=== PATIENT | female | born 1975 | race African-American/Black ===

== ENCOUNTER 2017-01-22 15:04 | Emergency (ER) | payer OTHER, MEDICARE ==
[2017-01-22] MEDS ORDERED: IBUPROFEN 600 MG TABLET PO ONE (15:48)
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
[2017-01-22 16:25] VITALS: BP 129/85
== END 2017-01-22 16:25 | disposition home or self-care (01) ==
LOC: ER 15:04
DX: M54.9 Dorsalgia, unspecified (principal); R51 Headache; V49.50XA Passenger injured in collision with unspecified motor vehicles in traffic accident, initial encounter; I10 Essential (primary) hypertension; E11.9 Type 2 diabetes mellitus without complications; G61.0 Guillain-Barre syndrome; G89.29 Other chronic pain; Z79.891 Long term (current) use of opiate analgesic; F17.210 Nicotine dependence, cigarettes, uncomplicated
CPT/HCPCS: 99283

== ENCOUNTER 2017-03-18 21:24 | Emergency (ER) | payer MEDICARE, MEDICAID ==
--- NOTE | 2017-03-18 22:19 | RADIOLOGY REPORT (SQ) ---
EXAM DESCRIPTION: ANKLE RIGHT COMPLETE COMPLETED DATE/TIME: 03/18/2017 10:04 pm REASON FOR STUDY: FALL/INJURY COMPARISON: None. NUMBER OF VIEWS: Three views. TECHNIQUE: AP, lateral, and oblique radiographic images acquired of the right ankle. LIMITATIONS: None. FINDINGS: MINERALIZATION: Normal. BONES: No acute fracture or dislocation. Tiny bony projection is identified at the level of the dist al tibia which may be related to previous trauma. This could also represent a tiny osteo chondroma. JOINTS: No effusions. SOFT TISSUES: Soft tissue swelling is identified. OTHER: Minimal plantar and Achilles tendon spurring is identified. IMPRESSION: Soft tissue swelling without evidence for fracture. TECHNICAL DOCUMENTATION: JOB ID: [id number] [employer]- All Rights Reserved
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
[2017-03-19] MEDS ORDERED: HYDROCODONE/ACETAMINOPHEN 5-325 MG 6 TAB/DSPK PO PRN (00:03)
--- NOTE | 2017-03-19 00:24 | ER Document Report ---
ED General - General Chief Complaint: Ankle Swelling Stated Complaint: FELL FOOT PAIN Time Seen by Provider: 03/18/17 22:16 TRAVEL OUTSIDE OF THE [place] IN LAST 30 DAYS: No - HPI Patient complains to provider of: Right foot pain ankle pain Notes: Patient states that she injured her right foot and right ankle when she fell to the floor tonight. Patient states difficulty in ambulating here patient denies any other pain in her proximal tib-fib or right knee. Denies any other injuries denies and loss of consciousness. - Related Data Allergies/Adverse Reactions: No Known Allergies Allergy (Unverified 01/22/17 15:15) Past Medical History - Social History Smoking Status: Current Every Day Smoker Frequency of alcohol use: None Drug Abuse: None Family History: CAD, DM, Hyperlipidemia, Hypertension Patient has suicidal ideation: No Patient has homicidal ideation: No - Past Medical History Cardiac Medical History: Reports: Hx Hypercholesterolemia, Hx Hypertension Pulmonary Medical History: Reports: Hx Asthma Endocrine Medical History: Reports: Hx Diabetes Mellitus Type 2 Renal/ Medical History: Denies: Hx Peritoneal Dialysis Musculoskeltal Medical History: Reports Hx Musculoskeletal Deformity - Carpal tunnel and heel spurs Past Surgical History: Reports: Hx Section, Hx Orthopedic Surgery - Immunizations Immunizations up to date: Yes Hx Diphtheria, Pertussis, Tetanus Vaccination: No Review of Systems - Review of Systems Constitutional: No symptoms reported EENT: No symptoms reported Cardiovascular: No symptoms reported Respiratory: No symptoms reported Gastrointestinal: No symptoms reported Genitourinary: No symptoms reported Female Genitourinary: No symptoms reported Musculoskeletal: Other - Right foot pain Skin: No symptoms reported Hematologic/Lymphatic: No symptoms reported Neurological/Psychological: No symptoms reported Physical Exam - Vital signs Vitals: Temp Pulse Resp BP Pulse Ox 98.2 F 86 18 156/77 H 99 03/18/17 21:29 03/18/17 21:29 03/18/17 21:29 03/18/17 21:29 03/18/17 21:29 Interpretation: Normal - General General appearance: Appears well, Alert - HEENT Head: Normocephalic, Atraumatic Eyes: Normal Pupils: PERRL - Respiratory Respiratory status: No respiratory distress Chest status: Nontender Breath sounds: Normal Chest palpation: Normal - Cardiovascular Rhythm: Regular Heart sounds: Normal auscultation Murmur: No - Abdominal Inspection: Normal Distension: No distension Bowel sounds: Normal Tenderness: Nontender Organomegaly: No organomegaly - Back Back: Normal, Nontender - Extremities General upper extremity: Normal inspection, Nontender, Normal color, Normal ROM , Normal temperature General lower extremity: Normal inspection, Tender - Tenderness to palpation of the right medial and lateral malleolus tenderness to palpation of the midfoot and at the MCP joint of the foot trace swelling left foot unaffected, Normal color, Normal ROM, Normal temperature, Normal weight bearing. No: Ann's sign - Neurological Neuro grossly intact: Yes Cognition: Normal Orientation: AAOx4 Ana Coma Scale Eye Opening: Spontaneous Ana Coma Scale Verbal: Oriented [place] Coma Scale Motor: Obeys Commands [place] Coma Scale Total: 15 Speech: Normal Motor strength normal: LUE, RUE, LLE, RLE Sensory: Normal - Psychological Associated symptoms: Normal affect, Normal mood - Skin Skin Temperature: Warm Skin Moisture: Dry Skin Color: Normal Course - Re-evaluation Re-evalutation: 03/19/17 00:55 Patient coming in for a right foot injury. X-rays are negative for any signs of fracture. Patient will be discharged home pain control Roger wrap and crutches patient was encouraged to elevate and ice the injury. Patient was encouraged follow-up in 7 days for repeat x-ray if the pain is not improved - Vital Signs Vital signs: Temp Pulse Resp BP Pulse Ox 98.2 F 79 20 153/81 H 100 03/18/17 21:29 03/19/17 00:29 03/19/17 00:29 03/19/17 00:29 03/19/17 00:29 Discharge - Discharge Clinical Impression: Foot pain Qualifiers: Laterality: right Qualified Code(s): M79.671 - Pain in right foot Ankle pain Qualifiers: Laterality: right Chronicity: acute Qualified Code(s): M25.571 - Pain in right ankle and joints of right foot Condition: Good Disposition: HOME, SELF-CARE Instructions: Roger Wrap ([facility]), Oral Narcotic Medication ([facility]), Sprained Ankle ( [facility]) Additional Instructions: You may take Tylenol or Motrin for your pain. You may take the pain medication prescribed for very severe pain. Return to the ER if symptoms worsen. Follow- up with your primary care physician. Your x-rays today show no signs of fracture more likely due sprain your foot and ankle when he fell to the floor. Please ice and elevate your injury. You may use the Roger wrap as needed for support Prescriptions: Hydrocodone Bit/Acetaminophen [Hydrocodon-Acetaminophen 5-325] 1 each PO Q6 #14 tablet Referrals: BRANDI LADD MD [Primary Care Provider] - Follow up in 1 week
[2017-03-19 00:30] VITALS: BP 153/81
== END 2017-03-19 00:29 | disposition home or self-care (01) ==
LOC: ER 21:24
DX: S99.921A Unspecified injury of right foot, initial encounter (principal); M25.571 Pain in right ankle and joints of right foot; M79.671 Pain in right foot; W19.XXXA Unspecified fall, initial encounter; F17.200 Nicotine dependence, unspecified, uncomplicated; E11.9 Type 2 diabetes mellitus without complications; I10 Essential (primary) hypertension; J45.909 Unspecified asthma, uncomplicated
CPT/HCPCS: 99283; 73610; 73620; A9270

== ENCOUNTER 2017-09-05 01:24 | Emergency (ER) | payer MEDICARE, MEDICAID ==
[2017-09-05] MEDS ORDERED: MORPHINE SULFATE IR 15 MG TABLET PO ONE (02:36)
[2017-09-05] MEDS ORDERED: IBUPROFEN 600 MG TABLET PO ONE (02:36)
[2017-09-05] MEDS ORDERED: ACETAMINOPHEN 325 MG TABLET PO ONE (02:36)
--- NOTE | 2017-09-05 02:38 | ER Document Report ---
ED General - General Chief Complaint: Foot Pain Stated Complaint: LEFT FOOT PAIN Time Seen by Provider: 09/05/17 02:04 Notes: Patient is a 42-year-old female with a past medical history of morbid obesity and diabetes who presents with 24 hours of left foot pain. Patient states that this started last night when she woke up the pain was substantially worse. She notes that the pain is over the entirety of the dorsum of her foot and has extended towards her ankle throughout the day today. Does describe it as a dull , constant, throbbing pain. Bearing weight on the foot or bending the foot worsens the pain. She has tried ibuprofen and Percocet with minimal improvement of the pain. She denies a history of similar symptoms in the past. She has not yet seen her primary care doctor regarding today's concerns. She does note that she has had some body aches and chills today but no recorded fevers. She has not had any vomiting. TRAVEL OUTSIDE OF THE [place] IN LAST 30 DAYS: No - Related Data Allergies/Adverse Reactions: No Known Allergies Allergy (Unverified 01/22/17 15:15) Past Medical History - General Information source: Patient - Social History Smoking Status: Never Smoker Frequency of alcohol use: None Drug Abuse: None Lives with: Family Family History: CAD, DM, Hyperlipidemia, Hypertension Patient has suicidal ideation: No Patient has homicidal ideation: No - Past Medical History Cardiac Medical History: Reports: Hx Hypercholesterolemia, Hx Hypertension Pulmonary Medical History: Reports: Hx Asthma Endocrine Medical History: Reports: Hx Diabetes Mellitus Type 2 Renal/ Medical History: Denies: Hx Peritoneal Dialysis Musculoskeltal Medical History: Reports Hx Musculoskeletal Deformity - Carpal tunnel and heel spurs Past Surgical History: Reports: Hx Section, Hx Orthopedic Surgery - Immunizations Immunizations up to date: Yes Hx Diphtheria, Pertussis, Tetanus Vaccination: No Review of Systems - Review of Systems Notes: Constitutional: Negative for fever. Positive for body aches HENT: Negative for sore throat. Eyes: Negative for visual changes. Cardiovascular: Negative for chest pain. Respiratory: Negative for shortness of breath. Gastrointestinal: Negative for abdominal pain, vomiting or diarrhea. Genitourinary: Negative for dysuria. Musculoskeletal: Positive for left foot pain Skin: Positive for rash. Neurological: Negative for headaches, weakness or numbness. 10 point ROS negative except as marked above and in HPI. Physical Exam - Vital signs Vitals: Temp Pulse Resp BP Pulse Ox 98.1 F 113 H 16 131/59 H 100 09/05/17 01:30 09/05/17 01:30 09/05/17 01:30 09/05/17 01:30 09/05/17 01:30 Interpretation: Tachycardic Notes: PHYSICAL EXAMINATION: GENERAL: Well-appearing, well-nourished and in no acute distress. HEAD: Atraumatic, normocephalic. EYES: Pupils equal round and reactive to light, extraocular movements intact, sclera anicteric, conjunctiva are normal. ENT: nares patent, oropharynx clear without exudates. Moist mucous membranes. NECK: Normal range of motion, supple without lymphadenopathy LUNGS: Breath sounds clear to auscultation bilaterally and equal. No wheezes rales or rhonchi. HEART: Regular rate and rhythm without murmurs. 2+ DP pulses bilaterally. ABDOMEN: Soft, nontender, normoactive bowel sounds. No guarding, no rebound. No masses appreciated. EXTREMITIES: Normal range of motion, swelling of the dorsum of the left foot extending up to the ankle. Extreme pain on palpation of this affected area. NEUROLOGICAL: No focal neurological deficits. Moves all extremities spontaneously and on command. PSYCH: Normal mood, normal affect. SKIN: Warm, Dry, normal turgor, erythema as above. No obvious open wounds of the left lower extremity. There are several areas of what appear to be prior bug bites. Course - Re-evaluation Re-evalutation: 09/05/17 02:36 Patient presents with findings most consistent with an acute cellulitis of her left foot extending up to the left ankle. Low clinical suspicion for an acute DVT as there is no actual edema or increase in the size of the left calf. She has no pain to the popliteal fossa. Gout is also on the differential but given that the erythema does spread up the dorsum of the foot and onto the ankle if this is far less likely. Will obtain an x-ray to exclude any acute occult fracture. Patient does not have any open wounds or ulcers to suggest a possible acute osteomyelitis. Will start on cephalexin recommend very close outpatient follow-up assuming x-ray is unremarkable. - Vital Signs Vital signs: Temp Pulse Resp BP Pulse Ox 98.1 F 113 H 16 131/59 H 100 09/05/17 01:30 09/05/17 01:30 09/05/17 01:30 09/05/17 01:30 09/05/17 01:30 - Diagnostic Test Radiology reviewed: Image reviewed, Reports reviewed Radiology results interpreted by me: 09/05/17 03:22 Left foot x-ray: No fracture or osteomyelitis Discharge - Discharge Clinical Impression: Cellulitis of left foot Condition: Good Disposition: HOME, SELF-CARE Additional Instructions: The rash is likely due to infection of your skin. You need to take the antibiotics as prescribed. Do not stop even if the rash goes away until you have completed all the antibiotics. You should also return if you develop fevers with temperature greater than 101, persistent vomiting, worsening pain, or have any other symptoms that are concerning to you. Prescriptions: Cephalexin Monohydrate [Keflex 500 mg Capsule] 500 mg PO Q6H 7 Days capsule Referrals: BRANDI LADD MD [Primary Care Provider] - Follow up in 3-5 days
--- NOTE | 2017-09-05 03:19 | RADIOLOGY REPORT (SQ) ---
EXAM DESCRIPTION: FOOT LEFT COMPLETE CLINICAL HISTORY: 42 years, Female, pain COMPARISON: None. NUMBER OF VIEWS: 3 TECHNIQUE: AP, oblique, and lateral views of the foot LIMITATIONS: None. FINDINGS: No acute fracture or dislocation. Tarsals and metatarsals are appropriately aligned. Osteopenia. IMPRESSION: No acute fracture or dislocation. 2011 [employer]- All Rights Reserved
[2017-09-05 04:07] VITALS: BP 126/68
== END 2017-09-05 04:07 | disposition home or self-care (01) ==
LOC: ER 01:24
DX: L03.116 Cellulitis of left lower limb (principal); M79.672 Pain in left foot; Z79.899 Other long term (current) drug therapy
CPT/HCPCS: 99283; 73630; A9270 ×3

== ENCOUNTER 2017-09-05 20:39 | Inpatient (IN) | payer MEDICARE, MEDICAID ==
[2017-09-05] MEDS ORDERED: HYDROMORPHONE HCL INJ/PF 2 MG/ML AMPULE IV ONE (22:09)
[2017-09-05] MEDS ORDERED: NORMAL SALINE 1000 ML 1,000 ML IV ONE (22:09)
--- NOTE | 2017-09-05 22:11 | ER Document Report ---
ED Medical Screen (RME) - General Chief Complaint: Foot Pain Stated Complaint: FOOT PAIN Time Seen by Provider: 09/05/17 21:57 Mode of Arrival: Wheelchair Information source: Patient Notes: Patient states that she was seen earlier here today for cellulitis to her left foot. Patient complains of left foot pain for the past 4 days. Patient has had 2 doses of the antibiotic that she was given. Patient complains of increased pain increased redness to her foot. Patient tachycardic. hx: Diabetes, hypertension, dyslipidemia TRAVEL OUTSIDE OF THE [place] IN LAST 30 DAYS: No - Related Data Allergies/Adverse Reactions: No Known Allergies Allergy (Unverified 01/22/17 15:15) Past Medical History - Past Medical History Cardiac Medical History: Reports: Hx Hypercholesterolemia, Hx Hypertension Pulmonary Medical History: Reports: Hx Asthma Endocrine Medical History: Reports: Hx Diabetes Mellitus Type 2 Renal/ Medical History: Denies: Hx Peritoneal Dialysis Musculoskeltal Medical History: Reports Hx Musculoskeletal Deformity - Carpal tunnel and heel spurs Past Surgical History: Reports: Hx Section, Hx Orthopedic Surgery - Immunizations Immunizations up to date: Yes Hx Diphtheria, Pertussis, Tetanus Vaccination: No Physical Exam - Vital signs Vitals: Temp Pulse Resp BP Pulse Ox 99.4 F 123 H 12 112/59 L 100 09/05/17 21:04 09/05/17 21:04 09/05/17 21:04 09/05/17 21:04 09/05/17 21:04 - Extremities General lower extremity: Tender, Edema. No: Normal color - Erythema to left foot extending up distal third of left lower extremity Course - Vital Signs Vital signs: Temp Pulse Resp BP Pulse Ox 99.4 F 123 H 12 112/59 L 100 09/05/17 21:04 09/05/17 21:04 09/05/17 21:04 09/05/17 21:04 09/05/17 21:04
[2017-09-05] MEDS ORDERED: VANCOMYCIN HCL INJ 1000 MG VIAL IV ONE (22:52)
[2017-09-05] MEDS ORDERED: PIPERACILLIN/TAZOBACTAM 3.375 GM VIAL IV ONE (22:52)
[2017-09-05 23:00] LABS: ABSOLUTE BASOPHILS # (AUTO) 0.1 10^3/uL (0.0-0.2); ABSOLUTE LYMPHOCYTES (AUTO) 2.1 10^3/uL (0.5-4.7); ABSOLUTE MONOCYTES (AUTO) 1.5 10^3/uL (0.1-1.4); ABSOLUTE NEUT (AUTO) 13.7 10^3/uL (1.7-8.2); BASOPHILS % (AUTO) 0.6 % (0-2); EOSINOPHILS % (AUTO) 0.3 % (0-6); HEMATOCRIT 27.5 % (36.0-47.0); HEMOGLOBIN 9.2 g/dL (12.0-15.5); HGB HCT DIFFERENCE 0.1; LYMPHOCYTES % (AUTO) 12.2 % (13-45); MEAN CORPUSCULAR HEMOGLOBIN 25.9 pg (27.0-33.4); MEAN CORPUSCULAR HGB CONC 33.5 g/dL (32.0-36.0); MEAN CORPUSCULAR VOLUME 78 fl (80-97); MONOCYTES % (AUTO) 8.7 % (3-13); RED BLOOD COUNT 3.55 10^6/uL (3.72-5.28); RED CELL DISTRIBUTION WIDTH 14.5 % (11.5-14.0); SEGMENTED NEUTROPHILS % (AUTO) 78.2 % (42-78); WHITE BLOOD COUNT 17.5 10^3/uL (4.0-10.5)
[2017-09-05 23:15] LABS: ALANINE AMINOTRANSFERASE 40 U/L (9-52); ALBUMIN 3.6 g/dL (3.5-5.0); ALKALINE PHOSPHATASE 116 U/L (38-126); ANION GAP 14 (5-19); ASPARTATE AMINO TRANSFERASE 36 U/L (14-36); BILIRUBIN,DIRECT 0.5 mg/dL (0.0-0.4); BILIRUBIN,TOTAL 1.3 mg/dL (0.2-1.3); BLOOD UREA NITROGEN 35 mg/dL (7-20); CALCIUM 8.8 mg/dL (8.4-10.2); CARBON DIOXIDE 25 mmol/L (22-30); CHLORIDE 99 mmol/L (98-107); CREATININE RESULT 1.82 mg/dL (0.52-1.25); POTASSIUM 3.9 mmol/L (3.6-5.0); SODIUM 137.8 mmol/L (137-145)
[2017-09-05 23:29] LABS: GLUCOSE 39 mg/dL (75-110)
--- NOTE | 2017-09-06 00:16 | ER Document Report ---
ED General - General Chief Complaint: Foot Pain Stated Complaint: FOOT PAIN Time Seen by Provider: 09/05/17 21:57 Mode of Arrival: Wheelchair Notes: Patient is a 42-year-old female presents with complaint of cellulitis in the left leg and foot. It is worsening. She was seen yesterday by Dr. Alcocer. She was placed on Keflex. Cellulitis has continued to worsen therefore she is coming to the ER. She has had subjective fevers at home. No vomiting. No diarrhea. She is a diabetic. She is overweight. She denies any wounds to the foot. X-ray yesterday was negative. TRAVEL OUTSIDE OF THE [place] IN LAST 30 DAYS: No - Related Data Allergies/Adverse Reactions: No Known Allergies Allergy (Unverified 01/22/17 15:15) Past Medical History - General Information source: Patient - Social History Smoking Status: Never Smoker Frequency of alcohol use: None Drug Abuse: None Family History: CAD, DM, Hyperlipidemia, Hypertension - Past Medical History Cardiac Medical History: Reports: Hx Hypercholesterolemia, Hx Hypertension Pulmonary Medical History: Reports: Hx Asthma Endocrine Medical History: Reports: Hx Diabetes Mellitus Type 2 Renal/ Medical History: Denies: Hx Peritoneal Dialysis Musculoskeltal Medical History: Reports Hx Musculoskeletal Deformity - Carpal tunnel and heel spurs Past Surgical History: Reports: Hx Section, Hx Orthopedic Surgery - Immunizations Immunizations up to date: Yes Hx Diphtheria, Pertussis, Tetanus Vaccination: No Review of Systems - Review of Systems Notes: My Normal Review Basic REVIEW OF SYSTEMS: CONSTITUTIONAL : Subjective fever RESPIRATORY: Denies cough, cold, or chest congestion. Denies shortness of breath, difficulty breathing, or wheezing. GASTROINTESTINAL: Denies abdominal pain. Denies nausea, vomiting, or diarrhea. Denies constipation. Last BM: MUSCULOSKELETAL: Redness and swelling to left foot. SKIN: Denies rash or skin lesions. NEUROLOGICAL: Denies altered mental status or loss of consciousness. Denies headache. Denies weakness or paralysis or loss of use of either side. Denies problems with gait or speech. Denies sensory or motor loss. ALL OTHER SYSTEMS REVIEWED AND NEGATIVE. Physical Exam - Vital signs Vitals: Temp Pulse Resp BP Pulse Ox 99.4 F 123 H 12 112/59 L 100 09/05/17 21:04 09/05/17 21:04 09/05/17 21:04 09/05/17 21:04 09/05/17 21:04 - Notes Notes: General Appearance: Well nourished, alert, cooperative, no acute distress, no obvious discomfort. Vitals: reviewed, See vital signs table. Head: no swelling or tenderness to the head Eyes: PERRL, EOMI, Conjuctiva clear Mouth: No decreasd moisture Neck: Supple, no neck tenderness, No thyromegaly Lungs: No wheezing, No rales, No rhonci, No accessory muscle use, good air exchange bilaterally. Heart: Tachycardic rate, Regular rythm, No murmur, no rub Extremities: strength 5/5 in all extremities, good pulses in all extremities, swollen erythematous left foot with redness going just past the ankle. No crepitance., no edema. Skin: warm, dry, appropriate color, no rash Neuro: speech clear, oriented x 3, normal affect, responds appropriately to questions. Course - Re-evaluation Re-evalutation: 09/06/17 00:12 Patient has worsening cellulitis of the foot with redness and swelling going up the leg. She is a white elevated white blood cell count. She is a diabetic. Feel is appropriate for admission. I did speak with Dr. Iglesias, hospitalist, who agrees to admit the patient. Patient did have a low blood sugar. But was astigmatic. We recheck this with an Accu-Chek and it was accurate. We gave her some food to eat. Dictation of this chart was performed using voice recognition software; therefore, there may be some unintended grammatical errors. - Vital Signs Vital signs: Temp Pulse Resp BP Pulse Ox 99.4 F 123 H 12 112/59 L 100 09/05/17 21:04 09/05/17 21:04 09/05/17 21:04 09/05/17 21:04 09/05/17 21:04 - Laboratory Result Diagrams: 09/05/17 22:50 09/05/17 22:50 Laboratory results interpreted by me: 09/05/17 09/05/17 22:50 22:50 WBC 17.5 H RBC 3.55 L Hgb 9.2 L Hct 27.5 L MCV 78 L MCH 25.9 L RDW 14.5 H Seg Neutrophils % 78.2 H Lymphocytes % 12.2 L Absolute Neutrophils 13.7 H Absolute Monocytes 1.5 H BUN 35 H Creatinine 1.82 H Est GFR ( Amer) 37 L Est GFR (Non-Af Amer) 30 L Glucose 39 L* Direct Bilirubin 0.5 H Discharge - Discharge Clinical Impression: Cellulitis of left foot Condition: Good Disposition: HOME, SELF-CARE Admitting Provider: Hospitalist Unit Admitted: Medical Floor
[2017-09-06] MEDS ORDERED: GLUCAGON,HUMAN RECOMB 1 MG INJ IM PRN (01:08)
[2017-09-06] MEDS ORDERED: DEXTROSE 50%-WATER 25 GM/50 ML DISP.SYRIN IV PRN ×2 (01:08)
[2017-09-06] MEDS ORDERED: INSULIN LISPRO 100 UNIT/ML 3 ML VIAL SUBCUT PRN ×2 (01:08→02:56)
[2017-09-06] MEDS ORDERED: DEXTROSE 40% GEL 15 GM TUBE PO PRN ×2 (01:08)
[2017-09-06] MEDS ORDERED: MAGNESIUM HYDROXIDE SUSP 30 ML UDCUP PO PRN (01:44)
[2017-09-06] MEDS ORDERED: MAG HYDROX/AL HYDROX/SIMETH SUSP 30 ML UDCUP PO PRN (01:44)
[2017-09-06] MEDS ORDERED: NORMAL SALINE 1000 ML 1,000 ML IV ONE (01:52)
[2017-09-06] MEDS ORDERED: DIPH/PERTUSS(ACELL)/TETANUS VAC/PF 0.5 ML SYR (>=10YO) IM ONE (01:56)
[2017-09-06] MEDS ORDERED: VANCOMYCIN HCL 0 MG in DEXTROSE 5%-WATER 250 ML IV NR (02:00)
[2017-09-06] MEDS ORDERED: NICOTINE 7 MG/24 HR PATCH.TD24 TD PRN (02:14)
--- NOTE | 2017-09-06 02:59 | PDOC H&P ---
History of Present Illness Admission Date/PCP: 09/06/17 00:55 Dr. Young History of Present Illness: RUTH WOOD is a 42 year old female with past medical history of diabetes mellitus, asthma, hypertension who presents to the emergency department with worsening cellulitis of her left lower extremity. Patient reports that on night she began having some pain in her foot on Thursday she states she could not walk on her foot and she presented to the emergency department. At that time she was given a prescription for Keflex. She reports that she went home and took several doses of this along with Motrin and Tylenol but has not improved. She returns to the emergency department where she is found to have a white count of 17,000 and significant left MTP joint involvement of her cellulitis. Patient was also notably hypoglycemic with blood sugar of 36 and was asymptomatic at that time. She had taken 76 units of Levemir and 8 units of sliding scale insulin. This improved with food. Patient is referred to the hospitalist service for sepsis and cellulitis. Patient's medications are currently undergoing reconciliation. She is able to tell me that she takes Trulicity, metformin, lisinopril, simvastatin, Prilosec, Invokana, Levemir, and sliding scale insulin. Past Medical History Cardiac Medical History: Reports: Hyperlipidema, Hypertension Pulmonary Medical History: Reports: Asthma, Sleep Apnea Endocrine Medical History: Reports: Diabetes Mellitus Type 2, Obesity Past Surgical History Past Surgical History: Reports: Section, Orthopedic Surgery, Other - Left eye surgery as a child Social History Smoking Status: Current Every Day Smoker Cigarettes Packs Per Day: 0.2 Frequency of Alcohol Use: Occasional Hx Recreational Drug Use: No Hx Prescription Drug Abuse: No - Advance Directive Resuscitation Status: Full Code Surrogate healthcare decision maker:: Sebastian Waggoner, brother Family History Family History: CAD, DM, Hyperlipidemia, Hypertension Parental Family History Reviewed: Yes Children Family History Reviewed: NA Sibling(s) Family History Reviewed.: Yes Medication/Allergy Home Medications: Hydrocodone/Acetaminophen [[place] 5-325 Tablet] 1 each PO Q6 #15 tablet 11/08/15 Hydrocodone Bit/Acetaminophen [Hydrocodon-Acetaminophen 5-325] 1 each PO Q6 #14 tablet 03/19/17 Cephalexin Monohydrate [Keflex 500 mg Capsule] 500 mg PO Q6H 7 Days capsule Allergies/Adverse Reactions: No Known Allergies Allergy (Unverified 01/22/17 15:15) Review of Systems Constitutional: PRESENT: anorexia, chills, fatigue, fever(s). ABSENT: headache( s), weight gain, weight loss Eyes: ABSENT: visual disturbances Ears: ABSENT: hearing changes Cardiovascular: ABSENT: chest pain, dyspnea on exertion, edema, orthropnea, palpitations Respiratory: ABSENT: cough, hemoptysis Gastrointestinal: ABSENT: abdominal pain, constipation, diarrhea, hematemesis, hematochezia, nausea, vomiting Genitourinary: ABSENT: dysuria, hematuria Musculoskeletal: PRESENT: joint swelling Integumentary: PRESENT: rash. ABSENT: wounds Neurological: ABSENT: abnormal gait, abnormal speech, confusion, dizziness, focal weakness, syncope Psychiatric: ABSENT: anxiety, depression, homidical ideation, suicidal ideation Endocrine: ABSENT: cold intolerance, heat intolerance, polydipsia, polyuria Hematologic/Lymphatic: ABSENT: easy bleeding, easy bruising Physical Exam Vital Signs: Temp Pulse Resp BP Pulse Ox 98.9 F 101 H 18 116/76 96 09/06/17 00:29 09/06/17 00:29 09/06/17 00:29 09/06/17 00:29 09/06/17 00:29 General appearance: PRESENT: obese, well-developed, well-nourished, other - Slightly confused after receiving Dilaudid Head exam: PRESENT: atraumatic, normocephalic Eye exam: PRESENT: conjunctiva pink, PERRLA. ABSENT: EOMI - Left eye lateral deviation, scleral icterus Ear exam: PRESENT: normal external ear exam Mouth exam: PRESENT: moist, tongue midline Neck exam: ABSENT: JVD, lymphadenopathy, thyromegaly, tracheal deviation Respiratory exam: PRESENT: clear to auscultation mary. ABSENT: rales, rhonchi, wheezes Cardiovascular exam: PRESENT: RRR, +S1, +S2. ABSENT: diastolic murmur, rubs, systolic murmur Pulses: PRESENT: normal dorsalis pedis pul Vascular exam: PRESENT: normal capillary refill GI/Abdominal exam: PRESENT: normal bowel sounds, soft. ABSENT: distended, guarding, mass, organolmegaly, rebound, tenderness Rectal exam: PRESENT: deferred Extremities exam: PRESENT: joint swelling - left first MTP. ABSENT: calf tenderness, clubbing, full ROM - Diminished range of motion of left first MTP, pedal edema Neurological exam: PRESENT: alert, awake, oriented to person, oriented to place , oriented to time, oriented to situation, CN II-XII grossly intact. ABSENT: motor sensory deficit Psychiatric exam: PRESENT: appropriate affect, normal mood. ABSENT: homicidal ideation, suicidal ideation Skin exam: PRESENT: dry, erythema, intact, rash - erythema over the left MTP going over the dorsum of the foot and up ankle, warm. ABSENT: cyanosis Results Laboratory Results: 09/05/17 09/05/17 09/05/17 22:50 22:50 23:20 WBC 17.5 H Hgb 9.2 L MCV 78 L Plt Count 307 BUN 35 H Creatinine 1.82 H Glucose 39 L* POC Glucose Lactic Acid 0.8 09/06/17 09/06/17 00:47 01:53 WBC Hgb MCV Plt Count BUN Creatinine Glucose POC Glucose 62 L 102 Lactic Acid Impressions: Foot x-ray from 09/05/2017 reveals osteopenia but no acute fracture dislocation Status: Imported from PACS Assessment & Plan - Diagnosis (1) Sepsis affecting skin Is this a current diagnosis for this admission?: Yes Plan: Secondary to cellulitis Present on admission Maintain map greater than 65 Bolus patient and run fluids at 150ml/hour. Place on broad-spectrum antibiotic coverage. Selected Entries 09/05/17 21:04 Temperature 99.4 F Pulse Rate 123 H Blood Pressure 112/59 L 09/05/17 22:50 WBC 17.5 H (2) Cellulitis of left foot Is this a current diagnosis for this admission?: Yes Plan: Given patient is septic, will place her on vancomycin and Zosyn. Have obtained blood cultures. Have consulted Dr. woodard of orthopedic surgery for recommendations as I have concern that this does involve her MTP joint. Will obtain a CRP. Also given Tdap as patient appears to have a puncture over the area of the MTP. (3) Acute renal failure Qualifiers: Acute renal failure type: unspecified Qualified Code(s): N17.9 - Acute kidney failure, unspecified Is this a current diagnosis for this admission?: Yes Plan: Concern that there may be a possibility for underlying renal dysfunction given her medications and underlying illnesses. Will rehydrate patient. (4) Diabetes mellitus type 1.5 Is this a current diagnosis for this admission?: Yes Plan: Place patient on sliding scale insulin. At this time due to her renal dysfunction we will hold her metformin and Invokana. Patient has already taken her Trulicity this week. Will resume a lower amount of levemir for this patient as she is taking poor po and plan to place patient on a 1800kcal ADA diet. (5) Hypertension Qualifiers: Hypertension type: essential hypertension Qualified Code(s): I10 - Essential (primary) hypertension Is this a current diagnosis for this admission?: Yes Plan: We will re-add antihypertensives as able when creatinine improves. (6) Asthma Qualifiers: Asthma severity: unspecified severity Asthma persistence: unspecified Asthma complication type: unspecified Qualified Code(s): J45.909 - Unspecified asthma, uncomplicated Is this a current diagnosis for this admission?: Yes Plan: prn albuterol (7) Tobacco abuse Is this a current diagnosis for this admission?: Yes Plan: Offered nicotine replacement patch and encourage cessation (8) Anemia Qualifiers: Anemia type: unspecified type Qualified Code(s): D64.9 - Anemia, unspecified Is this a current diagnosis for this admission?: Yes Plan: Check iron studies. Likely secondary to iron deficiency anemia from chronic blood loss due to being a menstruating female. (9) Morbid obesity with BMI of 50.0-59.9, adult Is this a current diagnosis for this admission?: Yes Plan: Encourage appropriate weight loss under the guidance of her physician - Time Time Spent: 30 to 50 Minutes Medications reviewed and adjusted accordingly: Yes Anticipated discharge: Home Within: Other - Upon improvement of symptomatology - Inpatient Certification Based on my medical assessment, after consideration of the patient's comorbidities, presenting symptoms, or acuity I expect that the services needed warrant INPATIENT care.: Yes I certify that my determination is in accordance with my understanding of Medicare's requirements for reasonable and necessary INPATIENT services [42 CFR 412.3e].: Yes Medical Necessity: Failure to Improve With Outpatient Therapy, Need For IV Fluids, Need for IV Antibiotics, Need for Surgery 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
[2017-09-06] MEDS ORDERED: VANCOMYCIN HCL INJ 1000 MG VIAL IV PRN (03:20)
[2017-09-06] MEDS ORDERED: VANCOMYCIN HCL 2,000 MG in DEXTROSE 5%-WATER 500 ML IV ONE ×2 (04:00→07:00)
[2017-09-06] MEDS ORDERED: VANCOMYCIN HCL INJ 1000 MG VIAL ONE (06:07)
[2017-09-06] MEDS ORDERED: PIPERACILLIN/TAZOBACTAM 2.25 GM VIAL IV ONE (06:07)
[2017-09-06] MEDS: NORMAL SALINE 1000 ML 1,000 ML IV PRN (06:30)
[2017-09-06] MEDS: PIPERACILLIN SODIUM/TAZOBACTAM 4.5 GM in NORMAL SALINE 100 ML IV SCH ×4 (06:30→23:13)
[2017-09-06] MEDS: HEPARIN SOD (PORCINE) 5,000 UNIT/ML 1 ML SYRINGE SUBCUT SCH ×3 (06:48→23:12)
[2017-09-06] MEDS: LANSOPRAZOLE 30 MG TAB.RAP.DR PO SCH ×2 (06:49→17:43)
[2017-09-06] MEDS: MORPHINE SULFATE 10 MG/ML INJ IV PRN ×2 (07:20→19:00)
--- NOTE | 2017-09-06 08:52 | PDOC CONSULTATION ---
History of Present Illness Admission Date/PCP: 09/06/17 00:55 History of Present Illness: RUTH WOOD is a 42 year old female who presented to emergency room with increasing pain swelling and redness of her left foot. She initially presented on Thursday and was given Keflex after several doses patient's symptoms failed to improve. States pain is worse with ambulation and motion of the great toe. She has seen her log carrier operator recently who told her it was likely early ulceration but no definitive signs or symptoms of infection at that examination were noted according to the patient. She states the pain has worsened over the past 2448 hrs. Notes fever and chills. She ultimately was admitted to the hospitalist service given sepsis criteria. Current pain 01/26. Past Medical History Cardiac Medical History: Reports: Hyperlipidema, Hypertension Pulmonary Medical History: Reports: Asthma, Sleep Apnea Endocrine Medical History: Reports: Diabetes Mellitus Type 2, Obesity Past Surgical History Past Surgical History: Reports: Section, Orthopedic Surgery, Other - Left eye surgery as a child Social History Smoking Status: Current Every Day Smoker Cigarettes Packs Per Day: 0.2 Frequency of Alcohol Use: Occasional Hx Recreational Drug Use: No Hx Prescription Drug Abuse: No - Advance Directive Resuscitation Status: Full Code Family History Family History: CAD, DM, Hyperlipidemia, Hypertension Parental Family History Reviewed: No Children Family History Reviewed: No Sibling(s) Family History Reviewed.: No Medication/Allergy Allergies/Adverse Reactions: No Known Allergies Allergy (Unverified 01/22/17 15:15) Review of Systems Constitutional: PRESENT: chills, fatigue, fever(s). ABSENT: headache(s), weight gain, weight loss Eyes: ABSENT: visual disturbances Ears: ABSENT: hearing changes Cardiovascular: ABSENT: chest pain, dyspnea on exertion, edema, orthropnea, palpitations Respiratory: ABSENT: cough, hemoptysis Gastrointestinal: ABSENT: abdominal pain, constipation, diarrhea, hematemesis, hematochezia, nausea, vomiting Genitourinary: ABSENT: dysuria, hematuria Musculoskeletal: PRESENT: as per HPI Integumentary: ABSENT: rash, wounds Neurological: ABSENT: abnormal gait, abnormal speech, confusion, dizziness, focal weakness, syncope Psychiatric: ABSENT: anxiety, depression, homidical ideation, suicidal ideation Endocrine: ABSENT: cold intolerance, heat intolerance, menstrual abnormalities, polydipsia, polyuria Hematologic/Lymphatic: ABSENT: easy bleeding, easy bruising, lymphadenopathy Physical Exam Vital Signs: Temp Pulse Resp BP Pulse Ox 97.7 F 81 17 104/64 98 09/06/17 02:51 09/06/17 02:51 09/06/17 02:51 09/06/17 02:51 09/06/17 02:51 Intake & Output 09/05/17 09/06/17 09/07/17 06:59 06:59 06:59 Weight 138.1 kg General appearance: PRESENT: no acute distress, cooperative, disheveled, morbidly obese, well-developed, well-nourished Head exam: PRESENT: atraumatic, normocephalic Eye exam: PRESENT: conjunctiva pink, EOMI, PERRLA. ABSENT: scleral icterus Ear exam: PRESENT: normal external ear exam Mouth exam: PRESENT: moist, tongue midline Neck exam: PRESENT: full ROM. ABSENT: carotid bruit, JVD, lymphadenopathy, thyromegaly Respiratory exam: PRESENT: unlabored Cardiovascular exam: PRESENT: RRR. ABSENT: diastolic murmur, rubs, systolic murmur Pulses: PRESENT: normal dorsalis pedis pul, +2 pedal pulses bilateral Vascular exam: PRESENT: normal capillary refill GI/Abdominal exam: PRESENT: normal bowel sounds, soft. ABSENT: distended, guarding, mass, organolmegaly, rebound, tenderness Rectal exam: PRESENT: deferred Musculoskeletal exam: PRESENT: other - Left lower extremity: Redness and erythema notably along the dorsum of the foot extending to just distal to the ankle joint. No pain with ankle range of motion. No streaking erythema or lymphangitis. No pain with passive range of motion of the MTP joints. Tenderness dorsally along the foot. Small wound along the plantar medial aspect of the MTP joint no palpable fluctuance or drainage from this region. Neurological exam: PRESENT: alert, awake, oriented to person, oriented to place , oriented to time, oriented to situation, CN II-XII grossly intact. ABSENT: motor sensory deficit Psychiatric exam: PRESENT: appropriate affect, normal mood. ABSENT: homicidal ideation, suicidal ideation Skin exam: PRESENT: dry, intact, warm. ABSENT: cyanosis, rash Results Status: Image reviewed by me - I have reviewed patient's radiographs which demonstrate no evidence of acute abnormality. Minimal soft tissue swelling. No evidence of pathologic osseous changes. Assessment & Plan - Diagnosis (1) Cellulitis of left foot Is this a current diagnosis for this admission?: Yes Plan: On examination patient has findings consistent with cellulitis I do not appreciate definitive underlying septic arthritis of the MTP joint given her limited pain with motion but considering her elevated WBC and systemic abnormalities we will obtain an MRI to further evaluate possible deep etiology. Furthermore I have also consulted patient's log carrier operator Dr. Veliz who has seen the patient in the past. Patient will continue IV antibiotics as per hospitalist recommendation.
[2017-09-06] MEDS: DOCUSATE SODIUM 100 MG CAPSULE PO SCH ×2 (09:19→17:43)
--- NOTE | 2017-09-06 11:50 | RADIOLOGY REPORT (SQ) ---
EXAM DESCRIPTION: MRI LT LOWER EXTREMITY WITHOUT COMPLETED DATE/TIME: 09/06/2017 11:23 am REASON FOR STUDY: Abscess vs. Osteomyelitis A40.8 OTHER STREPTOCOCCAL SEPSIS E08.22 DIABETES DUE T O UNDRL COND W DIABETIC CHRONIC KIDNEY COMPARISON: None. TECHNIQUE: Multiplanar imaging of the left foot and lower leg. To include fat and fluid sensitive se quences. LIMITATIONS: None. FINDINGS: BONE MARROW: No marrow signal alteration. Specifically no marrow replacement or marrow ed elli. No evidence for osteomyelitis. No cortical break through. SOFT TISSUES: Diffuse soft tissue swelling primarily along the dorsum of the foot. No soft tissue ab scess. OTHER: No other significant finding. IMPRESSION: DIFFUSE SOFT TISSUE SWELLING, PRIMARILY ALONG THE DORSUM OF THE FOOT. NO ABSCESS. NO E VIDENCE FOR OSTEOMYELITIS. TECHNICAL DOCUMENTATION: JOB ID: [id number] [employer]- All Rights Reserved
--- NOTE | 2017-09-06 13:26 | PDOC PROGRESS REPORT ---
Subjective Progress Note for:: 09/06/17 Physical Exam Vital Signs: Temp Pulse Resp BP Pulse Ox 98.4 F 91 18 129/57 H 100 09/06/17 11:28 09/06/17 11:28 09/06/17 11:28 09/06/17 11:28 09/06/17 11:28 Intake & Output 09/05/17 09/06/17 09/07/17 06:59 06:59 06:59 Weight 138.1 kg GENERAL: This is a well-developed well-nourished appearing, obese - [place] female sitting on the side of her bed eating lunch. HEART: Regular rate and rhythm. No murmurs, rubs or gallops. LUNGS: Clear to auscultation bilaterally with equal rise and fall of the chest. ABDOMEN: Soft, nontender, nondistended with normoactive bowel sounds EXTREMETIES: No clubbing, cyanosis. 2+ peripheral pulses on the left. The pulses on the right are more difficult to palpate secondary to edema. NEURO: Awake, alert and oriented 3. Cranial nerves II through XII are grossly intact. Skin: The left foot is swollen with 2+ edema. There is erythema across the dorsum of the foot. I do not detect any fungal elements between the toes. There is a healed wound under the first MTP. There is warmth on palpation. Results Impressions: Lower Extremity MRI 09/06/17 00:00 IMPRESSION: DIFFUSE SOFT TISSUE SWELLING, PRIMARILY ALONG THE DORSUM OF THE FOOT. NO ABSCESS. NO EVIDENCE FOR OSTEOMYELITIS. Assessment & Plan - Diagnosis (1) Cellulitis of left foot Is this a current diagnosis for this admission?: Yes Plan: Continue Vancocin Zosyn for now. (2) Acute renal failure Qualifiers: Acute renal failure type: unspecified Qualified Code(s): N17.9 - Acute kidney failure, unspecified Is this a current diagnosis for this admission?: Yes Plan: Continue to monitor. Repeat labs in the morning. Continue IV fluids for now. (3) Anemia Qualifiers: Anemia type: unspecified type Qualified Code(s): D64.9 - Anemia, unspecified Is this a current diagnosis for this admission?: Yes Plan: Stable. Check anemia panel. (4) Diabetes mellitus type 1.5 Is this a current diagnosis for this admission?: Yes Plan: Continue home regimen. Continue sliding scale insulin and before meals at bedtime blood sugar checks. As the patient's diet is controlled here in the hospital, we might need to adjust her insulin as appropriate. (5) Hypertension Qualifiers: Hypertension type: essential hypertension Qualified Code(s): I10 - Essential (primary) hypertension Is this a current diagnosis for this admission?: Yes Plan: Continue to monitor. The patient is not on anything at home. Blood pressures are very stable and reasonable. (6) Morbid obesity with BMI of 50.0-59.9, adult Is this a current diagnosis for this admission?: Yes Plan: Weight loss through dietary changes and exercise as tolerated. (7) Tobacco abuse Is this a current diagnosis for this admission?: Yes Plan: Smoking cessation is advised. - Time Time Spent with patient: 25-34 minutes Anticipated discharge: Home
[2017-09-06 14:49] LABS: CREATININE RESULT 1.62 mg/dL (0.52-1.25)
[2017-09-06] MEDS: INSULIN DETEMIR 100 UNIT/ML 3 ML PEN SUBCUT SCH (22:59)
[2017-09-07 05:15] LABS: ABSOLUTE MONOCYTES (AUTO) 1.3 10^3/uL (0.1-1.4); ABSOLUTE NEUT (AUTO) 9.9 10^3/uL (1.7-8.2); BASOPHILS % (AUTO) 0.2 % (0-2); EOSINOPHILS % (AUTO) 0.2 % (0-6); HEMATOCRIT 25.5 % (36.0-47.0); HEMOGLOBIN 8.5 g/dL (12.0-15.5); LYMPHOCYTES % (AUTO) 14.9 % (13-45); MEAN CORPUSCULAR HEMOGLOBIN 25.9 pg (27.0-33.4); MEAN CORPUSCULAR HGB CONC 33.2 g/dL (32.0-36.0); MEAN CORPUSCULAR VOLUME 78 fl (80-97); MONOCYTES % (AUTO) 9.7 % (3-13); RED BLOOD COUNT 3.27 10^6/uL (3.72-5.28); RED CELL DISTRIBUTION WIDTH 14.5 % (11.5-14.0); WHITE BLOOD COUNT 13.2 10^3/uL (4.0-10.5)
[2017-09-07 05:27] LABS: STAIN REACTIVITY CHECK ACCEPTABLE
[2017-09-07 05:28] LABS: ANION GAP 13 (5-19); BLOOD UREA NITROGEN 23 mg/dL (7-20); CALCIUM 8.5 mg/dL (8.4-10.2); CARBON DIOXIDE 20 mmol/L (22-30); CHLORIDE 108 mmol/L (98-107); CREATININE RESULT 1.61 mg/dL (0.52-1.25); GLUCOSE 111 mg/dL (75-110); POTASSIUM 4.1 mmol/L (3.6-5.0); SODIUM 140.9 mmol/L (137-145)
[2017-09-07] MEDS: LANSOPRAZOLE 30 MG TAB.RAP.DR PO SCH ×2 (06:16→17:28)
[2017-09-07] MEDS: PIPERACILLIN SODIUM/TAZOBACTAM 4.5 GM in NORMAL SALINE 100 ML IV SCH ×4 (06:16→23:48)
[2017-09-07] MEDS: HEPARIN SOD (PORCINE) 5,000 UNIT/ML 1 ML SYRINGE SUBCUT SCH ×3 (06:16→21:23)
[2017-09-07] MEDS: VANCOMYCIN HCL 2,000 MG in DEXTROSE 5%-WATER 500 ML IV SCH (06:54)
--- NOTE | 2017-09-07 07:10 | PDOC CONSULTATION ---
Consultation Consult Date: 09/07/17 Consult reason:: Diabetic infection of the left foot History of Present Illness Admission Date/PCP: 09/06/17 00:55 Past Medical History Cardiac Medical History: Reports: Hyperlipidema, Hypertension Pulmonary Medical History: Reports: Asthma, Sleep Apnea Endocrine Medical History: Reports: Diabetes Mellitus Type 2, Obesity Past Surgical History Past Surgical History: Reports: Section, Orthopedic Surgery, Other - Left eye surgery as a child Social History Smoking Status: Current Every Day Smoker Cigarettes Packs Per Day: 0.2 Frequency of Alcohol Use: Occasional Hx Recreational Drug Use: No Hx Prescription Drug Abuse: No - Advance Directive Resuscitation Status: Full Code Family History Family History: CAD, DM, Hyperlipidemia, Hypertension Parental Family History Reviewed: Yes Children Family History Reviewed: NA Sibling(s) Family History Reviewed.: Yes Medication/Allergy Home Medications: Albuterol Sulfate [Proair HFA Inhalation Aerosol 8.5 gm MDI] 2 puff IH Q4HP PRN 09/06/17 Aspirin [Aspirin EC] 81 mg PO DAILY 09/06/17 Fluticasone/Salmeterol [Advair 500-50 Diskus 28 Dose] 1 puff IH Q12 09/06/17 Insulin Aspart [Novolog Insulin (Aspart) 100 unit/mL] See Protocol SUBCUT MEALS 09/06/17 Insulin Detemir [Levemir Flextouch] 76 units SUBCUT QHS 09/06/17 Lisinopril/Hydrochlorothiazide [Lisinopril-Hctz 20-25 mg Tab] 1 tab PO DAILY Metformin HCl [Glucophage] 850 mg PO BID 09/06/17 Omeprazole 20 mg PO DAILY 09/06/17 Simvastatin [Zocor 40 mg Tablet] 40 mg PO QHS 09/06/17 Allergies/Adverse Reactions: No Known Allergies Allergy (Unverified 01/22/17 15:15) Review of Systems All systems: as per PMH Physical Exam Vital Signs: Temp Pulse Resp BP Pulse Ox 37.6 C 107 H 18 104/53 L 98 09/06/17 23:45 09/06/17 23:45 09/06/17 23:45 09/06/17 23:45 09/06/17 23:45 Intake & Output 09/05/17 09/06/17 09/07/17 06:59 06:59 06:59 Intake Total 4285 Balance 4285 Weight 138.1 kg 139.3 kg General appearance: PRESENT: no acute distress, well-developed, well-nourished Head exam: PRESENT: atraumatic, normocephalic Respiratory exam: PRESENT: unlabored Pulses: PRESENT: normal dorsalis pedis pul, +2 pedal pulses bilateral Vascular exam: PRESENT: normal capillary refill Extremities exam: PRESENT: tenderness Additional comments: Patient lying recumbent in hospital bed with left lower extremity in full extension. Patient is sooner to palpation along the dorsal and plantar aspect of the left foot. Is +2 pitting edema present on the left foot there is also evidence of erythema raised to the level of the left ankle. There is no evidence of superficial abrasion or open weeping sores at this time. She has brisk capillary refill to toes on bilateral feet. Her sensory motor functions are intact and her distal neurovascular exam is intact. Musculoskeletal exam: PRESENT: ambulatory Additional comments: Patient is ambulatory however remains dependent on her right leg for weightbearing. Patient notes pain with weightbearing and ambulation on the left foot. Neurological exam: PRESENT: alert, awake, oriented to person, oriented to place , oriented to time, oriented to situation, CN II-XII grossly intact. ABSENT: motor sensory deficit Psychiatric exam: PRESENT: appropriate affect, normal mood. ABSENT: homicidal ideation, suicidal ideation Skin exam: PRESENT: intact, warm Additional comments: As noted above there is no evidence of superficial abrasion or open weeping sores on the left foot. The skin is erythematous and warm and tender to touch. Her sensory and motor functions are intact. Results Laboratory Results: 09/07/17 04:16 09/07/17 04:16 09/06/17 09/07/17 09/07/17 14:02 04:16 04:16 WBC 13.2 H RBC 3.27 L Hgb 8.5 L Hct 25.5 L MCV 78 L MCH 25.9 L MCHC 33.2 RDW 14.5 H Plt Count 268 Seg Neutrophils % 75.0 Lymphocytes % 14.9 Monocytes % 9.7 Eosinophils % 0.2 Basophils % 0.2 Absolute Neutrophils 9.9 H Absolute Lymphocytes 2.0 Absolute Monocytes 1.3 Absolute Eosinophils 0.0 Absolute Basophils 0.0 Retic Count (auto) 1.37 Absolute Retic 0.045 Sodium 140.9 Potassium 4.1 Chloride 108 H Carbon Dioxide 20 L Anion Gap 13 BUN 23 H Creatinine 1.62 H 1.61 H Est GFR ( Amer) 42 L 42 L Est GFR (Non-Af Amer) 35 L 35 L Glucose 111 H Calcium 8.5 Iron < 10.1 L TIBC 297 % Saturation UNABLE TO CALCULATE Ferritin 65.50 Vitamin B12 402.0 Folate 17.90 Impressions: Lower Extremity MRI 09/06/17 00:00 IMPRESSION: DIFFUSE SOFT TISSUE SWELLING, PRIMARILY ALONG THE DORSUM OF THE FOOT. NO ABSCESS. NO EVIDENCE FOR OSTEOMYELITIS. Assessment & Plan - Diagnosis (1) Cellulitis of left foot Is this a current diagnosis for this admission?: Yes - Plan Summary Plan Summary: 42-year-old -[place] female with cellulitis of left foot. We were consulted to assess for possible surgical intervention for this left foot infection. However as there is no superficial abrasion or open sore indicating a source of infection, it seems reasonable to have the patient continue IV antibiotics including vancomycin and Zosyn. We do not see a need for surgical intervention, such as aggressive debridement or washout at this time. This infection should resolve satisfactorily with completion of IV antibiotics and patient will remain under the care of the hospitalist at this time. We appreciate that we were consulted for this issue.
[2017-09-07] MEDS: DOCUSATE SODIUM 100 MG CAPSULE PO SCH ×2 (09:06→17:28)
[2017-09-07] MEDS: OXYCODONE-ACETAMINOPHEN 5-325 MG TABLET PO PRN ×3 (09:07→21:20)
[2017-09-07] MEDS ORDERED: FERUMOXYTOL 510 MG in NORMAL SALINE 100 ML IV ONE ×2 (10:45→13:00)
--- NOTE | 2017-09-07 12:07 | PDOC PROGRESS REPORT ---
Subjective Progress Note for:: 09/07/17 Subjective:: This is a follow-up visit for cellulitis of the left foot. I discussed in detail with the patient about her history of anemia. She states that she was only anemic at one time and her past. But she is unaware of any current anemia. I informed her that her iron registered less than 10. I have also informed her that I will give her some IV iron and start her on p.o. supplementation tomorrow. The patient is in agreement. She states that she still gets her periods and that they usually last 3 days with the first day being heavy in the last 2 days being light. She does confirm that she has tiredness and weakness. She also has sensation of cold intolerance. Her thyroid has not been checked in the last several months. Patient was also following or there was an outpatient. Apparently she had arterial Doppler scheduled for today. The office is called and asked that they be performed here in the hospital. The nursing staff is already put them in. Physical Exam Vital Signs: Temp Pulse Resp BP Pulse Ox 99.0 F 101 H 18 144/68 H 98 09/07/17 07:37 09/07/17 07:37 09/07/17 07:37 09/07/17 07:37 09/07/17 07:37 Intake & Output 09/06/17 09/07/17 09/08/17 06:59 06:59 06:59 Intake Total 4285 Balance 4285 Weight 138.1 kg 139.3 kg GENERAL: This is a well-developed well-nourished appearing, obese - [place] female sitting on the side of her bed HEART: Regular rate and rhythm. No murmurs, rubs or gallops. LUNGS: Clear to auscultation bilaterally with equal rise and fall of the chest. ABDOMEN: Soft, nontender, nondistended with normoactive bowel sounds EXTREMETIES: No clubbing, cyanosis. 2+ peripheral pulses on the left. The pulses on the right are more difficult to palpate secondary to edema. The edema is less today. NEURO: Awake, alert and oriented 3. Cranial nerves II through XII are grossly intact. Skin: The left foot is swollen with 1+ edema. There is less erythema across the dorsum of the foot. I do not detect any fungal elements between the toes. There is a healed wound under the first MTP. There is warmth on palpation. Results Laboratory Results: 09/07/17 04:16 09/07/17 04:16 09/06/17 09/07/17 09/07/17 14:02 04:16 04:16 WBC 13.2 H RBC 3.27 L Hgb 8.5 L Hct 25.5 L MCV 78 L MCH 25.9 L MCHC 33.2 RDW 14.5 H Plt Count 268 Seg Neutrophils % 75.0 Lymphocytes % 14.9 Monocytes % 9.7 Eosinophils % 0.2 Basophils % 0.2 Absolute Neutrophils 9.9 H Absolute Lymphocytes 2.0 Absolute Monocytes 1.3 Absolute Eosinophils 0.0 Absolute Basophils 0.0 Retic Count (auto) 1.37 Absolute Retic 0.045 Sodium 140.9 Potassium 4.1 Chloride 108 H Carbon Dioxide 20 L Anion Gap 13 BUN 23 H Creatinine 1.62 H 1.61 H Est GFR ( Amer) 42 L 42 L Est GFR (Non-Af Amer) 35 L 35 L Glucose 111 H Calcium 8.5 Iron < 10.1 L TIBC 297 % Saturation UNABLE TO CALCULATE Ferritin 65.50 Vitamin B12 402.0 Folate 17.90 Impressions: Lower Extremity MRI 09/06/17 00:00 IMPRESSION: DIFFUSE SOFT TISSUE SWELLING, PRIMARILY ALONG THE DORSUM OF THE FOOT. NO ABSCESS. NO EVIDENCE FOR OSTEOMYELITIS. Assessment & Plan - Diagnosis (1) Cellulitis of left foot Is this a current diagnosis for this admission?: Yes Plan: Continue Vancocin Zosyn for now. (2) Acute renal failure Qualifiers: Acute renal failure type: unspecified Qualified Code(s): N17.9 - Acute kidney failure, unspecified Is this a current diagnosis for this admission?: Yes Plan: Continue to monitor. Improved. Creatinine is now down to 1.6. Unknown baseline. Repeat labs in the morning. Continue IV fluids for now. (3) Anemia Qualifiers: Anemia type: iron deficiency Iron deficiency anemia type: inadequate dietary iron intake Qualified Code(s): D50.8 - Other iron deficiency anemias Is this a current diagnosis for this admission?: Yes Plan: Stable. Hemoglobin is 8.5. This could be due to chronic blood loss through menstruation. I suspect that it is just simply iron deficiency given her iron levels. Will transfuse Feraheme today and begin supplemental iron p.o. tomorrow. Guaiac stools. Add TSH. (4) Diabetes mellitus type 1.5 Is this a current diagnosis for this admission?: Yes Plan: Continue home regimen. Continue sliding scale insulin and before meals at bedtime blood sugar checks. As the patient's diet is controlled here in the hospital, we might need to adjust her insulin as appropriate. (5) Hypertension Qualifiers: Hypertension type: essential hypertension Qualified Code(s): I10 - Essential (primary) hypertension Is this a current diagnosis for this admission?: Yes Plan: Continue to monitor. The patient is not on anything at home. Blood pressures are very stable and reasonable. (6) Morbid obesity with BMI of 50.0-59.9, adult Is this a current diagnosis for this admission?: Yes Plan: Weight loss through dietary changes and exercise as tolerated. (7) Tobacco abuse Is this a current diagnosis for this admission?: Yes Plan: Smoking cessation is advised. - Time Time Spent with patient: 15-24 minutes Anticipated discharge: Home
[2017-09-07] MEDS: INSULIN DETEMIR 100 UNIT/ML 3 ML PEN SUBCUT SCH (21:24)
[2017-09-08 04:27] LABS: ABSOLUTE BASOPHILS # (AUTO) 0.1 10^3/uL (0.0-0.2); ABSOLUTE EOSINOPHILS # (AUTO) 0.1 10^3/uL (0.0-0.6); ABSOLUTE LYMPHOCYTES (AUTO) 2.2 10^3/uL (0.5-4.7); ABSOLUTE MONOCYTES (AUTO) 1.2 10^3/uL (0.1-1.4); ABSOLUTE NEUT (AUTO) 10.8 10^3/uL (1.7-8.2); BASOPHILS % (AUTO) 0.8 % (0-2); EOSINOPHILS % (AUTO) 0.4 % (0-6); HEMATOCRIT 25.8 % (36.0-47.0); HEMOGLOBIN 8.4 g/dL (12.0-15.5); HGB HCT DIFFERENCE -0.6; LYMPHOCYTES % (AUTO) 15.5 % (13-45); MEAN CORPUSCULAR HEMOGLOBIN 25.3 pg (27.0-33.4); MEAN CORPUSCULAR HGB CONC 32.6 g/dL (32.0-36.0); MEAN CORPUSCULAR VOLUME 78 fl (80-97); MONOCYTES % (AUTO) 8.5 % (3-13); RED BLOOD COUNT 3.32 10^6/uL (3.72-5.28); RED CELL DISTRIBUTION WIDTH 14.5 % (11.5-14.0); SEGMENTED NEUTROPHILS % (AUTO) 74.8 % (42-78); WHITE BLOOD COUNT 14.5 10^3/uL (4.0-10.5)
[2017-09-08 04:58] LABS: ANION GAP 12 (5-19); BLOOD UREA NITROGEN 15 mg/dL (7-20); CALCIUM 8.8 mg/dL (8.4-10.2); CARBON DIOXIDE 21 mmol/L (22-30); CHLORIDE 109 mmol/L (98-107); CREATININE RESULT 1.29 mg/dL (0.52-1.25); GLUCOSE 78 mg/dL (75-110); MAGNESIUM 2.3 mg/dL (1.6-2.3); POTASSIUM 3.7 mmol/L (3.6-5.0); SODIUM 141.9 mmol/L (137-145)
[2017-09-08] MEDS: ONDANSETRON HCL INJ/PF 4 MG/2 ML SDV IV PRN ×2 (05:31→10:34)
[2017-09-08] MEDS: PIPERACILLIN SODIUM/TAZOBACTAM 4.5 GM in NORMAL SALINE 100 ML IV SCH ×3 (05:35→18:15)
[2017-09-08] MEDS: OXYCODONE-ACETAMINOPHEN 5-325 MG TABLET PO PRN ×2 (05:35→15:01)
[2017-09-08] MEDS: HEPARIN SOD (PORCINE) 5,000 UNIT/ML 1 ML SYRINGE SUBCUT SCH ×3 (05:35→21:14)
[2017-09-08] MEDS: LANSOPRAZOLE 30 MG TAB.RAP.DR PO SCH ×2 (05:35→18:01)
[2017-09-08] MEDS: NORMAL SALINE 1000 ML 1,000 ML IV PRN ×2 (05:38→16:47)
[2017-09-08] MEDS: VANCOMYCIN HCL 2,000 MG in DEXTROSE 5%-WATER 500 ML IV SCH (06:49)
[2017-09-08] MEDS: FERROUS SULFATE 325 MG TABLET PO SCH ×3 (09:29→18:01)
[2017-09-08] MEDS: DOCUSATE SODIUM 100 MG CAPSULE PO SCH ×2 (09:29→18:02)
--- NOTE | 2017-09-08 14:00 | PDOC PROGRESS REPORT ---
Subjective Progress Note for:: 09/08/17 Subjective:: Complains of pain in her foot. Physical Exam Vital Signs: Temp Pulse Resp BP Pulse Ox 97.7 F 84 16 144/95 H 98 09/08/17 11:23 09/08/17 11:23 09/08/17 11:23 09/08/17 11:23 09/08/17 11:23 Intake & Output 09/07/17 09/08/17 09/09/17 06:59 06:59 06:59 Intake Total 4285 5768 Output Total 100 Balance 4285 5668 Weight 139.3 kg 139.6 kg General appearance: PRESENT: no acute distress Eye exam: PRESENT: conjunctiva pink. ABSENT: scleral icterus Mouth exam: PRESENT: moist, tongue midline Neck exam: ABSENT: JVD Respiratory exam: PRESENT: clear to auscultation mary. ABSENT: rales, rhonchi, wheezes Cardiovascular exam: PRESENT: RRR. ABSENT: diastolic murmur, rubs, systolic murmur GI/Abdominal exam: PRESENT: normal bowel sounds, soft. ABSENT: distended, guarding, mass, organolmegaly, rebound, tenderness Extremities exam: PRESENT: pedal edema, +1 edema. ABSENT: calf tenderness, clubbing Neurological exam: PRESENT: alert, awake, oriented to person, oriented to place , oriented to time, oriented to situation, CN II-XII grossly intact. ABSENT: motor sensory deficit Psychiatric exam: PRESENT: appropriate affect Skin exam: PRESENT: other - Left leg with erythema to mid [place]. Results Laboratory Results: 09/08/17 04:06 09/08/17 04:06 09/08/17 09/08/17 09/08/17 04:06 04:06 04:06 WBC 14.5 H RBC 3.32 L Hgb 8.4 L Hct 25.8 L MCV 78 L MCH 25.3 L MCHC 32.6 RDW 14.5 H Plt Count 272 Seg Neutrophils % 74.8 Lymphocytes % 15.5 Monocytes % 8.5 Eosinophils % 0.4 Basophils % 0.8 Absolute Neutrophils 10.8 H Absolute Lymphocytes 2.2 Absolute Monocytes 1.2 Absolute Eosinophils 0.1 Absolute Basophils 0.1 Sodium 141.9 Potassium 3.7 Chloride 109 H Carbon Dioxide 21 L Anion Gap 12 BUN 15 Creatinine 1.29 H Est GFR ( Amer) 55 L Est GFR (Non-Af Amer) 45 L Glucose 78 Calcium 8.8 Magnesium 2.3 TSH 1.04 Impressions: Lower Extremity MRI 09/06/17 00:00 IMPRESSION: DIFFUSE SOFT TISSUE SWELLING, PRIMARILY ALONG THE DORSUM OF THE FOOT. NO ABSCESS. NO EVIDENCE FOR OSTEOMYELITIS. Assessment & Plan - Diagnosis (1) Cellulitis of left foot Is this a current diagnosis for this admission?: Yes Plan: The patient's cultures are negative so far. Continue with vancomycin and Zosyn. (2) Acute renal failure Qualifiers: Acute renal failure type: unspecified Qualified Code(s): N17.9 - Acute kidney failure, unspecified Is this a current diagnosis for this admission?: Yes Plan: This has improved with IV fluids. (3) Anemia Qualifiers: Anemia type: iron deficiency Iron deficiency anemia type: inadequate dietary iron intake Qualified Code(s): D50.8 - Other iron deficiency anemias Is this a current diagnosis for this admission?: Yes (4) Diabetes mellitus type 1.5 Is this a current diagnosis for this admission?: Yes Plan: Highest blood sugar so far is 153. (5) Hypertension Qualifiers: Hypertension type: essential hypertension Qualified Code(s): I10 - Essential (primary) hypertension Is this a current diagnosis for this admission?: Yes (6) Morbid obesity with BMI of 50.0-59.9, adult Is this a current diagnosis for this admission?: Yes - Time Time Spent with patient: 25-34 minutes - Inpatient Certification Medical Necessity: Need for IV Antibiotics
--- NOTE | 2017-09-08 15:40 | XCELERA REPORT ---
[address] [address] Lower Extremity Arterial Evaluation Name: RUTH WOOD Age: 42 yrs Gender: Female : 1975 Patient Status: Inpatient Patient Location: [address] [place] [address] Study Date: 09/08/2017 08:53 AM Procedure: A color flow and duplex scan of the lower extremity arteries was performed bilaterally with velocity and waveform anaylsis. Reason For Study: PAIN Ordering Physician: CHELY NOBLES Performed By: Fanny Rosales Measurements and Calculations Right Left TURBINATED BONE GRINDER PSV 108.4 134.4 cm/sec Prox PFA PSV -83.3 -56.2 cm/sec Prox SFA PSV -113.0 100.9 cm/sec Mid SFA PSV -107.0 -92.6 cm/sec Dist SFA PSV -62.0 -63.2 cm/sec Prox Pop A PSV 108.9 106.4 cm/sec Dist KLEVER PSV 118.0 80.5 cm/sec Dist FUNCTIONAL TESTER PSV 110.3 -107.5 cm/sec Jeffery Pedis PSV 138.8 43.1 cm/sec Right Side Arterial Evaluation Normal velocity and triphasic waveforms noted from the Common Femoral artery to the infregeniculate vessels. 0 % stenosis . Ankle Brachial index was declined. Left Side Arterial Evaluation Normal velocity and triphasic waveforms noted in the Common Femoral artery. Biphasic theraafter to the infregeniculate vessels. 0-19 % stenosis . At the Popliteal. Ankle Brachial index was declined. Interpretation Summary No hemodynamically significant lesions in the right lower extremity only, on duplex imaging, at rest. Mild hemodynamically significant lesions in the left lower extremity only, on duplex imaging, at rest. : CHELY NOBLES > Chely Nobles
[2017-09-08] MEDS: MORPHINE SULFATE 10 MG/ML INJ IV PRN (16:16)
[2017-09-08] MEDS: INSULIN DETEMIR 100 UNIT/ML 3 ML PEN SUBCUT SCH (21:20)
[2017-09-09] MEDS: PIPERACILLIN SODIUM/TAZOBACTAM 4.5 GM in NORMAL SALINE 100 ML IV SCH ×2 (00:15→05:45)
[2017-09-09] MEDS: HEPARIN SOD (PORCINE) 5,000 UNIT/ML 1 ML SYRINGE SUBCUT SCH (05:45)
[2017-09-09] MEDS: LANSOPRAZOLE 30 MG TAB.RAP.DR PO SCH (05:45)
[2017-09-09] MEDS: MORPHINE SULFATE 10 MG/ML INJ IV PRN (05:47)
[2017-09-09] MEDS ORDERED: VANCOMYCIN HCL 2,000 MG in NORMAL SALINE 500 ML IV SCH (06:00)
[2017-09-09 06:21] LABS: ANION GAP 13 (5-19); BLOOD UREA NITROGEN 11 mg/dL (7-20); CALCIUM 8.9 mg/dL (8.4-10.2); CARBON DIOXIDE 19 mmol/L (22-30); CHLORIDE 109 mmol/L (98-107); CREATININE RESULT 1.12 mg/dL (0.52-1.25); GLUCOSE 107 mg/dL (75-110); POTASSIUM 4.2 mmol/L (3.6-5.0)
[2017-09-09 06:33] LABS: ABSOLUTE BASOPHILS # (AUTO) 0.1 10^3/uL (0.0-0.2); ABSOLUTE EOSINOPHILS # (AUTO) 0.1 10^3/uL (0.0-0.6); ABSOLUTE LYMPHOCYTES (AUTO) 1.6 10^3/uL (0.5-4.7); ABSOLUTE MONOCYTES (AUTO) 1.2 10^3/uL (0.1-1.4); ABSOLUTE NEUT (AUTO) 11.7 10^3/uL (1.7-8.2); BASOPHILS % (AUTO) 0.5 % (0-2); EOSINOPHILS % (AUTO) 0.4 % (0-6); HEMATOCRIT 25.5 % (36.0-47.0); HEMOGLOBIN 8.4 g/dL (12.0-15.5); HGB HCT DIFFERENCE -0.3; LYMPHOCYTES % (AUTO) 10.9 % (13-45); MEAN CORPUSCULAR HEMOGLOBIN 25.2 pg (27.0-33.4); MEAN CORPUSCULAR HGB CONC 32.8 g/dL (32.0-36.0); MEAN CORPUSCULAR VOLUME 77 fl (80-97); RED BLOOD COUNT 3.32 10^6/uL (3.72-5.28); RED CELL DISTRIBUTION WIDTH 14.4 % (11.5-14.0); SEGMENTED NEUTROPHILS % (AUTO) 80.2 % (42-78); WHITE BLOOD COUNT 14.6 10^3/uL (4.0-10.5)
[2017-09-09 08:31] VITALS: BP 115/46
[2017-09-09] MEDS: FERROUS SULFATE 325 MG TABLET PO SCH (09:54)
[2017-09-09] MEDS: DOCUSATE SODIUM 100 MG CAPSULE PO SCH (09:54)
--- NOTE | 2017-09-09 14:26 | PDOC DISCHARGE SUMMARY ---
General - Admit/Disc Date/PCP Admission Date/Primary Care Provider: 09/06/17 00:55 Discharge Date: 09/09/17 - Discharge Diagnosis (1) Cellulitis of left foot Is this a current diagnosis for this admission?: Yes Summary: Negative cultures (2) Acute renal failure Is this a current diagnosis for this admission?: Yes Summary: Resolved (3) Anemia Is this a current diagnosis for this admission?: Yes (4) Diabetes mellitus type 1.5 Is this a current diagnosis for this admission?: Yes (5) Hypertension Is this a current diagnosis for this admission?: Yes (6) Morbid obesity with BMI of 50.0-59.9, adult Is this a current diagnosis for this admission?: Yes - Additional Information Resuscitation Status: Full Code Discharge Diet: Diabetic Discharge Activity: Activity As Tolerated, Keep Legs Elevated Home Medications: Albuterol Sulfate [Proair HFA Inhalation Aerosol 8.5 gm MDI] 2 puff IH Q4HP PRN 09/06/17 Aspirin [Aspirin EC] 81 mg PO DAILY 09/06/17 Fluticasone/Salmeterol [Advair 500-50 Diskus 28 Dose] 1 puff IH Q12 09/06/17 Insulin Aspart [Novolog Insulin (Aspart) 100 unit/mL] See Protocol SUBCUT MEALS 09/06/17 Insulin Detemir [Levemir Flextouch] 76 units SUBCUT QHS 09/06/17 Lisinopril/Hydrochlorothiazide [Lisinopril-Hctz 20-25 mg Tab] 1 tab PO DAILY Metformin HCl [Glucophage] 850 mg PO BID 09/06/17 Omeprazole 20 mg PO DAILY 09/06/17 Simvastatin [Zocor 40 mg Tablet] 40 mg PO QHS 09/06/17 Amoxicillin/Potassium Clav [Augmentin 875-125 Tablet] 1 each PO BID #20 tablet 09/09/17 Ferrous Sulfate [Feosol 325 mg Tablet] 325 mg PO TID tablet 09/09/17 Nicotine [Nicoderm 7 mg/24 Hr Transdermal Patch] 1 each TD DAILYP PRN patch.td24 09/09/17 Oxycodone HCl/Acetaminophen [Percocet 5-325 mg Tablet] 2 tab PO Q4HP PRN #30 tablet 09/09/17 History of Present Illness History of Present Illness: RUTH WOOD is a 42 year old female with a history of diabetes and hypertension who presented with worsening cellulitis of her left lower leg. Patient reports that 2 days prior to presentation she began having pain in her foot and was having difficulty walking. Patient presented to the emergency room and was given prescription for Keflex. She took several doses but did not have improvement. She returned to the emergency room was found to have a white count of 17,000 and was admitted for cellulitis of the left ankle area. Hospital Course Hospital Course: 42-year-old female with diabetes and hypertension who presented with cellulitis of the left leg. There was initially some concern that she may have sepsis. She however did not have any significant hypotension or tachycardia. Patient was started on broad-spectrum antibiotics of vancomycin and Zosyn. The patient had negative cultures. She clinically showed improvement with less swelling less erythema. Patient still did have some erythema but it was improving. She had an ultrasound done of her leg which was negative for any type of DVT. Decision was made to switch the patient over to p.o. Augmentin and sent home for continued treatment. Physical Exam Vital Signs: Temp Pulse Resp BP Pulse Ox 98.6 F 87 20 115/46 L 97 09/09/17 08:09 09/09/17 08:09 09/09/17 08:09 09/09/17 08:09 09/09/17 08:09 Intake & Output 09/08/17 09/09/17 09/10/17 06:59 06:59 06:59 Intake Total 5768 3720 Output Total 100 Balance 5668 3720 Weight 139.6 kg 139.6 kg General appearance: PRESENT: no acute distress Eye exam: PRESENT: conjunctiva pink. ABSENT: scleral icterus Neck exam: ABSENT: JVD Respiratory exam: PRESENT: clear to auscultation mray. ABSENT: rales, rhonchi, wheezes Cardiovascular exam: PRESENT: RRR. ABSENT: diastolic murmur, rubs, systolic murmur GI/Abdominal exam: PRESENT: normal bowel sounds, soft. ABSENT: distended, guarding, mass, organolmegaly, rebound, tenderness Extremities exam: PRESENT: pedal edema - Trace pedal edema. ABSENT: calf tenderness, clubbing Neurological exam: PRESENT: alert, awake, oriented to person, oriented to place , oriented to time, oriented to situation, CN II-XII grossly intact. ABSENT: motor sensory deficit Psychiatric exam: PRESENT: appropriate affect Skin exam: PRESENT: other - Mild erythema over the left lateral ankle. Improved from yesterday. Results Laboratory Results: 09/09/17 05:53 09/09/17 05:53 09/07/17 09/09/17 09/09/17 04:16 05:53 05:53 WBC 14.6 H RBC 3.32 L Hgb 8.4 L Hct 25.5 L MCV 77 L MCH 25.2 L MCHC 32.8 RDW 14.4 H Plt Count 288 Seg Neutrophils % 80.2 H Lymphocytes % 10.9 L Monocytes % 8.0 Eosinophils % 0.4 Basophils % 0.5 Absolute Neutrophils 11.7 H Absolute Lymphocytes 1.6 Absolute Monocytes 1.2 Absolute Eosinophils 0.1 Absolute Basophils 0.1 Sodium 141.0 Potassium 4.2 Chloride 109 H Carbon Dioxide 19 L Anion Gap 13 BUN 11 Creatinine 1.12 Est GFR ( Amer) > 60 Est GFR (Non-Af Amer) 53 L Glucose 107 Calcium 8.9 Transferrin 210 Impressions: Lower Extremity MRI 09/06/17 00:00 IMPRESSION: DIFFUSE SOFT TISSUE SWELLING, PRIMARILY ALONG THE DORSUM OF THE FOOT. NO ABSCESS. NO EVIDENCE FOR OSTEOMYELITIS. Qualifiers PATEINT BEING DISCHARGED WITH ANY OF THE FOLLOWING DIAGNOSIS?: No Plan Discharge Plan: Patient is discharged home. Follow with primary care in 1-2 weeks. Time Spent: Greater than 30 Minutes
== END 2017-09-09 10:53 | disposition home or self-care (01) | DRG 603 ==
LOC: ER 20:39 → EH 09-06 00:55 → OBSVTOIN 09-06 00:55 → 5 09-06 02:38
PROVIDERS: ADMIT Family Medicine; ATTEND Family Medicine
PROC: 5A09357 Assistance with Respiratory Ventilation, Less than 24 Consecutive Hours, Continuous Positive Airway Pressure (ICD-10-PCS; principal; 2017-09-06)
PROC: 3E0234Z Introduction of Serum, Toxoid and Vaccine into Muscle, Percutaneous Approach (ICD-10-PCS; 2017-09-06)
DX: L03.116 Cellulitis of left lower limb (principal); N17.9 Acute kidney failure, unspecified; Z68.43 Body mass index [BMI] 50.0-59.9, adult; I10 Essential (primary) hypertension; E78.5 Hyperlipidemia, unspecified; E66.01 Morbid (severe) obesity due to excess calories; J45.909 Unspecified asthma, uncomplicated; G47.30 Sleep apnea, unspecified; E11.9 Type 2 diabetes mellitus without complications; F17.210 Nicotine dependence, cigarettes, uncomplicated; D50.8 Other iron deficiency anemias; Z23 Encounter for immunization; Z79.82 Long term (current) use of aspirin; Z79.4 Long term (current) use of insulin; Z79.899 Other long term (current) drug therapy; Z83.3 Family history of diabetes mellitus; Z82.49 Family history of ischemic heart disease and other diseases of the circulatory system
CPT/HCPCS: 36415; 80048; 80053; 80202; 81025; 82565; 82607; 82728; 82746; 82962; 83036; 83540; 83550; 83605; 83735; 84443; 84466; 85025; 85045; 86140; 87040; 90715; 93925; 96361; 96365; 96375; 99283; 99284; J1170; J1644; J1815; J2270; J2405; J2543; J3370; J7030; J7040; J7060; Q0138

== ENCOUNTER 2017-09-11 16:19 | Inpatient (IN) | payer MEDICARE, MEDICAID ==
--- NOTE | 2017-09-11 17:38 | ER Document Report ---
ED Medical Screen (RME) - General Chief Complaint: Foot Pain Stated Complaint: LEFT FOOT PAIN Time Seen by Provider: 09/11/17 17:36 Notes: Patient has pain and swelling of her left foot with a blister on the top of the foot. She was here 1 week ago and admitted to receive IV antibiotics for 3 days. She went home from the hospital 2 days ago. She noted that day that she developed a small blister on the top of her foot now it has enlarged and the whole left foot is swollen and pink and warm and tender. Patient is an insulin-dependent diabetic. TRAVEL OUTSIDE OF THE [place] IN LAST 30 DAYS: No - Related Data Allergies/Adverse Reactions: No Known Allergies Allergy (Verified 09/11/17 16:27) Home Medications: Current Home Medications Dulaglutide [Trulicity] 1.5 mg SQ DAILY 09/11/17 [History] Furosemide 1 tab PO DAILY 09/11/17 [History] Pregabalin [Lyrica 100 mg Capsule] 3 tab PO TID 09/11/17 [History] Past Medical History - Past Medical History Cardiac Medical History: Reports: Hx Hypercholesterolemia, Hx Hypertension Pulmonary Medical History: Reports: Hx Asthma, Hx Sleep Apnea Endocrine Medical History: Reports: Hx Diabetes Mellitus Type 2 Renal/ Medical History: Denies: Hx Peritoneal Dialysis Musculoskeltal Medical History: Reports Hx Musculoskeletal Deformity - Carpal tunnel and heel spurs Past Surgical History: Reports: Hx Section, Hx Orthopedic Surgery, Other - Left eye surgery as a child - Immunizations Immunizations up to date: Yes Hx Diphtheria, Pertussis, Tetanus Vaccination: No History of Influenza Vaccine for 07/2017 - 12/2017 Season: Yes Influenza Administration Date for 07/2017 - 12/2017 Season: 07/19/17 Physical Exam - Vital signs Vitals: Temp Pulse Resp BP Pulse Ox 99.8 F 103 H 24 H 145/80 H 100 09/11/17 16:26 09/11/17 16:26 09/11/17 16:26 09/11/17 16:26 09/11/17 16:26 Course - Vital Signs Vital signs: Temp Pulse Resp BP Pulse Ox 99.8 F 103 H 24 H 145/80 H 100 09/11/17 16:26 09/11/17 16:26 09/11/17 16:26 09/11/17 16:26 09/11/17 16:26
[2017-09-11] MEDS ORDERED: VANCOMYCIN HCL INJ 1000 MG VIAL IV ONE (17:58)
--- NOTE | 2017-09-11 18:03 | ER Document Report ---
ED General - General Chief Complaint: Foot Pain Stated Complaint: LEFT FOOT PAIN Time Seen by Provider: 09/11/17 17:36 Mode of Arrival: Ambulatory Information source: Patient, [facility] Records Notes: 42-year-old female history of diabetes hypertension presents with complaints of left foot pain. Patient notes the area as well and worse. Patient denies any fevers or chills denies any nausea vomiting or diarrhea. Patient states that she was seen here a week and a half ago was initially started on Keflex and discharged home. Patient notes that the next day she came and was admitted for approximately 3 days with IV antibiotics. Patient notes symptoms did improve and have since worsened with a large blister on the left foot TRAVEL OUTSIDE OF THE [place] IN LAST 30 DAYS: No - HPI Onset: Last week Onset/Duration: Persistent, Worse Quality of pain: Achy Severity: Mild Pain Level: 2 Associated symptoms: Leg swelling Exacerbated by: Denies Relieved by: Denies Similar symptoms previously: Yes Recently seen / treated by doctor: Yes - Related Data Allergies/Adverse Reactions: No Known Allergies Allergy (Verified 09/11/17 16:27) Home Medications: Current Home Medications Dulaglutide [Trulicity] 1.5 mg SQ DAILY 09/11/17 [History] Furosemide 1 tab PO DAILY 09/11/17 [History] Pregabalin [Lyrica 100 mg Capsule] 3 tab PO TID 09/11/17 [History] Past Medical History - Social History Smoking Status: Current Some Day Smoker Cigarette use (# per day): Yes Chew tobacco use (# tins/day): No Smoking Education Provided: No Frequency of alcohol use: Occasional Drug Abuse: None Family History: CAD, DM, Hyperlipidemia, Hypertension Patient has suicidal ideation: No Patient has homicidal ideation: No - Past Medical History Cardiac Medical History: Reports: Hx Hypercholesterolemia, Hx Hypertension Pulmonary Medical History: Reports: Hx Asthma, Hx Sleep Apnea Endocrine Medical History: Reports: Hx Diabetes Mellitus Type 2 Renal/ Medical History: Denies: Hx Peritoneal Dialysis Musculoskeltal Medical History: Reports Hx Musculoskeletal Deformity - Carpal tunnel and heel spurs Past Surgical History: Reports: Hx Section, Hx Orthopedic Surgery, Other - Left eye surgery as a child - Immunizations Immunizations up to date: Yes Hx Diphtheria, Pertussis, Tetanus Vaccination: No Review of Systems - Review of Systems Notes: REVIEW OF SYSTEMS: CONSTITUTIONAL : Denies fever, chills, or sweats. Denies recent illness. EENT: Denies eye, ear, throat, or mouth pain or symptoms. Denies nasal or sinus congestion or discharge. Denies throat, tongue, or mouth swelling or difficulty swallowing. CARDIOVASCULAR: Denies chest pain. Denies palpitations or racing or irregular heart beat. Denies ankle edema. RESPIRATORY: Denies cough, cold, or chest congestion. Denies shortness of breath, difficulty breathing, or wheezing. GASTROINTESTINAL: Denies abdominal pain or distention. Denies nausea, vomiting , or diarrhea. Denies blood in vomitus, stools, or per rectum. Denies black, tarry stools. Denies constipation. GENITOURINARY: Denies difficulty urinating, painful urination, burning, frequency, blood in urine, or discharge. FEMALE GENITOURINARY: Denies vaginal bleeding, heavy or abnormal periods, irregular periods. Denies vaginal discharge or odor. MUSCULOSKELETAL: Left foot edema SKIN: Blister on left foot HEMATOLOGIC : Denies easy bruising or bleeding. LYMPHATIC: Denies swollen, enlarged glands. NEUROLOGICAL: Denies confusion or altered mental status. Denies passing out or loss of consciousness. Denies dizziness or lightheadedness. Denies headache. Denies weakness or paralysis or loss of use of either side. Denies problems with gait or speech. Denies sensory loss, numbness, or tingling. Denies seizures. PSYCHIATRIC: Denies anxiety or stress. Denies depression, suicidal ideation, or homicidal ideation. ALL OTHER SYSTEMS REVIEWED AND NEGATIVE. PHYSICAL EXAMINATION: GENERAL: Well-appearing, well-nourished and in no acute distress. HEAD: Atraumatic, normocephalic. EYES: Pupils equal round and reactive to light, extraocular movements intact, conjunctiva are normal. ENT: Nares patent, oropharynx clear without exudates. Moist mucous membranes. NECK: Normal range of motion, supple without lymphadenopathy LUNGS: Breath sounds clear to auscultation bilaterally and equal. No wheezes rales or rhonchi. HEART: Regular rate and rhythm without murmurs ABDOMEN: Soft, nontender, nondistended abdomen. No guarding, no rebound. No masses appreciated. Female : deferred Musculoskeletal: Left lower extremity edema significant +4 NEUROLOGICAL: Cranial nerves grossly intact. Normal speech, normal gait. Normal sensory, motor exams PSYCH: Normal mood, normal affect. SKIN: Blister on left foot Dictation was performed using [employer] voice recognition software Physical Exam - Vital signs Vitals: Temp Pulse Resp BP Pulse Ox 99.8 F 103 H 24 H 145/80 H 100 09/11/17 16:26 09/11/17 16:26 09/11/17 16:26 09/11/17 16:26 09/11/17 16:26 Course - Re-evaluation Re-evalutation: 09/11/17 19:55 Patient will be admitted for further IV antibiotics, hospitalist has been contacted - Vital Signs Vital signs: Temp Pulse Resp BP Pulse Ox 99.8 F 103 H 24 H 145/80 H 100 09/11/17 16:26 09/11/17 16:26 09/11/17 16:26 09/11/17 16:26 09/11/17 16:26 - Laboratory Result Diagrams: 09/11/17 19:17 09/11/17 19:17 Laboratory results interpreted by me: 09/11/17 18:10 Urine Protein 100 H Urine Glucose (UA) >=500 H Urine Ketones 20 H Urine Blood SMALL H Urine Bilirubin SMALL H Urine Urobilinogen 4.0 H Discharge - Discharge Clinical Impression: Left leg cellulitis, Sepsis affecting skin, Morbid obesity with BMI of 50.0- 59.9, adult, Diabetes mellitus type 1.5 Condition: Fair Disposition: ADMITTED INPATIENT Admitting Provider: Hospitalist Unit Admitted: Medical Floor
[2017-09-11 18:28] LABS: APPEARANCE,URINE SLIGHTLY-CLOUDY; BILIRUBIN,URINE SMALL (NEGATIVE); GLUCOSE, URINE >=500 mg/dL (NEGATIVE); KETONES,URINE 20 mg/dL (NEGATIVE); LEUKOCYTE ESTERASE,URINE NEGATIVE (NEGATIVE); NITRITE,URINE NEGATIVE (NEGATIVE); PROTEIN,URINE 100 mg/dL (NEGATIVE); URINE SPECIFIC GRAVITY 1.035
[2017-09-11] MEDS ORDERED: ZOLPIDEM TARTRATE 5 MG TABLET PO PRN (18:49)
[2017-09-11] MEDS ORDERED: ACETAMINOPHEN 325 MG TABLET PO PRN (18:49)
[2017-09-11] MEDS ORDERED: ONDANSETRON HCL INJ/PF 4 MG/2 ML SDV IV PRN (18:49)
--- NOTE | 2017-09-11 18:49 | PDOC H&P ---
History of Present Illness Admission Date/PCP: BRANDI LADD MD Patient complains of: Left foot pain. History of Present Illness: RUTH WOOD is a 42 year old female with underlying diabetes. She was admitted to the hospital on 06 September for left lower extremity cellulitis. She was discharged on 09 September. During her last hospitalization she was treated with IV vancomycin and Zosyn. She was discharged on Augmentin. During her last hospitalization she had lower extremity vascular structures. These were fairly unremarkable, but, there were some abnormalities in the vascular structures of the left leg. The patient had an MRI of the left lower extremity that did not show osteomyelitis or abscess formation. Since the patient was discharged she felt well until yesterday. Yesterday, when she woke up she started to have more pain in her left foot. She also had a small blister on the top of her foot. This has gotten progressively larger. She also feels that the pain is getting progressively worse. She comes into the emergency department due to concern of progressive infection. Past Medical History Cardiac Medical History: Reports: Hyperlipidema, Hypertension Pulmonary Medical History: Reports: Asthma, Sleep Apnea Endocrine Medical History: Reports: Diabetes Mellitus Type 2 Past Surgical History Past Surgical History: Reports: Section, Orthopedic Surgery, Other - Left eye surgery as a child Social History Smoking Status: Current Some Day Smoker Frequency of Alcohol Use: Occasional Hx Recreational Drug Use: No Hx Prescription Drug Abuse: No - Advance Directive Resuscitation Status: Full Code Surrogate healthcare decision maker:: The patient appoints her son, Abhinav Wood to be her surrogate decision maker. His cell phone number is . Family History Family History: CAD, DM, Hyperlipidemia, Hypertension Parental Family History Reviewed: Yes - DM, MGM HI age 74 Children Family History Reviewed: No Sibling(s) Family History Reviewed.: No Medication/Allergy Home Medications: Albuterol Sulfate [Proair HFA Inhalation Aerosol 8.5 gm MDI] 2 puff IH Q4HP PRN 09/06/17 Aspirin [Aspirin EC] 81 mg PO DAILY 09/06/17 Fluticasone/Salmeterol [Advair 500-50 Diskus 28 Dose] 1 puff IH Q12 09/06/17 Insulin Aspart [Novolog Insulin (Aspart) 100 unit/mL] See Protocol SUBCUT MEALS 09/06/17 Insulin Detemir [Levemir Flextouch] 76 units SUBCUT QHS 09/06/17 Lisinopril/Hydrochlorothiazide [Lisinopril-Hctz 20-25 mg Tab] 1 tab PO DAILY Metformin HCl [Glucophage] 850 mg PO BID 09/06/17 Omeprazole 20 mg PO DAILY 09/06/17 Simvastatin [Zocor 40 mg Tablet] 40 mg PO QHS 09/06/17 Amoxicillin/Potassium Clav [Augmentin 875-125 Tablet] 1 each PO BID #20 tablet 09/09/17 Ferrous Sulfate [Feosol 325 mg Tablet] 325 mg PO TID tablet 09/09/17 Oxycodone HCl/Acetaminophen [Percocet 5-325 mg Tablet] 2 tab PO Q4HP PRN #30 tablet 09/09/17 Dulaglutide [Trulicity] 1.5 mg SQ DAILY 09/11/17 Furosemide 1 tab PO DAILY 09/11/17 Pregabalin [Lyrica 100 mg Capsule] 3 tab PO TID 09/11/17 Allergies/Adverse Reactions: No Known Allergies Allergy (Verified 09/11/17 16:27) Review of Systems Constitutional: ABSENT: chills, fever(s), headache(s), weight gain, weight loss Eyes: ABSENT: visual disturbances Ears: ABSENT: hearing changes Nose, Mouth, and Throat: ABSENT: as per HPI, headache(s), mouth pain, sore throat, vertigo, other Breasts: ABSENT: as per HPI, other Cardiovascular: ABSENT: chest pain, dyspnea on exertion, edema, orthropnea, palpitations Respiratory: PRESENT: cough, dyspnea Gastrointestinal: PRESENT: bloating Genitourinary: ABSENT: dysuria, hematuria Musculoskeletal: PRESENT: as per HPI Integumentary: PRESENT: as per HPI Neurological: ABSENT: abnormal gait, abnormal speech, confusion, dizziness, focal weakness, syncope Psychiatric: ABSENT: anxiety, depression, homidical ideation, suicidal ideation Endocrine: ABSENT: cold intolerance, heat intolerance, polydipsia, polyuria Hematologic/Lymphatic: ABSENT: easy bleeding, easy bruising Physical Exam Vital Signs: Temp Pulse Resp BP Pulse Ox 99.8 F 103 H 24 H 145/80 H 100 09/11/17 16:26 09/11/17 16:26 09/11/17 16:26 09/11/17 16:26 09/11/17 16:26 Intake & Output 09/10/17 09/11/17 09/12/17 06:59 06:59 06:59 Weight 136.531 kg Additional comments: The patient is a super morbidly obese black female. She does appear to be uncomfortable due to pain. Her cognition and mentation are normal. Her facial appearance is normal. The lips and mucous membranes are moist. Her teeth are normal. She has good dentition. Her neck is supple with full range of motion. Trachea is midline. Thyroid is nonpalpable. She does not have any cervical or supraclavicular adenopathy noted. Her lungs are clear to auscultation bilaterally. Her cardiac exam is regular without murmurs, gallops or rubs. Abdominal exam is limited due to obesity but appears overall to be benign. The right lower extremities unremarkable. The left lower extremity has a significant amount of edema and erythema starting at approximately 15 cm inferior to the kneecap. Also, there is a large blister on the dorsum of the left foot. Due to pain I am unable to palpate for any pulses, however, the foot is warm. Results Laboratory Results: 09/11/17 18:10 Urine Color ESTRELLA Urine Appearance SLIGHTLY-CLOUDY Urine pH 5.0 Ur Specific [place] 1.035 Urine Protein 100 H Urine Glucose (UA) >=500 H Urine Ketones 20 H Urine Blood SMALL H Urine Nitrite NEGATIVE Ur Leukocyte Esterase NEGATIVE Urine WBC (Auto) 9 Urine RBC (Auto) 9 Assessment & Plan - Diagnosis (1) Left leg cellulitis Is this a current diagnosis for this admission?: Yes Plan: Begin broad-spectrum antibiotics. I will order a stat CT scan of the left leg to look for abscess formation and or evidence of necrotizing fasciitis. If needed surgery will be consulted immediately. (2) Diabetes mellitus type 1.5 Is this a current diagnosis for this admission?: Yes Plan: Metformin will be placed on hold and we will follow the patient with a sliding scale. (3) Morbid obesity with BMI of 50.0-59.9, adult Is this a current diagnosis for this admission?: Yes Plan: Obesity does compromise the patient's health and make her care more difficult. (4) Sepsis affecting skin Is this a current diagnosis for this admission?: Yes Plan: See plan above. (5) Hypertension Qualifiers: Hypertension type: essential hypertension Qualified Code(s): I10 - Essential (primary) hypertension Is this a current diagnosis for this admission?: Yes Plan: I will initiate hydralazine until we can check labs on this patient. For now, lisinopril and Lasix will be held. - Time Time Spent: 30 to 50 Minutes - Inpatient Certification Medical Necessity: Need for IV Antibiotics
[2017-09-11] MEDS ORDERED: DEXTROSE 50%-WATER 25 GM/50 ML DISP.SYRIN IV PRN ×2 (18:56)
[2017-09-11] MEDS ORDERED: GLUCAGON,HUMAN RECOMB 1 MG INJ IM PRN (18:56)
[2017-09-11] MEDS ORDERED: DEXTROSE 40% GEL 15 GM TUBE PO PRN ×2 (18:56)
[2017-09-11] MEDS ORDERED: HYDRALAZINE HCL INJ/PF 20 MG/1 ML SDV IV PRN (18:57)
[2017-09-11] MEDS ORDERED: VANCOMYCIN HCL 0 MG in DEXTROSE 5%-WATER 250 ML IV NR (19:00)
[2017-09-11] MEDS ORDERED: MORPHINE SULFATE 10 MG/ML INJ IV PRN (19:03)
[2017-09-11] MEDS ORDERED: OXYCODONE HCL IR 5 MG TABLET PO PRN (19:03)
[2017-09-11 19:47] LABS: ABSOLUTE BASOPHILS # (AUTO) 0.2 10^3/uL (0.0-0.2); ABSOLUTE EOSINOPHILS # (AUTO) 0.1 10^3/uL (0.0-0.6); ABSOLUTE LYMPHOCYTES (AUTO) 2.6 10^3/uL (0.5-4.7); ABSOLUTE MONOCYTES (AUTO) 1.5 10^3/uL (0.1-1.4); ABSOLUTE NEUT (AUTO) 13.8 10^3/uL (1.7-8.2); EOSINOPHILS % (AUTO) 0.4 % (0-6); HEMATOCRIT 28.1 % (36.0-47.0); HEMOGLOBIN 9.2 g/dL (12.0-15.5); HGB HCT DIFFERENCE -0.5; LYMPHOCYTES % (AUTO) 14.2 % (13-45); MEAN CORPUSCULAR HEMOGLOBIN 25.3 pg (27.0-33.4); MEAN CORPUSCULAR HGB CONC 32.9 g/dL (32.0-36.0); MEAN CORPUSCULAR VOLUME 77 fl (80-97); MONOCYTES % (AUTO) 8.4 % (3-13); RED BLOOD COUNT 3.65 10^6/uL (3.72-5.28); WHITE BLOOD COUNT 18.2 10^3/uL (4.0-10.5)
[2017-09-11 19:56] LABS: PROTHROMBIN TIME 13.8 SEC (11.4-15.4)
[2017-09-11 19:57] LABS: PARTIAL THROMBOPLASTIN TIME 37.6 SEC (23.5-35.8)
[2017-09-11 20:16] LABS: ALANINE AMINOTRANSFERASE 56 U/L (9-52); ALBUMIN 3.1 g/dL (3.5-5.0); ALKALINE PHOSPHATASE 204 U/L (38-126); ANION GAP 14 (5-19); ASPARTATE AMINO TRANSFERASE 58 U/L (14-36); BILIRUBIN,TOTAL 1.3 mg/dL (0.2-1.3); BLOOD UREA NITROGEN 9 mg/dL (7-20); CALCIUM 9.2 mg/dL (8.4-10.2); CARBON DIOXIDE 24 mmol/L (22-30); CHLORIDE 104 mmol/L (98-107); CREATINE KINASE 277 U/L (30-135); CREATININE RESULT 0.98 mg/dL (0.52-1.25); GLUCOSE 163 mg/dL (75-110); MAGNESIUM 1.7 mg/dL (1.6-2.3); POTASSIUM 3.8 mmol/L (3.6-5.0); SODIUM 141.6 mmol/L (137-145); TOTAL PROTEIN 6.6 g/dL (6.3-8.2)
[2017-09-11] MEDS ORDERED: ENOXAPARIN SODIUM INJ 40 MG/0.4 ML DISP.SYRIN SUBCUT ONE (21:00)
[2017-09-11] MEDS ORDERED: PIPERACILLIN SODIUM/TAZOBACTAM 4.5 GM in NORMAL SALINE 100 ML IV SCH (21:00)
--- NOTE | 2017-09-11 21:05 | RADIOLOGY REPORT (SQ) ---
EXAM DESCRIPTION: CT LT LOWER EXTREMITY WITHOUT COMPLETED DATE/TIME: 09/11/2017 8:27 pm REASON FOR STUDY: Severe cellulitis COMPARISON: MRI left foot 09/06/2017 TECHNIQUE: CT scan of the left foot performed without intravenous contrast. Images reviewed with so ft tissue and bone windows. Reconstructed coronal and sagittal MPR images reviewed. All images stor ed on PACS. All CT scanners at this facility use dose modulation, iterative reconstruction, and/or weight based d osing when appropriate to reduce radiation dose to as low as reasonably achievable (ALARA). [facility]: Dose Right [facility]: CareDose [facility]: Dose Right [facility]: Teradose 4D [facility]: Smart SavvyCard RADIATION DOSE: CT Rad equipment meets quality standard of care and radiation dose reduction techniq ues were employed. CTDIvol: 4.1 mGy. DLP: 179 mGy-cm. mGy. LIMITATIONS: None. FINDINGS: There is diffuse skin thickening and subcutaneous edema throughout the left foot and ankle soft tissues. No well circumscribed fluid pocket worrisome for abscess. Bone windows demonstrate no fracture. No aggressive bony demineralization worrisome for osteomyeliti s. IMPRESSION: Diffuse left foot and left ankle cellulitis TECHNICAL DOCUMENTATION: JOB ID: [id number] Quality ID # [id number]: Final reports with documentation of one or more dose reduction techniques (e.g., Au tomated exposure control, adjustment of the mA and/or kV according to patient size, use of iterative reconstruction technique) 2010 [employer]- All Rights Reserved
[2017-09-11] MEDS ORDERED: PREGABALIN 100 MG CAPSULE PO SCH ×2 (22:00)
[2017-09-11] MEDS ORDERED: LISINOPRIL 10 MG TABLET PO ONE (22:30)
[2017-09-11] MEDS ORDERED: HYDROCHLOROTHIAZIDE 25 MG TABLET PO ONE (22:30)
[2017-09-11] MEDS: SIMVASTATIN 40 MG TABLET PO SCH (23:25)
[2017-09-11] MEDS: FAMOTIDINE 20 MG TABLET PO SCH (23:26)
[2017-09-11] MEDS: PREGABALIN 75 MG CAPSULE PO SCH (23:29)
[2017-09-12] MEDS ORDERED: INSULIN DETEMIR 100 UNIT/ML 3 ML PEN SUBCUT ONE (00:35)
[2017-09-12] MEDS: FLUTICASONE/SALMETEROL DISKUS 500-50 MCG/DOSE IH SCH ×3 (00:43→21:22)
[2017-09-12] MEDS: INSULIN DETEMIR 100 UNIT/ML 3 ML PEN SUBCUT SCH ×2 (01:21→21:18)
[2017-09-12] MEDS: 1/2 NORMAL SALINE 1,000 ML IV PRN ×2 (01:23→17:40)
[2017-09-12] MEDS: VANCOMYCIN HCL 1,500 MG in DEXTROSE 5%-WATER 250 ML IV SCH ×3 (02:16→21:21)
[2017-09-12] MEDS ORDERED: PREGABALIN 75 MG CAPSULE PO SCH (06:00)
[2017-09-12] MEDS: PIPERACILLIN SODIUM/TAZOBACTAM 4.5 GM in NORMAL SALINE 100 ML IV SCH ×4 (06:08→23:32)
[2017-09-12] MEDS: PREGABALIN 75 MG CAPSULE PO SCH ×3 (06:18→21:12)
[2017-09-12 06:45] LABS: ABSOLUTE BASOPHILS # (AUTO) 0.2 10^3/uL (0.0-0.2); ABSOLUTE EOSINOPHILS # (AUTO) 0.2 10^3/uL (0.0-0.6); ABSOLUTE MONOCYTES (AUTO) 1.6 10^3/uL (0.1-1.4); ABSOLUTE NEUT (AUTO) 11.4 10^3/uL (1.7-8.2); EOSINOPHILS % (AUTO) 1.3 % (0-6); HEMATOCRIT 27.3 % (36.0-47.0); HEMOGLOBIN 9.1 g/dL (12.0-15.5); LYMPHOCYTES % (AUTO) 18.1 % (13-45); MEAN CORPUSCULAR HEMOGLOBIN 25.6 pg (27.0-33.4); MEAN CORPUSCULAR HGB CONC 33.3 g/dL (32.0-36.0); MEAN CORPUSCULAR VOLUME 77 fl (80-97); RED BLOOD COUNT 3.55 10^6/uL (3.72-5.28); RED CELL DISTRIBUTION WIDTH 14.6 % (11.5-14.0); SEGMENTED NEUTROPHILS % (AUTO) 69.6 % (42-78); WHITE BLOOD COUNT 16.4 10^3/uL (4.0-10.5)
[2017-09-12 07:21] LABS: ANION GAP 15 (5-19); BLOOD UREA NITROGEN 11 mg/dL (7-20); CALCIUM 8.7 mg/dL (8.4-10.2); CARBON DIOXIDE 22 mmol/L (22-30); CHLORIDE 105 mmol/L (98-107); CREATININE RESULT 1.04 mg/dL (0.52-1.25); GLUCOSE 190 mg/dL (75-110); MAGNESIUM 1.9 mg/dL (1.6-2.3); POTASSIUM 3.8 mmol/L (3.6-5.0); SODIUM 141.6 mmol/L (137-145)
[2017-09-12] MEDS ORDERED: MORPHINE SULFATE 10 MG/ML INJ IV PRN (10:10)
[2017-09-12] MEDS ORDERED: MEPERIDINE HCL/PF INJ 25 MG/1 ML DISP.SYRIN IV PRN (10:10)
[2017-09-12] MEDS ORDERED: PROMETHAZINE HCL INJ 25 MG/1 ML VIAL IV PRN ×2 (10:10)
[2017-09-12] MEDS ORDERED: ONDANSETRON HCL INJ/PF 4 MG/2 ML SDV IV PRN (10:10)
[2017-09-12] MEDS ORDERED: DIPHENHYDRAMINE HCL 50 MG/ML VIAL IV PRN (10:10)
[2017-09-12] MEDS ORDERED: FENTANYL CITRATE INJ/PF 100 MCG/2 ML AMPUL IV PRN ×3 (10:10)
[2017-09-12] MEDS: INSULIN LISPRO 100 UNIT/ML 3 ML VIAL SUBCUT PRN ×3 (10:17→22:46)
[2017-09-12] MEDS ORDERED: PROPOFOL INJ 200 MG/20 ML VIAL IV ONE (10:20)
[2017-09-12] MEDS ORDERED: KETAMINE HCL INJ 500 MG/10 ML VIAL ONE (10:20)
[2017-09-12] MEDS ORDERED: FENTANYL CITRATE INJ/PF 100 MCG/2 ML AMPUL ONE (10:20)
[2017-09-12] MEDS ORDERED: MIDAZOLAM 2 MG/2 ML INJ ONE (10:20)
[2017-09-12] MEDS ORDERED: IBUPROFEN INJ 800 MG/8 ML VIAL IV ONE (10:21)
[2017-09-12] MEDS ORDERED: ACETAMINOPHEN 100 ML IV ONE (10:21)
[2017-09-12] MEDS: FAMOTIDINE 20 MG TABLET PO SCH ×2 (10:23→21:12)
[2017-09-12] MEDS: FERROUS SULFATE 325 MG TABLET PO SCH ×3 (10:23→17:39)
[2017-09-12] MEDS: LISINOPRIL 10 MG TABLET PO SCH (10:23)
[2017-09-12] MEDS: HYDROCHLOROTHIAZIDE 25 MG TABLET PO SCH (10:23)
[2017-09-12] MEDS: ASPIRIN 81 MG TABLET, ENT COATED PO SCH (10:23)
[2017-09-12] MEDS: ENOXAPARIN SODIUM INJ 40 MG/0.4 ML DISP.SYRIN SUBCUT SCH (10:23)
[2017-09-12] MEDS ORDERED: LIDOCAINE 1%/EPINEPHRINE INJ 20 ML VIAL ONE (11:11)
--- NOTE | 2017-09-12 14:16 | PDOC PROGRESS REPORT ---
Subjective Progress Note for:: 09/12/17 Subjective:: The patient is a 42-year-old female with underlying diabetes. She was hospitalized from 09/06 through 09/09/2017 for cellulitis. Unfortunately, the swelling and erythema recurred in the left foot and she developed a blister on the dorsum of the left foot. Therefore, last night she was readmitted for cellulitis. She did have a CT scan of the lower extremity that did not demonstrate abscess formation. MRI was performed last week that was negative for osteomyelitis. Surgery was consulted. They took the patient to the operating room today for debridement. They feel that the foot is compromised by poor vascular circulation. In addition, the patient had a significant amount of necrotic tissue that required debridement. Therefore, the plan will be to treat the patient with intravenous antibiotics. She will need additional debridements, but, in the next few days she will need to be transferred to a facility where vascular surgery support is available. She will need an angiogram and she may require some type of revascularization procedure to the left leg. She is at increased risk for requiring an amputation. Today, the patient feels improved. However, she notes this is likely from receiving pain medication. Physical Exam Vital Signs: Temp Pulse Resp BP Pulse Ox 98.5 F 83 20 118/90 H 98 09/12/17 10:10 09/12/17 10:10 09/12/17 10:10 09/12/17 10:10 09/12/17 10:10 Intake & Output 09/11/17 09/12/17 09/13/17 06:59 06:59 06:59 Intake Total 420 740 Output Total 400 240 Balance 20 500 Weight 141.3 kg Additional comments: The patient is a morbidly obese black female. She is not in any distress. Her cognition and mentation are appropriate. Her facial appearance is normal. She has good dentition. Her lungs are clear to auscultation bilaterally. Her cardiac exam is regular without murmurs, gallops or rubs. The abdomen is obese but soft. Bowel sounds are present. She does not have guarding or rebound noted. The right lower extremity is unremarkable. The foot is warm to touch. The left lower extremity actually does not look any improved from yesterday. There is a significant amount of edema approximately 3+ from the kneecap down. The erythema is the same. The blister on the dorsum of the foot is worse. I saw the patient this morning before she left to go to the operating room. In the afternoon, the patient's foot was wrapped in a surgical bandage. Results Laboratory Results: 09/12/17 06:36 09/12/17 05:58 09/11/17 09/11/17 09/11/17 19:17 19:17 19:17 WBC 18.2 H RBC 3.65 L Hgb 9.2 L Hct 28.1 L MCV 77 L MCH 25.3 L MCHC 32.9 RDW 15.0 H Plt Count 401 Seg Neutrophils % 76.0 Lymphocytes % 14.2 Monocytes % 8.4 Eosinophils % 0.4 Basophils % 1.0 Absolute Neutrophils 13.8 H Absolute Lymphocytes 2.6 Absolute Monocytes 1.5 H Absolute Eosinophils 0.1 Absolute Basophils 0.2 Sodium 141.6 Cancelled Potassium 3.8 Cancelled Chloride 104 Cancelled Carbon Dioxide 24 Cancelled Anion Gap 14 Cancelled BUN 9 Cancelled Creatinine 0.98 Cancelled Est GFR ( Amer) > 60 Cancelled Est GFR (Non-Af Amer) > 60 Cancelled Glucose 163 H Cancelled Calcium 9.2 Cancelled Magnesium 1.7 Total Bilirubin 1.3 Cancelled AST 58 H Cancelled ALT 56 H Cancelled Alkaline Phosphatase 204 H Cancelled Total Protein 6.6 Cancelled Albumin 3.1 L Cancelled 09/12/17 09/12/17 05:58 06:36 WBC 16.4 H RBC 3.55 L Hgb 9.1 L Hct 27.3 L MCV 77 L MCH 25.6 L MCHC 33.3 RDW 14.6 H Plt Count 400 Seg Neutrophils % 69.6 Lymphocytes % 18.1 Monocytes % 10.0 Eosinophils % 1.3 Basophils % 1.0 Absolute Neutrophils 11.4 H Absolute Lymphocytes 3.0 Absolute Monocytes 1.6 H Absolute Eosinophils 0.2 Absolute Basophils 0.2 Sodium 141.6 Potassium 3.8 Chloride 105 Carbon Dioxide 22 Anion Gap 15 BUN 11 Creatinine 1.04 Est GFR ( Amer) > 60 Est GFR (Non-Af Amer) 58 L Glucose 190 H Calcium 8.7 Magnesium 1.9 Total Bilirubin AST ALT Alkaline Phosphatase Total Protein Albumin 09/11/17 19:17 Creatine Kinase 277 H Impressions: Lower Extremity CT 09/11/17 00:00 IMPRESSION: Diffuse left foot and left ankle cellulitis Assessment & Plan - Diagnosis (1) Left leg cellulitis Is this a current diagnosis for this admission?: Yes Plan: Continue vancomycin and Zosyn. Cultures are pending. Wound cultures was obtained in the operating room today and are pending. (2) Diabetes mellitus type 1.5 Is this a current diagnosis for this admission?: Yes Plan: Metformin will be placed on hold and we will follow the patient with a sliding scale. We anticipate that the patient will be receiving IV contrast and therefore I would not use metformin during this hospitalization. We will continue the patient's basal insulin. (3) Morbid obesity with BMI of 50.0-59.9, adult Is this a current diagnosis for this admission?: Yes Plan: Obesity does compromise the patient's health and make her care more difficult. Currently, she is on a carbohydrate controlled diet. (4) Sepsis affecting skin Is this a current diagnosis for this admission?: Yes Plan: See plan above. (5) Hypertension Qualifiers: Hypertension type: essential hypertension Qualified Code(s): I10 - Essential (primary) hypertension Is this a current diagnosis for this admission?: Yes Plan: Rarely, the patient is receiving scheduled lisinopril. Her Lasix and hydrochlorothiazide were held. She is receiving pain medications and her blood pressure is in the normal range at present. She also has hydralazine for breakthrough elevations of blood pressure. (6) Peripheral vascular disease Is this a current diagnosis for this admission?: Yes Plan: See subjective above. The plan will be to transfer the patient to a facility with vascular surgery capabilities. It would not be appropriate to transfer her at the present time as the foot is still too infected. The patient and her family would request the transfer be made to [facility] in [place]. - Time Time Spent with patient: 25-34 minutes - Inpatient Certification Medical Necessity: Need Close Monitoring Due to Risk of Patient Decompensation, Need for Pain Control, Need for IV Antibiotics, Risk of Complication if Not Cared For in Hospital
[2017-09-12] MEDS: OXYCODONE-ACETAMINOPHEN 5-325 MG TABLET PO PRN (16:58)
--- NOTE | 2017-09-12 17:31 | CONSULTATION REPORT E ---
Consultation Report NAME: RUTH WOOD : 1975 AGE: 42Y DATE: 09/12/2017 426 B TO: LAURYN MO M.D. FROM:Hodspitalist Requesting Physician HISTORY OF PRESENT ILLNESS: A 42-year-old female patient, consultation from the hospitalist for evaluation and management of a left foot blister, left foot cellulitis area. Patient was admitted in our hospital a few days ago and cellulitis, and patient was discharged home after treating with IV antibiotics. She had an MRI, ruled out osteomyelitis, ruled out any bony abnormalities, and then she gives history of leg swelling on and off. Patient also had a vascular workup, apparently the Doppler study negative for DVT, and then the MRI revealed no abscess, no osteomyelitis. Patient is morbidly obese. Denies any insect bites. Patient smokes on and off. PAST MEDICAL PROBLEMS: 1. Morbid obesity. 2. Hypertension. 3. Diabetes. 4. Hyperlipidemia. SURGICAL HISTORY: No lower extremity surgeries. REVIEW OF SYSTEMS: As per examination. PHYSICAL EXAMINATION: GENERAL: This is a 42-year-old female patient, not in any distress, afebrile. VITAL SIGNS: Afebrile. HEAD AND NECK EXAMINATION: No lymphadenopathy. No masses. CHEST EXAMINATION: Both lungs are clear to auscultation. CARDIOVASCULAR EXAMINATION: Both sounds regular. No murmurs or gallops. ABDOMINAL EXAMINATION: Soft, nontender. No mass palpable. EXTREMITIES: Warm. In the left lower extremity from the lower leg up to the foot, there is a significant amount of swelling, and there is some degree of left not as warm as compared to the right foot. There is a blister on the dorsum of the left foot, more than likely to be ischemic blister. IMPRESSION OVERALL: Ischemic blister, possible left foot vascular disease. PLAN: Because of ischemic blister will debride this today, but the further plan I discussed with the patient's hospitalist, , to refer her to Vascular Surgery as soon as possible. will request vascular surgery evaluation and intervention in the future. The same thing I explained to the patient and patient's family. DICTATING PHYSICIAN: LAURYN MO M.D. [id number] PHY#: [id number] ID: [id number] JOB#: [id number] ACCT: [id number] cc:LAURYN MO M.D. > [employer]
--- NOTE | 2017-09-12 17:54 | OPERATIVE REPORT E ---
Operative Report NAME: RUTH OWOD : 1975 AGE: 42Y DATE OF SURGERY: ROOM: 426 PREOPERATIVE DIAGNOSIS: LEFT FOOT CELLULITIS/BLISTER. POSTOPERATIVE DIAGNOSIS: LEFT FOOT NECROTIC SOFT TISSUE INFECTION UP TO THE FASCIAL LEVEL BETWEEN THE 1ST AND 2ND TOES, EXTENDING FROM DORSAL TO THE PLANTAR ASPECT OF THE FOOT. OPERATION: Exam under anesthesia and incision and drainage of abscess along with excisional sharp debridement of all the necrotic soft tissue up to the fascial level. SURGEON: LAURYN MO M.D. ANESTHESIA: Monitored anesthesia care, 1% lidocaine. BLOOD LOSS: Less than 20 mL. SPECIMENS: Pus for culture and sensitivity and necrotic tissue for cultures and pathology. HISTORY AND INDICATIONS: Morbidly obese diabetic patient who was admitted to the medical service a few days ago. He was evaluated for cellulitis and osteomyelitis. He had MRI scan done indicating that no bone infections and was sent home with and oral antibiotic, readmitted with recurrent cellulitis and a surgical consult called in. Upon examination, he had a blister on the dorsum of the left foot that needed debriding. The patient and the patient's family explained about indications for the operation, risks, benefits and complications including, but not limited to, possibility of reinfections, possibility of need for multiple operations, possibility of poor wound healing, possibility of leg loss, limb loss because of his diabetes status and the poor vascularity, all thoroughly explained. He was taken to the operating room with informed consent. PROCEDURE: After anesthesia was given, in supine position, the left lower extremity was cleaned and draped as a sterile field. Examination confirmed also a purulent blister, and upon entering the subcutaneous planes, the necrotic tissue was extended up all the way to the fascial/tendinous levels starting from dorsal to the plantar aspect of the foot including around tendons. All the necrotic soft tissue was debrided up to the fascial level all around after draining the pus. All the necrotic soft tissue was debrided all around up to the plantar to the dorsum of the foot until viable healthy tissue was seen all around. The fascia was opened. No extension of the abscess was seen anymore. After that, complete hemostasis secured. The wound was thoroughly irrigated and suctioned out. reexamination, I have a high suspicion that he may have an extension of the necrosis due to his poor vascularity, diabetes and vascular disease. For all these reasons, he will need multiple operations, high risk for limb loss. All this thoroughly again explained to the patient. Close monitoring. IV antibiotic. DICTATING PHYSICIAN: LAURYN MO M.D. [id number] PHY#: [id number] ID: [id number] JOB#: [id number] ACCT: [id number] cc:LAURYN MO M.D. > [facility]
[2017-09-12] MEDS: SIMVASTATIN 40 MG TABLET PO SCH (21:12)
[2017-09-13] MEDS: HYDROMORPHONE HCL INJ/PF 2 MG/ML AMPULE IV PRN ×5 (00:27→21:47)
[2017-09-13] MEDS: PIPERACILLIN SODIUM/TAZOBACTAM 4.5 GM in NORMAL SALINE 100 ML IV SCH (05:30)
[2017-09-13] MEDS: PREGABALIN 75 MG CAPSULE PO SCH ×3 (05:30→21:47)
[2017-09-13 09:22] LABS: HEMATOCRIT 27.3 % (36.0-47.0); HEMOGLOBIN 9.1 g/dL (12.0-15.5); MEAN CORPUSCULAR HEMOGLOBIN 25.9 pg (27.0-33.4); MEAN CORPUSCULAR HGB CONC 33.4 g/dL (32.0-36.0); MEAN CORPUSCULAR VOLUME 77 fl (80-97); RED BLOOD COUNT 3.52 10^6/uL (3.72-5.28); RED CELL DISTRIBUTION WIDTH 14.9 % (11.5-14.0)
[2017-09-13 10:26] LABS: ANION GAP 18 (5-19); BLOOD UREA NITROGEN 21 mg/dL (7-20); CALCIUM 8.8 mg/dL (8.4-10.2); CARBON DIOXIDE 21 mmol/L (22-30); CHLORIDE 102 mmol/L (98-107); CREATININE RESULT 2.83 mg/dL (0.52-1.25); GLUCOSE 119 mg/dL (75-110); POTASSIUM 4.3 mmol/L (3.6-5.0); SODIUM 140.6 mmol/L (137-145)
[2017-09-13] MEDS: HYDROCHLOROTHIAZIDE 25 MG TABLET PO SCH (10:28)
[2017-09-13] MEDS: FLUTICASONE/SALMETEROL DISKUS 500-50 MCG/DOSE IH SCH ×2 (10:28→21:52)
[2017-09-13] MEDS: ENOXAPARIN SODIUM INJ 40 MG/0.4 ML DISP.SYRIN SUBCUT SCH (10:28)
[2017-09-13] MEDS: FAMOTIDINE 20 MG TABLET PO SCH ×2 (10:28→21:46)
[2017-09-13] MEDS: LISINOPRIL 10 MG TABLET PO SCH (10:28)
[2017-09-13] MEDS: ASPIRIN 81 MG TABLET, ENT COATED PO SCH (10:28)
[2017-09-13] MEDS: FERROUS SULFATE 325 MG TABLET PO SCH ×3 (10:28→17:18)
[2017-09-13] MEDS: 1/2 NORMAL SALINE 1,000 ML IV PRN (10:32)
[2017-09-13] MEDS: VANCOMYCIN HCL 1,500 MG in DEXTROSE 5%-WATER 250 ML IV SCH (10:32)
[2017-09-13] MEDS ORDERED: MORPHINE SULFATE 10 MG/ML INJ ONE (11:40)
[2017-09-13] MEDS ORDERED: ONDANSETRON HCL INJ/PF 4 MG/2 ML SDV ONE (11:40)
[2017-09-13] MEDS ORDERED: MIDAZOLAM 2 MG/2 ML INJ ONE (11:40)
[2017-09-13] MEDS ORDERED: DEXAMETHASONE SOD PHOSPHATE INJ 4 MG/1 ML VIAL ONE (11:40)
[2017-09-13] MEDS ORDERED: FENTANYL CITRATE INJ/PF 100 MCG/2 ML AMPUL ONE ×2 (11:40→13:01)
[2017-09-13] MEDS ORDERED: PROPOFOL INJ 200 MG/20 ML VIAL IV ONE (11:40)
[2017-09-13] MEDS ORDERED: PIPERACILLIN SODIUM/TAZOBACTAM 3.375 GM in NORMAL SALINE 100 ML IV SCH (12:00)
[2017-09-13] MEDS ORDERED: PROMETHAZINE HCL INJ 25 MG/1 ML VIAL IV PRN ×2 (12:23)
[2017-09-13] MEDS ORDERED: OXYCODONE-ACETAMINOPHEN 5-325 MG TABLET PO PRN ×2 (12:23)
[2017-09-13] MEDS ORDERED: DIPHENHYDRAMINE HCL 50 MG/ML VIAL IV PRN (12:23)
[2017-09-13] MEDS ORDERED: FENTANYL CITRATE INJ/PF 100 MCG/2 ML AMPUL IV PRN ×3 (12:23)
[2017-09-13] MEDS ORDERED: MORPHINE SULFATE 10 MG/ML INJ IV PRN (12:23)
[2017-09-13] MEDS ORDERED: MEPERIDINE HCL/PF INJ 25 MG/1 ML DISP.SYRIN IV PRN (12:23)
[2017-09-13] MEDS ORDERED: OXYCODONE-ACETAMINOPHEN 5-325 MG TABLET ONE (13:02)
[2017-09-13] MEDS ORDERED: DIPHENHYDRAMINE HCL 50 MG/ML VIAL ONE (13:15)
[2017-09-13] MEDS ORDERED: SUCCINYLCHOLINE CHLORIDE INJ 200 MG/10 ML VIAL ONE (13:18)
[2017-09-13] MEDS ORDERED: HYDROMORPHONE HCL INJ/PF 2 MG/ML AMPULE ONE (13:21)
--- NOTE | 2017-09-13 14:13 | PDOC PROGRESS REPORT ---
Subjective Progress Note for:: 09/13/17 Subjective:: The patient is a 42-year-old female with underlying diabetes. She was hospitalized from 09/06 through 09/09/2017 for cellulitis. Unfortunately, the swelling and erythema recurred in the left foot and she developed a blister on the dorsum of the left foot. Therefore, on 09/11/17 she was readmitted for cellulitis. She did have a CT scan of the lower extremity that did not demonstrate abscess formation. MRI was performed last week that was negative for osteomyelitis. Surgery was consulted. They took the patient to the operating room 09/12/17 for debridement and again on 09/13/17 for debridement. She was found to have significant infection and necrosis. The surgeon, Dr. Whipple feels that the foot is compromised by poor vascular circulation. Therefore, the plan will be to treat the patient with intravenous antibiotics. She may need additional debridements, but, in the next few days she will need to be transferred to a facility where vascular surgery support is available. She will need an angiogram and she may require some type of revascularization procedure to the left leg. She is at increased risk for requiring an amputation. Today, the patient feels improved. The edema in the left leg has improved substantially. Physical Exam Vital Signs: Temp Pulse Resp BP Pulse Ox 98.5 F 76 19 121/47 L 98 09/13/17 09:57 09/13/17 09:57 09/13/17 09:57 09/13/17 09:57 09/13/17 09:57 Intake & Output 09/12/17 09/13/17 09/14/17 06:59 06:59 06:59 Intake Total 420 2792 876 Output Total 400 645 525 Balance 20 2147 351 Weight 141.3 kg 142.3 kg Additional comments: The patient appears to be nontoxic and in no distress. Her mentation and cognition are normal. Her facial appearance is normal. Her dentition is very good. Her lungs are clear to auscultation bilaterally. Her cardiac exam is regular without murmurs, gallops or rubs. The abdomen is obese but soft and flat. Bowel sounds are present. The right lower extremity is unremarkable with the exception of obesity and some darkening of the skin consistent with peripheral vascular disease. The swelling in the left lower extremity is dramatically improved. The patient has a surgical bandage on the foot. Results Laboratory Results: 09/13/17 09:07 09/13/17 09:40 09/13/17 09/13/17 09/13/17 09:07 09:07 09:40 WBC 16.0 H RBC 3.52 L Hgb 9.1 L Hct 27.3 L MCV 77 L MCH 25.9 L MCHC 33.4 RDW 14.9 H Plt Count 495 H Sodium Cancelled 140.6 Potassium Cancelled 4.3 Chloride Cancelled 102 Carbon Dioxide Cancelled 21 L Anion Gap Cancelled 18 BUN Cancelled 21 H Creatinine Cancelled 2.83 H Est GFR ( Amer) Cancelled 22 L Est GFR (Non-Af Amer) Cancelled 18 L Glucose Cancelled 119 H Calcium Cancelled 8.8 09/11/17 19:17 Creatine Kinase 277 H Impressions: Lower Extremity CT 09/11/17 00:00 IMPRESSION: Diffuse left foot and left ankle cellulitis Assessment & Plan - Diagnosis (1) Left leg cellulitis Is this a current diagnosis for this admission?: Yes Plan: Continue vancomycin and Zosyn. Cultures remain negative. Wound cultures are also negative at this point. (2) Diabetes mellitus type 1.5 Is this a current diagnosis for this admission?: Yes Plan: Metformin will be placed on hold and we will follow the patient with a sliding scale. We anticipate that the patient will be receiving IV contrast and therefore I would not use metformin during this hospitalization. Patient is now in renal failure and metformin is not appropriate. We will continue the patient's basal insulin. (3) Morbid obesity with BMI of 50.0-59.9, adult Is this a current diagnosis for this admission?: Yes Plan: Obesity does compromise the patient's health and make her care more difficult. Currently, she is on a carbohydrate controlled diet. (4) Sepsis affecting skin Is this a current diagnosis for this admission?: Yes Plan: See plan above. (5) Hypertension Qualifiers: Hypertension type: essential hypertension Qualified Code(s): I10 - Essential (primary) hypertension Is this a current diagnosis for this admission?: Yes Plan: The patient was receiving scheduled lisinopril. This will be held today due to increase in creatinine overnight. Her Lasix and hydrochlorothiazide were held on admission. She is receiving pain medications and her blood pressure is in the normal range at present. She also has hydralazine for breakthrough elevations of blood pressure. (6) Peripheral vascular disease Is this a current diagnosis for this admission?: Yes Plan: See subjective above. The plan will be to transfer the patient to a facility with vascular surgery capabilities. Per my discussion with Dr. Whipple, it would not be appropriate to transfer her at the present time as the foot is still too infected. The patient and her family would request the transfer be made to [facility] in [place]. (7) Guillain Velazquez syndrome Is this a current diagnosis for this admission?: No Plan: The patient carries a past medical history of Guillain Velazquez syndrome. The patient was last treated with IVIG in 2011. We need to monitor closely for recurrence. (8) Acute renal failure Qualifiers: Acute renal failure type: unspecified Qualified Code(s): N17.9 - Acute kidney failure, unspecified Is this a current diagnosis for this admission?: Yes Plan: The patient has developed a significant increase in her creatinine overnight. Therefore, I will discontinue lisinopril. The patient will be on intravenous fluids for hydration. We need to ensure that she does not receive intravenous contrast or other nephrotoxins. We will also need to re-dose her antibiotics. Labs will need to be followed closely. - Time Time Spent with patient: 25-34 minutes - Inpatient Certification Medical Necessity: Need for Pain Control, Need for IV Antibiotics, Need for Surgery
--- NOTE | 2017-09-13 16:09 | RADIOLOGY REPORT (SQ) ---
EXAM DESCRIPTION: [employer] COMPLETED DATE/TIME: 09/13/2017 3:56 pm REASON FOR STUDY: Acute renal failure COMPARISON: None. TECHNIQUE: Dynamic and static grayscale images acquired of the kidneys and bladder and recorded on P ACS. Additional selected color Doppler and spectral images recorded. LIMITATIONS: Large patient. Bladder decompressed, not well seen FINDINGS: RIGHT KIDNEY: 10.5 cm in length. No gross masses stones or hydronephrosis. LEFT KIDNEY: 10.5 cm in length. Very difficult to visualize. No gross hydronephrosis. BLADDER: Decompressed, not well seen OTHER FINDINGS: No other significant finding. IMPRESSION: Limited due to body habitus. No hydronephrosis TECHNICAL DOCUMENTATION: JOB ID: [id number] [employer]- All Rights Reserved
[2017-09-13] MEDS: RINGERS SOLUTION,LACTATED 1,000 ML IV PRN (16:26)
[2017-09-13 16:30] LABS: ANION GAP 15 (5-19); BLOOD UREA NITROGEN 21 mg/dL (7-20); CALCIUM 8.2 mg/dL (8.4-10.2); CARBON DIOXIDE 20 mmol/L (22-30); CHLORIDE 102 mmol/L (98-107); CREATININE RESULT 3.04 mg/dL (0.52-1.25); GLUCOSE 160 mg/dL (75-110); POTASSIUM 4.1 mmol/L (3.6-5.0); SODIUM 137.2 mmol/L (137-145)
[2017-09-13] MEDS: INSULIN LISPRO 100 UNIT/ML 3 ML VIAL SUBCUT PRN ×2 (16:31→21:52)
--- NOTE | 2017-09-13 16:33 | OPERATIVE REPORT E ---
Operative Report NAME: RUTH WOOD : 1975 AGE: 42Y DATE OF SURGERY: 09/13/2017 ROOM: 426 PREOPERATIVE DIAGNOSIS: A 42-year-old female patient taken to the operating room today for gangrene of the left forefoot. POSTOPERATIVE DIAGNOSIS: Gangrenous necrotic process involving first, second, third and fourth toes involving the soft tissue necrosis with extending up OPERATION: Left foot transmetatarsal amputation of the left foot along with extensive debridement of all the soft tissue related to this area up to mid part of the left foot along with a transmetatarsal amputation of the four toes. SURGEON: LAURYN MO M.D. ANESTHESIA: General. BLOOD LOSS: Less than 50 mL. SPECIMENS: Resected toes and metatarsal heads for cultures and pathology. HISTORY AND INDICATIONS: The patient is a diabetic, morbidly obese. The patient had a history of recurrent cellulitis to the left foot requiring admission. This time admitted and I was consulted. Initially he had an abscess on the forefoot which was drained by me yesterday. It was going up to the plantar aspect of the necrosis debrided, highly suspicious for extension of the necrotic tissue, possible involvement of all the toes. Per the patient, I took her to the operating room with a plan to return to the operating room today. Basically I explained to the patient about a possibility height, possibility of limb loss, entire limb loss, and possibility of lab tests, the patient completely understood and agreed with the plan and management. DESCRIPTION OF PROCEDURE: Under general anesthesia, the left lower extremity cleaned and draped to a sterile field. Examination of open wound confirmed that gangrenous and necrotic pus going up to the periosteum of the first metatarsal bone and extending up to the second, third and fourth toes upon careful examination with extension of the injection one-by-one toes. After excisional debridement of all the soft tissue necrosis extending up to all of the 4 toes up to the metatarsal area, necks of the metatarsal bones--first, second, third and fourth were resected by using a bone cutter and then surrounding soft tissue was completely debrided. The remaining fifth toe was looking viable after the proximal wound was absolutely cleaned. At this point, it had a good vascularity. The wound was copiously irrigated and suctioned out. Complete hemostasis. Dressings were applied. The patient will need reevaluation in about 2-3 days along with hopefully stump closure quickly as possible. The patient tolerated the procedure well and was taken to the recovery room in stable condition. DICTATING PHYSICIAN: LAURYN MO M.D. [id number] PHY#: [id number] ID: [id number] JOB#: [id number] ACCT: [id number] cc:LAURYN MO M.D. > [facility]
[2017-09-13] MEDS: OXYCODONE-ACETAMINOPHEN 5-325 MG TABLET PO PRN (17:17)
[2017-09-13] MEDS ORDERED: PIPERACILLIN SODIUM/TAZOBACTAM 2.25 GM in NORMAL SALINE 50 ML IV SCH (18:00)
[2017-09-13 19:26] LABS: AMORPHOUS SEDIMENT,URINE 2+ /HPF; BILIRUBIN,URINE NEGATIVE (NEGATIVE); GLUCOSE, URINE NEGATIVE (NEGATIVE); KETONES,URINE NEGATIVE (NEGATIVE); LEUKOCYTE ESTERASE,URINE TRACE (NEGATIVE); NITRITE,URINE NEGATIVE (NEGATIVE); PROTEIN,URINE 30 mg/dL (NEGATIVE); URINE SPECIFIC GRAVITY 1.017
[2017-09-13 19:28] LABS: APPEARANCE,URINE SLIGHTLY-CLOUDY
[2017-09-13] MEDS: SIMVASTATIN 40 MG TABLET PO SCH (21:47)
[2017-09-14] MEDS: OXYCODONE-ACETAMINOPHEN 5-325 MG TABLET PO PRN ×2 (03:11→22:36)
[2017-09-14] MEDS: PREGABALIN 75 MG CAPSULE PO SCH ×2 (05:06→22:36)
[2017-09-14] MEDS: RINGERS SOLUTION,LACTATED 1,000 ML IV PRN (05:59)
[2017-09-14 06:16] LABS: ANION GAP 14 (5-19); BLOOD UREA NITROGEN 26 mg/dL (7-20); CALCIUM 8.5 mg/dL (8.4-10.2); CARBON DIOXIDE 18 mmol/L (22-30); CHLORIDE 103 mmol/L (98-107); CREATININE RESULT 3.59 mg/dL (0.52-1.25); GLUCOSE 157 mg/dL (75-110); MAGNESIUM 1.7 mg/dL (1.6-2.3); POTASSIUM 4.3 mmol/L (3.6-5.0); SODIUM 134.5 mmol/L (137-145)
[2017-09-14 06:21] LABS: HEMATOCRIT 21.6 % (36.0-47.0); MEAN CORPUSCULAR HEMOGLOBIN 25.7 pg (27.0-33.4); MEAN CORPUSCULAR HGB CONC 33.4 g/dL (32.0-36.0); MEAN CORPUSCULAR VOLUME 77 fl (80-97); RED BLOOD COUNT 2.82 10^6/uL (3.72-5.28); RED CELL DISTRIBUTION WIDTH 14.7 % (11.5-14.0); WHITE BLOOD COUNT 14.5 10^3/uL (4.0-10.5)
[2017-09-14 06:23] LABS: HEMOGLOBIN 7.2 g/dL (12.0-15.5)
[2017-09-14] MEDS: HYDROMORPHONE HCL INJ/PF 2 MG/ML AMPULE IV PRN ×3 (06:50→18:20)
[2017-09-14] MEDS: INSULIN LISPRO 100 UNIT/ML 3 ML VIAL SUBCUT PRN ×4 (08:06→23:58)
[2017-09-14] MEDS: ENOXAPARIN SODIUM INJ 30 MG/0.3 ML DISP.SYRIN SUBCUT SCH (09:06)
[2017-09-14] MEDS: ASPIRIN 81 MG TABLET, ENT COATED PO SCH (09:53)
[2017-09-14] MEDS: CEFEPIME 2 GM/D5W RTU 2 GM/50 ML RTUPB IV SCH (09:57)
[2017-09-14] MEDS: FERROUS SULFATE 325 MG TABLET PO SCH ×3 (09:57→17:07)
[2017-09-14] MEDS: FAMOTIDINE 20 MG TABLET PO SCH (09:57)
[2017-09-14] MEDS: FLUTICASONE/SALMETEROL DISKUS 500-50 MCG/DOSE IH SCH ×2 (10:01→22:36)
[2017-09-14 11:39] LABS: CREATININE RESULT 3.98 mg/dL (0.52-1.25)
[2017-09-14] MEDS ORDERED: KETOROLAC TROMETHAMINE 60 MG/2 ML SDV ONE (13:10)
[2017-09-14] MEDS ORDERED: GLYCOPYRROLATE INJ 0.4 MG/2 ML VIAL ONE (13:10)
[2017-09-14] MEDS ORDERED: LIDOCAINE 2% INJ-PF (20 MG/ML) 2 ML AMPUL ONE (13:10)
[2017-09-14] MEDS ORDERED: ONDANSETRON HCL INJ/PF 4 MG/2 ML SDV ONE (13:10)
[2017-09-14] MEDS ORDERED: METOCLOPRAMIDE HCL INJ/PF 10 MG/2 ML SDV ONE (13:10)
--- NOTE | 2017-09-14 13:21 | PDOC PROGRESS REPORT ---
Subjective Progress Note for:: 09/14/17 Subjective:: She had a lot of bleeding last night from operative. Physical Exam Vital Signs: Temp Pulse Resp BP Pulse Ox 97.4 F 76 20 129/70 H 100 09/14/17 10:54 09/14/17 10:54 09/14/17 10:54 09/14/17 10:54 09/14/17 10:54 Intake & Output 09/13/17 09/14/17 09/15/17 06:59 06:59 06:59 Intake Total 2792 3546 1500 Output Total 645 1225 Balance 2147 2321 1500 Weight 142.3 kg 142.3 kg General appearance: PRESENT: no acute distress Musculoskeletal exam: PRESENT: other - Bloody dressing removed down to the open wound this is a near complete transmetatarsal amputation of the forefoot with preservation of the fifth toe. Some clots in the recesses of the wound but overall no foul smell or drainage. The proximal skin appears viable. Results Laboratory Results: 09/14/17 05:43 09/14/17 11:18 09/13/17 09/13/17 09/13/17 09:07 16:02 19:00 WBC RBC Hgb Hct MCV MCH MCHC RDW Plt Count Sodium 137.2 Potassium 4.1 Chloride 102 Carbon Dioxide 20 L Anion Gap 15 BUN 21 H Creatinine 3.04 H Est GFR ( Amer) 20 L Est GFR (Non-Af Amer) 17 L Glucose 160 H Calcium 8.2 L Magnesium Urine Color YELLOW Urine Appearance SLIGHTLY-CLOUDY Urine pH 5.0 Ur Specific [place] 1.017 Urine Protein 30 H Urine Glucose (UA) NEGATIVE Urine Ketones NEGATIVE Urine Blood NEGATIVE Urine Nitrite NEGATIVE Ur Leukocyte Esterase TRACE H Urine WBC (Auto) 2 Blood Type B POSITIVE Antibody Screen NEGATIVE 09/14/17 09/14/17 09/14/17 05:43 05:43 11:18 WBC 14.5 H RBC 2.82 L Hgb 7.2 L Hct 21.6 L MCV 77 L MCH 25.7 L MCHC 33.4 RDW 14.7 H Plt Count 394 Sodium 134.5 L Potassium 4.3 Chloride 103 Carbon Dioxide 18 L Anion Gap 14 BUN 26 H Creatinine 3.59 H 3.98 H Est GFR ( Amer) 17 L 15 L Est GFR (Non-Af Amer) 14 L 12 L Glucose 157 H Calcium 8.5 Magnesium 1.7 Urine Color Urine Appearance Urine pH Ur Specific [place] Urine Protein Urine Glucose (UA) Urine Ketones Urine Blood Urine Nitrite Ur Leukocyte Esterase Urine WBC (Auto) Blood Type Antibody Screen 09/11/17 19:17 Creatine Kinase 277 H Impressions: Lower Extremity CT 09/11/17 00:00 IMPRESSION: Diffuse left foot and left ankle cellulitis Renal Ultrasound 09/13/17 00:00 IMPRESSION: Limited due to body habitus. No hydronephrosis Assessment & Plan - Diagnosis (1) Left leg cellulitis Is this a current diagnosis for this admission?: Yes Plan: With necrosis of the forefoot; 1 day status post near complete amputation of the distal left forefoot with preservation of the left fifth toe dressing changed today; no indication for further debridement. Source control appears to be achieved Hand: 1. Dressing reapplied today; will change tomorrow and if suitable, place wound VAC 2. Will be an appropriate candidate for plantar flap closure during this hospitalization if the wound performs satisfactorily.
[2017-09-14] MEDS ORDERED: ZOLPIDEM TARTRATE 5 MG TABLET PO PRN (15:00)
--- NOTE | 2017-09-14 16:16 | PDOC PROGRESS REPORT ---
Subjective Progress Note for:: 09/14/17 - ` Reason For Visit: Patient seen on rounds. She is resting in bed. She has her left foot elevated. There is visible bloody drainage through the dressing. Dr. Colby, surgicalist, change the dressing earlier this morning on his rounds. She is presently receiving 2 units of packed red blood cells due to acute blood loss anemia from the surgery. The patient is a 42-year-old female with underlying diabetes mellitus type 2. She was hospitalized from 09/06 through 09/09/2017 for cellulitis. Unfortunately, the swelling and erythema recurred in the left foot and she developed a blister on the dorsum of the left foot. Therefore, on 09/11/17 she was readmitted for cellulitis. She did have a CT scan of the lower extremity that did not demonstrate abscess formation. MRI was performed last week that was negative for osteomyelitis. Surgery was consulted. They took the patient to the operating room 09/12/17 for debridement and again on for debridement. She was found to have significant infection and necrosis. The surgeon, Dr. Whipple feels that the foot is compromised by poor vascular circulation. Therefore, the plan will be to treat the patient with intravenous antibiotics. She may need to undergo vascular studies and consult with vascular surgery surgeon. At this point she has decent peripheral pulses Dr. Colby feels this could wait. She also has acute kidney injury which would preclude arteriograms at the present time. Physical Exam Vital Signs: Temp Pulse Resp BP Pulse Ox 98.2 F 82 20 103/61 99 09/14/17 13:15 09/14/17 13:15 09/14/17 13:15 09/14/17 14:15 09/14/17 13:15 Intake & Output 09/13/17 09/14/17 09/15/17 06:59 06:59 06:59 Intake Total 6902 4886 1800 Output Total 645 1225 Balance 2147 2321 1800 Weight 142.3 kg 142.3 kg General appearance: PRESENT: no acute distress, morbidly obese, well-developed, well-nourished Head exam: PRESENT: atraumatic, normocephalic Eye exam: PRESENT: conjunctiva pink, EOMI, PERRLA. ABSENT: scleral icterus Ear exam: PRESENT: normal external ear exam Mouth exam: PRESENT: moist, tongue midline Neck exam: ABSENT: carotid bruit, JVD, lymphadenopathy, thyromegaly Respiratory exam: PRESENT: clear to auscultation mary. ABSENT: rales, rhonchi, wheezes Cardiovascular exam: PRESENT: bradycardia Pulses: PRESENT: normal dorsalis pedis pul Vascular exam: PRESENT: normal capillary refill GI/Abdominal exam: PRESENT: normal bowel sounds, soft. ABSENT: distended, guarding, mass, organolmegaly, rebound, tenderness Rectal exam: PRESENT: deferred Extremities exam: PRESENT: full ROM, +1 edema - bilateral lower extremities Musculoskeletal exam: PRESENT: ambulatory, full ROM, tenderness - left foot Neurological exam: PRESENT: alert, awake, oriented to person, oriented to place , oriented to time, oriented to situation, CN II-XII grossly intact. ABSENT: motor sensory deficit Psychiatric exam: PRESENT: appropriate affect, normal mood. ABSENT: homicidal ideation, suicidal ideation Skin exam: PRESENT: warm, other - Surgical wound to left foot with visible bloody drainage Results Laboratory Results: 09/14/17 05:43 09/14/17 11:18 09/13/17 09/13/17 09/13/17 09:07 16:02 19:00 WBC RBC Hgb Hct MCV MCH MCHC RDW Plt Count Sodium 137.2 Potassium 4.1 Chloride 102 Carbon Dioxide 20 L Anion Gap 15 BUN 21 H Creatinine 3.04 H Est GFR ( Amer) 20 L Est GFR (Non-Af Amer) 17 L Glucose 160 H Calcium 8.2 L Magnesium Urine Color YELLOW Urine Appearance SLIGHTLY-CLOUDY Urine pH 5.0 Ur Specific [place] 1.017 Urine Protein 30 H Urine Glucose (UA) NEGATIVE Urine Ketones NEGATIVE Urine Blood NEGATIVE Urine Nitrite NEGATIVE Ur Leukocyte Esterase TRACE H Urine WBC (Auto) 2 Blood Type B POSITIVE Antibody Screen NEGATIVE 09/14/17 09/14/17 09/14/17 05:43 05:43 11:18 WBC 14.5 H RBC 2.82 L Hgb 7.2 L Hct 21.6 L MCV 77 L MCH 25.7 L MCHC 33.4 RDW 14.7 H Plt Count 394 Sodium 134.5 L Potassium 4.3 Chloride 103 Carbon Dioxide 18 L Anion Gap 14 BUN 26 H Creatinine 3.59 H 3.98 H Est GFR ( Amer) 17 L 15 L Est GFR (Non-Af Amer) 14 L 12 L Glucose 157 H Calcium 8.5 Magnesium 1.7 Urine Color Urine Appearance Urine pH Ur Specific [place] Urine Protein Urine Glucose (UA) Urine Ketones Urine Blood Urine Nitrite Ur Leukocyte Esterase Urine WBC (Auto) Blood Type Antibody Screen 09/11/17 19:17 Creatine Kinase 277 H Impressions: Lower Extremity CT 09/11/17 00:00 IMPRESSION: Diffuse left foot and left ankle cellulitis Renal Ultrasound 09/13/17 00:00 IMPRESSION: Limited due to body habitus. No hydronephrosis Assessment & Plan - Diagnosis (1) Sepsis affecting skin Is this a current diagnosis for this admission?: Yes Plan: Improving. Leukocytosis is trending down. We will continue on IV broad- spectrum antibiotics. Cultures are pending (2) Diabetes mellitus type 1.5 Is this a current diagnosis for this admission?: Yes Plan: Continue present medications sliding scale coverage (3) Left leg cellulitis Is this a current diagnosis for this admission?: Yes Plan: As #1 (4) Morbid obesity with BMI of 50.0-59.9, adult Is this a current diagnosis for this admission?: Yes Plan: Counseled (5) Peripheral vascular disease Is this a current diagnosis for this admission?: Yes Plan: Presently extremities are warm with adequate pulses. She she will need follow- up with vascular surgery once acute kidney injury is resolved (6) Acute renal failure Qualifiers: Acute renal failure type: unspecified Qualified Code(s): N17.9 - Acute kidney failure, unspecified Is this a current diagnosis for this admission?: Yes Plan: Avoid nephrotoxic dosages and medications. Dr. Jang is following the patient from nephrology. Acute kidney injury most likely from sepsis, dehydration and acute blood loss in the setting of chronic kidney disease stage III (7) Anemia Qualifiers: Anemia type: iron deficiency Iron deficiency anemia type: inadequate dietary iron intake Qualified Code(s): D50.8 - Other iron deficiency anemias
[2017-09-14 17:43] LABS: APPEARANCE,URINE SLIGHTLY-CLOUDY; BILIRUBIN,URINE NEGATIVE (NEGATIVE); GLUCOSE, URINE NEGATIVE (NEGATIVE); KETONES,URINE NEGATIVE (NEGATIVE); LEUKOCYTE ESTERASE,URINE SMALL (NEGATIVE); NITRITE,URINE NEGATIVE (NEGATIVE); PROTEIN,URINE NEGATIVE (NEGATIVE); URINE SPECIFIC GRAVITY 1.008; UROBILINOGEN,URINE NEGATIVE mg/dL (<2.0)
[2017-09-14 21:05] LABS: ABSOLUTE BASOPHILS # (AUTO) 0.1 10^3/uL (0.0-0.2); ABSOLUTE EOSINOPHILS # (AUTO) 0.2 10^3/uL (0.0-0.6); ABSOLUTE LYMPHOCYTES (AUTO) 2.9 10^3/uL (0.5-4.7); ABSOLUTE NEUT (AUTO) 9.4 10^3/uL (1.7-8.2); BASOPHILS % (AUTO) 0.8 % (0-2); EOSINOPHILS % (AUTO) 1.6 % (0-6); HEMOGLOBIN 9.1 g/dL (12.0-15.5); HGB HCT DIFFERENCE 0.3; LYMPHOCYTES % (AUTO) 21.3 % (13-45); MEAN CORPUSCULAR HEMOGLOBIN 26.4 pg (27.0-33.4); MEAN CORPUSCULAR HGB CONC 33.9 g/dL (32.0-36.0); MEAN CORPUSCULAR VOLUME 78 fl (80-97); MONOCYTES % (AUTO) 7.1 % (3-13); RED BLOOD COUNT 3.46 10^6/uL (3.72-5.28); RED CELL DISTRIBUTION WIDTH 15.4 % (11.5-14.0); SEGMENTED NEUTROPHILS % (AUTO) 69.2 % (42-78); WHITE BLOOD COUNT 13.6 10^3/uL (4.0-10.5)
[2017-09-14] MEDS: SIMVASTATIN 40 MG TABLET PO SCH (22:36)
[2017-09-15] MEDS: HYDROMORPHONE HCL INJ/PF 2 MG/ML AMPULE IV PRN ×4 (00:17→22:19)
[2017-09-15 06:43] LABS: HEMATOCRIT 23.3 % (36.0-47.0); HGB HCT DIFFERENCE 0.4; MEAN CORPUSCULAR HEMOGLOBIN 26.5 pg (27.0-33.4); MEAN CORPUSCULAR HGB CONC 33.9 g/dL (32.0-36.0); MEAN CORPUSCULAR VOLUME 78 fl (80-97); RED BLOOD COUNT 2.98 10^6/uL (3.72-5.28); RED CELL DISTRIBUTION WIDTH 15.6 % (11.5-14.0); WHITE BLOOD COUNT 10.2 10^3/uL (4.0-10.5)
[2017-09-15 06:45] LABS: HEMOGLOBIN 7.9 g/dL (12.0-15.5)
[2017-09-15 07:13] LABS: ANION GAP 13 (5-19); BLOOD UREA NITROGEN 29 mg/dL (7-20); CALCIUM 8.1 mg/dL (8.4-10.2); CARBON DIOXIDE 19 mmol/L (22-30); CHLORIDE 102 mmol/L (98-107); CREATININE RESULT 4.37 mg/dL (0.52-1.25); GLUCOSE 133 mg/dL (75-110); MAGNESIUM 1.8 mg/dL (1.6-2.3); POTASSIUM 4.3 mmol/L (3.6-5.0); SODIUM 134.1 mmol/L (137-145)
[2017-09-15] MEDS: INSULIN LISPRO 100 UNIT/ML 3 ML VIAL SUBCUT PRN ×4 (08:06→22:20)
[2017-09-15] MEDS: RINGERS SOLUTION,LACTATED 1,000 ML IV PRN (08:09)
[2017-09-15] MEDS: ENOXAPARIN SODIUM INJ 30 MG/0.3 ML DISP.SYRIN SUBCUT SCH (09:20)
[2017-09-15] MEDS: ASPIRIN 81 MG TABLET, ENT COATED PO SCH (09:21)
[2017-09-15] MEDS: OXYCODONE-ACETAMINOPHEN 5-325 MG TABLET PO PRN ×2 (09:31→20:06)
[2017-09-15] MEDS: FAMOTIDINE 20 MG TABLET PO SCH (09:32)
[2017-09-15] MEDS: PREGABALIN 75 MG CAPSULE PO SCH ×2 (09:32→22:19)
[2017-09-15] MEDS: FERROUS SULFATE 325 MG TABLET PO SCH ×3 (09:33→18:29)
[2017-09-15] MEDS: FLUTICASONE/SALMETEROL DISKUS 500-50 MCG/DOSE IH SCH ×2 (09:33→22:19)
[2017-09-15] MEDS: CEFEPIME 2 GM/D5W RTU 2 GM/50 ML RTUPB IV SCH (09:33)
[2017-09-15 12:41] LABS: ABSOLUTE BASOPHILS # (AUTO) 0.1 10^3/uL (0.0-0.2); ABSOLUTE EOSINOPHILS # (AUTO) 0.2 10^3/uL (0.0-0.6); ABSOLUTE LYMPHOCYTES (AUTO) 2.7 10^3/uL (0.5-4.7); ABSOLUTE MONOCYTES (AUTO) 0.9 10^3/uL (0.1-1.4); ABSOLUTE NEUT (AUTO) 7.8 10^3/uL (1.7-8.2); BASOPHILS % (AUTO) 0.7 % (0-2); EOSINOPHILS % (AUTO) 1.8 % (0-6); HEMATOCRIT 24.9 % (36.0-47.0); HEMOGLOBIN 8.4 g/dL (12.0-15.5); HGB HCT DIFFERENCE 0.3; LYMPHOCYTES % (AUTO) 23.1 % (13-45); MEAN CORPUSCULAR HEMOGLOBIN 26.6 pg (27.0-33.4); MEAN CORPUSCULAR HGB CONC 33.8 g/dL (32.0-36.0); MEAN CORPUSCULAR VOLUME 79 fl (80-97); MONOCYTES % (AUTO) 7.4 % (3-13); RED BLOOD COUNT 3.16 10^6/uL (3.72-5.28); RED CELL DISTRIBUTION WIDTH 15.3 % (11.5-14.0); WHITE BLOOD COUNT 11.6 10^3/uL (4.0-10.5)
[2017-09-15 19:43] LABS: ABSOLUTE BASOPHILS # (AUTO) 0.1 10^3/uL (0.0-0.2); ABSOLUTE EOSINOPHILS # (AUTO) 0.2 10^3/uL (0.0-0.6); ABSOLUTE MONOCYTES (AUTO) 0.5 10^3/uL (0.1-1.4); ABSOLUTE NEUT (AUTO) 6.8 10^3/uL (1.7-8.2); BASOPHILS % (AUTO) 1.1 % (0-2); EOSINOPHILS % (AUTO) 1.7 % (0-6); HEMATOCRIT 28.1 % (36.0-47.0); HEMOGLOBIN 9.5 g/dL (12.0-15.5); HGB HCT DIFFERENCE 0.4; LYMPHOCYTES % (AUTO) 21.2 % (13-45); MEAN CORPUSCULAR HEMOGLOBIN 26.7 pg (27.0-33.4); MEAN CORPUSCULAR HGB CONC 33.8 g/dL (32.0-36.0); MEAN CORPUSCULAR VOLUME 79 fl (80-97); MONOCYTES % (AUTO) 5.6 % (3-13); RED BLOOD COUNT 3.57 10^6/uL (3.72-5.28); RED CELL DISTRIBUTION WIDTH 15.4 % (11.5-14.0); SEGMENTED NEUTROPHILS % (AUTO) 70.4 % (42-78); WHITE BLOOD COUNT 9.7 10^3/uL (4.0-10.5)
--- NOTE | 2017-09-15 20:21 | PDOC PROGRESS REPORT ---
Subjective Progress Note for:: 09/15/17 Subjective:: Pains left foot Reason For Visit: CELLULITIS Physical Exam Vital Signs: Temp Pulse Resp BP Pulse Ox 97.8 F 78 20 106/79 100 09/15/17 15:38 09/15/17 15:38 09/15/17 15:38 09/15/17 15:38 09/15/17 15:38 Intake & Output 09/14/17 09/15/17 09/16/17 06:59 06:59 06:59 Intake Total 3546 3480 1350 Output Total 1225 600 400 Balance 2321 2880 950 Weight 142.3 kg 142.3 kg Exam: Dressing over the left foot amputation site is partially soaked with blood there is also edema around the foot and the lower leg though there is no calf tenderness. Results Laboratory Results: 09/15/17 18:50 09/15/17 06:20 09/14/17 09/15/17 09/15/17 21:01 06:20 06:20 WBC 13.6 H 10.2 RBC 3.46 L 2.98 L Hgb 9.1 L 7.9 L Hct 27.0 L 23.3 L MCV 78 L 78 L MCH 26.4 L 26.5 L MCHC 33.9 33.9 RDW 15.4 H 15.6 H Plt Count 406 371 Seg Neutrophils % 69.2 Lymphocytes % 21.3 Monocytes % 7.1 Eosinophils % 1.6 Basophils % 0.8 Absolute Neutrophils 9.4 H Absolute Lymphocytes 2.9 Absolute Monocytes 1.0 Absolute Eosinophils 0.2 Absolute Basophils 0.1 Sodium 134.1 L Potassium 4.3 Chloride 102 Carbon Dioxide 19 L Anion Gap 13 BUN 29 H Creatinine 4.37 H Est GFR ( Amer) 13 L Est GFR (Non-Af Amer) 11 L Glucose 133 H Calcium 8.1 L Magnesium 1.8 Stool Occult Blood 09/15/17 09/15/17 09/15/17 08:00 12:16 18:50 WBC 11.6 H 9.7 RBC 3.16 L 3.57 L Hgb 8.4 L 9.5 L Hct 24.9 L 28.1 L MCV 79 L 79 L MCH 26.6 L 26.7 L MCHC 33.8 33.8 RDW 15.3 H 15.4 H Plt Count 425 455 H Seg Neutrophils % 67.0 70.4 Lymphocytes % 23.1 21.2 Monocytes % 7.4 5.6 Eosinophils % 1.8 1.7 Basophils % 0.7 1.1 Absolute Neutrophils 7.8 6.8 Absolute Lymphocytes 2.7 2.0 Absolute Monocytes 0.9 0.5 Absolute Eosinophils 0.2 0.2 Absolute Basophils 0.1 0.1 Sodium Potassium Chloride Carbon Dioxide Anion Gap BUN Creatinine Est GFR ( Amer) Est GFR (Non-Af Amer) Glucose Calcium Magnesium Stool Occult Blood NEGATIVE 09/12/17 11:13 Foot - Left Gram Stain - Final 09/11/17 19:17 Creatine Kinase 277 H Impressions: Lower Extremity CT 09/11/17 00:00 IMPRESSION: Diffuse left foot and left ankle cellulitis Renal Ultrasound 09/13/17 00:00 IMPRESSION: Limited due to body habitus. No hydronephrosis Assessment & Plan - Time Time Spent with patient: 15-24 minutes - Plan Summary Plan Summary: #1 reinforce the dressing over the left foot tonight 2. We will place a wound VAC over the left foot amputation site tomorrow hopefully the bleeding is practically stopped by then. 3. Continue with IV antibiotic therapy
[2017-09-15] MEDS: SIMVASTATIN 40 MG TABLET PO SCH (22:19)
[2017-09-16] MEDS: OXYCODONE-ACETAMINOPHEN 5-325 MG TABLET PO PRN ×2 (01:47→08:29)
[2017-09-16 06:50] LABS: ANION GAP 14 (5-19); BLOOD UREA NITROGEN 38 mg/dL (7-20); CALCIUM 8.4 mg/dL (8.4-10.2); CARBON DIOXIDE 17 mmol/L (22-30); CHLORIDE 106 mmol/L (98-107); CREATININE RESULT 4.51 mg/dL (0.52-1.25); GLUCOSE 160 mg/dL (75-110); MAGNESIUM 2.1 mg/dL (1.6-2.3); SODIUM 136.9 mmol/L (137-145)
[2017-09-16 06:59] LABS: POTASSIUM 5.3 mmol/L (3.6-5.0)
[2017-09-16] MEDS ORDERED: NORMAL SALINE 1000 ML 1,000 ML IV PRN (08:02)
[2017-09-16] MEDS ORDERED: MORPHINE SULFATE 10 MG/ML INJ ONE (09:04)
[2017-09-16 09:29] LABS: HEMATOCRIT 24.5 % (36.0-47.0); HEMOGLOBIN 8.4 g/dL (12.0-15.5); HGB HCT DIFFERENCE 0.7; MEAN CORPUSCULAR HEMOGLOBIN 27.4 pg (27.0-33.4); MEAN CORPUSCULAR HGB CONC 34.5 g/dL (32.0-36.0); MEAN CORPUSCULAR VOLUME 79 fl (80-97); RED BLOOD COUNT 3.09 10^6/uL (3.72-5.28); RED CELL DISTRIBUTION WIDTH 15.8 % (11.5-14.0); WHITE BLOOD COUNT 10.6 10^3/uL (4.0-10.5)
[2017-09-16] MEDS: CEFEPIME 2 GM/D5W RTU 2 GM/50 ML RTUPB IV SCH (10:31)
[2017-09-16] MEDS: PREGABALIN 75 MG CAPSULE PO SCH ×2 (10:32→23:40)
[2017-09-16] MEDS: FAMOTIDINE 20 MG TABLET PO SCH (10:32)
[2017-09-16] MEDS: ASPIRIN 81 MG TABLET, ENT COATED PO SCH (10:32)
[2017-09-16] MEDS: FERROUS SULFATE 325 MG TABLET PO SCH ×3 (10:32→17:37)
[2017-09-16] MEDS: FLUTICASONE/SALMETEROL DISKUS 500-50 MCG/DOSE IH SCH ×2 (10:33→23:42)
[2017-09-16] MEDS: INSULIN LISPRO 100 UNIT/ML 3 ML VIAL SUBCUT PRN ×2 (15:04→23:44)
[2017-09-16] MEDS: OXYCODONE HCL IR 5 MG TABLET PO PRN ×2 (17:37→23:41)
--- NOTE | 2017-09-16 20:52 | PDOC PROGRESS REPORT ---
Subjective Subjective:: left foot pains,post distal amp 1st to 4th toes Reason For Visit: CELLULITIS Placement of wound vac to left foot Physical Exam Vital Signs: Temp Pulse Resp BP Pulse Ox 97.8 F 96 18 154/73 H 100 09/16/17 16:00 09/16/17 16:00 09/16/17 16:00 09/16/17 16:00 09/16/17 16:00 Intake & Output 09/15/17 09/16/17 09/17/17 06:59 06:59 06:59 Intake Total 3480 2250 1050 Output Total 600 1100 2150 Balance 2880 1150 -1100 Weight 142.3 kg 143.2 kg Exam: Wound looks clean with starting granulation tissue Results Laboratory Results: 09/16/17 08:54 09/16/17 05:53 09/16/17 09/16/17 09/16/17 05:53 05:53 08:54 WBC Cancelled 10.6 H RBC Cancelled 3.09 L Hgb Cancelled 8.4 L Hct Cancelled 24.5 L MCV Cancelled 79 L MCH Cancelled 27.4 MCHC Cancelled 34.5 RDW Cancelled 15.8 H Plt Count Cancelled 432 Sodium 136.9 L Potassium 5.3 H D Chloride 106 Carbon Dioxide 17 L Anion Gap 14 BUN 38 H Creatinine 4.51 H Est GFR ( Amer) 13 L Est GFR (Non-Af Amer) 11 L Glucose 160 H Calcium 8.4 Magnesium 2.1 Ur 24 Hour Volume Ur Total Protein 24 Hr 09/16/17 16:00 WBC RBC Hgb Hct MCV MCH MCHC RDW Plt Count Sodium Potassium Chloride Carbon Dioxide Anion Gap BUN Creatinine Est GFR ( Amer) Est GFR (Non-Af Amer) Glucose Calcium Magnesium Ur 24 Hour Volume 2100 Ur Total Protein 24 Hr 441 H 09/12/17 11:13 Foot - Left Gram Stain - Final 09/12/17 11:13 Foot - Left Wound Culture - Final Peptostreptococcus Species No Aerobic Organisms 09/12/17 11:13 Foot - Left Gram Stain - Final 09/12/17 11:13 Foot - Left Wound Culture - Final NO AEROBIC OR ANAEROBIC ORGANISMS RECOVERED 09/13/17 12:28 Foot - Left Gram Stain - Final 09/13/17 12:28 Foot - Left Wound Culture - Final NO AEROBIC OR ANAEROBIC ORGANISMS RECOVERED 09/11/17 19:17 Creatine Kinase 277 H Impressions: Lower Extremity CT 09/11/17 00:00 IMPRESSION: Diffuse left foot and left ankle cellulitis Renal Ultrasound 09/13/17 00:00 IMPRESSION: Limited due to body habitus. No hydronephrosis Assessment & Plan - Time Time Spent with patient: 25-34 minutes - Plan Summary Plan Summary: A wound Vac was placed over the left foot wound and set at -125mm Hg pressure. Tolerated well. Continue IV antibiotics
[2017-09-16 23:11] LABS: APPEARANCE,URINE CLEAR; BILIRUBIN,URINE NEGATIVE (NEGATIVE); GLUCOSE, URINE NEGATIVE (NEGATIVE); KETONES,URINE NEGATIVE (NEGATIVE); LEUKOCYTE ESTERASE,URINE SMALL (NEGATIVE); NITRITE,URINE NEGATIVE (NEGATIVE); PROTEIN,URINE NEGATIVE (NEGATIVE); URINE SPECIFIC GRAVITY 1.005; UROBILINOGEN,URINE NEGATIVE mg/dL (<2.0)
[2017-09-16] MEDS: SIMVASTATIN 40 MG TABLET PO SCH (23:41)
[2017-09-17 07:15] LABS: ABSOLUTE BASOPHILS # (AUTO) 0.1 10^3/uL (0.0-0.2); ABSOLUTE EOSINOPHILS # (AUTO) 0.2 10^3/uL (0.0-0.6); ABSOLUTE LYMPHOCYTES (AUTO) 1.7 10^3/uL (0.5-4.7); ABSOLUTE MONOCYTES (AUTO) 0.8 10^3/uL (0.1-1.4); ABSOLUTE NEUT (AUTO) 9.5 10^3/uL (1.7-8.2); BASOPHILS % (AUTO) 0.6 % (0-2); EOSINOPHILS % (AUTO) 1.9 % (0-6); HEMATOCRIT 23.4 % (36.0-47.0); HGB HCT DIFFERENCE 0.6; LYMPHOCYTES % (AUTO) 13.6 % (13-45); MEAN CORPUSCULAR HGB CONC 34.2 g/dL (32.0-36.0); MEAN CORPUSCULAR VOLUME 79 fl (80-97); MONOCYTES % (AUTO) 6.7 % (3-13); RED BLOOD COUNT 2.97 10^6/uL (3.72-5.28); RED CELL DISTRIBUTION WIDTH 15.7 % (11.5-14.0); SEGMENTED NEUTROPHILS % (AUTO) 77.2 % (42-78); WHITE BLOOD COUNT 12.3 10^3/uL (4.0-10.5)
[2017-09-17 07:38] LABS: ANION GAP 14 (5-19); BLOOD UREA NITROGEN 42 mg/dL (7-20); CALCIUM 8.6 mg/dL (8.4-10.2); CARBON DIOXIDE 19 mmol/L (22-30); CHLORIDE 107 mmol/L (98-107); CREATININE RESULT 4.19 mg/dL (0.52-1.25); GLUCOSE 143 mg/dL (75-110); POTASSIUM 5.3 mmol/L (3.6-5.0); SODIUM 139.7 mmol/L (137-145)
[2017-09-17] MEDS: FLUTICASONE/SALMETEROL DISKUS 500-50 MCG/DOSE IH SCH ×2 (09:49→22:45)
[2017-09-17] MEDS: OXYCODONE HCL IR 5 MG TABLET PO PRN ×3 (09:50→23:52)
[2017-09-17] MEDS: FERROUS SULFATE 325 MG TABLET PO SCH ×3 (09:51→17:24)
[2017-09-17] MEDS: ASPIRIN 81 MG TABLET, ENT COATED PO SCH (09:51)
[2017-09-17] MEDS: PREGABALIN 75 MG CAPSULE PO SCH ×2 (09:51→22:53)
[2017-09-17] MEDS: FAMOTIDINE 20 MG TABLET PO SCH (09:51)
[2017-09-17] MEDS: CEFEPIME 2 GM/D5W RTU 2 GM/50 ML RTUPB IV SCH (09:52)
--- NOTE | 2017-09-17 12:55 | RADIOLOGY REPORT (SQ) ---
EXAM DESCRIPTION: CHEST SINGLE VIEW COMPLETED DATE/TIME: 09/17/2017 12:17 pm REASON FOR STUDY: check placement of tripple lumen to IJ COMPARISON: None. EXAM PARAMETERS: NUMBER OF VIEWS: One view. TECHNIQUE: Single frontal radiographic view of the chest acquired. RADIATION DOSE: NA LIMITATIONS: Lordotic portable film, obese patient FINDINGS: Left jugular central line tip superior vena cava. No pneumothorax. LUNGS AND PLEURA: No opacities, masses or pneumothorax. No pleural effusion. MEDIASTINUM AND HILAR STRUCTURES: No masses. Contour normal. HEART AND VASCULAR STRUCTURES: Borderline cardiomegaly BONES: No acute findings. HARDWARE: Left jugular central line tip superior vena cava OTHER: No other significant finding. IMPRESSION: Left jugular central line tip superior vena cava TECHNICAL DOCUMENTATION: JOB ID: [id number] [employer]- All Rights Reserved
--- NOTE | 2017-09-17 13:08 | OPERATIVE REPORT E ---
Operative Report NAME: RUTH WOOD : 1975 AGE: 42Y DATE OF SURGERY: 09/17/2017 ROOM: 426 PREOPERATIVE DIAGNOSIS: Poor veins for IV access. POSTOPERATIVE DIAGNOSIS: Poor veins for IV access. OPERATION: Placement of left internal jugular vein triple-lumen catheter. SURGEON: JESUS WHITEHEAD M.D. ANESTHESIA: Local. INDICATION: This is a 42-year-old female with infected left foot with post amputation of the left toes. The patient needed IV access and since the remaining IV just got plugged, unable to be used. DESCRIPTION OF PROCEDURE: The patient placed in a slight Trendelenburg position and the left neck prepped and draped in the usual sterile fashion. With the use of the ultrasound, the left internal jugular vein was then identified. Xylocaine 1% was then injected through the skin towards the internal jugular vein. The internal jugular vein was subsequently punctured with a large needle and a guidewire passed through the needle into the superior vena cava. The needle was removed and the puncture site enlarged. A triple-lumen catheter was inserted through the guidewire into the area of the superior vena cava to a distant about 16 cm. Next 3 ports easily aspirated blood and easily infused saline. Next, the catheter was anchored to the skin with 3-0 silk. A Biopatch was placed at the entrance site and a transparent dressing placed around the Biopatch and catheter. A chest x-ray was later obtained which showed the catheter right at the superior vena cava with no obvious pneumothorax. The patient tolerated the procedure well. DICTATING PHYSICIAN: JESUS WHITEHEAD M.D. [id number] Y#: [id number] ID: [id number] JOB#: [id number] ACCT: [id number] cc:JESUS WHITEHEAD M.D. >
[2017-09-17] MEDS: SIMVASTATIN 40 MG TABLET PO SCH (22:53)
[2017-09-18] MEDS: INSULIN LISPRO 100 UNIT/ML 3 ML VIAL SUBCUT PRN ×3 (00:03→22:02)
--- NOTE | 2017-09-18 03:03 | PDOC PROGRESS REPORT ---
Subjective Progress Note for:: 09/17/17 Subjective:: Less pains along the left foot Vac site Reason For Visit: CELLULITIS Physical Exam Vital Signs: Temp Pulse Resp BP Pulse Ox 98.6 F 88 18 156/80 H 100 09/17/17 23:27 09/17/17 23:27 09/17/17 23:27 09/17/17 23:27 09/17/17 23:27 Intake & Output 09/16/17 09/17/17 09/18/17 06:59 06:59 06:59 Intake Total 2250 1731 1220 Output Total 1100 3650 1450 Balance 1150 -1099 -230 Weight 143.2 kg 143.6 kg Exam: The left foot back is in place. The swelling of the left leg are so improving. Results Laboratory Results: 09/17/17 05:48 09/17/17 05:48 09/17/17 09/17/17 05:48 05:48 WBC 12.3 H RBC 2.97 L Hgb 8.0 L Hct 23.4 L MCV 79 L MCH 27.0 MCHC 34.2 RDW 15.7 H Plt Count 439 Seg Neutrophils % 77.2 Lymphocytes % 13.6 Monocytes % 6.7 Eosinophils % 1.9 Basophils % 0.6 Absolute Neutrophils 9.5 H Absolute Lymphocytes 1.7 Absolute Monocytes 0.8 Absolute Eosinophils 0.2 Absolute Basophils 0.1 Sodium 139.7 Potassium 5.3 H Chloride 107 Carbon Dioxide 19 L Anion Gap 14 BUN 42 H Creatinine 4.19 H Est GFR ( Amer) 14 L Est GFR (Non-Af Amer) 12 L Glucose 143 H Calcium 8.6 09/11/17 22:15 Blood Blood Culture - Final NO GROWTH IN 5 DAYS 09/11/17 23:00 Blood Blood Culture - Final NO GROWTH IN 5 DAYS 09/11/17 19:17 Creatine Kinase 277 H Impressions: Lower Extremity CT 09/11/17 00:00 IMPRESSION: Diffuse left foot and left ankle cellulitis Renal Ultrasound 09/13/17 00:00 IMPRESSION: Limited due to body habitus. No hydronephrosis Chest X-Ray 09/17/17 00:00 IMPRESSION: Left jugular central line tip superior vena cava Assessment & Plan - Time Time Spent with patient: 15-24 minutes - Plan Summary Plan Summary: Continue with the VAC and IV antibiotics
[2017-09-18 05:52] LABS: HEMATOCRIT 23.3 % (36.0-47.0); HGB HCT DIFFERENCE -0.2; MEAN CORPUSCULAR HEMOGLOBIN 26.4 pg (27.0-33.4); MEAN CORPUSCULAR HGB CONC 33.2 g/dL (32.0-36.0); MEAN CORPUSCULAR VOLUME 79 fl (80-97); RED BLOOD COUNT 2.94 10^6/uL (3.72-5.28); WHITE BLOOD COUNT 11.9 10^3/uL (4.0-10.5)
[2017-09-18 05:55] LABS: HEMOGLOBIN 7.7 g/dL (12.0-15.5)
[2017-09-18 06:05] LABS: ANION GAP 10 (5-19); BLOOD UREA NITROGEN 47 mg/dL (7-20); CALCIUM 8.8 mg/dL (8.4-10.2); CARBON DIOXIDE 20 mmol/L (22-30); CHLORIDE 109 mmol/L (98-107); GLUCOSE 167 mg/dL (75-110); POTASSIUM 5.6 mmol/L (3.6-5.0); SODIUM 139.3 mmol/L (137-145)
[2017-09-18 08:55] LABS: ANION GAP 7 (5-19); BLOOD UREA NITROGEN 45 mg/dL (7-20); CALCIUM 8.9 mg/dL (8.4-10.2); CARBON DIOXIDE 23 mmol/L (22-30); CHLORIDE 108 mmol/L (98-107); CREATININE RESULT 4.07 mg/dL (0.52-1.25); GLUCOSE 152 mg/dL (75-110); POTASSIUM 5.8 mmol/L (3.6-5.0); SODIUM 137.7 mmol/L (137-145)
[2017-09-18] MEDS ORDERED: SODIUM POLYSTYRENE SULFONATE 15 GM/60 ML PO ONE (09:00)
[2017-09-18] MEDS: FAMOTIDINE 20 MG TABLET PO SCH (10:18)
[2017-09-18] MEDS: ASPIRIN 81 MG TABLET, ENT COATED PO SCH (10:18)
[2017-09-18] MEDS: PREGABALIN 75 MG CAPSULE PO SCH ×2 (10:18→22:02)
[2017-09-18] MEDS: FERROUS SULFATE 325 MG TABLET PO SCH ×3 (10:19→17:43)
[2017-09-18] MEDS: FLUTICASONE/SALMETEROL DISKUS 500-50 MCG/DOSE IH SCH ×2 (10:22→22:02)
[2017-09-18] MEDS: CEFEPIME 2 GM/D5W RTU 2 GM/50 ML RTUPB IV SCH (10:22)
--- NOTE | 2017-09-18 14:52 | PDOC PROGRESS REPORT ---
Subjective Progress Note for:: 09/15/17 Subjective:: Patient states that she is having pain in her left foot. Patient states she is going to have a wound vac placed. Reason For Visit: CELLULITIS Physical Exam Vital Signs: Temp Pulse Resp BP Pulse Ox 97.8 F 78 20 106/79 100 09/15/17 15:38 09/15/17 15:38 09/15/17 15:38 09/15/17 15:38 09/15/17 15:38 Intake & Output 09/14/17 09/15/17 09/16/17 06:59 06:59 06:59 Intake Total 3546 3480 Output Total 1225 600 Balance 2321 2880 Weight 142.3 kg 142.3 kg General appearance: PRESENT: mild distress, morbidly obese Head exam: PRESENT: atraumatic, normocephalic Eye exam: PRESENT: EOMI. ABSENT: scleral icterus Ear exam: PRESENT: normal external ear exam Mouth exam: PRESENT: moist Neck exam: ABSENT: carotid bruit, JVD, lymphadenopathy, thyromegaly Respiratory exam: PRESENT: clear to auscultation mary. ABSENT: rales, rhonchi, wheezes Cardiovascular exam: PRESENT: RRR. ABSENT: diastolic murmur, rubs, systolic murmur Vascular exam: PRESENT: normal capillary refill GI/Abdominal exam: PRESENT: normal bowel sounds, soft. ABSENT: distended, guarding, mass, organolmegaly, rebound, tenderness Rectal exam: PRESENT: deferred Extremities exam: PRESENT: full ROM, other. ABSENT: calf tenderness, clubbing, pedal edema Neurological exam: PRESENT: alert, awake, oriented to person, oriented to place , oriented to time, oriented to situation, CN II-XII grossly intact. ABSENT: motor sensory deficit Psychiatric exam: PRESENT: appropriate affect, normal mood. ABSENT: homicidal ideation, suicidal ideation Skin exam: PRESENT: dry, intact, warm. ABSENT: cyanosis, rash Results Laboratory Results: 09/15/17 12:16 09/15/17 06:20 09/14/17 09/15/17 09/15/17 21:01 06:20 06:20 WBC 13.6 H 10.2 RBC 3.46 L 2.98 L Hgb 9.1 L 7.9 L Hct 27.0 L 23.3 L MCV 78 L 78 L MCH 26.4 L 26.5 L MCHC 33.9 33.9 RDW 15.4 H 15.6 H Plt Count 406 371 Seg Neutrophils % 69.2 Lymphocytes % 21.3 Monocytes % 7.1 Eosinophils % 1.6 Basophils % 0.8 Absolute Neutrophils 9.4 H Absolute Lymphocytes 2.9 Absolute Monocytes 1.0 Absolute Eosinophils 0.2 Absolute Basophils 0.1 Sodium 134.1 L Potassium 4.3 Chloride 102 Carbon Dioxide 19 L Anion Gap 13 BUN 29 H Creatinine 4.37 H Est GFR ( Amer) 13 L Est GFR (Non-Af Amer) 11 L Glucose 133 H Calcium 8.1 L Magnesium 1.8 Stool Occult Blood 09/15/17 09/15/17 08:00 12:16 WBC 11.6 H RBC 3.16 L Hgb 8.4 L Hct 24.9 L MCV 79 L MCH 26.6 L MCHC 33.8 RDW 15.3 H Plt Count 425 Seg Neutrophils % 67.0 Lymphocytes % 23.1 Monocytes % 7.4 Eosinophils % 1.8 Basophils % 0.7 Absolute Neutrophils 7.8 Absolute Lymphocytes 2.7 Absolute Monocytes 0.9 Absolute Eosinophils 0.2 Absolute Basophils 0.1 Sodium Potassium Chloride Carbon Dioxide Anion Gap BUN Creatinine Est GFR ( Amer) Est GFR (Non-Af Amer) Glucose Calcium Magnesium Stool Occult Blood NEGATIVE 09/12/17 11:13 Foot - Left Gram Stain - Final 09/11/17 19:17 Creatine Kinase 277 H Impressions: Lower Extremity CT 09/11/17 00:00 IMPRESSION: Diffuse left foot and left ankle cellulitis Renal Ultrasound 09/13/17 00:00 IMPRESSION: Limited due to body habitus. No hydronephrosis Assessment & Plan - Diagnosis (1) Left leg cellulitis Is this a current diagnosis for this admission?: Yes Plan: Patient is status post transmetatarsal amputation. Patient is currently on vancomcyin and cefepime. Will discontinue vancomycin due to AIN. (2) Diabetes mellitus type 1.5 Is this a current diagnosis for this admission?: Yes Plan: Continue SSI. (3) Morbid obesity with BMI of 50.0-59.9, adult Is this a current diagnosis for this admission?: Yes Plan: Will college and career counselor patient on weight loss. (4) Peripheral vascular disease Is this a current diagnosis for this admission?: Yes Plan: Patient will need follow up with vascular surgery. (5) Sepsis affecting skin Is this a current diagnosis for this admission?: Yes Plan: Improving on current antibiotics which are vancomycin and cefepime however patient may have developed AIN as result of the antibiotics or ATN due to infections. Patient was not given contrast. (6) Acute renal failure Qualifiers: Acute renal failure type: unspecified Qualified Code(s): N17.9 - Acute kidney failure, unspecified Is this a current diagnosis for this admission?: Yes Plan: Patient may have developed AIN as result of the antibiotics or ATN due to infections. Patient was not given contrast. Will discontinue vancomycin as patient is not growning MRSA and continue on cefepime. Patient still has good urine out patient. Will continue to monitor creatinine and continue IV fluids at 150cc/hr. (7) Anemia Qualifiers: Anemia type: iron deficiency Iron deficiency anemia type: inadequate dietary iron intake Qualified Code(s): D50.8 - Other iron deficiency anemias Is this a current diagnosis for this admission?: Yes Plan: Repeat CBC gives a hemoglobin in the 8s. Will continue to monitor. - Time Time Spent with patient: Less than 15 minutes Anticipated discharge: Home with Homehealth - The hospitalist are consulted on this patient.
--- NOTE | 2017-09-18 15:54 | PDOC PROGRESS REPORT ---
Subjective Progress Note for:: 09/16/17 Subjective:: Patient states that she is having pain in her left foot. Patient states that she would like her po pain medication adjusted so that she knows what will control her pain at home. Reason For Visit: CELLULITIS Physical Exam Vital Signs: Temp Pulse Resp BP Pulse Ox 97.8 F 96 18 154/73 H 100 09/16/17 16:00 09/16/17 16:00 09/16/17 16:00 09/16/17 16:00 09/16/17 16:00 Intake & Output 09/15/17 09/16/17 09/17/17 06:59 06:59 06:59 Intake Total 3480 2250 1050 Output Total 600 1100 2150 Balance 2880 1150 -1100 Weight 142.3 kg 143.2 kg General appearance: PRESENT: no acute distress, well-developed, well-nourished Head exam: PRESENT: atraumatic, normocephalic Eye exam: PRESENT: conjunctiva pink, EOMI, PERRLA. ABSENT: scleral icterus Ear exam: PRESENT: normal external ear exam Mouth exam: PRESENT: moist, tongue midline Neck exam: ABSENT: carotid bruit, JVD, lymphadenopathy, thyromegaly Respiratory exam: PRESENT: clear to auscultation mary. ABSENT: rales, rhonchi, wheezes Cardiovascular exam: PRESENT: RRR. ABSENT: diastolic murmur, rubs, systolic murmur GI/Abdominal exam: PRESENT: normal bowel sounds, soft. ABSENT: distended, guarding, mass, organolmegaly, rebound, tenderness Rectal exam: PRESENT: deferred Extremities exam: PRESENT: full ROM, other - left transmetatarsal amputation. ABSENT: calf tenderness, clubbing, pedal edema Neurological exam: PRESENT: alert, awake, oriented to person, oriented to place , oriented to time, oriented to situation, CN II-XII grossly intact. ABSENT: motor sensory deficit Psychiatric exam: PRESENT: appropriate affect, normal mood. ABSENT: homicidal ideation, suicidal ideation Skin exam: PRESENT: dry, intact, warm. ABSENT: cyanosis, rash Results Laboratory Results: 09/16/17 08:54 09/16/17 05:53 09/15/17 09/16/17 09/16/17 18:50 05:53 05:53 WBC 9.7 Cancelled RBC 3.57 L Cancelled Hgb 9.5 L Cancelled Hct 28.1 L Cancelled MCV 79 L Cancelled MCH 26.7 L Cancelled MCHC 33.8 Cancelled RDW 15.4 H Cancelled Plt Count 455 H Cancelled Seg Neutrophils % 70.4 Lymphocytes % 21.2 Monocytes % 5.6 Eosinophils % 1.7 Basophils % 1.1 Absolute Neutrophils 6.8 Absolute Lymphocytes 2.0 Absolute Monocytes 0.5 Absolute Eosinophils 0.2 Absolute Basophils 0.1 Sodium 136.9 L Potassium 5.3 H D Chloride 106 Carbon Dioxide 17 L Anion Gap 14 BUN 38 H Creatinine 4.51 H Est GFR ( Amer) 13 L Est GFR (Non-Af Amer) 11 L Glucose 160 H Calcium 8.4 Magnesium 2.1 Ur 24 Hour Volume Ur Total Protein 24 Hr 09/16/17 09/16/17 08:54 16:00 WBC 10.6 H RBC 3.09 L Hgb 8.4 L Hct 24.5 L MCV 79 L MCH 27.4 MCHC 34.5 RDW 15.8 H Plt Count 432 Seg Neutrophils % Lymphocytes % Monocytes % Eosinophils % Basophils % Absolute Neutrophils Absolute Lymphocytes Absolute Monocytes Absolute Eosinophils Absolute Basophils Sodium Potassium Chloride Carbon Dioxide Anion Gap BUN Creatinine Est GFR ( Amer) Est GFR (Non-Af Amer) Glucose Calcium Magnesium Ur 24 Hour Volume 2100 Ur Total Protein 24 Hr 441 H 09/12/17 11:13 Foot - Left Gram Stain - Final 09/12/17 11:13 Foot - Left Wound Culture - Final Peptostreptococcus Species No Aerobic Organisms 09/12/17 11:13 Foot - Left Gram Stain - Final 09/12/17 11:13 Foot - Left Wound Culture - Final NO AEROBIC OR ANAEROBIC ORGANISMS RECOVERED 09/13/17 12:28 Foot - Left Gram Stain - Final 09/13/17 12:28 Foot - Left Wound Culture - Final NO AEROBIC OR ANAEROBIC ORGANISMS RECOVERED 09/11/17 19:17 Creatine Kinase 277 H Impressions: Lower Extremity CT 09/11/17 00:00 IMPRESSION: Diffuse left foot and left ankle cellulitis Renal Ultrasound 09/13/17 00:00 IMPRESSION: Limited due to body habitus. No hydronephrosis Assessment & Plan - Diagnosis (1) Left leg cellulitis Is this a current diagnosis for this admission?: Yes Plan: Patient is status post transmetatarsal amputation. Patient on cefepime. Will continue to follow wound cultures. (2) Diabetes mellitus type 1.5 Is this a current diagnosis for this admission?: Yes Plan: Continue SSI. (3) Morbid obesity with BMI of 50.0-59.9, adult Is this a current diagnosis for this admission?: Yes Plan: Will educational guidance counselor patient on weight loss. (4) Peripheral vascular disease Is this a current diagnosis for this admission?: Yes Plan: Patient will need follow up with vascular surgery. No arteriograms at this time due to ARF. (5) Sepsis affecting skin Is this a current diagnosis for this admission?: Yes Plan: Improving on current antibiotics cefepime. Will follow wound culture and adjust antibiotics accordingly. (6) Acute renal failure Qualifiers: Acute renal failure type: unspecified Qualified Code(s): N17.9 - Acute kidney failure, unspecified Is this a current diagnosis for this admission?: Yes Plan: Patient may have developed AIN as result of the antibiotics or ATN due to infections. Patient was not given contrast. Continue monitoring urine output. Continue IV fluids. Creatinine may be plateauing and will start to trend down. Will continue to monitor. (7) Anemia Qualifiers: Anemia type: iron deficiency Iron deficiency anemia type: inadequate dietary iron intake Qualified Code(s): D50.8 - Other iron deficiency anemias Is this a current diagnosis for this admission?: Yes Plan: Stable continue to monitor. If tends down slightly, this may dilutional. - Time Time Spent with patient: Less than 15 minutes Anticipated discharge: Home with Homehealth - Inpatient Certification Medical Necessity: Need For IV Fluids
--- NOTE | 2017-09-18 16:26 | PDOC PROGRESS REPORT ---
Subjective Progress Note for:: 09/17/17 Subjective:: Patient states that she is having pain in her left foot. Patient states she is doing well. Patient states she has been up and to the [facility]. Reason For Visit: CELLULITIS Physical Exam Vital Signs: Temp Pulse Resp BP Pulse Ox 98.5 F 80 16 156/95 H 93 09/18/17 07:26 09/18/17 07:26 09/18/17 07:26 09/18/17 07:26 09/18/17 07:26 Intake & Output 09/17/17 09/18/17 09/19/17 06:59 06:59 06:59 Intake Total 1731 1870 300 Output Total 3650 2750 1100 Balance -1919 -880 -800 Weight 143.6 kg 142.3 kg General appearance: PRESENT: no acute distress, obese Head exam: PRESENT: normocephalic Eye exam: PRESENT: EOMI. ABSENT: scleral icterus Ear exam: PRESENT: normal external ear exam Mouth exam: PRESENT: moist Neck exam: ABSENT: carotid bruit, JVD, lymphadenopathy, thyromegaly Respiratory exam: PRESENT: clear to auscultation mary. ABSENT: rales, rhonchi, wheezes Cardiovascular exam: PRESENT: RRR. ABSENT: diastolic murmur, rubs, systolic murmur GI/Abdominal exam: PRESENT: normal bowel sounds, soft. ABSENT: distended, guarding, mass, organolmegaly, rebound, tenderness Rectal exam: PRESENT: deferred Extremities exam: PRESENT: pedal edema, other - left transmetatarasal amputation with wound vac in place. ABSENT: calf tenderness, clubbing Neurological exam: PRESENT: alert, awake, oriented to person, oriented to place , oriented to time, oriented to situation, CN II-XII grossly intact. ABSENT: motor sensory deficit Psychiatric exam: PRESENT: appropriate affect, normal mood. ABSENT: homicidal ideation, suicidal ideation Skin exam: PRESENT: dry, intact, warm. ABSENT: cyanosis, rash Results Laboratory Results: 09/18/17 05:15 09/18/17 08:00 09/18/17 09/18/17 09/18/17 05:15 05:15 08:00 WBC 11.9 H RBC 2.94 L Hgb 7.7 L Hct 23.3 L MCV 79 L MCH 26.4 L MCHC 33.2 RDW 16.0 H Plt Count 405 Sodium 139.3 137.7 Potassium 5.6 H 5.8 H Chloride 109 H 108 H Carbon Dioxide 20 L 23 Anion Gap 10 7 BUN 47 H 45 H Creatinine 3.90 H 4.07 H Est GFR ( Amer) 15 L 14 L Est GFR (Non-Af Amer) 13 L 12 L Glucose 167 H 152 H Calcium 8.8 8.9 09/11/17 19:17 Creatine Kinase 277 H Impressions: Lower Extremity CT 09/11/17 00:00 IMPRESSION: Diffuse left foot and left ankle cellulitis Renal Ultrasound 09/13/17 00:00 IMPRESSION: Limited due to body habitus. No hydronephrosis Chest X-Ray 09/17/17 00:00 IMPRESSION: Left jugular central line tip superior vena cava Assessment & Plan - Diagnosis (1) Left leg cellulitis Is this a current diagnosis for this admission?: Yes Plan: Patient is status post left transmetatarsal amputation. Patient on cefepime. Will change antibiotics based on cultures. (2) Diabetes mellitus type 1.5 Is this a current diagnosis for this admission?: Yes Plan: Continue SSI. (3) Morbid obesity with BMI of 50.0-59.9, adult Is this a current diagnosis for this admission?: Yes Plan: Will eligibility counselor patient on weight loss. (4) Peripheral vascular disease Is this a current diagnosis for this admission?: Yes Plan: Patient will need follow up with vascular surgery. No arteriograms at this time due to ARF. (5) Sepsis affecting skin Is this a current diagnosis for this admission?: Yes Plan: Improving on current antibiotics cefepime. Will follow wound culture and adjust antibiotics accordingly. (6) Acute renal failure Qualifiers: Acute renal failure type: unspecified Qualified Code(s): N17.9 - Acute kidney failure, unspecified Is this a current diagnosis for this admission?: Yes Plan: Patient may have developed AIN as result of the antibiotics or ATN due to infections. Patient was not given contrast. Continue monitoring urine output. Continue IV fluids. Creatinine gradually improving. (7) Anemia Qualifiers: Anemia type: iron deficiency Iron deficiency anemia type: inadequate dietary iron intake Qualified Code(s): D50.8 - Other iron deficiency anemias Is this a current diagnosis for this admission?: Yes Plan: Stable continue to monitor. If tends down slightly, this may dilutional as patient is on fluids at 150cc/hr for renal failure. - Time Time Spent with patient: Less than 15 minutes Anticipated discharge: Home with Homehealth
--- NOTE | 2017-09-18 16:39 | PDOC PROGRESS REPORT ---
Subjective Progress Note for:: 09/18/17 Subjective:: Patient states that she is having pain in her left foot. Patient states she is doing well. Patient is wanting to go home. Reason For Visit: CELLULITIS Physical Exam Vital Signs: Temp Pulse Resp BP Pulse Ox 98.5 F 80 16 156/95 H 93 09/18/17 07:26 09/18/17 07:26 09/18/17 07:26 09/18/17 07:26 09/18/17 07:26 Intake & Output 09/17/17 09/18/17 09/19/17 06:59 06:59 06:59 Intake Total 1731 1870 300 Output Total 3650 2750 1100 Balance -3339 -530 -800 Weight 143.6 kg 142.3 kg General appearance: PRESENT: no acute distress, morbidly obese Head exam: PRESENT: normocephalic Eye exam: ABSENT: scleral icterus Neck exam: ABSENT: carotid bruit, JVD, lymphadenopathy, thyromegaly Respiratory exam: PRESENT: clear to auscultation mary. ABSENT: rales, rhonchi, wheezes Cardiovascular exam: PRESENT: RRR. ABSENT: diastolic murmur, rubs, systolic murmur GI/Abdominal exam: PRESENT: normal bowel sounds, soft. ABSENT: distended, guarding, mass, organolmegaly, rebound, tenderness Rectal exam: PRESENT: deferred Extremities exam: PRESENT: full ROM, pedal edema - transmetatarsal amputation of the left foot with wound vac., other. ABSENT: calf tenderness, clubbing Neurological exam: PRESENT: alert, awake, oriented to person, oriented to place , oriented to time, oriented to situation, CN II-XII grossly intact. ABSENT: motor sensory deficit Psychiatric exam: PRESENT: appropriate affect, normal mood. ABSENT: homicidal ideation, suicidal ideation Skin exam: PRESENT: dry, intact, warm. ABSENT: cyanosis, rash Results Laboratory Results: 09/18/17 05:15 09/18/17 08:00 09/18/17 09/18/17 09/18/17 05:15 05:15 08:00 WBC 11.9 H RBC 2.94 L Hgb 7.7 L Hct 23.3 L MCV 79 L MCH 26.4 L MCHC 33.2 RDW 16.0 H Plt Count 405 Sodium 139.3 137.7 Potassium 5.6 H 5.8 H Chloride 109 H 108 H Carbon Dioxide 20 L 23 Anion Gap 10 7 BUN 47 H 45 H Creatinine 3.90 H 4.07 H Est GFR ( Amer) 15 L 14 L Est GFR (Non-Af Amer) 13 L 12 L Glucose 167 H 152 H Calcium 8.8 8.9 09/11/17 19:17 Creatine Kinase 277 H Impressions: Lower Extremity CT 09/11/17 00:00 IMPRESSION: Diffuse left foot and left ankle cellulitis Renal Ultrasound 09/13/17 00:00 IMPRESSION: Limited due to body habitus. No hydronephrosis Chest X-Ray 09/17/17 00:00 IMPRESSION: Left jugular central line tip superior vena cava Assessment & Plan - Diagnosis (1) Left leg cellulitis Is this a current diagnosis for this admission?: Yes Plan: Patient is status post left transmetatarsal amputation. Pepotostrepstoccuss species is susceptible to ceftriaxone. Will discontinue cefepime and start ceftriaxone. (2) Diabetes mellitus type 1.5 Is this a current diagnosis for this admission?: Yes Plan: Continue SSI. (3) Morbid obesity with BMI of 50.0-59.9, adult Is this a current diagnosis for this admission?: Yes Plan: Will travel counselor [employer] patient on weight loss. (4) Peripheral vascular disease Is this a current diagnosis for this admission?: Yes Plan: Patient will need follow up with vascular surgery. No arteriograms at this time due to ARF. (5) Sepsis affecting skin Is this a current diagnosis for this admission?: Yes Plan: Improving. Patient currently on ceftriaxone. (6) Acute renal failure Qualifiers: Acute renal failure type: unspecified Qualified Code(s): N17.9 - Acute kidney failure, unspecified Is this a current diagnosis for this admission?: Yes Plan: Patient may have developed AIN as result of the antibiotics or ATN due to infections. Patient was not given contrast. Continue monitoring urine output. Continue IV fluids. Creatinine gradually improving. (7) Anemia Qualifiers: Anemia type: iron deficiency Iron deficiency anemia type: inadequate dietary iron intake Qualified Code(s): D50.8 - Other iron deficiency anemias Is this a current diagnosis for this admission?: Yes Plan: Stable continue to monitor. If tends down slightly, this may dilutional as patient is on fluids at 150cc/hr for renal failure. - Time Time Spent with patient: Less than 15 minutes Anticipated discharge: Home with Homehealth - Patient will need wound vac on discharge. Discharge per surgery.
[2017-09-18] MEDS: OXYCODONE HCL IR 5 MG TABLET PO PRN (18:22)
[2017-09-18] MEDS: SIMVASTATIN 40 MG TABLET PO SCH (22:02)
[2017-09-19] MEDS: OXYCODONE HCL IR 5 MG TABLET PO PRN ×2 (06:47→20:23)
[2017-09-19 09:39] LABS: ABSOLUTE BASOPHILS # (AUTO) 0.1 10^3/uL (0.0-0.2); ABSOLUTE EOSINOPHILS # (AUTO) 0.3 10^3/uL (0.0-0.6); ABSOLUTE LYMPHOCYTES (AUTO) 1.7 10^3/uL (0.5-4.7); ABSOLUTE MONOCYTES (AUTO) 0.9 10^3/uL (0.1-1.4); BASOPHILS % (AUTO) 0.7 % (0-2); EOSINOPHILS % (AUTO) 2.6 % (0-6); HEMATOCRIT 26.3 % (36.0-47.0); HGB HCT DIFFERENCE 0.7; LYMPHOCYTES % (AUTO) 15.6 % (13-45); MEAN CORPUSCULAR HEMOGLOBIN 27.2 pg (27.0-33.4); MEAN CORPUSCULAR HGB CONC 34.2 g/dL (32.0-36.0); MEAN CORPUSCULAR VOLUME 79 fl (80-97); MONOCYTES % (AUTO) 8.1 % (3-13); RED BLOOD COUNT 3.31 10^6/uL (3.72-5.28); RED CELL DISTRIBUTION WIDTH 16.2 % (11.5-14.0)
[2017-09-19] MEDS: FERROUS SULFATE 325 MG TABLET PO SCH ×3 (11:31→17:22)
[2017-09-19] MEDS: CEFTRIAXONE 2 GM/D5W RTU 2 GM/50 ML RTUPB IV SCH (11:31)
[2017-09-19] MEDS: FLUTICASONE/SALMETEROL DISKUS 500-50 MCG/DOSE IH SCH ×2 (11:32→21:09)
[2017-09-19] MEDS: ASPIRIN 81 MG TABLET, ENT COATED PO SCH (11:32)
[2017-09-19] MEDS: FAMOTIDINE 20 MG TABLET PO SCH (11:32)
[2017-09-19] MEDS: PREGABALIN 75 MG CAPSULE PO SCH ×2 (11:32→21:09)
[2017-09-19 20:39] LABS: ANION GAP 14 (5-19); BLOOD UREA NITROGEN 47 mg/dL (7-20); CALCIUM 9.1 mg/dL (8.4-10.2); CARBON DIOXIDE 23 mmol/L (22-30); CHLORIDE 105 mmol/L (98-107); CREATININE RESULT 3.47 mg/dL (0.52-1.25); GLUCOSE 191 mg/dL (75-110); POTASSIUM 5.7 mmol/L (3.6-5.0); SODIUM 142.1 mmol/L (137-145)
[2017-09-19] MEDS: ACETAMINOPHEN 325 MG TABLET PO PRN (21:09)
[2017-09-19] MEDS: SIMVASTATIN 40 MG TABLET PO SCH (21:09)
[2017-09-19] MEDS ORDERED: CLONIDINE HCL 0.1 MG TABLET PO ONE (21:45)
[2017-09-20] MEDS: INSULIN LISPRO 100 UNIT/ML 3 ML VIAL SUBCUT PRN ×5 (01:12→22:02)
[2017-09-20] MEDS: HYDROMORPHONE HCL INJ/PF 2 MG/ML AMPULE IV PRN (01:12)
[2017-09-20] MEDS: CLONIDINE HCL 0.1 MG TABLET PO SCH ×4 (05:11→23:42)
[2017-09-20] MEDS: OXYCODONE HCL IR 5 MG TABLET PO PRN ×3 (06:30→21:39)
--- NOTE | 2017-09-20 09:42 | PDOC PROGRESS REPORT ---
Subjective Progress Note for:: 09/19/17 Subjective:: Patient states that she is having pain in her left foot. Patient states she is doing well. Patient understands why she cannot go home. Reason For Visit: CELLULITIS Physical Exam Vital Signs: Temp Pulse Resp BP Pulse Ox 97.8 F 84 18 139/67 H 95 09/20/17 00:00 09/20/17 00:00 09/20/17 00:00 09/20/17 00:00 09/20/17 00:00 Intake & Output 09/19/17 09/20/17 09/21/17 06:59 06:59 06:59 Intake Total 1080 1640 Output Total 2900 1900 Balance -1820 -260 Weight 152.3 kg General appearance: PRESENT: no acute distress, morbidly obese Head exam: PRESENT: normocephalic Eye exam: ABSENT: scleral icterus Neck exam: ABSENT: carotid bruit, JVD, lymphadenopathy, thyromegaly Respiratory exam: PRESENT: clear to auscultation mary. ABSENT: rales, rhonchi, wheezes Cardiovascular exam: PRESENT: RRR. ABSENT: diastolic murmur, rubs, systolic murmur Pulses: PRESENT: normal dorsalis pedis pul Vascular exam: PRESENT: normal capillary refill GI/Abdominal exam: PRESENT: normal bowel sounds, soft. ABSENT: distended, guarding, mass, organolmegaly, rebound, tenderness Rectal exam: PRESENT: deferred Extremities exam: PRESENT: full ROM, pedal edema. ABSENT: calf tenderness, clubbing Neurological exam: PRESENT: alert, awake, oriented to person, oriented to place , oriented to time, oriented to situation, CN II-XII grossly intact. ABSENT: motor sensory deficit Psychiatric exam: PRESENT: appropriate affect, normal mood. ABSENT: homicidal ideation, suicidal ideation Skin exam: PRESENT: dry, intact, warm, other - skin on legs taught and shinny without hair. Wound vac on left foot.. ABSENT: cyanosis, rash Results Laboratory Results: 09/19/17 09:23 09/19/17 19:55 09/19/17 09/19/17 09:23 19:55 WBC 11.0 H RBC 3.31 L Hgb 9.0 L Hct 26.3 L MCV 79 L MCH 27.2 MCHC 34.2 RDW 16.2 H Plt Count 480 H Seg Neutrophils % 73.0 Lymphocytes % 15.6 Monocytes % 8.1 Eosinophils % 2.6 Basophils % 0.7 Absolute Neutrophils 8.0 Absolute Lymphocytes 1.7 Absolute Monocytes 0.9 Absolute Eosinophils 0.3 Absolute Basophils 0.1 Sodium 142.1 Potassium 5.7 H Chloride 105 Carbon Dioxide 23 Anion Gap 14 BUN 47 H Creatinine 3.47 H Est GFR ( Amer) 17 L Est GFR (Non-Af Amer) 14 L Glucose 191 H Calcium 9.1 09/11/17 19:17 Creatine Kinase 277 H Impressions: Lower Extremity CT 09/11/17 00:00 IMPRESSION: Diffuse left foot and left ankle cellulitis Renal Ultrasound 09/13/17 00:00 IMPRESSION: Limited due to body habitus. No hydronephrosis Chest X-Ray 09/17/17 00:00 IMPRESSION: Left jugular central line tip superior vena cava Assessment & Plan - Diagnosis (1) Acute renal failure Qualifiers: Acute renal failure type: unspecified Qualified Code(s): N17.9 - Acute kidney failure, unspecified Is this a current diagnosis for this admission?: Yes Plan: Patient may have developed AIN,ATN as result of the antibiotics and or infections. Patient was not given contrast. Continue monitoring urine output. Continue IV fluids. Creatinine gradually improving. (2) Left leg cellulitis Is this a current diagnosis for this admission?: Yes Plan: Patient is status post left transmetatarsal amputation. Pepotostrepstoccuss species is susceptible to ceftriaxone. Continue ceftriaxone. (3) Diabetes mellitus type 1.5 Is this a current diagnosis for this admission?: Yes Plan: Continue SSI. (4) Morbid obesity with BMI of 50.0-59.9, adult Is this a current diagnosis for this admission?: Yes Plan: Will student counselor patient on weight loss. (5) Peripheral vascular disease Is this a current diagnosis for this admission?: Yes Plan: Patient will need follow up with vascular surgery. No arteriograms at this time due to ARF. Continue aspirin and statin. (6) Sepsis affecting skin Is this a current diagnosis for this admission?: Yes Plan: Improving. Patient currently on ceftriaxone. (7) Anemia Qualifiers: Anemia type: iron deficiency Iron deficiency anemia type: inadequate dietary iron intake Qualified Code(s): D50.8 - Other iron deficiency anemias Is this a current diagnosis for this admission?: Yes Plan: Stable continue to monitor. If tends down slightly, this may dilutional as patient is on fluids at 150cc/hr for renal failure. Hemaglobin trending up. (8) Hyperkalemia Is this a current diagnosis for this admission?: Yes Plan: Due to JUANA, patient given kayexelate. - Time Time Spent with patient: Less than 15 minutes Anticipated discharge: Home with Homehealth - Inpatient Certification Medical Necessity: Need Close Monitoring Due to Risk of Patient Decompensation - Currently arrange for wound vac., Need for IV Antibiotics
[2017-09-20] MEDS ORDERED: SODIUM POLYSTYRENE SULFONATE 15 GM/60 ML PO ONE ×2 (10:00→16:31)
[2017-09-20] MEDS: FAMOTIDINE 20 MG TABLET PO SCH (10:35)
[2017-09-20] MEDS: FERROUS SULFATE 325 MG TABLET PO SCH ×3 (10:35→17:11)
[2017-09-20] MEDS: ASPIRIN 81 MG TABLET, ENT COATED PO SCH (10:35)
[2017-09-20] MEDS: PREGABALIN 75 MG CAPSULE PO SCH ×2 (10:35→21:39)
[2017-09-20] MEDS: CEFTRIAXONE 2 GM/D5W RTU 2 GM/50 ML RTUPB IV SCH (10:36)
[2017-09-20] MEDS: FLUTICASONE/SALMETEROL DISKUS 500-50 MCG/DOSE IH SCH ×2 (10:36→21:39)
[2017-09-20 11:21] LABS: ANION GAP 12 (5-19); BLOOD UREA NITROGEN 48 mg/dL (7-20); CARBON DIOXIDE 24 mmol/L (22-30); CHLORIDE 105 mmol/L (98-107); CREATININE RESULT 3.43 mg/dL (0.52-1.25); GLUCOSE 241 mg/dL (75-110); POTASSIUM 5.9 mmol/L (3.6-5.0); SODIUM 141.1 mmol/L (137-145)
[2017-09-20] MEDS: ONDANSETRON HCL INJ/PF 4 MG/2 ML SDV IV PRN (13:10)
[2017-09-20] MEDS: IPRATROPIUM/ALBUTEROL 0.5-2.5 MG/3 ML AMPUL NEB PRN ×2 (14:03→22:47)
--- NOTE | 2017-09-20 16:31 | PDOC PROGRESS REPORT ---
Subjective Progress Note for:: 09/20/17 Subjective:: Pt states that she does not know what is going on with her body. Pt states that doctor's are walking in her room but she does not understand what is happening. Nursing states that pt refused IVFs last night. Pt states that she has been urinating well. Pt states that her leg is a little swollen. Reason For Visit: CELLULITIS Physical Exam Vital Signs: Temp Pulse Resp BP Pulse Ox 97.6 F 87 16 153/75 H 98 09/20/17 12:00 09/20/17 14:05 09/20/17 14:05 09/20/17 12:00 09/20/17 12:00 Intake & Output 09/19/17 09/20/17 09/21/17 06:59 06:59 06:59 Intake Total 1080 1640 Output Total 2900 1900 Balance -1820 -260 Weight 152.3 kg General appearance: PRESENT: no acute distress, well-developed, well-nourished Head exam: PRESENT: atraumatic, normocephalic Eye exam: PRESENT: conjunctiva pink, EOMI. ABSENT: scleral icterus Ear exam: PRESENT: normal external ear exam Mouth exam: PRESENT: moist, tongue midline Neck exam: ABSENT: carotid bruit, JVD, lymphadenopathy, thyromegaly Respiratory exam: PRESENT: clear to auscultation mary. ABSENT: rales, rhonchi, wheezes Cardiovascular exam: PRESENT: RRR. ABSENT: diastolic murmur, rubs, systolic murmur Pulses: PRESENT: normal dorsalis pedis pul Vascular exam: PRESENT: normal capillary refill GI/Abdominal exam: PRESENT: normal bowel sounds, soft. ABSENT: distended, guarding, mass, organolmegaly, rebound, tenderness Rectal exam: PRESENT: deferred Extremities exam: PRESENT: full ROM, pedal edema, +1 edema, other - +left foot wound with wound VAC. ABSENT: calf tenderness, clubbing Neurological exam: PRESENT: alert, awake, oriented to person, oriented to place , oriented to time, oriented to situation, CN II-XII grossly intact. ABSENT: motor sensory deficit Psychiatric exam: PRESENT: appropriate affect, normal mood. ABSENT: homicidal ideation, suicidal ideation Skin exam: PRESENT: dry, intact, warm. ABSENT: cyanosis, rash Results Laboratory Results: 09/19/17 09:23 09/20/17 10:28 09/19/17 09/20/17 19:55 10:28 Sodium 142.1 141.1 Potassium 5.7 H 5.9 H Chloride 105 105 Carbon Dioxide 23 24 Anion Gap 14 12 BUN 47 H 48 H Creatinine 3.47 H 3.43 H Est GFR ( Amer) 17 L 18 L Est GFR (Non-Af Amer) 14 L 15 L Glucose 191 H 241 H Calcium 9.1 9.0 09/11/17 19:17 Creatine Kinase 277 H Impressions: Lower Extremity CT 09/11/17 00:00 IMPRESSION: Diffuse left foot and left ankle cellulitis Renal Ultrasound 09/13/17 00:00 IMPRESSION: Limited due to body habitus. No hydronephrosis Chest X-Ray 09/17/17 00:00 IMPRESSION: Left jugular central line tip superior vena cava Assessment & Plan - Diagnosis (1) Sepsis affecting skin Is this a current diagnosis for this admission?: Yes Plan: S/P Left transmetatarsal amputation with Peptostrep: Will continue Rocephin. (2) Diabetes mellitus type 1.5 Is this a current diagnosis for this admission?: Yes Plan: Continue SSI. (3) Hyperkalemia Is this a current diagnosis for this admission?: Yes Plan: Will give Kayexalate (4) Left leg cellulitis Is this a current diagnosis for this admission?: Yes Plan: S/P Left transmetatarsal amputation Peptostrep: Will continue Rocephin. (5) Morbid obesity with BMI of 50.0-59.9, adult Is this a current diagnosis for this admission?: Yes Plan: Encourage dietary changes. (6) Peripheral vascular disease Is this a current diagnosis for this admission?: Yes Plan: Pt will need to follow up with vascular surgery. (7) Acute renal failure Qualifiers: Acute renal failure type: unspecified Qualified Code(s): N17.9 - Acute kidney failure, unspecified Is this a current diagnosis for this admission?: Yes Plan: Secondary to AIN due to antibiotics: Will continue IVF. (8) Anemia Qualifiers: Anemia type: iron deficiency Iron deficiency anemia type: inadequate dietary iron intake Qualified Code(s): D50.8 - Other iron deficiency anemias Is this a current diagnosis for this admission?: Yes Plan: Will continue to monitor. - Time Time Spent with patient: Less than 15 minutes
[2017-09-20] MEDS: NORMAL SALINE 1000 ML 1,000 ML IV PRN (17:11)
--- NOTE | 2017-09-20 18:34 | PDOC PROGRESS REPORT ---
Subjective Progress Note for:: 09/20/17 Subjective:: Patient is without complaints Reason For Visit: CELLULITIS Physical Exam Vital Signs: Temp Pulse Resp BP Pulse Ox 97.5 F 82 12 151/78 H 99 09/20/17 15:18 09/20/17 15:18 09/20/17 15:18 09/20/17 15:18 09/20/17 15:18 Intake & Output 09/19/17 09/20/17 09/21/17 06:59 06:59 06:59 Intake Total 1080 1640 Output Total 2900 1900 Balance -1820 -260 Weight 152.3 kg General appearance: PRESENT: no acute distress Extremities exam: PRESENT: other - Wound VAC is in place on the left foot. Results Laboratory Results: 09/19/17 09:23 09/20/17 10:28 09/19/17 09/20/17 19:55 10:28 Sodium 142.1 141.1 Potassium 5.7 H 5.9 H Chloride 105 105 Carbon Dioxide 23 24 Anion Gap 14 12 BUN 47 H 48 H Creatinine 3.47 H 3.43 H Est GFR ( Amer) 17 L 18 L Est GFR (Non-Af Amer) 14 L 15 L Glucose 191 H 241 H Calcium 9.1 9.0 09/11/17 19:17 Creatine Kinase 277 H Impressions: Lower Extremity CT 09/11/17 00:00 IMPRESSION: Diffuse left foot and left ankle cellulitis Renal Ultrasound 09/13/17 00:00 IMPRESSION: Limited due to body habitus. No hydronephrosis Chest X-Ray 09/17/17 00:00 IMPRESSION: Left jugular central line tip superior vena cava Assessment & Plan - Plan Summary Plan Summary: Wound VAC is to be changed in the a.m.
[2017-09-20] MEDS: SIMVASTATIN 40 MG TABLET PO SCH (21:39)
[2017-09-21] MEDS: HYDROMORPHONE HCL INJ/PF 2 MG/ML AMPULE IV PRN ×3 (02:23→21:38)
[2017-09-21] MEDS: CLONIDINE HCL 0.1 MG TABLET PO SCH ×3 (05:58→20:10)
[2017-09-21 06:14] LABS: HEMATOCRIT 23.2 % (36.0-47.0); HGB HCT DIFFERENCE 0.5; MEAN CORPUSCULAR HEMOGLOBIN 27.4 pg (27.0-33.4); MEAN CORPUSCULAR HGB CONC 33.9 g/dL (32.0-36.0); MEAN CORPUSCULAR VOLUME 81 fl (80-97); RED BLOOD COUNT 2.87 10^6/uL (3.72-5.28); RED CELL DISTRIBUTION WIDTH 16.7 % (11.5-14.0)
[2017-09-21 06:34] LABS: ANION GAP 11 (5-19); BLOOD UREA NITROGEN 49 mg/dL (7-20); CALCIUM 9.3 mg/dL (8.4-10.2); CARBON DIOXIDE 24 mmol/L (22-30); CHLORIDE 108 mmol/L (98-107); CREATININE RESULT 3.43 mg/dL (0.52-1.25); GLUCOSE 165 mg/dL (75-110); POTASSIUM 5.8 mmol/L (3.6-5.0)
[2017-09-21 06:41] LABS: HEMOGLOBIN 7.9 g/dL (12.0-15.5)
[2017-09-21] MEDS: FERROUS SULFATE 325 MG TABLET PO SCH ×3 (11:09→20:32)
[2017-09-21] MEDS: FAMOTIDINE 20 MG TABLET PO SCH (11:10)
[2017-09-21] MEDS: CEFTRIAXONE 2 GM/D5W RTU 2 GM/50 ML RTUPB IV SCH (11:10)
[2017-09-21] MEDS: PREGABALIN 75 MG CAPSULE PO SCH ×2 (11:10→21:38)
[2017-09-21] MEDS: ASPIRIN 81 MG TABLET, ENT COATED PO SCH (11:10)
[2017-09-21] MEDS: FLUTICASONE/SALMETEROL DISKUS 500-50 MCG/DOSE IH SCH ×2 (11:11→21:38)
--- NOTE | 2017-09-21 13:30 | PDOC PROGRESS REPORT ---
Subjective Progress Note for:: 09/21/17 Reason For Visit: CELLULITIS No complaints Physical Exam Vital Signs: Temp Pulse Resp BP Pulse Ox 97.6 F 75 14 147/79 H 98 09/21/17 08:07 09/21/17 08:07 09/21/17 08:07 09/21/17 08:07 09/21/17 08:07 Intake & Output 09/20/17 09/21/17 09/22/17 06:59 06:59 06:59 Intake Total 1640 2138 Output Total 1900 1800 Balance -260 338 Weight 156.6 kg General appearance: PRESENT: no acute distress Musculoskeletal exam: PRESENT: other - VAC removed. Wound granulating, pink, nothing to debride; some superficial skin slough debrided. No foul smell Results Laboratory Results: 09/21/17 05:45 09/21/17 05:45 09/21/17 09/21/17 05:45 05:45 WBC 9.0 RBC 2.87 L Hgb 7.9 L Hct 23.2 L MCV 81 MCH 27.4 MCHC 33.9 RDW 16.7 H Plt Count 393 Sodium 143.0 Potassium 5.8 H Chloride 108 H Carbon Dioxide 24 Anion Gap 11 BUN 49 H Creatinine 3.43 H Est GFR ( Amer) 18 L Est GFR (Non-Af Amer) 15 L Glucose 165 H Calcium 9.3 09/11/17 19:17 Creatine Kinase 277 H Impressions: Lower Extremity CT 09/11/17 00:00 IMPRESSION: Diffuse left foot and left ankle cellulitis Renal Ultrasound 09/13/17 00:00 IMPRESSION: Limited due to body habitus. No hydronephrosis Chest X-Ray 09/17/17 00:00 IMPRESSION: Left jugular central line tip superior vena cava Assessment & Plan - Diagnosis (1) Left leg cellulitis Is this a current diagnosis for this admission?: Yes Plan: Impression: Osteomyelitis left foot status post near-complete transmetatarsal amputation. Clinically improved with wound VAC intravenous antibiotics. Recommendations: 1. Continue wound VAC therapy. 2. Suggested the patient undergo completion tarsal amputation with removal of left fifth toe, facilitating primary closure by bringing up a plantar flap area I believe this can be done later this week. Patient is in agreement.
[2017-09-21] MEDS: OXYCODONE HCL IR 5 MG TABLET PO PRN (16:47)
[2017-09-21] MEDS: ONDANSETRON HCL INJ/PF 4 MG/2 ML SDV IV PRN (16:48)
[2017-09-21] MEDS: NORMAL SALINE 1000 ML 1,000 ML IV PRN (16:49)
--- NOTE | 2017-09-21 18:02 | PDOC PROGRESS REPORT ---
Subjective Progress Note for:: 09/21/17 Subjective:: Pt states that she is doing ok. Reason For Visit: CELLULITIS Physical Exam Vital Signs: Temp Pulse Resp BP Pulse Ox 97.6 F 75 14 147/79 H 98 09/21/17 08:07 09/21/17 08:07 09/21/17 08:07 09/21/17 08:07 09/21/17 08:07 Intake & Output 09/20/17 09/21/17 09/22/17 06:59 06:59 06:59 Intake Total 1640 2138 Output Total 1900 1800 Balance -260 338 Weight 156.6 kg General appearance: PRESENT: no acute distress, morbidly obese, well-developed, well-nourished Head exam: PRESENT: atraumatic, normocephalic Eye exam: PRESENT: conjunctiva pink, EOMI. ABSENT: scleral icterus Ear exam: PRESENT: normal external ear exam Mouth exam: PRESENT: moist, tongue midline Neck exam: ABSENT: carotid bruit, JVD, lymphadenopathy, thyromegaly Respiratory exam: PRESENT: clear to auscultation mary. ABSENT: rales, rhonchi, wheezes Cardiovascular exam: PRESENT: RRR. ABSENT: diastolic murmur, rubs, systolic murmur Pulses: PRESENT: normal dorsalis pedis pul Vascular exam: PRESENT: normal capillary refill GI/Abdominal exam: PRESENT: normal bowel sounds, soft. ABSENT: distended, guarding, mass, organolmegaly, rebound, tenderness Rectal exam: PRESENT: deferred Extremities exam: PRESENT: full ROM, +1 edema - +bilateral lower ext, other - + left foot wound with wound VAC. ABSENT: calf tenderness, clubbing Musculoskeletal exam: PRESENT: full ROM Neurological exam: PRESENT: alert, awake, oriented to person, oriented to place , oriented to time, oriented to situation, CN II-XII grossly intact. ABSENT: motor sensory deficit Psychiatric exam: PRESENT: appropriate affect, normal mood. ABSENT: homicidal ideation, suicidal ideation Skin exam: PRESENT: dry, intact, warm, other - + left foot wound with wound VAC in place.. ABSENT: cyanosis Results Laboratory Results: 09/21/17 05:45 09/21/17 05:45 09/21/17 09/21/17 05:45 05:45 WBC 9.0 RBC 2.87 L Hgb 7.9 L Hct 23.2 L MCV 81 MCH 27.4 MCHC 33.9 RDW 16.7 H Plt Count 393 Sodium 143.0 Potassium 5.8 H Chloride 108 H Carbon Dioxide 24 Anion Gap 11 BUN 49 H Creatinine 3.43 H Est GFR ( Amer) 18 L Est GFR (Non-Af Amer) 15 L Glucose 165 H Calcium 9.3 09/11/17 19:17 Creatine Kinase 277 H Impressions: Lower Extremity CT 09/11/17 00:00 IMPRESSION: Diffuse left foot and left ankle cellulitis Renal Ultrasound 09/13/17 00:00 IMPRESSION: Limited due to body habitus. No hydronephrosis Chest X-Ray 09/17/17 00:00 IMPRESSION: Left jugular central line tip superior vena cava Assessment & Plan - Diagnosis (1) Sepsis affecting skin Is this a current diagnosis for this admission?: Yes Plan: S/P Left transmetatarsal amputation with Peptostrep: Will continue Rocephin. Surgery planning to take pt back to OR. (2) Diabetes mellitus type 1.5 Is this a current diagnosis for this admission?: Yes Plan: Continue SSI. (3) Hyperkalemia Is this a current diagnosis for this admission?: Yes Plan: Will give Kayexalate again today. Will place on Low Potassium diet. (4) Left leg cellulitis Is this a current diagnosis for this admission?: Yes Plan: S/P Left transmetatarsal amputation Peptostrep: Will continue Rocephin. (5) Morbid obesity with BMI of 50.0-59.9, adult Is this a current diagnosis for this admission?: Yes Plan: Encourage dietary changes. (6) Peripheral vascular disease Is this a current diagnosis for this admission?: Yes Plan: Pt will need to follow up with vascular surgery. (7) Acute renal failure Qualifiers: Acute renal failure type: unspecified Qualified Code(s): N17.9 - Acute kidney failure, unspecified Is this a current diagnosis for this admission?: Yes Plan: Secondary to AIN due to antibiotics: Will continue IVF. Will consult Renal to follow and evaluate pt. (8) Anemia Qualifiers: Anemia type: iron deficiency Iron deficiency anemia type: inadequate dietary iron intake Qualified Code(s): D50.8 - Other iron deficiency anemias Is this a current diagnosis for this admission?: Yes Plan: Will continue to monitor. - Time Time Spent with patient: 15-24 minutes
[2017-09-21] MEDS: INSULIN LISPRO 100 UNIT/ML 3 ML VIAL SUBCUT PRN ×2 (18:41→21:39)
[2017-09-21] MEDS ORDERED: SODIUM POLYSTYRENE SULFONATE 15 GM/60 ML PO ONE (19:00)
--- NOTE | 2017-09-21 19:39 | PDOC CONSULTATION ---
Consultation Consult Date: 09/21/17 Attending physician:: QUAN BAINS Consult reason:: I was asked by Dr. Bains to see this patient because of worsening kidney function and hyperkalemia. History of Present Illness Admission Date/PCP: 09/11/17 18:38 BRANDI LADD MD History of Present Illness: RUTH WOOD is a 42 year old female with underlying diabetes. She was admitted to the hospital on 06 September for left lower extremity cellulitis. She was discharged on 09 September. During her last hospitalization she was treated with IV vancomycin and Zosyn. She was discharged on Augmentin. During her last hospitalization she had lower extremity vascular structures. These were fairly unremarkable, but, there were some abnormalities in the vascular structures of the left leg. The patient had an MRI of the left lower extremity that did not show osteomyelitis or abscess formation. Since the patient was discharged she felt well until a day prior to admission. She woke up she started to have more pain in her left foot. She also had a small blister on the top of her foot. This has gotten progressively larger. She also feels that the pain is getting progressively worse. She comes into the emergency department due to concern of progressive infection. Patient was subsequently evaluated by surgery and has had left foot debridement and left metatarsal amputation on September 13. She was initially being given IV Zosyn and IV vancomycin changed later to cefepime and currently ceftriaxone. Patient continues to have wound VAC on her left foot. Surgery is considering taking the patient back to the OR. During his admission the patient also had worsening kidney function. On admission she had a BUN of 9 and creatinine of 0.98 with estimated GFR greater than 60. On September 13 she had a BUN of 21, creatinine 3.04, and EGFR of 22. During that time her vancomycin trough level was 32.2 and a repeat one the next day was 34.6. Her blood pressure was also relatively low around this. With blood pressure of 100/65 at the lowest. Blood pressure improved subsequently. Vancomycin and Zosyn were also discontinued. Patient remains to have good urine output. Patient tells me that she has been itching since admission and tells me that she might be having rash on her back but they did not see any rash anywhere in her body today. On September 16 her BUN was 38, creatinine 4.51 and EGFR of 13. A 24-hour urine protein was 441. Today she had a BUN of 49, creatinine of 3.43, and EGFR of 18. Patient also has been having hyperkalemia being treated with Kayexalate. She continues to be on IV fluids. She tells me that she did not have any history of kidney problems in the past no history of any kidney stones. She is not aware of any known proteinuria nor microhematuria. She denies any problems with urination. Currently she is still having some left foot pain. She has a little bit of nausea and occasional vomiting but her appetite is good. He has a little bit of cough with mild production of sputum. She denies any chest pains no shortness of breath. Past Medical History Cardiac Medical History: Reports: Hyperlipidemia, Hypertension-primary Pulmonary Medical History: Reports: Asthma, Sleep Apnea - She wears CPAP at home Neurological Medical History: Reports: Other - History of Guillain-Vleazquez syndrome in 2013 Endocrine Medical History: Reports: Diabetes Mellitus Type 2 Complications of Diabetes: Reports: Autonomic Neuropathy, Retinopathy Past Surgical History Past Surgical History: Reports: Section - Twice, Orthopedic Surgery - Heel spur surgery, bilateral carpal tunnel surgery, Other - Right eye surgery as a child Social History Information Source: Patient Lives with: Family Smoking Status: Current Some Day Smoker Cigarettes Packs Per Day: 0.5 Frequency of Alcohol Use: Occasional Hx Recreational Drug Use: No Hx Prescription Drug Abuse: No - Advance Directive Resuscitation Status: Full Code Family History Family History: CAD - Maternal grandmother, DM - Maternal grandmother, Hypertension - Mother's side Parental Family History Reviewed: Yes Children Family History Reviewed: Yes Sibling(s) Family History Reviewed.: Yes Medication/Allergy Home Medications: Albuterol Sulfate [Proair HFA Inhalation Aerosol 8.5 gm MDI] 2 puff IH Q6HP PRN 09/06/17 Aspirin [Aspirin EC] 81 mg PO DAILY 09/06/17 Fluticasone/Salmeterol [Advair 500-50 Diskus 28 Dose] 1 puff IH Q12 09/06/17 Insulin Aspart [Novolog Insulin (Aspart) 100 unit/mL] 0 units SUBCUT .SLIDING SCALE 09/06/17 Insulin Detemir [Levemir Flextouch] 76 units SUBCUT QHS 09/06/17 Lisinopril/Hydrochlorothiazide [Lisinopril-Hctz 20-25 mg Tab] 1 tab PO DAILY Metformin HCl [Glucophage] 850 mg PO BIDBS 09/06/17 Omeprazole 20 mg PO BID 09/06/17 Simvastatin [Zocor 40 mg Tablet] 40 mg PO QHS 09/06/17 Amoxicillin/Potassium Clav [Augmentin 875-125 Tablet] 1 each PO BID #20 tablet 09/09/17 Canagliflozin [Invokana] 300 mg PO [id number] 09/11/17 Cetirizine HCl [Zyrtec 10 mg Tablet] 10 mg PO DAILY 09/11/17 Dulaglutide [Trulicity] 0.75 mg SQ SA@1000 09/11/17 Furosemide 20 mg PO DAILY 09/11/17 Oxycodone HCl/Acetaminophen [Percocet 7.5-325 mg Tablet] 1 tab PO Q8HP PRN 09/11 Pregabalin [Lyrica] 150 mg PO Q8HP PRN 09/11/17 Allergies/Adverse Reactions: No Known Allergies Allergy (Verified 09/11/17 16:27) Review of Systems All systems: reviewed and no additional remarkable complaints except as stated Review of Systems: Constitutional: ABSENT: chills, fatigue, fever(s), headache(s), weight gain, weight loss Eyes: Patient unable to see in her right eye Ears: ABSENT: hearing changes Cardiovascular: ABSENT: chest pain, dyspnea on exertion, edema, orthropnea, palpitations Respiratory: ABSENT: Dyspnea, hemoptysis; positive mild productive cough Gastrointestinal: ABSENT: abdominal pain, constipation, diarrhea, hematemesis, hematochezia; admits occasional nausea, and vomiting Genitourinary: ABSENT: dysuria, hematuria Musculoskeletal: ABSENT: joint swelling Integumentary: ABSENT: rash, wounds; positive pruritus Neurological: ABSENT: abnormal gait, abnormal speech, confusion, dizziness, focal weakness, numbness, syncope Psychiatric: ABSENT: anxiety, depression Endocrine: ABSENT: cold intolerance, heat intolerance, polydipsia, polyuria Hematologic/Lymphatic: ABSENT: easy bleeding, easy bruising, lymphadenopathy Physical Exam Vital Signs: Temp Pulse Resp BP Pulse Ox 97.6 F 75 14 147/79 H 98 09/21/17 08:07 09/21/17 08:07 09/21/17 08:07 09/21/17 08:07 09/21/17 08:07 Intake & Output 09/20/17 09/21/17 09/22/17 06:59 06:59 06:59 Intake Total 1640 2138 Output Total 1900 1800 Balance -260 338 Weight 156.6 kg Exam: General appearance: no acute distress, cooperative, well-developed, well- nourished Head exam: PRESENT: atraumatic, normocephalic Eye exam: PRESENT: Conjunctiva pale, EOMI, PERRLA. ABSENT: conjunctival injection, scleral icterus Mouth exam: PRESENT: moist, neck supple, tongue midline Neck exam: PRESENT: full ROM. Left IJ central line ABSENT: carotid bruit, JVD, lymphadenopathy, thyromegaly Respiratory exam: PRESENT: clear to auscultation bilaterally. ABSENT: rales, rhonchi, stridor, wheezes Cardiovascular exam: PRESENT: RRR, +S1, +S2. ABSENT: systolic murmur Pulses: PRESENT: normal radial pulses, normal dorsalis pedis pulses GI/Abdominal exam: PRESENT: normal bowel sounds, soft. Obese ABSENT: guarding, mass, tenderness Rectal exam: deferred Extremities exam: PRESENT: full ROM. Grade 1 bilateral lower extremity pitting ABSENT: calf tenderness Musculoskeletal: PRESENT: full ROM. Left foot with surgical site and one back ABSENT: deformity Neurological exam: PRESENT: alert, Awake, Oriented to person, Oriented to place , Oriented to time, reflexes normal, CN II-XII grossly intact. ABSENT: motor sensory deficit Psychiatric exam: PRESENT: appropriate affect, normal mood. ABSENT: homicidal ideation, suicidal ideation Skin exam: PRESENT: intact, dry, warm. ABSENT: rash Results Laboratory Results: 09/21/17 05:45 09/21/17 05:45 09/21/17 09/21/17 05:45 05:45 WBC 9.0 RBC 2.87 L Hgb 7.9 L Hct 23.2 L MCV 81 MCH 27.4 MCHC 33.9 RDW 16.7 H Plt Count 393 Sodium 143.0 Potassium 5.8 H Chloride 108 H Carbon Dioxide 24 Anion Gap 11 BUN 49 H Creatinine 3.43 H Est GFR ( Amer) 18 L Est GFR (Non-Af Amer) 15 L Glucose 165 H Calcium 9.3 09/11/17 19:17 Creatine Kinase 277 H 09/07/17 04:16 BUN 23 H Creatinine 1.61 H Est GFR ( Amer) 42 L Impressions: Lower Extremity CT 09/11/17 00:00 IMPRESSION: Diffuse left foot and left ankle cellulitis Renal Ultrasound 09/13/17 00:00 IMPRESSION: Limited due to body habitus. No hydronephrosis Chest X-Ray 09/17/17 00:00 IMPRESSION: Left jugular central line tip superior vena cava Assessment & Plan - Diagnosis (1) Acute kidney injury Is this a current diagnosis for this admission?: Yes Plan: Possibly with underlying chronic kidney disease. Patient is nonoliguric. She has minimal proteinuria. This is most likely secondary to acute tubular necrosis secondary to vancomycin toxicity due to temporal relation of worsening kidney function and toxic vancomycin levels. Some exacerbating factors include relative hypotensive episode and current infection. Patient's kidney function is currently improving with discontinuation of vancomycin, IV fluids, and discontinuation of other potential nephrotoxic medications including lisinopril and metformin. Treatment of current infection is also helpful. I expect the patient's kidney function to continue to improve if everything else continues to be the same in the next few days sometimes few weeks. At this time I think she is on the right direction. Patient does not require any kind of renal replacement therapy at this time. Continue to monitor kidney function and avoid further nephrotoxic medications. (2) Hyperkalemia Is this a current diagnosis for this admission?: Yes Plan: Due to [place] I. Kayexalate has been ordered for tonight. If she continues to have high potassium I will initiate veltassa tomorrow. Continue low potassium diet. (3) Cellulitis of left foot Is this a current diagnosis for this admission?: Yes Plan: Status post left transmetatarsal amputation currently on wound VAC and IV antibiotics. Followed by surgeon. (4) Anemia Qualifiers: Anemia type: iron deficiency Iron deficiency anemia type: inadequate dietary iron intake Qualified Code(s): D50.8 - Other iron deficiency anemias Is this a current diagnosis for this admission?: Yes Plan: This seems to be acutely exacerbated on top of chronic anemia. Possible acute causative factors include IV fluid dilutional effect, blood loss from surgery and needs to rule out any occult GI bleeding. Underlying chronic anemia can be partially due to a possible chronic kidney disease and chronic illness. (5) Diabetes mellitus type 1.5 Is this a current diagnosis for this admission?: Yes Plan: Suboptimally controlled. (6) Hypertension Qualifiers: Hypertension type: essential hypertension Qualified Code(s): I10 - Essential (primary) hypertension Is this a current diagnosis for this admission?: Yes Plan: Suboptimally controlled. In addition to scheduled clonidine, amlodipine can be added. - Notes Notes: Impression and plan discussed with patient. We will follow the patient with you. Thank you very much for this consultation. - Time Time Spent: Greater than 70 Minutes
[2017-09-21] MEDS: SIMVASTATIN 40 MG TABLET PO SCH (21:38)
[2017-09-22] MEDS: CLONIDINE HCL 0.1 MG TABLET PO SCH ×5 (01:27→23:27)
[2017-09-22] MEDS ORDERED: LANSOPRAZOLE 30 MG TAB.RAP.DR PO ONE (03:30)
[2017-09-22 06:30] LABS: ANION GAP 10 (5-19); BLOOD UREA NITROGEN 42 mg/dL (7-20); CALCIUM 8.8 mg/dL (8.4-10.2); CARBON DIOXIDE 26 mmol/L (22-30); CHLORIDE 108 mmol/L (98-107); CREATININE RESULT 3.03 mg/dL (0.52-1.25); GLUCOSE 142 mg/dL (75-110); POTASSIUM 5.1 mmol/L (3.6-5.0); SODIUM 143.9 mmol/L (137-145)
[2017-09-22] MEDS: HYDROMORPHONE HCL INJ/PF 2 MG/ML AMPULE IV PRN ×2 (09:09→23:27)
[2017-09-22] MEDS: PREGABALIN 75 MG CAPSULE PO SCH ×2 (12:26→22:38)
[2017-09-22] MEDS: FAMOTIDINE 20 MG TABLET PO SCH (12:27)
[2017-09-22] MEDS: CEFTRIAXONE 2 GM/D5W RTU 2 GM/50 ML RTUPB IV SCH (12:27)
[2017-09-22] MEDS: ASPIRIN 81 MG TABLET, ENT COATED PO SCH (12:27)
[2017-09-22] MEDS: FERROUS SULFATE 325 MG TABLET PO SCH ×3 (12:29→18:03)
[2017-09-22] MEDS: FLUTICASONE/SALMETEROL DISKUS 500-50 MCG/DOSE IH SCH ×2 (12:32→22:38)
[2017-09-22] MEDS: ONDANSETRON HCL INJ/PF 4 MG/2 ML SDV IV PRN (12:47)
[2017-09-22] MEDS ORDERED: DEXTROSE 40% GEL 15 GM TUBE PO PRN ×2 (15:24)
[2017-09-22] MEDS ORDERED: DEXTROSE 50%-WATER 25 GM/50 ML DISP.SYRIN IV PRN ×2 (15:24)
[2017-09-22] MEDS ORDERED: GLUCAGON,HUMAN RECOMB 1 MG INJ SUBCUT PRN (15:24)
--- NOTE | 2017-09-22 15:31 | PDOC PROGRESS REPORT ---
Subjective Progress Note for:: 09/22/17 Subjective:: Patient is without complaints Reason For Visit: CELLULITIS Physical Exam Vital Signs: Temp Pulse Resp BP Pulse Ox 97.4 F 71 20 139/80 H 98 09/22/17 12:00 09/22/17 12:00 09/22/17 12:00 09/22/17 12:00 09/22/17 12:00 Intake & Output 09/21/17 09/22/17 09/23/17 06:59 06:59 06:59 Intake Total 2138 3930 Output Total 1800 1900 Balance 338 2030 Weight 156.6 kg 156.2 kg General appearance: PRESENT: no acute distress Extremities exam: PRESENT: other - . Dressing removed. Wound is granulating nicely, post transmetatarsal amputation Results Laboratory Results: 09/21/17 05:45 09/22/17 05:55 09/21/17 09/22/17 20:43 05:55 Sodium 143.9 Potassium 5.1 H 5.1 H Chloride 108 H Carbon Dioxide 26 Anion Gap 10 BUN 42 H Creatinine 3.03 H Est GFR ( Amer) 20 L Est GFR (Non-Af Amer) 17 L Glucose 142 H Calcium 8.8 09/11/17 19:17 Creatine Kinase 277 H Impressions: Lower Extremity CT 09/11/17 00:00 IMPRESSION: Diffuse left foot and left ankle cellulitis Renal Ultrasound 09/13/17 00:00 IMPRESSION: Limited due to body habitus. No hydronephrosis Chest X-Ray 09/17/17 00:00 IMPRESSION: Left jugular central line tip superior vena cava Assessment & Plan - Plan Summary Plan Summary: We will take patient to the operating room in the a.m. for (1.) Amputation of left fifth toe and to. (2.) Closure of open wound, post transmetatarsal amputation.
[2017-09-22] MEDS ORDERED: PROMETHAZINE HCL 25 MG TABLET PO PRN (17:24)
[2017-09-22] MEDS ORDERED: FUROSEMIDE INJ/PF 40 MG/4 ML SDV IV ONE (17:36)
--- NOTE | 2017-09-22 17:40 | PDOC PROGRESS REPORT ---
Subjective Progress Note for:: 09/22/17 Subjective:: Patient is doing fine except that she complains of lower extremity swelling. Otherwise she does not have any nausea or vomiting and she is making good amount of urine output. Reason For Visit: CELLULITIS Physical Exam Vital Signs: Temp Pulse Resp BP Pulse Ox 97.6 F 73 20 135/67 H 98 09/22/17 16:00 09/22/17 16:00 09/22/17 16:00 09/22/17 16:00 09/22/17 16:00 Intake & Output 09/21/17 09/22/17 09/23/17 06:59 06:59 06:59 Intake Total 2138 3930 Output Total 1800 1900 Balance 338 2030 Weight 156.6 kg 156.2 kg Exam: General appearance: PRESENT: no acute distress, cooperative, well-developed, well-nourished Head exam: PRESENT: atraumatic, normocephalic Eye exam: PRESENT: conjunctiva pale, PERRLA. ABSENT: scleral icterus Neck exam: ABSENT: JVD Respiratory exam: PRESENT: Normal breath sounds. ABSENT: crackles, rales, rhonchi, unlabored, wheezes Cardiovascular exam: PRESENT: Regular rate rhythm -+S1, +S2. ABSENT: diastolic murmur, systolic murmur GI/Abdominal exam: PRESENT: normal bowel sounds, soft. ABSENT: guarding, mass, tenderness Extremities exam: She has worse grade 2 bilateral lower extremity pitting edema Neurological exam: PRESENT: alert, awake, oriented to person, place and time. Skin exam: PRESENT: dry, warm, Results Laboratory Results: 09/21/17 05:45 09/22/17 05:55 09/21/17 09/22/17 20:43 05:55 Sodium 143.9 Potassium 5.1 H 5.1 H Chloride 108 H Carbon Dioxide 26 Anion Gap 10 BUN 42 H Creatinine 3.03 H Est GFR ( Amer) 20 L Est GFR (Non-Af Amer) 17 L Glucose 142 H Calcium 8.8 09/11/17 19:17 Creatine Kinase 277 H Impressions: Lower Extremity CT 09/11/17 00:00 IMPRESSION: Diffuse left foot and left ankle cellulitis Renal Ultrasound 09/13/17 00:00 IMPRESSION: Limited due to body habitus. No hydronephrosis Chest X-Ray 09/17/17 00:00 IMPRESSION: Left jugular central line tip superior vena cava Assessment & Plan - Diagnosis (1) Acute kidney injury Is this a current diagnosis for this admission?: Yes Plan: Possibly with underlying chronic kidney disease. Patient is nonoliguric. She has minimal proteinuria. This is most likely secondary to acute tubular necrosis secondary to vancomycin toxicity due to temporal relation of worsening kidney function and toxic vancomycin levels. Some exacerbating factors include relative hypotensive episode and current infection. Patient's kidney function is currently improving with discontinuation of vancomycin, IV fluids, and discontinuation of other potential nephrotoxic medications including lisinopril and metformin. Treatment of current infection is also helpful. I expect the patient's kidney function to continue to improve if everything else continues to be the same in the next few days sometimes few weeks. At this time I think she is on the right direction. Patient does not require any kind of renal replacement therapy at this time. Continue to monitor kidney function and avoid further nephrotoxic medications. Due to increasing lower extremity edema and good oral intake we will stop the patient's IV fluids. I will give her a dose of Lasix 40 mg IV now. (2) Hyperkalemia Is this a current diagnosis for this admission?: Yes Plan: Improving. Continue low potassium diet. (3) Cellulitis of left foot Is this a current diagnosis for this admission?: Yes Plan: Status post left transmetatarsal amputation currently on wound VAC and IV antibiotics. Followed by surgeon. Patient is planned to be taken back to the OR tomorrow for left fifth toe amputation and closure of the wound. (4) Anemia Qualifiers: Anemia type: iron deficiency Iron deficiency anemia type: inadequate dietary iron intake Qualified Code(s): D50.8 - Other iron deficiency anemias Is this a current diagnosis for this admission?: Yes Plan: This seems to be acutely exacerbated on top of chronic anemia. Possible acute causative factors include IV fluid dilutional effect, and blood loss from surgery. No evidence of any occult GI bleeding as a stool for occult blood is negative. Underlying chronic anemia can be partially due to a possible chronic kidney disease and chronic illness. We will check iron panel tomorrow. (5) Diabetes mellitus type 1.5 Is this a current diagnosis for this admission?: Yes Plan: Suboptimally controlled. (6) Hypertension Qualifiers: Hypertension type: essential hypertension Qualified Code(s): I10 - Essential (primary) hypertension Is this a current diagnosis for this admission?: Yes Plan: Suboptimally controlled. In addition to scheduled clonidine, amlodipine can be added. - Time Time with patient: 15-25 minutes
[2017-09-22] MEDS: INSULIN LISPRO 100 UNIT/ML 3 ML VIAL SUBCUT PRN (18:03)
--- NOTE | 2017-09-22 18:28 | PDOC PROGRESS REPORT ---
Subjective Progress Note for:: 09/22/17 Subjective:: The patient is resting in her bed. She states that overall she just is not feeling well. She is a little nauseated today. She also is quite depressed over her overall situation. Nursing staff reports that she is going to go back for further surgery tomorrow. She denies fever chills. No chest pain or heart palpitations. She does have nausea but no vomiting. No abdominal pain. No dysuria, frequency or hematuria Reason For Visit: CELLULITIS Physical Exam Vital Signs: Temp Pulse Resp BP Pulse Ox 97.6 F 73 20 135/67 H 98 09/22/17 16:00 09/22/17 16:00 09/22/17 16:00 09/22/17 16:00 09/22/17 16:00 Intake & Output 09/21/17 09/22/17 09/23/17 06:59 06:59 06:59 Intake Total 2138 3930 902 Output Total 1800 1900 Balance 338 2030 902 Weight 156.6 kg 156.2 kg General appearance: PRESENT: no acute distress, obese, well-developed, well- nourished Head exam: PRESENT: atraumatic, normocephalic Mouth exam: PRESENT: moist, tongue midline Respiratory exam: PRESENT: clear to auscultation mary. ABSENT: rales, rhonchi, wheezes Cardiovascular exam: PRESENT: RRR. ABSENT: diastolic murmur, rubs, systolic murmur GI/Abdominal exam: PRESENT: normal bowel sounds, soft. ABSENT: distended, guarding, mass, organolmegaly, rebound, tenderness Extremities exam: PRESENT: other - Left foot has a bandage in place that was not removed as of the time of this dictation. ABSENT: calf tenderness Musculoskeletal exam: PRESENT: ambulatory Psychiatric exam: PRESENT: appropriate affect, depressed Skin exam: PRESENT: dry, intact, warm, other - Again left foot with a bandage in place that was not removed as of the time of this dictation.. ABSENT: cyanosis, rash Results Laboratory Results: 09/21/17 05:45 09/22/17 05:55 09/21/17 09/22/17 20:43 05:55 Sodium 143.9 Potassium 5.1 H 5.1 H Chloride 108 H Carbon Dioxide 26 Anion Gap 10 BUN 42 H Creatinine 3.03 H Est GFR ( Amer) 20 L Est GFR (Non-Af Amer) 17 L Glucose 142 H Calcium 8.8 09/11/17 19:17 Creatine Kinase 277 H Impressions: Lower Extremity CT 09/11/17 00:00 IMPRESSION: Diffuse left foot and left ankle cellulitis Renal Ultrasound 09/13/17 00:00 IMPRESSION: Limited due to body habitus. No hydronephrosis Chest X-Ray 09/17/17 00:00 IMPRESSION: Left jugular central line tip superior vena cava Assessment & Plan - Diagnosis (1) Sepsis Plan: Present on admission secondary to underlying cellulitis and osteomyelitis. Resolved (2) Osteomyelitis Plan: Of the left foot status post transmetatarsal amputation. Per the nursing staff she will likely go back to the operating room tomorrow. Currently on 2 g of IV Rocephin daily based on culture results. (3) Cellulitis of left foot Is this a current diagnosis for this admission?: Yes Plan: Resolving. Continue IV Rocephin. (4) Acute kidney injury Is this a current diagnosis for this admission?: Yes Plan: Secondary to ATN from sepsis and nephrotoxic medications. Her vancomycin has been stopped and her kidney function is slowly improving. Do believe this is what is causing her nausea. Her kidney function is improving. Creatinine today is 3.03. Her creatinine peaked at 4.5. Nephrology is following and we certainly appreciate their input. (5) Hyperkalemia Is this a current diagnosis for this admission?: Yes Plan: Secondary to acute renal failure. Improving (6) Morbid obesity with BMI of 50.0-59.9, adult Is this a current diagnosis for this admission?: Yes Plan: Certainly she would benefit from weight loss. (7) Peripheral vascular disease Is this a current diagnosis for this admission?: Yes Plan: She will need to follow-up as an outpatient with vascular surgery. (8) Acute renal failure Qualifiers: Acute renal failure type: unspecified Qualified Code(s): N17.9 - Acute kidney failure, unspecified Is this a current diagnosis for this admission?: Yes (9) Anemia Qualifiers: Anemia type: iron deficiency Iron deficiency anemia type: inadequate dietary iron intake Qualified Code(s): D50.8 - Other iron deficiency anemias Is this a current diagnosis for this admission?: Yes Plan: Stable. Nephrology is following. (10) Hyponatremia Plan: Resolved (11) Diabetes mellitus type 1.5 Is this a current diagnosis for this admission?: Yes Plan: Continue sliding scale insulin. I will see how her blood sugars do over the next 24 hours and will consider starting Lantus. (12) Hypertension Qualifiers: Hypertension type: essential hypertension Qualified Code(s): I10 - Essential (primary) hypertension Is this a current diagnosis for this admission?: Yes Plan: Stable - Time Time Spent with patient: 25-34 minutes - Inpatient Certification Medical Necessity: Need for IV Antibiotics, Other - Inpatient hospitalization remains necessary. The patient sounds like she needs further surgical intervention for her osteomyelitis. She is requiring parenteral therapies. She has acute renal failure and needs to be closely followed by nephrology. Timing of disposition will be determined by her clinical course.
[2017-09-22] MEDS: OXYCODONE HCL IR 5 MG TABLET PO PRN (20:28)
[2017-09-22] MEDS: SIMVASTATIN 40 MG TABLET PO SCH (22:38)
[2017-09-23] MEDS: CLONIDINE HCL 0.1 MG TABLET PO SCH ×3 (05:05→18:27)
[2017-09-23] MEDS: LANSOPRAZOLE 30 MG TAB.RAP.DR PO SCH (05:05)
[2017-09-23 05:45] LABS: HEMATOCRIT 22.2 % (36.0-47.0); HGB HCT DIFFERENCE 0.3; MEAN CORPUSCULAR HEMOGLOBIN 27.4 pg (27.0-33.4); MEAN CORPUSCULAR HGB CONC 33.8 g/dL (32.0-36.0); MEAN CORPUSCULAR VOLUME 81 fl (80-97); RED BLOOD COUNT 2.73 10^6/uL (3.72-5.28); RED CELL DISTRIBUTION WIDTH 16.9 % (11.5-14.0); WHITE BLOOD COUNT 7.2 10^3/uL (4.0-10.5)
[2017-09-23 06:00] LABS: ANION GAP 10 (5-19); BLOOD UREA NITROGEN 45 mg/dL (7-20); CALCIUM 8.9 mg/dL (8.4-10.2); CARBON DIOXIDE 27 mmol/L (22-30); CHLORIDE 107 mmol/L (98-107); CREATININE RESULT 2.93 mg/dL (0.52-1.25); GLUCOSE 110 mg/dL (75-110); MAGNESIUM 1.5 mg/dL (1.6-2.3); PHOSPHORUS 5.1 mg/dL (2.5-4.5); POTASSIUM 4.9 mmol/L (3.6-5.0); SODIUM 143.8 mmol/L (137-145)
[2017-09-23 06:01] LABS: HEMOGLOBIN 7.5 g/dL (12.0-15.5)
--- NOTE | 2017-09-23 07:11 | EKG REPORT ---
SEVERITY:- BORDERLINE ECG - SINUS RHYTHM LOW VOLTAGE FRONTAL LEADS BORDERLINE R WAVE PROGRESSION, ANTERIOR LEADS : Confirmed by: Laura James 23-Sep-2017 17:41:08
[2017-09-23] MEDS: HYDROMORPHONE HCL INJ/PF 2 MG/ML AMPULE IV PRN (08:49)
[2017-09-23] MEDS: ONDANSETRON HCL INJ/PF 4 MG/2 ML SDV IV PRN (08:49)
[2017-09-23] MEDS: PREGABALIN 75 MG CAPSULE PO SCH (10:34)
[2017-09-23] MEDS: CEFTRIAXONE 2 GM/D5W RTU 2 GM/50 ML RTUPB IV SCH (10:35)
[2017-09-23] MEDS: ASPIRIN 81 MG TABLET, ENT COATED PO SCH (10:43)
[2017-09-23] MEDS: FERROUS SULFATE 325 MG TABLET PO SCH ×3 (10:43→17:56)
[2017-09-23] MEDS: FLUTICASONE/SALMETEROL DISKUS 500-50 MCG/DOSE IH SCH (10:43)
[2017-09-23] MEDS: FAMOTIDINE 20 MG TABLET PO SCH (10:43)
[2017-09-23] MEDS ORDERED: ONDANSETRON HCL INJ/PF 4 MG/2 ML SDV ONE (14:27)
[2017-09-23] MEDS ORDERED: FENTANYL CITRATE INJ/PF 100 MCG/2 ML AMPUL ONE ×2 (14:27→16:43)
[2017-09-23] MEDS ORDERED: MIDAZOLAM 2 MG/2 ML INJ ONE (14:27)
[2017-09-23] MEDS ORDERED: PROPOFOL INJ 200 MG/20 ML VIAL IV ONE ×3 (14:28→16:47)
[2017-09-23] MEDS ORDERED: PROMETHAZINE HCL INJ 25 MG/1 ML VIAL IV PRN (15:20)
[2017-09-23] MEDS ORDERED: DIPHENHYDRAMINE HCL 50 MG/ML VIAL IV PRN (15:20)
[2017-09-23] MEDS ORDERED: FENTANYL CITRATE INJ/PF 100 MCG/2 ML AMPUL IV PRN ×2 (15:20)
[2017-09-23] MEDS ORDERED: MEPERIDINE HCL/PF INJ 25 MG/1 ML DISP.SYRIN IV PRN (15:20)
[2017-09-23] MEDS ORDERED: BUPIVACAINE HCL 0.5 % INJ/PF 30 ML SDV ONE (15:25)
[2017-09-23] MEDS ORDERED: HYDRALAZINE HCL INJ/PF 20 MG/1 ML SDV ONE (16:13)
[2017-09-23] MEDS ORDERED: ONDANSETRON HCL INJ/PF 4 MG/2 ML SDV IV PRN (16:44)
--- NOTE | 2017-09-23 16:44 | Brief Operative Note ---
BRIEF OPERATIVE REPORT DATE OF SURGERY: 09/23/17 TIME OF SURGERY: 16:00 PREOPERATIVE DIAGNOSIS: S/P Partial Transmetatarsal Amputation Right Foot. POSTOPERATIVE DIAGNOSIS: SAME SURGEON: HUBER BECKFORD FINDINGS: S/P partial TMA right foot with preservation of 5th toe. COMPLICATIONS: None ESTIMATED BLOOD LOSS: 60cc TISSUE REMOVED OR ALTERED: 5th toe, muscle, bone. TECHNICAL PROCEDURE: See dictation
[2017-09-23] MEDS ORDERED: NORMAL SALINE 1000 ML 1,000 ML IV PRN (16:49)
[2017-09-23] MEDS: MORPHINE SULFATE 10 MG/ML INJ IV PRN (17:01)
[2017-09-23] MEDS: MORPHINE SULFATE 10 MG/ML INJ IV ONE ×2 (17:34→19:54)
--- NOTE | 2017-09-23 17:53 | OPERATIVE REPORT E ---
Operative Report NAME: RUTH WOOD : 1975 AGE: 42Y DATE OF SURGERY: 09/23/2017 ROOM: 426 PREOPERATIVE DIAGNOSIS: Status post incomplete transmetatarsal amputation with preservation of the fifth toe with large soft tissue defect remaining, which was treated with wound VAC. POSTOPERATIVE DIAGNOSIS: Status post incomplete transmetatarsal amputation with preservation of the fifth toe with large soft tissue defect remaining, which was treated with wound VAC. OPERATION: Completion transmetatarsal amputation with amputation of the fifth toe and revision of transmetatarsal amputation with closure of defect. SURGEON: HUBER BECKFORD M.D. ANESTHESIA: Mask plus IV sedation. REPLACEMENT: Crystalloid. DRAINS: None. COMPLICATIONS: None. CONDITION: Stable. INDICATION FOR PROCEDURE: The patient is status post partial transmetatarsal amputation with preservation of the fifth toe with a large soft tissue defect left behind in attempt to close the defect. The patient has now come to the operating room for amputation of the fifth toe and revision of the transmetatarsal amputation. PROCEDURE: The patient was brought to the operating suite and placed in a supine position on the operating room table. Monitoring devices were attached and IV sedation was administered and mask anesthesia only was given. The patient's left foot was prepped and draped in the usual sterile manner, and the patient's left fifth toe was amputated. We then did a removal of the metatarsal of the fifth toe as well as amputation of the distal phalanx, and transmetatarsal was revised with the resection of more of metatarsal. We established a space around the metatarsals and again using the saw. We cut back the bone, possibly 2 inches. After revising the *------* resection, we then resected some muscle as well as bone in order to close our defect. We then closed the defect using interrupted 0 Prolene. A posterior flap was used to close the defect and hemostasis was accomplished using the cautery. We were able to close the defect without tension, and the procedure was terminated. The patient tolerated the procedure well and was discharged to the PACU in stable condition. DICTATING PHYSICIAN: HUBER BECKFORD M.D. [id number] Y#: [id number] ID: [id number] JOB#: [id number] ACCT: [id number] cc:HUBER BECKFORD M.D. >
--- NOTE | 2017-09-23 17:55 | Progress Note ---
Provider Note Provider Note: I made several attempts to see the patient today but she was downstairs having her surgery performed. Her chart was reviewed and labs were ordered for tomorrow morning. This will be postoperative day #1 from further debridement of the wound on her foot. I will see her in the morning. There will be no charge for today's visit
[2017-09-23 20:18] LABS: APPEARANCE,URINE SLIGHTLY-CLOUDY; BILIRUBIN,URINE NEGATIVE (NEGATIVE); GLUCOSE, URINE NEGATIVE (NEGATIVE); KETONES,URINE TRACE mg/dL (NEGATIVE); LEUKOCYTE ESTERASE,URINE NEGATIVE (NEGATIVE); NITRITE,URINE NEGATIVE (NEGATIVE); PROTEIN,URINE 30 mg/dL (NEGATIVE); URIC ACID CRYSTALS,URINE FEW /HPF; UROBILINOGEN,URINE NEGATIVE mg/dL (<2.0)
[2017-09-24] MEDS: FLUTICASONE/SALMETEROL DISKUS 500-50 MCG/DOSE IH SCH ×2 (00:21→13:29)
[2017-09-24] MEDS: SIMVASTATIN 40 MG TABLET PO SCH (00:21)
[2017-09-24] MEDS: PREGABALIN 75 MG CAPSULE PO SCH ×3 (00:21→23:56)
[2017-09-24] MEDS: CLONIDINE HCL 0.1 MG TABLET PO SCH ×4 (00:21→18:21)
[2017-09-24] MEDS: LANSOPRAZOLE 30 MG TAB.RAP.DR PO SCH (05:50)
[2017-09-24] MEDS: MORPHINE SULFATE 10 MG/ML INJ IV PRN ×3 (05:50→13:49)
[2017-09-24 06:38] LABS: ABSOLUTE BASOPHILS # (AUTO) 0.1 10^3/uL (0.0-0.2); ABSOLUTE EOSINOPHILS # (AUTO) 0.1 10^3/uL (0.0-0.6); ABSOLUTE LYMPHOCYTES (AUTO) 1.3 10^3/uL (0.5-4.7); ABSOLUTE MONOCYTES (AUTO) 0.9 10^3/uL (0.1-1.4); ABSOLUTE NEUT (AUTO) 7.6 10^3/uL (1.7-8.2); BASOPHILS % (AUTO) 0.6 % (0-2); EOSINOPHILS % (AUTO) 1.1 % (0-6); HGB HCT DIFFERENCE 0.5; LYMPHOCYTES % (AUTO) 13.1 % (13-45); MEAN CORPUSCULAR HEMOGLOBIN 27.4 pg (27.0-33.4); MEAN CORPUSCULAR VOLUME 81 fl (80-97); MONOCYTES % (AUTO) 8.9 % (3-13); RED BLOOD COUNT 2.73 10^6/uL (3.72-5.28); RED CELL DISTRIBUTION WIDTH 16.9 % (11.5-14.0); SEGMENTED NEUTROPHILS % (AUTO) 76.3 % (42-78)
[2017-09-24 06:59] LABS: HEMOGLOBIN 7.5 g/dL (12.0-15.5)
[2017-09-24 07:00] LABS: ANION GAP 10 (5-19); BLOOD UREA NITROGEN 41 mg/dL (7-20); CALCIUM 8.6 mg/dL (8.4-10.2); CARBON DIOXIDE 27 mmol/L (22-30); CHLORIDE 106 mmol/L (98-107); CREATININE RESULT 2.93 mg/dL (0.52-1.25); GLUCOSE 165 mg/dL (75-110); MAGNESIUM 1.4 mg/dL (1.6-2.3); PHOSPHORUS 4.6 mg/dL (2.5-4.5); POTASSIUM 5.1 mmol/L (3.6-5.0); SODIUM 142.6 mmol/L (137-145)
--- NOTE | 2017-09-24 08:02 | PDOC PROGRESS REPORT ---
Subjective Progress Note for:: 09/24/17 Subjective:: Feels okay. Some left leg discomfort. Reason For Visit: CELLULITIS Physical Exam Vital Signs: Temp Pulse Resp BP Pulse Ox 98.7 F 96 15 146/89 H 96 09/23/17 23:15 09/24/17 05:42 09/23/17 23:15 09/24/17 05:42 09/24/17 04:00 Pulse Oximeter Continuous Start: 09/23/17 18: 28 Freq: RTQ4 Status: Active Document 09/24/17 04:00 SFL (Rec: 09/24/17 05:19 SFL [email or web address]) Pulse Oximetry Assessment Oxygen Saturation (92-100) 96 Oxygen Delivery Method Room Air Equipment Usage Equipment in Use Continuous SpO2 Machine # 13 Intake & Output 09/23/17 09/24/17 09/25/17 06:59 06:59 06:59 Intake Total 1542 12438 Output Total 200 1750 Balance 1342 9725 Weight 154.5 kg 146.2 kg General appearance: PRESENT: no acute distress, cooperative Extremities exam: PRESENT: other - Diffuse left leg swelling dressings intact. No erythema of the left leg. Results Laboratory Results: 09/24/17 05:50 09/24/17 05:50 09/23/17 09/24/17 09/24/17 19:30 05:50 05:50 WBC 10.0 RBC 2.73 L Hgb 7.5 L Hct 22.0 L MCV 81 MCH 27.4 MCHC 34.0 RDW 16.9 H Plt Count 332 Seg Neutrophils % 76.3 Lymphocytes % 13.1 Monocytes % 8.9 Eosinophils % 1.1 Basophils % 0.6 Absolute Neutrophils 7.6 Absolute Lymphocytes 1.3 Absolute Monocytes 0.9 Absolute Eosinophils 0.1 Absolute Basophils 0.1 Sodium 142.6 Potassium 5.1 H Chloride 106 Carbon Dioxide 27 Anion Gap 10 BUN 41 H Creatinine 2.93 H Est GFR ( Amer) 21 L Est GFR (Non-Af Amer) 18 L Glucose 165 H Calcium 8.6 Phosphorus 4.6 H Magnesium 1.4 L Urine Color YELLOW Urine Appearance SLIGHTLY-CLOUDY Urine pH 5.0 Ur Specific [place] 1.010 Urine Protein 30 H Urine Glucose (UA) NEGATIVE Urine Ketones TRACE H Urine Blood MODERATE H Urine Nitrite NEGATIVE Ur Leukocyte Esterase NEGATIVE Urine WBC (Auto) 4 Urine RBC (Auto) 56 09/11/17 19:17 Creatine Kinase 277 H Impressions: Lower Extremity CT 09/11/17 00:00 IMPRESSION: Diffuse left foot and left ankle cellulitis Renal Ultrasound 09/13/17 00:00 IMPRESSION: Limited due to body habitus. No hydronephrosis Chest X-Ray 09/17/17 00:00 IMPRESSION: Left jugular central line tip superior vena cava Assessment & Plan - Diagnosis (1) Foot amputation status Qualifiers: Laterality: left Qualified Code(s): Z89.432 - Acquired absence of left foot Is this a current diagnosis for this admission?: Yes Plan: Status post revision of transmetatarsal amputation yesterday. Patient with a diffuse left leg swelling. will check Doppler ultrasound study for DVT.
[2017-09-24] MEDS ORDERED: MAG HYDROX/AL HYDROX/SIMETH SUSP 30 ML UDCUP PO ONE (09:00)
[2017-09-24] MEDS: MAGNESIUM SULFATE/D5W 1 GM/100 ML RTUPB IV SCH ×2 (09:02→14:23)
[2017-09-24] MEDS: FAMOTIDINE 20 MG TABLET PO SCH (09:02)
[2017-09-24] MEDS: ASPIRIN 81 MG TABLET, ENT COATED PO SCH (09:02)
--- NOTE | 2017-09-24 11:17 | RADIOLOGY REPORT (SQ) ---
EXAM DESCRIPTION: VENOUS UNILATERAL LOWER COMPLETED DATE/TIME: 09/24/2017 11:07 am REASON FOR STUDY: left leg swelling COMPARISON: None. TECHNIQUE: Dynamic and static harry scale and color images acquired of the left leg venous system. Se lected spectral images acquired with additional compression and augmentation maneuvers. The contralat eral common femoral vein and saphenofemoral junction were also imaged. Images stored on PACS. LIMITATIONS: None. FINDINGS: COMMON FEMORAL: Normal phasicity, compression and augmentation. No visualized echogenic ma terial on harry scale. No defects on color images. FEMORAL: Normal compression and augmentation. No visualized echogenic material on harry scale. No defe cts on color images. POPLITEAL: Normal compression, augmentation. No visualized echogenic material on harry scale. No defec ts on color images. CALF VESSELS: Normal compression, augmentation. No visualized echogenic material on harry scale. No de fects on color images. GSV and SSV: Normal compression, augmentation. No visualized echogenic material on harry scale. No def ects on color images. ANY DEEP VENOUS INSUFFICIENCY: No. ANY EVIDENCE OF POPLITEAL CYST: No. OTHER: No other significant finding. CONTRALATERAL COMMON FEMORAL VEIN AND SAPHENOFEMORAL JUNCTION: Normal phasicity, compression and augmentation. No visualized echogenic material on harry scale. No de fects on color images. IMPRESSION: NO EVIDENCE DVT OR SVT IN THE LEFT LEG. TECHNICAL DOCUMENTATION: JOB ID: [id number] [employer]- All Rights Reserved
[2017-09-24] MEDS: FERROUS SULFATE 325 MG TABLET PO SCH ×3 (13:29→18:21)
[2017-09-24] MEDS: INSULIN LISPRO 100 UNIT/ML 3 ML VIAL SUBCUT PRN (13:48)
[2017-09-24] MEDS ORDERED: MAGNESIUM SULFATE/D5W 1 GM/100 ML RTUPB IV ONE (14:00)
--- NOTE | 2017-09-24 15:24 | PDOC PROGRESS REPORT ---
Subjective Progress Note for:: 09/24/17 Subjective:: The patient is sitting up on the side of her bed. She states that she is feeling quite poorly this morning. She has developed significant swelling in her left leg and states that it is extremely painful. She also is having pain in her foot. She is received IV morphine but it does not seem to be helping. She denies fever chills. No chest pain or heart palpitations. She is not coughing or short of breath. No nausea vomiting or diarrhea. No urinary complaints. Reason For Visit: CELLULITIS Physical Exam Vital Signs: Temp Pulse Resp BP Pulse Ox 98.5 F 93 18 121/60 100 09/24/17 12:00 09/24/17 12:00 09/24/17 12:00 09/24/17 12:00 09/24/17 12:51 Pulse Oximeter Continuous Start: 09/23/17 18: 28 Freq: RTQ4 Status: Active Document 09/24/17 12:51 TPO (Rec: 09/24/17 12:51 TPO [email or web address]) Pulse Oximetry Assessment Oxygen Saturation (92-100) 100 Oxygen Delivery Method Room Air Fraction of Inspired Oxygen (FIO2) 21 Equipment Usage Equipment in Use Continuous SpO2 Machine # 13 Intake & Output 09/23/17 09/24/17 09/25/17 06:59 06:59 06:59 Intake Total 1542 53700 Output Total 200 1750 Balance 1342 9725 Weight 154.5 kg 146.2 kg General appearance: PRESENT: morbidly obese, other - She appears to be in some discomfort from her left leg. Head exam: PRESENT: atraumatic, normocephalic Eye exam: PRESENT: conjunctiva pink, EOMI, PERRLA. ABSENT: scleral icterus Mouth exam: PRESENT: moist, tongue midline Respiratory exam: PRESENT: clear to auscultation mary. ABSENT: rales, rhonchi, wheezes Cardiovascular exam: PRESENT: RRR. ABSENT: diastolic murmur, rubs, systolic murmur GI/Abdominal exam: PRESENT: normal bowel sounds, other - Patient's abdomen is firm and morbidly obese. I cannot assess for organomegaly due to the patient's body habitus. Rectal exam: PRESENT: deferred Extremities exam: PRESENT: other - The patient has significant edema in her left leg goes all the way up to her thigh. Right leg with no clubbing cyanosis or edema. Left foot has a bandage in place that was not removed because of the time of this dictation Neurological exam: PRESENT: alert, awake, oriented to person, oriented to place , oriented to time, oriented to situation, CN II-XII grossly intact. ABSENT: motor sensory deficit Psychiatric exam: PRESENT: appropriate affect, normal mood. ABSENT: homicidal ideation, suicidal ideation Skin exam: PRESENT: dry, intact, warm. ABSENT: cyanosis, rash Results Laboratory Results: 09/24/17 05:50 09/24/17 05:50 09/23/17 09/23/17 09/24/17 05:20 19:30 05:50 WBC 10.0 RBC 2.73 L Hgb 7.5 L Hct 22.0 L MCV 81 MCH 27.4 MCHC 34.0 RDW 16.9 H Plt Count 332 Seg Neutrophils % 76.3 Lymphocytes % 13.1 Monocytes % 8.9 Eosinophils % 1.1 Basophils % 0.6 Absolute Neutrophils 7.6 Absolute Lymphocytes 1.3 Absolute Monocytes 0.9 Absolute Eosinophils 0.1 Absolute Basophils 0.1 Sodium Potassium Chloride Carbon Dioxide Anion Gap BUN Creatinine Est GFR ( Amer) Est GFR (Non-Af Amer) Glucose Calcium Phosphorus Magnesium Transferrin 233 Urine Color YELLOW Urine Appearance SLIGHTLY-CLOUDY Urine pH 5.0 Ur Specific [place] 1.010 Urine Protein 30 H Urine Glucose (UA) NEGATIVE Urine Ketones TRACE H Urine Blood MODERATE H Urine Nitrite NEGATIVE Ur Leukocyte Esterase NEGATIVE Urine WBC (Auto) 4 Urine RBC (Auto) 56 09/24/17 05:50 WBC RBC Hgb Hct MCV MCH MCHC RDW Plt Count Seg Neutrophils % Lymphocytes % Monocytes % Eosinophils % Basophils % Absolute Neutrophils Absolute Lymphocytes Absolute Monocytes Absolute Eosinophils Absolute Basophils Sodium 142.6 Potassium 5.1 H Chloride 106 Carbon Dioxide 27 Anion Gap 10 BUN 41 H Creatinine 2.93 H Est GFR ( Amer) 21 L Est GFR (Non-Af Amer) 18 L Glucose 165 H Calcium 8.6 Phosphorus 4.6 H Magnesium 1.4 L Transferrin Urine Color Urine Appearance Urine pH Ur Specific [place] Urine Protein Urine Glucose (UA) Urine Ketones Urine Blood Urine Nitrite Ur Leukocyte Esterase Urine WBC (Auto) Urine RBC (Auto) 09/11/17 19:17 Creatine Kinase 277 H Impressions: Lower Extremity CT 09/11/17 00:00 IMPRESSION: Diffuse left foot and left ankle cellulitis Renal Ultrasound 09/13/17 00:00 IMPRESSION: Limited due to body habitus. No hydronephrosis Chest X-Ray 09/17/17 00:00 IMPRESSION: Left jugular central line tip superior vena cava Venous Doppler Study 09/24/17 08:28 IMPRESSION: NO EVIDENCE DVT OR SVT IN THE LEFT LEG. Assessment & Plan - Diagnosis (1) Sepsis Plan: Present on admission secondary to underlying cellulitis and osteomyelitis. Resolved (2) Osteomyelitis Plan: Of the left foot status post transmetatarsal amputation. Per the nursing staff she will likely go back to the operating room tomorrow. Currently on 2 g of IV Rocephin daily based on culture results. (3) Cellulitis of left foot Is this a current diagnosis for this admission?: Yes Plan: Resolving. Continue IV Rocephin. (4) Acute renal failure Qualifiers: Acute renal failure type: unspecified Qualified Code(s): N17.9 - Acute kidney failure, unspecified Is this a current diagnosis for this admission?: Yes Plan: Her creatinine is the same as it was yesterday. It has improved since the time of admission. It is likely due to ATN due to acute illness and nephrotoxic medications. Nephrology is following. (5) Swelling of left lower extremity Plan: A venous Doppler will be ordered this morning. We will follow-up with those results. (6) Hyperkalemia Is this a current diagnosis for this admission?: Yes Plan: Secondary to acute renal failure. Improving (7) Morbid obesity with BMI of 50.0-59.9, adult Is this a current diagnosis for this admission?: Yes Plan: Certainly she would benefit from weight loss. Dietary discretion is advised (8) Peripheral vascular disease Is this a current diagnosis for this admission?: Yes Plan: She will need to follow-up as an outpatient with vascular surgery. (9) Anemia Qualifiers: Anemia type: iron deficiency Iron deficiency anemia type: inadequate dietary iron intake Qualified Code(s): D50.8 - Other iron deficiency anemias Is this a current diagnosis for this admission?: Yes Plan: Stable. Nephrology is following. (10) Hyponatremia Plan: Resolved (11) Diabetes mellitus type 1.5 Is this a current diagnosis for this admission?: Yes Plan: Continue sliding scale insulin. I will see how her blood sugars do over the next 24 hours and will consider starting Lantus. (12) Hypertension Qualifiers: Hypertension type: essential hypertension Qualified Code(s): I10 - Essential (primary) hypertension Is this a current diagnosis for this admission?: Yes Plan: Stable - Time Time Spent with patient: 25-34 minutes - Inpatient Certification Medical Necessity: Need Close Monitoring Due to Risk of Patient Decompensation, Need for Pain Control - Inpatient hospitalization remains necessary. The patient still has acute renal failure requiring close monitoring by nephrology. She is postoperative day #1 from transmetatarsal amputation revision of her foot. Timing of disposition will be determined by her clinical course, Need for IV Antibiotics
[2017-09-24] MEDS: CEFTRIAXONE 2 GM/D5W RTU 2 GM/50 ML RTUPB IV SCH (15:55)
[2017-09-24] MEDS: OXYCODONE HCL IR 5 MG TABLET PO PRN (15:56)
[2017-09-25] MEDS: FLUTICASONE/SALMETEROL DISKUS 500-50 MCG/DOSE IH SCH ×3 (00:01→22:18)
[2017-09-25] MEDS: IPRATROPIUM/ALBUTEROL 0.5-2.5 MG/3 ML AMPUL NEB PRN ×3 (00:16→22:13)
[2017-09-25] MEDS: CLONIDINE HCL 0.1 MG TABLET PO SCH ×5 (05:34→23:57)
[2017-09-25] MEDS: LANSOPRAZOLE 30 MG TAB.RAP.DR PO SCH (05:53)
[2017-09-25] MEDS: OXYCODONE HCL IR 5 MG TABLET PO PRN ×5 (05:54→22:18)
[2017-09-25 06:11] LABS: HEMATOCRIT 20.2 % (36.0-47.0); HGB HCT DIFFERENCE -0.1; MEAN CORPUSCULAR HEMOGLOBIN 26.6 pg (27.0-33.4); MEAN CORPUSCULAR VOLUME 81 fl (80-97); RED BLOOD COUNT 2.51 10^6/uL (3.72-5.28); RED CELL DISTRIBUTION WIDTH 16.8 % (11.5-14.0); WHITE BLOOD COUNT 9.8 10^3/uL (4.0-10.5)
[2017-09-25 06:17] LABS: HEMOGLOBIN 6.7 g/dL (12.0-15.5)
[2017-09-25 06:25] LABS: ANION GAP 9 (5-19); BLOOD UREA NITROGEN 38 mg/dL (7-20); CALCIUM 8.7 mg/dL (8.4-10.2); CARBON DIOXIDE 27 mmol/L (22-30); CHLORIDE 103 mmol/L (98-107); CREATININE RESULT 2.76 mg/dL (0.52-1.25); GLUCOSE 161 mg/dL (75-110); MAGNESIUM 1.7 mg/dL (1.6-2.3); POTASSIUM 4.3 mmol/L (3.6-5.0); SODIUM 139.1 mmol/L (137-145)
[2017-09-25] MEDS: CEFTRIAXONE 2 GM/D5W RTU 2 GM/50 ML RTUPB IV SCH (10:58)
[2017-09-25] MEDS: FAMOTIDINE 20 MG TABLET PO SCH (10:59)
[2017-09-25] MEDS: ASPIRIN 81 MG TABLET, ENT COATED PO SCH (10:59)
[2017-09-25] MEDS: PREGABALIN 75 MG CAPSULE PO SCH ×2 (10:59→22:15)
[2017-09-25] MEDS: FERROUS SULFATE 325 MG TABLET PO SCH ×3 (11:00→18:11)
[2017-09-25] MEDS ORDERED: FUROSEMIDE INJ/PF 20 MG/2 ML SDV IV PRN (12:48)
[2017-09-25] MEDS ORDERED: NORMAL SALINE 250 ML IV PRN ×2 (12:48)
[2017-09-25] MEDS: INSULIN LISPRO 100 UNIT/ML 3 ML VIAL SUBCUT PRN ×2 (13:36→18:12)
--- NOTE | 2017-09-25 17:12 | PDOC PROGRESS REPORT ---
Subjective Progress Note for:: 09/25/17 Subjective:: Pains left foot TMA site. Reason For Visit: CELLULITIS Physical Exam Vital Signs: Temp Pulse Resp BP Pulse Ox 98.5 F 76 16 136/61 H 100 09/25/17 12:00 09/25/17 12:00 09/25/17 12:00 09/25/17 12:00 09/25/17 12:09 Pulse Oximeter Continuous Start: 09/23/17 18: 28 Freq: RTQ4 Status: Active Document 09/25/17 12:09 [facility]Rec: 09/25/17 12:09 [facility] [email or web address]) Pulse Oximetry Assessment Oxygen Saturation (92-100) 100 Oxygen Delivery Method Room Air Fraction of Inspired Oxygen (FIO2) 21 Equipment Usage Equipment in Use Continuous SpO2 Machine # N 13 Intake & Output 09/24/17 09/25/17 09/26/17 06:59 06:59 06:59 Intake Total 63729 1660 Output Total 1750 830 Balance 9725 830 Weight 146.2 kg 149.6 kg Exam: Left leg swollen. No DVT by doppler. Left foot dressing intact. Results Laboratory Results: 09/25/17 05:50 09/25/17 05:50 09/25/17 09/25/17 09/25/17 05:50 05:50 14:17 WBC 9.8 RBC 2.51 L Hgb 6.7 L Hct 20.2 L MCV 81 MCH 26.6 L MCHC 33.0 RDW 16.8 H Plt Count 281 Sodium 139.1 Potassium 4.3 Chloride 103 Carbon Dioxide 27 Anion Gap 9 BUN 38 H Creatinine 2.76 H Est GFR ( Amer) 23 L Est GFR (Non-Af Amer) 19 L Glucose 161 H Calcium 8.7 Magnesium 1.7 Blood Type B POSITIVE Antibody Screen NEGATIVE 09/11/17 19:17 Creatine Kinase 277 H Impressions: Lower Extremity CT 09/11/17 00:00 IMPRESSION: Diffuse left foot and left ankle cellulitis Renal Ultrasound 09/13/17 00:00 IMPRESSION: Limited due to body habitus. No hydronephrosis Chest X-Ray 09/17/17 00:00 IMPRESSION: Left jugular central line tip superior vena cava Venous Doppler Study 09/24/17 08:28 IMPRESSION: NO EVIDENCE DVT OR SVT IN THE LEFT LEG. Assessment & Plan - Time Time Spent with patient: 15-24 minutes - Plan Summary Plan Summary: Yasmin change dressings tomorrow.
--- NOTE | 2017-09-25 18:41 | PDOC PROGRESS REPORT ---
Subjective Progress Note for:: 09/25/17 Subjective:: The patient is a 42-year-old -Martiniquais female who was admitted to the hospital with sepsis from a diabetic foot infection. She ultimately was found to have osteomyelitis and is status post 2 visits to the operating room for transmetatarsal amputation and further revision. Her hospitalization has been complicated by the development of acute renal failure. Her kidney function has improved somewhat and she is being followed closely by nephrology. Over the course of the hospitalization the patient's hemoglobin has drifted downwards. Today she is requiring transfusion of 2 units of packed red blood cells. When I saw the patient today she is resting comfortably in the bed. She states that her blood sugar is improving since she has had her amputation. She states that this is making her feel better. She has been a little weak and slightly dizzy when she stands up. She has had some mild nausea but no vomiting. She states she did have an episode of watery diarrhea today. She has had no fever chills overnight. No chest pain, shortness of breath or heart palpitations. Reason For Visit: CELLULITIS Physical Exam Vital Signs: Temp Pulse Resp BP Pulse Ox 98.3 F 80 16 140/60 H 94 09/25/17 16:00 09/25/17 16:00 09/25/17 16:00 09/25/17 16:00 09/25/17 16:00 Pulse Oximeter Continuous Start: 09/23/17 18: 28 Freq: RTQ4 Status: Active Document 09/25/17 12:09 [facility] (Rec: 09/25/17 12:09 [facility] [email or web address]) Pulse Oximetry Assessment Oxygen Saturation (92-100) 100 Oxygen Delivery Method Room Air Fraction of Inspired Oxygen (FIO2) 21 Equipment Usage Equipment in Use Continuous SpO2 Machine # [id number] 13 Intake & Output 09/24/17 09/25/17 09/26/17 06:59 06:59 06:59 Intake Total 86247 1660 872 Output Total 1750 830 Balance 9725 830 872 Weight 146.2 kg 149.6 kg General appearance: PRESENT: morbidly obese, well-developed, well-nourished Head exam: PRESENT: atraumatic, normocephalic Eye exam: PRESENT: conjunctiva pink, EOMI, PERRLA. ABSENT: scleral icterus Mouth exam: PRESENT: moist, tongue midline Respiratory exam: PRESENT: clear to auscultation mary, other - She is diminished in the lower bases bilaterally. ABSENT: rales, rhonchi, wheezes Cardiovascular exam: PRESENT: RRR. ABSENT: diastolic murmur, rubs, systolic murmur GI/Abdominal exam: PRESENT: normal bowel sounds, soft, other - Her abdomen is morbidly obese. I could not assess for organomegaly due to the patient's body habitus. ABSENT: distended, guarding, mass, rebound, tenderness Rectal exam: PRESENT: deferred Extremities exam: PRESENT: other - Left lower extremity remains significantly swollen. It is less painful than it was yesterday. The patient has a postoperative bandage on her left foot that was not removed as of the time of this dictation. Neurological exam: PRESENT: alert, awake, oriented to person, oriented to place , oriented to time, oriented to situation, CN II-XII grossly intact. ABSENT: motor sensory deficit Psychiatric exam: PRESENT: appropriate affect, normal mood. ABSENT: homicidal ideation, suicidal ideation Skin exam: PRESENT: dry, intact, warm. ABSENT: cyanosis, rash Results Laboratory Results: 09/25/17 05:50 09/25/17 05:50 09/25/17 09/25/17 09/25/17 05:50 05:50 14:17 WBC 9.8 RBC 2.51 L Hgb 6.7 L Hct 20.2 L MCV 81 MCH 26.6 L MCHC 33.0 RDW 16.8 H Plt Count 281 Sodium 139.1 Potassium 4.3 Chloride 103 Carbon Dioxide 27 Anion Gap 9 BUN 38 H Creatinine 2.76 H Est GFR ( Amer) 23 L Est GFR (Non-Af Amer) 19 L Glucose 161 H Calcium 8.7 Magnesium 1.7 Blood Type B POSITIVE Antibody Screen NEGATIVE 09/11/17 19:17 Creatine Kinase 277 H Impressions: Lower Extremity CT 09/11/17 00:00 IMPRESSION: Diffuse left foot and left ankle cellulitis Renal Ultrasound 09/13/17 00:00 IMPRESSION: Limited due to body habitus. No hydronephrosis Chest X-Ray 09/17/17 00:00 IMPRESSION: Left jugular central line tip superior vena cava Venous Doppler Study 09/24/17 08:28 IMPRESSION: NO EVIDENCE DVT OR SVT IN THE LEFT LEG. Assessment & Plan - Diagnosis (1) Sepsis Plan: Present on admission secondary to underlying cellulitis and osteomyelitis. Resolved (2) Osteomyelitis Plan: The patient has had 2 trips to the operating room. She has had a transmetatarsal amputation. Currently she is on 2 g of Rocephin daily based on previous culture results. Final pathology results are not back to see if they have clean margins. (3) Cellulitis of left foot Is this a current diagnosis for this admission?: Yes Plan: Resolving. Continue IV Rocephin. (4) Acute renal failure Qualifiers: Acute renal failure type: unspecified Qualified Code(s): N17.9 - Acute kidney failure, unspecified Is this a current diagnosis for this admission?: Yes Plan: Her creatinine has improved but seems to be plateauing. It is likely due to ATN due to acute illness and nephrotoxic medications. Nephrology is following. (5) Swelling of left lower extremity Plan: Venous Doppler yesterday revealed no evidence of a DVT. This is likely just swelling from her recent surgery. (6) Hyperkalemia Is this a current diagnosis for this admission?: Yes Plan: Secondary to acute renal failure. Resolved (7) Morbid obesity with BMI of 50.0-59.9, adult Is this a current diagnosis for this admission?: Yes Plan: Certainly she would benefit from weight loss. Dietary discretion is advised (8) Peripheral vascular disease Is this a current diagnosis for this admission?: Yes Plan: She will need to follow-up as an outpatient with vascular surgery. (9) Anemia Qualifiers: Anemia type: iron deficiency Iron deficiency anemia type: inadequate dietary iron intake Qualified Code(s): D50.8 - Other iron deficiency anemias Is this a current diagnosis for this admission?: Yes Plan: Her anemia is multifactorial. She has some postoperative blood loss as well as an iron deficiency anemia. The patient just finished a heavy. And she has been on IV fluids so there is an element of hemodilution. The patient will be transfused 2 units of packed red blood cells today. She will have a CBC drawn in the morning. (10) Hyponatremia Plan: Resolved (11) Diabetes mellitus type 1.5 Is this a current diagnosis for this admission?: Yes Plan: Continue sliding scale insulin. I am going to start her on low-dose Lantus at 10 units tonight and we will check her make further adjustments tomorrow. (12) Hypertension Qualifiers: Hypertension type: essential hypertension Qualified Code(s): I10 - Essential (primary) hypertension Is this a current diagnosis for this admission?: Yes Plan: Stable - Time Time Spent with patient: 25-34 minutes - Inpatient Certification Based on my medical assessment, after consideration of the patient's comorbidities, presenting symptoms, or acuity I expect that the services needed warrant INPATIENT care.: Yes I certify that my determination is in accordance with my understanding of Medicare's requirements for reasonable and necessary INPATIENT services [42 CFR 412.3e].: Yes Medical Necessity: Need For IV Fluids, Need for IV Antibiotics, Other - Inpatient hospitalization remains necessary. The patient is still requiring parenteral therapies. Her renal function still has not improved very much and she is requiring parenteral antibiotics for her foot. Timing of disposition will be determined by her clinical course
--- NOTE | 2017-09-25 19:51 | PDOC PROGRESS REPORT ---
Subjective Progress Note for:: 09/25/17 Subjective:: Patient underwent second surgical procedure on her left foot couple days ago. Currently she is being transfused 2 units of packed RBC. She continues to make adequate urine output. Her kidney function slowly improved. She does not really have much complaints. Reason For Visit: Acute kidney injury Physical Exam Vital Signs: Temp Pulse Resp BP Pulse Ox 97.7 F 95 16 140/60 H 98 09/25/17 18:47 09/25/17 18:47 09/25/17 18:47 09/25/17 18:32 09/25/17 18:47 Pulse Oximeter Continuous Start: 09/23/17 18: 28 Freq: RTQ4 Status: Active Document 09/25/17 12:09 [facility] (Rec: 09/25/17 12:09 [facility] [email or web address]) Pulse Oximetry Assessment Oxygen Saturation (92-100) 100 Oxygen Delivery Method Room Air Fraction of Inspired Oxygen (FIO2) 21 Equipment Usage Equipment in Use Continuous SpO2 Machine # N 13 Intake & Output 09/24/17 09/25/17 09/26/17 06:59 06:59 06:59 Intake Total 07303 1660 1544 Output Total 1750 830 Balance 9725 830 1544 Weight 146.2 kg 149.6 kg Exam: General appearance: PRESENT: no acute distress, cooperative, well-developed, well-nourished Head exam: PRESENT: atraumatic, normocephalic Eye exam: PRESENT: conjunctiva pale, PERRLA. ABSENT: scleral icterus Neck exam: ABSENT: JVD Respiratory exam: PRESENT: Normal breath sounds. ABSENT: crackles, rales, rhonchi, unlabored, wheezes Cardiovascular exam: PRESENT: Regular rate rhythm -+S1, +S2. ABSENT: diastolic murmur, systolic murmur GI/Abdominal exam: PRESENT: normal bowel sounds, soft. ABSENT: guarding, mass, tenderness Extremities exam: Grade 2 bilateral lower extremity edema, left greater than the right; left foot has bandage over the surgical site. Neurological exam: PRESENT: alert, awake, oriented to person, place and time. Skin exam: PRESENT: dry, warm, Results Laboratory Results: 09/25/17 05:50 09/25/17 05:50 09/25/17 09/25/17 09/25/17 05:50 05:50 14:17 WBC 9.8 RBC 2.51 L Hgb 6.7 L Hct 20.2 L MCV 81 MCH 26.6 L MCHC 33.0 RDW 16.8 H Plt Count 281 Sodium 139.1 Potassium 4.3 Chloride 103 Carbon Dioxide 27 Anion Gap 9 BUN 38 H Creatinine 2.76 H Est GFR ( Amer) 23 L Est GFR (Non-Af Amer) 19 L Glucose 161 H Calcium 8.7 Magnesium 1.7 Blood Type B POSITIVE Antibody Screen NEGATIVE 09/11/17 19:17 Creatine Kinase 277 H Impressions: Lower Extremity CT 09/11/17 00:00 IMPRESSION: Diffuse left foot and left ankle cellulitis Renal Ultrasound 09/13/17 00:00 IMPRESSION: Limited due to body habitus. No hydronephrosis Chest X-Ray 09/17/17 00:00 IMPRESSION: Left jugular central line tip superior vena cava Venous Doppler Study 09/24/17 08:28 IMPRESSION: NO EVIDENCE DVT OR SVT IN THE LEFT LEG. Assessment & Plan - Diagnosis (1) Acute kidney injury Is this a current diagnosis for this admission?: Yes Plan: Possibly with underlying chronic kidney disease. Patient is nonoliguric. She has minimal proteinuria. This is most likely secondary to acute tubular necrosis secondary to vancomycin toxicity due to temporal relation of worsening kidney function and toxic vancomycin levels. Some exacerbating factors include relative hypotensive episode and current infection. Patient's kidney function is currently improving with discontinuation of vancomycin, IV fluids, and discontinuation of other potential nephrotoxic medications including lisinopril and metformin. Treatment of current infection is also helpful. I expect the patient's kidney function to continue to improve if everything else continues to be the same in the next few days sometimes few weeks. At this time I think she is on the right direction. Patient does not require any kind of renal replacement therapy at this time. Continue to monitor kidney function and avoid further nephrotoxic medications. Agree with blood transfusion which can improve kidney function and giving Lasix after. (2) Hyperkalemia Is this a current diagnosis for this admission?: Yes Plan: Resolved. (3) Cellulitis of left foot Is this a current diagnosis for this admission?: Yes Plan: Status post left transmetatarsal amputation and another surgery for completion of left fifth toe amputation and closure of the wound currently V antibiotics. Followed by surgeon. (4) Anemia Qualifiers: Anemia type: iron deficiency Iron deficiency anemia type: inadequate dietary iron intake Qualified Code(s): D50.8 - Other iron deficiency anemias Is this a current diagnosis for this admission?: Yes Plan: This seems to be acutely exacerbated on top of chronic anemia. Possible acute causative factors include IV fluid dilutional effect, and blood loss from surgery. No evidence of any occult GI bleeding as a stool for occult blood is negative. Underlying chronic anemia can be partially due to a possible chronic kidney disease and chronic illness. Agree with blood transfusion (5) Diabetes mellitus type 1.5 Is this a current diagnosis for this admission?: Yes (6) Hypertension Qualifiers: Hypertension type: essential hypertension Qualified Code(s): I10 - Essential (primary) hypertension Is this a current diagnosis for this admission?: Yes Plan: Suboptimally controlled. In addition to scheduled clonidine, amlodipine can be added. - Time Time with patient: 15-25 minutes
[2017-09-25] MEDS ORDERED: NA PHOS,M-B/NA PHOS,DI-BA (ADULT) 133 ML ENEMA PR PRN (20:50)
[2017-09-25] MEDS ORDERED: LACTULOSE SYRUP 20 GM/30 ML UDCUP PO ONE (21:00)
[2017-09-25] MEDS ORDERED: INSULIN GLARGINE,HUM.REC.ANLOG 1,000 UNIT/10 ML UNIT SUBCUT ONE (22:08)
[2017-09-25] MEDS: SIMVASTATIN 40 MG TABLET PO SCH ×2 (22:17)
[2017-09-25] MEDS: INSULIN GLARGINE,HUM.REC.ANLOG 300 UNIT/3 ML INSULN.PEN SUBCUT SCH (22:20)
[2017-09-26 00:05] LABS: APPEARANCE,URINE CLEAR; BILIRUBIN,URINE NEGATIVE (NEGATIVE); GLUCOSE, URINE NEGATIVE (NEGATIVE); KETONES,URINE NEGATIVE (NEGATIVE); LEUKOCYTE ESTERASE,URINE NEGATIVE (NEGATIVE); NITRITE,URINE NEGATIVE (NEGATIVE); PROTEIN,URINE 30 mg/dL (NEGATIVE); UROBILINOGEN,URINE NEGATIVE mg/dL (<2.0)
[2017-09-26] MEDS: MORPHINE SULFATE 10 MG/ML INJ IV PRN (01:17)
[2017-09-26] MEDS: LANSOPRAZOLE 30 MG TAB.RAP.DR PO SCH (05:28)
[2017-09-26] MEDS: CLONIDINE HCL 0.1 MG TABLET PO SCH ×4 (05:29→23:31)
[2017-09-26 06:02] LABS: ABSOLUTE BASOPHILS # (AUTO) 0.1 10^3/uL (0.0-0.2); ABSOLUTE EOSINOPHILS # (AUTO) 0.2 10^3/uL (0.0-0.6); ABSOLUTE LYMPHOCYTES (AUTO) 1.5 10^3/uL (0.5-4.7); ABSOLUTE MONOCYTES (AUTO) 0.8 10^3/uL (0.1-1.4); ABSOLUTE NEUT (AUTO) 5.3 10^3/uL (1.7-8.2); BASOPHILS % (AUTO) 0.9 % (0-2); EOSINOPHILS % (AUTO) 2.5 % (0-6); HEMATOCRIT 23.8 % (36.0-47.0); HGB HCT DIFFERENCE 0.2; LYMPHOCYTES % (AUTO) 19.1 % (13-45); MEAN CORPUSCULAR HEMOGLOBIN 27.1 pg (27.0-33.4); MEAN CORPUSCULAR HGB CONC 33.8 g/dL (32.0-36.0); MEAN CORPUSCULAR VOLUME 80 fl (80-97); MONOCYTES % (AUTO) 9.9 % (3-13); RED BLOOD COUNT 2.96 10^6/uL (3.72-5.28); RED CELL DISTRIBUTION WIDTH 16.1 % (11.5-14.0); SEGMENTED NEUTROPHILS % (AUTO) 67.6 % (42-78); WHITE BLOOD COUNT 7.9 10^3/uL (4.0-10.5)
[2017-09-26 06:06] LABS: ANION GAP 9 (5-19); BLOOD UREA NITROGEN 34 mg/dL (7-20); CALCIUM 8.9 mg/dL (8.4-10.2); CARBON DIOXIDE 28 mmol/L (22-30); CHLORIDE 105 mmol/L (98-107); CREATININE RESULT 2.56 mg/dL (0.52-1.25); GLUCOSE 162 mg/dL (75-110); MAGNESIUM 1.7 mg/dL (1.6-2.3); POTASSIUM 4.6 mmol/L (3.6-5.0); SODIUM 141.7 mmol/L (137-145)
[2017-09-26] MEDS: INSULIN LISPRO 100 UNIT/ML 3 ML VIAL SUBCUT PRN ×2 (08:12→17:36)
[2017-09-26] MEDS: FERROUS SULFATE 325 MG TABLET PO SCH ×3 (08:12→17:36)
[2017-09-26] MEDS: IPRATROPIUM/ALBUTEROL 0.5-2.5 MG/3 ML AMPUL NEB PRN ×2 (09:21→14:02)
[2017-09-26] MEDS: FLUTICASONE/SALMETEROL DISKUS 500-50 MCG/DOSE IH SCH ×2 (10:29→23:31)
[2017-09-26] MEDS: ASPIRIN 81 MG TABLET, ENT COATED PO SCH (10:29)
[2017-09-26] MEDS: FAMOTIDINE 20 MG TABLET PO SCH (10:30)
[2017-09-26] MEDS: PREGABALIN 75 MG CAPSULE PO SCH ×2 (10:30→23:30)
[2017-09-26] MEDS: HYDROMORPHONE HCL INJ/PF 2 MG/ML AMPULE IV PRN ×3 (10:30→18:46)
[2017-09-26] MEDS ORDERED: BISACODYL 10 MG SUPP.RECT PR ONE (12:00)
--- NOTE | 2017-09-26 13:37 | PDOC PROGRESS REPORT ---
Subjective Progress Note for:: 09/26/17 Subjective:: Patient is a 42-year-old morbidly obese black female who is currently hospitalized secondary to sepsis from a diabetic foot infection complicated by peripheral arterial disease. Her workup is significant for osteomyelitis. She was taken to the operating room for a transmetatarsal amputation and later taken back for a revision. The patient developed acute and severe renal failure which is felt to be secondary to acute tubular necrosis from medication effect. The patient has had anemia. Her anemia is likely multifactorial from blood loss, critical illness and acute renal failure. She was given 2 units of packed red blood cells on 09/25/2017. In regards to her diabetes she was started on Lantus on 09/25/2017. Patient is complaining of constipation. She is getting around okay but is asking for a walker. She feels that she would be able to ambulate more easily if she had a walker to offset the weight on her left leg. Otherwise, she has no complaints this morning. Reason For Visit: CELLULITIS Physical Exam Vital Signs: Temp Pulse Resp BP Pulse Ox 97.7 F 83 18 157/72 H 100 09/26/17 11:24 09/26/17 11:24 09/26/17 11:24 09/26/17 11:24 09/26/17 12:18 Pulse Oximeter Continuous Start: 09/23/17 18: 28 Freq: RTQ4 Status: Active Document 09/26/17 12:18 [facility] (Rec: 09/26/17 12:19 [facility] [email or web address]) Pulse Oximetry Assessment Oxygen Saturation (92-100) 100 Oxygen Delivery Method Room Air Fraction of Inspired Oxygen (FIO2) 21 Equipment Usage Equipment in Use Continuous SpO2 Machine # [id number] Intake & Output 09/25/17 09/26/17 09/27/17 06:59 06:59 06:59 Intake Total 1660 3059 Output Total 830 700 Balance 830 2359 Weight 149.6 kg 150.3 kg Additional comments: The patient is a morbidly obese black female. She appears to be her stated age. Her cognition and mentation are normal. Her facial appearance is normal. She is noted to have very good dentition. Her lungs are clear to auscultation both anteriorly and posteriorly. Her cardiac exam is regular without murmurs, gallops or rubs. The abdomen is obese but soft. The left lower extremity is wrapped in a surgical bandage but it does not appear to be any more edematous than the right in the right lower extremity is unremarkable. Results Laboratory Results: 09/26/17 05:30 09/26/17 05:30 09/25/17 09/25/17 09/26/17 14:17 23:50 05:30 WBC 7.9 RBC 2.96 L Hgb 8.0 L Hct 23.8 L MCV 80 MCH 27.1 MCHC 33.8 RDW 16.1 H Plt Count 272 Seg Neutrophils % 67.6 Lymphocytes % 19.1 Monocytes % 9.9 Eosinophils % 2.5 Basophils % 0.9 Absolute Neutrophils 5.3 Absolute Lymphocytes 1.5 Absolute Monocytes 0.8 Absolute Eosinophils 0.2 Absolute Basophils 0.1 Sodium Potassium Chloride Carbon Dioxide Anion Gap BUN Creatinine Est GFR ( Amer) Est GFR (Non-Af Amer) Glucose Calcium Magnesium Urine Color YELLOW Urine Appearance CLEAR Urine pH 6.0 Ur Specific [place] 1.010 Urine Protein 30 H Urine Glucose (UA) NEGATIVE Urine Ketones NEGATIVE Urine Blood SMALL H Urine Nitrite NEGATIVE Ur Leukocyte Esterase NEGATIVE Urine WBC (Auto) 3 Urine RBC (Auto) 3 Blood Type B POSITIVE Antibody Screen NEGATIVE 09/26/17 05:30 WBC RBC Hgb Hct MCV MCH MCHC RDW Plt Count Seg Neutrophils % Lymphocytes % Monocytes % Eosinophils % Basophils % Absolute Neutrophils Absolute Lymphocytes Absolute Monocytes Absolute Eosinophils Absolute Basophils Sodium 141.7 Potassium 4.6 Chloride 105 Carbon Dioxide 28 Anion Gap 9 BUN 34 H Creatinine 2.56 H Est GFR ( Amer) 25 L Est GFR (Non-Af Amer) 20 L Glucose 162 H Calcium 8.9 Magnesium 1.7 Urine Color Urine Appearance Urine pH Ur Specific [place] Urine Protein Urine Glucose (UA) Urine Ketones Urine Blood Urine Nitrite Ur Leukocyte Esterase Urine WBC (Auto) Urine RBC (Auto) Blood Type Antibody Screen 09/11/17 19:17 Creatine Kinase 277 H Impressions: Lower Extremity CT 09/11/17 00:00 IMPRESSION: Diffuse left foot and left ankle cellulitis Renal Ultrasound 09/13/17 00:00 IMPRESSION: Limited due to body habitus. No hydronephrosis Chest X-Ray 09/17/17 00:00 IMPRESSION: Left jugular central line tip superior vena cava Venous Doppler Study 09/24/17 08:28 IMPRESSION: NO EVIDENCE DVT OR SVT IN THE LEFT LEG. Assessment & Plan - Diagnosis (1) Left leg cellulitis Is this a current diagnosis for this admission?: Yes Plan: Continue Rocephin. (2) Diabetes mellitus type 1.5 Is this a current diagnosis for this admission?: Yes Plan: This was started 09/25/2017. Continue sliding scale insulin. Adjust as needed. (3) Morbid obesity with BMI of 50.0-59.9, adult Is this a current diagnosis for this admission?: Yes (4) Sepsis affecting skin Is this a current diagnosis for this admission?: Yes Plan: This is resolving. (5) Hypertension Qualifiers: Hypertension type: essential hypertension Qualified Code(s): I10 - Essential (primary) hypertension Is this a current diagnosis for this admission?: Yes Plan: Stable. (6) Peripheral vascular disease Is this a current diagnosis for this admission?: Yes Plan: Patient will need further evaluation for peripheral arterial disease. However, due to her acute renal failure she is not a candidate for IV contrast and the studies must be placed on hold for now. (7) Guillain Velazquez syndrome Is this a current diagnosis for this admission?: No Plan: The patient carries a past medical history of Guillain Velazquez syndrome. The patient was last treated with IVIG in 2011. We need to monitor closely for recurrence. (8) Acute renal failure Qualifiers: Acute renal failure type: unspecified Qualified Code(s): N17.9 - Acute kidney failure, unspecified Is this a current diagnosis for this admission?: Yes Plan: Nephrology is following. I appreciate their assistance. The patient appears to have developed acute tubular necrosis which is likely secondary to combination of medication effect and possibly hypoperfusion from surgery. She is now plateauing and stabilizing. 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 We will need to make sure the final pathology shows clear margins. (11) Sepsis Is this a current diagnosis for this admission?: Yes Plan: Resolving. (12) Anemia Qualifiers: Anemia type: iron deficiency Iron deficiency anemia type: inadequate dietary iron intake Qualified Code(s): D50.8 - Other iron deficiency anemias Is this a current diagnosis for this admission?: Yes Plan: The patient received a 2 unit packed red blood cell transfusion 09/25/2017. She had an appropriate response. - Time Time Spent with patient: 25-34 minutes - Inpatient Certification Medical Necessity: Significant Comorbidiites Make Outpatient Treatment Too Risky , Need Close Monitoring Due to Risk of Patient Decompensation, Need for Pain Control, Need for IV Antibiotics
--- NOTE | 2017-09-26 19:34 | PDOC PROGRESS REPORT ---
Subjective Progress Note for:: 09/26/17 Subjective:: pains left foot post TMA Reason For Visit: CELLULITIS Physical Exam Vital Signs: Temp Pulse Resp BP Pulse Ox 97.3 F 94 18 166/80 H 99 09/26/17 16:25 09/26/17 16:25 09/26/17 16:25 09/26/17 16:25 09/26/17 16:25 Pulse Oximeter Continuous Start: 09/23/17 18: 28 Freq: RTQ4 Status: Active Document 09/26/17 16:14 [facility] (Rec: 09/26/17 16:15 [facility] [email or web address]) Pulse Oximetry Assessment Oxygen Saturation (92-100) 98 Oxygen Delivery Method Room Air Fraction of Inspired Oxygen (FIO2) 21 Equipment Usage Equipment in Use Continuous SpO2 Machine # 13 Intake & Output 09/25/17 09/26/17 09/27/17 06:59 06:59 06:59 Intake Total 1660 3059 920 Output Total 830 700 600 Balance 830 2359 320 Weight 149.6 kg 150.3 kg Exam: Dressings removed. Jordana is edema of left lower leg extending to the foot. Incision healing fairly wee. Area of questionable healing on the medial side with poor coaptation of wound edges due to edema. Wound rewrapped. Advise leg elevation to decrease edema. Results Laboratory Results: 09/26/17 05:30 09/26/17 05:30 09/25/17 09/25/17 09/26/17 14:17 23:50 05:30 WBC 7.9 RBC 2.96 L Hgb 8.0 L Hct 23.8 L MCV 80 MCH 27.1 MCHC 33.8 RDW 16.1 H Plt Count 272 Seg Neutrophils % 67.6 Lymphocytes % 19.1 Monocytes % 9.9 Eosinophils % 2.5 Basophils % 0.9 Absolute Neutrophils 5.3 Absolute Lymphocytes 1.5 Absolute Monocytes 0.8 Absolute Eosinophils 0.2 Absolute Basophils 0.1 Sodium Potassium Chloride Carbon Dioxide Anion Gap BUN Creatinine Est GFR ( Amer) Est GFR (Non-Af Amer) Glucose Calcium Magnesium Urine Color YELLOW Urine Appearance CLEAR Urine pH 6.0 Ur Specific [place] 1.010 Urine Protein 30 H Urine Glucose (UA) NEGATIVE Urine Ketones NEGATIVE Urine Blood SMALL H Urine Nitrite NEGATIVE Ur Leukocyte Esterase NEGATIVE Urine WBC (Auto) 3 Urine RBC (Auto) 3 Blood Type B POSITIVE Antibody Screen NEGATIVE 09/26/17 05:30 WBC RBC Hgb Hct MCV MCH MCHC RDW Plt Count Seg Neutrophils % Lymphocytes % Monocytes % Eosinophils % Basophils % Absolute Neutrophils Absolute Lymphocytes Absolute Monocytes Absolute Eosinophils Absolute Basophils Sodium 141.7 Potassium 4.6 Chloride 105 Carbon Dioxide 28 Anion Gap 9 BUN 34 H Creatinine 2.56 H Est GFR ( Amer) 25 L Est GFR (Non-Af Amer) 20 L Glucose 162 H Calcium 8.9 Magnesium 1.7 Urine Color Urine Appearance Urine pH Ur Specific [place] Urine Protein Urine Glucose (UA) Urine Ketones Urine Blood Urine Nitrite Ur Leukocyte Esterase Urine WBC (Auto) Urine RBC (Auto) Blood Type Antibody Screen 09/11/17 19:17 Creatine Kinase 277 H Impressions: Lower Extremity CT 09/11/17 00:00 IMPRESSION: Diffuse left foot and left ankle cellulitis Renal Ultrasound 09/13/17 00:00 IMPRESSION: Limited due to body habitus. No hydronephrosis Chest X-Ray 09/17/17 00:00 IMPRESSION: Left jugular central line tip superior vena cava Venous Doppler Study 09/24/17 08:28 IMPRESSION: NO EVIDENCE DVT OR SVT IN THE LEFT LEG. Assessment & Plan - Time Time Spent with patient: 15-24 minutes - Plan Summary Plan Summary: Continue left leg/foot elevation to decrease edema.
[2017-09-26] MEDS: INSULIN GLARGINE,HUM.REC.ANLOG 300 UNIT/3 ML INSULN.PEN SUBCUT SCH (22:00)
[2017-09-26] MEDS: SIMVASTATIN 40 MG TABLET PO SCH (23:30)
[2017-09-26] MEDS: OXYCODONE HCL IR 5 MG TABLET PO PRN (23:30)
[2017-09-27] MEDS: LANSOPRAZOLE 30 MG TAB.RAP.DR PO SCH (06:50)
[2017-09-27] MEDS: OXYCODONE HCL IR 5 MG TABLET PO PRN (06:50)
[2017-09-27] MEDS: CLONIDINE HCL 0.1 MG TABLET PO SCH ×4 (06:50→23:44)
[2017-09-27 08:47] LABS: HEMATOCRIT 24.7 % (36.0-47.0); HEMOGLOBIN 8.3 g/dL (12.0-15.5); HGB HCT DIFFERENCE 0.2; MEAN CORPUSCULAR HEMOGLOBIN 27.4 pg (27.0-33.4); MEAN CORPUSCULAR HGB CONC 33.8 g/dL (32.0-36.0); MEAN CORPUSCULAR VOLUME 81 fl (80-97); RED BLOOD COUNT 3.04 10^6/uL (3.72-5.28); RED CELL DISTRIBUTION WIDTH 16.3 % (11.5-14.0); WHITE BLOOD COUNT 7.5 10^3/uL (4.0-10.5)
[2017-09-27 09:09] LABS: ANION GAP 11 (5-19); BLOOD UREA NITROGEN 29 mg/dL (7-20); CALCIUM 8.9 mg/dL (8.4-10.2); CARBON DIOXIDE 27 mmol/L (22-30); CHLORIDE 105 mmol/L (98-107); CREATININE RESULT 2.31 mg/dL (0.52-1.25); GLUCOSE 170 mg/dL (75-110); MAGNESIUM 1.7 mg/dL (1.6-2.3); POTASSIUM 4.8 mmol/L (3.6-5.0); SODIUM 142.9 mmol/L (137-145)
[2017-09-27] MEDS: FAMOTIDINE 20 MG TABLET PO SCH (10:12)
[2017-09-27] MEDS: FLUTICASONE/SALMETEROL DISKUS 500-50 MCG/DOSE IH SCH ×2 (10:12→21:49)
[2017-09-27] MEDS: FERROUS SULFATE 325 MG TABLET PO SCH ×3 (10:13→17:05)
[2017-09-27] MEDS: PREGABALIN 75 MG CAPSULE PO SCH ×2 (10:13→21:49)
[2017-09-27] MEDS: ASPIRIN 81 MG TABLET, ENT COATED PO SCH (10:13)
--- NOTE | 2017-09-27 12:46 | PDOC PROGRESS REPORT ---
Subjective Progress Note for:: 09/27/17 Subjective:: Patient is a 42-year-old morbidly obese black female who is currently hospitalized secondary to sepsis from a diabetic foot infection complicated by peripheral arterial disease. Her workup is significant for osteomyelitis. She was taken to the operating room for a transmetatarsal amputation and later taken back for a revision. The patient developed acute and severe renal failure which is felt to be secondary to acute tubular necrosis from medication effect. The patient has had anemia. Her anemia is likely multifactorial from blood loss, critical illness and acute renal failure. She was given 2 units of packed red blood cells on 09/25/2017. In regards to her diabetes she was started on Lantus on 09/25/2017. Patient is complaining of constipation. Yesterday, she received a Dulcolax suppository but still has not had any results. Yesterday, PT was consulted for a walker. This is in the works. Also, surgery was concerned yesterday because the wound edges are not approximated due to edema. We are asking the patient to elevate the leg as much as possible. Reason For Visit: CELLULITIS Physical Exam Vital Signs: Temp Pulse Resp BP Pulse Ox 98.2 F 88 18 148/66 H 99 09/27/17 07:35 09/27/17 07:35 09/27/17 07:35 09/27/17 07:35 09/27/17 11:26 Pulse Oximeter Continuous Start: 09/23/17 18: 28 Freq: RTQ4 Status: Active Document 09/27/17 11:26 TPO (Rec: 09/27/17 11:26 TPO [email or web address]) Pulse Oximetry Assessment Oxygen Saturation (92-100) 99 Oxygen Flow Rate (L/min) 2 Oxygen Delivery Method Nasal Cannula Fraction of Inspired Oxygen (FIO2) 28 Equipment Usage Equipment in Use Continuous SpO2 Machine # 13 Intake & Output 09/26/17 09/27/17 09/28/17 06:59 06:59 06:59 Intake Total 3059 1320 Output Total 700 800 Balance 2359 520 Weight 150.3 kg 153.3 kg Additional comments: The patient is a morbidly obese black female. She does not appear to be in any distress. Her cognition and mentation appear to be appropriate and intact. Her facial appearance is unremarkable. Her lungs are noted to be clear to auscultation bilaterally. Her cardiac exam is regular without murmurs, gallops or rubs. The abdomen is soft and flat. Bowel sounds are present but are somewhat hypoactive. There is no guarding or rebound noted and there are no hernias or masses present. The patient is noted to be edematous particularly in the lower extremities left greater than right. Results Laboratory Results: 09/27/17 08:30 09/27/17 08:30 09/27/17 09/27/17 08:30 08:30 WBC 7.5 RBC 3.04 L Hgb 8.3 L Hct 24.7 L MCV 81 MCH 27.4 MCHC 33.8 RDW 16.3 H Plt Count 293 Sodium 142.9 Potassium 4.8 Chloride 105 Carbon Dioxide 27 Anion Gap 11 BUN 29 H Creatinine 2.31 H Est GFR ( Amer) 28 L Est GFR (Non-Af Amer) 23 L Glucose 170 H Calcium 8.9 Magnesium 1.7 09/11/17 19:17 Creatine Kinase 277 H Impressions: Lower Extremity CT 09/11/17 00:00 IMPRESSION: Diffuse left foot and left ankle cellulitis Renal Ultrasound 09/13/17 00:00 IMPRESSION: Limited due to body habitus. No hydronephrosis Chest X-Ray 09/17/17 00:00 IMPRESSION: Left jugular central line tip superior vena cava Venous Doppler Study 09/24/17 08:28 IMPRESSION: NO EVIDENCE DVT OR SVT IN THE LEFT LEG. Assessment & Plan - Diagnosis (1) Left leg cellulitis Is this a current diagnosis for this admission?: Yes Plan: Ceftriaxone will be resumed today. When final pathology is back if there is no osteomyelitis I will discontinue it. (2) Diabetes mellitus type 1.5 Is this a current diagnosis for this admission?: Yes Plan: Lantus was started 09/25/2017. Continue sliding scale insulin. Adjust as needed. Blood sugars are currently under good control. (3) Morbid obesity with BMI of 50.0-59.9, adult Is this a current diagnosis for this admission?: Yes (4) Sepsis affecting skin Is this a current diagnosis for this admission?: Yes Plan: This is resolving. (5) Hypertension Qualifiers: Hypertension type: essential hypertension Qualified Code(s): I10 - Essential (primary) hypertension Is this a current diagnosis for this admission?: Yes Plan: Stable. (6) Peripheral vascular disease Is this a current diagnosis for this admission?: Yes Plan: Patient will need further evaluation for peripheral arterial disease. However, due to her acute renal failure she is not a candidate for IV contrast and the studies must be placed on hold for now. (7) Guillain Velazquez syndrome Is this a current diagnosis for this admission?: No Plan: The patient carries a past medical history of Guillain Velazquez syndrome. The patient was last treated with IVIG in 2011. We need to monitor closely for recurrence. (8) Acute renal failure Qualifiers: Acute renal failure type: unspecified Qualified Code(s): N17.9 - Acute kidney failure, unspecified Is this a current diagnosis for this admission?: Yes Plan: Nephrology is following. I appreciate their assistance. The patient appears to have developed acute tubular necrosis which is likely secondary to combination of medication effect and possibly hypoperfusion from surgery. She is now plateauing and stabilizing. (9) Foot amputation status Qualifiers: Laterality: left Qualified Code(s): Z89.432 - Acquired absence of left foot Is this a current diagnosis for this admission?: Yes Plan: As per surgery. Due to edema we are trying to elevate the leg. Patient should start to auto diuresis. She is not a candidate for Lasix at this time secondary to her very severe renal failure. (10) Osteomyelitis Is this a current diagnosis for this admission?: Yes Plan: Presumably, this has been treated with surgery. We will need to make sure the final pathology shows clear margins. Until pathology is back I am going to continue the ceftriaxone. (11) Sepsis Is this a current diagnosis for this admission?: Yes Plan: Resolving. (12) Anemia Qualifiers: Anemia type: iron deficiency Iron deficiency anemia type: inadequate dietary iron intake Qualified Code(s): D50.8 - Other iron deficiency anemias Is this a current diagnosis for this admission?: Yes Plan: The patient received a 2 unit packed red blood cell transfusion 09/25/2017. She had an appropriate response. - Time Time Spent with patient: 25-34 minutes - Inpatient Certification Medical Necessity: Need Close Monitoring Due to Risk of Patient Decompensation, Need for Pain Control, Need for IV Antibiotics, Need for Surgery, Risk of Complication if Not Cared For in Hospital
[2017-09-27] MEDS ORDERED: BISACODYL 5 MG TABEC PO ONE (12:51)
[2017-09-27] MEDS ORDERED: BISACODYL 5 MG TABEC PO PRN (12:52)
[2017-09-27] MEDS ORDERED: ENOXAPARIN SODIUM INJ 30 MG/0.3 ML DISP.SYRIN SUBCUT ONE (14:00)
[2017-09-27] MEDS: INSULIN LISPRO 100 UNIT/ML 3 ML VIAL SUBCUT PRN (17:05)
[2017-09-27] MEDS ORDERED: CEFTRIAXONE 2 GM/D5W RTU 2 GM/50 ML RTUPB IV SCH (18:00)
[2017-09-27] MEDS: MORPHINE SULFATE 10 MG/ML INJ IV PRN (20:21)
[2017-09-27] MEDS: IPRATROPIUM/ALBUTEROL 0.5-2.5 MG/3 ML AMPUL NEB PRN (20:48)
--- NOTE | 2017-09-27 21:25 | PDOC PROGRESS REPORT ---
Subjective Progress Note for:: 09/27/17 Subjective:: Pains left TMA Reason For Visit: CELLULITIS Physical Exam Vital Signs: Temp Pulse Resp BP Pulse Ox 98.1 F 102 H 20 158/83 H 98 09/27/17 20:00 09/27/17 20:48 09/27/17 20:48 09/27/17 20:00 09/27/17 20:48 Pulse Oximeter Continuous Start: 09/23/17 18: 28 Freq: RTQ4 Status: Active Document 09/27/17 20:35 CMI (Rec: 09/27/17 20:37 CMI [email or web address]) Pulse Oximetry Assessment Oxygen Saturation (92-100) 93 Oxygen Flow Rate (L/min) 2 Oxygen Delivery Method Nasal Cannula Equipment Usage Equipment in Use Continuous SpO2 Machine # 13 Intake & Output 09/26/17 09/27/17 09/28/17 06:59 06:59 06:59 Intake Total 3059 1320 1610 Output Total 700 800 900 Balance 2359 520 710 Weight 150.3 kg 153.3 kg Exam: Dressing intact Still edematous left leg. Results Laboratory Results: 09/27/17 08:30 09/27/17 08:30 09/27/17 09/27/17 08:30 08:30 WBC 7.5 RBC 3.04 L Hgb 8.3 L Hct 24.7 L MCV 81 MCH 27.4 MCHC 33.8 RDW 16.3 H Plt Count 293 Sodium 142.9 Potassium 4.8 Chloride 105 Carbon Dioxide 27 Anion Gap 11 BUN 29 H Creatinine 2.31 H Est GFR ( Amer) 28 L Est GFR (Non-Af Amer) 23 L Glucose 170 H Calcium 8.9 Magnesium 1.7 09/11/17 19:17 Creatine Kinase 277 H Impressions: Lower Extremity CT 09/11/17 00:00 IMPRESSION: Diffuse left foot and left ankle cellulitis Renal Ultrasound 09/13/17 00:00 IMPRESSION: Limited due to body habitus. No hydronephrosis Chest X-Ray 09/17/17 00:00 IMPRESSION: Left jugular central line tip superior vena cava Venous Doppler Study 09/24/17 08:28 IMPRESSION: NO EVIDENCE DVT OR SVT IN THE LEFT LEG. Assessment & Plan - Time Time Spent with patient: 15-24 minutes - Plan Summary Plan Summary: Continue left leg elevation Continue antibiotic tx
[2017-09-27] MEDS ORDERED: INSULIN GLARGINE,HUM.REC.ANLOG 1,000 UNIT/10 ML UNIT SUBCUT ONE (21:33)
[2017-09-27] MEDS: SIMVASTATIN 40 MG TABLET PO SCH (21:49)
[2017-09-27] MEDS: INSULIN GLARGINE,HUM.REC.ANLOG 300 UNIT/3 ML INSULN.PEN SUBCUT SCH (21:50)
[2017-09-28] MEDS: CLONIDINE HCL 0.1 MG TABLET PO SCH ×4 (06:01→23:56)
[2017-09-28] MEDS: LANSOPRAZOLE 30 MG TAB.RAP.DR PO SCH (06:02)
[2017-09-28 06:56] LABS: HEMATOCRIT 25.8 % (36.0-47.0); HEMOGLOBIN 8.6 g/dL (12.0-15.5); MEAN CORPUSCULAR HGB CONC 33.4 g/dL (32.0-36.0); MEAN CORPUSCULAR VOLUME 81 fl (80-97); WHITE BLOOD COUNT 7.4 10^3/uL (4.0-10.5)
[2017-09-28 07:04] LABS: ANION GAP 10 (5-19); BLOOD UREA NITROGEN 25 mg/dL (7-20); CALCIUM 8.6 mg/dL (8.4-10.2); CARBON DIOXIDE 29 mmol/L (22-30); CHLORIDE 104 mmol/L (98-107); CREATININE RESULT 2.22 mg/dL (0.52-1.25); GLUCOSE 115 mg/dL (75-110); MAGNESIUM 1.6 mg/dL (1.6-2.3); PHOSPHORUS 4.7 mg/dL (2.5-4.5); POTASSIUM 4.8 mmol/L (3.6-5.0); SODIUM 142.6 mmol/L (137-145)
[2017-09-28] MEDS ORDERED: ONDANSETRON HCL INJ/PF 4 MG/2 ML SDV IV PRN (08:30)
--- NOTE | 2017-09-28 09:53 | PDOC PROGRESS REPORT ---
Subjective Progress Note for:: 09/28/17 Reason For Visit: CELLULITIS Patient getting about with a walker. Physical Exam Vital Signs: Temp Pulse Resp BP Pulse Ox 97.5 F 100 20 160/89 H 98 09/27/17 23:35 09/27/17 23:35 09/27/17 23:35 09/27/17 23:35 09/28/17 04:00 Pulse Oximeter Continuous Start: 09/23/17 18: 28 Freq: RTQ4 Status: Active Document 09/28/17 04:00 CMI (Rec: 09/28/17 04:22 CMI [email or web address]) Pulse Oximetry Assessment Oxygen Saturation (92-100) 98 Oxygen Delivery Method CPAP Fraction of Inspired Oxygen (FIO2) 21 Equipment Usage Equipment in Use Continuous SpO2 Machine # 13 Intake & Output 09/27/17 09/28/17 09/29/17 06:59 06:59 06:59 Intake Total 1320 2530 Output Total 800 2000 Balance 520 530 Weight 153.3 kg 152 kg General appearance: PRESENT: no acute distress Extremities exam: PRESENT: other - Dressing removed; sutures intact; edema down ; no cellulitis. Results Laboratory Results: 09/28/17 06:12 09/28/17 06:12 09/28/17 09/28/17 06:12 06:12 WBC 7.4 RBC 3.20 L Hgb 8.6 L Hct 25.8 L MCV 81 MCH 27.0 MCHC 33.4 RDW 16.0 H Plt Count 313 Sodium 142.6 Potassium 4.8 Chloride 104 Carbon Dioxide 29 Anion Gap 10 BUN 25 H Creatinine 2.22 H Est GFR ( Amer) 29 L Est GFR (Non-Af Amer) 24 L Glucose 115 H Calcium 8.6 Phosphorus 4.7 H Magnesium 1.6 09/11/17 19:17 Creatine Kinase 277 H Impressions: Lower Extremity CT 09/11/17 00:00 IMPRESSION: Diffuse left foot and left ankle cellulitis Renal Ultrasound 09/13/17 00:00 IMPRESSION: Limited due to body habitus. No hydronephrosis Chest X-Ray 09/17/17 00:00 IMPRESSION: Left jugular central line tip superior vena cava Venous Doppler Study 09/24/17 08:28 IMPRESSION: NO EVIDENCE DVT OR SVT IN THE LEFT LEG. Assessment & Plan - Diagnosis (1) Left leg cellulitis Is this a current diagnosis for this admission?: Yes Plan: Now 5 days status post completion transmetatarsal amputation and stump closure, doing reasonably well, no evidence of abscess. Incision approximated in areas, anticipate epithelializing in over time. Recommendations: 1. I believe patient can be managed on outpatient basis with wound care, dressing changes. 2. Since her septic versus controlled, and infection eradicated, I think we can discontinue ceftriaxone. 3. Patient's creatinine will need to be followed to ensure resolution. 4. Patient can follow-up with [facility] in 1 week;
[2017-09-28] MEDS: ASPIRIN 81 MG TABLET, ENT COATED PO SCH (09:55)
[2017-09-28] MEDS: FAMOTIDINE 20 MG TABLET PO SCH (09:55)
[2017-09-28] MEDS: FLUTICASONE/SALMETEROL DISKUS 500-50 MCG/DOSE IH SCH ×2 (09:55→22:06)
[2017-09-28] MEDS: FERROUS SULFATE 325 MG TABLET PO SCH ×3 (09:55→17:12)
[2017-09-28] MEDS: PREGABALIN 75 MG CAPSULE PO SCH ×2 (09:56→22:06)
[2017-09-28] MEDS ORDERED: ENOXAPARIN SODIUM INJ 30 MG/0.3 ML DISP.SYRIN SUBCUT SCH (10:00)
[2017-09-28] MEDS ORDERED: MAGNESIUM OXIDE 400 MG TABLET PO SCH (10:00)
[2017-09-28 11:14] LABS: APPEARANCE,URINE CLEAR; BILIRUBIN,URINE NEGATIVE (NEGATIVE); GLUCOSE, URINE NEGATIVE (NEGATIVE); KETONES,URINE NEGATIVE (NEGATIVE); LEUKOCYTE ESTERASE,URINE NEGATIVE (NEGATIVE); NITRITE,URINE NEGATIVE (NEGATIVE); PROTEIN,URINE 30 mg/dL (NEGATIVE); URINE SPECIFIC GRAVITY 1.009; UROBILINOGEN,URINE NEGATIVE mg/dL (<2.0)
--- NOTE | 2017-09-28 11:54 | PDOC DISCHARGE SUMMARY ---
General - Admit/Disc Date/PCP Admission Date/Primary Care Provider: 09/11/17 18:38 BRANDI LADD MD Discharge Date: 09/28/17 - Discharge Diagnosis (1) Left leg cellulitis Is this a current diagnosis for this admission?: Yes (2) Diabetes mellitus type 1.5 Is this a current diagnosis for this admission?: Yes (3) Morbid obesity with BMI of 50.0-59.9, adult Is this a current diagnosis for this admission?: Yes (4) Sepsis affecting skin Is this a current diagnosis for this admission?: Yes (5) Hypertension Is this a current diagnosis for this admission?: Yes (6) Peripheral vascular disease Is this a current diagnosis for this admission?: Yes (7) Guillain Velazquez syndrome Is this a current diagnosis for this admission?: No (8) Acute renal failure Is this a current diagnosis for this admission?: Yes (9) Foot amputation status Is this a current diagnosis for this admission?: Yes (10) Osteomyelitis Is this a current diagnosis for this admission?: Yes (11) Sepsis Is this a current diagnosis for this admission?: Yes (12) Anemia Is this a current diagnosis for this admission?: Yes (13) Hematuria Is this a current diagnosis for this admission?: Yes - Additional Information Resuscitation Status: Full Code Discharge Diet: Diabetic Discharge Activity: Keep Legs Elevated Home Medications: Albuterol Sulfate [Proair HFA Inhalation Aerosol 8.5 gm MDI] 2 puff IH Q6HP PRN 09/06/17 Aspirin [Aspirin EC] 81 mg PO DAILY 09/06/17 Fluticasone/Salmeterol [Advair 500-50 Diskus 28 Dose] 1 puff IH Q12 09/06/17 Insulin Aspart [Novolog Insulin (Aspart) 100 unit/mL] 0 units SUBCUT .SLIDING SCALE 09/06/17 Omeprazole 20 mg PO BID 09/06/17 Simvastatin [Zocor 40 mg Tablet] 40 mg PO QHS 09/06/17 Cetirizine HCl [Zyrtec 10 mg Tablet] 10 mg PO DAILY 09/11/17 Oxycodone HCl/Acetaminophen [Percocet 7.5-325 mg Tablet] 1 tab PO Q8HP PRN 09/11 Pregabalin [Lyrica] 150 mg PO Q8HP PRN 11/24/17 Bisacodyl [Dulcolax 5 mg Tablet] 10 mg PO DAILYP PRN tabec 09/28/17 Clonidine HCl [Catapres 0.1 mg Tablet] 0.1 mg PO Q6 30 Days #60 tablet 09/28/17 Ferrous Sulfate [Feosol 325 mg Tablet] 325 mg PO TID 30 Days #90 tablet Insulin Detemir [Levemir] 10 unit SQ QHS 14 Days #1 vial 09/28/17 Magnesium Oxide [Mag-Ox 400 mg Tablet] 400 mg PO DAILY 30 Days #30 tablet Pregabalin [Lyrica 75 mg Capsule] 75 mg PO Q12 30 Days #60 capsule 09/28/17 History of Present Illness History of Present Illness: RUTH WOOD is a 42 year old female with underlying diabetes. She was admitted to the hospital on 06 September for left lower extremity cellulitis. She was discharged on 09 September. During her last hospitalization she was treated with IV vancomycin and Zosyn. She was discharged on Augmentin. During her last hospitalization she had lower extremity vascular structures. These were fairly unremarkable, but, there were some abnormalities in the vascular structures of the left leg. The patient had an MRI of the left lower extremity that did not show osteomyelitis or abscess formation. Since the patient was discharged she felt well until yesterday. Yesterday, when she woke up she started to have more pain in her left foot. She also had a small blister on the top of her foot. This has gotten progressively larger. She also feels that the pain is getting progressively worse. She comes into the emergency department due to concern of progressive infection. Hospital Course Hospital Course: The patient was admitted with a diabetic foot infection. She was initially placed on Zosyn and vancomycin. The patient was taken to the operating room on 09/13/2017 for a left foot transmetatarsal amputation. Initially, the surgeons tried to preserve the fifth toe, however, the patient had a revision of the amputation on 09/23/2017 and the fifth toe was removed at that time. The patient 's culture grew Peptostreptococcus from the broth only. On hospital day #2 the patient developed renal failure. This became progressive and nephrology was consulted. It is felt that the patient's renal failure is secondary to acute tubular necrosis precipitated by vancomycin toxicity. The patient's antibiotics were changed to ceftriaxone. Today, I evaluated the patient with surgery. It is felt that any component of osteomyelitis has been removed with surgery. The ceftriaxone is being discontinued. The patient will be discharged home to home health. Home health will assist with dressing changes. The patient will need close follow-up with nephrology for laboratory work later this week. She will follow up with surgery in 1 week and she will follow- up with her primary healthcare analyst in 1-2 weeks. During this hospitalization most of the patient's diabetic medications were discontinued secondary to her renal failure. She will be discharged on low-dose Levemir with a sliding scale. Patient was noted to have some hematuria during this admission and this will need to be followed up as well. Physical Exam Vital Signs: Temp Pulse Resp BP Pulse Ox 98.0 F 87 20 152/81 H 98 09/28/17 07:34 09/28/17 10:07 09/28/17 10:07 09/28/17 07:34 09/28/17 10:07 Pulse Oximeter Continuous Start: 09/23/17 18: 28 Freq: RTQ4 Status: Active Document 09/28/17 10:07 TPO (Rec: 09/28/17 10:09 TPO [email or web address]) Pulse Oximetry Assessment Oxygen Saturation (92-100) 98 Oxygen Delivery Method Room Air Fraction of Inspired Oxygen (FIO2) 21 Equipment Usage Equipment in Use Continuous SpO2 Machine # 13 Intake & Output 09/27/17 09/28/17 09/29/17 06:59 06:59 06:59 Intake Total 1320 2530 Output Total 800 2000 Balance 520 530 Weight 153.3 kg 152 kg Additional comments: The patient was in good spirits today. Her facial appearance is normal with exception of her right eye. She does occasionally have a droopy eyelid, but, this is secondary to the fact that she has a glass eye. Otherwise, her facial appearance is normal. Her lungs are clear to auscultation bilaterally. Her cardiac exam is regular without murmurs, gallops or rubs. The abdomen is obese but soft and flat. The lower extremities actually show much less edema today. The wound was examined with surgery today. It appears to be healing nicely. Results Laboratory Results: 09/28/17 06:12 09/28/17 06:12 09/28/17 09/28/17 09/28/17 06:12 06:12 10:40 WBC 7.4 RBC 3.20 L Hgb 8.6 L Hct 25.8 L MCV 81 MCH 27.0 MCHC 33.4 RDW 16.0 H Plt Count 313 Sodium 142.6 Potassium 4.8 Chloride 104 Carbon Dioxide 29 Anion Gap 10 BUN 25 H Creatinine 2.22 H Est GFR ( Amer) 29 L Est GFR (Non-Af Amer) 24 L Glucose 115 H Calcium 8.6 Phosphorus 4.7 H Magnesium 1.6 Urine Color YELLOW Urine Appearance CLEAR Urine pH 6.0 Ur Specific [place] 1.009 Urine Protein 30 H Urine Glucose (UA) NEGATIVE Urine Ketones NEGATIVE Urine Blood SMALL H Urine Nitrite NEGATIVE Ur Leukocyte Esterase NEGATIVE Urine WBC (Auto) 7 Urine RBC (Auto) 2 09/11/17 19:17 Creatine Kinase 277 H Impressions: Lower Extremity CT 09/11/17 00:00 IMPRESSION: Diffuse left foot and left ankle cellulitis Renal Ultrasound 09/13/17 00:00 IMPRESSION: Limited due to body habitus. No hydronephrosis Chest X-Ray 09/17/17 00:00 IMPRESSION: Left jugular central line tip superior vena cava Venous Doppler Study 09/24/17 08:28 IMPRESSION: NO EVIDENCE DVT OR SVT IN THE LEFT LEG. Plan Discharge Plan: 1. The patient will be discharged on a diabetic diet 2. The patient will be discharged to home health. She will have a walker to assist with ambulation. When she is not on her feet she is to elevate her legs , particularly the left leg above the level of her heart. 3. The patient needs to follow-up with nephrology no later than of this week. 4. The patient is to follow-up with the [facility] in 1 week 4. The patient should follow-up with her primary healthcare analyst in 1-2 weeks. Time Spent: Greater than 30 Minutes
[2017-09-28] MEDS: OXYCODONE HCL IR 5 MG TABLET PO PRN ×2 (13:42→20:13)
[2017-09-28] MEDS ORDERED: HYDRALAZINE HCL INJ/PF 20 MG/1 ML SDV IV PRN (14:30)
[2017-09-28] MEDS ORDERED: BISACODYL 5 MG TABEC PO PRN (14:30)
[2017-09-28] MEDS: ACETAMINOPHEN 325 MG TABLET PO PRN (20:13)
[2017-09-28] MEDS: INSULIN LISPRO 100 UNIT/ML 3 ML VIAL SUBCUT PRN (22:06)
[2017-09-28] MEDS: INSULIN GLARGINE,HUM.REC.ANLOG 300 UNIT/3 ML INSULN.PEN SUBCUT SCH (22:06)
[2017-09-28] MEDS: SIMVASTATIN 40 MG TABLET PO SCH (22:06)
[2017-09-29] MEDS: LANSOPRAZOLE 30 MG TAB.RAP.DR PO SCH (06:20)
[2017-09-29] MEDS: CLONIDINE HCL 0.1 MG TABLET PO SCH (06:20)
[2017-09-29 09:08] VITALS: BP 145/87
[2017-09-29] MEDS: OXYCODONE HCL IR 5 MG TABLET PO PRN (09:12)
== END 2017-09-29 09:43 | disposition home health service (06) | DRG 853 ==
LOC: ER 16:19 → EH 18:38 → UNDOADMIN 18:38 → 4S 21:25
PROVIDERS: ADMIT Internal Medicine Pulmonary Disease; ATTEND Internal Medicine
PROC: 0JBR0ZZ Excision of Left Foot Subcutaneous Tissue and Fascia, Open Approach (ICD-10-PCS; 2017-09-12)
PROC: 0Y6N0ZB Detachment at Left Foot, Partial 2nd Ray, Open Approach (ICD-10-PCS; 2017-09-13)
PROC: 0Y6N0ZC Detachment at Left Foot, Partial 3rd Ray, Open Approach (ICD-10-PCS; 2017-09-13)
PROC: 0Y6N0ZD Detachment at Left Foot, Partial 4th Ray, Open Approach (ICD-10-PCS; 2017-09-13)
PROC: 0Y6N0Z9 Detachment at Left Foot, Partial 1st Ray, Open Approach (ICD-10-PCS; principal; 2017-09-13 11:00)
PROC: 30233N1 Transfusion of Nonautologous Red Blood Cells into Peripheral Vein, Percutaneous Approach (ICD-10-PCS; 2017-09-14)
PROC: 02HV33Z Insertion of Infusion Device into Superior Vena Cava, Percutaneous Approach (ICD-10-PCS; 2017-09-17)
PROC: 0Y6N0ZF Detachment at Left Foot, Partial 5th Ray, Open Approach (ICD-10-PCS; 2017-09-23)
PROC: 30233N1 Transfusion of Nonautologous Red Blood Cells into Peripheral Vein, Percutaneous Approach (ICD-10-PCS; 2017-09-25)
DX: A41.9 Sepsis, unspecified organism (principal); N17.0 Acute kidney failure with tubular necrosis; L03.116 Cellulitis of left lower limb; Z68.43 Body mass index [BMI] 50.0-59.9, adult; G61.0 Guillain-Barre syndrome; M86.9 Osteomyelitis, unspecified; E11.628 Type 2 diabetes mellitus with other skin complications; T36.8X5A Adverse effect of other systemic antibiotics, initial encounter; Y92.239 Unspecified place in hospital as the place of occurrence of the external cause; E87.5 Hyperkalemia; E11.319 Type 2 diabetes mellitus with unspecified diabetic retinopathy without macular edema; D50.8 Other iron deficiency anemias; E66.01 Morbid (severe) obesity due to excess calories; I10 Essential (primary) hypertension; E78.5 Hyperlipidemia, unspecified; I73.9 Peripheral vascular disease, unspecified; R31.9 Hematuria, unspecified; K59.00 Constipation, unspecified; Z79.82 Long term (current) use of aspirin; Z79.4 Long term (current) use of insulin; Z79.84 Long term (current) use of oral hypoglycemic drugs; Z79.899 Other long term (current) drug therapy; F17.210 Nicotine dependence, cigarettes, uncomplicated
CPT/HCPCS: 01470; 01480; 36415; 36430; 71010; 76775; 80048; 80053; 80202; 81001; 82272; 82550; 82565; 82607; 82728; 82746; 82962; 83036; 83540; 83550; 83735; 84100; 84132; 84156; 84466; 85025; 85027; 85045; 85610; 85730; 86850; 86900; 86901; 86920; 87040; 87070; 87075; 87077; 87205; 88304; 88305; 88311; 93005; 93010; 93971; 94660; 94762; 99284; C1751; G8978-GP; G8979-GP; G8980-GP; J0131; J0330; J0360; J0692; J0696; J1100; J1170; J1200; J1642; J1650; J1741; J1815; J1885; J1940; J2250; J2270; J2405; J2543; J2704; J2765; J3010; J3370; J3475; J3490; J7030; J7060; J7120; J7620; P9016

== ENCOUNTER → 2017-10-07 | Outpatient (CLI) | payer MEDICARE, MEDICAID ==
[2017-10-07 16:03] LABS: ABSOLUTE BASOPHILS # (AUTO) 0.1 10^3/uL (0.0-0.2); ABSOLUTE EOSINOPHILS # (AUTO) 0.4 10^3/uL (0.0-0.6); ABSOLUTE LYMPHOCYTES (AUTO) 1.7 10^3/uL (0.5-4.7); ABSOLUTE MONOCYTES (AUTO) 0.6 10^3/uL (0.1-1.4); ABSOLUTE NEUT (AUTO) 3.6 10^3/uL (1.7-8.2); BASOPHILS % (AUTO) 1.2 % (0-2); EOSINOPHILS % (AUTO) 6.9 % (0-6); HEMATOCRIT 29.1 % (36.0-47.0); HEMOGLOBIN 9.8 g/dL (12.0-15.5); HGB HCT DIFFERENCE 0.3; LYMPHOCYTES % (AUTO) 26.9 % (13-45); MEAN CORPUSCULAR HGB CONC 33.6 g/dL (32.0-36.0); MEAN CORPUSCULAR VOLUME 80 fl (80-97); MONOCYTES % (AUTO) 9.6 % (3-13); RED BLOOD COUNT 3.62 10^6/uL (3.72-5.28); RED CELL DISTRIBUTION WIDTH 16.5 % (11.5-14.0); SEGMENTED NEUTROPHILS % (AUTO) 55.4 % (42-78); WHITE BLOOD COUNT 6.5 10^3/uL (4.0-10.5)
[2017-10-07 16:21] LABS: ANION GAP 11 (5-19); BLOOD UREA NITROGEN 11 mg/dL (7-20); CALCIUM 9.1 mg/dL (8.4-10.2); CARBON DIOXIDE 26 mmol/L (22-30); CHLORIDE 106 mmol/L (98-107); CREATININE RESULT 1.37 mg/dL (0.52-1.25); GLUCOSE 114 mg/dL (75-110); POTASSIUM 4.5 mmol/L (3.6-5.0); SODIUM 143.2 mmol/L (137-145)
== END ==
LOC: OD 15:05
PROVIDERS: ATTEND Internal Medicine Nephrology
DX: N18.9 Chronic kidney disease, unspecified (principal)
CPT/HCPCS: 36415; 80048; 85025

== ENCOUNTER 2017-10-15 21:46 | Emergency (ER) | payer MEDICARE, MEDICAID ==
[2017-10-15 21:51] VITALS: BP 155/85
--- NOTE | 2017-10-15 22:24 | ER Document Report ---
ED Wound - General Chief Complaint: Foot Injury Stated Complaint: LEFT FOOT INJURY Time Seen by Provider: 10/15/17 22:18 Notes: The patient is a 42-year-old female, s/p transmetatarsal amputation and stump closure about 2 weeks ago, presents after she bumped her left foot against a hard surface and noticed a small amount of blood coming through her dressing. Patient has home nursing that comes to her house, but they did not come today. She denies pain, increased discharge or active bleeding at this time. TRAVEL OUTSIDE OF THE [place] IN LAST 30 DAYS: No - Related Data Allergies/Adverse Reactions: No Known Allergies Allergy (Verified 10/15/17 21:46) Past Medical History - General Information source: Patient - Social History Smoking Status: Unknown if Ever Smoked Family History: CAD, DM, Hyperlipidemia, Hypertension Patient has suicidal ideation: No Patient has homicidal ideation: No - Past Medical History Cardiac Medical History: Reports: Hx Hypercholesterolemia, Hx Hypertension Pulmonary Medical History: Reports: Hx Asthma, Hx Sleep Apnea - She wears CPAP at home Endocrine Medical History: Reports: Hx Diabetes Mellitus Type 2 Renal/ Medical History: Denies: Hx Peritoneal Dialysis Musculoskeltal Medical History: Reports Hx Musculoskeletal Deformity - Carpal tunnel and heel spurs Past Surgical History: Reports: Hx Section - Twice, Hx Orthopedic Surgery - Heel spur surgery, bilateral carpal tunnel surgery, Other - Right eye surgery as a child - Immunizations Immunizations up to date: Yes Hx Diphtheria, Pertussis, Tetanus Vaccination: No Review of Systems - Review of Systems Notes: REVIEW OF SYSTEMS: CONSTITUTIONAL: -fevers, -chills EENT: -eye pain, -difficulty swallowing, -nasal congestion CARDIOVASCULAR:-chest pain, -syncope. RESPIRATORY: -cough, -SOB GASTROINTESTINAL: -abdominal pain, - nausea, -vomiting, -diarrhea GENITOURINARY: -dysuria, -hematuria MUSCULOSKELETAL: +left wound wound, -back pain, -neck pain SKIN: -rash or skin lesions. HEMATOLOGIC: -easy bruising or bleeding. LYMPHATIC: -swollen, enlarged glands. NEUROLOGICAL: -altered mental status or loss of consciousness, -headache, - neurologic symptoms PSYCHIATRIC: -anxiety, -depression. ALL OTHER SYSTEMS REVIEWED AND NEGATIVE. Physical Exam - Vital signs Vitals: Temp Pulse Resp BP Pulse Ox 97.8 F 85 16 155/85 H 100 10/15/17 21:51 10/15/17 21:51 10/15/17 21:51 10/15/17 21:51 10/15/17 21:51 - Notes Notes: PHYSICAL EXAMINATION: GENERAL: Well-appearing, well-nourished and in no acute distress. HEAD: Atraumatic, normocephalic. EYES: Pupils equal round and reactive to light, extraocular movements intact, sclera anicteric, conjunctiva are normal. ENT: nares patent, oropharynx clear without exudates. Moist mucous membranes. NECK: Normal range of motion, supple without lymphadenopathy LUNGS: Breath sounds clear to auscultation bilaterally and equal. No wheezes rales or rhonchi. HEART: Regular rate and rhythm without murmurs ABDOMEN: Soft, nontender, normoactive bowel sounds. No guarding, no rebound. No masses appreciated. EXTREMITIES: Transmetatarsal surgical wound without discharge or active bleeding , medial area of wound slightly open (similar to when she was discharged 2 weeks ago). Normal range of motion, no pitting or edema. No cyanosis. NEUROLOGICAL: Cranial nerves grossly intact. Normal speech, normal gait. Normal sensory and motor exams. PSYCH: Normal mood, normal affect. SKIN: Warm, Dry, normal turgor, no rashes or lesions noted. Course - Re-evaluation Re-evalutation: Patient has no active bleeding or signs of infection on exam. The wound appears similar to when she was discharged 2 weeks ago from [facility]. Wound redressed instructed to follow-up with wound care and her surgeon. - Vital Signs Vital signs: Temp Pulse Resp BP Pulse Ox 97.8 F 85 16 155/85 H 100 10/15/17 21:51 10/15/17 21:51 10/15/17 21:51 10/15/17 21:51 10/15/17 21:51 Discharge - Discharge Clinical Impression: Visit for wound check Condition: Stable Disposition: HOME, SELF-CARE Additional Instructions: There is no bleeding or evidence of infection on your wound check today. Follow -up with your home wound care nurse and surgeon. Return to the ER if you notice worsening bleeding or signs of infection.
== END 2017-10-15 22:45 | disposition home or self-care (01) ==
LOC: ER 21:46
DX: S99.922A Unspecified injury of left foot, initial encounter (principal); M79.672 Pain in left foot; W22.8XXA Striking against or struck by other objects, initial encounter; Z89.422 Acquired absence of other left toe(s)
CPT/HCPCS: 99283

== ENCOUNTER → 2017-11-03 | Outpatient (CLI) | payer MEDICARE, MEDICAID ==
--- NOTE | 2017-11-03 13:41 | XCELERA REPORT ---
[address] [address] Lower Extremity Arterial Evaluation Name: RUTH WOOD Age: 42 yrs Gender: Female : 1975 Patient Status: Outpatient Patient Location: Study Date: 11/03/2017 09:54 AM Procedure: A color flow and duplex scan of the lower extremity arteries was performed bilaterally with velocity and waveform anaylsis. Ankle brachial indicies performed. Reason For Study: ULCER Ordering Physician: CHELY NOBLES Performed By: Tammy Gold Measurements and Calculations Right Left REPORTING MANAGER PSV 115.0 140.4 cm/sec Prox PFA PSV -74.6 -70.7 cm/sec Prox SFA PSV 91.2 124.6 cm/sec Mid SFA PSV -75.1 -101.5 cm/sec Dist SFA PSV -78.6 -149.4 cm/sec Prox Pop A PSV 86.9 121.3 cm/sec Dist KLEVER PSV 103.9 124.1 cm/sec Dist CASH RECONCILIATION SPECIALIST PSV 94.7 140.8 cm/sec Jeffery Pedis PSV 96.9 94.8 cm/sec Right Side Arterial Evaluation Normal velocity and triphasic waveforms noted from the Common Femoral artery to the infregeniculate vessels. 0 % stenosis. Ankle Brachial index is 1.3. Left Side Arterial Evaluation Normal velocity and biphasic waveforms noted from the Common Femoral artery to the infrageniculate vessels. 0-19 % stenosis. At the Aorta Iliac inflow. Ankle Brachial index is 1.1. Interpretation Summary No hemodynamically significant lesions in the right lower extremity only, on duplex imaging, at rest. Mild hemodynamically significant lesions in the left lower extremity only, on duplex imaging, at rest. : CHELY NOBLES > Chely Nobles
== END ==
LOC: SP 09:34
PROVIDERS: ATTEND Surgery
DX: L97.523 Non-pressure chronic ulcer of other part of left foot with necrosis of muscle (principal)
CPT/HCPCS: 93922; 93925

== ENCOUNTER → 2017-11-06 | Outpatient (CLI) | payer MEDICARE, MEDICAID ==
[2017-11-06 15:23] LABS: ABSOLUTE BASOPHILS # (AUTO) 0.1 10^3/uL (0.0-0.2); ABSOLUTE EOSINOPHILS # (AUTO) 0.2 10^3/uL (0.0-0.6); ABSOLUTE LYMPHOCYTES (AUTO) 2.6 10^3/uL (0.5-4.7); ABSOLUTE MONOCYTES (AUTO) 0.5 10^3/uL (0.1-1.4); ABSOLUTE NEUT (AUTO) 5.3 10^3/uL (1.7-8.2); BASOPHILS % (AUTO) 0.7 % (0-2); EOSINOPHILS % (AUTO) 2.6 % (0-6); HEMATOCRIT 27.3 % (36.0-47.0); HEMOGLOBIN 9.1 g/dL (12.0-15.5); LYMPHOCYTES % (AUTO) 30.2 % (13-45); MEAN CORPUSCULAR HGB CONC 33.4 g/dL (32.0-36.0); MEAN CORPUSCULAR VOLUME 81 fl (80-97); MONOCYTES % (AUTO) 5.4 % (3-13); PLATELET COUNT 400 10^3/uL (150-450); RED BLOOD COUNT 3.39 10^6/uL (3.72-5.28); SEGMENTED NEUTROPHILS % (AUTO) 61.1 % (42-78); TOTAL CELLS COUNTED % (AUTO) 100 %; WHITE BLOOD COUNT 8.7 10^3/uL (4.0-10.5)
[2017-11-06 15:29] LABS: APPEARANCE,URINE CLOUDY; BILIRUBIN,URINE NEGATIVE (NEGATIVE); COLOR,URINE RED; GLUCOSE, URINE NEGATIVE (NEGATIVE); KETONES,URINE NEGATIVE (NEGATIVE); LEUKOCYTE ESTERASE,URINE SMALL (NEGATIVE); NITRITE,URINE NEGATIVE (NEGATIVE); PROTEIN,URINE 100 mg/dL (NEGATIVE); URINE SPECIFIC GRAVITY 1.014; UROBILINOGEN,URINE NEGATIVE mg/dL (<2.0)
[2017-11-06 16:17] LABS: ANION GAP 10 (5-19); BLOOD UREA NITROGEN 22 mg/dL (7-20); CALCIUM 9.3 mg/dL (8.4-10.2); CARBON DIOXIDE 29 mmol/L (22-30); CHLORIDE 101 mmol/L (98-107); GLUCOSE 152 mg/dL (75-110); MAGNESIUM 1.9 mg/dL (1.6-2.3); PHOSPHORUS 4.6 mg/dL (2.5-4.5); POTASSIUM 5.1 mmol/L (3.6-5.0); SODIUM 139.9 mmol/L (137-145)
== END ==
LOC: OD 14:13
PROVIDERS: ATTEND Internal Medicine Nephrology
DX: N17.9 Acute kidney failure, unspecified (principal); E83.39 Other disorders of phosphorus metabolism; D64.9 Anemia, unspecified
CPT/HCPCS: 36415; 80048; 81001; 83735; 84100; 85025; 87086

== ENCOUNTER → 2017-11-06 | Outpatient (CLI) | payer MEDICARE, MEDICAID ==
--- NOTE | 2017-11-06 13:49 | RADIOLOGY REPORT (SQ) ---
EXAM DESCRIPTION: FOOT LEFT COMPLETE COMPLETED DATE/TIME: 11/06/2017 1:06 pm REASON FOR STUDY: TYPE 2 DIABETES MELLITUS WITH FOOT ULCER E11.621 TYPE 2 DIABETES MELLITUS WITH FO OT ULCER COMPARISON: None. NUMBER OF VIEWS: Three views. TECHNIQUE: AP, lateral and oblique radiographic images acquired of the left foot. LIMITATIONS: None. FINDINGS: MINERALIZATION: Normal. BONES: The patient has undergone amputation of the distal foot at the level of the proximal metatarsa ls since the previous study. No cortical erosions or lytic areas are identified to suggest bony invo lvement by osteomyelitis P JOINTS: No effusions. SOFT TISSUES: Postsurgical changes are identified in the distal foot related amputation of the distal foot OTHER: No other significant finding. IMPRESSION: Postsurgical changes as noted above. No cortical erosions or lytic areas are identified to suggest bony involvement by osteomyelitis. Other findings as noted above TECHNICAL DOCUMENTATION: JOB ID: [id number] [employer]- All Rights Reserved
[2017-11-06 13:57] LABS: ABSOLUTE BASOPHILS # (AUTO) 0.1 10^3/uL (0.0-0.2); ABSOLUTE EOSINOPHILS # (AUTO) 0.2 10^3/uL (0.0-0.6); ABSOLUTE LYMPHOCYTES (AUTO) 2.4 10^3/uL (0.5-4.7); ABSOLUTE MONOCYTES (AUTO) 0.5 10^3/uL (0.1-1.4); ABSOLUTE NEUT (AUTO) 4.9 10^3/uL (1.7-8.2); BASOPHILS % (AUTO) 0.8 % (0-2); EOSINOPHILS % (AUTO) 2.6 % (0-6); HEMATOCRIT 28.6 % (36.0-47.0); HEMOGLOBIN 9.6 g/dL (12.0-15.5); LYMPHOCYTES % (AUTO) 29.6 % (13-45); MEAN CORPUSCULAR HEMOGLOBIN 27.1 pg (27.0-33.4); MEAN CORPUSCULAR HGB CONC 33.5 g/dL (32.0-36.0); MEAN CORPUSCULAR VOLUME 81 fl (80-97); MONOCYTES % (AUTO) 5.7 % (3-13); PLATELET COUNT 422 10^3/uL (150-450); RED BLOOD COUNT 3.52 10^6/uL (3.72-5.28); RED CELL DISTRIBUTION WIDTH 16.1 % (11.5-14.0); SEGMENTED NEUTROPHILS % (AUTO) 61.3 % (42-78); TOTAL CELLS COUNTED % (AUTO) 100 %; WHITE BLOOD COUNT 8.1 10^3/uL (4.0-10.5)
[2017-11-06 14:21] LABS: ALANINE AMINOTRANSFERASE 42 U/L (9-52); ALBUMIN 3.6 g/dL (3.5-5.0); ALKALINE PHOSPHATASE 147 U/L (38-126); ANION GAP 8 (5-19); ASPARTATE AMINO TRANSFERASE 37 U/L (14-36); BILIRUBIN,DIRECT 0.3 mg/dL (0.0-0.4); BILIRUBIN,TOTAL 0.5 mg/dL (0.2-1.3); BLOOD UREA NITROGEN 23 mg/dL (7-20); C-REACTIVE PROTEIN 17.1 mg/L (<10.0); CALCIUM 9.3 mg/dL (8.4-10.2); CARBON DIOXIDE 30 mmol/L (22-30); CHLORIDE 102 mmol/L (98-107); GLUCOSE 95 mg/dL (75-110); POTASSIUM 5.7 mmol/L (3.6-5.0); SODIUM 140.4 mmol/L (137-145); TOTAL PROTEIN 7.5 g/dL (6.3-8.2)
[2017-11-06 14:34] LABS: ERYTHROCYTE SEDIMENTATION RATE 113 mm/hr (0-20)
== END ==
LOC: WC 12:40
PROVIDERS: ATTEND Surgery
DX: E11.621 Type 2 diabetes mellitus with foot ulcer (principal)
CPT/HCPCS: 36415; 80053; 85025; 85652; 86140

== ENCOUNTER 2017-11-20 09:26 | Inpatient (IN) | payer MEDICARE, MEDICAID ==
--- NOTE | 2017-11-20 09:54 | ER Document Report ---
ED Medical Screen (RME) - General Chief Complaint: Wound Infection Stated Complaint: WOUND CHECK Time Seen by Provider: 11/20/17 09:45 Notes: Patient had surgery to her left foot for infection with partial amputation. Followed by the sindhu Nobles. Seen in the wound clinic today. Patient has swollen left leg and by report, Dr. Nobles thinks the wound could have some infection. Sent to the ER for evaluation. I have greeted and performed a rapid initial assessment of this patient. A comprehensive ED assessment and evaluation of the patient, analysis of test results and completion of the medical decision making process will be conducted by additional ED providers. TRAVEL OUTSIDE OF THE [place] IN LAST 30 DAYS: No - Related Data Allergies/Adverse Reactions: No Known Allergies Allergy (Verified 10/15/17 21:46) Past Medical History - Social History Chew tobacco use (# tins/day): No Frequency of alcohol use: None Drug Abuse: None - Past Medical History Cardiac Medical History: Reports: Hx Hypercholesterolemia, Hx Hypertension Pulmonary Medical History: Reports: Hx Asthma, Hx Sleep Apnea - She wears CPAP at home Endocrine Medical History: Reports: Hx Diabetes Mellitus Type 2 Renal/ Medical History: Denies: Hx Peritoneal Dialysis Musculoskeltal Medical History: Reports Hx Musculoskeletal Deformity - Carpal tunnel and heel spurs Past Surgical History: Reports: Hx Section - Twice, Hx Orthopedic Surgery - Heel spur surgery, bilateral carpal tunnel surgery, Other - Right eye surgery as a child - Immunizations Immunizations up to date: Yes Hx Diphtheria, Pertussis, Tetanus Vaccination: No History of Influenza Vaccine for 07/2017 - 12/2017 Season: Yes Influenza Administration Date for 07/2017 - 12/2017 Season: 07/19/17 Physical Exam - Vital signs Vitals: Temp Pulse Resp BP Pulse Ox 97.9 F 86 20 134/69 H 100 11/20/17 09:31 11/20/17 09:31 11/20/17 09:31 11/20/17 09:31 11/20/17 09:31 Course - Vital Signs Vital signs: Temp Pulse Resp BP Pulse Ox 97.9 F 86 20 134/69 H 100 11/20/17 09:31 11/20/17 09:31 11/20/17 09:31 11/20/17 09:31 11/20/17 09:31
[2017-11-20] MEDS ORDERED: PIPERACILLIN/TAZOBACTAM 3.375 GM VIAL IV ONE (11:25)
[2017-11-20] MEDS ORDERED: VANCOMYCIN HCL INJ 1000 MG VIAL IV ONE (11:25)
--- NOTE | 2017-11-20 11:31 | ER Document Report ---
ED General - General Chief Complaint: Wound Infection Stated Complaint: WOUND CHECK Time Seen by Provider: 11/20/17 09:45 Mode of Arrival: Ambulatory Information source: Patient, [facility] Records Notes: 42 yr old female diabetic presents from wound care clinic with concerns for infection as well as left leg swelling. pt noted to have recent amputation of the digits with wound vac that was taken off by Dr Giuliano parry for infection and dvt. Patient admits to foul smell over the past couple weeks TRAVEL OUTSIDE OF THE [place] IN LAST 30 DAYS: No - HPI Onset: Other Onset/Duration: Persistent Quality of pain: Sharp Severity: Mild Pain Level: 1 Associated symptoms: Other Exacerbated by: Denies Relieved by: Denies Similar symptoms previously: Yes Recently seen / treated by doctor: Yes - Related Data Allergies/Adverse Reactions: No Known Allergies Allergy (Verified 11/20/17 09:53) Past Medical History - Social History Smoking Status: Former Smoker Cigarette use (# per day): No Chew tobacco use (# tins/day): No Smoking Education Provided: No Frequency of alcohol use: None Drug Abuse: None Family History: CAD, DM, Hyperlipidemia, Hypertension Patient has suicidal ideation: No Patient has homicidal ideation: No - Past Medical History Cardiac Medical History: Reports: Hx Hypercholesterolemia, Hx Hypertension Pulmonary Medical History: Reports: Hx Asthma, Hx Sleep Apnea - She wears CPAP at home Endocrine Medical History: Reports: Hx Diabetes Mellitus Type 2 Renal/ Medical History: Denies: Hx Peritoneal Dialysis Musculoskeltal Medical History: Reports Hx Musculoskeletal Deformity - Carpal tunnel and heel spurs Past Surgical History: Reports: Hx Section - Twice, Hx Orthopedic Surgery - Heel spur surgery, bilateral carpal tunnel surgery, Other - Right eye surgery as a child - Immunizations Immunizations up to date: Yes Hx Diphtheria, Pertussis, Tetanus Vaccination: No Review of Systems - Review of Systems Notes: REVIEW OF SYSTEMS: CONSTITUTIONAL : Denies fever, chills, or sweats. Denies recent illness. EENT: Denies eye, ear, throat, or mouth pain or symptoms. Denies nasal or sinus congestion or discharge. Denies throat, tongue, or mouth swelling or difficulty swallowing. CARDIOVASCULAR: Denies chest pain. Denies palpitations or racing or irregular heart beat. Denies ankle edema. RESPIRATORY: Denies cough, cold, or chest congestion. Denies shortness of breath, difficulty breathing, or wheezing. GASTROINTESTINAL: Denies abdominal pain or distention. Denies nausea, vomiting , or diarrhea. Denies blood in vomitus, stools, or per rectum. Denies black, tarry stools. Denies constipation. GENITOURINARY: Denies difficulty urinating, painful urination, burning, frequency, blood in urine, or discharge. FEMALE GENITOURINARY: Denies vaginal bleeding, heavy or abnormal periods, irregular periods. Denies vaginal discharge or odor. MUSCULOSKELETAL: Denies back or neck pain or stiffness. Denies joint pain or swelling. SKIN: Wound left foot foul smelling HEMATOLOGIC : Denies easy bruising or bleeding. LYMPHATIC: Denies swollen, enlarged glands. NEUROLOGICAL: Denies confusion or altered mental status. Denies passing out or loss of consciousness. Denies dizziness or lightheadedness. Denies headache. Denies weakness or paralysis or loss of use of either side. Denies problems with gait or speech. Denies sensory loss, numbness, or tingling. Denies seizures. PSYCHIATRIC: Denies anxiety or stress. Denies depression, suicidal ideation, or homicidal ideation. ALL OTHER SYSTEMS REVIEWED AND NEGATIVE. PHYSICAL EXAMINATION: GENERAL: Well-appearing, well-nourished and in no acute distress. HEAD: Atraumatic, normocephalic. EYES: Pupils equal round and reactive to light, extraocular movements intact, conjunctiva are normal. ENT: Nares patent, oropharynx clear without exudates. Moist mucous membranes. NECK: Normal range of motion, supple without lymphadenopathy LUNGS: Breath sounds clear to auscultation bilaterally and equal. No wheezes rales or rhonchi. HEART: Regular rate and rhythm without murmurs ABDOMEN: Soft, nontender, nondistended abdomen. No guarding, no rebound. No masses appreciated. Female : deferred Musculoskeletal: Normal range of motion, no pitting or edema. No cyanosis. NEUROLOGICAL: Cranial nerves grossly intact. Normal speech, normal gait. Normal sensory, motor exams PSYCH: Normal mood, normal affect. SKIN: foul smelling post amputation wound, left foot , no eryhtmea, necrotic tissue noted Dictation was performed using [employer] voice recognition software Physical Exam - Vital signs Vitals: Temp Pulse Resp BP Pulse Ox 97.9 F 86 20 134/69 H 100 11/20/17 09:31 11/20/17 09:31 11/20/17 09:31 11/20/17 09:31 11/20/17 09:31 Course - Re-evaluation Re-evalutation: 11/20/17 11:26 Dr Giuliano elkins he agrees the patient will require admission IV antibiotics 11/20/17 11:31 Ultrasound was negative lab work pending - Vital Signs Vital signs: Temp Pulse Resp BP Pulse Ox 97.9 F 86 20 134/69 H 100 11/20/17 09:31 11/20/17 09:31 11/20/17 09:31 11/20/17 09:31 11/20/17 09:31 - Diagnostic Test Radiology reviewed: Image reviewed, Reports reviewed - No dvt Discharge - Discharge Clinical Impression: Diabetes mellitus type 1.5, Morbid obesity with BMI of 50.0-59.9, adult, Cellulitis of left foot Osteomyelitis Qualifiers: Osteomyelitis type: unspecified type Osteomyelitis location: unspecified site Qualified Code(s): M86.9 - Osteomyelitis, unspecified Condition: Stable Disposition: ADMITTED INPATIENT Admitting Provider: Hospitalist Unit Admitted: Medical Floor
--- NOTE | 2017-11-20 11:31 | RADIOLOGY REPORT (SQ) ---
EXAM DESCRIPTION: VENOUS UNILATERAL LOWER COMPLETED DATE/TIME: 11/20/2017 11:23 am REASON FOR STUDY: s/p sx left foot with leg swelling COMPARISON: 09/24/2017 TECHNIQUE: Dynamic and static harry scale and color images acquired of the LEFT leg venous system. Se lected spectral images acquired with additional compression and augmentation maneuvers. The contralat eral common femoral vein and saphenofemoral junction were also imaged. Images stored on PACS. LIMITATIONS: None. FINDINGS: LEFT COMMON FEMORAL: Normal phasicity, compression and augmentation. No visualized echogenic material on g ray scale. No defects on color images. FEMORAL: Normal compression and augmentation. No visualized echogenic material on harry scale. No defe cts on color images. POPLITEAL: Normal compression, augmentation. No visualized echogenic material on harry scale. No defec ts on color images. CALF VESSELS: Normal compression, augmentation. No visualized echogenic material on harry scale. No de fects on color images. Please note that the left peroneal vein was very difficult to visualize GSV and SSV: Normal compression, augmentation. No visualized echogenic material on harry scale. No def ects on color images. ANY DEEP VENOUS INSUFFICIENCY: Not evaluated. ANY EVIDENCE OF POPLITEAL CYST: No. OTHER: No other significant finding. RIGHT COMMON FEMORAL VEIN AND SAPHENOFEMORAL JUNCTION: Normal phasicity, compression and augmentation. No visualized echogenic material on harry scale. No de fects on color images. IMPRESSION: NO EVIDENCE OF DVT OR SVT IN THE LEFT LEG. TECHNICAL DOCUMENTATION: JOB ID: [id number] [employer]- All Rights Reserved
[2017-11-20] MEDS ORDERED: MORPHINE SULFATE 10 MG/ML INJ IV ONE (12:07)
[2017-11-20] MEDS ORDERED: NORMAL SALINE 1000 ML 1,000 ML IV PRN (12:09)
[2017-11-20] MEDS ORDERED: GLUCAGON,HUMAN RECOMB 1 MG INJ SUBCUT PRN (12:09)
[2017-11-20] MEDS ORDERED: DEXTROSE 50%-WATER 25 GM/50 ML DISP.SYRIN IV PRN ×2 (12:09)
[2017-11-20] MEDS ORDERED: DEXTROSE 40% GEL 15 GM TUBE PO PRN ×2 (12:09)
[2017-11-20 12:18] LABS: ABSOLUTE BASOPHILS # (AUTO) 0.1 10^3/uL (0.0-0.2); ABSOLUTE EOSINOPHILS # (AUTO) 0.2 10^3/uL (0.0-0.6); ABSOLUTE LYMPHOCYTES (AUTO) 2.4 10^3/uL (0.5-4.7); ABSOLUTE MONOCYTES (AUTO) 0.6 10^3/uL (0.1-1.4); ABSOLUTE NEUT (AUTO) 6.7 10^3/uL (1.7-8.2); BASOPHILS % (AUTO) 1.3 % (0-2); HEMATOCRIT 25.5 % (36.0-47.0); HEMOGLOBIN 8.6 g/dL (12.0-15.5); MEAN CORPUSCULAR HEMOGLOBIN 27.5 pg (27.0-33.4); MEAN CORPUSCULAR HGB CONC 33.8 g/dL (32.0-36.0); MEAN CORPUSCULAR VOLUME 81 fl (80-97); MONOCYTES % (AUTO) 5.5 % (3-13); PLATELET COUNT 435 10^3/uL (150-450); RED BLOOD COUNT 3.14 10^6/uL (3.72-5.28); RED CELL DISTRIBUTION WIDTH 15.4 % (11.5-14.0); SEGMENTED NEUTROPHILS % (AUTO) 67.2 % (42-78); TOTAL CELLS COUNTED % (AUTO) 100 %
[2017-11-20 12:44] LABS: ALANINE AMINOTRANSFERASE 43 U/L (9-52); ALBUMIN 3.6 g/dL (3.5-5.0); ALKALINE PHOSPHATASE 157 U/L (38-126); ANION GAP 11 (5-19); ASPARTATE AMINO TRANSFERASE 27 U/L (14-36); BILIRUBIN,TOTAL 0.4 mg/dL (0.2-1.3); BLOOD UREA NITROGEN 22 mg/dL (7-20); C-REACTIVE PROTEIN 30.2 mg/L (<10.0); CALCIUM 9.2 mg/dL (8.4-10.2); CARBON DIOXIDE 25 mmol/L (22-30); CHLORIDE 107 mmol/L (98-107); GLUCOSE 90 mg/dL (75-110); SODIUM 143.2 mmol/L (137-145); TOTAL PROTEIN 7.6 g/dL (6.3-8.2)
[2017-11-20] MEDS ORDERED: VANCOMYCIN HCL 0 MG in DEXTROSE 5%-WATER 250 ML IV NR (12:45)
--- NOTE | 2017-11-20 12:47 | RADIOLOGY REPORT (SQ) ---
EXAM DESCRIPTION: FOOT LEFT 2 VIEWS COMPLETED DATE/TIME: 11/20/2017 12:36 pm REASON FOR STUDY: recent sx, assess for free air and osteo COMPARISON: Left foot films 11/06/2017, 09/05/2017 NUMBER OF VIEWS: Three views. TECHNIQUE: AP, lateral and oblique radiographic images acquired of the left foot. LIMITATIONS: None. FINDINGS: Patient is post transmetatarsal amputation of the left foot. There is minimal periosteal new bone along the distal 5th metatarsal. Bony resorption along the 1st 2nd and 3rd metatarsal stump s is seen, question underlying infection. A large ulcer is present along the dorsal and medial aspect of the amputation site, similar compared to 11/06/2017. IMPRESSION: Demineralization along the 1st 2nd and 3rd metatarsal stumps worrisome for infection Large soft tissue ulcer at the amputation site TECHNICAL DOCUMENTATION: JOB ID: [id number] [employer]- All Rights Reserved
--- NOTE | 2017-11-20 13:09 | PDOC H&P ---
History of Present Illness Admission Date/PCP: 11/20/17 11:50 Patient complains of: left foot pain and foul smell History of Present Illness: RUTH WOOD is a 42 year old female with type 2 diabetes and obesity. In Sep she had left foot transmet amp for diabetic foot infection, polymibcrobial. Subsequent to that she was on several course of ABX for foot infection. ABout 2 weeks ago a wound vac was placed and she has been followed in local wound care clinic. Today at clinic when vac was removed there was foul smell and drainage and she was sen to ED. No fever or chills. She does have significant acute left foot pain and swelling. No confusion. No abd complaints. No dysuria. Past Medical History Cardiac Medical History: Reports: Hyperlipidema, Hypertension Pulmonary Medical History: Reports: Asthma, Sleep Apnea - She wears CPAP at home Endocrine Medical History: Reports: Diabetes Mellitus Type 2, Other - diabetic neuropathy Renal/ Medical History: Reports: Other - reports hx of kidney problems, does not know specifics, labs not available Musculoskeltal Medical History: Denies: Fibromyalgia Skin Medical History: Reports: Other - carpel tunnel syndrom bilaterally Hematology: Denies: Bleeding Tendencies Infectious Medical History: Reports: Other Infectious History Note: none known Past Surgical History Past Surgical History: Reports: Section - Twice, Orthopedic Surgery - Heel spur surgery, bilateral carpal tunnel surgery, Other - 2 c section, left bone spur removal, left foot surg, R eye surg as child Social History Information Source: Patient Occupation: disabled due to hx of [employer] [place] Lives with: Family Smoking Status: Never Smoker Frequency of Alcohol Use: Occasional Amount of Alcoholic Beverages Per Day: not daily Hx Recreational Drug Use: No Drugs: None Hx Prescription Drug Abuse: No Past Social History Note: has a few friends and family locally but is not from here Family History Family History: CAD, DM, Hyperlipidemia, Hypertension Parental Family History Reviewed: Yes Children Family History Reviewed: Yes Sibling(s) Family History Reviewed.: Yes Medication/Allergy Allergies/Adverse Reactions: No Known Allergies Allergy (Verified 11/20/17 09:53) Review of Systems Constitutional: PRESENT: headache(s) Eyes: ABSENT: visual disturbances Ears: ABSENT: hearing changes Nose, Mouth, and Throat: PRESENT: headache(s). ABSENT: mouth pain, sore throat , vertigo Cardiovascular: PRESENT: edema, orthropnea. ABSENT: chest pain, dyspnea on exertion, palpitations Respiratory: ABSENT: cough, dyspnea, hemoptysis, sputum Gastrointestinal: PRESENT: constipation. ABSENT: abdominal pain, diarrhea, nausea, vomiting Musculoskeletal: PRESENT: joint swelling Integumentary: PRESENT: erythema, lesions, wounds. ABSENT: diaphoresis Neurological: PRESENT: paresthesias. ABSENT: confusion, dizziness, frequent falls, memory loss, tremor(s) Psychiatric: ABSENT: anxiety Endocrine: PRESENT: other - type 2 diabetes with neuropathy and infection Physical Exam Vital Signs: Temp Pulse Resp BP Pulse Ox 97.9 F 86 18 103/78 100 11/20/17 09:31 11/20/17 09:31 11/20/17 12:08 11/20/17 12:08 11/20/17 12:08 General appearance: PRESENT: no acute distress, cooperative, morbidly obese Head exam: PRESENT: atraumatic, normocephalic Eye exam: PRESENT: conjunctiva pink, other - wearing her eyeglasses. ABSENT: conjunctival injection, periorbital swelling Ear exam: PRESENT: normal external ear exam. ABSENT: bleeding Mouth exam: PRESENT: moist, tongue midline. ABSENT: dry mucosa Neck exam: ABSENT: lymphadenopathy, tracheal deviation Respiratory exam: PRESENT: clear to auscultation mary, symmetrical, unlabored. ABSENT: accessory muscle use, chest wall tenderness, crackles, decreased breath sounds, prolonged expiratory phas, rales, retraction, rhonchi, stridor, tachypnea, wheezes Cardiovascular exam: PRESENT: RRR. ABSENT: systolic murmur Pulses: PRESENT: normal radial pulses GI/Abdominal exam: PRESENT: diminished bowel sounds, soft. ABSENT: distended, firm, guarding, rebound, rigid Rectal exam: PRESENT: deferred Gentrourinary exam: ABSENT: indwelling catheter Extremities exam: PRESENT: joint swelling, pedal edema. ABSENT: calf tenderness Musculoskeletal exam: PRESENT: deformity - left foot s/p transmet amputation and non lealing wound Neurological exam: PRESENT: alert, awake, oriented to person, oriented to place , oriented to situation, CN II-XII grossly intact Psychiatric exam: PRESENT: flat affect. ABSENT: agitated, anxious Skin exam: PRESENT: other - left foot with open wound, clear fluid drainage, cellultis surrounding and edema Results Laboratory Results: 11/20/17 12:00 11/20/17 12:00 11/20/17 11/20/17 12:00 12:00 WBC 10.0 RBC 3.14 L Hgb 8.6 L Hct 25.5 L MCV 81 MCH 27.5 MCHC 33.8 RDW 15.4 H Plt Count 435 Seg Neutrophils % 67.2 Lymphocytes % 24.0 Monocytes % 5.5 Eosinophils % 2.0 Basophils % 1.3 Absolute Neutrophils 6.7 Absolute Lymphocytes 2.4 Absolute Monocytes 0.6 Absolute Eosinophils 0.2 Absolute Basophils 0.1 Sodium 143.2 Potassium 5.0 Chloride 107 Carbon Dioxide 25 Anion Gap 11 BUN 22 H Creatinine 1.31 H Est GFR ( Amer) 54 L Est GFR (Non-Af Amer) 44 L Glucose 90 Calcium 9.2 Total Bilirubin 0.4 AST 27 ALT 43 Alkaline Phosphatase 157 H C-Reactive Protein 30.2 H Total Protein 7.6 Albumin 3.6 Impressions: Venous Doppler Study 11/20/17 09:55 IMPRESSION: NO EVIDENCE OF DVT OR SVT IN THE LEFT LEG. Assessment & Plan - Diagnosis (1) Acute pain Is this a current diagnosis for this admission?: Yes Plan: pt has chronic leg and back pain and sees a pain clinic, has oxycodone 15 mg po q6hrs at home, for now for the acute pain I have ordered morphine 2 mg IV q 4 hrs prn pain (2) Neuropathy associated with endocrine disorder Is this a current diagnosis for this admission?: Yes Plan: will restart her lyrica if she does not need surgery (3) Cellulitis of left foot Is this a current diagnosis for this admission?: Yes Plan: diabetic foot infection, recent culture was polymicrobial (4) Diabetes mellitus type 1.5 Plan: will feed and start her diabetic med regimen as soon as we can, depends upon surgery eval. For now she is NPO with q6hr CBG and shortacting insulin (5) Morbid obesity with BMI of 50.0-59.9, adult Is this a current diagnosis for this admission?: Yes Plan: once she is feeling better and may be more open to counseling will approach weight loss disucssion. Weight reduction could help with diabetes control which could help with infection control. (6) Osteomyelitis Qualifiers: Osteomyelitis type: unspecified type Osteomyelitis location: foot Laterality: left Qualified Code(s): M86.9 - Osteomyelitis, unspecified Plan: recent osteo,led to recent amputation, surgery eval now pending to see if recurrent osteo might be a concern, Valery and loyd ordered (7) Acute renal failure Qualifiers: Acute renal failure type: unspecified Qualified Code(s): N17.9 - Acute kidney failure, unspecified (8) Anemia Qualifiers: Anemia type: iron deficiency Iron deficiency anemia type: inadequate dietary iron intake Qualified Code(s): D50.8 - Other iron deficiency anemias Is this a current diagnosis for this admission?: Yes Plan: pt take daily Fe supplements, will start when she is eating (9) Foot amputation status Qualifiers: Laterality: left Qualified Code(s): Z89.432 - Acquired absence of left foot - Time Time Spent: Greater than 70 Minutes Medications reviewed and adjusted accordingly: Yes Within: Other - not yet clear, will depend upon whether she needs surger or not and need for watermelon harvesting supervisor ABX or not - Inpatient Certification Based on my medical assessment, after consideration of the patient's comorbidities, presenting symptoms, or acuity I expect that the services needed warrant INPATIENT care.: Yes I certify that my determination is in accordance with my understanding of Medicare's requirements for reasonable and necessary INPATIENT services [42 CFR 412.3e].: Yes Medical Necessity: Failure to Improve With Outpatient Therapy - sent to ED by wound clinic, Need Close Monitoring Due to Risk of Patient Decompensation, Need For IV Fluids, Need for IV Antibiotics, Risk of Complication if Not Cared For in Hospital Post Hospital Care: D/C Carpet Renovator Documentation
[2017-11-20 13:34] LABS: ERYTHROCYTE SEDIMENTATION RATE > 120 mm/hr (0-20); INTERNATIONAL RATION (INR) 0.97; PROTHROMBIN TIME 13.6 SEC (11.4-15.4)
[2017-11-20] MEDS: HEPARIN SOD (PORCINE) 5,000 UNIT/ML 1 ML SYRINGE SUBCUT SCH ×2 (14:57→22:38)
[2017-11-20] MEDS ORDERED: PROPOFOL INJ 200 MG/20 ML VIAL IV ONE (16:13)
[2017-11-20] MEDS ORDERED: MIDAZOLAM 2 MG/2 ML INJ ONE (16:13)
[2017-11-20] MEDS ORDERED: EPHEDRINE SULFATE INJ 50 MG/1 ML AMPULE ONE (16:56)
[2017-11-20] MEDS ORDERED: FENTANYL CITRATE INJ/PF 100 MCG/2 ML AMPUL IV PRN ×3 (17:11)
[2017-11-20] MEDS ORDERED: MORPHINE SULFATE 10 MG/ML INJ IV PRN (17:11)
[2017-11-20] MEDS ORDERED: OXYCODONE-ACETAMINOPHEN 5-325 MG TABLET PO PRN ×2 (17:11)
[2017-11-20] MEDS ORDERED: PROMETHAZINE HCL INJ 25 MG/1 ML VIAL IV PRN ×2 (17:11)
[2017-11-20] MEDS ORDERED: DIPHENHYDRAMINE HCL 50 MG/ML VIAL IV PRN (17:11)
[2017-11-20] MEDS ORDERED: MEPERIDINE HCL/PF INJ 25 MG/1 ML DISP.SYRIN IV PRN (17:11)
--- NOTE | 2017-11-20 17:12 | PDOC CONSULTATION ---
Consultation Consult Date: 11/20/17 Consult reason:: Diabetic with Infected Left Transmetatarsal Amputation Stump History of Present Illness Admission Date/PCP: 11/20/17 11:50 ANT LADD MD History of Present Illness: Ms Zamarripa is a 42 yo F admitted to the hospitalist with an open foul-smelling wound with drainage from a left transmetatarsal amputation stump. She had the amputation on the September 924 days ago) here at [facility]. She had been receiving wound care with on and off antibiotics at the wound care center but today was sent to the ER for foul smell and drainage from the wound which has failed outpatient therapy. I was subsequently consulted from the ER by the hospitalist for evaluation of the stump. The patient does complain of pain up the left ankle and lower leg. Past Medical History Cardiac Medical History: Reports: Hyperlipidema, Hypertension Pulmonary Medical History: Reports: Asthma, Sleep Apnea - She wears CPAP at home Endocrine Medical History: Reports: Diabetes Mellitus Type 2, Other - diabetic neuropathy Renal/ Medical History: Reports: Other - reports hx of kidney problems, does not know specifics, labs not available Musculoskeltal Medical History: Denies: Fibromyalgia Skin Medical History: Reports: Other - carpel tunnel syndrom bilaterally Hematology: Denies: Bleeding Tendencies Infectious Medical History: Reports: Other Past Surgical History Past Surgical History: Reports: Section - Twice, Orthopedic Surgery - Heel spur surgery, bilateral carpal tunnel surgery, Other - 2 c section, left bone spur removal, left foot surg, R eye surg as child Social History Lives with: Family Smoking Status: Never Smoker Frequency of Alcohol Use: Occasional Hx Recreational Drug Use: No Drugs: None Hx Prescription Drug Abuse: No - Advance Directive Resuscitation Status: Full Code Family History Family History: CAD, DM, Hyperlipidemia, Hypertension Parental Family History Reviewed: No Children Family History Reviewed: Unknown Sibling(s) Family History Reviewed.: Unknown Medication/Allergy Home Medications: Albuterol Sulfate [Proair HFA] 2 puff IH Q4H 11/20/17 Amlodipine Besylate [Norvasc 5 mg Tablet] 5 mg PO DAILY 11/20/17 Amox Tr/Potassium Clavulanate [Augmentin 875-125 mg Tablet] 1 tab PO BID Aspirin [Adult Low Dose Aspirin EC] 81 mg PO DAILY 11/20/17 Cetirizine HCl [Zyrtec 10 mg Tablet] 10 mg PO DAILY 11/20/17 Clonidine HCl [Catapres 0.1 mg Tablet] 0.1 mg PO Q6 11/20/17 Dulaglutide [Trulicity] 0.75 mg SQ TH 11/20/17 Ferrous Sulfate [Feosol 325 mg Tablet] 325 mg PO TID 11/20/17 Fluticasone/Salmeterol [Advair 500-50 Diskus 14 Dose/Diskus] 1 puff IH BID 11/20 Furosemide [Lasix 20 mg Tablet] 20 mg PO DAILY 11/20/17 Insulin Aspart [Novolog Flexpen] 0 units SQ .PERSLIDINGSCALE 11/20/17 Insulin Detemir [Levemir Flextouch] 70 units SQ DAILY 11/20/17 Lisinopril/Hydrochlorothiazide [Zestoretic 20-25 mg Tablet] 1 tab PO DAILY 11/20 Medroxyprogesterone Acet [Provera 10 mg Tablet] 10 mg PO DAILY 11/20/17 Omeprazole 20 mg PO DAILY 11/20/17 Oxycodone HCl [Oxycodone HCl 10 MG Tablet] 10 mg PO Q6HP PRN 11/20/17 Pregabalin [Lyrica] 150 mg PO Q8 11/20/17 Simvastatin [Zocor 20 mg Tablet] 20 mg PO DAILY 11/20/17 Allergies/Adverse Reactions: No Known Allergies Allergy (Verified 11/20/17 09:53) Review of Systems Constitutional: PRESENT: other - no fever or chills; she is overweight Eyes: ABSENT: as per HPI, visual disturbances, other Ears: ABSENT: as per HPI, hearing changes, other Nose, Mouth, and Throat: ABSENT: as per HPI, headache(s), mouth pain, sore throat, vertigo, other Cardiovascular: ABSENT: as per HPI, chest pain, dyspnea on exertion, edema, orthropnea, palpitations, other Respiratory: ABSENT: as per HPI, cough, dyspnea, hemoptysis, sputum, other Gastrointestinal: ABSENT: as per HPI, abdominal pain, bloating, coffee ground emesis, constipation, diarrhea, dysphagia, heartburn, hematemesis, hematochezia , melena, nausea, vomiting, other Genitourinary: ABSENT: as per HPI, difficulty urinating, dysuria, hematuria, nocturia, other Musculoskeletal: PRESENT: as per HPI Integumentary: PRESENT: as per HPI Neurological: ABSENT: as per HPI, abnormal gait, abnormal movements, abnormal speech, confusion, convulsions, dizziness, focal weakness, frequent falls, lack of coordination, memory loss, numbness, paresthesias, restless legs, syncope, tingling, tremor(s), vertigo, weakness, other Psychiatric: ABSENT: as per HPI, anxiety, depression, hallucinations, homidical ideation, suicidal ideation, other Endocrine: PRESENT: as per HPI Hematologic/Lymphatic: ABSENT: as per HPI, easy bleeding, easy bruising, lymphadenopathy, other Physical Exam Vital Signs: Temp Pulse Resp BP Pulse Ox 97.9 F 86 17 112/99 H 100 11/20/17 09:31 11/20/17 09:31 11/20/17 14:01 11/20/17 14:01 11/20/17 14:01 General appearance: PRESENT: no acute distress, morbidly obese Head exam: PRESENT: atraumatic, normocephalic Eye exam: PRESENT: conjunctiva pink, EOMI, PERRLA Ear exam: PRESENT: normal external ear exam Mouth exam: PRESENT: moist, neck supple Neck exam: PRESENT: full ROM Respiratory exam: PRESENT: clear to auscultation mary, symmetrical Cardiovascular exam: PRESENT: RRR, +S1, +S2 GI/Abdominal exam: PRESENT: normal bowel sounds, soft Rectal exam: PRESENT: deferred Extremities exam: PRESENT: other - Left TMA stump wound is partially open with foul smell and drainage; periwound skin is dark in areas. Musculoskeletal exam: PRESENT: other - Left TMA stump wound is partially open with foul smell and drainage; periwound skin is dark in areas. Right foot appears normal Neurological exam: PRESENT: alert, awake, oriented to person, oriented to place , oriented to time, oriented to situation, CN II-XII grossly intact Results Laboratory Results: 11/20/17 12:00 11/20/17 12:00 11/20/17 11/20/17 11/20/17 12:00 12:00 12:00 WBC 10.0 RBC 3.14 L Hgb 8.6 L Hct 25.5 L MCV 81 MCH 27.5 MCHC 33.8 RDW 15.4 H Plt Count 435 Seg Neutrophils % 67.2 Lymphocytes % 24.0 Monocytes % 5.5 Eosinophils % 2.0 Basophils % 1.3 Absolute Neutrophils 6.7 Absolute Lymphocytes 2.4 Absolute Monocytes 0.6 Absolute Eosinophils 0.2 Absolute Basophils 0.1 Sodium 143.2 Potassium 5.0 Chloride 107 Carbon Dioxide 25 Anion Gap 11 BUN 22 H Creatinine 1.31 H Est GFR ( Amer) 54 L Est GFR (Non-Af Amer) 44 L Glucose 90 Calcium 9.2 Total Bilirubin 0.4 AST 27 ALT 43 Alkaline Phosphatase 157 H C-Reactive Protein 30.2 H Total Protein 7.6 Albumin 3.6 Serum HCG, Qual NEGATIVE Blood Type Antibody Screen 11/20/17 14:44 WBC RBC Hgb Hct MCV MCH MCHC RDW Plt Count Seg Neutrophils % Lymphocytes % Monocytes % Eosinophils % Basophils % Absolute Neutrophils Absolute Lymphocytes Absolute Monocytes Absolute Eosinophils Absolute Basophils Sodium Potassium Chloride Carbon Dioxide Anion Gap BUN Creatinine Est GFR ( Amer) Est GFR (Non-Af Amer) Glucose Calcium Total Bilirubin AST ALT Alkaline Phosphatase C-Reactive Protein Total Protein Albumin Serum HCG, Qual Blood Type B POSITIVE Antibody Screen NEGATIVE Impressions: Foot X-Ray 11/20/17 09:54 IMPRESSION: Demineralization along the 1st 2nd and 3rd metatarsal stumps worrisome for infection Large soft tissue ulcer at the amputation site Venous Doppler Study 11/20/17 09:55 IMPRESSION: NO EVIDENCE OF DVT OR SVT IN THE LEFT LEG. Assessment & Plan - Diagnosis (1) Status post transmetatarsal amputation of left foot Is this a current diagnosis for this admission?: Yes Plan: Needs revision of the amputation because of infection of the stump. (2) Infection of amputation stump of left lower extremity Is this a current diagnosis for this admission?: Yes Plan: The patient was counselled on the need for a guillotine amputation of the left leg; this new amputation stump will be left open to drainage with wet-to-dry wound dressings to control infection and after the infection is settled she can have a formal left below knee amputation fashioned. She agrees to this plan of treatment and an informed consent was obtained. Contnue IV antibiotics. (3) Diabetes mellitus type 1.5 Is this a current diagnosis for this admission?: Yes (4) Morbid obesity with BMI of 50.0-59.9, adult Is this a current diagnosis for this admission?: Yes - Time Time Spent: 30 to 50 Minutes
--- NOTE | 2017-11-20 18:43 | Operative Report ---
Operative Report DATE OF SURGERY: 11/20/17 PREOPERATIVE DIAGNOSIS: Diabetic with Infected Left Transmetatarsal Amputation Stump POSTOPERATIVE DIAGNOSIS: Diabetic with Infected Left Transmetatarsal Amputation Stump OPERATION: Left Ankle Guillotine Amputation SURGEON: Jeffrey Kwan ANESTHESIA: Spinal TISSUE REMOVED OR ALTERED: Left foot transmetatarsal amputation stump COMPLICATIONS: None ESTIMATED BLOOD LOSS: 50 ml INTRAOPERATIVE FINDINGS: Left transmetatarsal amputation stump with partially dehisced wound, foul, malodorous smell and drainage; some dark discooration of the parts of the periwound skin. Significant soft tissue edema extending to the lower leg PROCEDURE: The patient was brought to the operating room and placed on the operating table. Spinal anesthesia was administered and she was positioned supine with both arms on arm-boards. The left leg and foot were prepped with betadine and sterile drapes laid to expose the left leg up to the ankle. Under sterile aseptic conditions, a skin incision was made in the anterior half-circumference of the left lower leg above the ankle. the incision was developed to the tibia and fibula securing hemostasis along the way. Using a periosteal elevator the periosteum was cleared of the tibia and fibula and the bones divided at the chosen sites above the ankle with some soft tissue cover. The major vascular bundles were controlled with 3-0 vicryl ties. The posterior soft tissues were divided with the monopolar electrosurgical unit and the posterior half- circumference of the skin incision ceveloped to complete the amputation. Hemostasis was further secured with 3-0 vicryl ties, the wound irrigated with saline and the skin clean and dried. The wound was then dressed with 1/2 inch iodoform gauze, 4x4, ABD x2, 6 inch kerlex x2 and Coban to hold the dressing. The patient tolerated the procedure well and was taken to the PACU in stable condition.
[2017-11-20] MEDS ORDERED: INSULIN ASPART SQ SCH (18:45)
[2017-11-20] MEDS: AMOXICILLIN TR/POT CLAVULANATE 500-125 MG TAB PO SCH (22:38)
[2017-11-20] MEDS: PREGABALIN 75 MG CAPSULE PO SCH (22:38)
[2017-11-20] MEDS: MORPHINE SULFATE 10 MG/ML INJ IV PRN (22:39)
[2017-11-20] MEDS: VANCOMYCIN HCL 1,250 MG in DEXTROSE 5%-WATER 250 ML IV SCH (22:39)
[2017-11-20] MEDS: ALBUTEROL SULFATE HFA (90 MCG/PUFF) 8 GM MDI (1 MDI/ER DISP) IH SCH ×2 (22:40→22:52)
[2017-11-20] MEDS ORDERED: CEFEPIME 1 GM/D5W RTU 1 GM/50 ML RTUPB IV ONE (23:05)
[2017-11-20] MEDS: OXYCODONE HCL IR 5 MG TABLET PO PRN (23:17)
[2017-11-20] MEDS: CEFEPIME 1 GM/D5W RTU 1 GM/50 ML RTUPB IV SCH (23:17)
[2017-11-20] MEDS: CLONIDINE HCL 0.1 MG TABLET PO SCH (23:17)
[2017-11-21] MEDS: MORPHINE SULFATE 10 MG/ML INJ IV PRN (02:55)
[2017-11-21 05:23] LABS: HEMATOCRIT 23.5 % (36.0-47.0); MEAN CORPUSCULAR HGB CONC 33.4 g/dL (32.0-36.0); MEAN CORPUSCULAR VOLUME 81 fl (80-97); PLATELET COUNT 345 10^3/uL (150-450); RED CELL DISTRIBUTION WIDTH 15.7 % (11.5-14.0); WHITE BLOOD COUNT 9.9 10^3/uL (4.0-10.5)
[2017-11-21 05:28] LABS: HEMOGLOBIN 7.8 g/dL (12.0-15.5)
[2017-11-21] MEDS: AMOXICILLIN TR/POT CLAVULANATE 500-125 MG TAB PO SCH (05:33)
[2017-11-21] MEDS: OXYCODONE HCL IR 5 MG TABLET PO PRN ×3 (05:33→21:01)
[2017-11-21] MEDS: CLONIDINE HCL 0.1 MG TABLET PO SCH ×3 (05:33→18:04)
[2017-11-21] MEDS: PREGABALIN 75 MG CAPSULE PO SCH ×3 (05:33→21:03)
[2017-11-21] MEDS: HEPARIN SOD (PORCINE) 5,000 UNIT/ML 1 ML SYRINGE SUBCUT SCH ×3 (05:34→21:07)
[2017-11-21] MEDS: LANSOPRAZOLE 15 MG TAB.RAP.DR PO SCH (05:34)
[2017-11-21 05:57] LABS: ALANINE AMINOTRANSFERASE 26 U/L (9-52); ALBUMIN 3.1 g/dL (3.5-5.0); ALKALINE PHOSPHATASE 114 U/L (38-126); ANION GAP 7 (5-19); ASPARTATE AMINO TRANSFERASE 31 U/L (14-36); BILIRUBIN,DIRECT 0.5 mg/dL (0.0-0.4); BILIRUBIN,TOTAL 0.6 mg/dL (0.2-1.3); BLOOD UREA NITROGEN 23 mg/dL (7-20); CALCIUM 8.7 mg/dL (8.4-10.2); CARBON DIOXIDE 25 mmol/L (22-30); CHLORIDE 108 mmol/L (98-107); GLUCOSE 150 mg/dL (75-110); POTASSIUM 4.4 mmol/L (3.6-5.0); TOTAL PROTEIN 6.9 g/dL (6.3-8.2)
[2017-11-21] MEDS ORDERED: ALBUTEROL SULFATE HFA (90 MCG/PUFF) 8 GM MDI (1 MDI/ER DISP) IH SCH (06:00)
[2017-11-21] MEDS: LISINOPRIL 10 MG TABLET PO SCH (09:21)
[2017-11-21] MEDS: FUROSEMIDE 20 MG TABLET PO SCH (09:21)
[2017-11-21] MEDS: ASPIRIN 81 MG TABLET, ENT COATED PO SCH (09:21)
[2017-11-21] MEDS: FERROUS SULFATE 325 MG TABLET PO SCH ×3 (09:22→18:03)
[2017-11-21] MEDS: HYDROCHLOROTHIAZIDE 25 MG TABLET PO SCH (09:22)
[2017-11-21] MEDS: AMLODIPINE BESYLATE 5 MG TABLET PO SCH (09:22)
[2017-11-21] MEDS: ALBUTEROL SULFATE HFA (90 MCG/PUFF) 200 PUFF/8.5 GM MDI IH SCH ×4 (09:35→21:07)
[2017-11-21] MEDS: FLUTICASONE/SALMETEROL DISKUS 500-50 MCG/DOSE IH SCH ×2 (09:35→17:39)
[2017-11-21] MEDS ORDERED: (PENDING PHARMACY ID) (Lisinopril/Hydrochlorothiazide [Zestoretic 20-25 Mg Tablet] 1 TAB) PO SCH (10:00)
[2017-11-21] MEDS ORDERED: (PENDING PHARMACY ID) (Amox Tr/Potassium Clavulanate [Augmentin 875-125 Mg Tablet] 1 TAB) PO SCH (10:00)
[2017-11-21] MEDS ORDERED: HYDROMORPHONE HCL INJ/PF 2 MG/ML AMPULE ONE (10:53)
[2017-11-21] MEDS: MEDROXYPROGESTERONE ACET 10 MG TABLET PO SCH (14:51)
[2017-11-21] MEDS ORDERED: LIDOCAINE 1% INJ-PF (10 MG/ML) 30 ML SDV IV PRN (15:05)
--- NOTE | 2017-11-21 15:40 | PDOC PROGRESS REPORT ---
Subjective Progress Note for:: 11/21/17 Subjective:: Yesterday PM was taken to the OR for left transmetatarsal amputation by Dr. Kwan. Procedure tolerated well, seen by surg today and had wound vac placed. Continues to endorse pain. States that some pain control is achieved however it only last for 2-3 hours. Tolerating PO diet. No BM in last 24 hours however will monitor. No other complaints. Reason For Visit: LEFT DIABETIC FOOT INFECTION,CONSIDER Physical Exam Vital Signs: Temp Pulse Resp BP Pulse Ox 98.0 F 76 18 123/62 76 L 11/21/17 11:52 11/21/17 11:52 11/21/17 11:52 11/21/17 11:52 11/21/17 11:52 Pulse Oximeter Continuous Start: 11/20/17 20: 00 Freq: RTQ4 Status: Active Document 11/21/17 11:34 TPO (Rec: 11/21/17 11:35 TPO [email or web address]) Pulse Oximetry Assessment Oxygen Saturation (92-100) 100 Oxygen Delivery Method Room Air Fraction of Inspired Oxygen (FIO2) 21 Equipment Usage Equipment in Use Continuous SpO2 Machine # 8 Intake & Output 11/20/17 11/21/17 11/22/17 06:59 06:59 06:59 Intake Total 1700 532 Output Total 100 Balance 1600 532 Weight 125.5 kg General appearance: PRESENT: mild distress - Secondary to pain, obese Head exam: PRESENT: atraumatic Mouth exam: PRESENT: moist Respiratory exam: PRESENT: unlabored Cardiovascular exam: PRESENT: RRR. ABSENT: systolic murmur GI/Abdominal exam: PRESENT: soft. ABSENT: tenderness Extremities exam: PRESENT: other - Left foot amputation with wound vac attached. No active signs of infection Neurological exam: PRESENT: alert, awake, CN II-XII grossly intact Results Laboratory Results: 11/21/17 04:34 11/21/17 04:34 11/20/17 11/21/17 11/21/17 14:44 04:34 04:34 WBC 9.9 RBC 2.90 L Hgb 7.8 L Hct 23.5 L MCV 81 MCH 27.0 MCHC 33.4 RDW 15.7 H Plt Count 345 Sodium 140.0 Potassium 4.4 Chloride 108 H Carbon Dioxide 25 Anion Gap 7 BUN 23 H Creatinine 1.35 H Est GFR ( Amer) 52 L Est GFR (Non-Af Amer) 43 L Glucose 150 H Calcium 8.7 Total Bilirubin 0.6 AST 31 ALT 26 Alkaline Phosphatase 114 Total Protein 6.9 Albumin 3.1 L Blood Type B POSITIVE Antibody Screen NEGATIVE Impressions: Foot X-Ray 11/20/17 09:54 IMPRESSION: Demineralization along the 1st 2nd and 3rd metatarsal stumps worrisome for infection Large soft tissue ulcer at the amputation site Venous Doppler Study 11/20/17 09:55 IMPRESSION: NO EVIDENCE OF DVT OR SVT IN THE LEFT LEG. Operative report reviewed from 11/20/17 Assessment & Plan - Diagnosis (1) Infection of amputation stump of left lower extremity Is this a current diagnosis for this admission?: Yes Plan: Known history of LLE cellulitis and osteomyelitis in setting of T2DM. Seen by Gen surg who proceeded with left transtarsal amputation on 11/20/17. - Procedure tolerated well, currently with wound vac in place - Blood cultures: NGTD, repeat pending - Due to access issues, surgery will place central line. D/w PICC team and not available to place today - Continue Vanc/Cefepime for now, can transition to PO in 1-2 days - Pain control: Oxy 10mg PO q6 hours PRN + Morphine 2mg Q4 hours PRN severe pain ; will avoid scheduling pain meds (2) Diabetes mellitus type 1.5 Is this a current diagnosis for this admission?: Yes Plan: Known history of DM - Continue home Levemir 70U daily, Trulicity - D/c-ed Simvastatin, started Lipitor 80mg qhs given CV risk factors - Continue Lisinopril (3) Morbid obesity with BMI of 50.0-59.9, adult Is this a current diagnosis for this admission?: Yes Plan: Per above - Encourage weight loss (4) Status post transmetatarsal amputation of left foot Is this a current diagnosis for this admission?: Yes Plan: See above - Neurontin also ordered for nerve pain control (5) Anemia Qualifiers: Anemia type: iron deficiency Iron deficiency anemia type: inadequate dietary iron intake Qualified Code(s): D50.8 - Other iron deficiency anemias Is this a current diagnosis for this admission?: Yes Plan: Hg 7.8, post surgical. Will continue to monitor - Transfusion threshold Hg>8
[2017-11-21] MEDS: VANCOMYCIN HCL 1,250 MG in DEXTROSE 5%-WATER 250 ML IV SCH (17:58)
[2017-11-21] MEDS: CEFEPIME 1 GM/D5W RTU 1 GM/50 ML RTUPB IV SCH (17:58)
[2017-11-21] MEDS: CETIRIZINE 10 MG TABLET PO SCH (18:03)
[2017-11-21] MEDS: INSULIN DETEMIR 100 UNIT/ML 3 ML PEN SUBCUT SCH (18:05)
[2017-11-21] MEDS: ATORVASTATIN CALCIUM 80 MG TABLET PO SCH (21:02)
--- NOTE | 2017-11-21 21:52 | PDOC PROGRESS REPORT ---
Subjective Progress Note for:: 11/21/17 Subjective:: POD #1 s/p guillotine amputation of left ankle No new issues today Reason For Visit: LEFT DIABETIC FOOT INFECTION,CONSIDER Physical Exam Vital Signs: Temp Pulse Resp BP Pulse Ox 97.7 F 82 17 123/69 100 11/21/17 20:00 11/21/17 20:00 11/21/17 20:00 11/21/17 20:00 11/21/17 20:00 Pulse Oximeter Continuous Start: 11/20/17 20: 00 Freq: RTQ4 Status: Complete Document 11/21/17 11:34 TPO (Rec: 11/21/17 11:35 TPO [email or web address]) Pulse Oximetry Assessment Oxygen Saturation (92-100) 100 Oxygen Delivery Method Room Air Fraction of Inspired Oxygen (FIO2) 21 Equipment Usage Equipment in Use Continuous SpO2 Machine # 8 Intake & Output 11/20/17 11/21/17 11/22/17 06:59 06:59 06:59 Intake Total 1700 1557 Output Total 100 Balance 1600 1557 Weight 125.5 kg General appearance: PRESENT: no acute distress Respiratory exam: PRESENT: clear to auscultation mary, unlabored Cardiovascular exam: PRESENT: +S1, +S2 GI/Abdominal exam: PRESENT: normal bowel sounds, soft Extremities exam: PRESENT: other - Left ankle guillotine amputation stump appears clean, still some edema of the lower leg Neurological exam: PRESENT: alert, awake, oriented to person, oriented to place , oriented to time, oriented to situation, CN II-XII grossly intact Results Laboratory Results: 11/21/17 04:34 11/21/17 04:34 11/21/17 11/21/17 04:34 04:34 WBC 9.9 RBC 2.90 L Hgb 7.8 L Hct 23.5 L MCV 81 MCH 27.0 MCHC 33.4 RDW 15.7 H Plt Count 345 Sodium 140.0 Potassium 4.4 Chloride 108 H Carbon Dioxide 25 Anion Gap 7 BUN 23 H Creatinine 1.35 H Est GFR ( Amer) 52 L Est GFR (Non-Af Amer) 43 L Glucose 150 H Calcium 8.7 Total Bilirubin 0.6 AST 31 ALT 26 Alkaline Phosphatase 114 Total Protein 6.9 Albumin 3.1 L Impressions: Foot X-Ray 11/20/17 09:54 IMPRESSION: Demineralization along the 1st 2nd and 3rd metatarsal stumps worrisome for infection Large soft tissue ulcer at the amputation site Venous Doppler Study 11/20/17 09:55 IMPRESSION: NO EVIDENCE OF DVT OR SVT IN THE LEFT LEG. Assessment & Plan - Diagnosis (1) Status post transmetatarsal amputation of left foot Is this a current diagnosis for this admission?: Yes (2) Infection of amputation stump of left lower extremity Is this a current diagnosis for this admission?: Yes Plan: Will apply a wound vac to the [facility] amputation stump (3) Diabetes mellitus type 1.5 Is this a current diagnosis for this admission?: Yes (4) Morbid obesity with BMI of 50.0-59.9, adult Is this a current diagnosis for this admission?: Yes - Time Time Spent with patient: 35 or more minutes Anticipated discharge: Home
[2017-11-21] MEDS ORDERED: SIMVASTATIN 10 MG TABLET PO SCH (22:00)
--- NOTE | 2017-11-21 22:47 | PDOC PROGRESS REPORT ---
Bedside Procedure - History of Present Illness Indication for Procedure: phlebosclerosis - Central Line Right Internal jugular Time completed: 22:40 Consent obtained: Yes Central line pre-insertion: Sterile PPE donned, Chloraprep applied, Sterile drapes applied Central line size (Fr.): 7 Central line lumen type: Triple Anesthetic type: 1% Lidocaine mL's of anesthesia: 20 Ultrasound guided: Yes CM at insertion site: 18 Line secured with sutures: Yes Central line post-insertion: Blood return from lumens, Biopatch applied, Sutured , Position confirmed w/ CXR Number of attempts: 1 Complications: No
--- NOTE | 2017-11-22 00:07 | RADIOLOGY REPORT (SQ) ---
EXAM DESCRIPTION: CHEST SINGLE VIEW COMPLETED DATE/TIME: 11/21/2017 11:52 pm REASON FOR STUDY: Check central line placement. COMPARISON: Chest x-ray 09/17/2017. EXAM PARAMETERS: NUMBER OF VIEWS: One view. TECHNIQUE: Single frontal radiographic view of the chest acquired. RADIATION DOSE: NA LIMITATIONS: None. FINDINGS: LUNGS AND PLEURA: No consolidation, pneumothorax or pleural effusion. MEDIASTINUM AND HILAR STRUCTURES: No masses. Contour normal. HEART AND VASCULAR STRUCTURES: Heart normal in size. Normal vasculature. BONES: No acute findings. HARDWARE: Right IJ central line with the tip at the cavoatrial junction. IMPRESSION: Right IJ central line tip at the cavoatrial junction. TECHNICAL DOCUMENTATION: JOB ID: [id number] 2010 [employer]- All Rights Reserved
[2017-11-22] MEDS: VANCOMYCIN HCL 1,250 MG in DEXTROSE 5%-WATER 250 ML IV SCH (00:29)
[2017-11-22] MEDS: CEFEPIME 1 GM/D5W RTU 1 GM/50 ML RTUPB IV SCH ×2 (00:29→09:54)
[2017-11-22] MEDS ORDERED: CEFEPIME 1 GM/D5W RTU 1 GM/50 ML RTUPB IV ONE (00:30)
[2017-11-22] MEDS ORDERED: VANCOMYCIN HCL 1,250 MG in DEXTROSE 5%-WATER 250 ML IV ONE (00:30)
[2017-11-22] MEDS: MORPHINE SULFATE 10 MG/ML INJ IV PRN ×4 (00:42→21:26)
[2017-11-22] MEDS: ALBUTEROL SULFATE HFA (90 MCG/PUFF) 200 PUFF/8.5 GM MDI IH SCH ×6 (01:14→21:28)
[2017-11-22] MEDS: CLONIDINE HCL 0.1 MG TABLET PO SCH ×5 (01:14→23:51)
[2017-11-22] MEDS: HEPARIN SOD (PORCINE) 5,000 UNIT/ML 1 ML SYRINGE SUBCUT SCH ×3 (05:30→21:26)
[2017-11-22] MEDS: LANSOPRAZOLE 15 MG TAB.RAP.DR PO SCH (05:53)
[2017-11-22] MEDS: OXYCODONE HCL IR 5 MG TABLET PO PRN ×2 (05:53→11:45)
[2017-11-22] MEDS: PREGABALIN 75 MG CAPSULE PO SCH ×3 (05:53→21:26)
[2017-11-22 07:19] LABS: ANION GAP 10 (5-19); BLOOD UREA NITROGEN 29 mg/dL (7-20); CALCIUM 8.9 mg/dL (8.4-10.2); CARBON DIOXIDE 23 mmol/L (22-30); CHLORIDE 107 mmol/L (98-107); GLUCOSE 104 mg/dL (75-110); POTASSIUM 4.7 mmol/L (3.6-5.0); SODIUM 139.9 mmol/L (137-145)
[2017-11-22 07:37] LABS: HEMATOCRIT 21.4 % (36.0-47.0); MEAN CORPUSCULAR HEMOGLOBIN 27.7 pg (27.0-33.4); MEAN CORPUSCULAR HGB CONC 33.9 g/dL (32.0-36.0); MEAN CORPUSCULAR VOLUME 82 fl (80-97); PLATELET COUNT 343 10^3/uL (150-450); RED BLOOD COUNT 2.62 10^6/uL (3.72-5.28); RED CELL DISTRIBUTION WIDTH 15.4 % (11.5-14.0); WHITE BLOOD COUNT 8.9 10^3/uL (4.0-10.5)
[2017-11-22 07:39] LABS: HEMOGLOBIN 7.2 g/dL (12.0-15.5)
[2017-11-22] MEDS: FERROUS SULFATE 325 MG TABLET PO SCH ×3 (09:57→17:16)
[2017-11-22] MEDS: ASPIRIN 81 MG TABLET, ENT COATED PO SCH (09:57)
[2017-11-22] MEDS: CETIRIZINE 10 MG TABLET PO SCH (09:57)
[2017-11-22] MEDS: INSULIN DETEMIR 100 UNIT/ML 3 ML PEN SUBCUT SCH (09:59)
[2017-11-22] MEDS: HYDROCHLOROTHIAZIDE 25 MG TABLET PO SCH (10:01)
[2017-11-22] MEDS: AMLODIPINE BESYLATE 5 MG TABLET PO SCH (10:01)
[2017-11-22] MEDS: LISINOPRIL 10 MG TABLET PO SCH (10:01)
[2017-11-22] MEDS: FLUTICASONE/SALMETEROL DISKUS 500-50 MCG/DOSE IH SCH ×2 (10:01→17:22)
[2017-11-22] MEDS: FUROSEMIDE 20 MG TABLET PO SCH (10:01)
[2017-11-22] MEDS: MEDROXYPROGESTERONE ACET 10 MG TABLET PO SCH (12:09)
--- NOTE | 2017-11-22 16:27 | PDOC PROGRESS REPORT ---
Subjective Progress Note for:: 11/22/17 Subjective:: POD #2 s/p left ankle guillotine amputation Doing subjectively well. No pain or fever. Reason For Visit: LEFT DIABETIC FOOT INFECTION,CONSIDER Physical Exam Vital Signs: Temp Pulse Resp BP Pulse Ox 98.2 F 90 12 107/56 L 100 11/22/17 11:08 11/22/17 11:08 11/22/17 11:08 11/22/17 11:08 11/22/17 11:08 Pulse Oximeter Continuous Start: 11/20/17 20: 00 Freq: RTQ4 Status: Complete Document 11/21/17 11:34 TPO (Rec: 11/21/17 11:35 TPO [email or web address]) Pulse Oximetry Assessment Oxygen Saturation (92-100) 100 Oxygen Delivery Method Room Air Fraction of Inspired Oxygen (FIO2) 21 Equipment Usage Equipment in Use Continuous SpO2 Machine # 8 Intake & Output 11/21/17 11/22/17 11/23/17 06:59 06:59 06:59 Intake Total 1700 2199 Output Total 100 Balance 1600 2199 Weight 125.5 kg 129.6 kg General appearance: PRESENT: no acute distress Eye exam: PRESENT: EOMI Respiratory exam: PRESENT: clear to auscultation mary, unlabored Cardiovascular exam: PRESENT: RRR, +S1, +S2 GI/Abdominal exam: PRESENT: normal bowel sounds, soft Extremities exam: PRESENT: other - left ankle guillotine amputation stump with wound vac in place Musculoskeletal exam: PRESENT: other - left ankle guillotine amputation stump with wound vac in place Neurological exam: PRESENT: alert, awake, oriented to person, oriented to place , oriented to time, CN II-XII grossly intact Results Laboratory Results: 11/22/17 07:03 11/22/17 05:55 11/22/17 11/22/17 05:55 07:03 WBC 8.9 RBC 2.62 L Hgb 7.2 L Hct 21.4 L MCV 82 MCH 27.7 MCHC 33.9 RDW 15.4 H Plt Count 343 Sodium 139.9 Potassium 4.7 Chloride 107 Carbon Dioxide 23 Anion Gap 10 BUN 29 H Creatinine 1.51 H Est GFR ( Amer) 46 L Est GFR (Non-Af Amer) 38 L Glucose 104 Calcium 8.9 Impressions: Foot X-Ray 11/20/17 09:54 IMPRESSION: Demineralization along the 1st 2nd and 3rd metatarsal stumps worrisome for infection Large soft tissue ulcer at the amputation site Venous Doppler Study 11/20/17 09:55 IMPRESSION: NO EVIDENCE OF DVT OR SVT IN THE LEFT LEG. Chest X-Ray 11/21/17 00:00 IMPRESSION: Right IJ central line tip at the cavoatrial junction. Assessment & Plan - Diagnosis (1) Status post transmetatarsal amputation of left foot Is this a current diagnosis for this admission?: Yes (2) Infection of amputation stump of left lower extremity Is this a current diagnosis for this admission?: Yes Plan: Patient can be discharged from surgical standpoint. Continue home wound vac and home health care - she has one. Continue F/U in wound care center. Home on PO antibiotics x 1 week. (3) Diabetes mellitus type 1.5 Is this a current diagnosis for this admission?: Yes (4) Morbid obesity with BMI of 50.0-59.9, adult Is this a current diagnosis for this admission?: Yes - Time Time Spent with patient: 15-24 minutes Anticipated discharge: Home with Homehealth Within: within 24 hours
[2017-11-22 16:55] LABS: MEAN CORPUSCULAR HEMOGLOBIN 27.4 pg (27.0-33.4); MEAN CORPUSCULAR HGB CONC 33.5 g/dL (32.0-36.0); MEAN CORPUSCULAR VOLUME 82 fl (80-97); PLATELET COUNT 329 10^3/uL (150-450); RED BLOOD COUNT 2.45 10^6/uL (3.72-5.28); RED CELL DISTRIBUTION WIDTH 15.3 % (11.5-14.0); WHITE BLOOD COUNT 8.3 10^3/uL (4.0-10.5)
[2017-11-22 17:08] LABS: HEMOGLOBIN 6.7 g/dL (12.0-15.5)
[2017-11-22] MEDS ORDERED: NORMAL SALINE 250 ML IV PRN ×2 (17:39)
--- NOTE | 2017-11-22 17:45 | PDOC PROGRESS REPORT ---
Subjective Progress Note for:: 11/22/17 Subjective:: S/p left transmetatarsal amputation by Dr. Kwan on 2/, POD #1. Doing OK. Continues to endorse pain but adequate pain control on current regimen. Tolerating PO diet. No BM in last 24 hours however will monitor. No other complaints. Wants to work with PT as she did not like walker. Reason For Visit: LEFT DIABETIC FOOT INFECTION,CONSIDER Physical Exam Vital Signs: Temp Pulse Resp BP Pulse Ox 98.4 F 87 12 105/53 L 100 11/22/17 15:37 11/22/17 15:37 11/22/17 15:37 11/22/17 15:37 11/22/17 15:37 Pulse Oximeter Continuous Start: 11/20/17 20: 00 Freq: RTQ4 Status: Complete Document 11/21/17 11:34 TPO (Rec: 11/21/17 11:35 TPO [email or web address]) Pulse Oximetry Assessment Oxygen Saturation (92-100) 100 Oxygen Delivery Method Room Air Fraction of Inspired Oxygen (FIO2) 21 Equipment Usage Equipment in Use Continuous SpO2 Machine # 8 Intake & Output 11/21/17 11/22/17 11/23/17 06:59 06:59 06:59 Intake Total 1700 2199 Output Total 100 Balance 1600 2199 Weight 125.5 kg 129.6 kg Results Laboratory Results: 11/22/17 16:30 11/22/17 05:55 11/22/17 11/22/17 11/22/17 05:55 07:03 16:30 WBC 8.9 8.3 RBC 2.62 L 2.45 L Hgb 7.2 L 6.7 L Hct 21.4 L 20.0 L MCV 82 82 MCH 27.7 27.4 MCHC 33.9 33.5 RDW 15.4 H 15.3 H Plt Count 343 329 Sodium 139.9 Potassium 4.7 Chloride 107 Carbon Dioxide 23 Anion Gap 10 BUN 29 H Creatinine 1.51 H Est GFR ( Amer) 46 L Est GFR (Non-Af Amer) 38 L Glucose 104 Calcium 8.9 Impressions: Foot X-Ray 11/20/17 09:54 IMPRESSION: Demineralization along the 1st 2nd and 3rd metatarsal stumps worrisome for infection Large soft tissue ulcer at the amputation site Venous Doppler Study 11/20/17 09:55 IMPRESSION: NO EVIDENCE OF DVT OR SVT IN THE LEFT LEG. Chest X-Ray 11/21/17 00:00 IMPRESSION: Right IJ central line tip at the cavoatrial junction. Assessment & Plan - Diagnosis (1) Infection of amputation stump of left lower extremity Is this a current diagnosis for this admission?: Yes Plan: Known history of LLE cellulitis and osteomyelitis in setting of T2DM. Seen by Gen surg who proceeded with left transtarsal amputation on 11/20/17. - Procedure tolerated well, currently with wound vac in place - Blood cultures: NGTD * 2 - Central line in place by surgery, can d/c on 11/23 prior to discharge - D/c-ed Vanc/Cefepime on 11/22, started Unasyn PO for 4 day course. Discussed with surgicalist - Pain control: Oxy 10mg PO q6 hours PRN + Morphine 2mg Q4 hours PRN severe pain ; will avoid scheduling pain meds - OK to discharge on 11/23 with follow up at wound care team; home with home health - Follow up with surgery as outpatient to plan next surgery which will be BKA (2) Diabetes mellitus type 1.5 Is this a current diagnosis for this admission?: Yes (3) Morbid obesity with BMI of 50.0-59.9, adult Is this a current diagnosis for this admission?: Yes Plan: Per above - Encouraged weight loss (4) Status post transmetatarsal amputation of left foot Is this a current diagnosis for this admission?: Yes (5) Anemia Qualifiers: Anemia type: iron deficiency Iron deficiency anemia type: inadequate dietary iron intake Qualified Code(s): D50.8 - Other iron deficiency anemias Is this a current diagnosis for this admission?: Yes Plan: Hg 6.7 on repeat check on 11/22. No active source of bleeding, likely post surgical and hemo-dilutional - Will give 1U pRBC - Patient's son has sickle cell disease, query if she has underlying Sickle cell - Transfusion threshold Hg>7 - Repeat CBC in AM (6) CKD (chronic kidney disease) Is this a current diagnosis for this admission?: Yes Plan: Cr 1.5. Increased from 2/3 when 1.3. - Encourage PO intake - Time Time Spent with patient: 15-24 minutes Anticipated discharge: Home with Homehealth Within: within 24 hours - Plan Summary Plan Summary: Improved, d/c likely on 11/23 pending improvement in Hg
[2017-11-22] MEDS: AMOXICILLIN TR/POT CLAVULANATE 500-125 MG TAB PO SCH (21:26)
[2017-11-22] MEDS: ATORVASTATIN CALCIUM 80 MG TABLET PO SCH (21:26)
[2017-11-23] MEDS: ALBUTEROL SULFATE HFA (90 MCG/PUFF) 200 PUFF/8.5 GM MDI IH SCH ×6 (01:27→21:28)
[2017-11-23] MEDS: MORPHINE SULFATE 10 MG/ML INJ IV PRN ×4 (03:39→21:19)
[2017-11-23] MEDS: PREGABALIN 75 MG CAPSULE PO SCH ×3 (05:23→21:27)
[2017-11-23] MEDS: AMOXICILLIN TR/POT CLAVULANATE 500-125 MG TAB PO SCH ×3 (05:23→21:27)
[2017-11-23] MEDS: LANSOPRAZOLE 15 MG TAB.RAP.DR PO SCH (05:23)
[2017-11-23] MEDS: HEPARIN SOD (PORCINE) 5,000 UNIT/ML 1 ML SYRINGE SUBCUT SCH ×3 (05:23→21:27)
[2017-11-23] MEDS: CLONIDINE HCL 0.1 MG TABLET PO SCH ×3 (05:23→17:02)
[2017-11-23 06:21] LABS: HEMATOCRIT 22.3 % (36.0-47.0); MEAN CORPUSCULAR HEMOGLOBIN 28.2 pg (27.0-33.4); MEAN CORPUSCULAR HGB CONC 34.5 g/dL (32.0-36.0); MEAN CORPUSCULAR VOLUME 82 fl (80-97); PLATELET COUNT 317 10^3/uL (150-450); RED BLOOD COUNT 2.73 10^6/uL (3.72-5.28); RED CELL DISTRIBUTION WIDTH 15.6 % (11.5-14.0); WHITE BLOOD COUNT 8.6 10^3/uL (4.0-10.5)
[2017-11-23 06:23] LABS: HEMOGLOBIN 7.7 g/dL (12.0-15.5)
[2017-11-23] MEDS ORDERED: NORMAL SALINE 250 ML IV PRN ×2 (07:45)
[2017-11-23] MEDS: ASPIRIN 81 MG TABLET, ENT COATED PO SCH (09:53)
[2017-11-23] MEDS: MEDROXYPROGESTERONE ACET 10 MG TABLET PO SCH (09:53)
[2017-11-23] MEDS: FERROUS SULFATE 325 MG TABLET PO SCH ×3 (09:54→17:01)
[2017-11-23] MEDS: CETIRIZINE 10 MG TABLET PO SCH (09:54)
[2017-11-23] MEDS: INSULIN DETEMIR 100 UNIT/ML 3 ML PEN SUBCUT SCH (09:54)
[2017-11-23] MEDS: HYDROCHLOROTHIAZIDE 25 MG TABLET PO SCH (09:58)
[2017-11-23] MEDS: LISINOPRIL 10 MG TABLET PO SCH (09:58)
[2017-11-23] MEDS: AMLODIPINE BESYLATE 5 MG TABLET PO SCH (09:59)
[2017-11-23] MEDS: FLUTICASONE/SALMETEROL DISKUS 500-50 MCG/DOSE IH SCH ×2 (10:00→17:02)
[2017-11-23] MEDS: FUROSEMIDE 20 MG TABLET PO SCH (10:00)
--- NOTE | 2017-11-23 12:57 | PDOC PROGRESS REPORT ---
Subjective Progress Note for:: 11/23/17 Subjective:: No complaints Review of systems All organ systems evaluated and negative except as in subjective All significant laboratory and diagnostics have been reviewed Reason For Visit: LEFT DIABETIC FOOT INFECTION,CONSIDER Physical Exam Vital Signs: Temp Pulse Resp BP Pulse Ox 98 F 98 18 123/67 100 11/23/17 04:00 11/23/17 04:00 11/23/17 04:00 11/23/17 04:00 11/23/17 04:00 Pulse Oximeter Continuous Start: 11/20/17 20: 00 Freq: RTQ4 Status: Complete Document 11/21/17 11:34 TPO (Rec: 11/21/17 11:35 TPO [email or web address]) Pulse Oximetry Assessment Oxygen Saturation (92-100) 100 Oxygen Delivery Method Room Air Fraction of Inspired Oxygen (FIO2) 21 Equipment Usage Equipment in Use Continuous SpO2 Machine # 8 Intake & Output 11/22/17 11/23/17 11/24/17 06:59 06:59 06:59 Intake Total 2199 1350 Balance 2199 1350 Weight 129.6 kg 129.6 kg General appearance: PRESENT: cooperative, obese Head exam: PRESENT: atraumatic, normocephalic Eye exam: PRESENT: EOMI, PERRLA Ear exam: PRESENT: normal external ear exam Mouth exam: PRESENT: moist Neck exam: PRESENT: full ROM. ABSENT: JVD, lymphadenopathy, tenderness Respiratory exam: PRESENT: clear to auscultation mary Cardiovascular exam: PRESENT: RRR. ABSENT: diastolic murmur, systolic murmur Vascular exam: PRESENT: normal capillary refill GI/Abdominal exam: PRESENT: normal bowel sounds, soft. ABSENT: tenderness Extremities exam: PRESENT: other - Wound VAC noted to stump of left leg Neurological exam: PRESENT: alert, awake, oriented to person, oriented to place , oriented to time, oriented to situation, CN II-XII grossly intact Psychiatric exam: PRESENT: appropriate affect, normal mood Skin exam: PRESENT: normal color Results Laboratory Results: 11/23/17 05:45 11/22/17 05:55 11/20/17 11/22/17 11/23/17 14:44 16:30 05:45 WBC 8.3 8.6 RBC 2.45 L 2.73 L Hgb 6.7 L 7.7 L Hct 20.0 L 22.3 L MCV 82 82 MCH 27.4 28.2 MCHC 33.5 34.5 RDW 15.3 H 15.6 H Plt Count 329 317 Blood Type B POSITIVE Antibody Screen NEGATIVE Impressions: Foot X-Ray 11/20/17 09:54 IMPRESSION: Demineralization along the 1st 2nd and 3rd metatarsal stumps worrisome for infection Large soft tissue ulcer at the amputation site Venous Doppler Study 11/20/17 09:55 IMPRESSION: NO EVIDENCE OF DVT OR SVT IN THE LEFT LEG. Chest X-Ray 11/21/17 00:00 IMPRESSION: Right IJ central line tip at the cavoatrial junction. Assessment & Plan - Diagnosis (1) Anemia associated with acute blood loss Is this a current diagnosis for this admission?: Yes Plan: Order 1 packed red blood cell to be transfused today and trend (2) CKD (chronic kidney disease) Qualifiers: Chronic kidney disease stage: stage 3 (moderate) Qualified Code(s): N18.3 - Chronic kidney disease, stage 3 (moderate) Is this a current diagnosis for this admission?: Yes Plan: Stable and trend (3) Infection of amputation stump of left lower extremity Is this a current diagnosis for this admission?: Yes Plan: Continue Augmentin. (4) Morbid obesity with BMI of 50.0-59.9, adult Is this a current diagnosis for this admission?: Yes Plan: Patient educated about lifestyle modification (5) Status post transmetatarsal amputation of left foot Is this a current diagnosis for this admission?: Yes Plan: Tolerated procedure well. Consult case management since appears the patient will need to go home on wound VAC - Time Time Spent with patient: 15-24 minutes Medications reviewed and adjusted accordingly: Yes Anticipated discharge: Acute Rehab Within: within 24 hours - Inpatient Certification Based on my medical assessment, after consideration of the patient's comorbidities, presenting symptoms, or acuity I expect that the services needed warrant INPATIENT care.: Yes I certify that my determination is in accordance with my understanding of Medicare's requirements for reasonable and necessary INPATIENT services [42 CFR 412.3e].: Yes Medical Necessity: Need Close Monitoring Due to Risk of Patient Decompensation
[2017-11-23] MEDS ORDERED: MULTIVITAMIN TABLET PO ONE (14:00)
[2017-11-23] MEDS: OXYCODONE HCL IR 5 MG TABLET PO PRN (16:39)
[2017-11-23] MEDS: NORMAL SALINE INJ/PF 0.9% 10 ML SDV IV PRN ×2 (16:56→21:22)
[2017-11-23] MEDS: ASCORBIC ACID 500 MG TABLET PO SCH (17:01)
[2017-11-23 17:15] LABS: ABSOLUTE EOSINOPHILS # (AUTO) 0.6 10^3/uL (0.0-0.6); ABSOLUTE LYMPHOCYTES (AUTO) 2.7 10^3/uL (0.5-4.7); ABSOLUTE MONOCYTES (AUTO) 0.7 10^3/uL (0.1-1.4); ABSOLUTE NEUT (AUTO) 6.5 10^3/uL (1.7-8.2); BASOPHILS % (AUTO) 0.4 % (0-2); EOSINOPHILS % (AUTO) 5.6 % (0-6); HEMATOCRIT 25.2 % (36.0-47.0); HEMOGLOBIN 8.6 g/dL (12.0-15.5); LYMPHOCYTES % (AUTO) 25.8 % (13-45); MEAN CORPUSCULAR HEMOGLOBIN 28.3 pg (27.0-33.4); MEAN CORPUSCULAR HGB CONC 34.3 g/dL (32.0-36.0); MEAN CORPUSCULAR VOLUME 82 fl (80-97); MONOCYTES % (AUTO) 6.2 % (3-13); PLATELET COUNT 312 10^3/uL (150-450); RED BLOOD COUNT 3.06 10^6/uL (3.72-5.28); RED CELL DISTRIBUTION WIDTH 15.1 % (11.5-14.0); TOTAL CELLS COUNTED % (AUTO) 100 %; WHITE BLOOD COUNT 10.4 10^3/uL (4.0-10.5)
[2017-11-23] MEDS: ATORVASTATIN CALCIUM 80 MG TABLET PO SCH (21:27)
[2017-11-24] MEDS: CLONIDINE HCL 0.1 MG TABLET PO SCH ×3 (00:22→13:54)
[2017-11-24] MEDS: OXYCODONE HCL IR 5 MG TABLET PO PRN ×2 (00:32→11:16)
[2017-11-24] MEDS: ALBUTEROL SULFATE HFA (90 MCG/PUFF) 200 PUFF/8.5 GM MDI IH SCH ×4 (01:04→13:56)
[2017-11-24] MEDS: PREGABALIN 75 MG CAPSULE PO SCH ×2 (05:53→13:54)
[2017-11-24] MEDS: AMOXICILLIN TR/POT CLAVULANATE 500-125 MG TAB PO SCH ×2 (05:53→13:55)
[2017-11-24] MEDS: LANSOPRAZOLE 15 MG TAB.RAP.DR PO SCH (05:53)
[2017-11-24] MEDS: MORPHINE SULFATE 10 MG/ML INJ IV PRN ×2 (05:59→11:19)
[2017-11-24] MEDS: HEPARIN SOD (PORCINE) 5,000 UNIT/ML 1 ML SYRINGE SUBCUT SCH ×2 (06:03→13:56)
[2017-11-24] MEDS ORDERED: MULTIVITAMIN TABLET PO SCH (10:00)
[2017-11-24] MEDS: AMLODIPINE BESYLATE 5 MG TABLET PO SCH (11:06)
[2017-11-24] MEDS: LISINOPRIL 10 MG TABLET PO SCH (11:06)
[2017-11-24] MEDS: HYDROCHLOROTHIAZIDE 25 MG TABLET PO SCH (11:06)
[2017-11-24] MEDS: FUROSEMIDE 20 MG TABLET PO SCH (11:06)
[2017-11-24] MEDS: ASCORBIC ACID 500 MG TABLET PO SCH (11:15)
[2017-11-24] MEDS: MEDROXYPROGESTERONE ACET 10 MG TABLET PO SCH (11:17)
[2017-11-24] MEDS: FERROUS SULFATE 325 MG TABLET PO SCH ×2 (11:17→13:54)
[2017-11-24] MEDS: ASPIRIN 81 MG TABLET, ENT COATED PO SCH (11:18)
[2017-11-24] MEDS: CETIRIZINE 10 MG TABLET PO SCH (11:18)
[2017-11-24] MEDS: INSULIN DETEMIR 100 UNIT/ML 3 ML PEN SUBCUT SCH (11:18)
[2017-11-24] MEDS: FLUTICASONE/SALMETEROL DISKUS 500-50 MCG/DOSE IH SCH (11:21)
[2017-11-24 15:06] VITALS: BP 123/67
--- NOTE | 2017-11-24 15:41 | PDOC DISCHARGE SUMMARY ---
General - Admit/Disc Date/PCP Admission Date/Primary Care Provider: 11/20/17 11:50 ANT LADD MD Discharge Date: 11/24/17 - Discharge Diagnosis (1) Infection of amputation stump of left lower extremity Is this a current diagnosis for this admission?: Yes (2) Anemia associated with acute blood loss Is this a current diagnosis for this admission?: Yes (3) Diabetes Is this a current diagnosis for this admission?: Yes (4) CKD (chronic kidney disease) Is this a current diagnosis for this admission?: Yes (5) Morbid obesity with BMI of 50.0-59.9, adult Is this a current diagnosis for this admission?: Yes (6) Status post transmetatarsal amputation of left foot Is this a current diagnosis for this admission?: Yes - Additional Information Resuscitation Status: Full Code Discharge Diet: Diabetic Discharge Activity: Activity As Tolerated Prescriptions: Oxycodone HCl [Oxycodone HCl 10 MG Tablet] 10 mg PO Q6HP PRN #20 tablet PRN Reason: For Pain Home Medications: Albuterol Sulfate [Proair HFA] 2 puff IH Q4H 11/20/17 Amlodipine Besylate [Norvasc 5 mg Tablet] 5 mg PO DAILY 11/20/17 Amox Tr/Potassium Clavulanate [Augmentin 875-125 mg Tablet] 1 tab PO BID Aspirin [Adult Low Dose Aspirin EC] 81 mg PO DAILY 11/20/17 Cetirizine HCl [Zyrtec 10 mg Tablet] 10 mg PO DAILY 11/20/17 Clonidine HCl [Catapres 0.1 mg Tablet] 0.1 mg PO Q6 11/20/17 Dulaglutide [Trulicity] 0.75 mg SQ TH 11/20/17 Ferrous Sulfate [Feosol 325 mg Tablet] 325 mg PO TID 11/20/17 Fluticasone/Salmeterol [Advair 500-50 Diskus 14 Dose/Diskus] 1 puff IH BID 11/20 Furosemide [Lasix 20 mg Tablet] 20 mg PO DAILY 11/20/17 Insulin Aspart [Novolog Flexpen] 0 units SQ .PERSLIDINGSCALE 11/20/17 Insulin Detemir [Levemir Flextouch] 70 units SQ DAILY 11/20/17 Lisinopril/Hydrochlorothiazide [Zestoretic 20-25 mg Tablet] 1 tab PO DAILY 11/20 Medroxyprogesterone Acet [Provera 10 mg Tablet] 10 mg PO DAILY 11/20/17 Omeprazole 20 mg PO DAILY 11/20/17 Pregabalin [Lyrica] 150 mg PO Q8 11/20/17 Simvastatin [Zocor 20 mg Tablet] 20 mg PO DAILY 11/20/17 Ascorbic Acid [Vitamin C 500 mg Tablet] 500 mg PO BID tablet 11/24/17 Multivitamin [Tab-A-Alana (Multiple Vitamin) Tablet] 1 tab PO DAILY tablet 11/24 Oxycodone HCl [Oxycodone HCl 10 MG Tablet] 10 mg PO Q6HP PRN #20 tablet History of Present Illness History of Present Illness: RUTH WOOD is a 42 year old female with type 2 diabetes and obesity. In Sep 2017 she had left foot transmetarsal amputation for diabetic foot infection which was polymibcrobial. Subsequent to that she was on several course of ABX for foot infection. About 2 weeks prior to presentation, a wound vac was placed and she has been followed in local wound care clinic. The wound vac was removed on the day of admission and there was foul smell and drainage. Patient she was sent to ED. There was no fever or chills. She did have significant acute left foot pain and swelling. The hospitalist service was consulted and prompted to admit for further management Hospital Course Hospital Course: Patient was admitted under the hospitalist service. She underwent left foot transmetatarsal amputation stump on November 20, [address] Kwan and tolerated procedure well. Since there was a downward trend of hemoglobin, patient was transfused a total of 2 units of packed red blood cell. At the time of discharge hemoglobin was 8.6 and hematocrit 25.2. Patient was offered rehab but she opted to go home with home health. She was to follow-up at the wound care center on November 27. Since patient had achieved maximum benefit of hospitalization stay prompted to discharge under stable condition. Physical Exam Vital Signs: Temp Pulse Resp BP Pulse Ox 97.5 F 77 16 105/66 100 11/24/17 03:49 11/24/17 03:49 11/24/17 03:49 11/24/17 03:49 11/24/17 03:49 Pulse Oximeter Continuous Start: 11/20/17 20: 00 Freq: RTQ4 Status: Complete Document 11/21/17 11:34 TPO (Rec: 11/21/17 11:35 TPO [email or web address]) Pulse Oximetry Assessment Oxygen Saturation (92-100) 100 Oxygen Delivery Method Room Air Fraction of Inspired Oxygen (FIO2) 21 Equipment Usage Equipment in Use Continuous SpO2 Machine # 8 Intake & Output 11/23/17 11/24/17 11/25/17 06:59 06:59 06:59 Intake Total 1350 2266 Output Total 825 Balance 1350 1441 Weight 129.6 kg 134.4 kg General appearance: PRESENT: no acute distress, cooperative, morbidly obese Head exam: PRESENT: atraumatic, normocephalic Eye exam: PRESENT: conjunctiva pink, EOMI, PERRLA Ear exam: PRESENT: normal external ear exam Mouth exam: PRESENT: moist, neck supple Neck exam: PRESENT: full ROM. ABSENT: JVD, lymphadenopathy, tenderness Respiratory exam: PRESENT: clear to auscultation mary Cardiovascular exam: PRESENT: RRR. ABSENT: diastolic murmur, systolic murmur Vascular exam: PRESENT: normal capillary refill GI/Abdominal exam: PRESENT: normal bowel sounds, soft. ABSENT: tenderness Extremities exam: PRESENT: other - Wound VAC noted in place to left foot stump Musculoskeletal exam: PRESENT: ambulatory Neurological exam: PRESENT: alert, awake, oriented to person, oriented to place , oriented to time, oriented to situation, CN II-XII grossly intact Psychiatric exam: PRESENT: appropriate affect, normal mood Skin exam: PRESENT: normal color Results Laboratory Results: 11/23/17 16:45 11/22/17 05:55 11/20/17 11/23/17 14:44 16:45 WBC 10.4 RBC 3.06 L Hgb 8.6 L Hct 25.2 L MCV 82 MCH 28.3 MCHC 34.3 RDW 15.1 H Plt Count 312 Seg Neutrophils % 62.0 Lymphocytes % 25.8 Monocytes % 6.2 Eosinophils % 5.6 Basophils % 0.4 Absolute Neutrophils 6.5 Absolute Lymphocytes 2.7 Absolute Monocytes 0.7 Absolute Eosinophils 0.6 Absolute Basophils 0.0 Blood Type B POSITIVE Antibody Screen NEGATIVE Impressions: Foot X-Ray 11/20/17 09:54 IMPRESSION: Demineralization along the 1st 2nd and 3rd metatarsal stumps worrisome for infection Large soft tissue ulcer at the amputation site Venous Doppler Study 11/20/17 09:55 IMPRESSION: NO EVIDENCE OF DVT OR SVT IN THE LEFT LEG. Chest X-Ray 11/21/17 00:00 IMPRESSION: Right IJ central line tip at the cavoatrial junction. Plan Discharge Plan: Home with home health Time Spent: Less than 30 Minutes
[2017-11-26] MEDS ORDERED: (PENDING PHARMACY ID) (Dulaglutide [Trulicity] 0.75 MG) SQ SCH (18:43)
== END 2017-11-24 16:07 | disposition home health service (06) | DRG 475 ==
LOC: ER 09:26 → EH 11:50 → 4N 19:43
PROVIDERS: ADMIT Family Medicine; ATTEND Family Medicine
PROC: 0Y6J0Z3 Detachment at Left Lower Leg, Low, Open Approach (ICD-10-PCS; principal; 2017-11-20 15:15)
PROC: 02HV33Z Insertion of Infusion Device into Superior Vena Cava, Percutaneous Approach (ICD-10-PCS; 2017-11-21)
PROC: 30233N1 Transfusion of Nonautologous Red Blood Cells into Peripheral Vein, Percutaneous Approach (ICD-10-PCS; 2017-11-21)
DX: T87.81 Dehiscence of amputation stump (principal); L03.116 Cellulitis of left lower limb; I96 Gangrene, not elsewhere classified; M86.9 Osteomyelitis, unspecified; N17.9 Acute kidney failure, unspecified; E11.52 Type 2 diabetes mellitus with diabetic peripheral angiopathy with gangrene; D62 Acute posthemorrhagic anemia; Z68.43 Body mass index [BMI] 50.0-59.9, adult; T87.44 Infection of amputation stump, left lower extremity; E11.22 Type 2 diabetes mellitus with diabetic chronic kidney disease; I12.9 Hypertensive chronic kidney disease with stage 1 through stage 4 chronic kidney disease, or unspecified chronic kidney disease; N18.3 Chronic kidney disease, stage 3 (moderate); M79.89 Other specified soft tissue disorders; B99.8 Other infectious disease; E78.00 Pure hypercholesterolemia, unspecified; I87.8 Other specified disorders of veins; J45.909 Unspecified asthma, uncomplicated; E11.40 Type 2 diabetes mellitus with diabetic neuropathy, unspecified; G47.30 Sleep apnea, unspecified; E66.01 Morbid (severe) obesity due to excess calories; Z87.891 Personal history of nicotine dependence; Z89.432 Acquired absence of left foot; Z79.82 Long term (current) use of aspirin; Z79.4 Long term (current) use of insulin; Z79.891 Long term (current) use of opiate analgesic; Z79.51 Long term (current) use of inhaled steroids; Z79.899 Other long term (current) drug therapy
CPT/HCPCS: 01482; 36415; 36430; 71045; 80048; 80053; 82962; 84703; 85025; 85027; 85610; 85652; 85730; 86140; 86850; 86900; 86901; 86920; 87040; 88305; 88311; 93971; 94660; 94762; 99285; C1751; G8978-GP; G8979-GP; J0692; J1170; J1642; J1644; J1815; J2250; J2270; J2543; J2704; J3370; J3490; J7030; J7060; P9016

== ENCOUNTER → 2017-12-31 | Outpatient (CLI) | payer MEDICARE, MEDICAID ==
[2017-12-31 13:34] LABS: ABSOLUTE BASOPHILS # (AUTO) 0.1 10^3/uL (0.0-0.2); ABSOLUTE EOSINOPHILS # (AUTO) 0.2 10^3/uL (0.0-0.6); ABSOLUTE MONOCYTES (AUTO) 0.4 10^3/uL (0.1-1.4); ABSOLUTE NEUT (AUTO) 4.7 10^3/uL (1.7-8.2); BASOPHILS % (AUTO) 0.7 % (0-2); EOSINOPHILS % (AUTO) 3.2 % (0-6); HEMATOCRIT 30.7 % (36.0-47.0); HEMOGLOBIN 10.4 g/dL (12.0-15.5); LYMPHOCYTES % (AUTO) 27.2 % (13-45); MEAN CORPUSCULAR VOLUME 82 fl (80-97); MONOCYTES % (AUTO) 5.2 % (3-13); PLATELET COUNT 363 10^3/uL (150-450); RED BLOOD COUNT 3.73 10^6/uL (3.72-5.28); RED CELL DISTRIBUTION WIDTH 14.2 % (11.5-14.0); SEGMENTED NEUTROPHILS % (AUTO) 63.7 % (42-78); TOTAL CELLS COUNTED % (AUTO) 100 %; WHITE BLOOD COUNT 7.4 10^3/uL (4.0-10.5)
[2017-12-31 13:45] LABS: APPEARANCE,URINE SLIGHTLY-CLOUDY; BILIRUBIN,URINE NEGATIVE (NEGATIVE); COLOR,URINE YELLOW; GLUCOSE, URINE NEGATIVE (NEGATIVE); KETONES,URINE NEGATIVE (NEGATIVE); LEUKOCYTE ESTERASE,URINE NEGATIVE (NEGATIVE); NITRITE,URINE NEGATIVE (NEGATIVE); PROTEIN,URINE NEGATIVE (NEGATIVE); URINE SPECIFIC GRAVITY 1.018; UROBILINOGEN,URINE NEGATIVE mg/dL (<2.0)
[2017-12-31 13:51] LABS: ALBUMIN 3.5 g/dL (3.5-5.0); ANION GAP 12 (5-19); BLOOD UREA NITROGEN 29 mg/dL (7-20); CALCIUM 8.9 mg/dL (8.4-10.2); CARBON DIOXIDE 26 mmol/L (22-30); CHLORIDE 106 mmol/L (98-107); GLUCOSE 131 mg/dL (75-110); PHOSPHORUS 3.6 mg/dL (2.5-4.5); POTASSIUM 4.2 mmol/L (3.6-5.0); SODIUM 143.7 mmol/L (137-145)
[2018-01-01 12:39] LABS: CREATININE URINE 112.4 mg/dL (Not Estab.); MICROALBUMIN URINE 20.3 ug/mL (Not Estab.)
== END ==
LOC: OD 12:48
PROVIDERS: ATTEND Internal Medicine Nephrology
DX: E11.22 Type 2 diabetes mellitus with diabetic chronic kidney disease (principal); N18.3 Chronic kidney disease, stage 3 (moderate); D64.9 Anemia, unspecified; E83.39 Other disorders of phosphorus metabolism
CPT/HCPCS: 36415; 80048; 81001; 82040; 82043; 82306; 82570; 83970; 84100; 85025

== ENCOUNTER 2018-01-26 10:39 | Inpatient (IN) | payer MEDICARE, MEDICAID ==
[~2018-01-26 10:39] MED LIST: CEFAZOLIN 1 GM/D5W RTU 1 GM/50 ML RTUPB IV PRN
[2018-01-26] MEDS ORDERED: PHENYLEPHRINE HCL INJ/PF 10 MG/1 ML SDV ONE (10:53)
[2018-01-26 12:17] LABS: HEMATOCRIT 31.6 % (36.0-47.0); HEMOGLOBIN 10.3 g/dL (12.0-15.5); MEAN CORPUSCULAR HGB CONC 32.5 g/dL (32.0-36.0); MEAN CORPUSCULAR VOLUME 83 fl (80-97); PLATELET COUNT 372 10^3/uL (150-450); RED BLOOD COUNT 3.81 10^6/uL (3.72-5.28); RED CELL DISTRIBUTION WIDTH 13.9 % (11.5-14.0); WHITE BLOOD COUNT 7.6 10^3/uL (4.0-10.5)
[2018-01-26 12:37] LABS: ANION GAP 10 (5-19); BLOOD UREA NITROGEN 23 mg/dL (7-20); CALCIUM 9.1 mg/dL (8.4-10.2); CARBON DIOXIDE 29 mmol/L (22-30); CHLORIDE 104 mmol/L (98-107); GLUCOSE 74 mg/dL (75-110); POTASSIUM 4.4 mmol/L (3.6-5.0); SODIUM 142.6 mmol/L (137-145)
[2018-01-26] MEDS ORDERED: CLINDAMYCIN 600 MG/D5W RTU 600 MG/50 ML RTUPB IV PRN (12:42)
[2018-01-26] MEDS ORDERED: 1/2 NORMAL SALINE 1,000 ML IV PRN (12:43)
[2018-01-26] MEDS ORDERED: TETRACAINE HCL/PF 20MG/2ML AMPULE (SPINAL) ONE (15:45)
[2018-01-26] MEDS ORDERED: BACITRACIN INJ 50,000 UNIT VIAL ONE (15:57)
[2018-01-26] MEDS ORDERED: BUPIVACAINE HCL 0.25 % INJ/PF (2.5 MG/1 ML) 30 ML VIAL ONE (15:57)
[2018-01-26] MEDS ORDERED: LIDOCAINE 0.5% INJ-PF (5 MG/ML) 50 ML SDV ONE ×2 (15:57→23:14)
[2018-01-26] MEDS ORDERED: DIPHENHYDRAMINE HCL 50 MG/ML VIAL IV PRN (17:08)
[2018-01-26] MEDS ORDERED: FENTANYL CITRATE INJ/PF 100 MCG/2 ML AMPUL IV PRN ×3 (17:08)
[2018-01-26] MEDS ORDERED: MORPHINE SULFATE 10 MG/ML INJ IV PRN (17:08)
[2018-01-26] MEDS ORDERED: OXYCODONE-ACETAMINOPHEN 5-325 MG TABLET PO PRN ×2 (17:08)
[2018-01-26] MEDS ORDERED: MEPERIDINE HCL/PF INJ 25 MG/1 ML DISP.SYRIN IV PRN (17:08)
[2018-01-26] MEDS ORDERED: PROMETHAZINE HCL INJ 25 MG/1 ML VIAL IV PRN ×3 (17:08→21:23)
[2018-01-26] MEDS ORDERED: LABETALOL HCL INJ 20 MG/4 ML DISP.SYRIN IV ONE (19:34)
[2018-01-26] MEDS: FENTANYL CITRATE INJ/PF 100 MCG/2 ML AMPUL ONE ×2 (20:19→20:22)
[2018-01-26] MEDS: MORPHINE SULFATE 10 MG/ML INJ ONE ×5 (20:19→20:41)
--- NOTE | 2018-01-26 20:28 | Operative Report ---
Operative Report DATE OF SURGERY: 01/26/18 PREOPERATIVE DIAGNOSIS: 1. 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 2. Diabetes mellitus type 2. 3. Obesity. 4. Lower extremity swelling. 5. Hypertension. POSTOPERATIVE DIAGNOSIS: 1. 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 2. Diabetes mellitus type 2. 3. Obesity. 4. Lower extremity swelling. 5. Hypertension. OPERATION: Left below-knee amputation, formal. Revision from guillotine amputation. SURGEON: CHELY JIN MEDICAL RECEPTIONIST ASSISTANT: None. ANESTHESIA: Spinal TISSUE REMOVED OR ALTERED: Left leg remnant of guillotine amputation. COMPLICATIONS: None. ESTIMATED BLOOD LOSS: 500 mL. INTRAOPERATIVE FINDINGS: Of well vascularized but extremely edematous tissue. Large lower extremity making this is somewhat challenging amputation. For these reasons a closed suction drain was left in the wound, intention is to remove it within 48 hours. Also a VAC was applied over Acticoat to the main incision. PROCEDURE: The left lower extremity was prepared with chlorhexidine from the upper thigh down to the lower leg it was draped out with sterile linen. With respect to the nonhealing open guillotine amputation, this was painted with Betadine and covered with a Kerlix soaked in Betadine. This was held in place with an Ioban drape. This was accomplished after draping of the extremity. After the universal timeout, in which it was verified that the patient continued to get IV antibiotic and it was the right lower extremity that was to be removed, the procedure commenced. A marking pen was used to sketch a relatively short anterior and a long posterior flap. The incision was now made anteriorly from the vicinity of the medial tibia to the lateral fibula. The uppermost portions of the flap, previously marked were now incised. Dissection proceeded through the investing fascia and the muscular tissues down to the interosseous membrane. The dissection was done with scalpel and with cautery as indicated. Hemostasis was obtained using using cautery were indicated the anterior tibial group of vessels were encountered and doubly clamped divided and suture ligated with 2-0 PDS suture. Encounter nerves were placed on traction and cut so as to allow retraction. This pertains of the entirety of the procedure including the peroneal, tibial and sural nerves. The periosteum of the tibia was now incised circumferentially and raised a good to cm above the level of the skin amputation. The soft tissues were protected with moist laps and a electric saw used to incise the tibia describing an oblique angle superiorly so as to reduce the anterior edge of the tibia and then straight posteriorly. It was rasped to smoothness. The fibula was now approached similarly. It was decided because of this large limb to transect the fibula initially. The periosteum was incised incised circumferentially and raised using a periosteal elevator. The fibula was transected using a electric saw. This allowed access to the posterior group of muscles which are transected including the soleus. The peroneal and the posterior tibial group of vessels were encountered sequentially. Each was doubly clamped and divided and suture ligated with 2-0 PDS. The nerves when encountered were anesthetized with dilute lidocaine and bupivacaine. Dissection now proceeded inferiorly and the skin flap was now completed. The specimen was thus entirely removed and submitted for pathology. A good portion of time was not taken in obtaining meticulous hemostasis. This was done using hemostats and sutures of 3-0 and 2-0 PDS. Smaller bleeders were controlled with cautery. Having controlled the bleeding in the posterior flap, the fibula was now further transected after raising the periosteum above the level of the tibia. Once again the wound was carefully inspected irrigated, with antibiotic containing solution and careful hemostasis checked for and assured. Having done so the wound was now closed in an osteo-myoplastic fashion. A 15 Tunis[place] Jamal drain was inserted through a separate incision in the medial aspect of the thigh extending down into the incision. This was anchored with Steri-Strips. He was placed on suction. This drain was placed because of the extreme edema with fluid with relief oozing from the tissues. The hope is to remove this within the first 24-48 hours. First the periosteum over the tibia was approximated to the investing fascia of the posterior flap. This was done at the tibia and then the fascial approximation continued to the lateral and medial aspects of the incision. This was done with interrupted sutures of 2-0 PDS the skin was now approximated with sarah in a tension-free fashion. Acticpte, held in place with Steri-Strips, was now applied to the wound followed by a VAC. The VAC was now applied to suction. Once this was achieved a posterior plaster splint was now made and protected with at least 8 layers of Webril. It was applied over the stump and to just above the knee and posteriorly quite long. It was held in place with a layer of Kerlix and then a layer of Roger wraps. The splint was further anchored using tape. The procedure was now concluded. Copies dictated operative report to Dr. Chely Nobles MD.
[2018-01-26] MEDS: MIDAZOLAM 2 MG/2 ML INJ ONE ×2 (20:32→20:41)
[2018-01-26] MEDS ORDERED: DEXTROSE 40% GEL 15 GM TUBE PO PRN (21:17)
[2018-01-26] MEDS ORDERED: DEXTROSE 40% GEL 15 GM TUBE X 2 PO PRN (21:17)
[2018-01-26] MEDS ORDERED: DEXTROSE 50%-WATER SYRINGE 12.5 GM/25 ML DOSE IV PRN (21:17)
[2018-01-26] MEDS ORDERED: GLUCAGON,HUMAN RECOMB 1 MG INJ IM PRN (21:17)
[2018-01-26] MEDS ORDERED: DEXTROSE 50%-WATER SYRINGE 25 GM/50 ML DOSE IV PRN (21:17)
[2018-01-26] MEDS ORDERED: INSULIN LISPRO 100 UNIT/ML 3 ML VIAL SUBCUT PRN (21:19)
[2018-01-27] MEDS: MORPHINE SULFATE 60 MG/60 ML RTUINJ IV PRN (00:25)
--- NOTE | 2018-01-27 00:59 | OPERATIVE REPORT E ---
Operative Report NAME: RUTH WOOD : 1975 AGE: 43Y DATE OF SURGERY: 01/26/2018 ROOM: 413 PREOPERATIVE DIAGNOSIS: POOR VEINS FOR INTRAVENOUS ACCESS. POSTOPERATIVE DIAGNOSIS: POOR VEINS FOR INTRAVENOUS ACCESS. OPERATION: Placement of left internal jugular vein triple lumen catheter. SURGEON: JESUS WHITEHEAD M.D. ANESTHESIA: Local. INDICATION FOR PROCEDURE: This is a 43-year-old female who just had surgery today and needed IV access. Multiple attempts were done to put a peripheral vein but unsuccessful. DESCRIPTION OF PROCEDURE: With the use of the ultrasound, the right internal jugular vein was then identified. Next, the marker was placed along the path of the internal jugular vein. Next, the right neck was then prepped and draped in the usual sterile fashion. Local anesthesia infiltrated along the path of the right internal jugular vein. An attempt was done to puncture the internal jugular vein but it was unsuccessful. Next, with the use of the ultrasound, I was still not able to get the vein. I inadvertently punctured the artery and pulled back the needle right away and applied pressure for a couple of minutes. Following this, the left side of the neck was then prepped and draped in the usual sterile fashion. With the use of the ultrasound, the vein was noted to be much bigger than the right side. Local anesthesia infiltrated along the path of the internal jugular vein. The internal jugular vein was then punctured quite easily and a guidewire passed through the needle towards the area of the superior vena cava. The needle was removed and the puncture site enlarged. A triple lumen catheter was then threaded through the guidewire to a distance of about 17 cm. Three ports aspirated blood easily and instilled saline easily. The catheter was anchored to the skin with 3-0 silk and a Biopatch placed over the insertion site. A transparent dressing was then placed over the catheter. A chest x-ray was subsequently done which showed there is no pneumothorax and the catheter tip appears to be right at the junction of the superior vena cava and the right atrium. This was unofficial reading. The patient tolerated the procedure well. There is no pneumothorax. DICTATING PHYSICIAN: JESUS WHITEHEAD M.D. [id number] PHY#: [id number] ID: [id number] JOB#: [id number] ACCT: [id number] cc:JESUS WHITEHEAD M.D. >
--- NOTE | 2018-01-27 01:15 | RADIOLOGY REPORT (SQ) ---
EXAM DESCRIPTION: CHEST SINGLE VIEW CLINICAL HISTORY: 43 years Female, confirm placement of central line COMPARISON: 2.3.18 NUMBER OF VIEWS/TECHNIQUE: 1/AP LIMITATIONS: None. FINDINGS: Normal lung volume, clear parenchyma, normal cardiac silhouette, and intact bony thorax. Jugular central line tip at the cavoatrial junction. IMPRESSION: No acute cardiopulmonary findings.
[2018-01-27] MEDS ORDERED: DEXTROSE 40% GEL 15 GM TUBE PO PRN ×2 (02:22)
[2018-01-27] MEDS ORDERED: DEXTROSE 50%-WATER 25 GM/50 ML DISP.SYRIN IV PRN ×2 (02:22)
[2018-01-27] MEDS ORDERED: GLUCAGON,HUMAN RECOMB 1 MG INJ IM PRN (02:22)
[2018-01-27] MEDS ORDERED: ENALAPRILAT DIHYDRATE INJ/PF 1.25 MG/1 ML SDV IV PRN (02:24)
[2018-01-27] MEDS: HYDRALAZINE HCL INJ/PF 20 MG/1 ML SDV IV PRN ×2 (04:03→16:31)
[2018-01-27 05:57] LABS: HEMATOCRIT 26.3 % (36.0-47.0); HEMOGLOBIN 8.8 g/dL (12.0-15.5); MEAN CORPUSCULAR HEMOGLOBIN 27.6 pg (27.0-33.4); MEAN CORPUSCULAR HGB CONC 33.2 g/dL (32.0-36.0); MEAN CORPUSCULAR VOLUME 83 fl (80-97); PLATELET COUNT 293 10^3/uL (150-450); RED BLOOD COUNT 3.18 10^6/uL (3.72-5.28); RED CELL DISTRIBUTION WIDTH 13.7 % (11.5-14.0); WHITE BLOOD COUNT 10.6 10^3/uL (4.0-10.5)
[2018-01-27 06:19] LABS: ANION GAP 11 (5-19); BLOOD UREA NITROGEN 18 mg/dL (7-20); CALCIUM 8.7 mg/dL (8.4-10.2); CARBON DIOXIDE 26 mmol/L (22-30); CHLORIDE 102 mmol/L (98-107); GLUCOSE 173 mg/dL (75-110); POTASSIUM 4.4 mmol/L (3.6-5.0)
--- NOTE | 2018-01-27 07:27 | EKG REPORT ---
SEVERITY:- BORDERLINE ECG - SINUS RHYTHM BORDERLINE R WAVE PROGRESSION, ANTERIOR LEADS : Confirmed by: Romain Babcock MD 27-Jan-2018 07:27:21
[2018-01-27] MEDS: PREGABALIN 75 MG CAPSULE PO SCH ×2 (08:56→17:47)
[2018-01-27] MEDS ORDERED: METOPROLOL TARTRATE PF/INJ 5 MG/5 ML SDV IV ONE (09:30)
[2018-01-27] MEDS: FERROUS SULFATE 325 MG TABLET PO SCH ×3 (09:36→17:47)
[2018-01-27] MEDS: ENOXAPARIN SODIUM INJ 30 MG/0.3 ML DISP.SYRIN SUBCUT SCH (09:36)
[2018-01-27] MEDS ORDERED: (PENDING PHARMACY ID) (Lisinopril/Hydrochlorothiazide [Zestoretic 20-25 Mg Tablet] 1 TAB) PO SCH (10:00)
[2018-01-27] MEDS ORDERED: FUROSEMIDE 20 MG TABLET PO PRN (10:17)
[2018-01-27] MEDS: LISINOPRIL 10 MG TABLET PO SCH (11:15)
[2018-01-27] MEDS: AMLODIPINE BESYLATE 5 MG TABLET PO SCH (11:15)
[2018-01-27] MEDS: FLUTICASONE/SALMETEROL DISKUS 500-50 MCG/DOSE IH SCH ×2 (11:16→17:48)
[2018-01-27] MEDS: HYDROCHLOROTHIAZIDE 25 MG TABLET PO SCH (11:16)
[2018-01-27] MEDS ORDERED: LANSOPRAZOLE 15 MG TAB.RAP.DR PO ONE (11:30)
[2018-01-27] MEDS: MAG HYDROX/AL HYDROX/SIMETH SUSP 30 ML UDCUP PO SCH ×2 (12:57→17:48)
[2018-01-27] MEDS ORDERED: OXYCODONE-ACETAMINOPHEN 5-325 MG TABLET PO ONE (13:00)
[2018-01-27] MEDS ORDERED: PREGABALIN 75 MG CAPSULE PO SCH (14:00)
--- NOTE | 2018-01-27 17:15 | PDOC CONSULTATION ---
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 The hospitalist team has been consulted for diabetes management and blood pressure control. The patient is seen on morning rounds with family members present. She appears to be in no acute distress however is in obvious discomfort following her surgical procedure. She is currently maintaining oxygen saturations on room air. Other than her leg pain she has no questions or concerns at this time. Past Medical History Cardiac Medical History: Reports: Hyperlipidema, Hypertension Denies: Coronary Artery Disease, Myocardial Infarction Pulmonary Medical History: Reports: Asthma, Sleep Apnea - She wears CPAP at home Denies: Bronchitis, Chronic Obstructive Pulmonary Disease (COPD), Pneumonia Neurological Medical History: Denies: Seizures Endocrine Medical History: Reports: Diabetes Mellitus Type 2 Musculoskeltal Medical History: Denies: Arthritis, Fibromyalgia Psychiatric Medical History: Denies: Depression Hematology: Reports: Anemia Denies: Bleeding Tendencies Past Surgical History Past Surgical History: Reports: Section - Twice, Orthopedic Surgery - Heel spur surgery, bilateral carpal tunnel surgery, Other - 2 c section, left bone spur removal, left foot surg, R eye surg as child Social History Information Source: Patient Smoking Status: Former Smoker Frequency of Alcohol Use: Rare Hx Recreational Drug Use: No Drugs: None Hx Prescription Drug Abuse: No Family History Family History: CAD, DM, Hyperlipidemia, Hypertension Parental Family History Reviewed: Yes Children Family History Reviewed: Yes Sibling(s) Family History Reviewed.: Yes Medication/Allergy Home Medications: Aspirin [Adult Low Dose Aspirin EC] 81 mg PO DAILY 11/20/17 Cetirizine HCl [Zyrtec 10 mg Tablet] 10 mg PO DAILY 11/20/17 Ferrous Sulfate [Feosol 325 mg Tablet] 325 mg PO TID 11/20/17 Fluticasone/Salmeterol [Advair 500-50 Diskus 14 Dose/Diskus] 1 puff IH BID 11/20 Furosemide [Lasix 20 mg Tablet] 20 mg PO DAILYP PRN 11/20/17 Insulin Detemir [Levemir Flextouch] 70 units SQ DAILY 11/20/17 Lisinopril/Hydrochlorothiazide [Zestoretic 20-25 mg Tablet] 1 tab PO DAILY 11/20 Omeprazole 20 mg PO DAILY 11/20/17 Pregabalin [Lyrica] 150 mg PO Q8 11/20/17 Simvastatin [Zocor 20 mg Tablet] 20 mg PO QHS 11/20/17 Ascorbic Acid [Vitamin C 500 mg Tablet] 500 mg PO BID tablet 11/24/17 Multivitamin [Tab-A-Alana (Multiple Vitamin) Tablet] 1 tab PO DAILY tablet 11/24 Amlodipine Besylate [Norvasc 5 mg Tablet] 5 mg PO DAILY 01/26/18 Dulaglutide [Trulicity] 1.5 mg SQ TH@1000 01/26/18 Ergocalciferol (Vitamin D2) [Drisdol 50,000 Unit (1.25MG) Capsule] 50,000 unit PO .QWEEKLY 01/26/18 Insulin Lispro [Humalog Insulin 100 Unit/1 ml 3 ml Vial] 0 unit SUBCUT .SLD SCALE 01/26/18 Lidocaine HCl [Xylocaine 2% Jelly 30 ml Tube] 30 ml TOP .DRESSING CHANGE Oxycodone HCl [Oxy-Ir 5 mg Tablet] 15 mg PO Q6HP PRN 01/26/18 Allergies/Adverse Reactions: No Known Allergies Allergy (Verified 01/26/18 11:54) Physical Exam Vital Signs: Temp Pulse Resp BP Pulse Ox 98.3 F 108 H 20 149/82 H 95 01/27/18 12:45 01/27/18 12:45 01/27/18 15:00 01/27/18 12:45 01/27/18 15:00 Intake & Output 01/26/18 01/27/18 01/28/18 06:59 06:59 06:59 Intake Total 2800 120 Output Total 1980 Balance 820 120 Weight 134.26 kg General appearance: PRESENT: no acute distress, morbidly obese, well-developed, well-nourished, other - Discomfort secondary to surgical pain Head exam: PRESENT: atraumatic, normocephalic Eye exam: PRESENT: conjunctiva pink, EOMI, PERRLA. ABSENT: scleral icterus Ear exam: PRESENT: normal external ear exam Mouth exam: PRESENT: moist, tongue midline Neck exam: ABSENT: carotid bruit, JVD, lymphadenopathy, thyromegaly Respiratory exam: PRESENT: clear to auscultation mary, symmetrical, unlabored. ABSENT: rales, rhonchi, wheezes Cardiovascular exam: PRESENT: RRR, +S1, +S2. ABSENT: diastolic murmur, rubs, systolic murmur Pulses: PRESENT: normal dorsalis pedis pul Vascular exam: PRESENT: normal capillary refill GI/Abdominal exam: PRESENT: normal bowel sounds, soft. ABSENT: distended, guarding, mass, organolmegaly, rebound, tenderness Rectal exam: PRESENT: deferred Extremities exam: PRESENT: full ROM, other - Left BKA not directly visualized; new surgical dressing is intact.. ABSENT: calf tenderness, clubbing, pedal edema Neurological exam: PRESENT: alert, awake, oriented to person, oriented to place , oriented to time, oriented to situation, CN II-XII grossly intact. ABSENT: motor sensory deficit Psychiatric exam: PRESENT: agitated, appropriate affect, normal mood. ABSENT: homicidal ideation, suicidal ideation Skin exam: PRESENT: dry, intact, warm. ABSENT: cyanosis, rash Results Laboratory Results: 01/27/18 05:40 01/27/18 05:40 01/27/18 01/27/18 05:40 05:40 WBC 10.6 H RBC 3.18 L Hgb 8.8 L Hct 26.3 L MCV 83 MCH 27.6 MCHC 33.2 RDW 13.7 Plt Count 293 Sodium 139.0 Potassium 4.4 Chloride 102 Carbon Dioxide 26 Anion Gap 11 BUN 18 Creatinine 0.99 Est GFR ( Amer) > 60 Est GFR (Non-Af Amer) > 60 Glucose 173 H Calcium 8.7 Impressions: Chest X-Ray 01/27/18 00:00 IMPRESSION: No acute cardiopulmonary findings. Assessment & Plan - Diagnosis (1) Diabetes Qualifiers: Diabetes mellitus fpc insulin use: with fpc use Diabetes mellitus complication status: with unspecified complications Is this a current diagnosis for this admission?: Yes Plan: She is placed on a consistent carb diet. Will obtain Accu-Cheks before meals and at bedtime. Humalog for sliding scale coverage; will resume her long-acting Levemir once tolerating p.o. I have consulted the registered dietitian and special educator. (2) CKD (chronic kidney disease) Qualifiers: Chronic kidney disease stage: stage 3 (moderate) Qualified Code(s): N18.3 - Chronic kidney disease, stage 3 (moderate) Is this a current diagnosis for this admission?: Yes Plan: Secondary to uncontrolled diabetes and hypertension. Creatinine is currently 0.99. She is receiving maintenance IV fluids. We will avoid nephrotoxic medications. We will continue to monitor with daily chemistries. (3) Hypertension Is this a current diagnosis for this admission?: Yes Plan: The patient's home medications amlodipine and lisinopril are continued. IV hydrazine and Vasotec are available as needed for BP control. (4) Infection of amputation stump of left lower extremity Is this a current diagnosis for this admission?: Yes Plan: Primary plan per surgery. We will defer any necessary antibiotics and pain management to the surgical team. - Time Time Spent: 30 to 50 Minutes Medications reviewed and adjusted accordingly: Yes
[2018-01-27] MEDS: INSULIN LISPRO 100 UNIT/ML 3 ML VIAL SUBCUT PRN (19:18)
[2018-01-27] MEDS: OXYCODONE-ACETAMINOPHEN 5-325 MG TABLET PO SCH (21:33)
[2018-01-27] MEDS: SIMVASTATIN 10 MG TABLET PO SCH (21:33)
[2018-01-28] MEDS: HYDRALAZINE HCL INJ/PF 20 MG/1 ML SDV IV PRN (00:38)
[2018-01-28] MEDS: PREGABALIN 75 MG CAPSULE PO SCH ×3 (00:38→17:09)
[2018-01-28] MEDS: MAG HYDROX/AL HYDROX/SIMETH SUSP 30 ML UDCUP PO SCH ×5 (00:39→23:35)
[2018-01-28] MEDS: OXYCODONE-ACETAMINOPHEN 5-325 MG TABLET PO SCH ×3 (05:28→21:44)
[2018-01-28] MEDS: LANSOPRAZOLE 15 MG TAB.RAP.DR PO SCH (05:28)
[2018-01-28 05:50] LABS: HEMATOCRIT 25.5 % (36.0-47.0); HEMOGLOBIN 8.6 g/dL (12.0-15.5); MEAN CORPUSCULAR HEMOGLOBIN 27.7 pg (27.0-33.4); MEAN CORPUSCULAR HGB CONC 33.6 g/dL (32.0-36.0); MEAN CORPUSCULAR VOLUME 82 fl (80-97); PLATELET COUNT 260 10^3/uL (150-450); RED BLOOD COUNT 3.11 10^6/uL (3.72-5.28); RED CELL DISTRIBUTION WIDTH 13.7 % (11.5-14.0); WHITE BLOOD COUNT 9.7 10^3/uL (4.0-10.5)
[2018-01-28] MEDS: MORPHINE SULFATE 60 MG/60 ML RTUINJ IV PRN (05:57)
[2018-01-28 06:13] LABS: ANION GAP 9 (5-19); BLOOD UREA NITROGEN 13 mg/dL (7-20); CALCIUM 8.7 mg/dL (8.4-10.2); CARBON DIOXIDE 28 mmol/L (22-30); CHLORIDE 99 mmol/L (98-107); GLUCOSE 193 mg/dL (75-110); POTASSIUM 4.3 mmol/L (3.6-5.0)
[2018-01-28] MEDS: AMLODIPINE BESYLATE 5 MG TABLET PO SCH (09:19)
[2018-01-28] MEDS: ENOXAPARIN SODIUM INJ 30 MG/0.3 ML DISP.SYRIN SUBCUT SCH (09:20)
[2018-01-28] MEDS: FERROUS SULFATE 325 MG TABLET PO SCH ×3 (09:20→17:09)
[2018-01-28] MEDS: HYDROCHLOROTHIAZIDE 25 MG TABLET PO SCH (09:20)
[2018-01-28] MEDS: LISINOPRIL 10 MG TABLET PO SCH (09:20)
[2018-01-28] MEDS: CETIRIZINE 10 MG TABLET PO SCH (09:21)
[2018-01-28] MEDS: FLUTICASONE/SALMETEROL DISKUS 500-50 MCG/DOSE IH SCH ×2 (09:21→17:04)
[2018-01-28] MEDS: INSULIN DETEMIR 100 UNIT/ML 3 ML PEN SUBCUT SCH (10:57)
--- NOTE | 2018-01-28 12:36 | PDOC PROGRESS REPORT ---
Subjective Progress Note for:: 01/28/18 Subjective:: The patient is postoperative day 2 after a left below-knee amputation revision of a guillotine amputation. Her pain control is much improved and she expresses satisfaction with her care so far. Reason For Visit: T87.44 INFECTION OF AMPUTATION STUMP, LEFT LOWER E Physical Exam Vital Signs: Temp Pulse Resp BP Pulse Ox 98.1 F 115 H 18 152/82 H 99 01/28/18 08:00 01/28/18 08:00 01/28/18 08:00 01/28/18 08:00 01/28/18 08:00 Intake & Output 01/27/18 01/28/18 01/29/18 06:59 06:59 06:59 Intake Total 2800 1772 Output Total 1979 2019 Balance 820 -248 Weight 134.26 kg 144.5 kg Additional comments: Constitutional: Well-developed well-nourished -[place] lady, morbidly obese body habitus. No apparent acute distress. Eyes: Mucous membranes pink and moist, pupils equal and reactive to light. Conjunctiva normal. Cornea normal. Neck: Left-sided central line in place. Respiratory: Normal respiratory effort. Psychiatric: Judgment, memory, insight seem normal. Mood is pleasant and appropriate. Lower extremities show normal range of movement on the right. The left has the dressing including a splint and vac from recent amputation. Results Laboratory Results: 01/28/18 05:30 01/28/18 05:30 01/28/18 01/28/18 05:30 05:30 WBC 9.7 RBC 3.11 L Hgb 8.6 L Hct 25.5 L MCV 82 MCH 27.7 MCHC 33.6 RDW 13.7 Plt Count 260 Sodium 136.0 L Potassium 4.3 Chloride 99 Carbon Dioxide 28 Anion Gap 9 BUN 13 Creatinine 0.87 Est GFR ( Amer) > 60 Est GFR (Non-Af Amer) > 60 Glucose 193 H Calcium 8.7 Impressions: Chest X-Ray 01/27/18 00:00 IMPRESSION: No acute cardiopulmonary findings. Assessment & Plan - Diagnosis (1) Below knee amputation status Qualifiers: Laterality: left Qualified Code(s): Z89.512 - Acquired absence of left leg below knee Is this a current diagnosis for this admission?: Yes Plan: Pain control seems adequate. The closed suction drain was removed on the with minimal serosanguineous drainage from it only. The VAC on the wound remains in place. The patient will need 3-5 days of hospitalization for optimal pain control and to secure the optimal course for wound healing. This was a particularly difficult amputation because of the presence of the guillotine amputation which limited the length of the below knee and also because of edema and also because of morbid obesity. The patient also has quite severe anemia starting at a hemoglobin of 10 today down to about 8.3. (3) Hypertension Is this a current diagnosis for this admission?: Yes Plan: Hypertension seems better controlled and the involvement of the hospitalist team is much appreciated. (4) Anemia Qualifiers: Anemia type: iron deficiency Iron deficiency anemia type: inadequate dietary iron intake Qualified Code(s): D50.8 - Other iron deficiency anemias Is this a current diagnosis for this admission?: Yes Plan: Some of the drop in hemoglobin is a consequence of the surgery. She has chronic anemia and is on iron. (5) CKD (chronic kidney disease) Qualifiers: Chronic kidney disease stage: stage 3 (moderate) Qualified Code(s): N18.3 - Chronic kidney disease, stage 3 (moderate) Is this a current diagnosis for this admission?: Yes (6) Diabetes mellitus type 1.5 Is this a current diagnosis for this admission?: Yes Plan: Diabetic control seems to be reasonable. (7) Guillain Velazquez syndrome Is this a current diagnosis for this admission?: Yes (8) Neuropathy associated with endocrine disorder Is this a current diagnosis for this admission?: Yes
[2018-01-28] MEDS: INSULIN LISPRO 100 UNIT/ML 3 ML VIAL SUBCUT PRN ×2 (13:22→18:30)
--- NOTE | 2018-01-28 15:02 | PDOC PROGRESS REPORT ---
Subjective Progress Note for:: 01/28/18 Subjective:: The patient is a 43-year-old female with past medical history of diabetes, hypertension, peripheral vascular disease, chronic kidney disease, morbid obesity who was admitted by the surgical team for revision of a nonhealing below the knee amputation. Hospitalist team has been consulted for medical management of diabetes and blood pressure. Patient is seen on rounds, she is found sitting upright in the recliner on room air. She appears to be much more comfortable today and states that her pain is well controlled. She denies headache, dizziness, fever, chills, chest pain, palpitations, dyspnea , abdominal pain, nausea vomiting diarrhea. She does express interest in meeting with our registered pharmacist and critical care educator. She has a friend bringing in her Trulicity and requests to take her home medication. Reason For Visit: T87.44 INFECTION OF AMPUTATION STUMP, LEFT LOWER E Physical Exam Vital Signs: Temp Pulse Resp BP Pulse Ox 98.8 F 109 H 18 142/75 H 99 01/28/18 11:20 01/28/18 11:20 01/28/18 11:20 01/28/18 11:20 01/28/18 11:20 Intake & Output 01/27/18 01/28/18 01/29/18 06:59 06:59 06:59 Intake Total 2800 1772 Output Total 1980 2020 Balance 820 -248 Weight 134.26 kg 144.5 kg General appearance: PRESENT: no acute distress, cooperative, morbidly obese, well-developed, well-nourished Head exam: PRESENT: atraumatic, normocephalic Eye exam: PRESENT: conjunctiva pink, EOMI, PERRLA. ABSENT: scleral icterus Ear exam: PRESENT: normal external ear exam Mouth exam: PRESENT: moist, tongue midline Neck exam: ABSENT: carotid bruit, JVD, lymphadenopathy, thyromegaly Respiratory exam: PRESENT: clear to auscultation mary, symmetrical, unlabored. ABSENT: rales, rhonchi, wheezes Cardiovascular exam: PRESENT: RRR, +S1, +S2, tachycardia. ABSENT: diastolic murmur, rubs, systolic murmur Vascular exam: PRESENT: normal capillary refill GI/Abdominal exam: PRESENT: normal bowel sounds, soft. ABSENT: distended, guarding, mass, organolmegaly, rebound, tenderness Rectal exam: PRESENT: deferred Extremities exam: PRESENT: full ROM, other - Recent revision of left leg amputation; surgical site not directly visualized.. ABSENT: calf tenderness, clubbing, pedal edema Neurological exam: PRESENT: alert, awake, oriented to person, oriented to place , oriented to time, oriented to situation, CN II-XII grossly intact. ABSENT: motor sensory deficit Psychiatric exam: PRESENT: appropriate affect, normal mood. ABSENT: homicidal ideation, suicidal ideation Skin exam: PRESENT: dry, warm. ABSENT: cyanosis, intact - L BKA; wound vac in place, rash Results Laboratory Results: 01/28/18 05:30 01/28/18 05:30 01/28/18 01/28/18 05:30 05:30 WBC 9.7 RBC 3.11 L Hgb 8.6 L Hct 25.5 L MCV 82 MCH 27.7 MCHC 33.6 RDW 13.7 Plt Count 260 Sodium 136.0 L Potassium 4.3 Chloride 99 Carbon Dioxide 28 Anion Gap 9 BUN 13 Creatinine 0.87 Est GFR ( Amer) > 60 Est GFR (Non-Af Amer) > 60 Glucose 193 H Calcium 8.7 Impressions: Chest X-Ray 01/27/18 00:00 IMPRESSION: No acute cardiopulmonary findings. 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 Will obtain Accu-Cheks before meals and at bedtime with Humalog for sliding scale coverage. As the patient is now tolerating a regular diet and eating 100% of meals, I have started Levemir 10 units daily. Anticipating need to increase dose as the patient was on 70 units daily at home. I have consulted the registered dietitian and critical care educator. The patient may take her home medication, Trulicity 1.5 mg SQ, as it is due today. (2) CKD (chronic kidney disease) Qualifiers: Chronic kidney disease stage: stage 3 (moderate) Qualified Code(s): N18.3 - Chronic kidney disease, stage 3 (moderate) Is this a current diagnosis for this admission?: Yes Plan: Secondary to uncontrolled diabetes and hypertension. Creatinine is currently 0.99. We will avoid nephrotoxic medications. We will continue to monitor with daily chemistries. (3) Hypertension Is this a current diagnosis for this admission?: Yes Plan: Blood pressures are improved today: currently 142/75 Continue amlodipine and lisinopril. IV hydrazine and Vasotec are available as needed for BP control. (4) Infection of amputation stump of left lower extremity Is this a current diagnosis for this admission?: Yes Plan: Primary plan per surgery. We will defer any necessary antibiotics and pain management to the surgical team. (5) Tachycardia Is this a current diagnosis for this admission?: Yes Plan: Heart rate currently 110. Likely secondary to postoperative pain. However, the patient's hemoglobin has dropped from 10.3 to 8.6 following surgery. The patient is currently on cardiac telemetry. We will also monitor hemoglobin for need to transfuse. (6) Anemia Qualifiers: Anemia type: iron deficiency Iron deficiency anemia type: inadequate dietary iron intake Qualified Code(s): D50.8 - Other iron deficiency anemias Is this a current diagnosis for this admission?: Yes Plan: Acute on chronic anemia in setting of CKD. Hgb decreased to 8.6 following surgery. She is tachycardic, however, this may be related to pain. No evidence of ongoing bleeding at this time. Will monitor Hgb and transfuse as necessary. Continue iron supplementation. - Time Time Spent with patient: 15-24 minutes Medications reviewed and adjusted accordingly: Yes
[2018-01-28] MEDS: SIMVASTATIN 10 MG TABLET PO SCH (21:44)
[2018-01-29] MEDS: PREGABALIN 75 MG CAPSULE PO SCH ×3 (01:42→18:20)
[2018-01-29] MEDS: OXYCODONE-ACETAMINOPHEN 5-325 MG TABLET PO SCH ×3 (05:52→21:13)
[2018-01-29] MEDS: LANSOPRAZOLE 15 MG TAB.RAP.DR PO SCH (05:52)
[2018-01-29] MEDS: MAG HYDROX/AL HYDROX/SIMETH SUSP 30 ML UDCUP PO SCH ×4 (06:00→23:05)
[2018-01-29 06:25] LABS: HEMATOCRIT 22.8 % (36.0-47.0); MEAN CORPUSCULAR HEMOGLOBIN 28.1 pg (27.0-33.4); MEAN CORPUSCULAR HGB CONC 34.2 g/dL (32.0-36.0); MEAN CORPUSCULAR VOLUME 82 fl (80-97); PLATELET COUNT 240 10^3/uL (150-450); RED BLOOD COUNT 2.77 10^6/uL (3.72-5.28); RED CELL DISTRIBUTION WIDTH 13.6 % (11.5-14.0); WHITE BLOOD COUNT 8.6 10^3/uL (4.0-10.5)
[2018-01-29 06:28] LABS: ANION GAP 8 (5-19); BLOOD UREA NITROGEN 13 mg/dL (7-20); CALCIUM 8.6 mg/dL (8.4-10.2); CARBON DIOXIDE 30 mmol/L (22-30); CHLORIDE 101 mmol/L (98-107); GLUCOSE 132 mg/dL (75-110); POTASSIUM 4.4 mmol/L (3.6-5.0)
[2018-01-29 06:37] LABS: HEMOGLOBIN 7.8 g/dL (12.0-15.5)
[2018-01-29] MEDS: FLUTICASONE/SALMETEROL DISKUS 500-50 MCG/DOSE IH SCH ×2 (10:05→18:24)
[2018-01-29] MEDS: LISINOPRIL 10 MG TABLET PO SCH (11:01)
[2018-01-29] MEDS: AMLODIPINE BESYLATE 5 MG TABLET PO SCH (11:02)
[2018-01-29] MEDS: FERROUS SULFATE 325 MG TABLET PO SCH ×3 (11:03→18:20)
[2018-01-29] MEDS: HYDROCHLOROTHIAZIDE 25 MG TABLET PO SCH (11:04)
[2018-01-29] MEDS: ENOXAPARIN SODIUM INJ 30 MG/0.3 ML DISP.SYRIN SUBCUT SCH (11:04)
[2018-01-29] MEDS: INSULIN DETEMIR 100 UNIT/ML 3 ML PEN SUBCUT SCH (11:05)
[2018-01-29] MEDS: CETIRIZINE 10 MG TABLET PO SCH (11:06)
[2018-01-29] MEDS ORDERED: METOPROLOL TARTRATE PF/INJ 5 MG/5 ML SDV IV PRN (12:35)
--- NOTE | 2018-01-29 13:35 | PDOC PROGRESS REPORT ---
Subjective Progress Note for:: 01/29/18 Subjective:: The patient complains of pain in the left leg today. Pain control not as good as before. Otherwise no dizziness or other complaints. Reason For Visit: T87.44 INFECTION OF AMPUTATION STUMP, LEFT LOWER E Physical Exam Vital Signs: Temp Pulse Resp BP Pulse Ox 98.9 F 103 H 16 144/78 H 100 01/29/18 12:18 01/29/18 12:18 01/29/18 12:18 01/29/18 12:18 01/29/18 12:18 Intake & Output 01/28/18 01/29/18 01/30/18 06:59 06:59 06:59 Intake Total 1772 1896 Output Total 2020 1800 Balance -248 96 Weight 144.5 kg Additional comments: Constitutional: Well-developed well-nourished -[place] lady, morbidly obese body habitus. No apparent acute distress. Eyes: Mucous membranes pink and moist, pupils equal and reactive to light. Conjunctiva normal. Cornea normal. Respirator: Normal respiratory effort. Psychiatric: Judgment, memory, insight seem normal. Mood is pleasant and appropriate. Mildly distressed, appropriate for pain. Right lower extremity show normal range of movement. Left below-knee in splint , mild flexion. VAC in place and functioning. Results Laboratory Results: 01/29/18 06:00 01/29/18 06:00 01/29/18 01/29/18 06:00 06:00 WBC 8.6 RBC 2.77 L Hgb 7.8 L Hct 22.8 L MCV 82 MCH 28.1 MCHC 34.2 RDW 13.6 Plt Count 240 Sodium 139.0 Potassium 4.4 Chloride 101 Carbon Dioxide 30 Anion Gap 8 BUN 13 Creatinine 0.98 Est GFR ( Amer) > 60 Est GFR (Non-Af Amer) > 60 Glucose 132 H Calcium 8.6 Impressions: Chest X-Ray 01/27/18 00:00 IMPRESSION: No acute cardiopulmonary findings. Assessment & Plan - Diagnosis (1) Below knee amputation status Qualifiers: Laterality: left Qualified Code(s): Z89.512 - Acquired absence of left leg below knee Is this a current diagnosis for this admission?: Yes Plan: Today with increase in pain some concern for infection, although the white blood cell count is within normal limits. The patient did have poly daniel in her stump wound preoperatively and usual precautions were taken including quite aggressive skin skin cleansing. Given her comorbid status I believe antibiotic appropriate for coverage is needed and we will start her on Zosyn 3 times daily IV. (3) Hypertension Is this a current diagnosis for this admission?: Yes (4) Anemia Qualifiers: Anemia type: iron deficiency Iron deficiency anemia type: inadequate dietary iron intake Qualified Code(s): D50.8 - Other iron deficiency anemias Is this a current diagnosis for this admission?: Yes (5) CKD (chronic kidney disease) Qualifiers: Chronic kidney disease stage: stage 3 (moderate) Qualified Code(s): N18.3 - Chronic kidney disease, stage 3 (moderate) Is this a current diagnosis for this admission?: Yes (6) Diabetes mellitus type 1.5 Is this a current diagnosis for this admission?: Yes (7) Guillain Velazquez syndrome Is this a current diagnosis for this admission?: Yes (8) Neuropathy associated with endocrine disorder Is this a current diagnosis for this admission?: Yes (9) Blood loss anemia Is this a current diagnosis for this admission?: Yes Plan: From 10.8 preoperatively, 7.3 today. She is asymptomatic and her pulse rate is 101 which is lower than. She tells me that she has started her menses also. With findings I believe it is appropriate to continue monitoring. She is on iron and hopefully she should be able to capture. All prior hemoglobin. Otherwise.
[2018-01-29 13:59] LABS: HEMATOCRIT 26.2 % (36.0-47.0); HEMOGLOBIN 8.7 g/dL (12.0-15.5); MEAN CORPUSCULAR HEMOGLOBIN 27.7 pg (27.0-33.4); MEAN CORPUSCULAR HGB CONC 33.4 g/dL (32.0-36.0); MEAN CORPUSCULAR VOLUME 83 fl (80-97); PLATELET COUNT 290 10^3/uL (150-450); RED BLOOD COUNT 3.16 10^6/uL (3.72-5.28); RED CELL DISTRIBUTION WIDTH 13.6 % (11.5-14.0); WHITE BLOOD COUNT 9.5 10^3/uL (4.0-10.5)
[2018-01-29] MEDS ORDERED: PIPERACILLIN SODIUM/TAZOBACTAM 3.375 GM in NORMAL SALINE 100 ML IV SCH (14:00)
[2018-01-29] MEDS: KETOROLAC TROMETHAMINE 10 MG TABLET PO SCH ×2 (15:11→21:12)
[2018-01-29] MEDS: PIPERACILLIN SODIUM/TAZOBACTAM 3.375 GM in NORMAL SALINE 100 ML IV SCH ×2 (15:46→21:11)
--- NOTE | 2018-01-29 16:34 | PDOC PROGRESS REPORT ---
Subjective Progress Note for:: 01/29/18 Subjective:: The patient is a 43-year-old female with past medical history of diabetes, hypertension, peripheral vascular disease, chronic kidney disease, morbid obesity who was admitted by the surgical team for revision of a nonhealing below the knee amputation. Hospitalist team has been consulted for medical management of diabetes and blood pressure. Patient is seen on rounds, she is found resting in bed comfortably on room air. She apstates that her pain is well controlled at present and she has no new questions or concerns. She denies headache, dizziness, fever, chills, chest pain, palpitations, dyspnea , abdominal pain, nausea vomiting diarrhea. Reason For Visit: T87.44 INFECTION OF AMPUTATION STUMP, LEFT LOWER E Physical Exam Vital Signs: Temp Pulse Resp BP Pulse Ox 97.9 F 113 H 16 137/82 H 98 01/29/18 15:23 01/29/18 15:23 01/29/18 15:23 01/29/18 15:23 01/29/18 15:23 Intake & Output 01/28/18 01/29/18 01/30/18 06:59 06:59 06:59 Intake Total 1772 1896 Output Total 2020 1800 Balance -248 96 Weight 144.5 kg General appearance: PRESENT: no acute distress, morbidly obese, well-developed, well-nourished Head exam: PRESENT: atraumatic, normocephalic Eye exam: PRESENT: conjunctiva pink, EOMI, PERRLA. ABSENT: scleral icterus Ear exam: PRESENT: normal external ear exam Mouth exam: PRESENT: moist, tongue midline Neck exam: ABSENT: carotid bruit, JVD, lymphadenopathy, thyromegaly Respiratory exam: PRESENT: clear to auscultation mary, decreased breath sounds - Bibasilar; secondary to body habitus and poor inspiratory effort. Will watch closely., symmetrical, unlabored. ABSENT: rales, rhonchi, wheezes Cardiovascular exam: PRESENT: RRR, +S1, +S2, tachycardia. ABSENT: diastolic murmur, rubs, systolic murmur Pulses: PRESENT: normal dorsalis pedis pul Vascular exam: PRESENT: normal capillary refill GI/Abdominal exam: PRESENT: normal bowel sounds, soft. ABSENT: distended, guarding, mass, organolmegaly, rebound, tenderness Rectal exam: PRESENT: deferred Extremities exam: PRESENT: full ROM, other - Left BKA; wound VAC and Roger wrap in place. Surgical incision not directly visualized. No range noted in wound VAC canister.. ABSENT: calf tenderness, clubbing, pedal edema Neurological exam: PRESENT: alert, awake, oriented to person, oriented to place , oriented to time, oriented to situation, CN II-XII grossly intact. ABSENT: motor sensory deficit Psychiatric exam: PRESENT: appropriate affect, normal mood. ABSENT: homicidal ideation, suicidal ideation Skin exam: PRESENT: dry, intact, warm. ABSENT: cyanosis, rash Results Laboratory Results: 01/29/18 13:21 01/29/18 06:00 01/29/18 01/29/18 01/29/18 06:00 06:00 13:21 WBC 8.6 9.5 RBC 2.77 L 3.16 L Hgb 7.8 L 8.7 L Hct 22.8 L 26.2 L MCV 82 83 MCH 28.1 27.7 MCHC 34.2 33.4 RDW 13.6 13.6 Plt Count 240 290 Sodium 139.0 Potassium 4.4 Chloride 101 Carbon Dioxide 30 Anion Gap 8 BUN 13 Creatinine 0.98 Est GFR ( Amer) > 60 Est GFR (Non-Af Amer) > 60 Glucose 132 H Calcium 8.6 Blood Type Antibody Screen 01/29/18 13:21 WBC RBC Hgb Hct MCV MCH MCHC RDW Plt Count Sodium Potassium Chloride Carbon Dioxide Anion Gap BUN Creatinine Est GFR ( Amer) Est GFR (Non-Af Amer) Glucose Calcium Blood Type B POSITIVE Antibody Screen NEGATIVE Impressions: Chest X-Ray 01/27/18 00:00 IMPRESSION: No acute cardiopulmonary findings. Assessment & Plan - Diagnosis (1) Diabetes Qualifiers: Diabetes mellitus fdc insulin use: with intermediate manager use Diabetes mellitus complication status: with unspecified complications Is this a current diagnosis for this admission?: Yes Plan: She is placed on a consistent carb diet. Will obtain Accu-Cheks before meals and at bedtime with Humalog for sliding scale coverage. As the patient is now tolerating a regular diet and eating 100% of meals, I have started Levemir 10 units daily. Anticipating need to increase dose as the patient was on 70 units daily at home. I have consulted the registered dietitian and certified breastfeeding educator. (2) CKD (chronic kidney disease) Qualifiers: Chronic kidney disease stage: stage 3 (moderate) Qualified Code(s): N18.3 - Chronic kidney disease, stage 3 (moderate) Is this a current diagnosis for this admission?: Yes Plan: Secondary to uncontrolled diabetes and hypertension. Creatinine is stable at 0.98 We will avoid nephrotoxic medications. We will continue to monitor with daily chemistries. (3) Hypertension Is this a current diagnosis for this admission?: Yes Plan: Blood pressures are improved today: currently 137/82 Continue amlodipine and lisinopril. IV hydrazine and Vasotec are available as needed for BP control. (4) Tachycardia Is this a current diagnosis for this admission?: Yes Plan: Heart rate currently 110. Likely secondary to postoperative pain. However, the patient's hemoglobin has dropped from 10.3 to 7.8 and the surgeon has expressed concerns for early postoperative infection; both of which could be contributing to her elevated heart rate. The patient is currently on cardiac telemetry. We will continue to monitor and address the underlying cause. (5) Anemia Qualifiers: Anemia type: iron deficiency Iron deficiency anemia type: inadequate dietary iron intake Qualified Code(s): D50.8 - Other iron deficiency anemias Is this a current diagnosis for this admission?: Yes Plan: Acute on chronic anemia in setting of CKD. Hgb decreased to 7.8 following surgery. Repeat hemoglobin this afternoon is improved to 8.7. No evidence of ongoing bleeding at this time. The patient has been blood banded. Will monitor Hgb and transfuse as necessary. Continue iron supplementation. (6) Infection of amputation stump of left lower extremity Is this a current diagnosis for this admission?: Yes Plan: Primary plan per surgery. We will defer any necessary antibiotics and pain management to the surgical team. - Time Time Spent with patient: 15-24 minutes Medications reviewed and adjusted accordingly: Yes
[2018-01-29] MEDS ORDERED: VANCOMYCIN HCL 1,500 MG in DEXTROSE 5%-WATER 250 ML IV SCH (18:00)
[2018-01-29] MEDS: INSULIN LISPRO 100 UNIT/ML 3 ML VIAL SUBCUT PRN (18:20)
[2018-01-29] MEDS: SIMVASTATIN 10 MG TABLET PO SCH (21:12)
[2018-01-30] MEDS: PREGABALIN 75 MG CAPSULE PO SCH ×3 (02:11→17:37)
[2018-01-30] MEDS: KETOROLAC TROMETHAMINE 10 MG TABLET PO SCH ×3 (05:52→21:30)
[2018-01-30] MEDS: OXYCODONE-ACETAMINOPHEN 5-325 MG TABLET PO SCH ×3 (05:52→21:30)
[2018-01-30] MEDS: PIPERACILLIN SODIUM/TAZOBACTAM 3.375 GM in NORMAL SALINE 100 ML IV SCH ×3 (05:53→21:30)
[2018-01-30] MEDS: MAG HYDROX/AL HYDROX/SIMETH SUSP 30 ML UDCUP PO SCH ×4 (05:53→23:18)
[2018-01-30] MEDS: LANSOPRAZOLE 15 MG TAB.RAP.DR PO SCH (05:53)
[2018-01-30 06:42] LABS: ABSOLUTE BASOPHILS # (AUTO) 0.1 10^3/uL (0.0-0.2); ABSOLUTE EOSINOPHILS # (AUTO) 0.4 10^3/uL (0.0-0.6); ABSOLUTE LYMPHOCYTES (AUTO) 1.8 10^3/uL (0.5-4.7); ABSOLUTE MONOCYTES (AUTO) 0.7 10^3/uL (0.1-1.4); ABSOLUTE NEUT (AUTO) 5.5 10^3/uL (1.7-8.2); BASOPHILS % (AUTO) 0.6 % (0-2); EOSINOPHILS % (AUTO) 4.8 % (0-6); HEMATOCRIT 20.8 % (36.0-47.0); LYMPHOCYTES % (AUTO) 21.3 % (13-45); MEAN CORPUSCULAR HEMOGLOBIN 27.9 pg (27.0-33.4); MEAN CORPUSCULAR VOLUME 82 fl (80-97); MONOCYTES % (AUTO) 7.8 % (3-13); PLATELET COUNT 264 10^3/uL (150-450); RED BLOOD COUNT 2.53 10^6/uL (3.72-5.28); RED CELL DISTRIBUTION WIDTH 13.5 % (11.5-14.0); SEGMENTED NEUTROPHILS % (AUTO) 65.5 % (42-78); TOTAL CELLS COUNTED % (AUTO) 100 %; WHITE BLOOD COUNT 8.4 10^3/uL (4.0-10.5)
[2018-01-30 06:49] LABS: ANION GAP 5 (5-19); BLOOD UREA NITROGEN 22 mg/dL (7-20); CALCIUM 8.3 mg/dL (8.4-10.2); CARBON DIOXIDE 31 mmol/L (22-30); CHLORIDE 104 mmol/L (98-107); GLUCOSE 125 mg/dL (75-110); POTASSIUM 4.1 mmol/L (3.6-5.0); SODIUM 139.6 mmol/L (137-145)
[2018-01-30 06:59] LABS: HEMOGLOBIN 7.1 g/dL (12.0-15.5)
[2018-01-30] MEDS ORDERED: NORMAL SALINE 1000 ML 1,000 ML IV PRN (07:52)
[2018-01-30 08:39] LABS: MEAN CORPUSCULAR HEMOGLOBIN 27.2 pg (27.0-33.4); MEAN CORPUSCULAR HGB CONC 33.1 g/dL (32.0-36.0); MEAN CORPUSCULAR VOLUME 82 fl (80-97); PLATELET COUNT 261 10^3/uL (150-450); RED BLOOD COUNT 2.55 10^6/uL (3.72-5.28); RED CELL DISTRIBUTION WIDTH 13.3 % (11.5-14.0); WHITE BLOOD COUNT 7.5 10^3/uL (4.0-10.5)
[2018-01-30 08:44] LABS: HEMOGLOBIN 6.9 g/dL (12.0-15.5)
[2018-01-30] MEDS ORDERED: NORMAL SALINE 250 ML IV PRN ×2 (09:39)
[2018-01-30] MEDS: LISINOPRIL 10 MG TABLET PO SCH (09:48)
[2018-01-30] MEDS: AMLODIPINE BESYLATE 5 MG TABLET PO SCH (09:49)
[2018-01-30] MEDS: FERROUS SULFATE 325 MG TABLET PO SCH ×3 (09:50→17:37)
[2018-01-30] MEDS: HYDROCHLOROTHIAZIDE 25 MG TABLET PO SCH (09:50)
[2018-01-30] MEDS: CETIRIZINE 10 MG TABLET PO SCH (09:53)
[2018-01-30] MEDS: FLUTICASONE/SALMETEROL DISKUS 500-50 MCG/DOSE IH SCH ×2 (09:53→17:39)
[2018-01-30 10:00] LABS: ABSOLUTE RETICS # 0.044 10^6/uL (0.028-0.122); RETICULOCYTE COUNT (AUTO) 1.72 % (0.66-2.85)
[2018-01-30] MEDS: INSULIN DETEMIR 100 UNIT/ML 3 ML PEN SUBCUT SCH (10:03)
[2018-01-30 10:16] LABS: IRON(TIBC) 19.5 ug/dL (37-170)
[2018-01-30 11:25] LABS: FOLATE 8.96 ng/mL (>2.76)
--- NOTE | 2018-01-30 13:42 | PDOC PROGRESS REPORT ---
Subjective Progress Note for:: 01/30/18 Reason For Visit: T87.44 INFECTION OF AMPUTATION STUMP, LEFT LOWER E The patient is seen today on daily rounds. She offers no complaints. Pain control appears to be good. She denies any dizziness or other symptoms of anemia. She has been out of bed with physical therapy for transfer and upper body activity. Physical Exam Vital Signs: Temp Pulse Resp BP Pulse Ox 97.7 F 87 16 139/70 H 99 01/30/18 03:41 01/30/18 07:00 01/30/18 07:00 01/30/18 03:41 01/30/18 07:00 Intake & Output 01/29/18 01/30/18 01/31/18 06:59 06:59 06:59 Intake Total 1896 1365 0 Output Total 1800 1300 Balance 96 65 0 Additional comments: Constitutional: Well-developed well-nourished -[place] lady, morbidly obese body habitus. No apparent acute distress. Eyes: Mucous membranes pink and moist, pupils equal and reactive to light. Conjunctiva normal. Cornea normal. ENT: Hearing grossly normal. External pinna normal to inspection. Teeth intact. Tongue normal to inspection. Respiratory: Normal respiratory effort. Psychiatric: Judgment, memory, insight seem normal. Mood is pleasant and appropriate. Extremities: Upper extremities show normal range of movement. Pulses present noted to the radial arteries. Capillary refill normal. No cyanosis noted. No muscle wasting noted. Lower extremities show normal range of movement on remaining right. Complex splint dressings on left in place. Back functioning nicely.. Results Laboratory Results: 01/30/18 08:03 01/30/18 06:05 01/29/18 01/29/18 01/30/18 13:21 13:21 06:05 WBC 9.5 RBC 3.16 L Hgb 8.7 L Hct 26.2 L MCV 83 MCH 27.7 MCHC 33.4 RDW 13.6 Plt Count 290 Seg Neutrophils % Lymphocytes % Monocytes % Eosinophils % Basophils % Absolute Neutrophils Absolute Lymphocytes Absolute Monocytes Absolute Eosinophils Absolute Basophils Retic Count (auto) Absolute Retic Sodium 139.6 Potassium 4.1 Chloride 104 Carbon Dioxide 31 H Anion Gap 5 BUN 22 H Creatinine 1.38 H Est GFR ( Amer) 50 L Est GFR (Non-Af Amer) 42 L Glucose 125 H Calcium 8.3 L Iron TIBC % Saturation Ferritin Vitamin B12 Folate Blood Type B POSITIVE Antibody Screen NEGATIVE 01/30/18 01/30/18 01/30/18 06:05 06:05 08:03 WBC 8.4 7.5 RBC 2.53 L 2.55 L Hgb 7.1 L 6.9 L Hct 20.8 L 21.0 L MCV 82 82 MCH 27.9 27.2 MCHC 34.0 33.1 RDW 13.5 13.3 Plt Count 264 261 Seg Neutrophils % 65.5 Lymphocytes % 21.3 Monocytes % 7.8 Eosinophils % 4.8 Basophils % 0.6 Absolute Neutrophils 5.5 Absolute Lymphocytes 1.8 Absolute Monocytes 0.7 Absolute Eosinophils 0.4 Absolute Basophils 0.1 Retic Count (auto) Absolute Retic Sodium Potassium Chloride Carbon Dioxide Anion Gap BUN Creatinine Est GFR ( Amer) Est GFR (Non-Af Amer) Glucose Calcium Iron 19.5 L TIBC 213 L % Saturation 9 Ferritin 153.00 H Vitamin B12 331.0 Folate 8.96 Blood Type Antibody Screen 01/30/18 08:03 WBC RBC Hgb Hct MCV MCH MCHC RDW Plt Count Seg Neutrophils % Lymphocytes % Monocytes % Eosinophils % Basophils % Absolute Neutrophils Absolute Lymphocytes Absolute Monocytes Absolute Eosinophils Absolute Basophils Retic Count (auto) 1.72 Absolute Retic 0.044 Sodium Potassium Chloride Carbon Dioxide Anion Gap BUN Creatinine Est GFR ( Amer) Est GFR (Non-Af Amer) Glucose Calcium Iron TIBC % Saturation Ferritin Vitamin B12 Folate Blood Type Antibody Screen Impressions: Chest X-Ray 01/27/18 00:00 IMPRESSION: No acute cardiopulmonary findings. Assessment & Plan - Diagnosis (1) Below knee amputation status Qualifiers: Laterality: left Qualified Code(s): Z89.512 - Acquired absence of left leg below knee Is this a current diagnosis for this admission?: Yes Plan: Dressings in place. Postoperative day 4. Plan is to take down the dressings on postoperative day 6 and plan for discharge. Back working well. Pain control adequate. She is getting antibiotic this will be reconsidered on postoperative day 6. (3) Hypertension Is this a current diagnosis for this admission?: Yes (4) Anemia Qualifiers: Anemia type: iron deficiency Iron deficiency anemia type: inadequate dietary iron intake Qualified Code(s): D50.8 - Other iron deficiency anemias Is this a current diagnosis for this admission?: Yes Plan: Complex. The patient started off anemic at 10.8. Hemoglobin is drifted down to 6.1. She is completely asymptomatic. We will transfuse 1 unit and monitor. Also add vitamins. She is on iron. (5) CKD (chronic kidney disease) Qualifiers: Chronic kidney disease stage: stage 3 (moderate) Qualified Code(s): N18.3 - Chronic kidney disease, stage 3 (moderate) Is this a current diagnosis for this admission?: Yes (6) Diabetes mellitus type 1.5 Is this a current diagnosis for this admission?: Yes (7) Guillain Velazquez syndrome Is this a current diagnosis for this admission?: Yes (8) Neuropathy associated with endocrine disorder Is this a current diagnosis for this admission?: Yes (9) Blood loss anemia Is this a current diagnosis for this admission?: Yes
--- NOTE | 2018-01-30 14:21 | PDOC PROGRESS REPORT ---
Subjective Progress Note for:: 01/30/18 Subjective:: The patient is a 43-year-old female with past medical history of diabetes, hypertension, peripheral vascular disease, chronic kidney disease, morbid obesity who was admitted by the surgical team for revision of a nonhealing below the knee amputation. Hospitalist team has been consulted for medical management of diabetes and blood pressure. Patient is seen on rounds, she is found resting in bed comfortably on room air. She states that her pain is well controlled at present. We discussed her anemia and the patient tells me that she has had to receive blood transfusions in the past secondary to her chronic anemia and blood loss following surgical procedures. She is agreeable to blood transfusion today as required. She denies symptoms related to her low hemoglobin. She denies headache, dizziness, palpitations, melena. Of note, the patient has started her menses. She has no questions or concerns at this time. Reason For Visit: T87.44 INFECTION OF AMPUTATION STUMP, LEFT LOWER E Physical Exam Vital Signs: Temp Pulse Resp BP Pulse Ox 97.9 F 85 22 H 118/69 99 01/30/18 13:48 01/30/18 13:48 01/30/18 13:48 01/30/18 13:48 01/30/18 13:48 Intake & Output 01/29/18 01/30/18 01/31/18 06:59 06:59 06:59 Intake Total 1896 1365 0 Output Total 1800 1300 Balance 96 65 0 General appearance: PRESENT: no acute distress, cooperative, morbidly obese, well-developed, well-nourished Head exam: PRESENT: atraumatic, normocephalic Eye exam: PRESENT: conjunctiva pink, EOMI, PERRLA. ABSENT: scleral icterus Ear exam: PRESENT: normal external ear exam Mouth exam: PRESENT: moist, tongue midline Neck exam: ABSENT: carotid bruit, JVD, lymphadenopathy, thyromegaly Respiratory exam: PRESENT: clear to auscultation mary, symmetrical, unlabored. ABSENT: rales, rhonchi, wheezes Cardiovascular exam: PRESENT: RRR, +S1, +S2. ABSENT: diastolic murmur, rubs, systolic murmur, tachycardia Pulses: PRESENT: normal dorsalis pedis pul Vascular exam: PRESENT: normal capillary refill GI/Abdominal exam: PRESENT: normal bowel sounds, soft. ABSENT: distended, guarding, mass, organolmegaly, rebound, tenderness Rectal exam: PRESENT: deferred Extremities exam: PRESENT: full ROM. ABSENT: calf tenderness, clubbing, pedal edema Neurological exam: PRESENT: alert, awake, oriented to person, oriented to place , oriented to time, oriented to situation, CN II-XII grossly intact. ABSENT: motor sensory deficit Psychiatric exam: PRESENT: appropriate affect, normal mood. ABSENT: homicidal ideation, suicidal ideation Skin exam: PRESENT: dry, warm. ABSENT: cyanosis, intact - Surgical insicion not visualized; dressing and wound vac remain in place, rash Results Laboratory Results: 01/30/18 08:03 01/30/18 06:05 01/29/18 01/30/18 01/30/18 13:21 06:05 06:05 WBC 8.4 RBC 2.53 L Hgb 7.1 L Hct 20.8 L MCV 82 MCH 27.9 MCHC 34.0 RDW 13.5 Plt Count 264 Seg Neutrophils % 65.5 Lymphocytes % 21.3 Monocytes % 7.8 Eosinophils % 4.8 Basophils % 0.6 Absolute Neutrophils 5.5 Absolute Lymphocytes 1.8 Absolute Monocytes 0.7 Absolute Eosinophils 0.4 Absolute Basophils 0.1 Retic Count (auto) Absolute Retic Sodium 139.6 Potassium 4.1 Chloride 104 Carbon Dioxide 31 H Anion Gap 5 BUN 22 H Creatinine 1.38 H Est GFR ( Amer) 50 L Est GFR (Non-Af Amer) 42 L Glucose 125 H Calcium 8.3 L Iron TIBC % Saturation Ferritin Vitamin B12 Folate Blood Type B POSITIVE Antibody Screen NEGATIVE 01/30/18 01/30/18 01/30/18 06:05 08:03 08:03 WBC 7.5 RBC 2.55 L Hgb 6.9 L Hct 21.0 L MCV 82 MCH 27.2 MCHC 33.1 RDW 13.3 Plt Count 261 Seg Neutrophils % Lymphocytes % Monocytes % Eosinophils % Basophils % Absolute Neutrophils Absolute Lymphocytes Absolute Monocytes Absolute Eosinophils Absolute Basophils Retic Count (auto) 1.72 Absolute Retic 0.044 Sodium Potassium Chloride Carbon Dioxide Anion Gap BUN Creatinine Est GFR ( Amer) Est GFR (Non-Af Amer) Glucose Calcium Iron 19.5 L TIBC 213 L % Saturation 9 Ferritin 153.00 H Vitamin B12 331.0 Folate 8.96 Blood Type Antibody Screen Impressions: Chest X-Ray 01/27/18 00:00 IMPRESSION: No acute cardiopulmonary findings. Assessment & Plan - Diagnosis (1) Diabetes Qualifiers: Diabetes mellitus intermodal dispatcher insulin use: with intermodal dispatcher use Diabetes mellitus complication status: with unspecified complications Is this a current diagnosis for this admission?: Yes Plan: She is placed on a consistent carb diet. Will obtain Accu-Cheks before meals and at bedtime with Humalog for sliding scale coverage. As the patient is now tolerating a regular diet and eating 100% of meals, I have restarted Levemir 10 units daily. Adequate glucose control for the last 24 hours: 124-203. I have consulted the registered dietitian and gas tester. (2) Hypertension Is this a current diagnosis for this admission?: Yes Plan: Blood pressures are improved today: currently 118/69 Continue amlodipine and lisinopril. IV hydrazine and Vasotec are available as needed for BP control. (3) [id number] kidney injury Qualifiers: Acute renal failure type: unspecified Chronic kidney disease stage: unspecified stage Qualified Code(s): N17.9 - Acute kidney failure, unspecified ; N18.9 - Chronic kidney disease, unspecified; N18.9 - Chronic kidney disease, unspecified Is this a current diagnosis for this admission?: Yes Plan: Creatinine increased to 1.38 from baseline of 0.98 in setting of acute on chronic blood loss anemia following surgical procedure. Pt is placed on gentle maintenance IV fluids. Plans to transfuse 1 unit PRBC today. Will avoid nephrotoxic medication. Will monitor with daily chemistries. (4) Anemia Qualifiers: Anemia type: iron deficiency Iron deficiency anemia type: inadequate dietary iron intake Qualified Code(s): D50.8 - Other iron deficiency anemias Is this a current diagnosis for this admission?: Yes Plan: Acute on chronic anemia in setting of CKD. Hgb decreased to 6.9. No evidence of ongoing bleeding at this time; pt has started her menses. Discussed patient with Dr. Nobles. Will transfuse 1 unit PRBC today. Will continue to monitor and replace as necessary. Considering potential for GI bleed; patient denies melena and hematochezia. Occult stool is considered, however, patient is currently menstruating and so cross contamination is likely. She declines rectal exam. She is receiving a PPI. Holding lovenox. Continue iron supplementation. (5) Infection of amputation stump of left lower extremity Is this a current diagnosis for this admission?: Yes Plan: Primary plan per surgery. We will defer any necessary antibiotics and pain management to the surgical team. (6) CKD (chronic kidney disease) Qualifiers: Chronic kidney disease stage: stage 3 (moderate) Qualified Code(s): N18.3 - Chronic kidney disease, stage 3 (moderate) Is this a current diagnosis for this admission?: Yes Plan: Secondary to diabetes mellitus and hypertension. Plan as above. (7) Tachycardia Is this a current diagnosis for this admission?: Yes Plan: Resolved. Likely was secondary to postoperative pain. However, the patient's hemoglobin has dropped from 10.3 to 6.9 and the surgeon has expressed concerns for early postoperative infection; both of which could be contributing to her elevated heart rate. The patient is currently on cardiac telemetry. We will continue to monitor and address the underlying cause. - Time Time Spent with patient: 15-24 minutes Medications reviewed and adjusted accordingly: Yes
[2018-01-30] MEDS ORDERED: MORPHINE SULFATE 10 MG/ML INJ IV PRN (15:10)
[2018-01-30 21:04] LABS: ABSOLUTE EOSINOPHILS # (AUTO) 0.5 10^3/uL (0.0-0.6); ABSOLUTE LYMPHOCYTES (AUTO) 2.2 10^3/uL (0.5-4.7); ABSOLUTE MONOCYTES (AUTO) 0.6 10^3/uL (0.1-1.4); BASOPHILS % (AUTO) 0.5 % (0-2); EOSINOPHILS % (AUTO) 5.7 % (0-6); HEMATOCRIT 24.6 % (36.0-47.0); HEMOGLOBIN 8.3 g/dL (12.0-15.5); LYMPHOCYTES % (AUTO) 26.7 % (13-45); MEAN CORPUSCULAR HEMOGLOBIN 28.3 pg (27.0-33.4); MEAN CORPUSCULAR HGB CONC 33.8 g/dL (32.0-36.0); MEAN CORPUSCULAR VOLUME 84 fl (80-97); MONOCYTES % (AUTO) 7.4 % (3-13); PLATELET COUNT 284 10^3/uL (150-450); RED BLOOD COUNT 2.93 10^6/uL (3.72-5.28); RED CELL DISTRIBUTION WIDTH 13.7 % (11.5-14.0); SEGMENTED NEUTROPHILS % (AUTO) 59.7 % (42-78); TOTAL CELLS COUNTED % (AUTO) 100 %; WHITE BLOOD COUNT 8.4 10^3/uL (4.0-10.5)
[2018-01-30] MEDS: SIMVASTATIN 10 MG TABLET PO SCH (21:30)
[2018-01-31] MEDS: PREGABALIN 75 MG CAPSULE PO SCH ×3 (01:30→17:22)
[2018-01-31] MEDS: OXYCODONE-ACETAMINOPHEN 5-325 MG TABLET PO SCH (05:29)
[2018-01-31] MEDS: LANSOPRAZOLE 15 MG TAB.RAP.DR PO SCH (05:29)
[2018-01-31] MEDS: PIPERACILLIN SODIUM/TAZOBACTAM 3.375 GM in NORMAL SALINE 100 ML IV SCH ×3 (05:29→21:11)
[2018-01-31] MEDS: KETOROLAC TROMETHAMINE 10 MG TABLET PO SCH ×3 (05:29→21:12)
[2018-01-31] MEDS: MAG HYDROX/AL HYDROX/SIMETH SUSP 30 ML UDCUP PO SCH ×4 (05:30→23:54)
[2018-01-31 09:01] LABS: HEMATOCRIT 25.4 % (36.0-47.0); HEMOGLOBIN 8.6 g/dL (12.0-15.5); MEAN CORPUSCULAR HEMOGLOBIN 28.1 pg (27.0-33.4); MEAN CORPUSCULAR HGB CONC 33.7 g/dL (32.0-36.0); MEAN CORPUSCULAR VOLUME 83 fl (80-97); PLATELET COUNT 301 10^3/uL (150-450); RED BLOOD COUNT 3.05 10^6/uL (3.72-5.28); RED CELL DISTRIBUTION WIDTH 13.8 % (11.5-14.0); WHITE BLOOD COUNT 6.9 10^3/uL (4.0-10.5)
[2018-01-31] MEDS: CYANOCOBALAMIN (VITAMIN B-12) 1,000 MCG TABLET PO SCH (09:03)
[2018-01-31] MEDS: FERROUS SULFATE 325 MG TABLET PO SCH ×3 (09:03→17:23)
[2018-01-31] MEDS: LISINOPRIL 10 MG TABLET PO SCH (09:03)
[2018-01-31] MEDS: HYDROCHLOROTHIAZIDE 25 MG TABLET PO SCH (09:03)
[2018-01-31] MEDS: AMLODIPINE BESYLATE 5 MG TABLET PO SCH (09:03)
[2018-01-31] MEDS: CETIRIZINE 10 MG TABLET PO SCH (09:04)
[2018-01-31] MEDS: FLUTICASONE/SALMETEROL DISKUS 500-50 MCG/DOSE IH SCH ×2 (09:04→17:24)
[2018-01-31 09:26] LABS: ANION GAP 7 (5-19); BLOOD UREA NITROGEN 28 mg/dL (7-20); CALCIUM 8.5 mg/dL (8.4-10.2); CARBON DIOXIDE 29 mmol/L (22-30); CHLORIDE 107 mmol/L (98-107); GLUCOSE 148 mg/dL (75-110); POTASSIUM 4.5 mmol/L (3.6-5.0); SODIUM 142.7 mmol/L (137-145)
[2018-01-31] MEDS ORDERED: NORMAL SALINE 1000 ML 1,000 ML IV PRN (09:56)
[2018-01-31] MEDS: INSULIN DETEMIR 100 UNIT/ML 3 ML PEN SUBCUT SCH (10:00)
--- NOTE | 2018-01-31 10:32 | PDOC PROGRESS REPORT ---
Subjective Progress Note for:: 01/31/18 Subjective:: patient comfortable Reason For Visit: T87.44 INFECTION OF AMPUTATION STUMP, LEFT LOWER E Physical Exam Vital Signs: Temp Pulse Resp BP Pulse Ox 98.5 F 85 18 130/66 H 100 01/31/18 08:32 01/31/18 08:32 01/31/18 08:32 01/31/18 08:32 01/31/18 08:32 Intake & Output 01/30/18 01/31/18 02/01/18 06:59 06:59 06:59 Intake Total 1365 2492 Output Total 1300 861 Balance 65 1631 Extremities exam: PRESENT: other - Left BKA site dressing C/D/I Results Laboratory Results: 01/31/18 08:40 01/31/18 08:40 01/29/18 01/30/18 01/30/18 13:21 06:05 20:40 WBC 8.4 RBC 2.93 L Hgb 8.3 L Hct 24.6 L MCV 84 MCH 28.3 MCHC 33.8 RDW 13.7 Plt Count 284 Seg Neutrophils % 59.7 Lymphocytes % 26.7 Monocytes % 7.4 Eosinophils % 5.7 Basophils % 0.5 Absolute Neutrophils 5.0 Absolute Lymphocytes 2.2 Absolute Monocytes 0.6 Absolute Eosinophils 0.5 Absolute Basophils 0.0 Sodium Potassium Chloride Carbon Dioxide Anion Gap BUN Creatinine Est GFR ( Amer) Est GFR (Non-Af Amer) Glucose Calcium Iron 19.5 L TIBC 213 L % Saturation 9 Ferritin 153.00 H Vitamin B12 331.0 Folate 8.96 Blood Type B POSITIVE Antibody Screen NEGATIVE 01/31/18 01/31/18 08:40 08:40 WBC 6.9 RBC 3.05 L Hgb 8.6 L Hct 25.4 L MCV 83 MCH 28.1 MCHC 33.7 RDW 13.8 Plt Count 301 Seg Neutrophils % Lymphocytes % Monocytes % Eosinophils % Basophils % Absolute Neutrophils Absolute Lymphocytes Absolute Monocytes Absolute Eosinophils Absolute Basophils Sodium 142.7 Potassium 4.5 Chloride 107 Carbon Dioxide 29 Anion Gap 7 BUN 28 H Creatinine 1.50 H Est GFR ( Amer) 46 L Est GFR (Non-Af Amer) 38 L Glucose 148 H Calcium 8.5 Iron TIBC % Saturation Ferritin Vitamin B12 Folate Blood Type Antibody Screen Impressions: Chest X-Ray 01/27/18 00:00 IMPRESSION: No acute cardiopulmonary findings. Assessment & Plan - Plan Summary Plan Summary: A/ S/P Left BKA revision WoundVac in place P/ Left BKA Dressing to be removed tomorrow
[2018-01-31] MEDS ORDERED: OXYCODONE-ACETAMINOPHEN 5-325 MG TABLET ONE (12:28)
--- NOTE | 2018-01-31 12:49 | PDOC PROGRESS REPORT ---
Subjective Progress Note for:: 01/31/18 Subjective:: The patient is a 43-year-old female with past medical history of diabetes, hypertension, peripheral vascular disease, chronic kidney disease, morbid obesity who was admitted by the surgical team for revision of a nonhealing below the knee amputation. Hospitalist team has been consulted for medical management of diabetes and blood pressure. Patient is seen on rounds, she is found resting in bed comfortably on room air. She states that her pain is well controlled at present, she is happy they have stopped the morphine fisher gill net. The patient requests to have her amlodipine discontinued; she states this was recently stopped by Dr. Agrawal. She reports known history of CKD, but does not know what her most recent creatinine was prior to admission. She denies headaches, dizziness, chest pain, palpitations, dyspnea, orthopnea, cough, nausea, vomiting, diarrhea. She has no questions or concerns at this time. Reason For Visit: T87.44 INFECTION OF AMPUTATION STUMP, LEFT LOWER E Physical Exam Vital Signs: Temp Pulse Resp BP Pulse Ox 98.5 F 85 18 130/66 H 100 01/31/18 08:32 01/31/18 08:32 01/31/18 08:32 01/31/18 08:32 01/31/18 08:32 Intake & Output 01/30/18 01/31/18 02/01/18 06:59 06:59 06:59 Intake Total 1365 2492 Output Total 1300 861 Balance 65 1631 General appearance: PRESENT: no acute distress, cooperative, morbidly obese, well-developed, well-nourished Head exam: PRESENT: atraumatic, normocephalic Eye exam: PRESENT: conjunctiva pink, EOMI, PERRLA. ABSENT: scleral icterus Ear exam: PRESENT: normal external ear exam Mouth exam: PRESENT: moist, tongue midline Neck exam: ABSENT: carotid bruit, JVD, lymphadenopathy, thyromegaly Respiratory exam: PRESENT: clear to auscultation mary, symmetrical, unlabored. ABSENT: rales, rhonchi, wheezes Cardiovascular exam: PRESENT: RRR, +S1, +S2. ABSENT: diastolic murmur, rubs, systolic murmur Pulses: PRESENT: normal dorsalis pedis pul Vascular exam: PRESENT: normal capillary refill GI/Abdominal exam: PRESENT: normal bowel sounds, soft. ABSENT: distended, guarding, mass, organolmegaly, rebound, tenderness Rectal exam: PRESENT: deferred Extremities exam: PRESENT: full ROM, other - Lt BKA; surgical site not visualized. Wound vac in place.. ABSENT: calf tenderness, clubbing, pedal edema Neurological exam: PRESENT: alert, awake, oriented to person, oriented to place , oriented to time, oriented to situation, CN II-XII grossly intact. ABSENT: motor sensory deficit Psychiatric exam: PRESENT: appropriate affect, normal mood. ABSENT: homicidal ideation, suicidal ideation Skin exam: PRESENT: dry, intact, warm. ABSENT: cyanosis, rash Results Laboratory Results: 01/31/18 08:40 01/31/18 08:40 01/29/18 01/30/18 01/31/18 13:21 20:40 08:40 WBC 8.4 6.9 RBC 2.93 L 3.05 L Hgb 8.3 L 8.6 L Hct 24.6 L 25.4 L MCV 84 83 MCH 28.3 28.1 MCHC 33.8 33.7 RDW 13.7 13.8 Plt Count 284 301 Seg Neutrophils % 59.7 Lymphocytes % 26.7 Monocytes % 7.4 Eosinophils % 5.7 Basophils % 0.5 Absolute Neutrophils 5.0 Absolute Lymphocytes 2.2 Absolute Monocytes 0.6 Absolute Eosinophils 0.5 Absolute Basophils 0.0 Sodium Potassium Chloride Carbon Dioxide Anion Gap BUN Creatinine Est GFR ( Amer) Est GFR (Non-Af Amer) Glucose Calcium Blood Type B POSITIVE Antibody Screen NEGATIVE 01/31/18 08:40 WBC RBC Hgb Hct MCV MCH MCHC RDW Plt Count Seg Neutrophils % Lymphocytes % Monocytes % Eosinophils % Basophils % Absolute Neutrophils Absolute Lymphocytes Absolute Monocytes Absolute Eosinophils Absolute Basophils Sodium 142.7 Potassium 4.5 Chloride 107 Carbon Dioxide 29 Anion Gap 7 BUN 28 H Creatinine 1.50 H Est GFR ( Amer) 46 L Est GFR (Non-Af Amer) 38 L Glucose 148 H Calcium 8.5 Blood Type Antibody Screen Impressions: Chest X-Ray 01/27/18 00:00 IMPRESSION: No acute cardiopulmonary findings. Assessment & Plan - Diagnosis (1) Diabetes Qualifiers: Diabetes mellitus intermediate insulin use: with intermediate use Diabetes mellitus complication status: with unspecified complications Is this a current diagnosis for this admission?: Yes Plan: She is placed on a consistent carb diet. Will obtain Accu-Cheks before meals and at bedtime with Humalog for sliding scale coverage. As the patient is now tolerating a regular diet and eating 100% of meals, I have restarted Levemir 10 units daily. Adequate glucose control for the last 48 hours: 124-203. I have consulted the registered dietitian and childbirth educator. (2) Hypertension Is this a current diagnosis for this admission?: Yes Plan: Appropriate blood pressure control. Discontinue amlodipine at patient's request. Continue lisinopril/hctz. IV hydrazine and Vasotec are available as needed for BP control. (3) [id number] kidney injury Qualifiers: Acute renal failure type: unspecified Chronic kidney disease stage: unspecified stage Qualified Code(s): N17.9 - Acute kidney failure, unspecified ; N18.9 - Chronic kidney disease, unspecified; N18.9 - Chronic kidney disease, unspecified Is this a current diagnosis for this admission?: Yes Plan: Creatinine increased to 1.50 in setting of acute on chronic blood loss anemia following surgical procedure. Pt is followed by Dr. Agrawal. Review of historical labs indicates she may be near her baseline. Will discontinue IVF. Anticipate that creatinine will improve following transfusion yesterday. Will avoid nephrotoxic medication. Will monitor with daily chemistries. (4) Anemia Qualifiers: Anemia type: iron deficiency Iron deficiency anemia type: inadequate dietary iron intake Qualified Code(s): D50.8 - Other iron deficiency anemias Is this a current diagnosis for this admission?: Yes Plan: Acute on chronic anemia in setting of CKD. Hgb decreased to 6.9; now 8.6 following 1 units PRBC. No evidence of ongoing bleeding at this time; pt has started her menses. Will continue to monitor and replace as necessary. Considering potential for GI bleed; patient denies melena and hematochezia. Occult stool is considered, however, patient is currently menstruating and so cross contamination is likely. She declines rectal exam. She is receiving a PPI. Continue iron supplementation. (5) Infection of amputation stump of left lower extremity Is this a current diagnosis for this admission?: Yes Plan: Primary plan per surgery. We will defer any necessary antibiotics and pain management to the surgical team. (6) CKD (chronic kidney disease) Qualifiers: Chronic kidney disease stage: stage 3 (moderate) Qualified Code(s): N18.3 - Chronic kidney disease, stage 3 (moderate) Is this a current diagnosis for this admission?: Yes Plan: Secondary to diabetes mellitus and hypertension. Plan as above. (7) Tachycardia Is this a current diagnosis for this admission?: Yes Plan: Resolved. Likely was secondary to postoperative pain. However, the patient's hemoglobin has dropped from 10.3 to 6.9 and the surgeon has expressed concerns for early postoperative infection; both of which could be contributing to her elevated heart rate. The patient is currently on cardiac telemetry. We will continue to monitor and address the underlying cause. - Time Time Spent with patient: 15-24 minutes Medications reviewed and adjusted accordingly: Yes
[2018-01-31] MEDS: SIMVASTATIN 10 MG TABLET PO SCH (21:12)
[2018-01-31] MEDS: OXYCODONE-ACETAMINOPHEN 5-325 MG TABLET PO PRN (22:59)
[2018-02-01] MEDS: PREGABALIN 75 MG CAPSULE PO SCH ×2 (01:59→10:14)
[2018-02-01] MEDS: PIPERACILLIN SODIUM/TAZOBACTAM 3.375 GM in NORMAL SALINE 100 ML IV SCH ×2 (05:15→13:26)
[2018-02-01] MEDS: KETOROLAC TROMETHAMINE 10 MG TABLET PO SCH ×2 (05:15→13:27)
[2018-02-01] MEDS: LANSOPRAZOLE 15 MG TAB.RAP.DR PO SCH (05:15)
[2018-02-01] MEDS: MAG HYDROX/AL HYDROX/SIMETH SUSP 30 ML UDCUP PO SCH ×2 (05:16→11:53)
[2018-02-01 07:58] LABS: HEMOGLOBIN 8.7 g/dL (12.0-15.5); MEAN CORPUSCULAR HEMOGLOBIN 28.6 pg (27.0-33.4); MEAN CORPUSCULAR HGB CONC 34.6 g/dL (32.0-36.0); MEAN CORPUSCULAR VOLUME 83 fl (80-97); PLATELET COUNT 314 10^3/uL (150-450); RED BLOOD COUNT 3.04 10^6/uL (3.72-5.28); RED CELL DISTRIBUTION WIDTH 13.9 % (11.5-14.0); WHITE BLOOD COUNT 7.4 10^3/uL (4.0-10.5)
[2018-02-01] MEDS: OXYCODONE-ACETAMINOPHEN 5-325 MG TABLET PO PRN ×2 (08:12→15:35)
[2018-02-01 08:25] LABS: ANION GAP 7 (5-19); BLOOD UREA NITROGEN 23 mg/dL (7-20); CALCIUM 8.4 mg/dL (8.4-10.2); CARBON DIOXIDE 28 mmol/L (22-30); CHLORIDE 107 mmol/L (98-107); GLUCOSE 115 mg/dL (75-110); POTASSIUM 4.2 mmol/L (3.6-5.0); SODIUM 141.6 mmol/L (137-145)
[2018-02-01] MEDS: CYANOCOBALAMIN (VITAMIN B-12) 1,000 MCG TABLET PO SCH (10:14)
[2018-02-01] MEDS: LISINOPRIL 10 MG TABLET PO SCH (10:14)
[2018-02-01] MEDS: HYDROCHLOROTHIAZIDE 25 MG TABLET PO SCH (10:14)
[2018-02-01] MEDS: FERROUS SULFATE 325 MG TABLET PO SCH ×2 (10:15→13:27)
[2018-02-01] MEDS: CETIRIZINE 10 MG TABLET PO SCH (10:15)
[2018-02-01] MEDS: INSULIN DETEMIR 100 UNIT/ML 3 ML PEN SUBCUT SCH (10:16)
[2018-02-01] MEDS: ENOXAPARIN SODIUM INJ 30 MG/0.3 ML DISP.SYRIN SUBCUT SCH (10:17)
[2018-02-01] MEDS: FLUTICASONE/SALMETEROL DISKUS 500-50 MCG/DOSE IH SCH (10:18)
--- NOTE | 2018-02-01 15:53 | PDOC PROGRESS REPORT ---
Subjective Progress Note for:: 02/01/18 Subjective:: The patient is a 43-year-old female with past medical history of diabetes, hypertension, peripheral vascular disease, chronic kidney disease, morbid obesity who was admitted by the surgical team for revision of a nonhealing below the knee amputation. Hospitalist team has been consulted for medical management of diabetes and blood pressure. Patient is seen on rounds, she is found resting in bed comfortably on room air. She states that her pain is well controlled. She is hopeful to be discharged home today. She denies headaches, dizziness, chest pain, palpitations, dyspnea, orthopnea, cough, nausea, vomiting, diarrhea. She has no questions or concerns at this time. Reason For Visit: T87.44 INFECTION OF AMPUTATION STUMP, LEFT LOWER E Physical Exam Vital Signs: Temp Pulse Resp BP Pulse Ox 97.9 F 73 19 129/59 H 100 02/01/18 12:08 02/01/18 12:08 02/01/18 12:08 02/01/18 12:08 02/01/18 12:08 Intake & Output 01/31/18 02/01/18 02/02/18 06:59 06:59 06:59 Intake Total 2492 3116 Output Total 861 750 Balance 1631 2366 Weight 145.2 kg General appearance: PRESENT: no acute distress, morbidly obese, well-developed, well-nourished Head exam: PRESENT: atraumatic, normocephalic Eye exam: PRESENT: conjunctiva pink, EOMI, PERRLA. ABSENT: scleral icterus Ear exam: PRESENT: normal external ear exam Mouth exam: PRESENT: moist, tongue midline Neck exam: ABSENT: carotid bruit, JVD, lymphadenopathy, thyromegaly Respiratory exam: PRESENT: clear to auscultation mary, symmetrical, unlabored. ABSENT: rales, rhonchi, wheezes Cardiovascular exam: PRESENT: RRR, +S1, +S2. ABSENT: diastolic murmur, rubs, systolic murmur Pulses: PRESENT: normal dorsalis pedis pul Vascular exam: PRESENT: normal capillary refill GI/Abdominal exam: PRESENT: normal bowel sounds, soft. ABSENT: distended, guarding, mass, organolmegaly, rebound, tenderness Rectal exam: PRESENT: deferred Extremities exam: PRESENT: full ROM, other - Lt BKA; surgical site not visualized. Wound vac in place.. ABSENT: calf tenderness, clubbing, pedal edema Neurological exam: PRESENT: alert, awake, oriented to person, oriented to place , oriented to time, oriented to situation, CN II-XII grossly intact. ABSENT: motor sensory deficit Psychiatric exam: PRESENT: appropriate affect, normal mood. ABSENT: homicidal ideation, suicidal ideation Skin exam: PRESENT: dry, intact, warm. ABSENT: cyanosis, rash Results Laboratory Results: 02/01/18 07:43 02/01/18 07:43 02/01/18 02/01/18 07:43 07:43 WBC 7.4 RBC 3.04 L Hgb 8.7 L Hct 25.0 L MCV 83 MCH 28.6 MCHC 34.6 RDW 13.9 Plt Count 314 Sodium 141.6 Potassium 4.2 Chloride 107 Carbon Dioxide 28 Anion Gap 7 BUN 23 H Creatinine 1.23 Est GFR ( Amer) 57 L Est GFR (Non-Af Amer) 47 L Glucose 115 H Calcium 8.4 Impressions: Chest X-Ray 01/27/18 00:00 IMPRESSION: No acute cardiopulmonary findings. Assessment & Plan - Diagnosis (1) Diabetes Qualifiers: Diabetes mellitus prison insulin use: with roasterman use Diabetes mellitus complication status: with unspecified complications Is this a current diagnosis for this admission?: Yes Plan: She is placed on a consistent carb diet. Will obtain Accu-Cheks before meals and at bedtime with Humalog for sliding scale coverage. Continue Levemir 10 units daily. Adequate glucose control for the last 48 hours : 120-186. I have consulted the registered dietitian and music educator. (2) Hypertension Is this a current diagnosis for this admission?: Yes Plan: Slightly elevated today after holding amlodipine; patient declines to resume medication. Continue lisinopril/hctz. IV hydrazine and Vasotec are available as needed for BP control. (3) [id number] kidney injury Qualifiers: Acute renal failure type: unspecified Chronic kidney disease stage: unspecified stage Qualified Code(s): N17.9 - Acute kidney failure, unspecified ; N18.9 - Chronic kidney disease, unspecified; N18.9 - Chronic kidney disease, unspecified Is this a current diagnosis for this admission?: Yes Plan: Resolved. Pt is followed by Dr. Cailing. Review of historical labs indicates she may be near her baseline. Will avoid nephrotoxic medication. Will monitor with daily chemistries. (4) Anemia Qualifiers: Anemia type: iron deficiency Iron deficiency anemia type: inadequate dietary iron intake Qualified Code(s): D50.8 - Other iron deficiency anemias Is this a current diagnosis for this admission?: Yes Plan: Acute on chronic anemia in setting of CKD. Hgb decreased to 6.9; now 8.7 Patient did receive 1 unit PRBC. No evidence of ongoing bleeding at this time; pt has started her menses. Will continue to monitor and replace as necessary. She is receiving a PPI. Continue iron supplementation. (5) Infection of amputation stump of left lower extremity Is this a current diagnosis for this admission?: Yes Plan: Primary plan per surgery. We will defer any necessary antibiotics and pain management to the surgical team. (6) CKD (chronic kidney disease) Qualifiers: Chronic kidney disease stage: stage 3 (moderate) Qualified Code(s): N18.3 - Chronic kidney disease, stage 3 (moderate) Is this a current diagnosis for this admission?: Yes Plan: Secondary to diabetes mellitus and hypertension. Plan as above. (7) Tachycardia Is this a current diagnosis for this admission?: Yes Plan: Resolved. - Time Time Spent with patient: 15-24 minutes Medications reviewed and adjusted accordingly: Yes Anticipated discharge: Home Within: Other - Medically stable for discharge at the discretion of primary attending; Surgical Services
--- NOTE | 2018-02-01 16:08 | PDOC DISCHARGE SUMMARY ---
General - Admit/Disc Date/PCP Admission Date/Primary Care Provider: 01/26/18 16:17 ANT LADD MD Discharge Date: 02/01/18 - Discharge Diagnosis (1) Below knee amputation status Is this a current diagnosis for this admission?: Yes (3) Hypertension Is this a current diagnosis for this admission?: Yes (4) Anemia Is this a current diagnosis for this admission?: Yes (5) CKD (chronic kidney disease) Is this a current diagnosis for this admission?: Yes (6) Diabetes mellitus type 1.5 Is this a current diagnosis for this admission?: Yes (7) Guillain Velazquez syndrome Is this a current diagnosis for this admission?: Yes (8) Neuropathy associated with endocrine disorder Is this a current diagnosis for this admission?: Yes (9) Blood loss anemia Is this a current diagnosis for this admission?: Yes - Additional Information Home Medications: Aspirin [Adult Low Dose Aspirin EC] 81 mg PO DAILY 11/20/17 Cetirizine HCl [Zyrtec 10 mg Tablet] 10 mg PO DAILY 11/20/17 Ferrous Sulfate [Feosol 325 mg Tablet] 325 mg PO TID 11/20/17 Fluticasone/Salmeterol [Advair 500-50 Diskus 14 Dose/Diskus] 1 puff IH BID 11/20 Furosemide [Lasix 20 mg Tablet] 20 mg PO DAILYP PRN 11/20/17 Insulin Detemir [Levemir Flextouch] 70 units SQ DAILY 11/20/17 Lisinopril/Hydrochlorothiazide [Zestoretic 20-25 mg Tablet] 1 tab PO DAILY 11/20 Omeprazole 20 mg PO DAILY 11/20/17 Pregabalin [Lyrica] 150 mg PO Q8 11/20/17 Simvastatin [Zocor 20 mg Tablet] 20 mg PO QHS 11/20/17 Ascorbic Acid [Vitamin C 500 mg Tablet] 500 mg PO BID tablet 11/24/17 Multivitamin [Tab-A-Alana (Multiple Vitamin) Tablet] 1 tab PO DAILY tablet 11/24 Amlodipine Besylate [Norvasc 5 mg Tablet] 5 mg PO DAILY 01/26/18 Dulaglutide [Trulicity] 1.5 mg SQ TH@1000 01/26/18 Ergocalciferol (Vitamin D2) [Drisdol 50,000 Unit (1.25MG) Capsule] 50,000 unit PO .QWEEKLY 01/26/18 Insulin Lispro [Humalog Insulin 100 Unit/1 ml 3 ml Vial] 0 unit SUBCUT .SLD SCALE 01/26/18 Lidocaine HCl [Xylocaine 2% Jelly 30 ml Tube] 30 ml TOP .DRESSING CHANGE Oxycodone HCl [Oxy-Ir 5 mg Tablet] 15 mg PO Q6HP PRN 01/26/18 History of Present Illness History of Present Illness: RUTH WOOD is a 43 year old female admitted for definitive left below- knee amputation. She had a guillotine amputation from a previous septic episode. Hospital Course Hospital Course: The patient was admitted and underwent a challenging left below-knee amputation. Challenging because of edema, morbid obesity and the presence of an open wound. She was kept in the hospital for optimal wound management. Also given IV antibiotic for the presence of a prior infection. Her hemoglobin did drop down as low as 6 g and she was transfused 1 unit of blood. At this point the patient is comfortable, wants to go home. Her hemoglobin is up to 8.7 after transfusing 1 unit of blood. For pain control is satisfactory with Percocet. At this point the patient has achieved maximal hospital benefit and will be discharged. She has home care set up and will be continued physical therapy. She is given a prescription for oxycodone and is to continue her normal medications. Follow-up is to be in office with her primary care physician also with Dr. Jose J Nobles MD. She is to follow-up with Dr. Nobles in about a week. Dressings can be left on until a follow-up visit next week. Physical Exam Vital Signs: Temp Pulse Resp BP Pulse Ox 97.9 F 73 19 129/59 H 100 02/01/18 12:08 02/01/18 12:08 02/01/18 12:08 02/01/18 12:08 02/01/18 12:08 Intake & Output 01/31/18 02/01/18 02/02/18 06:59 06:59 06:59 Intake Total 2492 3116 Output Total 861 750 Balance 1631 2366 Weight 145.2 kg Additional comments: Constitutional: Well-developed well-nourished -Citizen Of [place] lady, morbidly obese body habitus. No apparent acute distress. Eyes: Mucous membranes pink and moist, pupils equal and reactive to light. Conjunctiva normal. Cornea normal. ENT: Hearing grossly normal. External pinna normal to inspection. Teeth intact. Tongue normal to inspection. Respiratory: Normal respiratory effort. Psychiatric: Judgment, memory, insight seem normal. Mood is pleasant and appropriate. Lower extremities show normal range of movement. On the right. The amputated left below-knee shows a good-looking wound with no obvious complications. Mobility of the knee is satisfactory. The joint and BK length appears satisfactory. Remodeling is anticipated for optimal stump shrinkage. Results Laboratory Results: 02/01/18 07:43 02/01/18 07:43 01/30/18 02/01/18 02/01/18 06:05 07:43 07:43 WBC 7.4 RBC 3.04 L Hgb 8.7 L Hct 25.0 L MCV 83 MCH 28.6 MCHC 34.6 RDW 13.9 Plt Count 314 Sodium 141.6 Potassium 4.2 Chloride 107 Carbon Dioxide 28 Anion Gap 7 BUN 23 H Creatinine 1.23 Est GFR ( Amer) 57 L Est GFR (Non-Af Amer) 47 L Glucose 115 H Calcium 8.4 Transferrin 127 L Impressions: Chest X-Ray 01/27/18 00:00 IMPRESSION: No acute cardiopulmonary findings. Qualifiers - * PATEINT BEING DISCHARGED WITH ANY OF THE FOLLOWING DIAGNOSIS?: No VTE patient discharged on overlapping Therapy?: No Reason(s) for not prescribing Overlap Therapy:: Not indicated Stroke Pt being discharged on Anti-thrombolytic therapy?: No Reason(s) for not prescribing Anti-thrombolytic therapy:: Not indicated Stroke Pt being discharged on Anti-coagulation therapy?: No Reason(s) for not prescribing Anti-coagulation therapy:: Not indicated Reason(s) for not prescribing Statins therapy:: Not indicated NM Pt being discharged on Aspirin therapy?: No Reason(s) for not prescribing Aspirin therapy:: Not indicated NM Pt being discharged on Statins?: No Reason(s) for not prescribing Statin therapy:: Not indicated NM Pt discharged ACEI/ARBS?: No Reason(s) for not prescribing ACEI/ARBS:: Not indicated HF Pt being discharged on ACEI for LVEF less than 40%?: No Reason(s) for not prescribing ACEI:: Not indicated HF Pt being discharged on ARBS for LVEF less than 40%?: No Reason(s) for not prescribing ARBS:: Not indicated HF Pt with Afib discharged with Warfarin?: No Reason(s) for not prescribing Warfarin:: Not indicated HF Pt discharged on evidence-based Beta Chiquis:: No Reason(s) for not prescribing evidence-based Beta Chiquis:: Not indicated Plan Discharge Plan: Discharge patient home with instructions as noted. Discharge home [after recovery per ASU criteria]. Diet ADA, as tolerated. Activities within moderation encouraged. Patient encouraged to be as mobile as possible, we transfer to exercise the left knee. Follow up in my office by appointment in about [1 week]. Call for appointment. Leave wounds [covered], [keep clean and dry, until office visit in 1 week]. Hold of on school/work [until evaluation in office]. Meds per med rec. Also prescription for oxycodone given. May shower, pursue ordinary hygiene, [try to keep operated area as dry as possible].
[2018-02-01 16:35] VITALS: BP 146/69
== END 2018-02-01 17:52 | disposition home health service (06) | DRG 908 ==
LOC: OROUT 10:39 → INOR 16:17 → 4N 21:20
PROVIDERS: ADMIT Surgery; ATTEND Surgery
PROC: 02HV33Z Insertion of Infusion Device into Superior Vena Cava, Percutaneous Approach (ICD-10-PCS; 2018-01-26)
PROC: 0Y6J0Z2 Detachment at Left Lower Leg, Mid, Open Approach (ICD-10-PCS; principal; 2018-01-26 13:00)
PROC: 30233N1 Transfusion of Nonautologous Red Blood Cells into Peripheral Vein, Percutaneous Approach (ICD-10-PCS; 2018-01-30)
DX: T81.89XA Other complications of procedures, not elsewhere classified, initial encounter (principal); L97.828 Non-pressure chronic ulcer of other part of left lower leg with other specified severity; G61.0 Guillain-Barre syndrome; N17.9 Acute kidney failure, unspecified; D62 Acute posthemorrhagic anemia; Z68.43 Body mass index [BMI] 50.0-59.9, adult; K21.9 Gastro-esophageal reflux disease without esophagitis; E78.00 Pure hypercholesterolemia, unspecified; E11.22 Type 2 diabetes mellitus with diabetic chronic kidney disease; I12.9 Hypertensive chronic kidney disease with stage 1 through stage 4 chronic kidney disease, or unspecified chronic kidney disease; E11.51 Type 2 diabetes mellitus with diabetic peripheral angiopathy without gangrene; E11.40 Type 2 diabetes mellitus with diabetic neuropathy, unspecified; N18.3 Chronic kidney disease, stage 3 (moderate); D50.9 Iron deficiency anemia, unspecified; R00.0 Tachycardia, unspecified; E66.01 Morbid (severe) obesity due to excess calories; L60.2 Onychogryphosis; F17.210 Nicotine dependence, cigarettes, uncomplicated; Z89.442 Acquired absence of left ankle; Z79.4 Long term (current) use of insulin; Z79.84 Long term (current) use of oral hypoglycemic drugs; Z79.82 Long term (current) use of aspirin; Z79.51 Long term (current) use of inhaled steroids; Z79.899 Other long term (current) drug therapy
CPT/HCPCS: 01482; 36415; 36430; 71045; 80048; 82607; 82728; 82746; 82962; 83540; 83550; 84466; 85025; 85027; 85045; 86850; 86900; 86901; 86920; 88305; 88311; 93005; 93010; 94799; G8978-GP; G8979-GP; J0360; J1650; J1815; J2250; J2270; J2370; J2543; J3010; J3490; P9016

== ENCOUNTER → 2018-03-30 | Outpatient (CLI) | payer MEDICARE, MEDICAID ==
[2018-03-30 15:41] LABS: ABSOLUTE BASOPHILS # (AUTO) 0.1 10^3/uL (0.0-0.2); ABSOLUTE EOSINOPHILS # (AUTO) 0.4 10^3/uL (0.0-0.6); ABSOLUTE LYMPHOCYTES (AUTO) 2.5 10^3/uL (0.5-4.7); ABSOLUTE MONOCYTES (AUTO) 0.5 10^3/uL (0.1-1.4); ABSOLUTE NEUT (AUTO) 4.5 10^3/uL (1.7-8.2); EOSINOPHILS % (AUTO) 4.9 % (0-6); HEMATOCRIT 32.7 % (36.0-47.0); HEMOGLOBIN 10.9 g/dL (12.0-15.5); LYMPHOCYTES % (AUTO) 31.8 % (13-45); MEAN CORPUSCULAR HEMOGLOBIN 27.7 pg (27.0-33.4); MEAN CORPUSCULAR HGB CONC 33.4 g/dL (32.0-36.0); MEAN CORPUSCULAR VOLUME 83 fl (80-97); MONOCYTES % (AUTO) 5.7 % (3-13); PLATELET COUNT 252 10^3/uL (150-450); RED BLOOD COUNT 3.94 10^6/uL (3.72-5.28); RED CELL DISTRIBUTION WIDTH 14.2 % (11.5-14.0); SEGMENTED NEUTROPHILS % (AUTO) 56.6 % (42-78); TOTAL CELLS COUNTED % (AUTO) 100 %
[2018-03-30 16:02] LABS: ALBUMIN 3.5 g/dL (3.5-5.0); ANION GAP 10 (5-19); BLOOD UREA NITROGEN 20 mg/dL (7-20); CALCIUM 9.1 mg/dL (8.4-10.2); CARBON DIOXIDE 27 mmol/L (22-30); CHLORIDE 108 mmol/L (98-107); GLUCOSE 185 mg/dL (75-110); PHOSPHORUS 3.7 mg/dL (2.5-4.5); POTASSIUM 4.1 mmol/L (3.6-5.0)
[2018-03-30 17:08] LABS: APPEARANCE,URINE CLOUDY; BILIRUBIN,URINE NEGATIVE (NEGATIVE); COLOR,URINE RED; GLUCOSE, URINE 50 mg/dL (NEGATIVE); KETONES,URINE NEGATIVE (NEGATIVE); LEUKOCYTE ESTERASE,URINE SMALL (NEGATIVE); NITRITE,URINE NEGATIVE (NEGATIVE); PROTEIN,URINE 100 mg/dL (NEGATIVE); URINE SPECIFIC GRAVITY 1.019; UROBILINOGEN,URINE NEGATIVE mg/dL (<2.0)
== END ==
LOC: OD 14:47
PROVIDERS: ATTEND Internal Medicine Nephrology
DX: N18.3 Chronic kidney disease, stage 3 (moderate) (principal); E83.39 Other disorders of phosphorus metabolism; D64.9 Anemia, unspecified; E11.9 Type 2 diabetes mellitus without complications
CPT/HCPCS: 36415; 80048; 81001; 82040; 82043; 82306; 82570; 83970; 84100; 85025

== ENCOUNTER → 2018-07-19 | Outpatient (CLI) | payer MEDICAID | LOC: LAB 20:13 | PROVIDERS: ATTEND Nurse Practitioner Acute Care | DX: R10.9 Unspecified abdominal pain (principal) | CPT/HCPCS: 87086 ==

== ENCOUNTER 2018-07-24 14:14 | Emergency (ER) | payer MEDICARE, MEDICAID ==
--- NOTE | 2018-07-24 14:50 | ER Document Report ---
ED Medical Screen (RME) - General Chief Complaint: Abdominal Pain Stated Complaint: LEFT SIDE PAIN Time Seen by Provider: 07/24/18 14:30 Mode of Arrival: Ambulatory Information source: Patient Notes: 43-year-old female presents with left flank pain for 10 days. She describes it as intermittent pressure that is worse with drinking a beer. Patient is currently in pain management for right-sided back pain. She takes oxycodone 15 mg. Patient denies fever, chills, nausea, vomiting, dysuria, hematuria. I have greeted and performed a rapid initial assessment of this patient. A comprehensive ED assessment and evaluation of the patient, analysis of test results and completion of medical decision making process we will be contacted by additional ED providers. PHYSICAL EXAMINATION: Vital signs reviewed-hypertensive, afebrile, not hypoxic. GENERAL: Well-appearing, well-nourished and in no acute distress. LUNGS: Mild wheezing Musculoskeletal: Left BKA NEUROLOGICAL: Normal speech, normal gait. PSYCH: Normal mood, normal affect. SKIN: Warm, Dry, normal turgor, no rashes or lesions noted. TRAVEL OUTSIDE OF THE [place] IN LAST 30 DAYS: No - HPI Onset: Other Onset/Duration: Intermittent Quality of pain: Pressure Severity: Moderate Associated Symptoms: denies: Abdominal pain, Chest pain, Diarrhea, Fever, Nausea Exacerbated by: Denies Relieved by: Denies Similar symptoms previously: No Recently seen / treated by doctor: No - Related Data Smoking: Non-smoker Frequency of alcohol use: Occasional Drug Abuse: None Allergies/Adverse Reactions: No Known Allergies Allergy (Verified 07/24/18 14:14) Past Medical History - Social History Chew tobacco use (# tins/day): No Frequency of alcohol use: Rare Drug Abuse: None - Past Medical History Cardiac Medical History: Reports: Hx Hypercholesterolemia, Hx Hypertension Denies: Hx Coronary Artery Disease, Hx Heart Attack Pulmonary Medical History: Reports: Hx Asthma, Hx Sleep Apnea - She wears CPAP at home Denies: Hx Bronchitis, Hx COPD, Hx Pneumonia Neurological Medical History: Denies: Hx Cerebrovascular Accident, Hx Seizures Endocrine Medical History: Reports: Hx Diabetes Mellitus Type 2 Renal/ Medical History: Denies: Hx Peritoneal Dialysis Musculoskeltal Medical History: Denies Hx Arthritis, Denies Hx Fibromyalgia, Reports Hx Musculoskeletal Deformity - Carpal tunnel and heel spurs Psychiatric Medical History: Denies: Hx Depression Past Surgical History: Reports: Hx Section - Twice, Hx Orthopedic Surgery - Heel spur surgery, bilateral carpal tunnel surgery, left BLK amputation, Other - 2 c section, left bone spur removal, left foot surg, R eye surg as child - Immunizations Immunizations up to date: Yes Hx Diphtheria, Pertussis, Tetanus Vaccination: No History of Influenza Vaccine for 07/2017 - 12/2017 Season: Yes Influenza Administration Date for 07/2017 - 12/2017 Season: 07/19/17 Physical Exam - Vital signs Vitals: Temp Pulse Resp BP Pulse Ox 98.5 F 86 16 198/87 H 99 07/24/18 14:21 07/24/18 14:21 07/24/18 14:21 07/24/18 14:21 07/24/18 14:21 Course - Vital Signs Vital signs: Temp Pulse Resp BP Pulse Ox 98.5 F 86 16 198/87 H 99 07/24/18 14:21 07/24/18 14:21 07/24/18 14:21 07/24/18 14:21 07/24/18 14:21 Doctor's Discharge - Discharge Referrals: LAURENT WEEKS NP [Primary Care Provider] - Follow up as needed
[2018-07-24 15:18] LABS: ABSOLUTE EOSINOPHILS # (AUTO) 0.2 10^3/uL (0.0-0.6); ABSOLUTE LYMPHOCYTES (AUTO) 1.8 10^3/uL (0.5-4.7); ABSOLUTE MONOCYTES (AUTO) 0.3 10^3/uL (0.1-1.4); ABSOLUTE NEUT (AUTO) 4.4 10^3/uL (1.7-8.2); BASOPHILS % (AUTO) 0.2 % (0-2); EOSINOPHILS % (AUTO) 2.3 % (0-6); HEMATOCRIT 34.7 % (36.0-47.0); HEMOGLOBIN 11.7 g/dL (12.0-15.5); LYMPHOCYTES % (AUTO) 26.6 % (13-45); MEAN CORPUSCULAR HEMOGLOBIN 28.4 pg (27.0-33.4); MEAN CORPUSCULAR HGB CONC 33.7 g/dL (32.0-36.0); MEAN CORPUSCULAR VOLUME 84 fl (80-97); MONOCYTES % (AUTO) 5.1 % (3-13); PLATELET COUNT 305 10^3/uL (150-450); RED BLOOD COUNT 4.12 10^6/uL (3.72-5.28); RED CELL DISTRIBUTION WIDTH 13.7 % (11.5-14.0); SEGMENTED NEUTROPHILS % (AUTO) 65.8 % (42-78); TOTAL CELLS COUNTED % (AUTO) 100 %; WHITE BLOOD COUNT 6.7 10^3/uL (4.0-10.5)
--- NOTE | 2018-07-24 15:29 | ER Document Report ---
ED General - General Chief Complaint: Abdominal Pain Stated Complaint: LEFT SIDE PAIN Time Seen by Provider: 07/24/18 14:30 Mode of Arrival: Ambulatory TRAVEL OUTSIDE OF THE [place] IN LAST 30 DAYS: No - HPI Notes: Patient is a 43-year-old female with a history of chronic pain, diabetes, hypertension who presents to the ED complaining of left upper abdominal pain intermittently over the last 10 days. Patient states that she has not noticed any worsening pain with p.o. intake. The pain does not radiate. Pain is described as a soreness. Patient states that she is urinating normally and having normal bowel movements. Denies any drug allergies. No other concerns or complaints. Surgical history significant for 2 C-sections. Denies any headache, fever, URI, sore throat, chest pain, palpitations, syncope, cough, shortness of breath, wheeze, dyspnea, nausea/vomiting/diarrhea, urinary retention, dysuria, hematuria, acute back pain, loss of control of bowel or bladder, numbness/tingling, saddle anesthesia, muscle paralysis/weakness, or rash. - Related Data Allergies/Adverse Reactions: No Known Allergies Allergy (Verified 07/24/18 14:14) Past Medical History - General Information source: Patient - Social History Smoking Status: Former Smoker Chew tobacco use (# tins/day): No Frequency of alcohol use: Rare Drug Abuse: None Family History: CAD, DM, Hyperlipidemia, Hypertension Patient has suicidal ideation: No Patient has homicidal ideation: No - Past Medical History Cardiac Medical History: Reports: Hx Hypercholesterolemia, Hx Hypertension Denies: Hx Coronary Artery Disease, Hx Heart Attack Pulmonary Medical History: Reports: Hx Asthma, Hx Sleep Apnea - She wears CPAP at home Denies: Hx Bronchitis, Hx COPD, Hx Pneumonia Neurological Medical History: Denies: Hx Cerebrovascular Accident, Hx Seizures Endocrine Medical History: Reports: Hx Diabetes Mellitus Type 2 Renal/ Medical History: Denies: Hx Peritoneal Dialysis Musculoskeletal Medical History: Denies Hx Arthritis, Denies Hx Fibromyalgia, Reports Hx Musculoskeletal Deformity - Carpal tunnel and heel spurs Psychiatric Medical History: Denies: Hx Depression Past Surgical History: Reports: Hx Section - Twice, Hx Orthopedic Surgery - Heel spur surgery, bilateral carpal tunnel surgery, left BLK amputation, Other - 2 c section, left bone spur removal, left foot surg, R eye surg as child - Immunizations Immunizations up to date: Yes Hx Diphtheria, Pertussis, Tetanus Vaccination: No Review of Systems - Review of Systems -: Yes All other systems reviewed and negative Physical Exam - Vital signs Vitals: Temp Pulse Resp BP Pulse Ox 98.5 F 86 16 198/87 H 99 07/24/18 14:21 07/24/18 14:21 07/24/18 14:21 07/24/18 14:21 07/24/18 14:21 - Notes Notes: PHYSICAL EXAMINATION: GENERAL: Well-appearing, well-nourished and in no acute distress. HEAD: Atraumatic, normocephalic. EYES: Pupils equal round and reactive to light, extraocular movements intact, sclera anicteric, conjunctiva are normal. ENT: Nares patent and without discharge. oropharynx clear without exudates. No tonsilar hypertrophy or erythema. Moist mucous membranes. NECK: Normal range of motion, supple without lymphadenopathy LUNGS: Breath sounds clear to auscultation bilaterally and equal. No wheezes rales or rhonchi. HEART: Regular rate and rhythm without murmurs, rubs, gallops. ABDOMEN: Soft, nontender, nondistended abdomen. No guarding, no rebound. No masses appreciated. Normal bowel sounds present. No CVA tenderness bilaterally. Morbid obesity. Peguero neg. Area of concern is when she points to the left mid abd. Musculoskeletal: FROM to passive/active. Strength 5+/5. 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 Extremities: No cyanosis, clubbing, or edema b/l. Peripheral pulses 2+. Capillary refill less than 3 seconds. NEUROLOGICAL: Normal speech, normal gait. PSYCH: Normal mood, normal affect. SKIN: Warm, Dry, normal turgor, no rashes or lesions noted. Course - Re-evaluation Re-evalutation: 07/24/18 18:37 Patient is an afebrile, well-hydrated, 43-year-old female who presents to the ED unspecified left upper abdominal discomfort and elevated glucose. Vitals are acceptable without any significant tachycardia, tachypnea, or hypoxia. PE is otherwise unremarkable. Abdominal limited ultrasound unremarkable. CBC, CMP , urinalysis, lipase were grossly unremarkable aside from the elevated glucose at 534. Patient has been out of her insulin. Patient was given 15 units and fluids today. Patient had resolution of her symptoms and is feeling much better. I suspect that her symptoms were secondary to the elevated glucose. Patient's abdomen has remained soft and nontender. She is nontoxic-appearing and is tolerating p.o. without difficulties. No further labs or imaging warranted at this time. Patient states that she is feeling much better and is ready to go home. Her Accu-Chek showed a glucose of 299. Low suspicion/risk for DKA, HHS, acute appendicitis, bowel obstruction, acute cholecystitis, acute cholangitis, perforated diverticulitis, incarcerated hernia, pancreatitis, perforated ulcer, peritonitis, sepsis, or other systemic emergent condition at this time. Patient is aware that her condition can change from initial presentation and she needs to monitor symptoms closely and seek medical attention if any acute changes. I will send her home with a prescription for her insulin. Conservative measures otherwise for symptoms. Recheck with your PCM in 2-3 days. Return to the ED with any worsening/concerning symptoms otherwise as reviewed in discharge. Patient is in agreement. - Vital Signs Vital signs: Temp Pulse Resp BP Pulse Ox 98.5 F 86 16 198/87 H 99 07/24/18 14:21 07/24/18 14:21 07/24/18 14:21 07/24/18 14:21 07/24/18 14:21 - Laboratory Result Diagrams: 07/24/18 15:02 07/24/18 15:02 Laboratory results interpreted by me: 07/24/18 07/24/18 07/24/18 15:02 15:02 15:02 Hgb 11.7 L Hct 34.7 L Sodium 134.4 L Est GFR (Non-Af Amer) 59 L Glucose 534 H* Albumin 3.4 L Urine Protein 30 H Urine Glucose (UA) >=500 H Urine Blood SMALL H Discharge - Discharge Clinical Impression: Upper abdominal pain, unspecified, Elevated glucose Condition: Stable Disposition: HOME, SELF-CARE Instructions: Abdominal Pain ([facility]) Additional Instructions: Maintain adequate fluid and food intake Low-carb/sugar diet tylenol if needed Monitor glucose levels appropriately Take insulin as directed Monitor for any worsening symptoms Make sure you are staying hydrated enough to urinate and have normal BM's Recheck with your PCM in 2-3 days Return to the ED with any worsening symptoms and/or development of fever, headache, chest pain, palpitations, syncope, shortness of breath, trouble breathing, abdominal pain, n/v/d, blood in stool/urine, weakness, or other worsening symptoms that are concerning to you. Prescriptions: Dulaglutide [Trulicity] 1.5 mg SQ ASDIR #1 ml Insulin Detemir [Levemir Flextouch] 70 unit SQ DAILY 10 Days insuln.pen Insulin Lispro [Humalog Kwikpen U-100] 100 unit SQ ASDIR PRN 10 Days insuln.pen PRN Reason: Forms: Elevated Blood Pressure Referrals: LAURENT WEEKS NP [NURSE PRACTITIONER] - 07/26/18
[2018-07-24 15:38] LABS: ALANINE AMINOTRANSFERASE 18 U/L (9-52); ALBUMIN 3.4 g/dL (3.5-5.0); ALKALINE PHOSPHATASE 109 U/L (38-126); ANION GAP 7 (5-19); ASPARTATE AMINO TRANSFERASE 17 U/L (14-36); BILIRUBIN,DIRECT 0.3 mg/dL (0.0-0.4); BILIRUBIN,TOTAL 0.7 mg/dL (0.2-1.3); BLOOD UREA NITROGEN 20 mg/dL (7-20); CALCIUM 9.6 mg/dL (8.4-10.2); CARBON DIOXIDE 27 mmol/L (22-30); CHLORIDE 100 mmol/L (98-107); LIPASE 123.1 U/L (23-300); POTASSIUM 4.8 mmol/L (3.6-5.0); SODIUM 134.4 mmol/L (137-145); TOTAL PROTEIN 6.8 g/dL (6.3-8.2)
[2018-07-24 15:43] LABS: APPEARANCE,URINE CLEAR; BILIRUBIN,URINE NEGATIVE (NEGATIVE); COLOR,URINE STRAW; GLUCOSE, URINE >=500 mg/dL (NEGATIVE); KETONES,URINE NEGATIVE (NEGATIVE); LEUKOCYTE ESTERASE,URINE NEGATIVE (NEGATIVE); NITRITE,URINE NEGATIVE (NEGATIVE); PROTEIN,URINE 30 mg/dL (NEGATIVE); URINE SPECIFIC GRAVITY 1.025; UROBILINOGEN,URINE NEGATIVE mg/dL (<2.0)
[2018-07-24 15:50] LABS: GLUCOSE 534 mg/dL (75-110)
[2018-07-24] MEDS ORDERED: NORMAL SALINE 1000 ML 1,000 ML IV PRN (16:10)
[2018-07-24] MEDS ORDERED: INSULIN REG, HUMAN 100 UNIT/ML 3 ML VIAL (PYX) SUBCUT ONE (16:10)
--- NOTE | 2018-07-24 17:38 | RADIOLOGY REPORT (SQ) ---
EXAM DESCRIPTION: U/S ABDOMEN LTD W/DOPPLER COMPLETED DATE/TIME: 07/24/2018 4:34 pm REASON FOR STUDY: LUQ pain COMPARISON: None. TECHNIQUE: Dynamic and static grayscale images acquired of the abdomen and recorded on PACS. Additio nal selected color Doppler and spectral images recorded. LIMITATIONS: Obese patient, midline bowel gas FINDINGS: PANCREAS: Not visualized LIVER: Grossly normal size. No masses or biliary ductal dilatation. LIVER VASCULATURE: Normal directional flow of the main portal vein and hepatic veins. GALLBLADDER: Contracted, not well seen ULTRASOUND-DETECTED PATEL'S SIGN: Negative. INTRAHEPATIC DUCTS AND COMMON DUCT: CBD and intrahepatic ducts normal caliber. No filling defects. INFERIOR VENA CAVA: Not seen. AORTA: No aneurysm. RIGHT and LEFT KIDNEY: Normal size. Normal echogenicity. No solid or suspicious masses. No hydroneph rosis. No calcifications. PERITONEAL AND RIGHT PLEURAL SPACE: No ascites or effusions. SPLEEN: No other significant findings. IMPRESSION: CONTRACTED GALLBLADDER. LIMITED STUDY TECHNICAL DOCUMENTATION: JOB ID: [id number] [employer]- All Rights Reserved Reading location - IP/workstation name: [email or web address]
[2018-07-24 18:58] VITALS: BP 184/88
== END 2018-07-24 18:58 | disposition home or self-care (01) ==
LOC: ER 14:14
DX: R10.10 Upper abdominal pain, unspecified (principal); E11.65 Type 2 diabetes mellitus with hyperglycemia; G89.29 Other chronic pain; Z87.891 Personal history of nicotine dependence; J45.909 Unspecified asthma, uncomplicated; I10 Essential (primary) hypertension
CPT/HCPCS: 99284; 36415; 82962; 83690; 85025; 80053; 81001; 76705; 93976; A9270; J7030; J1815

== ENCOUNTER 2019-01-26 22:01 | Inpatient (IN) | payer MEDICARE, MEDICAID ==
[2019-01-27 01:08] LABS: ABSOLUTE LYMPHOCYTES (AUTO) 1.9 10^3/uL (0.5-4.7); ABSOLUTE MONOCYTES (AUTO) 1.3 10^3/uL (0.1-1.4); ABSOLUTE NEUT (AUTO) 11.7 10^3/uL (1.7-8.2); BASOPHILS % (AUTO) 0.3 % (0-2); EOSINOPHILS % (AUTO) 0.2 % (0-6); HEMATOCRIT 31.1 % (36.0-47.0); HEMOGLOBIN 10.8 g/dL (12.0-15.5); LYMPHOCYTES % (AUTO) 12.8 % (13-45); MEAN CORPUSCULAR HEMOGLOBIN 28.6 pg (27.0-33.4); MEAN CORPUSCULAR HGB CONC 34.8 g/dL (32.0-36.0); MEAN CORPUSCULAR VOLUME 82 fl (80-97); MONOCYTES % (AUTO) 8.9 % (3-13); PLATELET COUNT 284 10^3/uL (150-450); RED BLOOD COUNT 3.78 10^6/uL (3.72-5.28); RED CELL DISTRIBUTION WIDTH 13.2 % (11.5-14.0); SEGMENTED NEUTROPHILS % (AUTO) 77.8 % (42-78); TOTAL CELLS COUNTED % (AUTO) 100 %
[2019-01-27 01:27] LABS: ALANINE AMINOTRANSFERASE 37 U/L (9-52); ALBUMIN 3.4 g/dL (3.5-5.0); ALKALINE PHOSPHATASE 143 U/L (38-126); ANION GAP 12 (5-19); ASPARTATE AMINO TRANSFERASE 43 U/L (14-36); BILIRUBIN,DIRECT 0.8 mg/dL (0.0-0.4); BILIRUBIN,TOTAL 2.6 mg/dL (0.2-1.3); BLOOD UREA NITROGEN 23 mg/dL (7-20); CALCIUM 8.7 mg/dL (8.4-10.2); CARBON DIOXIDE 27 mmol/L (22-30); CHLORIDE 96 mmol/L (98-107); GLUCOSE 85 mg/dL (75-110); LIPASE 32.6 U/L (23-300); POTASSIUM 4.1 mmol/L (3.6-5.0); SODIUM 134.9 mmol/L (137-145); TOTAL PROTEIN 6.9 g/dL (6.3-8.2)
[2019-01-27] MEDS ORDERED: ONDANSETRON HCL INJ/PF 4 MG/2 ML SDV IV ONE (02:20)
[2019-01-27] MEDS ORDERED: NORMAL SALINE 1000 ML 1,000 ML IV ONE (02:20)
[2019-01-27] MEDS ORDERED: OXYCODONE-ACETAMINOPHEN 5-325 MG TABLET PO ONE (02:20)
--- NOTE | 2019-01-27 02:30 | ER Document Report ---
ED Medical Screen (RME) - General Chief Complaint: Abdominal Pain Stated Complaint: STOMACH PAIN,VOMITING Time Seen by Provider: 01/27/19 02:03 TRAVEL OUTSIDE OF THE [place] IN LAST 30 DAYS: No - HPI Notes: 01/27/19 02:27 Patient is a 44-year-old female past medical history of diabetes and hypertension who reports to the emergency department with a chief complaint of lower abdominal pain for 3 days. Patient reports that it feels like cramps and "pulling of her muscles "in her abdomen." Last menstrual period started 2 days ago. Complains of nausea. Decreased appetite. Denies diarrhea or urinary sy mptoms. Denies constipation. - Related Data Allergies/Adverse Reactions: No Known Allergies Allergy (Verified 01/26/19 22:01) Past Medical History - Past Medical History Cardiac Medical History: Reports: Hx Hypercholesterolemia, Hx Hypertension Denies: Hx Coronary Artery Disease, Hx Heart Attack Pulmonary Medical History: Reports: Hx Asthma, Hx Sleep Apnea - She wears CPAP at home Denies: Hx Bronchitis, Hx COPD, Hx Pneumonia Neurological Medical History: Denies: Hx Cerebrovascular Accident, Hx Seizures Endocrine Medical History: Reports: Hx Diabetes Mellitus Type 2 Renal/ Medical History: Denies: Hx Peritoneal Dialysis Musculoskeltal Medical History: Denies Hx Arthritis, Denies Hx Fibromyalgia, Reports Hx Musculoskeletal Deformity - Carpal tunnel and heel spurs Psychiatric Medical History: Denies: Hx Depression Past Surgical History: Reports: Hx Section - Twice, Hx Orthopedic Surge ry - Heel spur surgery, bilateral carpal tunnel surgery, left BLK amputation, Other - 2 c section, left bone spur removal, left foot surg, R eye surg as child - Immunizations Immunizations up to date: Yes Hx Diphtheria, Pertussis, Tetanus Vaccination: No History of Influenza Vaccine for 07/2017 - 12/2017 Season: Yes Influenza Administration Date for 07/2017 - 12/2017 Season: 07/19/17 Physical Exam - Vital signs Vitals: Temp Pulse Resp BP Pulse Ox 99.0 F 110 H 18 162/77 H 98 01/26/19 23:01 01/26/19 23:01 01/26/19 23:01 01/26/19 23:01 01/26/19 23:01 - Abdominal Inspection: Normal Distension: No distension Bowel sounds: Normal Tenderness: Tender - Mildly tender to lower abdomen. Location of pain nonspecific. Course - Re-evaluation Re-evalutation: 01/27/19 02:31 I have greeted and performed a rapid initial assessment of this patient. A comprehensive ED assessment and evaluation of the patient, analysis of test results and completion of the medical decision making process will be conducted by additional ED providers. - Vital Signs Vital signs: Temp Pulse Resp BP Pulse Ox 99.0 F 110 H 18 162/77 H 98 01/26/19 23:01 01/26/19 23:01 01/26/19 23:01 01/26/19 23:01 01/26/19 23:01 - Laboratory Result Diagrams: 01/27/19 00:50 01/27/19 00:50 Laboratory results interpreted by me: 01/27/19 01/27/19 00:50 00:50 WBC 15.0 H Hgb 10.8 L Hct 31.1 L Lymphocytes % 12.8 L Absolute Neutrophils 11.7 H Sodium 134.9 L Chloride 96 L BUN 23 H Creatinine 1.84 H Est GFR ( Amer) 36 L Est GFR (Non-Af Amer) 30 L Total Bilirubin 2.6 H Direct Bilirubin 0.8 H AST 43 H Alkaline Phosphatase 143 H Albumin 3.4 L
[2019-01-27 03:05] LABS: BILIRUBIN,URINE NEGATIVE (NEGATIVE); GLUCOSE, URINE NEGATIVE (NEGATIVE); KETONES,URINE TRACE mg/dL (NEGATIVE); LEUKOCYTE ESTERASE,URINE MODERATE (NEGATIVE); NITRITE,URINE NEGATIVE (NEGATIVE); PROTEIN,URINE 100 mg/dL (NEGATIVE); URINE SPECIFIC GRAVITY 1.018
[2019-01-27 03:07] LABS: APPEARANCE,URINE TURBID; COLOR,URINE RED
[2019-01-27] MEDS ORDERED: MORPHINE SULFATE 10 MG/ML INJ IV ONE (03:40)
--- NOTE | 2019-01-27 03:44 | ER Document Report ---
Addendum entered and electronically signed by GIULIA DEL ROSARIO FNP 01/27/19 09:31: Discharge - Discharge Clinical Impression: Abdominal pain Qualifiers: Abdominal location: unspecified location Qualified Code(s): R10.9 - Unspecified abdominal pain Condition: Fair Disposition: ADMITTED INPATIENT Admitting Provider: [facility] Unit Admitted: Post Referrals: KETAN VALLE DO [Primary Care Provider] - Follow up as needed Addendum entered and electronically signed by GIULIA DEL ROSARIO FNP 01/27/19 09:29: Course - Re-evaluation Re-evalutation: 01/27/19 09:23 Patient has a pyosalphinx or hydrosalpinx noted on her transvaginal ultrasound. 01/27/19 09:[address] snider in regards to this visit. The patient will be admitted to the [facility] for IV antibiotics. I have informed the patient in regards to hospital admission. - Vital Signs Vital signs: Temp Pulse Resp BP Pulse Ox 98.4 F 100 18 142/68 H 99 01/27/19 08:25 01/27/19 08:25 01/27/19 08:25 01/27/19 08:25 01/27/19 08:25 - Laboratory Result Diagrams: 01/27/19 00:50 01/27/19 00:50 Laboratory results interpreted by me: 01/27/19 01/27/19 01/27/19 00:50 00:50 00:50 WBC 15.0 H Hgb 10.8 L Hct 31.1 L Lymphocytes % 12.8 L Absolute Neutrophils 11.7 H Sodium 134.9 L Chloride 96 L BUN 23 H Creatinine 1.84 H Est GFR ( Amer) 36 L Est GFR (Non-Af Amer) 30 L Total Bilirubin 2.6 H Direct Bilirubin 0.8 H AST 43 H Alkaline Phosphatase 143 H Albumin 3.4 L Urine Protein 100 H Urine Ketones TRACE H Urine Blood LARGE H Urine Urobilinogen 4.0 H Ur Leukocyte Esterase MODERATE H Original Note: ED GI/ - General Chief Complaint: Abdominal Pain Stated Complaint: STOMACH PAIN,VOMITING Time Seen by Provider: 01/27/19 02:03 Primary Care Provider: KETAN VALLE DO [Primary Care Provider] - Follow up as needed Mode of Arrival: Ambulatory Information source: Patient TRAVEL OUTSIDE OF THE [place] IN LAST 30 DAYS: No - HPI Notes: 01/27/19 03:44 Patient is a 44-year-old female past medical history of diabetes and hypertension who reports to the emergency department with a chief complaint of l ower abdominal pain for 3 days. Patient reports that it feels like cramps and "pulling of her muscles "in her abdomen." Last menstrual period started 2 days ago. Complains of nausea. Decreased appetite. Denies diarrhea or urinary symptoms. Denies constipation. - Related Data Allergies/Adverse Reactions: No Known Allergies Allergy (Verified 01/26/19 22:01) Past Medical History - General Information source: Patient - Social History Smoking Status: Never Smoker Cigarette use (# per day): No Chew tobacco use (# tins/day): No Smoking Education Provided: No Frequency of alcohol use: None Drug Abuse: None Family History: CAD, DM, Hyperlipidemia, Hypertension - Past Medical History Cardiac Medical History: Reports: Hx Hypercholesterolemia, Hx Hypertension Denies: Hx Coronary Artery Disease, Hx Heart Attack Pulmonary Medical History: Reports: Hx Asthma, Hx Sleep Apnea - She wears CPAP at home Denies: Hx Bronchitis, Hx COPD, Hx Pneumonia Neurological Medical History: Denies: Hx Cerebrovascular Accident, Hx Seizures Endocrine Medical History: Reports: Hx Diabetes Mellitus Type 2 Renal/ Medical History: Denies: Hx Peritoneal Dialysis Musculoskeletal Medical History: Denies Hx Arthritis, Denies Hx Fibromyalgia, Reports Hx Musculoskeletal Deformity - Carpal tunnel and heel spurs Psychiatric Medical History: Denies: Hx Depression Past Surgical History: Reports: Hx Section - Twice, Hx Orthopedic Surgery - Heel spur surgery, bilateral carpal tunnel surgery, left BLK amputation, Other - 2 c section, left bone spur removal, left foot surg, R eye surg as child - Immunizations Immunizations up to date: Yes Hx Diphtheria, Pertussis, Tetanus Vaccination: No Physical Exam - Vital signs Vitals: Temp Pulse Resp BP Pulse Ox 99.0 F 110 H 18 162/77 H 98 01/26/19 23:01 01/26/19 23:01 01/26/19 23:01 01/26/19 23:01 01/26/19 23:01 - Notes Notes: PHYSICAL EXAMINATION: GENERAL: Well-appearing, well-nourished and in no acute distress. HEAD: Atraumatic, normocephalic. EYES: Pupils equal round and reactive to light, extraocular movements intact, sclera anicteric, conjunctiva are normal. ENT: nares patent, oropharynx clear without exudates. Moist mucous membranes. NECK: Normal range of motion, supple without lymphadenopathy LUNGS: Breath sounds clear to auscultation bilaterally and equal. No wheezes rales or rhonchi. HEART: Regular rate and rhythm without murmurs ABDOMEN: Obese. Soft, mildy tender throughout abdomen with increased tenderness to lower abdomen, normoactive bowel sounds. No guarding, no rebound. No masses appreciated. No CVA tenderness tenderness noted. EXTREMITIES: Normal range of motion, no pitting or edema. Left BKA. NEUROLOGICAL: No focal neurological deficits. Moves all extremities spontaneously and on command. PSYCH: Normal mood, normal affect. SKIN: Warm, Dry, normal turgor, no rashes or lesions noted. Course - Re-evaluation Re-evalutation: 01/27/19 Lab work showed a slightly elevated BUN and creatinine, elevated white count, urine was positive for UTI. After patient was brought back into the room, thorough abdominal assessment was performed and patient was tender throughout abdomen but worse in the lower abdomen. Patient reports that after Percocet her pain has only decreased to 4 out of 5. Due to the findings additional testing to be ordered. 01/27/19 06:[address] findings patient in need of ultrasound to rule out possible abscess. Pelvic examination also needed. Updated patient on findings and aware of plan at this time. Patient denies pain, denies nausea, and is in no acute distress at the moment. 01/27/19 07:05 Pelvic exam was completed on patient, patient tolerated well and denied pain throughout. She does report that she is sexually active, with one partner, and does use protection. 01/27/19 08:09 Patient in ultrasound. Handoff report given to Giulia STEWART. - Vital Signs Vital signs: Temp Pulse Resp BP Pulse Ox 99.0 F 110 H 18 162/77 H 98 01/26/19 23:01 01/26/19 23:01 01/26/19 23:01 01/26/19 23:01 01/26/19 23:01 - Laboratory Result Diagrams: 01/27/19 00:50 01/27/19 00:50 Laboratory results interpreted by me: 01/27/19 01/27/19 01/27/19 00:50 00:50 00:50 WBC 15.0 H Hgb 10.8 L Hct 31.1 L Lymphocytes % 12.8 L Absolute Neutrophils 11.7 H Sodium 134.9 L Chloride 96 L BUN 23 H Creatinine 1.84 H Est GFR ( Amer) 36 L Est GFR (Non-Af Amer) 30 L Total Bilirubin 2.6 H Direct Bilirubin 0.8 H AST 43 H Alkaline Phosphatase 143 H Albumin 3.4 L Urine Protein 100 H Urine Ketones TRACE H Urine Blood LARGE H Urine Urobilinogen 4.0 H Ur Leukocyte Esterase MODERATE H - Diagnostic Test Radiology reviewed: Reports reviewed Radiology results interpreted by me: 01/27/19 06:[address] report, impression shows complex left adnexal with mild adjacent stranding. This may represent a complex cyst or abscess further evaluation with a pelvic ultrasound was suggested. Stranding adjacent to the distal left ureter, which may be due to infectious or inflammatory process. If this may be secondary to a left adnexal mass or from a recently passed stone or UTI. Procedures - Pelvic Exam Pelvic exam Time completed: 06:45 Cultures obtained: Yes Wet prep obtained: Yes Foreign body removed: No Witnessed by: RN Notes: 01/27/19 07:03 Pelvic exam completed on patient, patient tolerated pelvic exam well and denied pain throughout. Patient is on menstrual cycle, blood noted in the vagina, no blood clots, no pus or discharge noted. Discharge - Discharge Clinical Impression: Abdominal pain Qualifiers: Abdominal location: unspecified location Qualified Code(s): R10.9 - Unspecified abdominal pain Condition: Stable Disposition: HOME, SELF-CARE Referrals: KETAN VALLE DO [Primary Care Provider] - Follow up as needed
--- NOTE | 2019-01-27 06:04 | RADIOLOGY REPORT (SQ) ---
EXAM DESCRIPTION: CT ABDOMEN PELVIS WITHOUT IV CONTRAST COMPLETED DATE/TME: 01/27/2019 03:39 CLINICAL HISTORY: 44 years, Female, lower abdominal pain, UTI, elevated Creat COMPARISON: None. TECHNIQUE: Axial CT images of the abdomen and pelvis were obtained without contrast. Sagittal and coronal reformats were performed. [facility] [id number] Images stored on PACS. All CT scanners at this facility use dose modulation, iterative reconstruction, and/or weight based dosing when appropriate to reduce radiation dose to as low as reasonably achievable (ALARA). [facility]: Dose Right [facility]: CareDose [facility]: Dose Right [facility]: Teradose 4D [facility]: Continuing Education Records & Resources LIMITATIONS: None. FINDINGS: The lung bases are clear. The liver, gallbladder, pancreas, spleen, and adrenal glands are unremarkable. Both kidneys appear unremarkable. There is no evidence of urolithiasis or hydronephrosis. There is mild stranding adjacent to the distal left ureter (axial images 64-70). There is no intraperitoneal free air. There is a trace amount of free fluid.. There is no lymphadenopathy. The stomach and small bowel and appendix appear unremarkable. The colon is unremarkable. The urinary bladder and uterus appear unremarkable. There is a heterogenous left adnexal mass that measures 5.0 x 5.1 cm with mild adjacent stranding (axial images 68-75). There are no lytic or blastic bone lesions. IMPRESSION: Complex left adnexal mass with mild adjacent stranding. This may represent a complex cyst or abscess. Further evaluation with a pelvic ultrasound may be useful. Mild stranding adjacent to the distal left ureter, which may be due to an infectious/inflammatory process. This may be secondary to the left adnexal mass or from a recently passed stone or UTI. TECHNICAL DOCUMENTATION: Quality ID # [id number]: Final reports with documentation of one or more dose reduction techniques (e.g., Automated exposure control, adjustment of the mA and/or kV according to patient size, use of iterative reconstruction technique) copyright 2011 [employer]- All Rights Reserved
[2019-01-27] MEDS ORDERED: CEFTRIAXONE 1 GM/D5W RTU 1 GM/50 ML RTUPB IV ONE ×2 (06:07→06:54)
[2019-01-27 07:10] LABS: BACTERIA (WET MOUNT) 4+ BACTERIA SEEN; RBCS (WET MOUNT) 4+ RBCS SEEN; T.VAGINALIS (WET MOUNT) NO TRICHOMONAS SEEN; WBCS (WET MOUNT) 2+ WBCS SEEN; YEAST (WET MOUNT) NO YEAST SEEN
[2019-01-27 08:42] LABS: CHLAM PCR NOT DETECTED (NOT DETECT); GON PCR NOT DETECTED (NOT DETECT)
--- NOTE | 2019-01-27 09:18 | RADIOLOGY REPORT (SQ) ---
EXAM DESCRIPTION: U/S NON OB PEL TV W/DOPPLER COMPLETED DATE/TIME: 01/27/2019 8:34 am REASON FOR STUDY: R/O ABSCESS PER CT READ, LOWER ABDOMINAL PAIN COMPARISON: None. TECHNIQUE: Dynamic and static grayscale images acquired of the pelvis via transabdominal and transva ginal approach and recorded on PACS. Additional selected color Doppler and spectral images recorded. LIMITATIONS: None. FINDINGS: UTERUS: Contour normal. No mass. ENDOMETRIAL STRIPE: No focal or generalized thickening. No masses. CERVIX: No nabothian cysts. RIGHT OVARY AND DOPPLER: Normal size. No worrisome masses. Normal arterial vascular flow without evid ence for torsion. LEFT OVARY AND DOPPLER: Fluid in the fallopian tube. Normal arterial vascular flow in the ovary. FREE FLUID: Small amount. OTHER: No other significant finding. MEASUREMENTS: UTERUS: 14 x 6 x 4.5 cm ENDOMETRIAL STRIPE: 8 mm RIGHT OVARY: 2.7 x 1.9 x 1.7 cm LEFT OVARY: 4.7 x 4.5 x 3.2 cm IMPRESSION: Left hydrosalpinx or pyosalpinx. Correlate with pelvic exam. TECHNICAL DOCUMENTATION: JOB ID: [id number] [employer]- All Rights Reserved Rev-03/05 Reading location - IP/workstation name: [email or web address]
--- NOTE | 2019-01-27 12:03 | PDOC H&P ---
History of Present Illness Admission Date/PCP: 01/27/19 09:52 KETAN VALLE DO Patient complains of: Lower abdominal pain which started 3-4 days ago History of Present Illness: RUTH WOOD is a 44 year old presented to [facility] ED complaining of low abdominal pain which started 3-4 days ago. Patient denies fever/chills. Patient was having some nausea secondary to the pain. Patient denies vaginal discharge and foul odor. He is currently sexually active. Her last menstrual cycle started on January 25. She is currently bleeding. Past Medical History LMP: now Menses: 01/25/2019 Gynecological Infection: No 1 Baby 1 Delivery: : Low Cervical, Transverse 2 Baby 2 Delivery: : Low Cervical, Transverse Cardiac Medical History: Reports: Hyperlipidema, Hypertension Denies: Coronary Artery Disease, Myocardial Infarction Pulmonary Medical History: Reports: Asthma, Sleep Apnea - She wears CPAP at home Denies: Bronchitis, Chronic Obstructive Pulmonary Disease (COPD), Pneumonia Neurological Medical History: Denies: Seizures Endocrine Medical History: Reports: Diabetes Mellitus Type 2 Musculoskeltal Medical History: Denies: Arthritis, Fibromyalgia Psychiatric Medical History: Denies: Depression Past Surgical History Past Surgical History: Reports: Section - Twice, Orthopedic Surgery - Heel spur surgery, bilateral carpal tunnel surgery, left BLK amputation, Other - 2 c section, left bone spur removal, left foot surg, R eye surg as child Social History Lives with: Family Smoking Status: Former Smoker Cigarettes Packs Per Day: 4 Number of Years Smokin Frequency of Alcohol Use: None Hx Recreational Drug Use: Yes Drugs: Marijuana Hx Prescription Drug Abuse: No - Advance Directive Resuscitation Status: Full Code Family History Family History: CAD, DM, Hyperlipidemia, Hypertension Parental Family History Reviewed: Yes - Not applicable Children Family History Reviewed: NA Sibling(s) Family History Reviewed.: NA Medication/Allergy Home Medications: Aspirin [Adult Low Dose Aspirin EC] 81 mg PO DAILY 11/20/17 Cetirizine HCl [Zyrtec 10 mg Tablet] 10 mg PO DAILY 11/20/17 Ferrous Sulfate [Feosol 325 mg Tablet] 325 mg PO TID 11/20/17 Furosemide [Lasix 20 mg Tablet] 20 mg PO DAILYP PRN 11/20/17 Insulin Detemir [Levemir Flextouch] 70 units SQ DAILY 11/20/17 Lisinopril/Hydrochlorothiazide [Zestoretic 20-25 mg Tablet] 1 tab PO DAILY 11/20/17 Pregabalin [Lyrica] 150 mg PO Q8HP PRN 11/20/17 Simvastatin [Zocor 20 mg Tablet] 20 mg PO QHS 11/20/17 Ascorbic Acid [Vitamin C 500 mg Tablet] 500 mg PO BID tablet 11/24/17 Multivitamin [Tab-A-Alana (Multiple Vitamin) Tablet] 1 tab PO DAILY tablet 11/24/17 Dulaglutide [Trulicity] 1.5 mg SQ TH@1000 01/26/18 Insulin Lispro [Humalog Insulin 100 Unit/1 ml 3 ml Vial] 0 unit SUBCUT .SLD SCALE 01/26/18 Oxycodone HCl [Oxy-Ir 5 mg Tablet] 15 mg PO Q6HP PRN 01/26/18 Albuterol Sulfate [Proair Hfa Inhalation Aerosol 8.5 gm Mdi] 2 puff IH Q6HP PRN 01/27/19 Clotrimazole [Athletic Foot Cream] 1 applic TP BID 01/27/19 Ranitidine HCl [Zantac 150 mg Tablet] 150 mg PO BID 01/27/19 Varenicline Tartrate [Chantix 1 Mg Tablet] 1 mg PO BIDPCBS 01/27/19 Allergies/Adverse Reactions: No Known Allergies Allergy (Verified 01/26/19 22:01) Physical Exam - Physical Exam Vital Signs: Temp Pulse Resp BP Pulse Ox 98.7 F 99 18 151/84 H 100 01/27/19 10:51 01/27/19 10:51 01/27/19 10:51 01/27/19 10:51 01/27/19 10:51 Intake & Output 01/26/19 01/27/19 01/28/19 06:59 06:59 06:59 Intake Total 1000 100 Balance 1000 100 Weight 137.2 kg General appearance: PRESENT: mild distress Respiratory exam: PRESENT: clear to auscultation mary Cardiovascular exam: PRESENT: RRR GI/Abdominal exam: PRESENT: normal bowel sounds, soft - Lower abdominal tenderness Extremities exam: ABSENT: calf tenderness, clubbing, full ROM, joint swelling, pedal edema, tenderness, +1 edema, +2 edema, other Neurological exam: PRESENT: alert, awake, oriented to person, oriented to place, oriented to time Result Laboratory Results: 01/27/19 00:50 01/27/19 00:50 01/27/19 01/27/19 01/27/19 00:50 00:50 00:50 WBC 15.0 H RBC 3.78 Hgb 10.8 L Hct 31.1 L MCV 82 MCH 28.6 MCHC 34.8 RDW 13.2 Plt Count 284 Seg Neutrophils % 77.8 Lymphocytes % 12.8 L Monocytes % 8.9 Eosinophils % 0.2 Basophils % 0.3 Absolute Neutrophils 11.7 H Absolute Lymphocytes 1.9 Absolute Monocytes 1.3 Absolute Eosinophils 0.0 Absolute Basophils 0.0 Sodium 134.9 L Potassium 4.1 Chloride 96 L Carbon Dioxide 27 Anion Gap 12 BUN 23 H Creatinine 1.84 H Est GFR ( Amer) 36 L Est GFR (Non-Af Amer) 30 L Glucose 85 Calcium 8.7 Total Bilirubin 2.6 H AST 43 H ALT 37 Alkaline Phosphatase 143 H Total Protein 6.9 Albumin 3.4 L Lipase 32.6 Urine Color RED Urine Appearance TURBID Urine pH 5.0 Ur Specific [place] 1.018 Urine Protein 100 H Urine Glucose (UA) NEGATIVE Urine Ketones TRACE H Urine Blood LARGE H Urine Nitrite NEGATIVE Ur Leukocyte Esterase MODERATE H Urine WBC (Auto) >182 Urine RBC (Auto) >182 Impressions: Abdomen/Pelvis CT 01/27/19 03:39 IMPRESSION: Complex left adnexal mass with mild adjacent stranding. This may represent a complex cyst or abscess. Further evaluation with a pelvic ultrasound may be useful. Mild stranding adjacent to the distal left ureter, which may be due to an infectious/inflammatory process. This may be secondary to the left adnexal mass or from a recently passed stone or UTI. TECHNICAL DOCUMENTATION: Quality ID # 436: Final reports with documentation of one or more dose reduction techniques (e.g., Automated exposure control, adjustment of the mA and/or kV according to patient size, use of iterative reconstruction technique) copyright 2011 [employer]- All Rights Reserved Transvaginal US 01/27/19 06:07 IMPRESSION: Left hydrosalpinx or pyosalpinx. Correlate with pelvic exam. 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 Qualified Code(s): Z89.512 - Acquired absence of left leg below knee (5) Type 2 diabetes mellitus, with long-term current use of insulin Qualifiers: Diabetes mellitus complication status: without complication Qualified Code(s): E11.9 - Type 2 diabetes mellitus without complications; Z79.4 - intermodal dispatcher (current) use of insulin Is this a current diagnosis for this admission?: Yes (6) Chronic hypertension Is this a current diagnosis for this admission?: Yes (7) Leukocytosis Is this a current diagnosis for this admission?: Yes (8) Anemia Qualifiers: Anemia type: iron deficiency Iron deficiency anemia type: inadequate dietary iron intake Qualified Code(s): D50.8 - Other iron deficiency anemias - Time Critical Time spent with patient: 15-24 minutes Anticipated discharge: Home Within: within 48 hours - Inpatient Certification Based on my medical assessment, after consideration of the patient's comorbidi ties, presenting symptoms, or acuity I expect that the services needed warrant INPATIENT care.: Yes I certify that my determination is in accordance with my understanding of Jennifer martines's requirements for reasonable and necessary INPATIENT services [42 CFR 412.3e].: Yes Medical Necessity: Need for Pain Control, Need for IV Antibiotics - Plan Summary Plan Summary: 1. Pain control 2. IV antibiotics 3. Sliding scale insulin
[2019-01-27] MEDS ORDERED: DOXYCYCLINE HYCLATE INJ 100 MG VIAL IV SCH (12:13)
[2019-01-27] MEDS ORDERED: HYDROMORPHONE HCL INJ/PF 2 MG/ML AMPULE IV ONE (12:15)
[2019-01-27] MEDS: FAMOTIDINE INJ/PF 20 MG/2 ML SDV IV SCH (13:18)
[2019-01-27] MEDS ORDERED: DEXTROSE 40% GEL 15 GM TUBE X 2 PO PRN (14:00)
[2019-01-27] MEDS ORDERED: DEXTROSE 50%-WATER SYRINGE 25 GM/50 ML DOSE IV PRN (14:00)
[2019-01-27] MEDS ORDERED: GLUCAGON,HUMAN RECOMB 1 MG INJ IM PRN (14:00)
[2019-01-27] MEDS ORDERED: DEXTROSE 40% GEL 15 GM TUBE PO PRN (14:00)
[2019-01-27] MEDS: CEFTRIAXONE SODIUM 1,000 MG in DEXTROSE 5%-WATER 50 ML IV SCH (14:41)
[2019-01-27] MEDS ORDERED: ONDANSETRON HCL INJ/PF 4 MG/2 ML SDV IV PRN (15:19)
[2019-01-27] MEDS ORDERED: PROMETHAZINE HCL INJ 25 MG/1 ML VIAL IV PRN (15:20)
[2019-01-27] MEDS ORDERED: PREGABALIN 25 MG CAPSULE PO SCH (17:00)
[2019-01-27] MEDS ORDERED: PREGABALIN 100 MG CAPSULE PO SCH (17:00)
[2019-01-27] MEDS: PREGABALIN 75 MG CAPSULE PO SCH ×2 (17:31→22:58)
[2019-01-27] MEDS: DOXYCYCLINE HYCLATE 100 MG in DEXTROSE 5%-WATER 250 ML IV SCH (17:32)
[2019-01-27] MEDS: INSULIN LISPRO 100 UNIT/ML 3 ML VIAL SUBCUT SCH ×2 (17:43→23:00)
[2019-01-27] MEDS ORDERED: CEFTRIAXONE INJ 1000 MG VIAL IV SCH (19:00)
[2019-01-27] MEDS: INSULIN GLARGINE,HUM.REC.ANLOG 1,000 UNIT/10 ML VIAL SUBCUT SCH (22:59)
[2019-01-28] MEDS: IBUPROFEN 800 MG TABLET PO PRN ×2 (03:46→22:57)
[2019-01-28] MEDS: CEFTRIAXONE SODIUM 1,000 MG in DEXTROSE 5%-WATER 50 ML IV SCH ×3 (06:26→22:27)
[2019-01-28] MEDS: PREGABALIN 75 MG CAPSULE PO SCH ×2 (06:29→15:33)
[2019-01-28] MEDS: FAMOTIDINE INJ/PF 20 MG/2 ML SDV IV SCH ×2 (06:30→09:22)
[2019-01-28] MEDS: DOXYCYCLINE HYCLATE 100 MG in DEXTROSE 5%-WATER 250 ML IV SCH ×2 (07:25→17:30)
[2019-01-28 07:34] LABS: ABSOLUTE BASOPHILS # (AUTO) 0.1 10^3/uL (0.0-0.2); ABSOLUTE EOSINOPHILS # (AUTO) 0.1 10^3/uL (0.0-0.6); ABSOLUTE LYMPHOCYTES (AUTO) 1.9 10^3/uL (0.5-4.7); ABSOLUTE MONOCYTES (AUTO) 1.1 10^3/uL (0.1-1.4); ABSOLUTE NEUT (AUTO) 9.8 10^3/uL (1.7-8.2); BASOPHILS % (AUTO) 0.4 % (0-2); EOSINOPHILS % (AUTO) 0.5 % (0-6); HEMATOCRIT 26.3 % (36.0-47.0); HEMOGLOBIN 9.2 g/dL (12.0-15.5); LYMPHOCYTES % (AUTO) 14.9 % (13-45); MEAN CORPUSCULAR HEMOGLOBIN 28.2 pg (27.0-33.4); MEAN CORPUSCULAR HGB CONC 34.8 g/dL (32.0-36.0); MEAN CORPUSCULAR VOLUME 81 fl (80-97); MONOCYTES % (AUTO) 8.6 % (3-13); PLATELET COUNT 255 10^3/uL (150-450); RED BLOOD COUNT 3.25 10^6/uL (3.72-5.28); RED CELL DISTRIBUTION WIDTH 12.9 % (11.5-14.0); SEGMENTED NEUTROPHILS % (AUTO) 75.6 % (42-78); TOTAL CELLS COUNTED % (AUTO) 100 %; WHITE BLOOD COUNT 12.9 10^3/uL (4.0-10.5)
[2019-01-28 07:47] LABS: ALANINE AMINOTRANSFERASE 33 U/L (9-52); ALBUMIN 2.7 g/dL (3.5-5.0); ALKALINE PHOSPHATASE 124 U/L (38-126); ANION GAP 8 (5-19); ASPARTATE AMINO TRANSFERASE 28 U/L (14-36); BILIRUBIN,DIRECT 0.5 mg/dL (0.0-0.4); BILIRUBIN,TOTAL 1.2 mg/dL (0.2-1.3); BLOOD UREA NITROGEN 24 mg/dL (7-20); CALCIUM 8.1 mg/dL (8.4-10.2); CARBON DIOXIDE 26 mmol/L (22-30); CHLORIDE 101 mmol/L (98-107); GLUCOSE 126 mg/dL (75-110); POTASSIUM 3.5 mmol/L (3.6-5.0); SODIUM 135.1 mmol/L (137-145); TOTAL PROTEIN 5.9 g/dL (6.3-8.2)
[2019-01-28] MEDS: INSULIN LISPRO 100 UNIT/ML 3 ML VIAL SUBCUT SCH ×4 (09:21→22:53)
[2019-01-28] MEDS: LISINOPRIL 10 MG TABLET PO SCH (09:49)
[2019-01-28] MEDS: HYDROMORPHONE HCL INJ/PF 2 MG/ML AMPULE IV PRN ×2 (09:50→17:29)
[2019-01-28] MEDS ORDERED: LISINOPRIL 10 MG TABLET PO SCH (15:24)
--- NOTE | 2019-01-28 15:55 | PDOC PROGRESS REPORT ---
Subjective Progress Note for:: 01/28/19 Reason For Visit: ABDOMINAL PAIN pelvic abscess found on CT/pelvic sono Physical Exam - Physical Exam Vital Signs: Temp Pulse Resp BP Pulse Ox 98.1 F 76 17 157/59 H 100 01/28/19 11:48 01/28/19 11:48 01/28/19 11:48 01/28/19 11:48 01/28/19 11:48 Intake & Output 01/27/19 01/28/19 01/29/19 06:59 06:59 06:59 Intake Total 1000 400 200 Balance 1000 400 200 Weight 137.2 kg 137.5 kg General appearance: PRESENT: no acute distress, cooperative, obese GI/Abdominal exam: PRESENT: soft, tenderness - mildly tender. patient indicates improvement from yesterday Result Laboratory Results: 01/28/19 07:24 01/28/19 07:24 01/28/19 01/28/19 07:24 07:24 WBC 12.9 H RBC 3.25 L Hgb 9.2 L Hct 26.3 L MCV 81 MCH 28.2 MCHC 34.8 RDW 12.9 Plt Count 255 Seg Neutrophils % 75.6 Lymphocytes % 14.9 Monocytes % 8.6 Eosinophils % 0.5 Basophils % 0.4 Absolute Neutrophils 9.8 H Absolute Lymphocytes 1.9 Absolute Monocytes 1.1 Absolute Eosinophils 0.1 Absolute Basophils 0.1 Sodium 135.1 L Potassium 3.5 L Chloride 101 Carbon Dioxide 26 Anion Gap 8 BUN 24 H Creatinine 1.46 H Est GFR ( Amer) 47 L Est GFR (Non-Af Amer) 39 L Glucose 126 H Calcium 8.1 L Total Bilirubin 1.2 AST 28 ALT 33 Alkaline Phosphatase 124 Total Protein 5.9 L Albumin 2.7 L 01/27/19 02:58 Clean Catch Midstream Urine Culture - Final Mixed Urogenital Lilibeth Impressions: Abdomen/Pelvis CT 01/27/19 03:39 IMPRESSION: Complex left adnexal mass with mild adjacent stranding. This may represent a complex cyst or abscess. Further evaluation with a pelvic ultrasound may be useful. Mild stranding adjacent to the distal left ureter, which may be due to an infectious/inflammatory process. This may be secondary to the left adnexal mass or from a recently passed stone or UTI. TECHNICAL DOCUMENTATION: Quality ID # 436: Final reports with documentation of one or more dose reduction techniques (e.g., Automated exposure control, adjustment of the mA and/or kV according to patient size, use of iterative reconstruction technique) copyright 2011 [email or web address]- All Rights Reserved Transvaginal US 01/27/19 06:07 IMPRESSION: Left hydrosalpinx or pyosalpinx. Correlate with pelvic exam. Assessment & Plan - Diagnosis (2) Abdominal pain Qualifiers: Abdominal location: lower abdomen, unspecified Qualified Code(s): R10.30 - Lower abdominal pain, unspecified Is this a current diagnosis for this admission?: Yes (3) Hydrosalpinx Is this a current diagnosis for this admission?: Yes (4) Leukocytosis Qualifiers: Leukocytosis type: unspecified Qualified Code(s): D72.829 - Elevated white blood cell count, unspecified Is this a current diagnosis for this admission?: Yes (5) Acute pain Is this a current diagnosis for this admission?: Yes - Time Time Spent with patient: Less than 15 minutes Anticipated discharge: Home Within: within 48 hours - Inpatient Certification Based on my medical assessment, after consideration of the patient's comorbidities, presenting symptoms, or acuity I expect that the services needed warrant INPATIENT care.: Yes I certify that my determination is in accordance with my understanding of Medicare's requirements for reasonable and necessary INPATIENT services [42 CFR 412.3e].: Yes Medical Necessity: Need For IV Fluids, Need for Pain Control, Need for IV Antibiotics - Plan Summary Plan Summary: patient's IV access was not obtained until late last evening. She will need at least 48 hours of IV antibiotics therefore discharge possibly late tomorrow vs Thursday AM. Continue current antibiotics and pain management. Will transition to PO pain meds tomorrow.
[2019-01-28] MEDS ORDERED: FUROSEMIDE 20 MG TABLET PO PRN (18:59)
[2019-01-28] MEDS ORDERED: (PENDING PHARMACY ID) (Dulaglutide [Trulicity] 1.5 MG) SUBCUT SCH (19:15)
[2019-01-28] MEDS: SIMVASTATIN 10 MG TABLET PO SCH (22:28)
[2019-01-28] MEDS: FAMOTIDINE 20 MG TABLET PO SCH (22:29)
[2019-01-28] MEDS: INSULIN GLARGINE,HUM.REC.ANLOG 1,000 UNIT/10 ML VIAL SUBCUT SCH (22:55)
[2019-01-29] MEDS: HYDROMORPHONE HCL INJ/PF 2 MG/ML AMPULE IV PRN ×2 (01:03→15:24)
[2019-01-29] MEDS: DOXYCYCLINE HYCLATE 100 MG in DEXTROSE 5%-WATER 250 ML IV SCH ×2 (06:00→18:10)
[2019-01-29 07:03] LABS: ABSOLUTE BASOPHILS # (AUTO) 0.1 10^3/uL (0.0-0.2); ABSOLUTE EOSINOPHILS # (AUTO) 0.1 10^3/uL (0.0-0.6); ABSOLUTE LYMPHOCYTES (AUTO) 2.1 10^3/uL (0.5-4.7); ABSOLUTE MONOCYTES (AUTO) 0.9 10^3/uL (0.1-1.4); ABSOLUTE NEUT (AUTO) 8.4 10^3/uL (1.7-8.2); BASOPHILS % (AUTO) 0.6 % (0-2); EOSINOPHILS % (AUTO) 1.1 % (0-6); HEMATOCRIT 30.5 % (36.0-47.0); HEMOGLOBIN 10.4 g/dL (12.0-15.5); LYMPHOCYTES % (AUTO) 17.9 % (13-45); MEAN CORPUSCULAR HEMOGLOBIN 27.8 pg (27.0-33.4); MEAN CORPUSCULAR HGB CONC 33.9 g/dL (32.0-36.0); MEAN CORPUSCULAR VOLUME 82 fl (80-97); MONOCYTES % (AUTO) 7.7 % (3-13); PLATELET COUNT 311 10^3/uL (150-450); RED BLOOD COUNT 3.72 10^6/uL (3.72-5.28); SEGMENTED NEUTROPHILS % (AUTO) 72.7 % (42-78); TOTAL CELLS COUNTED % (AUTO) 100 %; WHITE BLOOD COUNT 11.5 10^3/uL (4.0-10.5)
[2019-01-29] MEDS: INSULIN LISPRO 100 UNIT/ML 3 ML VIAL SUBCUT SCH ×4 (08:17→21:54)
[2019-01-29] MEDS ORDERED: (PENDING PHARMACY ID) (Ranitidine Hcl [Zantac 150 Mg Tablet] 150 MG) PO SCH (10:00)
[2019-01-29] MEDS: CEFTRIAXONE SODIUM 1,000 MG in DEXTROSE 5%-WATER 50 ML IV SCH ×2 (11:38→21:56)
[2019-01-29] MEDS: ALBUTEROL SULFATE HFA (90 MCG/PUFF) 200 PUFF/8.5 GM MDI IH PRN (12:01)
[2019-01-29] MEDS: ASCORBIC ACID 500 MG TABLET PO SCH ×2 (12:03→18:09)
[2019-01-29] MEDS: CETIRIZINE 10 MG TABLET PO SCH (12:05)
[2019-01-29] MEDS: PREGABALIN 75 MG CAPSULE PO PRN (12:10)
[2019-01-29] MEDS: LISINOPRIL 10 MG TABLET PO SCH (12:11)
[2019-01-29] MEDS: FAMOTIDINE 20 MG TABLET PO SCH ×2 (12:13→21:33)
[2019-01-29] MEDS: ASPIRIN 81 MG TABLET, ENT COATED PO SCH (12:15)
[2019-01-29] MEDS: IBUPROFEN 800 MG TABLET PO PRN ×2 (15:25→23:25)
--- NOTE | 2019-01-29 17:40 | PDOC PROGRESS REPORT ---
Subjective Progress Note for:: 01/29/19 Subjective:: Pain not being adequately controlled with IV dilaudid. Pt states the pain returns after 2 hours. She would like to try a different regimen. Reason For Visit: PID Physical Exam - Physical Exam Vital Signs: Temp Pulse Resp BP Pulse Ox 98.6 F 104 H 16 139/84 H 99 01/29/19 15:15 01/29/19 15:15 01/29/19 15:15 01/29/19 15:15 01/29/19 15:15 Intake & Output 01/28/19 01/29/19 01/30/19 06:59 06:59 06:59 Intake Total 450 1965 250 Balance 450 1965 250 Weight 137.5 kg 139.8 kg Result Laboratory Results: 01/29/19 06:20 01/28/19 07:24 01/29/19 06:20 WBC 11.5 H RBC 3.72 Hgb 10.4 L Hct 30.5 L MCV 82 MCH 27.8 MCHC 33.9 RDW 13.0 Plt Count 311 Seg Neutrophils % 72.7 Lymphocytes % 17.9 Monocytes % 7.7 Eosinophils % 1.1 Basophils % 0.6 Absolute Neutrophils 8.4 H Absolute Lymphocytes 2.1 Absolute Monocytes 0.9 Absolute Eosinophils 0.1 Absolute Basophils 0.1 01/27/19 02:58 Clean Catch Midstream Urine Culture - Final Mixed Urogenital Lilibeth Impressions: Abdomen/Pelvis CT 01/27/19 03:39 IMPRESSION: Complex left adnexal mass with mild adjacent stranding. This may represent a complex cyst or abscess. Further evaluation with a pelvic ultrasound may be useful. Mild stranding adjacent to the distal left ureter, which may be due to an infectious/inflammatory process. This may be secondary to the left adnexal mass or from a recently passed stone or UTI. TECHNICAL DOCUMENTATION: Quality ID # 436: Final reports with documentation of one or more dose reduction techniques (e.g., Automated exposure control, adjustment of the mA and/or kV according to patient size, use of iterative reconstruction technique) copyright 2011 [employer]- All Rights Reserved Transvaginal US 01/27/19 06:07 IMPRESSION: Left hydrosalpinx or pyosalpinx. Correlate with pelvic exam. Assessment & Plan - Diagnosis (1) Hydrosalpinx Is this a current diagnosis for this admission?: Yes Plan: Change pain regiment to 1-2 tabs percocet q6hrs and continue with PO IBU.
[2019-01-29] MEDS ORDERED: OXYCODONE-ACETAMINOPHEN 5-325 MG TABLET PO PRN (18:03)
[2019-01-29] MEDS: OXYCODONE-ACETAMINOPHEN 5-325 MG TABLET PO PRN (18:36)
[2019-01-29] MEDS: SIMVASTATIN 10 MG TABLET PO SCH (21:33)
[2019-01-29] MEDS: INSULIN GLARGINE,HUM.REC.ANLOG 1,000 UNIT/10 ML VIAL SUBCUT SCH (21:55)
[2019-01-30] MEDS: DOXYCYCLINE HYCLATE 100 MG in DEXTROSE 5%-WATER 250 ML IV SCH ×2 (05:15→17:59)
[2019-01-30] MEDS: INSULIN LISPRO 100 UNIT/ML 3 ML VIAL SUBCUT SCH ×4 (08:00→21:55)
[2019-01-30] MEDS: OXYCODONE-ACETAMINOPHEN 5-325 MG TABLET PO PRN ×3 (08:00→20:23)
--- NOTE | 2019-01-30 08:37 | PDOC DISCHARGE SUMMARY ---
General - Admit/Disc Date/PCP Admission Date/Primary Care Provider: 01/27/19 09:52 KETAN VALLE, Discharge Date: 01/30/19 - Discharge Diagnosis (2) Abdominal pain Is this a current diagnosis for this admission?: Yes (3) Hydrosalpinx Is this a current diagnosis for this admission?: Yes (4) Leukocytosis Is this a current diagnosis for this admission?: Yes (5) Acute pain Is this a current diagnosis for this admission?: Yes - Additional Information Resuscitation Status: Full Code Home Medications: Aspirin [Adult Low Dose Aspirin EC] 81 mg PO DAILY 11/20/17 Cetirizine HCl [Zyrtec 10 mg Tablet] 10 mg PO DAILY 11/20/17 Furosemide [Lasix 20 mg Tablet] 20 mg PO DAILYP PRN 11/20/17 Insulin Detemir [Levemir Flextouch] 74 units SQ DAILY 11/20/17 Lisinopril/Hydrochlorothiazide [Zestoretic 20-25 mg Tablet] 1 tab PO DAILY 11/20/17 Pregabalin [Lyrica] 150 mg PO Q8HP PRN 11/20/17 Simvastatin [Zocor 20 mg Tablet] 20 mg PO QHS 11/20/17 Ascorbic Acid [Vitamin C 500 mg Tablet] 500 mg PO BID tablet 11/24/17 Dulaglutide [Trulicity] 1.5 mg SQ MO@1000 01/26/18 Insulin Lispro [Humalog Insulin 100 Unit/1 ml 3 ml Vial] 0 unit SUBCUT .SLD SCALE 01/26/18 Oxycodone HCl [Oxy-Ir 5 mg Tablet] 15 mg PO Q6HP PRN 01/26/18 Albuterol Sulfate [Proair Hfa Inhalation Aerosol 8.5 gm Mdi] 2 puff IH Q6HP PRN 01/27/19 Clotrimazole [Athletic Foot Cream] 1 applic TP BID MDD left forearm 01/27/19 Ranitidine HCl [Zantac 150 mg Tablet] 150 mg PO BID 01/27/19 Varenicline Tartrate [Chantix 1 Mg Tablet] 1 mg PO BIDPCBS 01/27/19 History of Present Illness History of Present Illness: RUTH WOOD is a 44 year old female Hospital Course Hospital Course: has received >48 hours of antibiotics and pain improved with change in pain me ds. (patient does take oxycodone at home 15 mg q 6 hours for chronic pain)Her wbc count has decreased somewhat yesterday. otherwise she is doing well. Physical Exam - Physical Exam Vital Signs: Temp Pulse Resp BP Pulse Ox 98.1 F 78 18 144/67 H 97 01/30/19 04:00 01/30/19 04:00 01/30/19 04:00 01/30/19 04:00 01/30/19 04:00 Intake & Output 01/29/19 01/30/19 01/31/19 06:59 06:59 06:59 Intake Total 1965 1450 Balance 1964 1450 Weight 139.8 kg 139.2 kg General appearance: PRESENT: no acute distress, cooperative - left hand/arm swollen from IV infiltration. IV has been removed. No erythema noted. GI/Abdominal exam: PRESENT: soft - obese and nondistended Result Laboratory Results: 01/29/19 06:20 01/28/19 07:24 Impressions: Abdomen/Pelvis CT 01/27/19 03:39 IMPRESSION: Complex left adnexal mass with mild adjacent stranding. This may represent a complex cyst or abscess. Further evaluation with a pelvic ultrasound may be useful. Mild stranding adjacent to the distal left ureter, which may be due to an infectious/inflammatory process. This may be secondary to the left adnexal mass or from a recently passed stone or UTI. TECHNICAL DOCUMENTATION: Quality ID # 436: Final reports with documentation of one or more dose reduction techniques (e.g., Automated exposure control, adjustment of the mA and/or kV according to patient size, use of iterative reconstruction technique) copyright 2011 [employer]- All Rights Reserved Transvaginal US 01/27/19 06:07 IMPRESSION: Left hydrosalpinx or pyosalpinx. Correlate with pelvic exam. Plan Discharge Plan: Will recheck her CBC to evaluate WBC trend. If continuing to trend down will send home with PO antibiotics x 14 days. Can take home pain meds as that seems to be adequately controlling her pain. Time Spent: Less than 30 Minutes
[2019-01-30] MEDS: IBUPROFEN 800 MG TABLET PO PRN (11:09)
[2019-01-30] MEDS: LISINOPRIL 10 MG TABLET PO SCH (11:10)
[2019-01-30] MEDS: ASCORBIC ACID 500 MG TABLET PO SCH ×2 (11:10→18:02)
[2019-01-30] MEDS: FAMOTIDINE 20 MG TABLET PO SCH ×2 (11:10→21:36)
[2019-01-30 11:11] LABS: ABSOLUTE BASOPHILS # (AUTO) 0.1 10^3/uL (0.0-0.2); ABSOLUTE EOSINOPHILS # (AUTO) 0.1 10^3/uL (0.0-0.6); ABSOLUTE LYMPHOCYTES (AUTO) 1.5 10^3/uL (0.5-4.7); ABSOLUTE MONOCYTES (AUTO) 1.4 10^3/uL (0.1-1.4); ABSOLUTE NEUT (AUTO) 14.9 10^3/uL (1.7-8.2); BASOPHILS % (AUTO) 0.4 % (0-2); EOSINOPHILS % (AUTO) 0.4 % (0-6); HEMATOCRIT 31.1 % (36.0-47.0); HEMOGLOBIN 10.6 g/dL (12.0-15.5); LYMPHOCYTES % (AUTO) 8.6 % (13-45); MEAN CORPUSCULAR HEMOGLOBIN 27.8 pg (27.0-33.4); MEAN CORPUSCULAR HGB CONC 34.1 g/dL (32.0-36.0); MEAN CORPUSCULAR VOLUME 82 fl (80-97); MONOCYTES % (AUTO) 7.7 % (3-13); RED BLOOD COUNT 3.82 10^6/uL (3.72-5.28); RED CELL DISTRIBUTION WIDTH 13.1 % (11.5-14.0); SEGMENTED NEUTROPHILS % (AUTO) 82.9 % (42-78); TOTAL CELLS COUNTED % (AUTO) 100 %
[2019-01-30] MEDS: CEFTRIAXONE SODIUM 1,000 MG in DEXTROSE 5%-WATER 50 ML IV SCH ×2 (11:11→21:35)
[2019-01-30] MEDS: ASPIRIN 81 MG TABLET, ENT COATED PO SCH (11:11)
[2019-01-30] MEDS: CETIRIZINE 10 MG TABLET PO SCH (11:11)
[2019-01-30] MEDS: ALBUTEROL SULFATE HFA (90 MCG/PUFF) 200 PUFF/8.5 GM MDI IH PRN (11:12)
[2019-01-30] MEDS: PREGABALIN 75 MG CAPSULE PO PRN (11:31)
[2019-01-30] MEDS ORDERED: CEPHALEXIN 500 MG CAPSULE PO ONE (12:00)
[2019-01-30 12:07] LABS: PLATELET COUNT 381 10^3/uL (150-450)
--- NOTE | 2019-01-30 12:36 | PDOC PROGRESS REPORT ---
Subjective Progress Note for:: 01/30/19 Reason For Visit: PID Physical Exam - Physical Exam Vital Signs: Temp Pulse Resp BP Pulse Ox 97.7 F 90 20 122/61 97 01/30/19 09:19 01/30/19 09:19 01/30/19 09:19 01/30/19 09:19 01/30/19 04:00 Intake & Output 01/29/19 01/30/19 01/31/19 06:59 06:59 06:59 Intake Total 1965 1450 Balance 1964 1450 Weight 139.8 kg 139.2 kg Result Laboratory Results: 01/30/19 10:45 01/28/19 07:24 01/30/19 10:45 WBC 18.0 H RBC 3.82 Hgb 10.6 L Hct 31.1 L MCV 82 MCH 27.8 MCHC 34.1 RDW 13.1 Plt Count 381 Seg Neutrophils % 82.9 H Lymphocytes % 8.6 L Monocytes % 7.7 Eosinophils % 0.4 Basophils % 0.4 Absolute Neutrophils 14.9 H Absolute Lymphocytes 1.5 Absolute Monocytes 1.4 Absolute Eosinophils 0.1 Absolute Basophils 0.1 Impressions: Abdomen/Pelvis CT 01/27/19 03:39 IMPRESSION: Complex left adnexal mass with mild adjacent stranding. This may represent a complex cyst or abscess. Further evaluation with a pelvic ultrasound may be useful. Mild stranding adjacent to the distal left ureter, which may be due to an infectious/inflammatory process. This may be secondary to the left adnexal mass or from a recently passed stone or UTI. TECHNICAL DOCUMENTATION: Quality ID # 436: Final reports with documentation of one or more dose reduction techniques (e.g., Automated exposure control, adjustment of the mA and/or kV according to patient size, use of iterative reconstruction technique) copyright 2011 [email or web address]- All Rights Reserved Transvaginal US 01/27/19 06:07 IMPRESSION: Left hydrosalpinx or pyosalpinx. Correlate with pelvic exam. Assessment & Plan - Diagnosis (2) Abdominal pain Qualifiers: Abdominal location: lower abdomen, unspecified Qualified Code(s): R10.30 - Lower abdominal pain, unspecified Is this a current diagnosis for this admission?: Yes (3) Hydrosalpinx Is this a current diagnosis for this admission?: Yes (4) Leukocytosis Qualifiers: Leukocytosis type: unspecified Qualified Code(s): D72.829 - Elevated white blood cell count, unspecified Is this a current diagnosis for this admission?: Yes (5) Acute pain Is this a current diagnosis for this admission?: Yes - Plan Summary Plan Summary: patient's WBC has increased to 18 unexpectedly. Patient's IV access has been very difficult and patient indicates that if further IV access is necessary for treatment that she would prefer to get central line placed. I am also going to add Invanz to the patient's antibiotics and recheck her WBC in the AM.
[2019-01-30] MEDS ORDERED: LIDOCAINE 1% INJ-PF (10 MG/ML) 30 ML SDV ONE (13:21)
--- NOTE | 2019-01-30 14:39 | RADIOLOGY REPORT (SQ) ---
EXAM DESCRIPTION: CHEST SINGLE VIEW COMPLETED DATE/TIME: 01/30/2019 2:23 pm REASON FOR STUDY: shortness of breath COMPARISON: None. NUMBER OF VIEWS: One view. TECHNIQUE: Single frontal radiographic view of the chest acquired. LIMITATIONS: None. FINDINGS: LUNGS AND PLEURA: No opacities, masses or pneumothorax. No pleural effusion. MEDIASTINUM AND HILAR STRUCTURES: No masses. Contour normal. HEART AND VASCULAR STRUCTURES: Heart normal in size. Normal vasculature. BONES: No acute findings. HARDWARE: Right IJ line, tip to the right atrium. OTHER: No other significant finding. IMPRESSION: NO SIGNIFICANT RADIOGRAPHIC FINDING IN THE CHEST. TECHNICAL DOCUMENTATION: JOB ID: [id number] [employer]- All Rights Reserved Reading location - IP/workstation name: [email or web address]
[2019-01-30] MEDS: HYDROMORPHONE HCL INJ/PF 2 MG/ML AMPULE IV PRN ×2 (15:35→21:40)
[2019-01-30] MEDS: ERTAPENEM SODIUM 1 GM in NORMAL SALINE 50 ML IV SCH (16:57)
[2019-01-30] MEDS ORDERED: ERTAPENEM SODIUM INJ 1 GM VIAL IV SCH (18:00)
[2019-01-30] MEDS: METRONIDAZOLE 500 MG/NS RTU 500 MG/100 ML RTUPB IV SCH (20:23)
[2019-01-30] MEDS: SIMVASTATIN 10 MG TABLET PO SCH (21:36)
[2019-01-30] MEDS: INSULIN GLARGINE,HUM.REC.ANLOG 1,000 UNIT/10 ML VIAL SUBCUT SCH (21:41)
--- NOTE | 2019-01-30 22:09 | OPERATIVE REPORT E ---
Operative Report NAME: RUTH WOOD : 1975 AGE: 44Y DATE OF SURGERY: 01/30/2019 ROOM: 207 PREOPERATIVE DIAGNOSIS: POOR VEINS FOR IV ACCESS AND PATIENT NEEDED LINE FOR IV ANTIBIOTIC TREATMENT. POSTOPERATIVE DIAGNOSIS: POOR VEINS FOR IV ACCESS AND PATIENT NEEDED LINE FOR IV ANTIBIOTIC TREATMENT. OPERATION: Insertion of right internal jugular vein triple-lumen catheter with ultrasound guidance. SURGEON: JESUS WHITEHEAD M.D. ANESTHESIA: Local. INDICATION: This is a 44-year-old female diagnosed with PID and needed IV antibiotic therapy. Patient has poor peripheral veins for IV access and needed an access now for IV antibiotics. PROCEDURE: Patient was placed in slight Trendelenburg position and the right neck prepped and draped in the usual sterile fashion. With the help of the ultrasound, the right internal jugular vein was then identified and anesthesia infiltrated on the skin overlying the vein. Next, the right internal jugular vein was then punctured and guidewire passed through the needle towards the superior vena cava. Needle was removed and the insertion site dilated. A triple-lumen catheter was then inserted through the guidewire towards the superior vena cava. The catheter was inserted up to about the 19 cm [place]. All the 3 ports then aspirated of blood easily and instilled saline easily. The catheter was anchored to the skin with 3-0 silk. Bio patch placed at the insertion site and a transparent dressing placed over the Bio patch and catheter. A chest x-ray will be obtained for placement. DICTATING PHYSICIAN: JESUS WHITEHEAD M.D. [id number] Y#: [id number] ID: [id number] JOB#: [id number] ACCT: [id number] cc:JESUS WHITEHEAD M.D. >
[2019-01-31] MEDS: OXYCODONE-ACETAMINOPHEN 5-325 MG TABLET PO PRN ×2 (04:02→11:50)
[2019-01-31] MEDS: DOXYCYCLINE HYCLATE 100 MG in DEXTROSE 5%-WATER 250 ML IV SCH ×2 (06:04→18:36)
[2019-01-31] MEDS: HYDROMORPHONE HCL INJ/PF 2 MG/ML AMPULE IV PRN ×3 (06:05→23:13)
[2019-01-31 06:38] LABS: ABSOLUTE BASOPHILS # (AUTO) 0.1 10^3/uL (0.0-0.2); ABSOLUTE LYMPHOCYTES (AUTO) 1.5 10^3/uL (0.5-4.7); ABSOLUTE MONOCYTES (AUTO) 1.2 10^3/uL (0.1-1.4); BASOPHILS % (AUTO) 0.3 % (0-2); EOSINOPHILS % (AUTO) 0.1 % (0-6); HEMATOCRIT 29.7 % (36.0-47.0); MEAN CORPUSCULAR HEMOGLOBIN 27.5 pg (27.0-33.4); MEAN CORPUSCULAR HGB CONC 33.6 g/dL (32.0-36.0); MEAN CORPUSCULAR VOLUME 82 fl (80-97); MONOCYTES % (AUTO) 6.5 % (3-13); PLATELET COUNT 401 10^3/uL (150-450); RED BLOOD COUNT 3.64 10^6/uL (3.72-5.28); RED CELL DISTRIBUTION WIDTH 13.3 % (11.5-14.0); SEGMENTED NEUTROPHILS % (AUTO) 85.1 % (42-78); TOTAL CELLS COUNTED % (AUTO) 100 %; WHITE BLOOD COUNT 18.9 10^3/uL (4.0-10.5)
[2019-01-31] MEDS: IBUPROFEN 800 MG TABLET PO PRN (06:42)
[2019-01-31] MEDS: METRONIDAZOLE 500 MG/NS RTU 500 MG/100 ML RTUPB IV SCH ×2 (08:27→20:48)
[2019-01-31] MEDS: INSULIN LISPRO 100 UNIT/ML 3 ML VIAL SUBCUT SCH ×4 (08:27→23:09)
[2019-01-31] MEDS ORDERED: (PENDING PHARMACY ID) (Dulaglutide [Trulicity] 1.5 MG) SQ SCH (10:00)
[2019-01-31] MEDS: LISINOPRIL 10 MG TABLET PO SCH (10:24)
[2019-01-31] MEDS: ASPIRIN 81 MG TABLET, ENT COATED PO SCH (10:24)
[2019-01-31] MEDS: CETIRIZINE 10 MG TABLET PO SCH (10:25)
[2019-01-31] MEDS: CEFTRIAXONE SODIUM 1,000 MG in DEXTROSE 5%-WATER 50 ML IV SCH ×2 (10:25→22:58)
[2019-01-31] MEDS: ASCORBIC ACID 500 MG TABLET PO SCH ×2 (10:25→17:55)
[2019-01-31] MEDS: FAMOTIDINE 20 MG TABLET PO SCH ×2 (10:25→23:00)
--- NOTE | 2019-01-31 11:29 | PDOC PROGRESS REPORT ---
Subjective Progress Note for:: 01/31/19 Subjective:: pt states she feels better Reason For Visit: PID,UNCONT DM, LEUKOCYTOSIS Physical Exam - Physical Exam Vital Signs: Temp Pulse Resp BP Pulse Ox 99.1 F 115 H 20 137/71 H 97 01/31/19 08:19 01/31/19 08:19 01/31/19 08:19 01/31/19 08:19 01/31/19 08:19 Intake & Output 01/30/19 01/31/19 02/01/19 06:59 06:59 06:59 Intake Total 1450 1260 Balance 1450 1260 Weight 139.2 kg 141.1 kg General appearance: PRESENT: no acute distress GI/Abdominal exam: PRESENT: normal bowel sounds, soft Result Laboratory Results: 01/31/19 06:28 01/28/19 07:24 01/30/19 01/31/19 10:45 06:28 WBC 18.0 H 18.9 H RBC 3.82 3.64 L Hgb 10.6 L 10.0 L Hct 31.1 L 29.7 L MCV 82 82 MCH 27.8 27.5 MCHC 34.1 33.6 RDW 13.1 13.3 Plt Count 381 401 Seg Neutrophils % 82.9 H 85.1 H Lymphocytes % 8.6 L 8.0 L Monocytes % 7.7 6.5 Eosinophils % 0.4 0.1 Basophils % 0.4 0.3 Absolute Neutrophils 14.9 H 16.0 H Absolute Lymphocytes 1.5 1.5 Absolute Monocytes 1.4 1.2 Absolute Eosinophils 0.1 0.0 Absolute Basophils 0.1 0.1 Impressions: Abdomen/Pelvis CT 01/27/19 03:39 IMPRESSION: Complex left adnexal mass with mild adjacent stranding. This may represent a complex cyst or abscess. Further evaluation with a pelvic ultrasound may be useful. Mild stranding adjacent to the distal left ureter, which may be due to an infectious/inflammatory process. This may be secondary to the left adnexal mass or from a recently passed stone or UTI. TECHNICAL DOCUMENTATION: Quality ID # 436: Final reports with documentation of one or more dose reduction techniques (e.g., Automated exposure control, adjustment of the mA and/or kV according to patient size, use of iterative reconstruction technique) copyright 2011 [employer]- All Rights Reserved Transvaginal US 01/27/19 06:07 IMPRESSION: Left hydrosalpinx or pyosalpinx. Correlate with pelvic exam. Chest X-Ray 01/30/19 00:00 IMPRESSION: NO SIGNIFICANT RADIOGRAPHIC FINDING IN THE CHEST. Assessment & Plan - Diagnosis (1) Abdominal pain Qualifiers: Abdominal location: lower abdomen, unspecified Qualified Code(s): R10.30 - Lower abdominal pain, unspecified Is this a current diagnosis for this admission?: Yes (2) Hydrosalpinx Is this a current diagnosis for this admission?: Yes - Plan Summary Plan Summary: pt staes she feels better WBC has increased but she is afebrile and says she is much better. Continue IV antibiotics and rpeat CBC in am
--- NOTE | 2019-01-31 14:44 | Progress Note ---
Provider Note Provider Note: ID Consult Note Asked to review patient's chart. Pt not seen or examined. Pt has PMH including morbid obesity, DM, HTN, s/p prior L BKA. She presented on 01/27/19 with c/o lower abdominal pain x 3-4 days prior to admission, associated with some nausea and decreased appetite. Pt is sexually active with one partner and condom use; reported recently starting her period. She denied dysuria, diarrhea or constipation. She had no CVA tenderness documented by the ED provider and cervical no discharge on pelvic exam or pain on pelvic exam. On wet prep no trichomonas was seen. Chlamydia and GC PCR tests were negative. Initial WBC count was 15,000. It went down to 13-12,000 for two days then back up to 18- 19,000. Pt also has been afebril until today - had a fever of [address] abdomen/pelvis on 01/27 was read as showing a complex/heterogenous L adenexal mass with mina adjacent stranding. Transvaginal US on 01/27 was read as showing fluid in the L fallopian tube suggesting hydrosalpinx or pyosalpinx. Pt had an IV that infiltrated and, due to loss of IV access, a central line was placed. As pt's WBC count increased to 18k yesterday, Invanz was added to Rocephin, doxycycline, and Flagyl. Impression/Recommendations Pt has been diagnosed with PID, and for this Rocephin/ Flagyl / doxycycline should be appropriate. Given her size and the effect of protein, Rocephin should be dosed 2 grams daily rather than 1 gram daily. I do not expect the addition of ertapenem to be necessary to add much additional benefit above and beyond what she was previously receiving. Would discontinue Invanz. The continued leukocytosis or increase in WBC count raises the question of - whether she could have a complication of PID that requires surgical intervention if worsening despite appropriate antibiotic therapy (seems less likely with pt reporting feeling better) - or whether she might instead have a new unrelated process, such as thrombophlebitis causing fever or hospital onset Staph aureus bacteremia related to an infected peripheral line. Would get blood cultures. If not already done, it would be prudent to evaluate the patient for evidence on exam that might suggest thrombophlebitis. Derrick De La Torre MD [facility] pager [phone]
[2019-01-31] MEDS: ERTAPENEM SODIUM 1 GM in NORMAL SALINE 50 ML IV SCH (17:09)
[2019-01-31] MEDS: INSULIN GLARGINE,HUM.REC.ANLOG 1,000 UNIT/10 ML VIAL SUBCUT SCH (22:59)
[2019-01-31] MEDS: SIMVASTATIN 10 MG TABLET PO SCH (22:59)
[2019-02-01] MEDS ORDERED: DIBUCAINE 1% OINTMENT 56 GM PR PRN (05:22)
[2019-02-01] MEDS ORDERED: GLYCERIN/WITCH HAZEL LEAF 1 EACH MED..PAD TP PRN (05:25)
[2019-02-01] MEDS: HYDROMORPHONE HCL INJ/PF 2 MG/ML AMPULE IV PRN ×2 (05:49→22:57)
[2019-02-01] MEDS: SIMETHICONE 80 MG TAB.CHEW PO PRN ×2 (05:49→22:56)
[2019-02-01] MEDS: DOXYCYCLINE HYCLATE 100 MG in DEXTROSE 5%-WATER 250 ML IV SCH ×2 (05:51→18:31)
[2019-02-01 06:58] LABS: ABSOLUTE LYMPHOCYTES (AUTO) 1.1 10^3/uL (0.5-4.7); ABSOLUTE MONOCYTES (AUTO) 0.9 10^3/uL (0.1-1.4); ABSOLUTE NEUT (AUTO) 14.1 10^3/uL (1.7-8.2); BASOPHILS % (AUTO) 0.2 % (0-2); EOSINOPHILS % (AUTO) 0.2 % (0-6); HEMATOCRIT 28.2 % (36.0-47.0); HEMOGLOBIN 9.5 g/dL (12.0-15.5); LYMPHOCYTES % (AUTO) 6.6 % (13-45); MEAN CORPUSCULAR HEMOGLOBIN 27.6 pg (27.0-33.4); MEAN CORPUSCULAR HGB CONC 33.6 g/dL (32.0-36.0); MEAN CORPUSCULAR VOLUME 82 fl (80-97); MONOCYTES % (AUTO) 5.7 % (3-13); PLATELET COUNT 364 10^3/uL (150-450); RED BLOOD COUNT 3.44 10^6/uL (3.72-5.28); RED CELL DISTRIBUTION WIDTH 13.4 % (11.5-14.0); SEGMENTED NEUTROPHILS % (AUTO) 87.3 % (42-78); TOTAL CELLS COUNTED % (AUTO) 100 %; WHITE BLOOD COUNT 16.2 10^3/uL (4.0-10.5)
[2019-02-01] MEDS: INSULIN LISPRO 100 UNIT/ML 3 ML VIAL SUBCUT SCH ×4 (08:23→22:24)
[2019-02-01] MEDS: METRONIDAZOLE 500 MG/NS RTU 500 MG/100 ML RTUPB IV SCH ×2 (08:24→21:47)
--- NOTE | 2019-02-01 09:43 | PDOC PROGRESS REPORT ---
Subjective Progress Note for:: 02/01/19 Subjective:: Patient states that she has abdominal pain which comes and goes. She is complaining of upper abdominal pain as well as global abdominal pain. She is now having watery stool, without foul odor. She remains afebrile. She denies nausea and vomiting Reason For Visit: PID,UNCONT DM, LEUKOCYTOSIS Physical Exam - Physical Exam Vital Signs: Temp Pulse Resp BP Pulse Ox 97.9 F 118 H 18 147/79 H 97 02/01/19 07:09 02/01/19 07:09 02/01/19 07:09 02/01/19 07:09 02/01/19 07:09 Intake & Output 01/31/19 02/01/19 02/02/19 06:59 06:59 06:59 Intake Total 1310 2751 Output Total 480 Balance 1310 2271 Weight 141.1 kg General appearance: PRESENT: no acute distress Respiratory exam: PRESENT: clear to auscultation mary Cardiovascular exam: PRESENT: RRR GI/Abdominal exam: PRESENT: normal bowel sounds, soft, tenderness - Global tenderness Musculoskeletal exam: ABSENT: ambulatory, deformity, dislocation, full ROM, normal inspection, tenderness, other Result Laboratory Results: 02/01/19 06:40 01/28/19 07:24 02/01/19 06:40 WBC 16.2 H RBC 3.44 L Hgb 9.5 L Hct 28.2 L MCV 82 MCH 27.6 MCHC 33.6 RDW 13.4 Plt Count 364 Seg Neutrophils % 87.3 H Lymphocytes % 6.6 L Monocytes % 5.7 Eosinophils % 0.2 Basophils % 0.2 Absolute Neutrophils 14.1 H Absolute Lymphocytes 1.1 Absolute Monocytes 0.9 Absolute Eosinophils 0.0 Absolute Basophils 0.0 Impressions: Abdomen/Pelvis CT 01/27/19 03:39 IMPRESSION: Complex left adnexal mass with mild adjacent stranding. This may represent a complex cyst or abscess. Further evaluation with a pelvic ultrasound may be useful. Mild stranding adjacent to the distal left ureter, which may be due to an infectious/inflammatory process. This may be secondary to the left adnexal mass or from a recently passed stone or UTI. TECHNICAL DOCUMENTATION: Quality ID # 436: Final reports with documentation of one or more dose reduction techniques (e.g., Automated exposure control, adjustment of the mA and/or kV according to patient size, use of iterative reconstruction technique) copyright 2011 [employer]- All Rights Reserved Transvaginal US 01/27/19 06:07 IMPRESSION: Left hydrosalpinx or pyosalpinx. Correlate with pelvic exam. Chest X-Ray 01/30/19 00:00 IMPRESSION: NO SIGNIFICANT RADIOGRAPHIC FINDING IN THE CHEST. Assessment & Plan - Diagnosis (1) Anemia Qualifiers: Anemia type: iron deficiency Iron deficiency anemia type: inadequate dietary iron intake Qualified Code(s): D50.8 - Other iron deficiency anemias Is this a current diagnosis for this admission?: Yes (2) Hydrosalpinx Is this a current diagnosis for this admission?: Yes (3) Abdominal pain Qualifiers: Abdominal location: lower abdomen, unspecified Qualified Code(s): R10.30 - Lower abdominal pain, unspecified Is this a current diagnosis for this admission?: Yes (4) Acute pain Is this a current diagnosis for this admission?: Yes (5) Below knee amputation status Qualifiers: Laterality: left Qualified Code(s): Z89.512 - Acquired absence of left leg below knee Is this a current diagnosis for this admission?: Yes (6) Type 2 diabetes mellitus, with long-term current use of insulin Qualifiers: Diabetes mellitus complication status: without complication Qualified Code(s): E11.9 - Type 2 diabetes mellitus without complications; Z79.4 - adjunct faculty for medical terminology (current) use of insulin Is this a current diagnosis for this admission?: Yes (7) Chronic hypertension Is this a current diagnosis for this admission?: Yes (8) Leukocytosis Qualifiers: Leukocytosis type: unspecified Qualified Code(s): D72.829 - Elevated white blood cell count, unspecified Is this a current diagnosis for this admission?: Yes - Time Time Spent with patient: 15-24 minutes - Inpatient Certification Based on my medical assessment, after consideration of the patient's comorbidities, presenting symptoms, or acuity I expect that the services needed warrant INPATIENT care.: Yes Medical Necessity: Significant Comorbidiites Make Outpatient Treatment Too Risky - Plan Summary Plan Summary: 1. Obtain a pelvic and abdominal ultrasound 2. Consult hospitalist 3. Collect stool for possible C. difficile
[2019-02-01] MEDS: LISINOPRIL 10 MG TABLET PO SCH (10:22)
[2019-02-01] MEDS: FAMOTIDINE 20 MG TABLET PO SCH ×2 (10:23→21:53)
[2019-02-01] MEDS: ASPIRIN 81 MG TABLET, ENT COATED PO SCH (10:23)
[2019-02-01] MEDS: CEFTRIAXONE SODIUM 1,000 MG in DEXTROSE 5%-WATER 50 ML IV SCH ×2 (10:23→22:56)
[2019-02-01] MEDS: ASCORBIC ACID 500 MG TABLET PO SCH ×2 (10:23→18:30)
[2019-02-01] MEDS: CETIRIZINE 10 MG TABLET PO SCH (10:23)
[2019-02-01] MEDS: PREGABALIN 75 MG CAPSULE PO PRN (10:23)
--- NOTE | 2019-02-01 13:47 | RADIOLOGY REPORT (SQ) ---
EXAM DESCRIPTION: U/S ABDOMEN COMPLETE W/O DOP COMPLETED DATE/TIME: 02/01/2019 1:27 pm REASON FOR STUDY: global abdominal pain COMPARISON: None. TECHNIQUE: Dynamic and static grayscale images acquired of the abdomen and recorded on PACS. Additio nal selected color Doppler and spectral images recorded. Note: Exam does not meet criteria for a complete doppler/duplex scan LIMITATIONS: Study limited due to the patient's body habitus. FINDINGS: PANCREAS: Poorly seen secondary to acoustical interference from fat or from air in the bow el. No visualized masses. Duct normal caliber as seen. LIVER: Enlarged, measuring 19.7 cm. Echotexture is coarse with increased echogenicity consistent wit h fatty infiltration. LIVER VASCULATURE: Normal directional flow of the main portal vein and hepatic veins. GALLBLADDER: No stones. Contracted. Mild diffuse gallbladder wall thickening. Small amount of viktoria cholecystic fluid. ULTRASOUND-DETECTED PATEL'S SIGN: Negative. INTRAHEPATIC DUCTS AND COMMON DUCT: CBD and intrahepatic ducts normal caliber. No filling defects. INFERIOR VENA CAVA: Normal flow. AORTA: No aneurysm. RIGHT KIDNEY: Normal size. Normal echogenicity. No solid or suspicious masses. No hydronephrosis. No calcifications. LEFT KIDNEY: Normal size. Normal echogenicity. No solid or suspicious masses. No hydronephrosis. No calcifications. SPLEEN:Normal size. No solid masses. PERITONEAL AND PLEURAL SPACES: Small amount of free fluid under the liver. OTHER: No other significant finding. IMPRESSION: LIMITED STUDY. HEPATOMEGALY WITH FATTY INFILTRATION OF THE LIVER. SMALL AMOUNT OF FREE FLUID IN THE SUBHEPATIC SPACE. TECHNICAL DOCUMENTATION: JOB ID: [id number] [employer]- All Rights Reserved Reading location - IP/workstation name: [email or web address]
--- NOTE | 2019-02-01 13:53 | RADIOLOGY REPORT (SQ) ---
EXAM DESCRIPTION: U/S NON OB PEL W/DOPPLER COMPLETED DATE/TIME: 02/01/2019 1:27 pm REASON FOR STUDY: pelvic pain COMPARISON: None. TECHNIQUE: Dynamic and static grayscale images acquired of the pelvis via transabdominal approach an d recorded on PACS. Additional selected color Doppler and spectral images recorded. LIMITATIONS: Study limited due to the patient's obesity and also due to the lack of a full bladder u sing transabdominal technique. FINDINGS: UTERUS: Enlarged. Contour normal. No mass. ENDOMETRIAL STRIPE: No focal or generalized thickening. No masses. CERVIX: No nabothian cysts. RIGHT OVARY AND DOPPLER: Ovary not visualized. LEFT OVARY AND DOPPLER: Cystic area measuring 2.3 x 2.5 cm. Questionable fluid in the fallopian tube . FREE FLUID: None noted. OTHER: No other significant finding. MEASUREMENTS: UTERUS: 5.2 x 6.2 x 13.7 cm. ENDOMETRIAL STRIPE: 6.7 mm. RIGHT OVARY: Not visualized. LEFT OVARY: 3.6 x 3.7 x 3.7 cm. IMPRESSION: LIMITED STUDY. CYSTIC AREA IN THE LEFT OVARY AND QUESTIONABLE FLUID IN THE LEFT FALLOPI AN TUBE. LIMITED VISUALIZATION DUE TO TRANSABDOMINAL TECHNIQUE AND THE PATIENT'S BODY HABITUS. IF F URTHER EVALUATION IS INDICATED, AN MRI OF THE PELVIS MAY BE NECESSARY FOR MORE COMPLETE VISUALIZATION . TECHNICAL DOCUMENTATION: JOB ID: [id number]- All Rights Reserved Rev Reading location - IP/workstation name: [email or web address]
[2019-02-01] MEDS: OXYCODONE-ACETAMINOPHEN 5-325 MG TABLET PO PRN (14:06)
[2019-02-01 16:49] LABS: ALANINE AMINOTRANSFERASE 30 U/L (9-52); ALBUMIN 2.5 g/dL (3.5-5.0); ALKALINE PHOSPHATASE 140 U/L (38-126); ANION GAP 9 (5-19); ASPARTATE AMINO TRANSFERASE 17 U/L (14-36); BILIRUBIN,DIRECT 0.9 mg/dL (0.0-0.4); BILIRUBIN,TOTAL 0.9 mg/dL (0.2-1.3); BLOOD UREA NITROGEN 37 mg/dL (7-20); CARBON DIOXIDE 22 mmol/L (22-30); CHLORIDE 102 mmol/L (98-107); GLUCOSE 154 mg/dL (75-110); POTASSIUM 4.5 mmol/L (3.6-5.0); SODIUM 133.2 mmol/L (137-145); TOTAL PROTEIN 5.7 g/dL (6.3-8.2)
[2019-02-01 16:51] LABS: CALCIUM 8.8 mg/dL (8.4-10.2)
--- NOTE | 2019-02-01 19:35 | PDOC CONSULTATION ---
Consultation Consult Date: 02/01/19 Attending physician:: GILBERTO BEDOLLA Consult reason:: Abdominal pain. History of Present Illness Admission Date/PCP: 01/27/19 09:52 KETAN VALLE DO Patient complains of: Abdominal pain History of Present Illness: RUTH WOOD is a 44 year old female with history of diabetes, hypertension, neuropathy and hyperlipidemia. She is status post lower extremity amputation thought to be secondary to Invokana use. She was initially admitted with abdominal pain last week. Imaging by ultrasound revealed a left ovarian cyst and hydrosalpinx. She was placed on antibiotic therapy. Her white blood cell count did begin to respond however the pain did not seem to improve. The pain seems out of proportion to the ovarian cyst and in fact is across the upper abdomen rather than focused in the left lower quadrant. Several days ago the white blood cell count increased to 18,000. The patient is on triple antibiotic therapy. Despite the white blood cell count coming down to 16,000 today the patient still has excruciating pain in the abdomen. Past Medical History Cardiac Medical History: Reports: Hyperlipidema, Hypertension Denies: Coronary Artery Disease, Myocardial Infarction Pulmonary Medical History: Reports: Asthma, Sleep Apnea - She wears CPAP at home Denies: Bronchitis, Chronic Obstructive Pulmonary Disease (COPD), Pneumonia Neurological Medical History: Denies: Seizures Endocrine Medical History: Reports: Diabetes Mellitus Type 2 Musculoskeltal Medical History: Denies: Arthritis, Fibromyalgia Psychiatric Medical History: Denies: Depression Hematology: Reports: Anemia Denies: Bleeding Tendencies Past Surgical History Past Surgical History: Reports: Section - Twice, Orthopedic Surgery - Heel spur surgery, bilateral carpal tunnel surgery, left BLK amputation, Other - 2 c section, left bone spur removal, left foot surg, R eye surg as child Social History Information Source: Patient, ON LICENSE OF [facility] Records Lives with: Family Smoking Status: Former Smoker Cigarettes Packs Per Day: 4 Number of Years Smokin Frequency of Alcohol Use: None Hx Recreational Drug Use: Yes Drugs: Marijuana Hx Prescription Drug Abuse: No - Advance Directive Resuscitation Status: Full Code Family History Family History: CAD, DM, Hyperlipidemia, Hypertension Parental Family History Reviewed: Yes Children Family History Reviewed: Yes Sibling(s) Family History Reviewed.: Yes Medication/Allergy Home Medications: Aspirin [Adult Low Dose Aspirin EC] 81 mg PO DAILY 11/20/17 Cetirizine HCl [Zyrtec 10 mg Tablet] 10 mg PO DAILY 11/20/17 Furosemide [Lasix 20 mg Tablet] 20 mg PO DAILYP PRN 11/20/17 Insulin Detemir [Levemir Flextouch] 74 units SQ DAILY 11/20/17 Lisinopril/Hydrochlorothiazide [Zestoretic 20-25 mg Tablet] 1 tab PO DAILY 11/20/17 Pregabalin [Lyrica] 150 mg PO Q8HP PRN 11/20/17 Simvastatin [Zocor 20 mg Tablet] 20 mg PO QHS 11/20/17 Ascorbic Acid [Vitamin C 500 mg Tablet] 500 mg PO BID tablet 11/24/17 Dulaglutide [Trulicity] 1.5 mg SQ MO@1000 01/26/18 Insulin Lispro [Humalog Insulin 100 Unit/1 ml 3 ml Vial] 0 unit SUBCUT .SLD SCALE 01/26/18 Oxycodone HCl [Oxy-Ir 5 mg Tablet] 15 mg PO Q6HP PRN 01/26/18 Albuterol Sulfate [Proair Hfa Inhalation Aerosol 8.5 gm Mdi] 2 puff IH Q6HP PRN 01/27/19 Clotrimazole [Athletic Foot Cream] 1 applic TP BID MDD left forearm 01/27/19 Ranitidine HCl [Zantac 150 mg Tablet] 150 mg PO BID 01/27/19 Varenicline Tartrate [Chantix 1 Mg Tablet] 1 mg PO BIDPCBS 01/27/19 Allergies/Adverse Reactions: No Known Allergies Allergy (Verified 01/26/19 22:01) Review of Systems Constitutional: PRESENT: anorexia. ABSENT: chills, headache(s), night sweats Eyes: ABSENT: visual disturbances Ears: ABSENT: hearing changes Nose, Mouth, and Throat: ABSENT: mouth pain, sore throat Cardiovascular: ABSENT: chest pain, edema, orthropnea, palpitations Respiratory: ABSENT: cough, dyspnea, hemoptysis, sputum Gastrointestinal: PRESENT: abdominal pain - Severe sharp stabbing abdominal pain. At the time of admission the patient states that it was continuous. After 1 week of antibiotic therapy the pain is intermittent but still very severe. It is mostly across the upper abdomen., nausea, vomiting. ABSENT: diarrhea Genitourinary: ABSENT: difficulty urinating, dysuria, hematuria Musculoskeletal: ABSENT: joint swelling Integumentary: ABSENT: erythema, pruritus, rash Neurological: ABSENT: abnormal movements, abnormal speech, confusion, memory loss Psychiatric: ABSENT: anxiety, depression, hallucinations Endocrine: ABSENT: cold intolerance, heat intolerance Hematologic/Lymphatic: ABSENT: easy bleeding, easy bruising Allergic/Immunologic: ABSENT: seasonal rhinorrhea Physical Exam Vital Signs: Temp Pulse Resp BP Pulse Ox 99.1 F 114 H 18 142/74 H 97 02/01/19 15:29 02/01/19 15:29 02/01/19 15:29 02/01/19 15:29 02/01/19 15:29 Intake & Output 01/31/19 02/01/19 02/02/19 06:59 06:59 06:59 Intake Total 1310 2751 Output Total 480 Balance 1310 2271 Weight 141.1 kg General appearance: PRESENT: cooperative, morbidly obese - BMI 51.8, severe distress - During this encounter she had an episode of sharp stabbing pain in the abdomen., well-developed Head exam: PRESENT: atraumatic, normocephalic Eye exam: PRESENT: conjunctiva pink. ABSENT: scleral icterus Ear exam: PRESENT: normal external ear exam Mouth exam: PRESENT: dry mucosa, tongue midline Respiratory exam: PRESENT: clear to auscultation mary, symmetrical. ABSENT: accessory muscle use, rales, rhonchi, wheezes Cardiovascular exam: PRESENT: irregular rhythm, +S1, +S2 GI/Abdominal exam: PRESENT: hypoactive bowel sounds, soft, tenderness - Tenderness mostly across the upper abdomen including upper quadrants and epigastric area., other - Protuberant abdomen. ABSENT: guarding Rectal exam: PRESENT: deferred Gentrourinary exam: ABSENT: indwelling catheter Extremities exam: PRESENT: other - Left below-knee amputation Neurological exam: PRESENT: alert, awake, oriented to person, oriented to place, oriented to time, oriented to situation, CN II-XII grossly intact Psychiatric exam: PRESENT: appropriate affect - Affect reflects her significant pain. ABSENT: agitated, anxious Focused psych exam: ABSENT: restlessness Results Laboratory Results: 02/01/19 06:40 02/01/19 06:40 02/01/19 02/01/19 06:40 06:40 WBC 16.2 H RBC 3.44 L Hgb 9.5 L Hct 28.2 L MCV 82 MCH 27.6 MCHC 33.6 RDW 13.4 Plt Count 364 Seg Neutrophils % 87.3 H Lymphocytes % 6.6 L Monocytes % 5.7 Eosinophils % 0.2 Basophils % 0.2 Absolute Neutrophils 14.1 H Absolute Lymphocytes 1.1 Absolute Monocytes 0.9 Absolute Eosinophils 0.0 Absolute Basophils 0.0 Sodium 133.2 L Potassium 4.5 Chloride 102 Carbon Dioxide 22 Anion Gap 9 BUN 37 H Creatinine 2.44 H Est GFR ( Amer) 26 L Est GFR (Non-Af Amer) 21 L Glucose 154 H Calcium 8.8 Total Bilirubin 0.9 AST 17 ALT 30 Alkaline Phosphatase 140 H Total Protein 5.7 L Albumin 2.5 L Impressions: Abdomen/Pelvis CT 01/27/19 03:39 IMPRESSION: Complex left adnexal mass with mild adjacent stranding. This may represent a complex cyst or abscess. Further evaluation with a pelvic ultrasound may be useful. Mild stranding adjacent to the distal left ureter, which may be due to an infectious/inflammatory process. This may be secondary to the left adnexal mass or from a recently passed stone or UTI. TECHNICAL DOCUMENTATION: Quality ID # 436: Final reports with documentation of one or more dose reduction techniques (e.g., Automated exposure control, adjustment of the mA and/or kV according to patient size, use of iterative reconstruction technique) copyright 2011 [employer]- All Rights Reserved Transvaginal US 01/27/19 06:07 IMPRESSION: Left hydrosalpinx or pyosalpinx. Correlate with pelvic exam. Chest X-Ray 01/30/19 00:00 IMPRESSION: NO SIGNIFICANT RADIOGRAPHIC FINDING IN THE CHEST. Pelvis Ultrasound 02/01/19 09:38 IMPRESSION: LIMITED STUDY. CYSTIC AREA IN THE LEFT OVARY AND QUESTIONABLE FLUID IN THE LEFT FALLOPIAN TUBE. LIMITED VISUALIZATION DUE TO TRANSABDOMINAL TECHNIQUE AND THE PATIENT'S BODY HABITUS. IF FURTHER EVALUATION IS INDICATED, AN MRI OF THE PELVIS MAY BE NECESSARY FOR MORE COMPLETE VISUALIZATION. Abdomen Ultrasound 02/01/19 09:39 IMPRESSION: LIMITED STUDY. HEPATOMEGALY WITH FATTY INFILTRATION OF THE LIVER. SMALL AMOUNT OF FREE FLUID IN THE SUBHEPATIC SPACE. Assessment and Plan - Diagnosis (1) Abdominal pain Qualifiers: Abdominal location: upper abdomen, unspecified Qualified Code(s): R10.10 - Upper abdominal pain, unspecified Is this a current diagnosis for this admission?: Yes Plan: Patient has had several ultrasound studies. Consistent is the left ovarian cyst and left hydrosalpinx. It is not believed to be pyosalpinx. In discussing the case with Dr. Snider, ovarian cyst and hydrosalpinx should not cause this much pain. The pain would normally be located in the left lower quadrant not across the upper abdomen. The ultrasound did reveal a mildly thickened gallbladder wall with some pericholecystic fluid. The gallbladder was contracted and there were no dilated ducts. In addition to the elevated white blood cell count as noted above the patient does not have elevated transaminases nor does she have elevated bilirubin. Cholecystitis is an unlikely culprit. Because of the ongoing pain without clear etiology Dr. snider has ordered a CT scan of the abdomen and pelvis. (2) Hydrosalpinx Is this a current diagnosis for this admission?: Yes Plan: Noted on ultrasound. This should not be the cause of this significant amount of abdominal pain. The patient is on antibiotics with Rocephin, metronidazole and doxycycline. Blood cell count is beginning to decrease again. (3) Left ovarian cyst Is this a current diagnosis for this admission?: Yes Plan: The cyst measures approximately 2 x 2.5 cm. Details of treatment plan as noted in above (4) Diabetes mellitus type 1.5 Is this a current diagnosis for this admission?: Yes Plan: Very good glucose control with Lantus and sliding scale. The patient did use Invokana in the past and it is felt that this led to the left below-knee amputation. (5) Hypertension Qualifiers: Hypertension type: essential hypertension Qualified Code(s): I10 - Essential (primary) hypertension Is this a current diagnosis for this admission?: Yes Plan: Despite the lisinopril 30 mg daily, the blood pressure is not ideally controlled. Part of this is likely pain. I will change the furosemide to 20 mg daily as a scheduled dose and monitor blood pressure. (6) Hyperlipidemia Qualifiers: Hyperlipidemia type: unspecified Qualified Code(s): E78.5 - Hyperlipidemia, unspecified Is this a current diagnosis for this admission?: Yes Plan: Continue simvastatin 20 mg daily (7) Fatty liver disease, nonalcoholic Is this a current diagnosis for this admission?: Yes Plan: Echotexture consistent with fatty liver noted on ultrasound. There is also hepatomegaly. After this illness weight loss should be encouraged. (8) Morbid obesity with BMI of 50.0-59.9, adult Is this a current diagnosis for this admission?: Yes Plan: This is a significant comorbidity for her diabetes as well as hypertension and hyperlipidemia, all her risk factors for heart disease. Encourage consistent carbohydrate cardiac diet at discharge. - Time Time Spent with patient: 35 or more minutes Medications reviewed and adjusted accordingly: Yes
[2019-02-01] MEDS: SIMVASTATIN 10 MG TABLET PO SCH (21:54)
[2019-02-01] MEDS ORDERED: METRONIDAZOLE 500 MG/NS RTU 500 MG/100 ML RTUPB IV ONE (22:00)
--- NOTE | 2019-02-01 22:19 | RADIOLOGY REPORT (SQ) ---
EXAM DESCRIPTION: CLINICAL HISTORY: 44 years Female acute abdomen COMPARISON: 01/27/2019 TECHNIQUE: Contiguous axial images obtained through the abdomen and pelvis without IV contrast. Reformatted images obtained. This exam was performed according to our department optimization program which includes automated exposure control, adjustment of the mA and/or kv according to patient size and/or use of iterative reconstruction technique. FINDINGS: Study is significantly limited with without the use of contrast. When compared to the previous study there has been development of small amount of patchy density in the right lung base and right pleural effusion. There is fluid in the subphrenic space on the right and around the liver. Fatty infiltration of the liver. The spleen and pancreas appear unremarkable. No adrenal masses. The kidneys appear unremarkable. No hydronephrosis or definite ureteral calculi. The gallbladder is visualized. No aneurysmal dilatation of the aorta. No evidence of bowel obstruction. There is inflammatory change throughout the mesentery with a small amount of peritoneal thickening and moderate fluid in the lower abdomen and pelvis. Soft tissue density inseparable from the uterus in the left pelvis which is indeterminate on CT. IMPRESSION: When compared to the previous examination there has been interval worsening of inflammatory change and fluid in the abdomen and pelvis with some thickening of the peritoneal fascia, fluid around the liver and in the right subphrenic space and increasing fluid in the pelvis as well as increase in size of the soft tissue density in the left adnexa. Recommend further evaluation with intravenous contrast. Based on this examination possibility of TOA and/or pyelonephritis is not excluded. Clinical correlation would also be beneficial Development of small amount of inflammatory infiltrate in the right lung base with right pleural effusion
[2019-02-01] MEDS: INSULIN GLARGINE,HUM.REC.ANLOG 1,000 UNIT/10 ML VIAL SUBCUT SCH (22:27)
[2019-02-01] MEDS: IBUPROFEN 800 MG TABLET PO PRN (22:56)
[2019-02-02 05:20] LABS: ABSOLUTE EOSINOPHILS # (AUTO) 0.1 10^3/uL (0.0-0.6); ABSOLUTE LYMPHOCYTES (AUTO) 1.3 10^3/uL (0.5-4.7); ABSOLUTE NEUT (AUTO) 15.2 10^3/uL (1.7-8.2); BASOPHILS % (AUTO) 0.2 % (0-2); EOSINOPHILS % (AUTO) 0.5 % (0-6); HEMATOCRIT 26.7 % (36.0-47.0); LYMPHOCYTES % (AUTO) 7.2 % (13-45); MEAN CORPUSCULAR HEMOGLOBIN 27.4 pg (27.0-33.4); MEAN CORPUSCULAR HGB CONC 33.7 g/dL (32.0-36.0); MEAN CORPUSCULAR VOLUME 81 fl (80-97); MONOCYTES % (AUTO) 5.9 % (3-13); PLATELET COUNT 326 10^3/uL (150-450); RED BLOOD COUNT 3.28 10^6/uL (3.72-5.28); RED CELL DISTRIBUTION WIDTH 13.5 % (11.5-14.0); SEGMENTED NEUTROPHILS % (AUTO) 86.2 % (42-78); TOTAL CELLS COUNTED % (AUTO) 100 %; WHITE BLOOD COUNT 17.6 10^3/uL (4.0-10.5)
[2019-02-02] MEDS: DOXYCYCLINE HYCLATE 100 MG in DEXTROSE 5%-WATER 250 ML IV SCH ×2 (05:22→18:17)
[2019-02-02 05:39] LABS: ALANINE AMINOTRANSFERASE 24 U/L (9-52); ALBUMIN 2.4 g/dL (3.5-5.0); ALKALINE PHOSPHATASE 118 U/L (38-126); ANION GAP 13 (5-19); ASPARTATE AMINO TRANSFERASE 15 U/L (14-36); BILIRUBIN,DIRECT 0.6 mg/dL (0.0-0.4); BILIRUBIN,TOTAL 0.6 mg/dL (0.2-1.3); BLOOD UREA NITROGEN 45 mg/dL (7-20); CALCIUM 8.6 mg/dL (8.4-10.2); CARBON DIOXIDE 21 mmol/L (22-30); CHLORIDE 99 mmol/L (98-107); GLUCOSE 123 mg/dL (75-110); SODIUM 132.7 mmol/L (137-145); TOTAL PROTEIN 5.6 g/dL (6.3-8.2)
[2019-02-02 05:47] LABS: POTASSIUM 3.9 mmol/L (3.6-5.0)
--- NOTE | 2019-02-02 08:27 | RADIOLOGY REPORT (SQ) ---
EXAM DESCRIPTION: CHEST SINGLE VIEW COMPLETED DATE/TIME: 02/02/2019 8:05 am REASON FOR STUDY: Infiltrate COMPARISON: None. EXAM PARAMETERS: NUMBER OF VIEWS: One view. TECHNIQUE: Single frontal radiographic view of the chest acquired. RADIATION DOSE: NA LIMITATIONS: None. FINDINGS: LUNGS AND PLEURA: Mild patchy right basilar opacities. No significant pleural effusion. No pneumothorax. Unremarkable left hemithorax. MEDIASTINUM AND HILAR STRUCTURES: No masses. Contour normal. HEART AND VASCULAR STRUCTURES: Heart normal in size. Normal vasculature. BONES: No acute findings. HARDWARE: Right internal jugular central venous catheter unchanged. OTHER: No other significant finding. IMPRESSION: Mild patchy right basilar airspace disease suspicious for pneumonia. TECHNICAL DOCUMENTATION: JOB ID: [id number] [employer]- All Rights Reserved Reading location - IP/workstation name: [email or web address]
[2019-02-02] MEDS: METRONIDAZOLE 500 MG/NS RTU 500 MG/100 ML RTUPB IV SCH ×2 (09:24→20:34)
[2019-02-02] MEDS: INSULIN LISPRO 100 UNIT/ML 3 ML VIAL SUBCUT SCH ×3 (09:24→17:25)
[2019-02-02] MEDS: ASPIRIN 81 MG TABLET, ENT COATED PO SCH (09:25)
[2019-02-02] MEDS: CETIRIZINE 10 MG TABLET PO SCH (09:25)
[2019-02-02] MEDS: FUROSEMIDE 20 MG TABLET PO SCH (09:25)
[2019-02-02] MEDS: ASCORBIC ACID 500 MG TABLET PO SCH ×2 (09:25→18:17)
[2019-02-02] MEDS: LISINOPRIL 10 MG TABLET PO SCH (09:25)
[2019-02-02] MEDS: FAMOTIDINE 20 MG TABLET PO SCH ×2 (09:25→22:02)
[2019-02-02] MEDS: CEFTRIAXONE SODIUM 1,000 MG in DEXTROSE 5%-WATER 50 ML IV SCH ×2 (11:18→21:58)
[2019-02-02] MEDS: OXYCODONE-ACETAMINOPHEN 5-325 MG TABLET PO PRN ×2 (11:19→18:26)
--- NOTE | 2019-02-02 12:24 | PDOC PROGRESS REPORT ---
Subjective Progress Note for:: 02/02/19 Subjective:: She reports that her pain is worsening. Reason For Visit: PID,UNCONT DM, LEUKOCYTOSIS Physical Exam - Physical Exam Vital Signs: Temp Pulse Resp BP Pulse Ox 97.4 F 96 16 139/73 H 97 02/02/19 11:26 02/02/19 11:26 02/02/19 11:26 02/02/19 11:26 02/02/19 11:26 Intake & Output 02/01/19 02/02/19 02/03/19 06:59 06:59 06:59 Intake Total 2751 700 250 Output Total 480 1800 Balance 2271 -1100 250 Weight 141 kg General appearance: PRESENT: mild distress, morbidly obese GI/Abdominal exam: PRESENT: Peguero's sign, tenderness Result Laboratory Results: 02/02/19 05:05 02/02/19 05:05 02/01/19 02/02/19 02/02/19 06:40 05:05 05:05 WBC 17.6 H RBC 3.28 L Hgb 9.0 L Hct 26.7 L MCV 81 MCH 27.4 MCHC 33.7 RDW 13.5 Plt Count 326 Seg Neutrophils % 86.2 H Lymphocytes % 7.2 L Monocytes % 5.9 Eosinophils % 0.5 Basophils % 0.2 Absolute Neutrophils 15.2 H Absolute Lymphocytes 1.3 Absolute Monocytes 1.0 Absolute Eosinophils 0.1 Absolute Basophils 0.0 Sodium 133.2 L 132.7 L Potassium 4.5 3.9 Chloride 102 99 Carbon Dioxide 22 21 L Anion Gap 9 13 BUN 37 H 45 H Creatinine 2.44 H 2.47 H Est GFR ( Amer) 26 L 26 L Est GFR (Non-Af Amer) 21 L 21 L Glucose 154 H 123 H Calcium 8.8 8.6 Total Bilirubin 0.9 0.6 AST 17 15 ALT 30 24 Alkaline Phosphatase 140 H 118 Total Protein 5.7 L 5.6 L Albumin 2.5 L 2.4 L Impressions: Transvaginal US 01/27/19 06:07 IMPRESSION: Left hydrosalpinx or pyosalpinx. Correlate with pelvic exam. Pelvis Ultrasound 02/01/19 09:38 IMPRESSION: LIMITED STUDY. CYSTIC AREA IN THE LEFT OVARY AND QUESTIONABLE FLUID IN THE LEFT FALLOPIAN TUBE. LIMITED VISUALIZATION DUE TO TRANSABDOMINAL TECHNIQUE AND THE PATIENT'S BODY HABITUS. IF FURTHER EVALUATION IS INDICATED, AN MRI OF THE PELVIS MAY BE NECESSARY FOR MORE COMPLETE VISUALIZATION. Abdomen Ultrasound 02/01/19 09:39 IMPRESSION: LIMITED STUDY. HEPATOMEGALY WITH FATTY INFILTRATION OF THE LIVER. SMALL AMOUNT OF FREE FLUID IN THE SUBHEPATIC SPACE. Abdomen/Pelvis CT 02/01/19 16:38 IMPRESSION: When compared to the previous examination there has been interval worsening of inflammatory change and fluid in the abdomen and pelvis with some thickening of the peritoneal fascia, fluid around the liver and in the right subphrenic space and increasing fluid in the pelvis as well as increase in size of the soft tissue density in the left adnexa. Recommend further evaluation with intravenous contrast. Based on this examination possibility of TOA and/or pyelonephritis is not excluded. Clinical correlation would also be beneficial Development of small amount of inflammatory infiltrate in the right lung base with right pleural effusion Chest X-Ray 02/02/19 00:00 IMPRESSION: Mild patchy right basilar airspace disease suspicious for pneumonia. Assessment & Plan - Diagnosis (1) Abdominal pain Qualifiers: Abdominal location: upper abdomen, unspecified Qualified Code(s): R10.10 - Upper abdominal pain, unspecified Is this a current diagnosis for this admission?: Yes (2) Leukocytosis Qualifiers: Leukocytosis type: unspecified Qualified Code(s): D72.829 - Elevated white blood cell count, unspecified Is this a current diagnosis for this admission?: Yes - Time Time Spent with patient: 15-24 minutes - Plan Summary Plan Summary: The patient is not improving on appropriate antibiotics. We will get a surgical consult. We must consider transfer to tertiary care.
--- NOTE | 2019-02-02 14:55 | PDOC PROGRESS REPORT ---
Subjective Progress Note for:: 02/02/19 Subjective:: RUTH WOOD is a 44 year old female with history of diabetes, hypertension, neuropathy and hyperlipidemia. She was initially admitted with abdominal pain last week. Abd/Pelvic US revealed L ovarian cyst but patient's pain seemed out of proportion to these findings. CT Abd/Pelvis revealed inflammatory changes and fluid in the abdomen and pelvis with some thickening of the peritoneal fascia, fluid around the liver in the right subphrenic space and fluid in the pelvis as well as increase in size of the soft tissue density in the left adnexa. Possible TOA/pyelonephritis not excluded. Patient was seen this afternoon on rounds, she is resting comfortably in bed eating her lunch. The patient does endorse mild upper abdominal pain, but states that it has "eased up."The patient endorses abdominal pain with movement and intermittent postprandial abdominal pain. Patient states that her PRN oral analgesia has been controlling her pain. L CTA. S1-S2. Normal bowel sounds. Abdomen is S/NT/ND. Overall, the physical exam is relatively benign. Plan for surgery to evaluate patient. Reason For Visit: PID,UNCONT DM, LEUKOCYTOSIS Physical Exam Vital Signs: Temp Pulse Resp BP Pulse Ox 97.4 F 96 16 139/73 H 97 02/02/19 11:26 02/02/19 11:26 02/02/19 11:26 02/02/19 11:26 02/02/19 11:26 Intake & Output 02/01/19 02/02/19 02/03/19 06:59 06:59 06:59 Intake Total 2751 700 750 Output Total 480 1800 Balance 2271 -1100 750 Weight 141 kg 141 kg Results Laboratory Results: 02/02/19 05:05 02/02/19 05:05 02/01/19 02/02/19 02/02/19 06:40 05:05 05:05 WBC 17.6 H RBC 3.28 L Hgb 9.0 L Hct 26.7 L MCV 81 MCH 27.4 MCHC 33.7 RDW 13.5 Plt Count 326 Seg Neutrophils % 86.2 H Lymphocytes % 7.2 L Monocytes % 5.9 Eosinophils % 0.5 Basophils % 0.2 Absolute Neutrophils 15.2 H Absolute Lymphocytes 1.3 Absolute Monocytes 1.0 Absolute Eosinophils 0.1 Absolute Basophils 0.0 Sodium 133.2 L 132.7 L Potassium 4.5 3.9 Chloride 102 99 Carbon Dioxide 22 21 L Anion Gap 9 13 BUN 37 H 45 H Creatinine 2.44 H 2.47 H Est GFR ( Amer) 26 L 26 L Est GFR (Non-Af Amer) 21 L 21 L Glucose 154 H 123 H Calcium 8.8 8.6 Total Bilirubin 0.9 0.6 AST 17 15 ALT 30 24 Alkaline Phosphatase 140 H 118 Total Protein 5.7 L 5.6 L Albumin 2.5 L 2.4 L Impressions: Transvaginal US 01/27/19 06:07 IMPRESSION: Left hydrosalpinx or pyosalpinx. Correlate with pelvic exam. Pelvis Ultrasound 02/01/19 09:38 IMPRESSION: LIMITED STUDY. CYSTIC AREA IN THE LEFT OVARY AND QUESTIONABLE FLUID IN THE LEFT FALLOPIAN TUBE. LIMITED VISUALIZATION DUE TO TRANSABDOMINAL TECHNIQUE AND THE PATIENT'S BODY HABITUS. IF FURTHER EVALUATION IS INDICATED, AN MRI OF THE PELVIS MAY BE NECESSARY FOR MORE COMPLETE VISUALIZATION. Abdomen Ultrasound 02/01/19 09:39 IMPRESSION: LIMITED STUDY. HEPATOMEGALY WITH FATTY INFILTRATION OF THE LIVER. SMALL AMOUNT OF FREE FLUID IN THE SUBHEPATIC SPACE. Abdomen/Pelvis CT 02/01/19 16:38 IMPRESSION: When compared to the previous examination there has been interval worsening of inflammatory change and fluid in the abdomen and pelvis with some thickening of the peritoneal fascia, fluid around the liver and in the right subphrenic space and increasing fluid in the pelvis as well as increase in size of the soft tissue density in the left adnexa. Recommend further evaluation with intravenous contrast. Based on this examination possibility of TOA and/or pyelonephritis is not excluded. Clinical correlation would also be beneficial Development of small amount of inflammatory infiltrate in the right lung base with right pleural effusion Chest X-Ray 02/02/19 00:00 IMPRESSION: Mild patchy right basilar airspace disease suspicious for pneumonia. Assessment and Plan - Diagnosis (1) Abdominal pain Qualifiers: Abdominal location: upper abdomen, unspecified Qualified Code(s): R10.10 - Upper abdominal pain, unspecified Is this a current diagnosis for this admission?: Yes Plan: Patient reports adequate pain control US consistent is the left ovarian cyst and left hydrosalpinx. Ovarian cyst and hydrosalpinx should not cause this much pain. Multiple CT Abd/Pelvis shows worsening of inflammatory change and fluid in the abdomen and pelvis, thickening of the peritoneal fascia, increasing fluid in the pelvis, increase in size of soft tissue in the L adnexa CT indicative of possible TOA/pyelonephritis Empiric antibiotic coverage Surgery consulted, appreciate their recommendations Possible transfer to tertiary center [facility], [facility] as needed pain (2) Hydrosalpinx Is this a current diagnosis for this admission?: Yes Plan: As seen on ultrasound Likely not the cause of her significant abdominal pain Triple antibiotic therapy -Rocephin, metronidazole, doxycycline (3) Fatty liver disease, nonalcoholic Is this a current diagnosis for this admission?: Yes Plan: Fatty liver noted on ultrasound No hepatomegaly Weight loss should be encouraged (4) Hyperlipidemia Qualifiers: Hyperlipidemia type: unspecified Qualified Code(s): E78.5 - Hyperlipidemia, unspecified Is this a current diagnosis for this admission?: Yes Plan: Continue simvastatin 20 mg daily (5) Left ovarian cyst Is this a current diagnosis for this admission?: Yes Plan: Measuring approximately 2 x 2.5 cm. 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 (7) Hypertension Qualifiers: Hypertension type: essential hypertension Qualified Code(s): I10 - Essential (primary) hypertension Is this a current diagnosis for this admission?: Yes Plan: Adequate BP control today, SBP 120-130 Lisinopril 30 mg daily Furosemide 20 mg daily (8) Morbid obesity with BMI of 50.0-59.9, adult Is this a current diagnosis for this admission?: Yes Plan: The patient's morbid obesity is a significant comorbidity for her DM, HTN and HLD All risk factors for heart disease Consistent carbohydrate cardiac diet - Time Time Spent with patient: 15-24 minutes Smoking Cessation Education: 3 to 10 minutes Medications reviewed and adjusted accordingly: Yes Anticipated discharge: Home Within: within 24 hours - Inpatient Certification Based on my medical assessment, after consideration of the patient's comorbidities, presenting symptoms, or acuity I expect that the services needed warrant INPATIENT care.: Yes I certify that my determination is in accordance with my understanding of Medicare's requirements for reasonable and necessary INPATIENT services [42 CFR 412.3e].: Yes Medical Necessity: Risk of Diagnosis Which Will Require Inpatient Eval/Care/Monitoring
[2019-02-02] MEDS: IBUPROFEN 800 MG TABLET PO PRN (20:51)
[2019-02-02] MEDS: SIMETHICONE 80 MG TAB.CHEW PO PRN (20:51)
[2019-02-02] MEDS: HYDROMORPHONE HCL INJ/PF 2 MG/ML AMPULE IV PRN (20:52)
[2019-02-02] MEDS: INSULIN GLARGINE,HUM.REC.ANLOG 1,000 UNIT/10 ML VIAL SUBCUT SCH (22:01)
[2019-02-02] MEDS: SIMVASTATIN 10 MG TABLET PO SCH (22:02)
--- NOTE | 2019-02-03 00:23 | PDOC CONSULTATION ---
Consultation Consult Date: 02/02/19 Consult reason:: persistent abdominal pains History of Present Illness Admission Date/PCP: 01/27/19 09:52 KETAN VALLE DO Patient complains of: abdominal pains History of Present Illness: RUTH WOOD is a 44 year old female who was admitted about a week ago for PID. Surgery is being consulted for persistent abdominal pains and CT scan findings of increasininf inflammatory changes and fluid in the abd and pelvis with thickening of peritoneal fascia,fluid around the liver and in the subphrenic space and increasing fluid in the pelvis and soft tissue density left adnexa. A TOA and/or pyelonephritis not excluded. Past Medical History Cardiac Medical History: Reports: Hyperlipidema, Hypertension Denies: Coronary Artery Disease, Myocardial Infarction Pulmonary Medical History: Reports: Asthma, Sleep Apnea - She wears CPAP at home Denies: Bronchitis, Chronic Obstructive Pulmonary Disease (COPD), Pneumonia Neurological Medical History: Denies: Seizures Endocrine Medical History: Reports: Diabetes Mellitus Type 2 Musculoskeltal Medical History: Denies: Arthritis, Fibromyalgia Psychiatric Medical History: Denies: Depression Hematology: Reports: Anemia Denies: Bleeding Tendencies Past Surgical History Past Surgical History: Reports: Section - Twice, Orthopedic Surgery - Heel spur surgery, bilateral carpal tunnel surgery, left BLK amputation, Other - 2 c section, left bone spur removal, left foot surg, R eye surg as child Social History Lives with: Family Smoking Status: Former Smoker Cigarettes Packs Per Day: 4 Number of Years Smokin Frequency of Alcohol Use: None Hx Recreational Drug Use: Yes Drugs: Marijuana Hx Prescription Drug Abuse: No - Advance Directive Resuscitation Status: Full Code Family History Family History: CAD, DM, Hyperlipidemia, Hypertension Parental Family History Reviewed: Yes Children Family History Reviewed: No Sibling(s) Family History Reviewed.: No Medication/Allergy Home Medications: Aspirin [Adult Low Dose Aspirin EC] 81 mg PO DAILY 11/20/17 Cetirizine HCl [Zyrtec 10 mg Tablet] 10 mg PO DAILY 11/20/17 Furosemide [Lasix 20 mg Tablet] 20 mg PO DAILYP PRN 11/20/17 Insulin Detemir [Levemir Flextouch] 74 units SQ DAILY 11/20/17 Lisinopril/Hydrochlorothiazide [Zestoretic 20-25 mg Tablet] 1 tab PO DAILY 11/20/17 Pregabalin [Lyrica] 150 mg PO Q8HP PRN 11/20/17 Simvastatin [Zocor 20 mg Tablet] 20 mg PO QHS 11/20/17 Ascorbic Acid [Vitamin C 500 mg Tablet] 500 mg PO BID tablet 11/24/17 Dulaglutide [Trulicity] 1.5 mg SQ MO@1000 01/26/18 Insulin Lispro [Humalog Insulin 100 Unit/1 ml 3 ml Vial] 0 unit SUBCUT .SLD SCALE 01/26/18 Oxycodone HCl [Oxy-Ir 5 mg Tablet] 15 mg PO Q6HP PRN 01/26/18 Albuterol Sulfate [Proair Hfa Inhalation Aerosol 8.5 gm Mdi] 2 puff IH Q6HP PRN 01/27/19 Clotrimazole [Athletic Foot Cream] 1 applic TP BID MDD left forearm 01/27/19 Ranitidine HCl [Zantac 150 mg Tablet] 150 mg PO BID 01/27/19 Varenicline Tartrate [Chantix 1 Mg Tablet] 1 mg PO BIDPCBS 01/27/19 Allergies/Adverse Reactions: No Known Allergies Allergy (Verified 01/26/19 22:01) Review of Systems Constitutional: PRESENT: chills, fever(s) Ears: PRESENT: other - no visual/hearing changes Cardiovascular: PRESENT: other - no chest pains/cough Gastrointestinal: PRESENT: abdominal pain Genitourinary: PRESENT: other - no dysuria Physical Exam Vital Signs: Temp Pulse Resp BP Pulse Ox 98.1 F 103 H 20 148/75 H 100 02/02/19 19:49 02/02/19 19:49 02/02/19 19:49 02/02/19 19:49 02/02/19 19:49 Intake & Output 02/01/19 02/02/19 02/03/19 06:59 06:59 06:59 Intake Total 2751 700 1100 Output Total 480 1800 Balance 2271 -1100 1100 Weight 141 kg 141 kg General appearance: PRESENT: mild distress Head exam: PRESENT: atraumatic Eye exam: PRESENT: conjunctiva pink Mouth exam: PRESENT: moist Neck exam: PRESENT: full ROM Respiratory exam: PRESENT: clear to auscultation mary Cardiovascular exam: PRESENT: RRR Pulses: PRESENT: normal radial pulses Vascular exam: PRESENT: normal capillary refill GI/Abdominal exam: PRESENT: soft, tenderness - both lower quadrants, RUQ and spraumbilical areas Rectal exam: PRESENT: deferred Extremities exam: PRESENT: other - Left BKA stump looks good. Wears aprosthesis and ambulates Musculoskeletal exam: PRESENT: ambulatory Neurological exam: PRESENT: alert, awake, oriented to person, oriented to place, oriented to time, oriented to situation Psychiatric exam: PRESENT: appropriate affect Skin exam: PRESENT: normal color, warm Results Laboratory Results: 02/02/19 05:05 02/02/19 05:05 02/02/19 02/02/19 05:05 05:05 WBC 17.6 H RBC 3.28 L Hgb 9.0 L Hct 26.7 L MCV 81 MCH 27.4 MCHC 33.7 RDW 13.5 Plt Count 326 Seg Neutrophils % 86.2 H Lymphocytes % 7.2 L Monocytes % 5.9 Eosinophils % 0.5 Basophils % 0.2 Absolute Neutrophils 15.2 H Absolute Lymphocytes 1.3 Absolute Monocytes 1.0 Absolute Eosinophils 0.1 Absolute Basophils 0.0 Sodium 132.7 L Potassium 3.9 Chloride 99 Carbon Dioxide 21 L Anion Gap 13 BUN 45 H Creatinine 2.47 H Est GFR ( Amer) 26 L Est GFR (Non-Af Amer) 21 L Glucose 123 H Calcium 8.6 Total Bilirubin 0.6 AST 15 ALT 24 Alkaline Phosphatase 118 Total Protein 5.6 L Albumin 2.4 L Impressions: Transvaginal US 01/27/19 06:07 IMPRESSION: Left hydrosalpinx or pyosalpinx. Correlate with pelvic exam. Pelvis Ultrasound 02/01/19 09:38 IMPRESSION: LIMITED STUDY. CYSTIC AREA IN THE LEFT OVARY AND QUESTIONABLE FLUID IN THE LEFT FALLOPIAN TUBE. LIMITED VISUALIZATION DUE TO TRANSABDOMINAL TECHNIQUE AND THE PATIENT'S BODY HABITUS. IF FURTHER EVALUATION IS INDICATED, AN MRI OF THE PELVIS MAY BE NECESSARY FOR MORE COMPLETE VISUALIZATION. Abdomen Ultrasound 02/01/19 09:39 IMPRESSION: LIMITED STUDY. HEPATOMEGALY WITH FATTY INFILTRATION OF THE LIVER. SMALL AMOUNT OF FREE FLUID IN THE SUBHEPATIC SPACE. Abdomen/Pelvis CT 02/01/19 16:38 IMPRESSION: When compared to the previous examination there has been interval worsening of inflammatory change and fluid in the abdomen and pelvis with some thickening of the peritoneal fascia, fluid around the liver and in the right subphrenic space and increasing fluid in the pelvis as well as increase in size of the soft tissue density in the left adnexa. Recommend further evaluation with intravenous contrast. Based on this examination possibility of TOA and/or pyelonephritis is not excluded. Clinical correlation would also be beneficial Development of small amount of inflammatory infiltrate in the right lung base with right pleural effusion Chest X-Ray 02/02/19 00:00 IMPRESSION: Mild patchy right basilar airspace disease suspicious for pneumonia. Assessment & Plan - Diagnosis (1) PID (acute pelvic inflammatory disease) Is this a current diagnosis for this admission?: Yes (2) Abdominal pain Qualifiers: Abdominal location: upper abdomen, unspecified Qualified Code(s): R10.10 - Upper abdominal pain, unspecified Is this a current diagnosis for this admission?: Yes (3) Leukocytosis Qualifiers: Leukocytosis type: unspecified Qualified Code(s): D72.829 - Elevated white blood cell count, unspecified Is this a current diagnosis for this admission?: Yes - Time Time Spent: 30 to 50 Minutes - Inpatient Certification Medical Necessity: Need for IV Antibiotics - Plan Summary Plan Summary: 44 yo female with history of DM, Hypertension,neuropathy and hyperlipidemia c/o abdominal pains started about a week ago. Initial pains were lower abdomen with no N/V. She was seen and admitted to [facility] for PID and started on IV antibiotics. She is tolerating a liquid diet since admission. Her abdominal pains are now Primarily RUQ and supra-umbilical areas though still with lower abdomonal/pelvix pains. Her WBC remains elevated from 18,000 on 01/30 to 17.6 today. Impression: PID with possible TOA left side Doubt any general surgical condition Recommendations !) Continue IV antibiotic therapy 2) Will re-evaluate in am with repeat WBC 3) May need diagnostic laparoscopy since apparently should be much improved by now with antibiotic therapy according to Dr Honeycutt
[2019-02-03] MEDS: DOXYCYCLINE HYCLATE 100 MG in DEXTROSE 5%-WATER 250 ML IV SCH (05:59)
[2019-02-03 06:29] LABS: ABSOLUTE EOSINOPHILS # (AUTO) 0.1 10^3/uL (0.0-0.6); ABSOLUTE LYMPHOCYTES (AUTO) 1.6 10^3/uL (0.5-4.7); ABSOLUTE MONOCYTES (AUTO) 1.4 10^3/uL (0.1-1.4); ABSOLUTE NEUT (AUTO) 16.6 10^3/uL (1.7-8.2); BASOPHILS % (AUTO) 0.2 % (0-2); EOSINOPHILS % (AUTO) 0.7 % (0-6); HEMATOCRIT 25.8 % (36.0-47.0); HEMOGLOBIN 8.8 g/dL (12.0-15.5); LYMPHOCYTES % (AUTO) 7.9 % (13-45); MEAN CORPUSCULAR HEMOGLOBIN 27.7 pg (27.0-33.4); MEAN CORPUSCULAR VOLUME 81 fl (80-97); MONOCYTES % (AUTO) 7.2 % (3-13); PLATELET COUNT 326 10^3/uL (150-450); RED BLOOD COUNT 3.17 10^6/uL (3.72-5.28); RED CELL DISTRIBUTION WIDTH 13.7 % (11.5-14.0); TOTAL CELLS COUNTED % (AUTO) 100 %; WHITE BLOOD COUNT 19.8 10^3/uL (4.0-10.5)
[2019-02-03] MEDS: INSULIN LISPRO 100 UNIT/ML 3 ML VIAL SUBCUT SCH ×3 (07:41→14:45)
[2019-02-03] MEDS: METRONIDAZOLE 500 MG/NS RTU 500 MG/100 ML RTUPB IV SCH ×2 (09:05→21:15)
[2019-02-03] MEDS: FUROSEMIDE 20 MG TABLET PO SCH (09:06)
[2019-02-03] MEDS: CETIRIZINE 10 MG TABLET PO SCH (09:06)
[2019-02-03] MEDS: LISINOPRIL 10 MG TABLET PO SCH (09:06)
[2019-02-03] MEDS: FAMOTIDINE 20 MG TABLET PO SCH (09:07)
[2019-02-03] MEDS: ASCORBIC ACID 500 MG TABLET PO SCH (09:07)
[2019-02-03] MEDS: ASPIRIN 81 MG TABLET, ENT COATED PO SCH (09:07)
--- NOTE | 2019-02-03 10:05 | PDOC PROGRESS REPORT ---
Subjective Progress Note for:: 02/03/19 Subjective:: feels better. less abdominal pains. Tolerating fluids Reason For Visit: PID,UNCONT DM, LEUKOCYTOSIS Physical Exam Vital Signs: Temp Pulse Resp BP Pulse Ox 97.9 F 86 18 135/70 H 100 02/03/19 07:39 02/03/19 07:39 02/03/19 07:39 02/03/19 07:39 02/03/19 07:39 Intake & Output 02/02/19 02/03/19 02/04/19 06:59 06:59 06:59 Intake Total 700 1500 Output Total 1800 400 Balance -1100 1100 Weight 141 kg 141.2 kg Exam: abdomen is soft with minimal lower abdominal pains Results Laboratory Results: 02/03/19 05:56 02/02/19 05:05 02/03/19 02/03/19 05:56 05:56 WBC 19.8 H RBC 3.17 L Hgb 8.8 L Hct 25.8 L MCV 81 MCH 27.7 MCHC 34.0 RDW 13.7 Plt Count 326 Seg Neutrophils % 84.0 H Lymphocytes % 7.9 L Monocytes % 7.2 Eosinophils % 0.7 Basophils % 0.2 Absolute Neutrophils 16.6 H Absolute Lymphocytes 1.6 Absolute Monocytes 1.4 Absolute Eosinophils 0.1 Absolute Basophils 0.0 Blood Type B POSITIVE Antibody Screen NEGATIVE Impressions: Transvaginal US 01/27/19 06:07 IMPRESSION: Left hydrosalpinx or pyosalpinx. Correlate with pelvic exam. Pelvis Ultrasound 02/01/19 09:38 IMPRESSION: LIMITED STUDY. CYSTIC AREA IN THE LEFT OVARY AND QUESTIONABLE FLUID IN THE LEFT FALLOPIAN TUBE. LIMITED VISUALIZATION DUE TO TRANSABDOMINAL TECHNIQUE AND THE PATIENT'S BODY HABITUS. IF FURTHER EVALUATION IS INDICATED, AN MRI OF THE PELVIS MAY BE NECESSARY FOR MORE COMPLETE VISUALIZATION. Abdomen Ultrasound 02/01/19 09:39 IMPRESSION: LIMITED STUDY. HEPATOMEGALY WITH FATTY INFILTRATION OF THE LIVER. SMALL AMOUNT OF FREE FLUID IN THE SUBHEPATIC SPACE. Abdomen/Pelvis CT 02/01/19 16:38 IMPRESSION: When compared to the previous examination there has been interval worsening of inflammatory change and fluid in the abdomen and pelvis with some thickening of the peritoneal fascia, fluid around the liver and in the right subphrenic space and increasing fluid in the pelvis as well as increase in size of the soft tissue density in the left adnexa. Recommend further evaluation with intravenous contrast. Based on this examination possibility of TOA and/or pyelonephritis is not excluded. Clinical correlation would also be beneficial Development of small amount of inflammatory infiltrate in the right lung base with right pleural effusion Chest X-Ray 02/02/19 00:00 IMPRESSION: Mild patchy right basilar airspace disease suspicious for pneumonia. Assessment & Plan - Diagnosis (1) PID (acute pelvic inflammatory disease) Is this a current diagnosis for this admission?: Yes (2) Abdominal pain Qualifiers: Abdominal location: upper abdomen, unspecified Qualified Code(s): R10.10 - Upper abdominal pain, unspecified Is this a current diagnosis for this admission?: Yes (3) Leukocytosis Qualifiers: Leukocytosis type: unspecified Qualified Code(s): D72.829 - Elevated white blood cell count, unspecified Is this a current diagnosis for this admission?: Yes - Time Time Spent with patient: Less than 15 minutes - Plan Summary Plan Summary: Clinically appears to be improving but WBC increased to 19.8 If [employer] decides to do diagnostic laparoscopy, will be available to assist Dr Goodman called me about doing diagnostic laparoscopy to be scheduled at 6 pm today.
[2019-02-03] MEDS: CEFTRIAXONE SODIUM 1,000 MG in DEXTROSE 5%-WATER 50 ML IV SCH (12:09)
[2019-02-03] MEDS: SIMETHICONE 80 MG TAB.CHEW PO PRN (12:14)
[2019-02-03] MEDS: DEXTROSE 50%-WATER SYRINGE 12.5 GM/25 ML DOSE IV PRN ×2 (12:28→17:27)
[2019-02-03] MEDS ORDERED: ROCURONIUM BROMIDE INJ 50 MG/5 ML VIAL IV ONE (14:21)
[2019-02-03] MEDS ORDERED: NEOSTIGMINE METHYLSULFATE 10 MG/10 ML VIAL ONE (14:21)
[2019-02-03] MEDS ORDERED: SUCCINYLCHOLINE CHLORIDE INJ 200 MG/10 ML VIAL ONE (14:21)
[2019-02-03] MEDS ORDERED: MORPHINE SULFATE 10 MG/ML INJ IV PRN (14:24)
[2019-02-03 14:42] LABS: ANION GAP 11 (5-19); BLOOD UREA NITROGEN 52 mg/dL (7-20); CARBON DIOXIDE 21 mmol/L (22-30); CHLORIDE 99 mmol/L (98-107); SODIUM 131.1 mmol/L (137-145)
[2019-02-03 14:49] LABS: GLUCOSE 57 mg/dL (75-110)
--- NOTE | 2019-02-03 16:08 | PDOC PROGRESS REPORT ---
Subjective Progress Note for:: 02/03/19 Subjective:: pt indicates today that her pain "is not as bad as before". she is NPO since midnight Reason For Visit: PID,UNCONT DM, LEUKOCYTOSIS Physical Exam - Physical Exam Vital Signs: Temp Pulse Resp BP Pulse Ox 97.9 F 86 18 135/70 H 100 02/03/19 07:39 02/03/19 07:39 02/03/19 07:39 02/03/19 07:39 02/03/19 07:39 Intake & Output 02/02/19 02/03/19 02/04/19 06:59 06:59 06:59 Intake Total 700 1500 Output Total 1800 400 600 Balance -1100 1100 -600 Weight 141 kg 141.2 kg General appearance: PRESENT: no acute distress, cooperative, obese - tenderness in left lower quadrant consistent with previous exams Result Laboratory Results: 02/03/19 05:56 02/03/19 05:56 02/03/19 02/03/19 02/03/19 05:56 05:56 05:56 WBC 19.8 H RBC 3.17 L Hgb 8.8 L Hct 25.8 L MCV 81 MCH 27.7 MCHC 34.0 RDW 13.7 Plt Count 326 Seg Neutrophils % 84.0 H Lymphocytes % 7.9 L Monocytes % 7.2 Eosinophils % 0.7 Basophils % 0.2 Absolute Neutrophils 16.6 H Absolute Lymphocytes 1.6 Absolute Monocytes 1.4 Absolute Eosinophils 0.1 Absolute Basophils 0.0 Sodium 131.1 L Potassium 4.0 Chloride 99 Carbon Dioxide 21 L Anion Gap 11 BUN 52 H Creatinine 3.01 H Est GFR ( Amer) 20 L Est GFR (Non-Af Amer) 17 L Glucose 57 L Calcium 9.0 Blood Type B POSITIVE Antibody Screen NEGATIVE Impressions: Transvaginal US 01/27/19 06:07 IMPRESSION: Left hydrosalpinx or pyosalpinx. Correlate with pelvic exam. Pelvis Ultrasound 02/01/19 09:38 IMPRESSION: LIMITED STUDY. CYSTIC AREA IN THE LEFT OVARY AND QUESTIONABLE FLUID IN THE LEFT FALLOPIAN TUBE. LIMITED VISUALIZATION DUE TO TRANSABDOMINAL TECHNIQUE AND THE PATIENT'S BODY HABITUS. IF FURTHER EVALUATION IS INDICATED, AN MRI OF THE PELVIS MAY BE NECESSARY FOR MORE COMPLETE VISUALIZATION. Abdomen Ultrasound 02/01/19 09:39 IMPRESSION: LIMITED STUDY. HEPATOMEGALY WITH FATTY INFILTRATION OF THE LIVER. SMALL AMOUNT OF FREE FLUID IN THE SUBHEPATIC SPACE. Abdomen/Pelvis CT 02/01/19 16:38 IMPRESSION: When compared to the previous examination there has been interval worsening of inflammatory change and fluid in the abdomen and pelvis with some thickening of the peritoneal fascia, fluid around the liver and in the right subphrenic space and increasing fluid in the pelvis as well as increase in size of the soft tissue density in the left adnexa. Recommend further evaluation with intravenous contrast. Based on this examination possibility of TOA and/or pyelonephritis is not excluded. Clinical correlation would also be beneficial Development of small amount of inflammatory infiltrate in the right lung base with right pleural effusion Chest X-Ray 02/02/19 00:00 IMPRESSION: Mild patchy right basilar airspace disease suspicious for pneumonia. Assessment & Plan - Diagnosis (2) Abdominal pain Qualifiers: Abdominal location: upper abdomen, unspecified Qualified Code(s): R10.10 - Upper abdominal pain, unspecified Is this a current diagnosis for this admission?: Yes (3) Hydrosalpinx Is this a current diagnosis for this admission?: Yes (4) Leukocytosis Qualifiers: Leukocytosis type: unspecified Qualified Code(s): D72.829 - Elevated white blood cell count, unspecified Is this a current diagnosis for this admission?: Yes (5) Acute pain Is this a current diagnosis for this admission?: Yes - Time Time Spent with patient: Less than 15 minutes Anticipated discharge: Home Within: within 48 hours - Inpatient Certification Based on my medical assessment, after consideration of the patient's comorbidities, presenting symptoms, or acuity I expect that the services needed warrant INPATIENT care.: Yes I certify that my determination is in accordance with my understanding of Medicare's requirements for reasonable and necessary INPATIENT services [42 CFR 412.3e].: Yes Medical Necessity: Need For IV Fluids, Need for Pain Control, Need for IV Antibiotics, Need for Surgery - Plan Summary Plan Summary: Surgery feels pertinent to explore abdomen and remove ovary/fallopian tube as needed. Will proceed with a diagnostic lap today and Dr. Pierre has agreed to assist. Plan explained to patient who understands and is agreement.
--- NOTE | 2019-02-03 16:42 | PDOC PROGRESS REPORT ---
Subjective Progress Note for:: 02/03/19 Subjective:: RUTH WOOD is a 44 year old female with history of diabetes, hypertension, neuropathy and hyperlipidemia. She was initially admitted with abdominal pain last week. Abd/Pelvic US revealed L ovarian cyst but patient's pain seemed out of proportion to these findings. CT Abd/Pelvis revealed inflammatory changes and fluid in the abdomen and pelvis with some thickening of the peritoneal fascia, fluid around the liver in the right subphrenic space and fluid in the pelvis as well as increase in size of the soft tissue density in the left adnexa. Possible TOA/pyelonephritis not excluded. Patient was seen this afternoon on rounds, she appears very uncomfortable, she is shifting in the bed and is complaining of abdominal pain. She also states that she has a constant feeling that she "needs to have a large bowel movement." The patient endorses abdominal pain with movement. Patient states that her PRN oral analgesia has not been controlling her pain today. LCTA. S1-S2. Abd S/NT/ND. Overall, the physical exam is relatively benign. Plan to add PRN IV pain medication to the patient's regimen. Surgery planning for ex lap later this evening. Reason For Visit: PID,UNCONT DM, LEUKOCYTOSIS Physical Exam Vital Signs: Temp Pulse Resp BP Pulse Ox 98.7 F 97 16 132/71 H 98 02/03/19 16:17 02/03/19 16:17 02/03/19 16:17 02/03/19 16:17 02/03/19 16:17 Intake & Output 02/02/19 02/03/19 02/04/19 06:59 06:59 06:59 Intake Total 700 1500 Output Total 1800 400 600 Balance -1100 1100 -600 Weight 141 kg 141.2 kg General appearance: PRESENT: morbidly obese Head exam: PRESENT: atraumatic Eye exam: PRESENT: conjunctiva pink, PERRLA Mouth exam: PRESENT: moist, tongue midline Neck exam: PRESENT: full ROM Respiratory exam: PRESENT: clear to auscultation mary, symmetrical, unlabored Cardiovascular exam: PRESENT: +S1, +S2 Pulses: PRESENT: normal radial pulses, normal dorsalis pedis pul Vascular exam: PRESENT: normal capillary refill GI/Abdominal exam: PRESENT: normal bowel sounds, soft. ABSENT: distended, firm, guarding Rectal exam: PRESENT: deferred Extremities exam: PRESENT: full ROM. ABSENT: pedal edema Musculoskeletal exam: PRESENT: ambulatory, full ROM, normal inspection Neurological exam: PRESENT: alert, awake, oriented to person, oriented to place, oriented to time, oriented to situation Psychiatric exam: PRESENT: appropriate affect Skin exam: PRESENT: dry, intact, normal color Results Laboratory Results: 02/03/19 05:56 02/03/19 05:56 02/03/19 02/03/19 02/03/19 05:56 05:56 05:56 WBC 19.8 H RBC 3.17 L Hgb 8.8 L Hct 25.8 L MCV 81 MCH 27.7 MCHC 34.0 RDW 13.7 Plt Count 326 Seg Neutrophils % 84.0 H Lymphocytes % 7.9 L Monocytes % 7.2 Eosinophils % 0.7 Basophils % 0.2 Absolute Neutrophils 16.6 H Absolute Lymphocytes 1.6 Absolute Monocytes 1.4 Absolute Eosinophils 0.1 Absolute Basophils 0.0 Sodium 131.1 L Potassium 4.0 Chloride 99 Carbon Dioxide 21 L Anion Gap 11 BUN 52 H Creatinine 3.01 H Est GFR ( Amer) 20 L Est GFR (Non-Af Amer) 17 L Glucose 57 L Calcium 9.0 Blood Type B POSITIVE Antibody Screen NEGATIVE Impressions: Transvaginal US 01/27/19 06:07 IMPRESSION: Left hydrosalpinx or pyosalpinx. Correlate with pelvic exam. Pelvis Ultrasound 02/01/19 09:38 IMPRESSION: LIMITED STUDY. CYSTIC AREA IN THE LEFT OVARY AND QUESTIONABLE FLUID IN THE LEFT FALLOPIAN TUBE. LIMITED VISUALIZATION DUE TO TRANSABDOMINAL TECHNIQUE AND THE PATIENT'S BODY HABITUS. IF FURTHER EVALUATION IS INDICATED, AN MRI OF THE PELVIS MAY BE NECESSARY FOR MORE COMPLETE VISUALIZATION. Abdomen Ultrasound 02/01/19 09:39 IMPRESSION: LIMITED STUDY. HEPATOMEGALY WITH FATTY INFILTRATION OF THE LIVER. SMALL AMOUNT OF FREE FLUID IN THE SUBHEPATIC SPACE. Abdomen/Pelvis CT 02/01/19 16:38 IMPRESSION: When compared to the previous examination there has been interval worsening of inflammatory change and fluid in the abdomen and pelvis with some thickening of the peritoneal fascia, fluid around the liver and in the right subphrenic space and increasing fluid in the pelvis as well as increase in size of the soft tissue density in the left adnexa. Recommend further evaluation with intravenous contrast. Based on this examination possibility of TOA and/or pyelonephritis is not excluded. Clinical correlation would also be beneficial Development of small amount of inflammatory infiltrate in the right lung base with right pleural effusion Chest X-Ray 02/02/19 00:00 IMPRESSION: Mild patchy right basilar airspace disease suspicious for pneumonia. Status: Imported from PACS Assessment and Plan - Diagnosis (1) Abdominal pain Qualifiers: Abdominal location: upper abdomen, unspecified Qualified Code(s): R10.10 - Upper abdominal pain, unspecified Is this a current diagnosis for this admission?: Yes Plan: Patient reports adequate pain control US consistent is the left ovarian cyst and left hydrosalpinx. Ovarian cyst and hydrosalpinx should not cause this much pain. Multiple CT Abd/Pelvis shows worsening of inflammatory change and fluid in the abdomen and pelvis, thickening of the peritoneal fascia, increasing fluid in the pelvis, increase in size of soft tissue in the L adnexa CT indicative of possible TOA/pyelonephritis Empiric antibiotic coverage Surgery consulted, plan for ex-lap today Percocet as needed pain. Will add IV morphine since pain is not well controlled at this time. (2) Hydrosalpinx Is this a current diagnosis for this admission?: Yes Plan: As seen on ultrasound Likely not the cause of her significant abdominal pain Empiric triple antibiotic therapy -Rocephin, metronidazole, doxycycline (3) Left ovarian cyst Is this a current diagnosis for this admission?: Yes Plan: Measuring approximately 2 x 2.5 cm. Details of treatment plan as noted in above (4) Hyperlipidemia Qualifiers: Hyperlipidemia type: unspecified Qualified Code(s): E78.5 - Hyperlipidemia, unspecified Is this a current diagnosis for this admission?: Yes Plan: Continue simvastatin 20 mg daily (5) Diabetes Qualifiers: Diabetes mellitus type: type 2 Diabetes mellitus assisted insulin use: with assisted use Diabetes mellitus complication status: without complication Qualified Code(s): E11.9 - Type 2 diabetes mellitus without complications; Z79.4 - [facility] (current) use of insulin Is this a current diagnosis for this admission?: Yes Plan: H type 2 diabetes Good glucose control with Lantus and sliding scale Previous use of Invokana, 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 (6) Hypertension Qualifiers: Hypertension type: essential hypertension Qualified Code(s): I10 - Essential (primary) hypertension Is this a current diagnosis for this admission?: Yes Plan: Adequate BP control today, SBP 120-130 Lisinopril 30 mg daily Furosemide 20 mg daily (7) Morbid obesity with BMI of 50.0-59.9, adult Is this a current diagnosis for this admission?: Yes Plan: The patient's morbid obesity is a significant comorbidity for her DM, HTN and HLD All risk factors for heart disease Consistent carbohydrate cardiac diet (8) Fatty liver disease, nonalcoholic Is this a current diagnosis for this admission?: Yes Plan: Fatty liver noted on ultrasound No hepatomegaly Weight loss should be encouraged - Time Time Spent with patient: 15-24 minutes Medications reviewed and adjusted accordingly: Yes Anticipated discharge: Home Within: Other - WHEN MEDICALLY STABILIZED - Inpatient Certification Based on my medical assessment, after consideration of the patient's comorbidities, presenting symptoms, or acuity I expect that the services needed warrant INPATIENT care.: Yes I certify that my determination is in accordance with my understanding of Medicare's requirements for reasonable and necessary INPATIENT services [42 CFR 412.3e].: Yes Medical Necessity: Risk of Complication if Not Cared For in Hospital
[2019-02-03] MEDS ORDERED: HYDROMORPHONE HCL INJ/PF 2 MG/ML AMPULE ONE (19:45)
[2019-02-03] MEDS ORDERED: ACETAMINOPHEN 1,000 MG/100 ML RTUPB IV ONE (19:46)
[2019-02-03] MEDS ORDERED: FENTANYL CITRATE INJ/PF 100 MCG/2 ML AMPUL ONE (19:46)
[2019-02-03] MEDS ORDERED: PROPOFOL INJ 200 MG/20 ML VIAL IV ONE (19:46)
[2019-02-03] MEDS ORDERED: ONDANSETRON HCL INJ/PF 4 MG/2 ML SDV ONE (19:46)
[2019-02-03] MEDS ORDERED: MIDAZOLAM 2 MG/2 ML INJ ONE (19:46)
[2019-02-04] MEDS: FAMOTIDINE 20 MG TABLET PO SCH ×3 (00:57→22:20)
[2019-02-04] MEDS: INSULIN GLARGINE,HUM.REC.ANLOG 1,000 UNIT/10 ML VIAL SUBCUT SCH ×2 (00:57→22:49)
[2019-02-04] MEDS: SIMVASTATIN 10 MG TABLET PO SCH ×2 (00:58→22:20)
[2019-02-04] MEDS: FENTANYL CITRATE INJ/PF 100 MCG/2 ML AMPUL ONE ×2 (01:25→01:30)
[2019-02-04] MEDS ORDERED: ACETAMINOPHEN 1,000 MG/100 ML RTUPB IV PRN (01:36)
[2019-02-04] MEDS ORDERED: PROMETHAZINE HCL INJ 25 MG/1 ML VIAL IV PRN (01:36)
[2019-02-04] MEDS ORDERED: MORPHINE SULFATE 10 MG/ML INJ IV PRN (01:36)
[2019-02-04] MEDS ORDERED: OXYCODONE-ACETAMINOPHEN 5-325 MG TABLET PO PRN (01:36)
[2019-02-04] MEDS ORDERED: MEASLES,MUMPS&RUBELLA VACC/PF 0.5 ML VIAL SUBCUT PRN (01:36)
[2019-02-04] MEDS ORDERED: ACETAMINOPHEN 325 MG TABLET PO PRN (01:36)
[2019-02-04] MEDS ORDERED: DIPH/PERTUSS(ACELL)/TETANUS VAC/PF 0.5 ML SYR (>=10YO) IM PRN (01:36)
[2019-02-04] MEDS ORDERED: PIPERACILLIN/TAZOBACTAM 3.375 GM VIAL IV PRN (02:15)
[2019-02-04] MEDS ORDERED: ALBUTEROL SULFATE HFA (90 MCG/PUFF) 200 PUFF/8.5 GM MDI IH PRN (02:30)
[2019-02-04] MEDS ORDERED: CEFAZOLIN 1 GM/D5W RTU 1 GM/50 ML RTUPB IV SCH (03:00)
[2019-02-04] MEDS: OXYCODONE-ACETAMINOPHEN 5-325 MG TABLET PO PRN ×2 (04:55→11:55)
[2019-02-04] MEDS ORDERED: HYDROMORPHONE HCL INJ/PF 2 MG/ML AMPULE ONE (05:00)
[2019-02-04] MEDS: KETOROLAC TROMETHAMINE INJ/PF 30 MG/1 ML SDV IV SCH ×3 (06:18→22:20)
[2019-02-04] MEDS: IBUPROFEN 800 MG TABLET PO SCH ×4 (06:19→23:55)
[2019-02-04] MEDS ORDERED: PIPERACILLIN/TAZOBACTAM 3.375 GM VIAL IV ONE (06:36)
[2019-02-04 06:46] LABS: HEMATOCRIT 26.3 % (36.0-47.0); HEMOGLOBIN 8.9 g/dL (12.0-15.5); MEAN CORPUSCULAR HEMOGLOBIN 27.3 pg (27.0-33.4); MEAN CORPUSCULAR HGB CONC 33.9 g/dL (32.0-36.0); MEAN CORPUSCULAR VOLUME 81 fl (80-97); PLATELET COUNT 351 10^3/uL (150-450); RED BLOOD COUNT 3.26 10^6/uL (3.72-5.28); RED CELL DISTRIBUTION WIDTH 13.7 % (11.5-14.0); WHITE BLOOD COUNT 20.6 10^3/uL (4.0-10.5)
[2019-02-04 06:47] LABS: ALANINE AMINOTRANSFERASE 23 U/L (9-52); ALBUMIN 2.4 g/dL (3.5-5.0); ALKALINE PHOSPHATASE 108 U/L (38-126); ANION GAP 9 (5-19); ASPARTATE AMINO TRANSFERASE 16 U/L (14-36); BILIRUBIN,DIRECT 0.3 mg/dL (0.0-0.4); BILIRUBIN,TOTAL 0.3 mg/dL (0.2-1.3); BLOOD UREA NITROGEN 46 mg/dL (7-20); CALCIUM 8.8 mg/dL (8.4-10.2); CARBON DIOXIDE 22 mmol/L (22-30); CHLORIDE 104 mmol/L (98-107); GLUCOSE 70 mg/dL (75-110); POTASSIUM 4.2 mmol/L (3.6-5.0); SODIUM 135.2 mmol/L (137-145); TOTAL PROTEIN 5.6 g/dL (6.3-8.2)
[2019-02-04] MEDS: PIPERACILLIN SODIUM/TAZOBACTAM 3.375 GM in NORMAL SALINE 100 ML IV SCH ×3 (07:01→20:01)
--- NOTE | 2019-02-04 07:54 | OPERATIVE REPORT E ---
Operative Report NAME: RUTH WOOD : 1975 AGE: 44Y DATE OF SURGERY: 02/04/2019 ROOM: 207 PREOPERATIVE DIAGNOSIS: Pelvic inflammatory disease. POSTOPERATIVE DIAGNOSIS: Pelvic abscess, complex left adnexal abscess and inflammation, sepsis, leukocytosis. SURGEON: NOLA BROWN M.D. ALUM OPERATOR: Jose Pierre M.D. from General Surgery ANESTHESIA: Dr. Norman with general. FINDINGS: Thick omental inflammatory process with thick omental caking. There was obvious purulent exudate throughout the pelvic cavity and the abdominal cavity. There was a large approximately 2 cm abscess in the folds of the small bowel that was removed and the left adnexa was purulent mostly within the ovary with stranding throughout the adnexal area. The right ovary did look normal. The right fallopian tube looked slightly dilated. There were dense adhesions of the uterus to the anterior abdominal wall and mild filmy adhesions of the lower small bowel to the anterior abdominal wall as well, likely from the inflammatory process. ESTIMATED BLOOD LOSS: 500 mL. SPECIMENS REMOVED: The left fallopian tube and ovary as well as cultures. PROCEDURE: Diagnostic laparoscopy that was converted to an open laparotomy with pelvic and abdominal washout and left salpingo-oophorectomy. PROCEDURE IN DETAIL: The patient was taken to the operating room and prepared and draped in a normal sterile fashion in the supine position. A Santa catheter was placed to gravity. A skin incision above the umbilicus was made and a laparoscopic port was placed. However, we were not able to get adequate insufflation, so we converted to a cutdown and placed a Husain, at which time we were able to get adequate insufflation, and the patient was placed in Trendelenburg and the above findings were noted. As we were entering the abdomen for the port placement, we were noticing some purulent exudate that was coming through the incision at that time. We inspected the abdomen with the above findings noted with the exception of an ovary at this time because the ovaries were not visible. Due to the extensive adhesive process that was going on, we realized that a laparotomy was going to be necessary in order to be able to adequately localize the abscesses as well as do an adequate washout. Therefore, the camera was removed and the Husain was removed. A vertical incision was made starting at the laparoscopic site and extending vertically around the umbilicus and down to just above the pubic bone. This was done with the 10 blade scalpel and then carried through to the underlying layer of fascia with the same scalpel. Some careful sharp and blunt dissection was performed with both the scalpel and the Kim scissors in order to enter the abdominal cavity without bowel injury. A Bovie was used as that was deemed necessary for hemostasis. Once we were able to locate the uterus, the patient was placed in Trendelenburg. The uterus was identified. There were multiple omental cakings that had to be dissected through in order to identify the left ovary and fallopian tube. Once we were able to complete this, the left ovary and fallopian tube were isolated and clamped with a Samantha clamp and then removed using Metzenbaum's. Each bite with the Samantha clamp was tied off with an 0 Vicryl popoff. This was done at the utero-ovarian ligament until the ovary was freed from that ligament and was attached to the pelvic sidewall by the infundibulopelvic ligament. I then isolated that distally with a Samantha just below the ovary and removed the ovary and stitched the IP ligament with an 0 Monocryl popoff. Good hemostasis was maintained through this process. We then proceeded with the abdominal washout. During this time, Dr. Pierre did run the bowel and noted a large loculated abscess pocket measuring approximately 2 to 2.5 cm in the folds of the lower small bowel. He removed this with blunt dissection and some sharp dissection using forceps. We completed the washout with at least 3 L of sterile water until the water ran clear. We then reinspected our area of ovarian and fallopian tube removal and this was hemostatic. I then proceeded to look at the right adnexa. The right ovary did look intact and normal for a perimenopausal woman. The right fallopian tube was slightly dilated and *------*, but did not seem to be frankly affected, so this was left intact. Once we felt satisfied we had done a complete washout and there was no further interventions needed, we then closed the fascia with PDS. We closed the skin with sarah. We placed Telfa amari between the sarah soaked in Betadine, and the incision was covered with sterile dressing. The patient tolerated the procedure well. Sponge, lap, and needle counts were correct x2, and the patient was taken to recovery in stable condition. DICTATING PHYSICIAN: NOLA BROWN M.D. [id number] PHY#: [id number] ID: [id number] JOB#: [id number] ACCT: [id number] cc:NOLA BROWN M.D. >
--- NOTE | 2019-02-04 07:57 | PDOC PROGRESS REPORT ---
Subjective Progress Note for:: 02/04/19 Subjective:: pt indicates today that she feels "much better" incision pain is controlled with current pain regimen. is resting comfortably Reason For Visit: PID,UNCONT DM, LEUKOCYTOSIS, Pelvic abscess. Physical Exam - Physical Exam Vital Signs: Temp Pulse Resp BP Pulse Ox 98.6 F 102 H 16 145/78 H 97 02/04/19 05:29 02/04/19 05:29 02/04/19 04:53 02/04/19 05:29 02/04/19 05:29 Intake & Output 02/03/19 02/04/19 02/05/19 06:59 06:59 06:59 Intake Total 2700 50 Output Total 430 1000 Balance 2270 -950 Weight 141.2 kg General appearance: PRESENT: no acute distress, cooperative, obese GI/Abdominal exam: PRESENT: soft - dressing dry with no evidence of bleeding. m oist from telfa amari placed during OR Result Laboratory Results: 02/04/19 06:13 02/03/19 02/04/19 05:56 06:13 Sodium 131.1 L 135.2 L Potassium 4.0 4.2 Chloride 99 104 Carbon Dioxide 21 L 22 Anion Gap 11 9 BUN 52 H 46 H Creatinine 3.01 H 2.17 H Est GFR ( Amer) 20 L 30 L Est GFR (Non-Af Amer) 17 L 25 L Glucose 57 L 70 L Calcium 9.0 8.8 Total Bilirubin 0.3 AST 16 ALT 23 Alkaline Phosphatase 108 Total Protein 5.6 L Albumin 2.4 L Impressions: Transvaginal US 01/27/19 06:07 IMPRESSION: Left hydrosalpinx or pyosalpinx. Correlate with pelvic exam. Pelvis Ultrasound 02/01/19 09:38 IMPRESSION: LIMITED STUDY. CYSTIC AREA IN THE LEFT OVARY AND QUESTIONABLE FLUID IN THE LEFT FALLOPIAN TUBE. LIMITED VISUALIZATION DUE TO TRANSABDOMINAL TECHNIQUE AND THE PATIENT'S BODY HABITUS. IF FURTHER EVALUATION IS INDICATED, AN MRI OF THE PELVIS MAY BE NECESSARY FOR MORE COMPLETE VISUALIZATION. Abdomen Ultrasound 02/01/19 09:39 IMPRESSION: LIMITED STUDY. HEPATOMEGALY WITH FATTY INFILTRATION OF THE LIVER. SMALL AMOUNT OF FREE FLUID IN THE SUBHEPATIC SPACE. Abdomen/Pelvis CT 02/01/19 16:38 IMPRESSION: When compared to the previous examination there has been interval worsening of inflammatory change and fluid in the abdomen and pelvis with some thickening of the peritoneal fascia, fluid around the liver and in the right subphrenic space and increasing fluid in the pelvis as well as increase in size of the soft tissue density in the left adnexa. Recommend further evaluation with intravenous contrast. Based on this examination possibility of TOA and/or pyelonephritis is not excluded. Clinical correlation would also be beneficial Development of small amount of inflammatory infiltrate in the right lung base with right pleural effusion Chest X-Ray 02/02/19 00:00 IMPRESSION: Mild patchy right basilar airspace disease suspicious for pneumonia. Assessment & Plan - Diagnosis (2) Abdominal pain Qualifiers: Abdominal location: upper abdomen, unspecified Qualified Code(s): R10.10 - Upper abdominal pain, unspecified Is this a current diagnosis for this admission?: Yes (3) Hydrosalpinx Is this a current diagnosis for this admission?: Yes (4) Leukocytosis Qualifiers: Leukocytosis type: unspecified Qualified Code(s): D72.829 - Elevated white blood cell count, unspecified Is this a current diagnosis for this admission?: Yes (5) Acute pain Is this a current diagnosis for this admission?: Yes (6) Sepsis Qualifiers: Sepsis type: sepsis due to unspecified organism Qualified Code(s): A41.9 - Sepsis, unspecified organism Is this a current diagnosis for this admission?: Yes - Time Time Spent with patient: Less than 15 minutes Anticipated discharge: Home Within: within 48 hours - Inpatient Certification Based on my medical assessment, after consideration of the patient's comorbidities, presenting symptoms, or acuity I expect that the services needed warrant INPATIENT care.: Yes I certify that my determination is in accordance with my understanding of Medicare's requirements for reasonable and necessary INPATIENT services [42 CFR 412.3e].: Yes Medical Necessity: Need For IV Fluids, Need for Pain Control, Need for IV Antibiotics - Plan Summary Plan Summary: continue current management. Pt will need to have good glucose control to optimize wound healing. continue with sliding scale insulin and diabetic diet. Telfa amari to be removed on Thursday prior to discharge. Will remove sarah in the office after 2 weeks. Send patient home in 48 hours on keflex and doxycycline PO
[2019-02-04] MEDS: PRENATAL VITAMIN W DHA CAPSULE PO SCH (09:15)
[2019-02-04] MEDS: CETIRIZINE 10 MG TABLET PO SCH (09:15)
[2019-02-04] MEDS: FUROSEMIDE 20 MG TABLET PO SCH (09:16)
[2019-02-04] MEDS: DOCUSATE SODIUM 100 MG CAPSULE PO SCH ×2 (09:16→20:01)
[2019-02-04] MEDS: ASCORBIC ACID 500 MG TABLET PO SCH ×3 (09:16→20:01)
[2019-02-04] MEDS: LISINOPRIL 10 MG TABLET PO SCH (09:17)
[2019-02-04] MEDS: METRONIDAZOLE 500 MG/NS RTU 500 MG/100 ML RTUPB IV SCH ×2 (09:18→21:18)
--- NOTE | 2019-02-04 09:57 | PDOC PROGRESS REPORT ---
Subjective Progress Note for:: 02/04/19 Subjective:: pt stated she feels much better Reason For Visit: PID,UNCONT DM, LEUKOCYTOSIS Physical Exam - Physical Exam Vital Signs: Temp Pulse Resp BP Pulse Ox 98.6 F 94 16 133/72 H 98 02/04/19 07:50 02/04/19 07:50 02/04/19 07:50 02/04/19 07:50 02/04/19 07:50 Intake & Output 02/03/19 02/04/19 02/05/19 06:59 06:59 06:59 Intake Total 2700 150 Output Total 430 1000 Balance 2270 -850 Weight 141.2 kg General appearance: PRESENT: no acute distress GI/Abdominal exam: PRESENT: soft Result Laboratory Results: 02/04/19 06:13 02/04/19 06:13 02/03/19 02/04/19 02/04/19 05:56 06:13 06:13 WBC 20.6 H RBC 3.26 L Hgb 8.9 L Hct 26.3 L MCV 81 MCH 27.3 MCHC 33.9 RDW 13.7 Plt Count 351 Sodium 131.1 L 135.2 L Potassium 4.0 4.2 Chloride 99 104 Carbon Dioxide 21 L 22 Anion Gap 11 9 BUN 52 H 46 H Creatinine 3.01 H 2.17 H Est GFR ( Amer) 20 L 30 L Est GFR (Non-Af Amer) 17 L 25 L Glucose 57 L 70 L Calcium 9.0 8.8 Total Bilirubin 0.3 AST 16 ALT 23 Alkaline Phosphatase 108 Total Protein 5.6 L Albumin 2.4 L Impressions: Transvaginal US 01/27/19 06:07 IMPRESSION: Left hydrosalpinx or pyosalpinx. Correlate with pelvic exam. Pelvis Ultrasound 02/01/19 09:38 IMPRESSION: LIMITED STUDY. CYSTIC AREA IN THE LEFT OVARY AND QUESTIONABLE FLUID IN THE LEFT FALLOPIAN TUBE. LIMITED VISUALIZATION DUE TO TRANSABDOMINAL TECHNIQUE AND THE PATIENT'S BODY HABITUS. IF FURTHER EVALUATION IS INDICATED, AN MRI OF THE PELVIS MAY BE NECESSARY FOR MORE COMPLETE VISUALIZATION. Abdomen Ultrasound 02/01/19 09:39 IMPRESSION: LIMITED STUDY. HEPATOMEGALY WITH FATTY INFILTRATION OF THE LIVER. SMALL AMOUNT OF FREE FLUID IN THE SUBHEPATIC SPACE. Abdomen/Pelvis CT 02/01/19 16:38 IMPRESSION: When compared to the previous examination there has been interval worsening of inflammatory change and fluid in the abdomen and pelvis with some thickening of the peritoneal fascia, fluid around the liver and in the right subphrenic space and increasing fluid in the pelvis as well as increase in size of the soft tissue density in the left adnexa. Recommend further evaluation with intravenous contrast. Based on this examination possibility of TOA and/or pyelonephritis is not excluded. Clinical correlation would also be beneficial Development of small amount of inflammatory infiltrate in the right lung base with right pleural effusion Chest X-Ray 02/02/19 00:00 IMPRESSION: Mild patchy right basilar airspace disease suspicious for pneumonia. Assessment & Plan - Diagnosis (1) Abdominal pain Qualifiers: Abdominal location: upper abdomen, unspecified Qualified Code(s): R10.10 - Upper abdominal pain, unspecified Is this a current diagnosis for this admission?: Yes (2) Hydrosalpinx Is this a current diagnosis for this admission?: Yes (3) Chronic hypertension Is this a current diagnosis for this admission?: Yes (4) Fatty liver disease, nonalcoholic Is this a current diagnosis for this admission?: Yes (5) Left ovarian cyst Is this a current diagnosis for this admission?: Yes (6) Leukocytosis Qualifiers: Leukocytosis type: unspecified Qualified Code(s): D72.829 - Elevated white blood cell count, unspecified Is this a current diagnosis for this admission?: Yes (7) PID (acute pelvic inflammatory disease) Is this a current diagnosis for this admission?: Yes - Plan Summary Plan Summary: routine post op care continue antibiotics
[2019-02-04] MEDS: INSULIN LISPRO 100 UNIT/ML 3 ML VIAL SUBCUT SCH ×2 (10:43→22:32)
[2019-02-04] MEDS: ASPIRIN 81 MG TABLET, ENT COATED PO SCH (10:52)
[2019-02-04] MEDS: CEFAZOLIN 1 GM/D5W RTU 1 GM/50 ML RTUPB IV SCH ×2 (14:16→22:22)
[2019-02-04] MEDS: RINGERS SOLUTION,LACTATED 1,000 ML IV PRN (17:05)
[2019-02-04] MEDS: SIMETHICONE 80 MG TAB.CHEW PO PRN (17:05)
[2019-02-05] MEDS: PIPERACILLIN SODIUM/TAZOBACTAM 3.375 GM in NORMAL SALINE 100 ML IV SCH ×4 (01:30→18:25)
[2019-02-05] MEDS: RINGERS SOLUTION,LACTATED 1,000 ML IV PRN (01:31)
[2019-02-05] MEDS: OXYCODONE-ACETAMINOPHEN 5-325 MG TABLET PO PRN ×3 (04:39→21:59)
[2019-02-05] MEDS: SIMETHICONE 80 MG TAB.CHEW PO PRN (04:39)
--- NOTE | 2019-02-05 05:33 | PDOC PROGRESS REPORT ---
Subjective Progress Note for:: 02/04/19 Subjective:: RUHT WOOD is a 44 year old female with history of diabetes, hypertension, neuropathy and hyperlipidemia. She was initially admitted with abdominal pain last week. Abd/Pelvic US revealed L ovarian cyst but patient's pain seemed out of proportion to these findings. CT Abd/Pelvis revealed inflammatory changes and fluid in the abdomen and pelvis with some thickening of the peritoneal fascia, fluid around the liver in the right subphrenic space and fluid in the pelvis as well as increase in size of the soft tissue density in the left adnexa. Possible TOA/pyelonephritis not excluded. POD#1 laparotomy with L salpingoophrectomy. Patient was seen this afternoon on rounds, she states she is very comfortable, feels "much better than prior to surgery." The patient endorses abdominal pain with movement. LCTA. S1-S2. Surgical site is C/D/I, closed with sarah, covered with gauze. Gloria drain in place. PRN IV pain medication to the patient's regimen. Continue IV antibiotics. Reason For Visit: PID,UNCONT DM, LEUKOCYTOSIS Physical Exam Vital Signs: Temp Pulse Resp BP Pulse Ox 98.4 F 100 16 135/68 H 98 02/04/19 12:16 02/04/19 12:16 02/04/19 12:16 02/04/19 12:16 02/04/19 12:16 Intake & Output 02/03/19 02/04/19 02/05/19 06:59 06:59 06:59 Intake Total 2700 150 100 Output Total 430 1000 Balance 2270 -850 100 Weight 141.2 kg General appearance: PRESENT: morbidly obese Head exam: PRESENT: atraumatic Eye exam: PRESENT: conjunctiva pink, PERRLA Mouth exam: PRESENT: moist, tongue midline Neck exam: PRESENT: full ROM Respiratory exam: PRESENT: clear to auscultation mary, symmetrical, unlabored Cardiovascular exam: PRESENT: RRR Pulses: PRESENT: normal radial pulses, normal dorsalis pedis pul Vascular exam: PRESENT: normal capillary refill GI/Abdominal exam: PRESENT: diminished bowel sounds, normal bowel sounds, soft, tenderness Rectal exam: PRESENT: deferred Extremities exam: PRESENT: full ROM, pedal edema Musculoskeletal exam: PRESENT: ambulatory, full ROM Neurological exam: PRESENT: alert, awake, oriented to person, oriented to place, oriented to time, oriented to situation Psychiatric exam: PRESENT: appropriate affect Skin exam: PRESENT: dry, intact, other - midline abdominal incision c/d/i Results Laboratory Results: 02/04/19 06:13 02/04/19 06:13 02/04/19 02/04/19 06:13 06:13 WBC 20.6 H RBC 3.26 L Hgb 8.9 L Hct 26.3 L MCV 81 MCH 27.3 MCHC 33.9 RDW 13.7 Plt Count 351 Sodium 135.2 L Potassium 4.2 Chloride 104 Carbon Dioxide 22 Anion Gap 9 BUN 46 H Creatinine 2.17 H Est GFR ( Amer) 30 L Est GFR (Non-Af Amer) 25 L Glucose 70 L Calcium 8.8 Total Bilirubin 0.3 AST 16 ALT 23 Alkaline Phosphatase 108 Total Protein 5.6 L Albumin 2.4 L Impressions: Transvaginal US 01/27/19 06:07 IMPRESSION: Left hydrosalpinx or pyosalpinx. Correlate with pelvic exam. Pelvis Ultrasound 02/01/19 09:38 IMPRESSION: LIMITED STUDY. CYSTIC AREA IN THE LEFT OVARY AND QUESTIONABLE FLUID IN THE LEFT FALLOPIAN TUBE. LIMITED VISUALIZATION DUE TO TRANSABDOMINAL TECHNIQUE AND THE PATIENT'S BODY HABITUS. IF FURTHER EVALUATION IS INDICATED, AN MRI OF THE PELVIS MAY BE NECESSARY FOR MORE COMPLETE VISUALIZATION. Abdomen Ultrasound 02/01/19 09:39 IMPRESSION: LIMITED STUDY. HEPATOMEGALY WITH FATTY INFILTRATION OF THE LIVER. SMALL AMOUNT OF FREE FLUID IN THE SUBHEPATIC SPACE. Abdomen/Pelvis CT 02/01/19 16:38 IMPRESSION: When compared to the previous examination there has been interval worsening of inflammatory change and fluid in the abdomen and pelvis with some thickening of the peritoneal fascia, fluid around the liver and in the right subphrenic space and increasing fluid in the pelvis as well as increase in size of the soft tissue density in the left adnexa. Recommend further evaluation with intravenous contrast. Based on this examination possibility of TOA and/or pyelonephritis is not excluded. Clinical correlation would also be beneficial Development of small amount of inflammatory infiltrate in the right lung base with right pleural effusion Chest X-Ray 02/02/19 00:00 IMPRESSION: Mild patchy right basilar airspace disease suspicious for pneumonia. Status: Imported from PACS Assessment and Plan - Diagnosis (1) Abdominal pain Qualifiers: Abdominal location: upper abdomen, unspecified Qualified Code(s): R10.10 - Upper abdominal pain, unspecified Is this a current diagnosis for this admission?: Yes Plan: Patient reports adequate pain control US consistent is the left ovarian cyst and left hydrosalpinx. Ovarian cyst and hydrosalpinx should not cause this much pain. Multiple CT Abd/Pelvis shows worsening of inflammatory change and fluid in the abdomen and pelvis, thickening of the peritoneal fascia, increasing fluid in the pelvis, increase in size of soft tissue in the L adnexa CT indicative of possible TOA/pyelonephritis Empiric antibiotic coverage POD#1 ex-lap today (2) Hydrosalpinx Is this a current diagnosis for this admission?: Yes Plan: As seen on ultrasound Likely not the cause of her significant abdominal pain Empiric triple antibiotic therapy -Rocephin, metronidazole, doxycycline (3) Left ovarian cyst Is this a current diagnosis for this admission?: Yes Plan: Measuring approximately 2 x 2.5 cm. Details of treatment plan as noted in above (4) Hyperlipidemia Qualifiers: Hyperlipidemia type: unspecified Qualified Code(s): E78.5 - Hyperlipidemia, unspecified Is this a current diagnosis for this admission?: Yes Plan: Continue simvastatin 20 mg daily (5) Diabetes Qualifiers: Diabetes mellitus type: type 2 Diabetes mellitus half-way insulin use: with half-way use Diabetes mellitus complication status: without complication Qualified Code(s): E11.9 - Type 2 diabetes mellitus without complications; Z79.4 - terminal manager (current) use of insulin Is this a current diagnosis for this admission?: Yes Plan: [facility] type 2 diabetes Good glucose control with Lantus and sliding scale Previous use of Invokana, 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 (6) Hypertension Qualifiers: Hypertension type: essential hypertension Qualified Code(s): I10 - Essential (primary) hypertension Is this a current diagnosis for this admission?: Yes Plan: Adequate BP control today, SBP 120-130 Lisinopril 30 mg daily Furosemide 20 mg daily (7) Morbid obesity with BMI of 50.0-59.9, adult Is this a current diagnosis for this admission?: Yes Plan: The patient's morbid obesity is a significant co-morbidity for her DM, HTN and HLD All risk factors for heart disease Consistent carbohydrate cardiac diet (8) Fatty liver disease, nonalcoholic Is this a current diagnosis for this admission?: Yes Plan: Fatty liver noted on ultrasound No hepatomegaly Weight loss should be encouraged - Inpatient Certification Based on my medical assessment, after consideration of the patient's comorbidities, presenting symptoms, or acuity I expect that the services needed warrant INPATIENT care.: Yes I certify that my determination is in accordance with my understanding of Medicare's requirements for reasonable and necessary INPATIENT services [42 CFR 412.3e].: Yes Medical Necessity: Need For IV Fluids, Risk of Complication if Not Cared For in Hospital
[2019-02-05] MEDS ORDERED: KETOROLAC TROMETHAMINE INJ/PF 30 MG/1 ML SDV ONE (06:18)
[2019-02-05] MEDS: KETOROLAC TROMETHAMINE INJ/PF 30 MG/1 ML SDV IV SCH ×3 (06:25→21:43)
[2019-02-05] MEDS: CEFAZOLIN 1 GM/D5W RTU 1 GM/50 ML RTUPB IV SCH ×3 (06:25→21:43)
[2019-02-05] MEDS: IBUPROFEN 800 MG TABLET PO SCH ×3 (06:27→18:09)
[2019-02-05 07:00] LABS: HEMATOCRIT 23.6 % (36.0-47.0); HEMOGLOBIN 8.1 g/dL (12.0-15.5); MEAN CORPUSCULAR HEMOGLOBIN 27.9 pg (27.0-33.4); MEAN CORPUSCULAR HGB CONC 34.3 g/dL (32.0-36.0); MEAN CORPUSCULAR VOLUME 82 fl (80-97); PLATELET COUNT 320 10^3/uL (150-450); RED BLOOD COUNT 2.89 10^6/uL (3.72-5.28)
[2019-02-05 07:20] LABS: ABSOLUTE LYMPHOCYTES# (MANUAL) 1.8 10^3/uL (0.5-4.7); ABSOLUTE MONOCYTES # (MANUAL) 1.8 10^3/uL (0.1-1.4); ABSOLUTE NEUTROPHILS# (MANUAL) 18.5 10^3/uL (1.7-8.2); BASOPHILS % (MANUAL) 0 % (0-2); EOSINOPHILS % (MANUAL) 0 % (0-6); LYMPHOCYTES % (MANUAL) 8 % (13-45); MONOCYTES % (MANUAL) 8 % (3-13); SEGMENTED NEUTROPHILS % (MAN) 84 % (42-78); TOTAL CELLS COUNTED 100
[2019-02-05 07:22] LABS: ANISOCYTOSIS SLIGHT; PLATELET COMMENT ADEQUATE; PLATELET LARGE PRESENT
[2019-02-05] MEDS: INSULIN LISPRO 100 UNIT/ML 3 ML VIAL SUBCUT SCH ×3 (09:42→18:08)
[2019-02-05] MEDS: METRONIDAZOLE 500 MG/NS RTU 500 MG/100 ML RTUPB IV SCH ×2 (09:46→19:55)
--- NOTE | 2019-02-05 11:06 | PDOC PROGRESS REPORT ---
Subjective Progress Note for:: 02/05/19 Reason For Visit: PID,UNCONT DM, LEUKOCYTOSIS, status post laparotomy POD#1 Physical Exam - Physical Exam Vital Signs: Temp Pulse Resp BP Pulse Ox 97.7 F 100 16 142/64 H 100 02/05/19 08:08 02/05/19 08:08 02/05/19 08:08 02/05/19 08:08 02/05/19 08:08 Intake & Output 02/04/19 02/05/19 02/06/19 06:59 06:59 06:59 Intake Total 150 1850 Output Total 1000 550 Balance -850 1300 Weight 140 kg General appearance: PRESENT: no acute distress, cooperative, morbidly obese Head exam: PRESENT: atraumatic, normocephalic Eye exam: PRESENT: EOMI GI/Abdominal exam: PRESENT: normal bowel sounds, soft - appropriately tender status post vertical laparotomy abdominal incision Rectal exam: PRESENT: deferred Neurological exam: PRESENT: alert, awake, oriented to person, oriented to place Psychiatric exam: PRESENT: appropriate affect, normal mood Result Laboratory Results: 02/05/19 06:38 02/04/19 06:13 02/05/19 06:38 WBC 22.0 H RBC 2.89 L Hgb 8.1 L Hct 23.6 L MCV 82 MCH 27.9 MCHC 34.3 RDW 14.0 Plt Count 320 Seg Neutrophils % Not Reportable Lymphocytes % Not Reportable Monocytes % Not Reportable Eosinophils % Not Reportable Basophils % Not Reportable Absolute Neutrophils Not Reportable Absolute Lymphocytes Not Reportable Absolute Monocytes Not Reportable Absolute Eosinophils Not Reportable Absolute Basophils Not Reportable Impressions: Transvaginal US 01/27/19 06:07 IMPRESSION: Left hydrosalpinx or pyosalpinx. Correlate with pelvic exam. Pelvis Ultrasound 02/01/19 09:38 IMPRESSION: LIMITED STUDY. CYSTIC AREA IN THE LEFT OVARY AND QUESTIONABLE FLUID IN THE LEFT FALLOPIAN TUBE. LIMITED VISUALIZATION DUE TO TRANSABDOMINAL TECHNIQUE AND THE PATIENT'S BODY HABITUS. IF FURTHER EVALUATION IS INDICATED, AN MRI OF THE PELVIS MAY BE NECESSARY FOR MORE COMPLETE VISUALIZATION. Abdomen Ultrasound 02/01/19 09:39 IMPRESSION: LIMITED STUDY. HEPATOMEGALY WITH FATTY INFILTRATION OF THE LIVER. SMALL AMOUNT OF FREE FLUID IN THE SUBHEPATIC SPACE. Abdomen/Pelvis CT 02/01/19 16:38 IMPRESSION: When compared to the previous examination there has been interval worsening of inflammatory change and fluid in the abdomen and pelvis with some thickening of the peritoneal fascia, fluid around the liver and in the right subphrenic space and increasing fluid in the pelvis as well as increase in size of the soft tissue density in the left adnexa. Recommend further evaluation with intravenous contrast. Based on this examination possibility of TOA and/or pyelonephritis is not excluded. Clinical correlation would also be beneficial Development of small amount of inflammatory infiltrate in the right lung base with right pleural effusion Chest X-Ray 02/02/19 00:00 IMPRESSION: Mild patchy right basilar airspace disease suspicious for pneumonia. Assessment & Plan - Diagnosis (1) PID (acute pelvic inflammatory disease) Is this a current diagnosis for this admission?: Yes (2) Status post exploratory laparotomy Is this a current diagnosis for this admission?: No Plan: Continue oral meds and pain meds as patient is currently POD#1 Continue current postop care
[2019-02-05] MEDS: CETIRIZINE 10 MG TABLET PO SCH (11:14)
[2019-02-05] MEDS: ASCORBIC ACID 500 MG TABLET PO SCH ×2 (11:14→18:29)
[2019-02-05] MEDS: ASPIRIN 81 MG TABLET, ENT COATED PO SCH (11:14)
[2019-02-05] MEDS: FAMOTIDINE 20 MG TABLET PO SCH (11:14)
[2019-02-05] MEDS: FUROSEMIDE 20 MG TABLET PO SCH (11:14)
[2019-02-05] MEDS: DOCUSATE SODIUM 100 MG CAPSULE PO SCH ×2 (11:14→18:29)
[2019-02-05] MEDS: LISINOPRIL 10 MG TABLET PO SCH (11:15)
[2019-02-05] MEDS: PRENATAL VITAMIN W DHA CAPSULE PO SCH (11:24)
[2019-02-05] MEDS ORDERED: FLUCONAZOLE 100 MG TABLET PO ONE (15:00)
[2019-02-05] MEDS ORDERED: ONDANSETRON 4 MG TAB.RAPDIS PO PRN (19:41)
[2019-02-05] MEDS ORDERED: NORMAL SALINE 1000 ML 1,000 ML IV ONE (20:30)
[2019-02-05] MEDS ORDERED: METOPROLOL TARTRATE PF/INJ 5 MG/5 ML SDV IV PRN (20:58)
[2019-02-05] MEDS ORDERED: HYDRALAZINE HCL INJ/PF 20 MG/1 ML SDV IV PRN (20:58)
--- NOTE | 2019-02-05 21:25 | PDOC PROGRESS REPORT ---
Subjective Progress Note for:: 02/05/19 Subjective:: RUTH WOOD is a 44 year old female with history of diabetes, hypertension, neuropathy and hyperlipidemia. She was initially admitted with abdominal pain last week. Abd/Pelvic US revealed L ovarian cyst but patient's pain seemed out of proportion to these findings. CT Abd/Pelvis revealed inflammatory changes and fluid in the abdomen and pelvis with some thickening of the peritoneal fascia, fluid around the liver in the right subphrenic space and fluid in the pelvis as well as increase in size of the soft tissue density in the left adnexa. Possible TOA/pyelonephritis not excluded. Post-op laparotomy with L salpingoophrectomy. 2cm abscess removed from a fold of the small bowel. The L adenexa was purulent within the ovary, ovary and fallopean tube removed. Patient was seen this afternoon on rounds, she states she is not feeling well. She is vomiting intermittently throughout the day. States she does not have much of an appetite and feels like she needs to have a bowel movement. Complains of generalized pain, but mainly in her lower back. The patient endorses abdominal pain with movement. Surgical site is C/D/I, closed with sarah, covered with gauze. [place] drain in place. Patient's leukocytosis is worse today 20-->22. Her creatinine remains elevated above her baseline (<1.0). Patient was started on IVF. Antibiotics remain Flagyl (anaerobes) and Ancef (gram positive) and Zosyn (gram negative). Will continue to monitor closely, discharge should be placed on hold until patient stabilizes. Reason For Visit: PID,UNCONT DM, LEUKOCYTOSIS Physical Exam Vital Signs: Temp Pulse Resp BP Pulse Ox 98.2 F 90 16 138/75 H 99 02/05/19 16:10 02/05/19 16:10 02/05/19 16:10 02/05/19 16:10 02/05/19 16:10 Intake & Output 02/04/19 02/05/19 02/06/19 06:59 06:59 06:59 Intake Total 150 1850 250 Output Total 1000 550 Balance -850 1300 250 Weight 140 kg General appearance: PRESENT: obese Head exam: PRESENT: atraumatic Eye exam: PRESENT: conjunctiva pink, PERRLA Teeth exam: PRESENT: poor dentation Neck exam: PRESENT: full ROM Respiratory exam: PRESENT: clear to auscultation mary, symmetrical, unlabored Cardiovascular exam: PRESENT: +S1, +S2 Pulses: PRESENT: normal radial pulses, normal dorsalis pedis pul Vascular exam: PRESENT: normal capillary refill GI/Abdominal exam: PRESENT: hypoactive bowel sounds, soft, tenderness - surgical site. ABSENT: distended, firm, guarding Rectal exam: PRESENT: deferred Extremities exam: PRESENT: full ROM Musculoskeletal exam: PRESENT: ambulatory, full ROM Neurological exam: PRESENT: alert, awake, oriented to person, oriented to place, oriented to time, oriented to situation Psychiatric exam: PRESENT: appropriate affect Skin exam: PRESENT: dry, intact, other - MIDLINE ABDOMINAL WOUND Results Laboratory Results: 02/05/19 06:38 02/04/19 06:13 02/05/19 06:38 WBC 22.0 H RBC 2.89 L Hgb 8.1 L Hct 23.6 L MCV 82 MCH 27.9 MCHC 34.3 RDW 14.0 Plt Count 320 Seg Neutrophils % Not Reportable Lymphocytes % Not Reportable Monocytes % Not Reportable Eosinophils % Not Reportable Basophils % Not Reportable Absolute Neutrophils Not Reportable Absolute Lymphocytes Not Reportable Absolute Monocytes Not Reportable Absolute Eosinophils Not Reportable Absolute Basophils Not Reportable Impressions: Transvaginal US 01/27/19 06:07 IMPRESSION: Left hydrosalpinx or pyosalpinx. Correlate with pelvic exam. Pelvis Ultrasound 02/01/19 09:38 IMPRESSION: LIMITED STUDY. CYSTIC AREA IN THE LEFT OVARY AND QUESTIONABLE FLUID IN THE LEFT FALLOPIAN TUBE. LIMITED VISUALIZATION DUE TO TRANSABDOMINAL TECHNIQUE AND THE PATIENT'S BODY HABITUS. IF FURTHER EVALUATION IS INDICATED, AN MRI OF THE PELVIS MAY BE NECESSARY FOR MORE COMPLETE VISUALIZATION. Abdomen Ultrasound 02/01/19 09:39 IMPRESSION: LIMITED STUDY. HEPATOMEGALY WITH FATTY INFILTRATION OF THE LIVER. SMALL AMOUNT OF FREE FLUID IN THE SUBHEPATIC SPACE. Abdomen/Pelvis CT 02/01/19 16:38 IMPRESSION: When compared to the previous examination there has been interval worsening of inflammatory change and fluid in the abdomen and pelvis with some thickening of the peritoneal fascia, fluid around the liver and in the right subphrenic space and increasing fluid in the pelvis as well as increase in size of the soft tissue density in the left adnexa. Recommend further evaluation with intravenous contrast. Based on this examination possibility of TOA and/or pyelonephritis is not excluded. Clinical correlation would also be beneficial Development of small amount of inflammatory infiltrate in the right lung base with right pleural effusion Chest X-Ray 02/02/19 00:00 IMPRESSION: Mild patchy right basilar airspace disease suspicious for pneumonia. Status: Imported from PACS Assessment and Plan - Diagnosis (1) Abdominal pain Qualifiers: Abdominal location: upper abdomen, unspecified Qualified Code(s): R10.10 - Upper abdominal pain, unspecified Is this a current diagnosis for this admission?: Yes Plan: Patient reports adequate pain control US consistent is the left ovarian cyst and left hydrosalpinx. Ovarian cyst and hydrosalpinx should not cause this much pain. Multiple CT Abd/Pelvis shows worsening of inflammatory change and fluid in the abdomen and pelvis, thickening of the peritoneal fascia, increasing fluid in the pelvis, increase in size of soft tissue in the L adnexa CT indicative of possible TOA/pyelonephritis Ex-lap w/small bowel abscess and L salpingoophrectomy done 02/03/2019 Patient remains on Zosyn, Flagyl and Ancef. WBC increased from 20-->22 post-op inflammation and/or infection. Should be monitored closely Renal function slightly improved 3-->2.1 but not at baseline. Patient is able to make urine. Initiate continuous IVF (2) Hydrosalpinx Is this a current diagnosis for this admission?: Yes Plan: As seen on ultrasound Likely not the cause of her significant abdominal pain (3) Hyperlipidemia Qualifiers: Hyperlipidemia type: unspecified Qualified Code(s): E78.5 - Hyperlipidemia, unspecified Is this a current diagnosis for this admission?: Yes Plan: Continue simvastatin 20 mg daily (4) Diabetes Qualifiers: Diabetes mellitus type: type 2 Diabetes mellitus skilled nursing insulin use: with skilled nursing use Diabetes mellitus complication status: without complication Qualified Code(s): E11.9 - Type 2 diabetes mellitus without complications; Z79.4 - jail (current) use of insulin Is this a current diagnosis for this admission?: Yes Plan: PMH type 2 diabetes Good glucose control with Lantus and sliding scale Previous use of Invokana, 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 Check HgbA1c in AM (5) Hypertension Qualifiers: Hypertension type: essential hypertension Qualified Code(s): I10 - Essential (primary) hypertension Is this a current diagnosis for this admission?: Yes Plan: Adequate BP control today, SBP 120-130 lisinopril discontinued in light of poor renal function will switch to amlodipine Furosemide 20 mg daily IV hydralazine and IV lopressor for SBP > 170 (6) Morbid obesity with BMI of 50.0-59.9, adult Is this a current diagnosis for this admission?: Yes Plan: The patient's morbid obesity is a significant co-morbidity for her DM, HTN and HLD All risk factors for heart disease Consistent carbohydrate cardiac diet (7) Fatty liver disease, nonalcoholic Is this a current diagnosis for this admission?: Yes Plan: Fatty liver noted on ultrasound No hepatomegaly Weight loss should be encouraged (8) TOA (tubo-ovarian abscess) Is this a current diagnosis for this admission?: Yes Plan: Seen on CT Surgically removed by Dr. Goodman on 02/03/2019 Currently receiving empiric abx with Flagyl, Zosyn and Ancef Wound cultures pending (+) leukocytosis afebrile (9) JUANA (acute kidney injury) Is this a current diagnosis for this admission?: Yes Plan: Creatinine 2.1 Improving Likely prerenal due to infection stemming from TOA & intra-abdominal abscess - Time Time Spent with patient: 15-24 minutes Medications reviewed and adjusted accordingly: Yes Anticipated discharge: Home Within: Other - when medically stable
[2019-02-05] MEDS: PANTOPRAZOLE SODIUM 40 MG VIAL IV SCH (21:42)
[2019-02-05] MEDS: INSULIN GLARGINE,HUM.REC.ANLOG 1,000 UNIT/10 ML VIAL SUBCUT SCH (21:43)
[2019-02-05] MEDS: SIMVASTATIN 10 MG TABLET PO SCH (21:59)
[2019-02-06] MEDS: PIPERACILLIN SODIUM/TAZOBACTAM 3.375 GM in NORMAL SALINE 100 ML IV SCH ×4 (00:16→18:17)
[2019-02-06] MEDS: IBUPROFEN 800 MG TABLET PO SCH ×4 (00:16→18:28)
[2019-02-06] MEDS: CEFAZOLIN 1 GM/D5W RTU 1 GM/50 ML RTUPB IV SCH ×3 (05:05→22:39)
[2019-02-06] MEDS: KETOROLAC TROMETHAMINE INJ/PF 30 MG/1 ML SDV IV SCH ×3 (05:38→22:36)
[2019-02-06 05:57] LABS: HEMATOCRIT 23.3 % (36.0-47.0); MEAN CORPUSCULAR HEMOGLOBIN 28.1 pg (27.0-33.4); MEAN CORPUSCULAR HGB CONC 34.4 g/dL (32.0-36.0); MEAN CORPUSCULAR VOLUME 82 fl (80-97); PLATELET COUNT 355 10^3/uL (150-450); RED BLOOD COUNT 2.86 10^6/uL (3.72-5.28); RED CELL DISTRIBUTION WIDTH 14.1 % (11.5-14.0); WHITE BLOOD COUNT 22.6 10^3/uL (4.0-10.5)
[2019-02-06 06:10] LABS: ALANINE AMINOTRANSFERASE 23 U/L (9-52); ALBUMIN 2.4 g/dL (3.5-5.0); ALKALINE PHOSPHATASE 132 U/L (38-126); ANION GAP 15 (5-19); ASPARTATE AMINO TRANSFERASE 17 U/L (14-36); BILIRUBIN,DIRECT 0.5 mg/dL (0.0-0.4); BILIRUBIN,TOTAL 0.5 mg/dL (0.2-1.3); BLOOD UREA NITROGEN 55 mg/dL (7-20); CALCIUM 8.7 mg/dL (8.4-10.2); CARBON DIOXIDE 20 mmol/L (22-30); CHLORIDE 104 mmol/L (98-107); GLUCOSE 102 mg/dL (75-110); PHOSPHORUS 6.8 mg/dL (2.5-4.5); POTASSIUM 4.3 mmol/L (3.6-5.0); SODIUM 138.6 mmol/L (137-145); TOTAL PROTEIN 5.9 g/dL (6.3-8.2)
[2019-02-06 06:32] LABS: ABSOLUTE LYMPHOCYTES# (MANUAL) 1.6 10^3/uL (0.5-4.7); ABSOLUTE MONOCYTES # (MANUAL) 0.7 10^3/uL (0.1-1.4); ABSOLUTE NEUTROPHILS# (MANUAL) 19.9 10^3/uL (1.7-8.2); BASOPHILS % (MANUAL) 0 % (0-2); EOSINOPHILS % (MANUAL) 2 % (0-6); LYMPHOCYTES % (MANUAL) 7 % (13-45); MONOCYTES % (MANUAL) 3 % (3-13); SEGMENTED NEUTROPHILS % (MAN) 88 % (42-78); TOTAL CELLS COUNTED 100
[2019-02-06 06:33] LABS: PLATELET COMMENT ADEQUATE
[2019-02-06 06:35] LABS: ANISOCYTOSIS SLIGHT; HYPOCHROMASIA 1+
[2019-02-06] MEDS: NORMAL SALINE 1000 ML 1,000 ML IV PRN ×2 (08:45→22:41)
[2019-02-06] MEDS ORDERED: METRONIDAZOLE 500 MG/NS RTU 500 MG/100 ML RTUPB IV ONE (09:23)
[2019-02-06] MEDS: INSULIN LISPRO 100 UNIT/ML 3 ML VIAL SUBCUT SCH ×7 (09:37→23:50)
--- NOTE | 2019-02-06 09:37 | PDOC PROGRESS REPORT ---
Subjective Progress Note for:: 02/06/19 Subjective:: RUTH WOOD is a 44 year old female with history of diabetes, hypertension, neuropathy and hyperlipidemia. She was initially admitted with abdominal pain on 01/27/2019. Abd/Pelvic US revealed L ovarian cyst but patient's pain seemed out of proportion to these findings. CT Abd/Pelvis revealed possible TOA, inflammatory changes and fluid in the abdomen and pelvis with some thickening of the peritoneal fascia, fluid around the liver in the right subphrenic space and fluid in the pelvis as well as increase in size of the soft tissue density in the left adnexa. Laparotomy with L salpingoophrectomy by Dr. Goodman & Dr. Pierre on 02/03/2019. The L adenexa was purulent within the ovary, ovary and fallopean tube removed. 2cm abscess removed from a fold of the small bowel. Patient endorses anorexia today. She was vomiting intermittently yesterday. Complains of generalized pain, particularly in R chest, worse with inhalation and movement. Surgical site is C/D/I, closed with sarah, covered with gauze. [place] drain in place. Patient's leukocytosis is worse today 22-->22.6. Creatinine remains elevated above her baseline (<1.0), worse today 2.17-->3.07. Patient was started on IVF yesterday but refused all fluids and antibiotics overnight. I was able to convince the patient to resume therapy today. Antibiotics remain Flagyl (anaerobes) and Ancef (gram positive) and Zosyn (gram negative). Will continue to monitor closely, discharge should be placed on hold until patient stabilizes. Plan to consult nephrology due to patient's poor renal function (no hx of renal disease). Reason For Visit: PID,UNCONT DM, LEUKOCYTOSIS Physical Exam Vital Signs: Temp Pulse Resp BP Pulse Ox 98.0 F 85 18 148/68 H 99 02/06/19 07:22 02/06/19 07:22 02/06/19 07:22 02/06/19 07:22 02/06/19 07:22 Intake & Output 02/05/19 02/06/19 02/07/19 06:59 06:59 06:59 Intake Total 1850 250 Output Total 550 1025 Balance 1300 -775 Weight 140 kg 145 kg General appearance: PRESENT: morbidly obese Head exam: PRESENT: atraumatic Eye exam: PRESENT: conjunctiva pink, PERRLA Mouth exam: PRESENT: moist, tongue midline Neck exam: PRESENT: full ROM Respiratory exam: PRESENT: clear to auscultation mary, decreased breath sounds - b/l lower lobes, due to patient's body habitus Cardiovascular exam: PRESENT: +S1, +S2 Pulses: PRESENT: normal radial pulses, +1 pedal pulses bilateral - R foot only, L AKA Vascular exam: PRESENT: normal capillary refill GI/Abdominal exam: PRESENT: soft. ABSENT: distended, tenderness Rectal exam: PRESENT: deferred Extremities exam: PRESENT: full ROM, pedal edema - TRACE EDEMA Musculoskeletal exam: PRESENT: ambulatory, full ROM Neurological exam: PRESENT: alert, awake, oriented to person, oriented to place, oriented to time, oriented to situation Psychiatric exam: PRESENT: appropriate affect Skin exam: PRESENT: dry, intact, normal color Results Laboratory Results: 02/06/19 05:30 02/06/19 05:30 02/06/19 02/06/19 02/06/19 05:30 05:30 05:30 WBC 22.6 H RBC 2.86 L Hgb 8.0 L Hct 23.3 L MCV 82 MCH 28.1 MCHC 34.4 RDW 14.1 H Plt Count 355 Seg Neutrophils % Not Reportable Lymphocytes % Not Reportable Monocytes % Not Reportable Eosinophils % Not Reportable Basophils % Not Reportable Absolute Neutrophils Not Reportable Absolute Lymphocytes Not Reportable Absolute Monocytes Not Reportable Absolute Eosinophils Not Reportable Absolute Basophils Not Reportable Sodium 138.6 Potassium 4.3 Chloride 104 Carbon Dioxide 20 L Anion Gap 15 BUN 55 H Creatinine 3.04 H Est GFR ( Amer) 20 L Est GFR (Non-Af Amer) 17 L Glucose 102 Lactic Acid < 0.5 L Calcium 8.7 Phosphorus 6.8 H Magnesium 1.9 Total Bilirubin 0.5 AST 17 ALT 23 Alkaline Phosphatase 132 H Total Protein 5.9 L Albumin 2.4 L 01/31/19 21:20 Blood Blood Culture - Final NO GROWTH IN 5 DAYS 01/31/19 20:50 Blood Blood Culture - Final NO GROWTH IN 5 DAYS Impressions: Transvaginal US 01/27/19 06:07 IMPRESSION: Left hydrosalpinx or pyosalpinx. Correlate with pelvic exam. Pelvis Ultrasound 02/01/19 09:38 IMPRESSION: LIMITED STUDY. CYSTIC AREA IN THE LEFT OVARY AND QUESTIONABLE FLUID IN THE LEFT FALLOPIAN TUBE. LIMITED VISUALIZATION DUE TO TRANSABDOMINAL TECHNIQUE AND THE PATIENT'S BODY HABITUS. IF FURTHER EVALUATION IS INDICATED, AN MRI OF THE PELVIS MAY BE NECESSARY FOR MORE COMPLETE VISUALIZATION. Abdomen Ultrasound 02/01/19 09:39 IMPRESSION: LIMITED STUDY. HEPATOMEGALY WITH FATTY INFILTRATION OF THE LIVER. SMALL AMOUNT OF FREE FLUID IN THE SUBHEPATIC SPACE. Abdomen/Pelvis CT 02/01/19 16:38 IMPRESSION: When compared to the previous examination there has been interval worsening of inflammatory change and fluid in the abdomen and pelvis with some thickening of the peritoneal fascia, fluid around the liver and in the right subphrenic space and increasing fluid in the pelvis as well as increase in size of the soft tissue density in the left adnexa. Recommend further evaluation with intravenous contrast. Based on this examination possibility of TOA and/or pyelonephritis is not excluded. Clinical correlation would also be beneficial Development of small amount of inflammatory infiltrate in the right lung base with right pleural effusion Chest X-Ray 02/02/19 00:00 IMPRESSION: Mild patchy right basilar airspace disease suspicious for pneumonia. Status: Imported from PACS Assessment and Plan - Diagnosis (1) Chest pain Qualifiers: Chest pain type: chest pain on breathing Qualified Code(s): R07.1 - Chest pain on breathing; R07.81 - Pleurodynia Is this a current diagnosis for this admission?: Yes Plan: Patient complains of R sided chest pain, worse with inhalation, non-radiating, not reproducible with palpation Clinical presentation is not consistent with cardiac chest pain Obesity, recent surgery and immobility are collectively risk factors for PE Well's criteria is only 1.5 Patient's creatinine limits us to VQ scan, unable to preform CTA No plan for d-dimer, will likely be elevated due to patient's renal function Will obtain EKG and treat patient's pain If pain persists, plan for VQ scan (2) Abdominal pain Qualifiers: Abdominal location: upper abdomen, unspecified Qualified Code(s): R10.10 - Upper abdominal pain, unspecified Is this a current diagnosis for this admission?: Yes Plan: Patient reports adequate pain control US consistent is the left ovarian cyst and left hydrosalpinx. Ovarian cyst and hydrosalpinx should not cause this much pain. Multiple CT Abd/Pelvis shows worsening of inflammatory change and fluid in the abdomen and pelvis, thickening of the peritoneal fascia, increasing fluid in the pelvis, increase in size of soft tissue in the L adnexa CT indicative of possible TOA Ex-lap w/small bowel abscess and L salpingoophrectomy done 02/03/2019 Patient remains on Zosyn, Flagyl and Ancef. WBC increased from 11-->22 post-op inflammation and/or infection. Should be monitored closely Renal function slightly improved 2.1-->3 but not at baseline. Patient is able to make urine. Continuous IVF (3) TOA (tubo-ovarian abscess) Is this a current diagnosis for this admission?: Yes Plan: Management per OBGYN Seen on CT Surgically removed by Dr. Goodman on 02/03/2019 Currently receiving empiric abx with Flagyl, Zosyn and Ancef Wound cultures pending (+) leukocytosis afebrile Plan to consult ID regarding antibiotic regimen and length of treatment (4) JUANA (acute kidney injury) Is this a current diagnosis for this admission?: Yes Plan: Worsening Creatinine 2.1-->3.0 Baseline < 1.0 No history of kidney disease Likely prerenal due to dehydration stemming from intra-abdominal infection, vomiting and poor PO intake Bolused yesterday, patient refused IVF overnight, resume maintenance IVF today Patient has been hospitalized at [facility] in the past and has suffered JUANA from antibiotics, requiring nephrology services but never required dialysis Plan to consult prosthetic dentist (5) Hypertension Qualifiers: Hypertension type: essential hypertension Qualified Code(s): I10 - Essential (primary) hypertension Is this a current diagnosis for this admission?: Yes Plan: Poor BP control today, SBP 140-150 Lisinopril discontinued yesterday in light of poor renal function Switched to amlodipine Will avoid beta blockers in this asthmatic patient Plan to start clonidine today IV hydralazine and IV lopressor for SBP > 170 (6) Hyperlipidemia Qualifiers: Hyperlipidemia type: unspecified Qualified Code(s): E78.5 - Hyperlipidemia, unspecified Is this a current diagnosis for this admission?: Yes Plan: Continue simvastatin 20 mg daily (7) Diabetes Qualifiers: Diabetes mellitus type: type 2 Diabetes mellitus custodial insulin use: with long term care phlebotomist use Diabetes mellitus complication status: without complication Qualified Code(s): E11.9 - Type 2 diabetes mellitus without complications; Z79.4 - half-way (current) use of insulin Is this a current diagnosis for this admission?: Yes Plan: PMH type 2 diabetes Good glucose control with Lantus and sliding scale Previous use of Invokana, 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 HgbA1c 7.5% (8) Fatty liver disease, nonalcoholic Is this a current diagnosis for this admission?: Yes Plan: Fatty liver noted on ultrasound No hepatomegaly Weight loss should be encouraged (9) Hydrosalpinx Is this a current diagnosis for this admission?: Yes Plan: As seen on ultrasound Likely not the cause of her significant abdominal pain TOA found on CT Laparotomy with L salpingoophrectomy on 02/03/2019 (10) Morbid obesity with BMI of 50.0-59.9, adult Is this a current diagnosis for this admission?: Yes Plan: The patient's morbid obesity is a significant co-morbidity for her DM, HTN and HLD All risk factors for heart disease Consistent carbohydrate cardiac diet - Time Time Spent with patient: 15-24 minutes Medications reviewed and adjusted accordingly: Yes Anticipated discharge: Home Within: Other - when medically stable - Inpatient Certification Based on my medical assessment, after consideration of the patient's comorbidities, presenting symptoms, or acuity I expect that the services needed warrant INPATIENT care.: Yes I certify that my determination is in accordance with my understanding of Medicare's requirements for reasonable and necessary INPATIENT services [42 CFR 412.3e].: Yes Medical Necessity: Need For IV Fluids, Need for IV Antibiotics, Risk of Complication if Not Cared For in Hospital
[2019-02-06] MEDS: ASPIRIN 81 MG TABLET, ENT COATED PO SCH (09:40)
[2019-02-06] MEDS: AMLODIPINE BESYLATE 10 MG TABLET PO SCH (09:40)
[2019-02-06] MEDS: SENNOSIDES/DOCUSATE 8.6-50 MG 1 EACH TABLET PO SCH ×2 (09:40→17:17)
[2019-02-06] MEDS: PANTOPRAZOLE SODIUM 40 MG VIAL IV SCH ×2 (09:40→22:33)
[2019-02-06] MEDS: ASCORBIC ACID 500 MG TABLET PO SCH ×2 (09:40→17:18)
[2019-02-06] MEDS: CETIRIZINE 10 MG TABLET PO SCH (09:40)
[2019-02-06] MEDS: DOCUSATE SODIUM 100 MG CAPSULE PO SCH ×2 (09:41→17:18)
[2019-02-06] MEDS: PRENATAL VITAMIN W DHA CAPSULE PO SCH (09:41)
[2019-02-06] MEDS: METRONIDAZOLE 500 MG/NS RTU 500 MG/100 ML RTUPB IV SCH (09:43)
--- NOTE | 2019-02-06 10:03 | PDOC PROGRESS REPORT ---
Subjective Progress Note for:: 02/06/19 Subjective:: pt states she is not feeling any better Reason For Visit: PID,UNCONT DM, LEUKOCYTOSIS Physical Exam - Physical Exam Vital Signs: Temp Pulse Resp BP Pulse Ox 98.0 F 85 18 148/68 H 99 02/06/19 07:22 02/06/19 07:22 02/06/19 07:22 02/06/19 07:22 02/06/19 07:22 Intake & Output 02/05/19 02/06/19 02/07/19 06:59 06:59 06:59 Intake Total 1850 250 Output Total 550 1025 Balance 1300 -775 Weight 140 kg 145 kg General appearance: PRESENT: no acute distress GI/Abdominal exam: PRESENT: soft - incision show no signs of infection Result Laboratory Results: 02/06/19 05:30 02/06/19 05:30 02/06/19 02/06/19 02/06/19 05:30 05:30 05:30 WBC 22.6 H RBC 2.86 L Hgb 8.0 L Hct 23.3 L MCV 82 MCH 28.1 MCHC 34.4 RDW 14.1 H Plt Count 355 Seg Neutrophils % Not Reportable Lymphocytes % Not Reportable Monocytes % Not Reportable Eosinophils % Not Reportable Basophils % Not Reportable Absolute Neutrophils Not Reportable Absolute Lymphocytes Not Reportable Absolute Monocytes Not Reportable Absolute Eosinophils Not Reportable Absolute Basophils Not Reportable Sodium 138.6 Potassium 4.3 Chloride 104 Carbon Dioxide 20 L Anion Gap 15 BUN 55 H Creatinine 3.04 H Est GFR ( Amer) 20 L Est GFR (Non-Af Amer) 17 L Glucose 102 Lactic Acid < 0.5 L Calcium 8.7 Phosphorus 6.8 H Magnesium 1.9 Total Bilirubin 0.5 AST 17 ALT 23 Alkaline Phosphatase 132 H Total Protein 5.9 L Albumin 2.4 L 01/31/19 21:20 Blood Blood Culture - Final NO GROWTH IN 5 DAYS 01/31/19 20:50 Blood Blood Culture - Final NO GROWTH IN 5 DAYS Impressions: Transvaginal US 01/27/19 06:07 IMPRESSION: Left hydrosalpinx or pyosalpinx. Correlate with pelvic exam. Pelvis Ultrasound 02/01/19 09:38 IMPRESSION: LIMITED STUDY. CYSTIC AREA IN THE LEFT OVARY AND QUESTIONABLE FLUID IN THE LEFT FALLOPIAN TUBE. LIMITED VISUALIZATION DUE TO TRANSABDOMINAL TECHNIQUE AND THE PATIENT'S BODY HABITUS. IF FURTHER EVALUATION IS INDICATED, AN MRI OF THE PELVIS MAY BE NECESSARY FOR MORE COMPLETE VISUALIZATION. Abdomen Ultrasound 02/01/19 09:39 IMPRESSION: LIMITED STUDY. HEPATOMEGALY WITH FATTY INFILTRATION OF THE LIVER. SMALL AMOUNT OF FREE FLUID IN THE SUBHEPATIC SPACE. Abdomen/Pelvis CT 02/01/19 16:38 IMPRESSION: When compared to the previous examination there has been interval worsening of inflammatory change and fluid in the abdomen and pelvis with some thickening of the peritoneal fascia, fluid around the liver and in the right subphrenic space and increasing fluid in the pelvis as well as increase in size of the soft tissue density in the left adnexa. Recommend further evaluation with intravenous contrast. Based on this examination possibility of TOA and/or pyelonephritis is not excluded. Clinical correlation would also be beneficial Development of small amount of inflammatory infiltrate in the right lung base with right pleural effusion Chest X-Ray 02/02/19 00:00 IMPRESSION: Mild patchy right basilar airspace disease suspicious for pneumonia. Assessment & Plan - Diagnosis (1) Abdominal pain Qualifiers: Abdominal location: upper abdomen, unspecified Qualified Code(s): R10.10 - Upper abdominal pain, unspecified Is this a current diagnosis for this admission?: Yes (2) Hydrosalpinx Is this a current diagnosis for this admission?: Yes (3) Chronic hypertension Is this a current diagnosis for this admission?: Yes (4) Fatty liver disease, nonalcoholic Is this a current diagnosis for this admission?: Yes (5) Left ovarian cyst Is this a current diagnosis for this admission?: Yes (6) Leukocytosis Qualifiers: Leukocytosis type: unspecified Qualified Code(s): D72.829 - Elevated white blood cell count, unspecified Is this a current diagnosis for this admission?: Yes (7) PID (acute pelvic inflammatory disease) Is this a current diagnosis for this admission?: Yes - Plan Summary Plan Summary: continue with present plan of management and follow plan of hospitalist
[2019-02-06] MEDS: OXYCODONE-ACETAMINOPHEN 5-325 MG TABLET PO PRN ×3 (11:26→22:34)
[2019-02-06] MEDS: CLONIDINE HCL 0.1 MG TABLET PO SCH (12:38)
--- NOTE | 2019-02-06 15:33 | RADIOLOGY REPORT (SQ) ---
EXAM DESCRIPTION: NM LUNG VENT/PERF SCAN COMPLETED DATE/TIME: 02/06/2019 3:15 pm REASON FOR STUDY: R sided chest pain COMPARISON: Chest radiograph RADIONUCLIDE AND DOSE: 5.4 millicuries TC-99m MAA Intravenous 28.8 millicuries TC-99m DTPA Inhaled aerosol TECHNIQUE: Eight views of the lungs acquired post ventilation of DTPA aerosol. Eight matching views of the lungs acquired following injection of MAA. LIMITATIONS: None. FINDINGS: VENTILATION: Focal ventilatory abnormality superior segment of the left lower lobe. Other mccormick normal PERFUSION: Matching perfusion defects superior segment left lower lobe. Otherwise normal OTHER: No other significant finding. IMPRESSION: Matching V/Q defects superior segment left lower lobe. Otherwise low probability pulmon mandeep embolus. TECHNICAL DOCUMENTATION: JOB ID: [id number] [employer]- All Rights Reserved Reading location - IP/workstation name: [email or web address]
--- NOTE | 2019-02-06 20:48 | EKG REPORT ---
SEVERITY:- BORDERLINE ECG - SINUS RHYTHM BORDERLINE RIGHT AXIS DEVIATION LOW VOLTAGE THROUGHOUT BORDERLINE R WAVE PROGRESSION, ANTERIOR LEADS : Confirmed by: Pilar Pereira MD 06-Feb-2019 20:47:35
[2019-02-06] MEDS ORDERED: MICONAZOLE NITRATE 2% CREAM 15GM ONE (20:58)
[2019-02-06] MEDS ORDERED: MICONAZOLE NITRATE 2% VAGINAL CREAM 45 GM TUBE PV ONE (21:00)
[2019-02-06] MEDS: SIMVASTATIN 10 MG TABLET PO SCH (22:33)
[2019-02-07] MEDS: IBUPROFEN 800 MG TABLET PO SCH ×2 (00:48→06:42)
[2019-02-07] MEDS: PIPERACILLIN SODIUM/TAZOBACTAM 3.375 GM in NORMAL SALINE 100 ML IV SCH ×3 (00:48→12:45)
[2019-02-07] MEDS: INSULIN GLARGINE,HUM.REC.ANLOG 1,000 UNIT/10 ML VIAL SUBCUT SCH (02:51)
[2019-02-07] MEDS: KETOROLAC TROMETHAMINE INJ/PF 30 MG/1 ML SDV IV SCH ×2 (05:01→14:52)
[2019-02-07] MEDS: CEFAZOLIN 1 GM/D5W RTU 1 GM/50 ML RTUPB IV SCH ×2 (05:29→14:52)
[2019-02-07 06:21] LABS: ALANINE AMINOTRANSFERASE 16 U/L (9-52); ALBUMIN 2.4 g/dL (3.5-5.0); ALKALINE PHOSPHATASE 161 U/L (38-126); ANION GAP 11 (5-19); ASPARTATE AMINO TRANSFERASE 14 U/L (14-36); BILIRUBIN,DIRECT 0.3 mg/dL (0.0-0.4); BILIRUBIN,TOTAL 0.3 mg/dL (0.2-1.3); BLOOD UREA NITROGEN 51 mg/dL (7-20); CALCIUM 8.4 mg/dL (8.4-10.2); CARBON DIOXIDE 22 mmol/L (22-30); CHLORIDE 107 mmol/L (98-107); GLUCOSE 170 mg/dL (75-110); PHOSPHORUS 5.9 mg/dL (2.5-4.5); POTASSIUM 4.2 mmol/L (3.6-5.0); SODIUM 140.1 mmol/L (137-145); TOTAL PROTEIN 5.9 g/dL (6.3-8.2)
--- NOTE | 2019-02-07 08:09 | PDOC PROGRESS REPORT ---
Subjective Progress Note for:: 02/07/19 Subjective:: She reports not feeling better today. Reason For Visit: PID,UNCONT DM, LEUKOCYTOSIS Physical Exam - Physical Exam Vital Signs: Temp Pulse Resp BP Pulse Ox 98.3 F 88 16 140/60 H 99 02/07/19 03:18 02/07/19 03:18 02/07/19 03:18 02/07/19 03:18 02/07/19 03:18 Intake & Output 02/06/19 02/07/19 02/08/19 06:59 06:59 06:59 Intake Total 250 3100 Output Total 1025 Balance -775 3100 Weight 145 kg 146.4 kg General appearance: PRESENT: mild distress, morbidly obese Head exam: PRESENT: atraumatic GI/Abdominal exam: PRESENT: other - vertical incision with sarah and dressing between the sarah. The dressing was removed and there is some drainage between the sarah. Result Laboratory Results: 02/06/19 05:30 02/07/19 05:40 02/07/19 05:40 Sodium 140.1 Potassium 4.2 Chloride 107 Carbon Dioxide 22 Anion Gap 11 BUN 51 H Creatinine 2.50 H Est GFR ( Amer) 25 L Est GFR (Non-Af Amer) 21 L Glucose 170 H Calcium 8.4 Phosphorus 5.9 H Magnesium 2.0 Total Bilirubin 0.3 AST 14 ALT 16 Alkaline Phosphatase 161 H Total Protein 5.9 L Albumin 2.4 L Impressions: Transvaginal US 01/27/19 06:07 IMPRESSION: Left hydrosalpinx or pyosalpinx. Correlate with pelvic exam. Pelvis Ultrasound 02/01/19 09:38 IMPRESSION: LIMITED STUDY. CYSTIC AREA IN THE LEFT OVARY AND QUESTIONABLE FLUID IN THE LEFT FALLOPIAN TUBE. LIMITED VISUALIZATION DUE TO TRANSABDOMINAL TECHNIQUE AND THE PATIENT'S BODY HABITUS. IF FURTHER EVALUATION IS INDICATED, AN MRI OF THE PELVIS MAY BE NECESSARY FOR MORE COMPLETE VISUALIZATION. Abdomen Ultrasound 02/01/19 09:39 IMPRESSION: LIMITED STUDY. HEPATOMEGALY WITH FATTY INFILTRATION OF THE LIVER. SMALL AMOUNT OF FREE FLUID IN THE SUBHEPATIC SPACE. Abdomen/Pelvis CT 02/01/19 16:38 IMPRESSION: When compared to the previous examination there has been interval worsening of inflammatory change and fluid in the abdomen and pelvis with some thickening of the peritoneal fascia, fluid around the liver and in the right subphrenic space and increasing fluid in the pelvis as well as increase in size of the soft tissue density in the left adnexa. Recommend further evaluation with intravenous contrast. Based on this examination possibility of TOA and/or pyelonephritis is not excluded. Clinical correlation would also be beneficial Development of small amount of inflammatory infiltrate in the right lung base with right pleural effusion Chest X-Ray 02/02/19 00:00 IMPRESSION: Mild patchy right basilar airspace disease suspicious for pneumonia. Lung Scan-VQ NM 02/06/19 12:58 IMPRESSION: Matching V/Q defects superior segment left lower lobe. Otherwise low probability pulmonary embolus. She is post op and still with a high WBC. This is concerning. We will need to get gen surgery and medicine impression and consider transfer to tertiary care. Assessment & Plan - Diagnosis (1) Abdominal pain Qualifiers: Abdominal location: upper abdomen, unspecified Qualified Code(s): R10.10 - Upper abdominal pain, unspecified Is this a current diagnosis for this admission?: Yes (2) Leukocytosis Qualifiers: Leukocytosis type: unspecified Qualified Code(s): D72.829 - Elevated white blood cell count, unspecified Is this a current diagnosis for this admission?: Yes
--- NOTE | 2019-02-07 09:08 | PDOC TRANSFER SUMMARY ---
General Admission Date/PCP: 01/27/19 09:52 KETAN VALLE DO Admission Date: 01/27/19 Transfer Date: 02/07/19 Accepting Facility: [facility] Accepting Physician: Dr. Sandra Moreno Resuscitation Status: Full Code - Transfer Diagnosis (1) Chest pain Is this a current diagnosis for this admission?: Yes (2) Abdominal pain Is this a current diagnosis for this admission?: Yes (3) TOA (tubo-ovarian abscess) Is this a current diagnosis for this admission?: Yes (4) JUANA (acute kidney injury) Is this a current diagnosis for this admission?: Yes (5) Hypertension Is this a current diagnosis for this admission?: Yes (6) Hyperlipidemia Is this a current diagnosis for this admission?: Yes (7) Diabetes Is this a current diagnosis for this admission?: Yes (8) Fatty liver disease, nonalcoholic Is this a current diagnosis for this admission?: Yes (9) Hydrosalpinx Is this a current diagnosis for this admission?: Yes (10) Morbid obesity with BMI of 50.0-59.9, adult Is this a current diagnosis for this admission?: Yes - Transfer Medications Home Medications: Aspirin [Adult Low Dose Aspirin EC] 81 mg PO DAILY 11/20/17 Cetirizine HCl [Zyrtec 10 mg Tablet] 10 mg PO DAILY 11/20/17 Furosemide [Lasix 20 mg Tablet] 20 mg PO DAILYP PRN 11/20/17 Insulin Detemir [Levemir Flextouch] 74 units SQ DAILY 11/20/17 Lisinopril/Hydrochlorothiazide [Zestoretic 20-25 mg Tablet] 1 tab PO DAILY 11/20/17 Pregabalin [Lyrica] 150 mg PO Q8HP PRN 11/20/17 Simvastatin [Zocor 20 mg Tablet] 20 mg PO QHS 11/20/17 Dulaglutide [Trulicity] 1.5 mg SQ MO@1000 01/26/18 Insulin Lispro [Humalog Insulin 100 Unit/1 ml 3 ml Vial] 0 unit SUBCUT .SLD SCALE 01/26/18 Oxycodone HCl [Oxy-Ir 5 mg Tablet] 15 mg PO Q6HP PRN 01/26/18 Albuterol Sulfate [Proair Hfa Inhalation Aerosol 8.5 gm Mdi] 2 puff IH Q6HP PRN 01/27/19 Clotrimazole [Athletic Foot Cream] 1 applic TP BID MDD left forearm 01/27/19 Ranitidine HCl [Zantac 150 mg Tablet] 150 mg PO BID 01/27/19 Varenicline Tartrate [Chantix 1 Mg Tablet] 1 mg PO BIDPCBS 01/27/19 Transfer Medications: Current Medications Acetaminophen (Tylenol 325 Mg Tablet) 650 mg PO Q4HP PRN PRN Reason: fever greater than 101 F Stop: 03/06/19 01:35 Albuterol (Proair Hfa Inhalation Aerosol 8.5 Gm Mdi) 2 puff IH RTQ6HP PRN PRN Reason: SHORTNESS OF BREATH Stop: 02/27/19 18:58 Amlodipine Besylate (Norvasc 10 Mg Tablet) 10 mg PO DAILY KD Stop: 03/08/19 09:59 Last Admin: 02/06/19 09:40 Dose: 10 mg Documented by: Ascorbic Acid (Vitamin C 500 Mg Tablet) 500 mg PO BID KD Stop: 02/28/19 09:59 Last Admin: 02/06/19 17:18 Dose: 500 mg Documented by: Aspirin (Ecotrin 81 Mg Ec Tablet) 81 mg PO DAILY KD Stop: 02/28/19 09:59 Last Admin: 02/06/19 09:40 Dose: 81 mg Documented by: Cetirizine HCl (Zyrtec 10 Mg Tablet) 10 mg PO DAILY KD Stop: 02/28/19 09:59 Last Admin: 02/06/19 09:40 Dose: 10 mg Documented by: Clonidine (Catapres 0.1 Mg Tablet) 0.1 mg PO DAILY KD Stop: 03/08/19 10:29 Last Admin: 02/06/19 12:38 Dose: 0.1 mg Documented by: Dextrose (Dextrose Inj 50% Syringe (25 Gm/50 Ml)) 12.5 gm IV PRN PRN; Protocol PRN Reason: FOR BG 50-69 IN ALERT PATIENT Stop: 02/26/19 13:59 Last Admin: 02/03/19 17:27 Dose: 12.5 gm Documented by: Dextrose (Dextrose Inj 50% Syringe (25 Gm/50 Ml)) 25 gm IV PRN PRN; Protocol Stop: 02/26/19 13:59 Dibucaine (Nupercainal 1% Oint 56 Gm) 1 applic MI PRN PRN PRN Reason: HEMORRHOIDS Stop: 03/03/19 05:21 Last Admin: 02/01/19 05:50 Dose: 1 applic Documented by: Diphtheria/Tetanus/Acell Pertussis (Boostrix Vaccine 0.5 Ml Syringe) 0.5 ml IM .DISCHARGE PRN PRN Reason: IF NOT PREVIOUSLY VACCINATED Stop: 03/06/19 01:35 Docusate Sodium (Colace 100 Mg Capsule) 100 mg PO BID [facility] Stop: 03/06/19 09:59 Last Admin: 02/06/19 17:18 Dose: 100 mg Documented by: Glucagon (Glucagen Inj 1 Mg Vial) 1 mg IM PRN PRN; Protocol PRN Reason: EVALUATE FOR BG < 70 Stop: 02/26/19 13:59 Glucose (Glutose 40% Gel 15 Gm Tube) 15 gm PO PRN PRN; Protocol PRN Reason: FOR BG 50-69 IN ALERT PATIENT Stop: 02/26/19 13:59 Glucose (Glutose 40% Gel 15 Gm Tube) 30 gm PO PRN PRN; Protocol PRN Reason: FOR BG < 50 IN ALERT PATIENT Stop: 02/26/19 13:59 Heparin Sodium (Porcine) (Heparin Flush 10 Unit/Ml 5 Ml Disp.Syrg) 30 unit IV Q8 [facility] Stop: 03/01/19 21:59 Last Admin: 02/07/19 05:28 Dose: 30 unit Documented by: Heparin Sodium (Porcine) (Heparin Flush 10 Unit/Ml 5 Ml Disp.Syrg) 30 unit IV .AFTER EACH USE PRN PRN Reason: AFTER EACH INTERMITTENT USE Stop: 03/01/19 17:59 Last Admin: 02/07/19 05:29 Dose: 30 unit Documented by: Hydralazine HCl (Apresoline Inj/Pf 20 Mg/1 Ml Sdv) 10 mg IV Q6HP PRN PRN Reason: Give For Sbp > 170 Stop: 03/07/19 20:57 Acetaminophen (Ofirmev Inj/Pf 1000 Mg/100 Ml Sdv) 1,000 mg in 100 mls @ 400 mls/hr IV ONCEP PRN PRN Reason: THIS MED IS NOT "PRN" Piperacillin Sod/Tazobactam (Sod 3.375 gm/ Sodium Chloride) 100 mls @ 200 mls/hr IV Q6 KD Stop: 02/11/19 05:59 Last Admin: 02/07/19 06:41 Dose: 200 mls/hr, 200 mls/hr Documented by: Cefazolin Sodium/Dextrose (Ancef Rtu 1 Gm/D5w 50 Ml Premix Bag) 1 gm in 50 mls @ 100 mls/hr IV Q8 [facility] Stop: 02/11/19 13:59 Last Infusion: 02/07/19 06:57 Dose: Infused Documented by: Sodium Chloride (Nacl 0.9% 1000 Ml Iv Soln) 1,000 mls @ 125 mls/hr IV CONTINUOUS PRN PRN Reason: THIS MED IS NOT "PRN" Stop: 03/07/19 20:09 Last Admin: 02/06/19 22:41 Dose: 125 mls/hr Documented by: Insulin Glargine (Lantus Insulin 100 Unit/1 Ml 10 Ml) 74 unit SUBCUT QHS [facility] Stop: 02/26/19 21:59 Last Admin: 02/07/19 02:51 Dose: Not Given Documented by: Insulin Human Lispro (Humalog Insulin 100 Unit/1 Ml 3 Ml Vial) 0 - 12 unit SUBCUT [facility]; Protocol Stop: 02/26/19 15:59 Last Admin: 02/06/19 23:50 Dose: 4 unit Documented by: Ketorolac Tromethamine (Toradol Inj/Pf 30 Mg/1 Ml Sdv) 30 mg IV Q8 [facility] Stop: 02/09/19 05:59 Last Admin: 02/07/19 05:01 Dose: 30 mg Documented by: Measles/Mumps/Rubella Vaccine Live (M-M-R Ii Vaccine Kit 0.5 Ml) 0.5 ml SUBCUT .DISCHARGE PRN PRN Reason: IF NON-IMMUNE Stop: 03/06/19 01:35 Metoprolol Tartrate (Lopressor Inj/Pf 5 Mg/5 Ml Sdv) 5 mg IV Q6HP PRN PRN Reason: Give For Sbp > 170 or HR > 120 Stop: 03/07/19 20:57 Miconazole Nitrate (Monistat-7 Vaginal Cream 45 Gm Tube) 1 applic PV BID [facility] Stop: 02/13/19 10:01 Morphine Sulfate (Morphine 10 Mg/Ml Inj) 2 mg IV Q4HP PRN PRN Reason: FOR PAIN SCALE 4-5 Stop: 02/10/19 14:23 Last Admin: 02/03/19 14:52 Dose: 2 mg Documented by: Morphine Sulfate (Morphine 10 Mg/Ml Inj) 5 mg IV Q4HP PRN PRN Reason: FOR PAIN SCALE 1-3 Stop: 02/11/19 01:35 Last Admin: 02/04/19 03:06 Dose: 5 mg Documented by: Ondansetron HCl (Zofran Inj/Pf 4 Mg/2 Ml Sdv) 4 mg IV Q8HP PRN PRN Reason: FOR NAUSEA/VOMITING Stop: 02/26/19 15:18 Ondansetron HCl (Zofran Odt 4 Mg Tablet) 4 mg PO Q8HP PRN PRN Reason: FOR NAUSEA/VOMITING Stop: 03/07/19 19:40 Oxycodone/Acetaminophen (Percocet 5-325 Mg Tablet) 1 tab PO Q4HP PRN PRN Reason: FOR PAIN SCALE 1-2 Stop: 02/11/19 01:35 Oxycodone/Acetaminophen (Percocet 5-325 Mg Tablet) 2 tab PO Q4HP PRN PRN Reason: FOR PAIN SCALE 3-5 Stop: 02/11/19 01:35 Last Admin: 02/06/19 22:34 Dose: 2 tab Documented by: Pantoprazole Sodium (Protonix Iv Inj 40 Mg Vial) 40 mg IV Q12 [facility] Stop: 02/08/19 21:59 Last Admin: 02/06/19 22:33 Dose: 40 mg Documented by: Patient Own Medication (Dulaglutide [Trulicity]) 1.5 mg SUBCUT .MO@1000 [facility] Stop: 02/27/19 19:14 Pregabalin (Lyrica 75 Mg Capsule) 150 mg PO Q8HP PRN PRN Reason: FOR NERVE PAIN Stop: 02/27/19 19:10 Last Admin: 02/01/19 10:23 Dose: 150 mg Documented by: Vit/Iron/Folic Acid/DHA ( Multi + Dha Capsule) 1 cap PO DAILY [facility] Stop: 03/06/19 09:59 Last Admin: 02/06/19 09:41 Dose: 1 cap Documented by: Promethazine HCl (Phenergan Inj 25 Mg/1 Ml Vial) 25 mg IV Q4HP PRN PRN Reason: UNRESOLVED NAUSEA/VOMITING Stop: 02/26/19 15:19 Last Admin: 01/27/19 15:38 Dose: 25 mg Documented by: Promethazine HCl (Phenergan Inj 25 Mg/1 Ml Vial) 25 mg IV Q6HP PRN PRN Reason: nausea and vomiting Stop: 03/06/19 01:35 Senna/Docusate Sodium (Senna Plus Tablet) 2 each PO BID KD Stop: 03/08/19 09:59 Last Admin: 02/06/19 17:17 Dose: 2 each Documented by: Simethicone (Mylicon 80 Mg Chewable Tablet) 80 mg PO QIDP PRN PRN Reason: FOR GAS (FLATULENCE) Stop: 03/06/19 01:35 Last Admin: 02/05/19 04:39 Dose: 80 mg Documented by: Simvastatin (Zocor 10 Mg Tablet) 20 mg PO QHS [facility] Stop: 02/27/19 21:59 Last Admin: 02/06/19 22:33 Dose: 20 mg Documented by: Sodium Chloride (Saline Flush 2.5 Ml Monoject Prefil Syrin) 2.5 ml IV Q8 [facility] Stop: 03/07/19 14:29 Last Admin: 02/07/19 05:52 Dose: Not Given Documented by: Marbella Carmen/Glycerin (Tucks Take-Alongs Pads 1 Each) 1 each TP PRN PRN PRN Reason: HEMORRHOIDS Stop: 03/03/19 05:24 Last Admin: 02/01/19 05:48 Dose: 1 each Documented by: - Allergies Allergies/Adverse Reactions: No Known Allergies Allergy (Verified 01/26/19 22:01) Hospital Course Hospital Course: H&P per Dr. Amy Goodsonjamie WOOD is a 44 year old presented to [facility] ED complaining of low abdominal pain which started 3-4 days ago. Patient denies fever/chills. Patient was having some nausea secondary to the pain. Patient denies vaginal discharge and foul odor. He is currently sexually active. Her last menstrual cycle started on January 25. She is currently bleeding. CT Abd/Pelvis showed Complex left adnexal mass with mild adjacent stranding. Mild stranding adjacent to the distal left ureter, which may be due to an infectious/inflammatory process. Hospital Course: RUTH WOOD is a 44 year old female with history of diabetes, hypertension, neuropathy, R BKA and hyperlipidemia. She was initially admitted with abdominal pain on 01/27/2019. Abd/Pelvic US revealed L ovarian cyst. CT Abd/Pelvis showed adnexal mass with adjacent stranding to the distal left ureter . Patient was admitted for PID, placed on Rocephin and doxycycline. Her pain continued to worsen, and seemed out of proportion to these findings. Repeat CT Abd/Pelvis revealed possible TOA, inflammatory changes and fluid in the abdomen and pelvis with some thickening of the peritoneal fascia, fluid around the liver in the right subphrenic space and fluid in the pelvis as well as increase in size of the soft tissue density in the left adnexa. On 02/03/[address] Dr[address] Goodman and Dr. Pierre preformed a Laparotomy with L salpingoophrectomy. The L adenexa was purulent within the ovary, ovary and fallopian tube removed. 2cm abscess removed from a fold of the small bowel. There was obvious purulent exudate throughout the pelvic cavity and abdominal cavity. Abdominal washout was also preformed. The patient was placed on triple antibiotic therapy - Ancef, Flagyl and Zosyn. Postoperatively, her clinical picture did not improve. Her WBC continued to climb 16-->22 and her renal function declined (creatinine 1.8-->3.06). The patient persistently complains of abdominal pain and intermittently has been vomiting. She has remained afebrile, HR and BP still remain within normal limits. Intra-abdominal abscess culture shows no growth at 2 days (preliminary results). Since the patient is not improving, and her clinical picture continues to get worse, would recommend transferring the patient to a tertiary hospital. Dr. Sandra Moreno at [facility] has graciously accepted this patient. Plan to transfer to [facility] today. Physical Exam Vital Signs: Temp Pulse Resp BP Pulse Ox 98.1 F 87 22 H 144/65 H 96 02/07/19 07:43 02/07/19 07:43 02/07/19 07:43 02/07/19 07:43 02/07/19 07:43 Intake & Output 02/06/19 02/07/19 02/08/19 06:59 06:59 06:59 Intake Total 250 3100 Output Total 1025 Balance -775 3100 Weight 145 kg 146.4 kg General appearance: PRESENT: morbidly obese Head exam: PRESENT: atraumatic Eye exam: PRESENT: conjunctiva pink, PERRLA Mouth exam: PRESENT: moist, tongue midline Teeth exam: PRESENT: poor dentation Neck exam: PRESENT: full ROM Respiratory exam: PRESENT: clear to auscultation mary, symmetrical, unlabored, other - PATIENT C/O R CHEST PAIN UPON INHALATION. VQ SCAN NEGATIVE FOR PE Cardiovascular exam: PRESENT: RRR Pulses: PRESENT: normal radial pulses - RLE ONLY. L BKA, normal dorsalis pedis pul - R FOOT ONLY Vascular exam: PRESENT: normal capillary refill GI/Abdominal exam: PRESENT: normal bowel sounds, soft, tenderness. ABSENT: distended Rectal exam: PRESENT: deferred Gentrourinary exam: ABSENT: indwelling catheter Extremities exam: PRESENT: full ROM, pedal edema - TRACE Musculoskeletal exam: PRESENT: ambulatory, full ROM Neurological exam: PRESENT: alert, awake, oriented to person, oriented to place, oriented to time, oriented to situation Psychiatric exam: PRESENT: appropriate affect Skin exam: PRESENT: dry, intact, normal color, other - MIDLINE ABDOMINAL INCISION W/ CARLIE. [address] Results Laboratory Results: 02/06/19 05:30 02/07/19 05:40 02/07/19 05:40 Sodium 140.1 Potassium 4.2 Chloride 107 Carbon Dioxide 22 Anion Gap 11 BUN 51 H Creatinine 2.50 H Est GFR ( Amer) 25 L Est GFR (Non-Af Amer) 21 L Glucose 170 H Calcium 8.4 Phosphorus 5.9 H Magnesium 2.0 Total Bilirubin 0.3 AST 14 ALT 16 Alkaline Phosphatase 161 H Total Protein 5.9 L Albumin 2.4 L Impressions: Transvaginal US 01/27/19 06:07 IMPRESSION: Left hydrosalpinx or pyosalpinx. Correlate with pelvic exam. Pelvis Ultrasound 02/01/19 09:38 IMPRESSION: LIMITED STUDY. CYSTIC AREA IN THE LEFT OVARY AND QUESTIONABLE FLUID IN THE LEFT FALLOPIAN TUBE. LIMITED VISUALIZATION DUE TO TRANSABDOMINAL TECHNIQUE AND THE PATIENT'S BODY HABITUS. IF FURTHER EVALUATION IS INDICATED, AN MRI OF THE PELVIS MAY BE NECESSARY FOR MORE COMPLETE VISUALIZATION. Abdomen Ultrasound 02/01/19 09:39 IMPRESSION: LIMITED STUDY. HEPATOMEGALY WITH FATTY INFILTRATION OF THE LIVER. SMALL AMOUNT OF FREE FLUID IN THE SUBHEPATIC SPACE. Abdomen/Pelvis CT 02/01/19 16:38 IMPRESSION: When compared to the previous examination there has been interval worsening of inflammatory change and fluid in the abdomen and pelvis with some thickening of the peritoneal fascia, fluid around the liver and in the right subphrenic space and increasing fluid in the pelvis as well as increase in size of the soft tissue density in the left adnexa. Recommend further evaluation with intravenous contrast. Based on this examination possibility of TOA and/or pyelonephritis is not excluded. Clinical correlation would also be beneficial Development of small amount of inflammatory infiltrate in the right lung base with right pleural effusion Chest X-Ray 02/02/19 00:00 IMPRESSION: Mild patchy right basilar airspace disease suspicious for pneumonia. Lung Scan-VQ NM 02/06/19 12:58 IMPRESSION: Matching V/Q defects superior segment left lower lobe. Otherwise low probability pulmonary embolus. Status: Imported from PACS Plan Time Spent: Greater than 30 Minutes
[2019-02-07 09:34] LABS: HEMATOCRIT 23.1 % (36.0-47.0); MEAN CORPUSCULAR HEMOGLOBIN 27.7 pg (27.0-33.4); MEAN CORPUSCULAR VOLUME 81 fl (80-97); PLATELET COUNT 436 10^3/uL (150-450); RED BLOOD COUNT 2.84 10^6/uL (3.72-5.28); RED CELL DISTRIBUTION WIDTH 14.5 % (11.5-14.0); WHITE BLOOD COUNT 20.5 10^3/uL (4.0-10.5)
[2019-02-07 09:40] LABS: HEMOGLOBIN 7.9 g/dL (12.0-15.5)
[2019-02-07] MEDS: AMLODIPINE BESYLATE 10 MG TABLET PO SCH (09:45)
[2019-02-07] MEDS: ASCORBIC ACID 500 MG TABLET PO SCH (09:45)
[2019-02-07] MEDS: CETIRIZINE 10 MG TABLET PO SCH (09:45)
[2019-02-07] MEDS: INSULIN LISPRO 100 UNIT/ML 3 ML VIAL SUBCUT SCH ×2 (09:46→14:53)
[2019-02-07] MEDS: PRENATAL VITAMIN W DHA CAPSULE PO SCH (09:46)
[2019-02-07] MEDS: SENNOSIDES/DOCUSATE 8.6-50 MG 1 EACH TABLET PO SCH (09:46)
[2019-02-07] MEDS: DOCUSATE SODIUM 100 MG CAPSULE PO SCH (09:46)
[2019-02-07] MEDS: CLONIDINE HCL 0.1 MG TABLET PO SCH (09:46)
[2019-02-07] MEDS: ASPIRIN 81 MG TABLET, ENT COATED PO SCH (09:46)
[2019-02-07] MEDS: OXYCODONE-ACETAMINOPHEN 5-325 MG TABLET PO PRN (09:48)
[2019-02-07] MEDS: PANTOPRAZOLE SODIUM 40 MG VIAL IV SCH (09:48)
[2019-02-07 09:57] LABS: ABSOLUTE LYMPHOCYTES# (MANUAL) 2.7 10^3/uL (0.5-4.7); ABSOLUTE MONOCYTES # (MANUAL) 0.4 10^3/uL (0.1-1.4); ABSOLUTE NEUTROPHILS# (MANUAL) 17.2 10^3/uL (1.7-8.2); BAND NEUTROPHILS % (MANUAL) 1 % (3-5); BASOPHILS % (MANUAL) 1 % (0-2); EOSINOPHILS % (MANUAL) 0 % (0-6); LYMPHOCYTES % (MANUAL) 13 % (13-45); MONOCYTES % (MANUAL) 2 % (3-13); SEGMENTED NEUTROPHILS % (MAN) 83 % (42-78); TOTAL CELLS COUNTED 100
[2019-02-07 09:58] LABS: ANISOCYTOSIS SLIGHT; POLYCHROMASIA SLIGHT; TOXIC VACUOLATION PRESENT
[2019-02-07 09:59] LABS: PLATELET COMMENT ADEQUATE
[2019-02-07] MEDS ORDERED: MICONAZOLE NITRATE 2% VAGINAL CREAM 45 GM TUBE PV SCH (10:00)
[2019-02-07] MEDS: NORMAL SALINE 1000 ML 1,000 ML IV PRN (12:45)
[2019-02-07 16:10] VITALS: BP 172/69
== END 2019-02-07 16:25 | disposition short-term general hospital (02) | DRG 742 ==
LOC: ER 22:01 → EH 01-27 09:52 → 2N 01-27 10:45
PROVIDERS: ADMIT Obstetrics & Gynecology; ATTEND Obstetrics & Gynecology
PROC: 02HV33Z Insertion of Infusion Device into Superior Vena Cava, Percutaneous Approach (ICD-10-PCS; 2019-01-30)
PROC: 0UT60ZZ Resection of Left Fallopian Tube, Open Approach (ICD-10-PCS; principal; 2019-02-04)
PROC: 0UT10ZZ Resection of Left Ovary, Open Approach (ICD-10-PCS; 2019-02-04)
DX: N70.11 Chronic salpingitis (principal); Z68.43 Body mass index [BMI] 50.0-59.9, adult; N17.9 Acute kidney failure, unspecified; K63.0 Abscess of intestine; N39.0 Urinary tract infection, site not specified; E11.40 Type 2 diabetes mellitus with diabetic neuropathy, unspecified; E66.01 Morbid (severe) obesity due to excess calories; K76.0 Fatty (change of) liver, not elsewhere classified; G89.29 Other chronic pain; E78.5 Hyperlipidemia, unspecified; I10 Essential (primary) hypertension; J45.909 Unspecified asthma, uncomplicated; G47.30 Sleep apnea, unspecified; N83.202 Unspecified ovarian cyst, left side; D50.8 Other iron deficiency anemias; N70.93 Salpingitis and oophoritis, unspecified; R07.81 Pleurodynia; Z79.82 Long term (current) use of aspirin; Z79.4 Long term (current) use of insulin; Z89.512 Acquired absence of left leg below knee; Z87.891 Personal history of nicotine dependence; Z83.3 Family history of diabetes mellitus; Z82.49 Family history of ischemic heart disease and other diseases of the circulatory system; Z53.31 Laparoscopic surgical procedure converted to open procedure
CPT/HCPCS: 36415; 71045; 74176; 76700; 76830; 76856; 78582; 790; 80048; 80053; 81001; 81025; 82962; 83036; 83605; 83690; 83735; 84100; 85025; 85027; 86850; 86900; 86901; 87040; 87045; 87070; 87075; 87086; 87205; 87210; 87491; 87591; 88305; 93005; 93010; 93976; 94799; 96361; 96365; 96375; 99285; A9540; A9567; C1751; J0131; J0330; J0690; J0696; J1170; J1335; J1642; J1815; J1885; J2250; J2270; J2405; J2543; J2550; J2704; J3010; J3490; J7030; J7060; J7120; Q9969; S0028; S0164